=== PATIENT | male | born 1955 | race Caucasian/White ===

== ENCOUNTER 2017-01-21 13:53 | Inpatient (IN) | payer OTHER ==
[~2017-01-21] VITALS: Ht 180.3 cm; Wt 94.9 kg
[2017-01-21] MEDS: ATORVASTATIN 40 MG (LIPITOR) TABLET PO SCH (20:54)
[2017-01-21] MEDS: meTOprolol TARTRATE 25 MG (LOPRESSOR) TABLET PO SCH (20:54)
[2017-01-21] MEDS: inSUlin DETERMIR 1 UNIT/0.01 ML (LEVEMIR) CHARGE PER UNIT SQ SCH (20:54)
[2017-01-21] MEDS: hydrALAZINE (APRESOLINE) 25 MG TAB PO SCH (21:47)
[2017-01-21 21:52] VITALS: BP 176/88
[2017-01-22 06:19] VITALS: BP 161/86
[2017-01-22] MEDS: hydrALAZINE (APRESOLINE) 25 MG TAB PO SCH ×3 (06:22→21:06)
[2017-01-22] MEDS: amLODIPine 5 MG (NORVASC) TAB PO SCH (08:14)
[2017-01-22] MEDS: ASPIRIN 325 MG (5 GR) TABLET PO SCH (08:14)
[2017-01-22] MEDS: meTOprolol TARTRATE 25 MG (LOPRESSOR) TABLET PO SCH ×2 (08:14→21:06)
--- NOTE | 2017-01-22 09:46 | Occupational Therapy Eval ---
OT Evaluation-General/PLF Medical Diagnosis Admission Date Jan 21, 2017 at 18:40 Medical Diagnosis: CVA with right hemiparesis Onset Date: Jan 17, 2017 Therapy Diagnosis Therapy Diagnosis: Weakness, Decreased ADL skills Height/Weight Height (Feet): 5 Height (Inches): 11.00 Weight (Pounds): 206 Weight (Ounces): 12.8 Precautions Precautions/Isolations: Aspiration, Fall Prevention Safety Interventions: Reorient-PRN Weight Bear Status Weight Bearing Restriction: Weight Bearing/Tolerated Referral Physician: Damien Referral Reason: Activity Tolerance, Self Care, Evaluation/Treatment, Strengthening/ROM Medical History Pertinent Medical History: DM Additional Medical History Pt. states that he had a CVA 12 years ago. Current History Pt. fell the night before his CVA. Fell the next morning as well. Went to work. Began having symptoms. Reviewed History: Yes Social History Home: Single Level Current Living Status: Significant Other Entry Into Home: Stairs With Railing Steps Into Home: 3 ADL-Prior Level of Function ADL PLOF Comments Pt. was independent with daily tasks. DME/Equipment: Tub/Shower DME/Equipment Comments Pt. has no equipment at home. 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 Lives in [place] with spouse. Drive Self: Yes OT Current Status Subjective No pain reported. Appearance Pt. in bed. Verbalizes greeting. Agrees to bathe. Mental Status/Objective Patient Orientation: Person Current Hand Dominance: Right Upper Extremity ROM Left- WFL Right- no functional movement noted throughout. Upper Extremity Coordination Left- intact Right- impaired. Upper Extremity Sensation Right- pt. is able to indicate light touch throughout hand, forearm, and upper arm. Upper Extremity Strength No trace movement or strength noted in right UE. Left UE- WFL ADL-Treatment Functional Bieber Measure 0=Not Assessed/NA 4=Minimal Assistance 1=Total Assistance 5=Supervision or Setup 2=Maximal Assistance 6=Modified Bieber 3=Moderate Assistance 7=Complete IndependenceIRFPAI Quality Coding Scale 6 Independent with activity with or without an assistive device 5 Patient requires set up or clean up by helper. Patient completes activity by themselves 4 Supervision or touching assist (CGA). [place] provide cues , steadying assist 3 The helper provides less than half the effort to complete the activity 2 The helper provides more than half the effort to complete the activity 1 Dependent. The helper does all the effort to complete an activity 7 Patient refused to complete or attempt activity 9 The patient did not perform the activity before the current illness or injury 88 Not attempted due to Medical conditions or safety concerns Grooming (FIM): 5 (Pt. is able to comb hair with left hand with set up.) Bathing (FIM): 2 (Overall, pt requires max assist. Unable to reach bilateral feet or LE. Unable to wash left arm or marta area.) Shower/Bathe Self (QC): 2 Upper Body Dressing (FIM): 2 (Max assist to don shirt, mod assist to doff shirt.) Upper Body Dressing (QC): 2 Lower Body Dressing (FIM): 2 (Pt. is able to doff socks, but unable to put them back on. Has difficulty threading feet into brief and pants.) Lower Body Dressing (QC): 2 On/Off Footwear (QC): 2 Toileting (FIM): 2 (Pt. slightly incontinent of bowel in brief. Unaware of this. OT cleansed pt. Pt. attempted to cleanse self, but unable to fully clean self.) Toileting Hygiene (QC): 2 Transfers (B, C, W/C) (FIM): 3 (Mod assist for supine-sit, min/mod for sit- stand and transfer to chair.) Other Treatments OT/PT co-treated this date. PT focused on balance, LE strength, ambulation, and transfers. OT addressed ADL skills and UE ability. Co-treat due to pt's fatigue level and amount of skilled assist needed for fluid and functional assessment. Note that pt. has slight right sided neglect. Will test this more in depth later. Pt. and family educated about rehab stay, and need to be aware of right side. Both verbalize understanding. Noted that pt. does attend to right side during treatment, and attempts to engage right UE. Went back to room with all needs met. Transferred to lift chair. Education OT Patient Education: Correct positioning, Exercise program, Instructions to caregiver, Modified ADL techniques, Progress toward Goal/Update tx plan, Purpose of tx/functional activities, Reviewed precautions, Rehab process, Safety issues, Transfer techniques Teaching Recipient: Patient, Family Teaching Methods: Demonstration, Discussion Response to Teaching: Verbalize Understanding, Return Demonstration OT Short Term Goals Short Term Goals Time Frame: Jan 29, 2017 Eating(FIM): 5 Grooming(FIM): 5 Bathing(FIM): 4 Upper Body Dressing(FIM): 4 Lower Body Dressing(FIM): 4 Toileting(FIM): 4 Transfers (B,C,W/C) (FIM): 4 Toilet/Commode Transfer(FIM): 4 Shower Transfer(FIM): 4 Additional Short Term Goals: 1-Demonstrate ADL Tasks, 2-Verbalize Understanding , 3-ImproveStrength/Delmy 1=Demonstrate adherence to instructed precautions during ADL tasks. 2=Patient will verbalize/demonstrate understanding of assistive devices/ modifications for ADL. 3=Patient will improve strength/tolerance for activity to enable patient to perform ADL's. OT Laboratory Analyst Goals Senior Living Goals Time Frame: Feb 12, 2017 Eating (FIM): 6 Eating (QC): 6 Groomin Oral Hygiene (QC): 6 Bathing(FIM): 5 Shower/Bathe Self (QC): 5 Upper Body Dressing(FIM): 6 Upper Body Dressing (QC): 6 Lower Body Dressing(FIM): 6 Lower Body Dressing (QC): 6 On/Off Footwear (QC): 6 Toileting(FIM): 6 Toileting Hygiene (QC): 6 Transfers (B,C,W/C) (FIM): 6 Toilet/Commode Transfer(FIM): 6 Toilet/Commode Transfer (QC): 6 Shower Transfer(FIM): 6 Additional Goals: 1-Demonstrate ADL Tasks, 2-Verbalize Understanding, 3- ImproveStrength/Delmy 1=Demonstrate adherence to instructed precautions during ADL tasks. 2=Patient will verbalize/demonstrate understanding of assistive devices/ modifications for ADL. 3=Patient will improve strength/tolerance for activity to enable patient to perform ADL's. OT Education/Plan Problem List/Assessment Assessment: Decreased Activ Tolerance, Decreased Safety Aware, Decreased UE Strength, Dependent Transfers, Impaired Bed Mobility, Impaired Cognition, Impaired Coordination, Impaired Funct Balance, Impaired I ADL's, Impaired Self- Care Skills Discharge Recommendations Plan/Recommendations: Continue POC Therapy D/C Recommendations: Home w/ Family Support, Occupational Therapy Home Care Equpiment Recommendations-D/C: Extended Bath Bench, Hip Kit Barriers to Progress right sided weakness Treatment Plan/Plan of Care Treatment,Training & Education: Yes Patient would benefit from OT for education, treatment and training to promote independence in ADL's, mobility, safety and/or upper extremity function for ADL' s. Plan of Care: ADL Retraining, Caregiver Training, Cognitive Retraining, Functional Mobility, Group Exercise/Act as Ind, UE Funct Exercise/Act Treatment Duration: Feb 12, 2017 # of days/week 5-6 Agreement: Yes Rehab Potential: Good Time/GCodes Start Time: 08:35 Stop Time: 09:35 Total Time Billed (hr/min): 50 Billed Treatment Time [id number] 1, EVmod x 10minutes OT eval [id number] PT eval no charge [id number] ADL x 40 minutes (ADL x 2 due to time) co-treat- Please see note above. JL PÉREZ OT Jan 22, 2017 09:46
--- NOTE | 2017-01-22 09:54 | Consultation ---
History of Present Illness History of Present Illness Patient Consulted On(torres/time) 01/22/17 09:43 Date of Admission History of Present Illness patient came from [facility] in [place]. Patient is a 61-year-old male who had hypertension. Blood pressure 240/145 and a blood glucose of 259 patient developed weakness in his right side. Scans showed tiny intracerebral bleeding and bilateral ischemic changes Patient 11 years ago had a stroke on his right side. Patient lost weight and blood pressure went down and has not had to be in any blood pressure pills for the last 2 years Allergies and Home Medications Allergies Coded Allergies: No Known Drug Allergies (Unverified , 01/21/17) Home Medications No Active Prescriptions or Reported Meds Past Qjwkagz-Zhaivl-Lvaxxc Hx Patient Social History Alcohol Use: Denies Use Recreational Drug Use: No Smoking Status: Never a Smoker Recent Foreign Travel: No Recent Hopitalizations: Yes Physical Abuse Screen: No Sexual Abuse: No Immunizations Up To Date PED Vaccines UTD: No Seasonal Allergies Seasonal Allergies: No Surgeries Surgeries: Bladder Surgery Respiratory Hx Respiratory Disorders: No Cardiovascular Cardiac Disorders: Hypertension Cancer Cancer: Bladder Family Medical History Family Medial History: Cataracts 19 MOTHER Dementia 19 MOTHER Review of Systems-General Constitutional: weakness EENTM: no symptoms reported Respiratory: no symptoms reported Cardiovascular: other (hypertension) Gastrointestinal: no symptoms reported Genitourinary: no symptoms reported Physical Exam-General Problems Physical Exam Vital Signs Vital Sign - Last 12Hours 01/21/17 21:52 Temp 96.7 Pulse 69 Resp 20 B/P 176/88 Pulse Ox 99 O2 Delivery Room Air Capillary Refill : General Appearance: WD/WN no apparent distress Eyes: Bilateral Eye Normal Inspection HEENT: normal ENT inspection Neck: normal inspection Respiratory: chest non-tender lungs clear normal breath sounds no respiratory distress no accessory muscle use Cardiovascular: regular rate, rhythm no murmur Gastrointestinal: non tender soft Assessment/Plan Assessment/Plan Admission Diagnosis/Plan CVA on right. Hypertension. Diabetes. Patient when asked questions has a slow thought process. Patient unable to pick up operator right hand. Patient does move his right leg Clinical Quality Measures DVT/VTE Risk/Contraindication: Risk Factor Score Per Nursin RFS Level Per Nursing on Admit: 4+=Very High BENJY SANTANA DO Jan 22, 2017 09:54
[2017-01-22] MEDS: inSUlin ASPART (NovoLOG) 1 UNIT/0.01 ML (CHARGE PER UNIT) SC SCH ×3 (10:57→20:43)
--- NOTE | 2017-01-22 11:19 | Physical Therapy Evaluation ---
PT Evaluation-General Medical Diagnosis Admission Date Jan 21, 2017 at 18:40 Medical Diagnosis: CVA with right hemiparesis Onset Date: Jan 17, 2017 Therapy Diagnosis Therapy Diagnosis: weakness; abn gait Height/Weight Height (Feet): 5 Height (Inches): 11.00 Weight (Pounds): 206 Weight (Ounces): 12.8 Precautions Precautions/Isolations: Aspiration, Fall Prevention, Standard Precautions Weight Bear Status Weight Bearing Restriction: Weight Bearing/Tolerated Referral Physician: Damien Reason for Referral: Evaluation/Treatment Medical History Pertinent Medical History: CVA (11 yrs ago), DM Current History Pt admitted to acute rehab due to CVA with right sided weakness. 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 Reviewed History: Yes Social History Home: Single Level Current Living Status: Significant Other Entry Into Home: Stairs With Railing PT Steps Into Home: 3 Prior/Core FIM Prior Level of Function Functional Person Measure 0=Not Assessed/NA 4=Minimal Assistance 1=Total Assistance 5=Supervision or Setup 2=Maximal Assistance 6=Modified Person 3=Moderate Assistance 7=Complete Person Bed Mobility: 7 Transfers (B,C,W/C) (FIM): 7 Gait: 7 Indep with all mobility. 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 Active. PT Evaluation-Current Subjective Pt reports he had a stroke on Tuesday. 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 Pt agreeable to PT. and son present. Pain Numeric Pain Scale: 0-No Pain Location: No Pain Reported Objective Patient Orientation: Person, Place, Time, Situation Problem Solving: Good (although he is a bit impulsive) ROM/Strength ROM Lower Extremities WNL all planes; AAROM right LE. Strenght Lower Extremities Left LE strength is grossly 5/5 throughout. Right: DF 1/5, quads 2/5, hamstring 2/5, hip flex 2/5 Integumentary/Posture Integumentary intact Bowel Incontinence: No Bladder Incontinence: Yes (urgency ) Posture normal and symmetrical Neuromuscular (Tone, Coordination, Reflexes) No sig increased or decreased tone right side; coordination greatly affected right but reflexes intact. Sensory Vision: Functional Hearing: Functional Hand Dominance: Right Sensation Right Lower Extremit: Intact Sensation Left Lower Extremity: Intact Transfers Functional Person Measure 0=Not Assessed/NA 4=Minimal Assistance 1=Total Assistance 5=Supervision or Setup 2=Maximal Assistance 6=Modified Person 3=Moderate Assistance 7=Complete IndependenceIRFPAI Quality Coding Scale 6 Independent with activity with or without an assistive device 5 Patient requires set up or clean up by helper. Patient completes activity by themselves 4 Supervision or touching assist (CGA). [place] provide cues , steadying assist 3 The helper provides less than half the effort to complete the activity 2 The helper provides more than half the effort to complete the activity 1 Dependent. The helper does all the effort to complete an activity 7 Patient refused to complete or attempt activity 9 The patient did not perform the activity before the current illness or injury 88 Not attempted due to Medical conditions or safety concerns Transfers (B, C, W/C) (FIM): 3 Scootin Rollin Roll Left to Right (QC): 4 Supine to/from Sit: 4 (CGA and skilled cues to sequence. ) Sit to/from Stand: 3 (Lift assist and heavy cues for sequencing and safety) bed t/f WC(FIM only if WC use): 3 (quad cane) Sit to Lying (QC): 4 Lying to Sitting/Side of Bed(Q: 4 Sit to Stand (QC): 3 Chair/Cji-gu-Vvgkn Xfer(QC): 3 Car Transfer (QC): 3 (per family report) Performed SPT x 4 reps with quad cane with mod assist for safety and heavy cues for sequencing. Gait Mode of Locomotion: Both Anticipated Mode of Locomotion: Both Gait (FIM): 2 Distance (FIM): 1=up to 49 ft Walk 10 feet (QC): 3 (mod assist to ambulate 10 ft with QC and skilled cues for safety) Walk 50 ft with 2 Turns(QC): 88 (unable to do so) Walk 150 ft (QC): 88 Walking 10ft/uneven surface-QC: 88 (unsafe and unable to perform) Distance: 10 ft and 5 ft Gait Level of Assist: 3 Gait Persons Needed: 2 Gait Assistive Device: Cane Large Base Quad Comments/Gait Description Step to gait with the left; uncoordinated movement and placement right LE with gait. Lacks DF with heel strike and lacks toe off; difficulty coordinately placing right LE; knee pops back into extension with weight acceptance on the right. Leans to the right ,requiring min to mod assist to maintain upright posture and followed closely by wheelchair. Wheelchair Training Does the Pt Use a Wheelchair?: Yes Wheelchair (FIM): 2 Wheelchair Distance (FIM): 3=610-34 ft Distance: 100ft Wheelchair Level of Assist: 5 Wheel 50 ft with 2 turns (QC): 4 (cues and occas assist for turns) Wheel 150 ft (QC): 88 (not able to go this distance yet; fatigue) Type of Wheelchair: Manual Assist to place right LE on foot peddle; pt propels with left U/LE, skilled cues to perform. Educating on importance of use of brakes at all time. Stairs Stairs (FIM): 0 (unable/unsafe to attempt due to right affected CVA) 1 Step (curb) (QC): 88 4 Steps (QC): 88 12 Steps (QC): 88 Balance Sitting Static: Fair Sitting Dynamic: Fair Standing Static: Fair Standing Dynamic: Fair Picking up an Object (QC): 88 (unsafe to attempt due to fall risk) Treatment Co treat with OT. OT addressed self care and ADL's. Pt focused on directing patient with safety and sequencing with sit to from stand transfers to wash and dress as well as seated trunk stability/balance while bathing and dressing. Pt requires heavy cues for safety and to sequence as he likes to go fast with all tasks. OT directed all self care whilst PT directed the transfers, balance, and safety with upright mobility. Assessment/Needs Pt present post CVA with right sided weakness. He does have movement of the right LE but weak and uncoordinated. He follows cues well and seems to have some decreased safety awareness. He needs assist with all functional transfers , has limited functional gait, needs assist with wheelchair mobility and will need assist/supervision with all mobility at this time. He is an excellent candidate for ARU to work on increaseing his function so he can return home with his . He is motivated and has good potential. he does have a history of previous CVA which may be a barrier. Rehab Potential: Good Post Rehab Potential-Barriers: hx of CVA with righ affected PT Short Term Goals Short Term Goals Time Frame: Feb 05, 2017 Transfers (B,C,W/C) (FIM): 4 Gait (FIM): 4 Distance (FIM): 3=150 ft Gait Assistive Device: Cane Large Base Quad Stairs (FIM): 2 # of Steps: 4 Stairs Level of Assist: 4 PT Custodial Goals Custodial Goals PT Asthma Educator Goals Time Frame: Feb 19, 2017 Transfers (B,C,W/C) (FIM): 6 Sit to Lying (QC): 6 Lying-Sitting on Side/Bed(QC): 6 Sit to Stand (QC): 6 Roll Left to Right (QC): 6 Chair/Ncy-ng-Pyncw Xfer(QC): 6 Car Transfer (QC): 6 Does the Patient Walk: Yes Gait (FIM): 5 (household) Gait distance (FIM): 3=101-51 ft Distance: 50 ft household Walk 10 feet (QC): 5 Walk 10ft-Uneven Surface(QC): 4 Walk 50ft with 2 Turns (QC): 5 Walk 150 ft (QC): 4 (asssit with this, CGA) Gait Assistive Device: Cane Large Base Quad Does the Pt use WC or Scooter?: Yes Wheelchair (FIM): 6 Wheelchair distance (FIM): 3=150 ft Wheel 50 feet with 2 turns (QC: 6 Stairs (FIM): 5 (household) # of Steps: 8 1 Step (curb) (QC): 5 4 Steps (QC): 5 12 Steps (QC): 5 Stairs Level Of Assist: 6 Picking up an Object (QC): 4 Pt's goals are to dischrge in 3 weeks home. I set goals for 4 weeks as I feel this is a reasonable time frame for pateint to return home with a cane and walker for mobility. Goals are set for him to be mod indep with wheelchair and transfers and supervision for gait. PT Plan Problem List Problem List: Activity Tolerance, Functional Strength, Safety, Balance, Gait, Transfer, Bed Mobility Treatment/Plan Treatment Plan: Continue Plan of Care Treatment Plan: Bed Mobility, Education, Functional Activity Delmy, Functional Strength, Group Therapy, Gait, Safety, Therapeutic Exercise, Transfers Treatment Duration: Feb 19, 2017 # of days/week 5-6 Visits Per Week: 10-*15 Minutes/Day (M-F): 60-90 Minutes/Day (Sat/Gonzalez): prn Pt/Family Agrees w/Plan: Yes Safety Risks/Education Patient Education: Transfer Techniques, Safety Issues Teaching Recipient: Patient Teaching Methods: Demonstration, Discussion Response to Teaching: Verbalize Understanding, Return Demonstration, Reinforcement Needed Time/GCodes Time In: 845 Time Out: 935 Total Billed Treatment Time: 50 Total Billed Treatment visit EVM 10 FA 40 (co treat with OT [id number]) CHULA MULLEN PT Jan 22, 2017 11:19
--- NOTE | 2017-01-22 12:09 | HISTORY AND PHYSICAL ---
DATE OF ADMISSION: 01/21/2017 CHIEF COMPLAINT: Right-sided weakness, difficulty with walking. HISTORY OF PRESENT ILLNESS: The patient is a 61-year-old male known to have hypertension who developed right arm and right leg weakness about 24 hours prior to presentation to [facility] ER. Blood pressure was elevated and blood glucose was 259. He reported that he did not know that he had diabetes mellitus. His serum creatinine is 1.37. MRI and CT revealed tiny intracerebral bleeding. An MRI showed bilateral ischemic changes. The patient states that he had a stroke 11 years ago but had no residual from it. He is not taking any medications for his hypertension for the past 2 years. He had been independent prior to this. Currently he requires assistance for his ADLs and mobility skills. His blood pressure and diabetes were brought under control. He was seen by neurology,and managed by hospitalist service at [facility] and medically stabilized. He was referred to Inpatient Rehabilitation Unit at [facility].Currently he is mod assist for transfers and gait with [facility] .He has a mild dysarthria due mild mild labial weakness on the rt.He has a mild memory impairment.He is setup for grooming and requires max assist for dressing and toileting PAST MEDICAL HISTORY: 1. Bladder cancer. 2. Cerebrovascular disease. 3. Hypertension. PAST SURGICAL HISTORY: 1. Tonsillectomy. 2. Heart catheterization. 3. Bladder surgery. ALLERGIES: No known medication allergies. FAMILY HISTORY: Noncontributory. SOCIAL HISTORY: Former , retired [employer]. He lives in [place] with his spouse. No tobacco or alcohol. REVIEW OF SYSTEMS: Ten-point review of systems is significant for mild right-sided weakness and gait imbalance. MEDICATIONS: See EMR. Meds Include Insulin,amlodipine and Metoprolol PHYSICAL EXAMINATION: Significant for a male, appearing his stated age, alert and oriented in no acute distress. VITAL SIGNS: Blood pressure 160/86, pulse is 89. He is afebrile. Respirations 20, height 5 feet 11 inches, weight 215 pounds. O2 sat 99% on room air and BMI 29.99 before meals. HEENT: Vision, speech, hearing, grossly intact. No oral lesion is noted. NECK: Supple without mass. HEART: Regular rhythm. CHEST: Clear. ABDOMEN: Soft, nontender. Bowel sounds present. EXTREMITIES: No lower leg edema, no calf tenderness. MUSCULOSKELETAL: The patient has functional active range of motion of all 4 extremities. NEUROLOGIC: He has mild right-sided labial droop and gait imbalance. Sensation is grossly intact to touch. Cognition is mildly impaired as per above He is rt handed.Coordination impaired on the rt LUE strength within functional limits No volitional strength RUE Sensation is grossly intact to touch LLE strength 5-/5 RT LOwer Extremity 1/5 dorsiflexion quads 2/5 hamstrings 2/5 hip flex 2/5 tone normal in RT Leg . IMPRESSION: 1. Ambulatory dysfunction secondary to CVA with intracerebral bleed due to hypertensive crisis, now with hypertension brought under control. with resulting RT HP, cognitive impairemnt and mild dysarthria 2. Hypertension, controlled with medication. 3. Diabetes mellitus, on medication. 4. History of a bladder cancer, status post surgery. PLAN: The patient will have a comprehensive program of inpatient rehabilitation with goal of maximizing level of functional dependence prior to discharge home with spouse. The patient will have PT/OT 90 minutes per day, each discipline, 5 days a week, when not being seen by speech therapy, for gait strengthening, conditioning, balance, ADLs, any patient/family/caregiver training necessary, any adaptive equipment and training necessary. Speech therapy to see patient in regard to cognition, speech, swallow and treat as indicated 3 to 5 times a week 30 to 45 minutes per day. Rehabilitation nursing assist with bowel, bladder, skin care, medication administration. marketing services specialist to assist with discharge planning, community reentry. Routine admission labs. Monitor Accu-Cheks. Consult Dr. Peck to assist with medical management. ESTIMATED LENGTH OF STAY: Two weeks. PROGNOSIS: Rehab prognosis appears good for goal of discharging home with spouse, modified independent to supervision for ADLs and mobility skills. DIET: Regular. CODE STATUS: Full code. POST ADMISSION PHYSICIAN ASSESSMENT: The preadmission screen agrees with the post admission assessment that the patient is a good candidate for inpatient rehabilitation. The patient appears to be well motivated to participate in 3 hours of therapy a day and he should be able to tolerate 3 hours of therapy a day from a medical standpoint. He should benefit from the 3 hours of therapy a day. He has a reasonable discharge plan, reasonable discharge rehabilitation goals and a supportive family. He has various comorbidities that need to be closely monitored with medications and treatments adjusted on daily basis as needed. These include his hypertension. Barriers for discharge for this patient who had been independent prior to this are for him to be modified independent to supervision for ADLs and mobility skills prior to discharge home with spouse and with home health care most likely. Risks for this patient include: 1. Recurrent stroke. 2. Poorly controlled blood sugars. 3. Poorly controlled hypertension. 4. Fall. 5. Fracture. 6. DVT. 7. Pulmonary embolism. 8. Urinary retention. 9. UTI. 10. Respiratory infection. 11. Aspiration. We will utilize SCDs for DVT prophylaxis as the patient has had a recent bleed. Job ID: [id number] Dictated Date: 01/22/2017 08:33:17 Optical Instrument Assembly Supervisor Date: 01/22/2017 11:53:01/rodri PAUL
[2017-01-22 13:43] VITALS: BP 145/75
[2017-01-22 18:00] VITALS: BP 169/86
[2017-01-22] MEDS: inSUlin DETERMIR 1 UNIT/0.01 ML (LEVEMIR) CHARGE PER UNIT SQ SCH (21:06)
[2017-01-22] MEDS: ATORVASTATIN 40 MG (LIPITOR) TABLET PO SCH (21:06)
[2017-01-23] MEDS: hydrALAZINE (APRESOLINE) 25 MG TAB PO SCH ×3 (05:47→21:05)
[2017-01-23] MEDS: inSUlin ASPART (NovoLOG) 1 UNIT/0.01 ML (CHARGE PER UNIT) SC SCH ×4 (05:52→21:00)
[2017-01-23 05:54] VITALS: BP 157/89
[2017-01-23 06:13] LABS: BILIRUBIN,TOTAL 1.1 MG/DL (0.1-1.0); CREATININE SERUM 1.56 MG/DL (0.60-1.30); POTASSIUM 4.1 MMOL/L (3.6-5.0); TOTAL PROTEIN 6.8 G/DL (6.4-8.2)
[2017-01-23] MEDS: ASPIRIN 325 MG (5 GR) TABLET PO SCH (08:10)
[2017-01-23] MEDS: amLODIPine 5 MG (NORVASC) TAB PO SCH (08:10)
[2017-01-23] MEDS: meTOprolol TARTRATE 25 MG (LOPRESSOR) TABLET PO SCH ×2 (08:10→21:05)
[2017-01-23 13:24] VITALS: BP 138/82
[2017-01-23 17:58] VITALS: BP 144/86
[2017-01-23] MEDS: ATORVASTATIN 40 MG (LIPITOR) TABLET PO SCH (21:05)
[2017-01-23] MEDS: inSUlin DETERMIR 1 UNIT/0.01 ML (LEVEMIR) CHARGE PER UNIT SQ SCH (21:05)
[2017-01-24 04:18] VITALS: BP 149/79
[2017-01-24] MEDS: inSUlin ASPART (NovoLOG) 1 UNIT/0.01 ML (CHARGE PER UNIT) SC SCH ×4 (06:00→20:59)
[2017-01-24] MEDS: hydrALAZINE (APRESOLINE) 25 MG TAB PO SCH ×3 (06:21→21:20)
--- NOTE | 2017-01-24 07:52 | Progress Note (SOAP) ---
Subjective Subjective/Events-last exam CVA on right. Hypertension Patient did walk this weekend. Patient did move right upper extremity by the elbow this this morning.. Patient wasn't able to do that when he came in. Patient voices no complaints Patient disease of occupational therapy and physical therapy Objective Exam Vital Signs Date Time Temp Pulse Resp B/P Pulse Ox O2 Delivery O2 Flow Rate FiO2 01/24/17 04:18 96.9 62 18 149/79 97 Room Air 01/23/17 20:20 Room Air 01/23/17 17:58 97.4 73 18 144/86 97 Room Air 01/23/17 13:24 69 138/82 01/23/17 09:31 Room Air I & O 01/24/17 07:00 Intake Total 1030 ml Output Total 950 ml Balance 80 ml Capillary Refill : General Appearance: No Apparent Distress WD/WN HEENT: Normal ENT Inspection Neck: Full Range of Motion Normal Inspection Respiratory: Chest Non Tender Lungs Clear Normal Breath Sounds No Accessory Muscle Use No Respiratory Distress Cardiovascular: Regular Rate, Rhythm No Murmur Gastrointestinal: non tender soft Results Lab Laboratory Tests 01/23/17 10:55: Glucometer 157H 01/23/17 16:27: Glucometer 157H 01/23/17 20:10: Glucometer 146H 01/24/17 06:21: Glucometer 121H Assessment/Plan Assessment/Plan Assess & Plan/Chief Complaint CVA on right. Hypertension. Diabetes. Patient when asked questions has a slow thought process. Patient unable to mushroom picker right hand. Patient does move his right leg. . 01/24/17. CVA on right. Hypertension. Diabetes. Patient is improving. Patient positive Diagnosis/Problems: Clinical Quality Measures DVT/VTE Risk/Contraindication: Risk Factor Score Per Nursin RFS Level Per Nursing on Admit: 4+=Very High BENJY SANTANA DO Jan 24, 2017 07:52
[2017-01-24] MEDS: ASPIRIN 325 MG (5 GR) TABLET PO SCH (08:11)
[2017-01-24] MEDS: amLODIPine 5 MG (NORVASC) TAB PO SCH (08:11)
[2017-01-24] MEDS: meTOprolol TARTRATE 25 MG (LOPRESSOR) TABLET PO SCH ×2 (08:11→21:20)
--- NOTE | 2017-01-24 10:09 | ST Cognitive Linguistic Eval ---
Speech Evaluation-General Medical Diagnosis CVA with right hemiparesis Onset Date: Jan 17, 2017 Therapy Diagnosis Therapy Diagnosis: Mild Expressive Aphasia, Mild Cognitive Deficit Precautions Precautions/Isolations: Aspiration, Fall Prevention, Standard Precautions Referral Referring Physician: Dr. Akira Quezada Reason for Referral: Evaluation/Treatment Speech, Language, and Cognitive Evaluation Medical History Pertinent Medical History: CVA (11 yrs ago), DM Reviewed History: Yes Social History Home: Single Level Current Living Status: Significant Other Speech PLF-Current Status Prior Level of Function The patient denied any speech, language, or cognitive challenges prior to admission for his recent CVA. Subjective The patient was recently admitted to [facility] Rehabilitation Unit with a diagnosis of a left putamen cerebral hemorrhage (CVA) with resulting right hemiparesis. The patient greeted the clinician appropriately and agreed to participate in the speech, language, and cognitive evaluation on this date. Language Eval: Auditory Comprehends Simple Yes/No Ques: Functional Indent/Objects Multiple Brice: Functional Ident/Pics in Multiple Brice: Functional Follows 1-Step Commands: Functional Follows Complex Directions: Functional Follows General Conversations: Functional Language Eval: Verbal Language Completes Spontaneous Greeting: Functional Produces Auto, Serial Info: Mild Imitates Simple Words/Phrases: Functional Word Finding: Moderate Requests Basic Needs: Functional States Basic Personal Info: Functional Expresses Complex Ideas: Mild Cognitive Patient Orientation The patient was oriented to month, day of week, date, year, and rationale for rehabilitation stay. Objective Cognitive Domain Attention: WNL Memory: Mild Problem Solving: Functional Objective Oral Motor/Speech Production The patient demonstrated mildly imprecise articulation secondary to right labial weakness. The patient remained 100% intelligible in known and unknown contexts. Impression The patient demonstrated mild expressive aphasia characterized by word-finding difficulties. Additionally, the patient demonstrated mild cognitive impairments in the area of memory. Communication/Social Cognition Comprehension: 4 Expression: 4 Social Interaction: 6 Problem Solvin Memory: 4 Speech Patient Assess Expression of Ideas/Wants: Exhibits (3) Understanding [place] Content: Usually Understands (3) Brief Interview-Mental Status: Yes Repetition of Three Words: One (1) Temporal Orientation: Year: Correct (3) Temporal Orientation: Month: Accurate within 5 days(2) Temporal Orientation: Day: Correct (1) Recall : Wear to say "Sock": No, could not recall (0) Recall : Color: Yes, after cueing (1) Recall : Bed: No, could not recall (0) Speech Short Term Goals Short Term Goals Short Term Goals 1. The patient will demonstrated 80% accuracy throughout structured word- finding tasks, independently. 2. The patient will recall and demonstrate two functional memory strategies for use at home, independently. Time Frame-STG: Two Weeks Speech [facility] Goals [facility] Goals 1. The patient will demonstrated improved expressive communication and cognitive skills for increased function and safety with ADL's. Time Frame: Four Weeks Comprehension: 6 Expression: 5 Social Interaction: 6 Problem Solvin Memory: 5 Speech-Plan Treatment Plan Speech Therapy Treatment Plan: Continue Plan of Care Continue skilled speech services for improved expressive communication and functional memory strategies. Treatment Duration: Feb 21, 2017 # of days/week Four to five. Visits Per Week: Four to five. Rehab Potential: Good Safety Risks/Education Teaching Recipient: Patient Teaching Methods: Discussion Response to Teaching: Verbalize Understanding Education Topics Provided: Plan of Care Time Speech Therapy Time In: 09:15 Speech Therapy Time Out: 09:30 Total Billed Time: 15 Billed Treatment Time 1, FRANCOIS PINK Jan 24, 2017 10:09
--- NOTE | 2017-01-24 10:39 | Occupational Ther Daily Note ---
OT Current Status-Daily Note Subjective Pt in bed, agrees to treatment. Pt has no c/o pain. Mental Status/Objective Functional [place] Measure 0=Not Assessed/NA 4=Minimal Assistance 1=Total Assistance 5=Supervision or Setup 2=Maximal Assistance 6=Modified [place] 3=Moderate Assistance 7=Complete [place] ADL-Treatment Supine to sit with moderate assistance. Pt transferred EOB to w/c with moderate assistance and cues for safety. Sponge bath completed while seated in chair. Pt able to wash right UE, chest, abdomen, marta area, bilateral upper legs, and left lower leg. Assist required for other areas. Pt able to recall technique for UE dressing. Pt donned shirt with moderate assistance. Assist required to start Depends and pants over feet. Stood with moderate assistance for balance during pant hike. Assist required to pull pants up over right hip. Max assist required to don socks. Pt requires increased time for all ADL tasks. Pt fatigues with activity and requires frequent rest breaks. Pt combed hair with SBA. Transfer w/c to recliner with moderate assistance. Pt sitting in chair with needs met after session. Functional [place] Measure 0=Not Assessed/NA 4=Minimal Assistance 1=Total Assistance 5=Supervision or Setup 2=Maximal Assistance 6=Modified [place] 3=Moderate Assistance 7=Complete IndependenceIRFPAI Quality Coding Scale 6 Independent with activity with or without an assistive device 5 Patient requires set up or clean up by helper. Patient completes activity by themselves 4 Supervision or touching assist (CGA). [place] provide cues , steadying assist 3 The helper provides less than half the effort to complete the activity 2 The helper provides more than half the effort to complete the activity 1 Dependent. The helper does all the effort to complete an activity 7 Patient refused to complete or attempt activity 9 The patient did not perform the activity before the current illness or injury 88 Not attempted due to Medical conditions or safety concerns Grooming (FIM): 5 (combing hair only) Bathing (FIM): 3 Upper Body (FIM): 3 Lower Body Dressing (FIM): 2 Education OT Patient Education: Modified ADL techniques Teaching Recipient: Patient Teaching Methods: Demonstration, Discussion Response to Teaching: Verbalize Understanding OT Short Term Goals Short Term Goals Time Frame: Jan 29, 2017 Eating(FIM): 5 Grooming(FIM): 5 Bathing(FIM): 4 Upper Body Dressing(FIM): 4 Lower Body Dressing(FIM): 4 Toileting(FIM): 4 Transfers (B,C,W/C) (FIM): 4 Toilet/Commode Transfer(FIM): 4 Shower Transfer(FIM): 4 Additional Short Term Goals: 1-Demonstrate ADL Tasks, 2-Verbalize Understanding , 3-ImproveStrength/Delmy 1=Demonstrate adherence to instructed precautions during ADL tasks. 2=Patient will verbalize/demonstrate understanding of assistive devices/ modifications for ADL. 3=Patient will improve strength/tolerance for activity to enable patient to perform ADL's. OT Jewelry Casting Model Maker Apprentice Goals Shelter Goals Time Frame: Feb 12, 2017 Eating (FIM): 6 Eating (QC): 6 Groomin Oral Hygiene (QC): 6 Bathing(FIM): 5 Shower/Bathe Self (QC): 5 Upper Body Dressing(FIM): 6 Upper Body Dressing (QC): 6 Lower Body Dressing(FIM): 6 Lower Body Dressing (QC): 6 On/Off Footwear (QC): 6 Toileting(FIM): 6 Toileting Hygiene (QC): 6 Transfers (B,C,W/C) (FIM): 6 Toilet/Commode Transfer(FIM): 6 Toilet/Commode Transfer (QC): 6 Shower Transfer(FIM): 6 Additional Goals: 1-Demonstrate ADL Tasks, 2-Verbalize Understanding, 3- ImproveStrength/Delmy 1=Demonstrate adherence to instructed precautions during ADL tasks. 2=Patient will verbalize/demonstrate understanding of assistive devices/ modifications for ADL. 3=Patient will improve strength/tolerance for activity to enable patient to perform ADL's. OT Education/Plan Discharge Recommendations Plan/Recommendations: Continue POC Treatment Plan/Plan of Care Patient would benefit from OT for education, treatment and training to promote independence in ADL's, mobility, safety and/or upper extremity function for ADL' s. Plan of Care: ADL Retraining, Caregiver Training, Cognitive Retraining, Functional Mobility, Group Exercise/Act as Ind, UE Funct Exercise/Act Treatment Duration: Feb 12, 2017 Agreement: Yes Rehab Potential: Good Time/GCodes Start Time: 08:00 Stop Time: 09:15 Total Time Billed (hr/min): 75 Billed Treatment Time 1 visit, ADLx5(75minutes) JOSSIE GALVEZ OT Jan 24, 2017 10:39
--- NOTE | 2017-01-24 11:09 | Occupational Ther Daily Note ---
OT Current Status-Daily Note Subjective Pt sitting in chair, agrees to treatment. Pt has no c/o pain. Mental Status/Objective Functional [place] Measure 0=Not Assessed/NA 4=Minimal Assistance 1=Total Assistance 5=Supervision or Setup 2=Maximal Assistance 6=Modified [place] 3=Moderate Assistance 7=Complete [place] ADL-Treatment Functional [place] Measure 0=Not Assessed/NA 4=Minimal Assistance 1=Total Assistance 5=Supervision or Setup 2=Maximal Assistance 6=Modified [place] 3=Moderate Assistance 7=Complete IndependenceIRFPAI Quality Coding Scale 6 Independent with activity with or without an assistive device 5 Patient requires set up or clean up by helper. Patient completes activity by themselves 4 Supervision or touching assist (CGA). [place] provide cues , steadying assist 3 The helper provides less than half the effort to complete the activity 2 The helper provides more than half the effort to complete the activity 1 Dependent. The helper does all the effort to complete an activity 7 Patient refused to complete or attempt activity 9 The patient did not perform the activity before the current illness or injury 88 Not attempted due to Medical conditions or safety concerns Other Treatment Pt participated in right UE exercises to promote increased active ROM and strength needed for functional tasks. Pt demonstrates minimal active shoulder elevation and scapular retraction. Pt also demonstrates minimal active shoulder abduction. Pt fatigues very quickly with movements. PROM completed at all joints x10 reps. Pt demonstrates ability to perform self ROM to fingers, wrist and elbow. Pt sitting in chair with needs met after session. OT Short Term Goals Short Term Goals Time Frame: Jan 29, 2017 Eating(FIM): 5 Grooming(FIM): 5 Bathing(FIM): 4 Upper Body Dressing(FIM): 4 Lower Body Dressing(FIM): 4 Toileting(FIM): 4 Transfers (B,C,W/C) (FIM): 4 Toilet/Commode Transfer(FIM): 4 Shower Transfer(FIM): 4 Additional Short Term Goals: 1-Demonstrate ADL Tasks, 2-Verbalize Understanding , 3-ImproveStrength/Delmy 1=Demonstrate adherence to instructed precautions during ADL tasks. 2=Patient will verbalize/demonstrate understanding of assistive devices/ modifications for ADL. 3=Patient will improve strength/tolerance for activity to enable patient to perform ADL's. OT [facility] Goals Tying In Machine Operator Goals Time Frame: Feb 12, 2017 Eating (FIM): 6 Eating (QC): 6 Groomin Oral Hygiene (QC): 6 Bathing(FIM): 5 Shower/Bathe Self (QC): 5 Upper Body Dressing(FIM): 6 Upper Body Dressing (QC): 6 Lower Body Dressing(FIM): 6 Lower Body Dressing (QC): 6 On/Off Footwear (QC): 6 Toileting(FIM): 6 Toileting Hygiene (QC): 6 Transfers (B,C,W/C) (FIM): 6 Toilet/Commode Transfer(FIM): 6 Toilet/Commode Transfer (QC): 6 Shower Transfer(FIM): 6 Additional Goals: 1-Demonstrate ADL Tasks, 2-Verbalize Understanding, 3- ImproveStrength/Delmy 1=Demonstrate adherence to instructed precautions during ADL tasks. 2=Patient will verbalize/demonstrate understanding of assistive devices/ modifications for ADL. 3=Patient will improve strength/tolerance for activity to enable patient to perform ADL's. OT Education/Plan Discharge Recommendations Plan/Recommendations: Continue POC Treatment Plan/Plan of Care Patient would benefit from OT for education, treatment and training to promote independence in ADL's, mobility, safety and/or upper extremity function for ADL' s. Plan of Care: ADL Retraining, Caregiver Training, Cognitive Retraining, Functional Mobility, Group Exercise/Act as Ind, UE Funct Exercise/Act Treatment Duration: Feb 12, 2017 Agreement: Yes Rehab Potential: Good Time/GCodes Start Time: 10:45 Stop Time: 11:00 Total Time Billed (hr/min): 15 Billed Treatment Time 1 visit, LEILA(15minutes) JOSSIE GALVEZ OT Jan 24, 2017 11:09
--- NOTE | 2017-01-24 11:59 | Physical Therapy Daily Note ---
PT Daily Note-Current Subjective Patient in recliner pre tx, agrees to PT, no complaints of pain. Appearance Patient BTB post tx, with nurse call, phone, tray, all needs met. Mental Status Patient Orientation: Normal For Age Transfers Functional [place] Measure 0=Not Assessed/NA 4=Minimal Assistance 1=Total Assistance 5=Supervision or Setup 2=Maximal Assistance 6=Modified [place] 3=Moderate Assistance 7=Complete IndependenceIRFPAI Quality Coding Scale 6 Independent with activity with or without an assistive device 5 Patient requires set up or clean up by helper. Patient completes activity by themselves 4 Supervision or touching assist (CGA). [place] provide cues , steadying assist 3 The helper provides less than half the effort to complete the activity 2 The helper provides more than half the effort to complete the activity 1 Dependent. The helper does all the effort to complete an activity 7 Patient refused to complete or attempt activity 9 The patient did not perform the activity before the current illness or injury 88 Not attempted due to Medical conditions or safety concerns Transfers (B, C, W/C) (FIM): 3 Scootin Rollin Supine to/from Sit: 5 Sit to/from Stand: 4 Bed to/from Chair: 3 Patient performs a stand pivot transfer to the left with min assist and to the right with mod assist. Cues for hand placement and safety. Gait Training Does the Patient Walk?: Yes Gait (FIM): 1 Distance: 20'x3 Gait Level of Assist: 4 Gait Persons Needed: 1 Gait Assistive Device: Cane Large Base Quad Right selvin wrap on ankle for dorsiflex assist, min assist for balance and weight shifting, step-to gait pattern Wheelchair Training Does the Pt Use a Wheelchair?: Yes Wheelchair (FIM): 5 Distance: 150'x2 Wheelchair Level of Assist: 5 Type of Wheelchair: Manual occasional cues for obstacles Exercises NuStep Minutes: 15 NuStep Workload: 4 Treatments bed mobility and transfer training, functional strengthening, wheelchair mobility, gait training. Assessment Current Status: Fair Progress improved ambulation PT Short Term Goals Short Term Goals Time Frame: Feb 05, 2017 Transfers (B,C,W/C) (FIM): 4 Gait (FIM): 4 Distance (FIM): 3=150 ft Gait Assistive Device: Cane Large Base Quad Wheelchair Distance: 100ft Stairs (FIM): 2 # of Steps: 4 Stairs Level of Assist: 4 PT Flag Signaler Goals Care Home Goals PT Flag Signaler Goals Time Frame: Feb 19, 2017 Transfers (B,C,W/C) (FIM): 6 Sit to Lying (QC): 6 Lying-Sitting on Side/Bed(QC): 6 Sit to Stand (QC): 6 Rollin Roll Left to Right (QC): 6 Chair/[id number] Xfer(QC): 6 Car Transfer (QC): 6 Does the Patient Walk: Yes Gait (FIM): 5 (household) Gait distance (FIM): 8=433-65 ft Distance: 50 ft household Walk 10 feet (QC): 5 Walk 10ft-Uneven Surface(QC): 4 Walk 50ft with 2 Turns (QC): 5 Walk 150 ft (QC): 4 (asssit with this, CGA) Gait Assistive Device: Cane Large Base Quad Does the Pt use WC or Scooter?: Yes Wheelchair (FIM): 6 Wheelchair distance (FIM): 3=150 ft Wheel 50 feet with 2 turns (QC: 6 Stairs (FIM): 5 (household) # of Steps: 8 1 Step (curb) (QC): 5 4 Steps (QC): 5 12 Steps (QC): 5 Stairs Level Of Assist: 6 Picking up an Object (QC): 4 PT Plan Problem List Problem List: Activity Tolerance, Functional Strength, Safety, Balance, Gait, Transfer, Bed Mobility, ROM Treatment/Plan Treatment Plan: Continue Plan of Care Treatment Plan: Bed Mobility, Education, Functional Activity Delmy, Functional Strength, Group Therapy, Gait, Safety, Therapeutic Exercise, Transfers Treatment Duration: Feb 19, 2017 Visits Per Week: 10-*15 Minutes/Day (M-F): 60-90 Minutes/Day (Sat/Gonzalez): prn Safety Risks/Education Patient Education: Gait Training, Transfer Techniques, Correct Positioning, W/ C Management, Disease Process, Safety Issues Teaching Recipient: Patient Teaching Methods: Demonstration, Discussion Response to Teaching: Reinforcement Needed Time/GCodes Time In: 1100 Time Out: 1200 Total Billed Treatment Time: 60 Total Billed Treatment 1 visit EX 15 min WCH 15 min GT 30 min BROOKE WORLEY PT Jan 24, 2017 11:59
--- NOTE | 2017-01-24 13:33 | Physical Therapy Daily Note ---
PT Daily Note-Current Subjective Patient in bed pre tx, agrees to PT, no complaints of pain. Appearance Patient BTB post tx with nurse call, phone, tray, all needs met. Mental Status Patient Orientation: Normal For Age Transfers Functional [place] Measure 0=Not Assessed/NA 4=Minimal Assistance 1=Total Assistance 5=Supervision or Setup 2=Maximal Assistance 6=Modified [place] 3=Moderate Assistance 7=Complete IndependenceIRFPAI Quality Coding Scale 6 Independent with activity with or without an assistive device 5 Patient requires set up or clean up by helper. Patient completes activity by themselves 4 Supervision or touching assist (CGA). Mobile provide cues , steadying assist 3 The helper provides less than half the effort to complete the activity 2 The helper provides more than half the effort to complete the activity 1 Dependent. The helper does all the effort to complete an activity 7 Patient refused to complete or attempt activity 9 The patient did not perform the activity before the current illness or injury 88 Not attempted due to Medical conditions or safety concerns Transfers (B, C, W/C) (FIM): 3 Scootin Rollin Supine to/from Sit: 5 Sit to/from Stand: 4 Bed to/from Chair: 3 SPT min assist to the left and mod assist to the right. Cues for safety and hand placement, patient always tries to stand using the quad cane. Gait Training Gait (FIM): 1 Distance: 20'x4 Gait Level of Assist: 4 Gait Persons Needed: 1 Gait Assistive Device: Cane Large Base Quad selvin wrap for dorsiflexion assist on right side, cues for step placement, patient slightly impulsive, step to gait pattern Wheelchair Training Wheelchair (FIM): 5 Distance: 150'x2 Wheelchair Level of Assist: 5 Type of Wheelchair: Manual Treatments bed mobility and transfers, ambulation, wheelchair mobility Assessment Current Status: Fair Progress improving ambulation PT Short Term Goals Short Term Goals Time Frame: Feb 05, 2017 Transfers (B,C,W/C) (FIM): 4 Gait (FIM): 4 Distance (FIM): 3=150 ft Gait Assistive Device: Cane Large Base Quad Wheelchair Distance: 150'x2 Stairs (FIM): 2 # of Steps: 4 Stairs Level of Assist: 4 PT Bowl Turner Goals Intermediate Goals PT Intermediate Goals Time Frame: Feb 19, 2017 Transfers (B,C,W/C) (FIM): 6 Sit to Lying (QC): 6 Lying-Sitting on Side/Bed(QC): 6 Sit to Stand (QC): 6 Rollin Roll Left to Right (QC): 6 Chair/Uvg-ah-Ljsay Xfer(QC): 6 Car Transfer (QC): 6 Does the Patient Walk: Yes Gait (FIM): 5 (household) Gait distance (FIM): 2=095-20 ft Distance: 50 ft household Walk 10 feet (QC): 5 Walk 10ft-Uneven Surface(QC): 4 Walk 50ft with 2 Turns (QC): 5 Walk 150 ft (QC): 4 (asssit with this, CGA) Gait Assistive Device: Cane Large Base Quad Does the Pt use WC or Scooter?: Yes Wheelchair (FIM): 6 Wheelchair distance (FIM): 3=150 ft Wheel 50 feet with 2 turns (QC: 6 Stairs (FIM): 5 (household) # of Steps: 8 1 Step (curb) (QC): 5 4 Steps (QC): 5 12 Steps (QC): 5 Stairs Level Of Assist: 6 Picking up an Object (QC): 4 PT Plan Problem List Problem List: Activity Tolerance, Functional Strength, Safety, Balance, Gait, Transfer, Bed Mobility, ROM Treatment/Plan Treatment Plan: Continue Plan of Care Treatment Plan: Bed Mobility, Education, Functional Activity Delmy, Functional Strength, Group Therapy, Gait, Safety, Therapeutic Exercise, Transfers Treatment Duration: Feb 19, 2017 Visits Per Week: 10-*15 Minutes/Day (M-F): 60-90 Minutes/Day (Sat/Gonzalez): prn Safety Risks/Education Patient Education: Gait Training, Transfer Techniques, Correct Positioning, W/ C Management, Disease Process, Safety Issues Teaching Recipient: Patient Teaching Methods: Demonstration, Discussion Response to Teaching: Reinforcement Needed Time/GCodes Time In: 1300 Time Out: 1330 Total Billed Treatment Time: 30 Total Billed Treatment 1 visit GT 20 min [facility] 10 min BROOKE WORLEY PT Jan 24, 2017 13:33
[2017-01-24 18:28] VITALS: BP 169/72
--- NOTE | 2017-01-24 18:44 | PM & R (SOAP) Progress Note ---
Subjective Subjective/Events-last exam Patient was seen in his room this evening Progressing well with therapies Appreciate current labs and dr Zayas and therapy notes.Patient min to mod assist for transfers Review of Systems Neurological: : Weakness Objective Exam Last Set of Vital Signs Vital Signs Date Time Temp Pulse Resp B/P Pulse Ox O2 Delivery O2 Flow Rate FiO2 01/24/17 09:36 Room Air 01/24/17 04:18 96.9 62 18 149/79 97 Capillary Refill : I&O Intake and Output 01/24/17 00:00 Intake Total 1080 ml Output Total 1455 ml Balance -375 ml Intake Oral 1080 ml Output Urine Total 1455 ml # Bowel Movements 1 General: Alert, Oriented X3, Cooperative, No Acute Distress HEENT: Atraumatic, PERRLA, EOMI, Mucous Memb Moist/[place], Other (rt labila droop ) Neck: Supple, No JVD Lungs: Clear to Auscultation Heart: Regular Rate Abdomen: Normal Bowel Sounds, Soft, No Tenderness Extremities: No Edema Neuro: Other (rt HP and mild cognitive impairment and word finding difficulty) Results Lab Laboratory Tests 01/21/17 19:04: Glucometer 131H 01/22/17 06:27: Glucometer 155H 01/22/17 10:52: Glucometer 140H 01/22/17 16:10: Glucometer 128H 01/22/17 20:41: Glucometer 189H 01/23/17 05:45: Alanine Aminotransferase (ALT/SGPT) 55, Albumin 4.0, Alkaline Phosphatase 66, Anion Gap 11, Aspartate Amino Transf (AST/SGOT) 27, BUN/Creatinine Ratio 23, Blood Urea Nitrogen 36H, Calcium Level 9.0, Carbon Dioxide Level 24, Chloride Level 104, Cholesterol Level 190, Creatinine 1.56H, Estimat Glomerular Filtration Rate 45, Glucose Level 168H, HDL Cholesterol 30L, Hemoglobin A1c 7.9H , LDL Cholesterol Direct 143H, Potassium Level 4.1, Sodium Level 139, Total Bilirubin 1.1H, Total Protein 6.8, Triglycerides Level 118, VLDL Cholesterol 24 01/23/17 05:46: Glucometer 166H 01/23/17 10:55: Glucometer 157H 01/23/17 16:27: Glucometer 157H 01/23/17 20:10: Glucometer 146H 01/24/17 06:21: Glucometer 121H 01/24/17 10:40: Glucometer 128H 01/24/17 15:57: Glucometer 124H Assessment/Plan Assessment Left CVA with RT HP HTN controlled DM controlled Plan Continue PT/OT/ST Recheck Labs Team Conference 01/26/17 see orders DANIKA BRADLEY MD Jan 24, 2017 18:44
--- NOTE | 2017-01-24 19:04 | Individualized Plan of Care ---
Individualized Plan of Care Rehab Nursing IPOC Order Admission Date Jan 21, 2017 at 18:40 Current Orders Orders-DANIKA BRADLEY MD Patient Visit (01/24/17 ) Speech Sound Darius Pathak (01/24/17 ) Patient Visit (01/24/17 ) Gait Training, Ea 15 Min (01/24/17 ) Exercise Therap, Ea 15 Min (01/24/17 ) Wheelchair Mgmt/Propulsn 15min (01/24/17 ) Cbc With Automated Diff (01/25/17 06:00) PT IPOC Problem List: Activity Tolerance, Functional Strength, Safety, Balance, Gait, Transfer, Bed Mobility, ROM Treatment Plan: Continue Plan of Care Bed Mobility, Education, Functional Activity Delmy, Functional Strength, Group Therapy, Gait, Safety, Therapeutic Exercise, Transfers Treatment Duration: Feb 19, 2017 Visits Per Week: 10-*15 Minutes/Day (M-F): 60-90 Minutes/Day (Sat/Gonzalez): prn OT IPOC Problems: Decreased Activ Tolerance, Decreased Safety Aware, Decreased UE Strength, Dependent Transfers, Impaired Bed Mobility, Impaired Cognition, Impaired Coordination, Impaired Funct Balance, Impaired I ADL's, Impaired Self- Care Skills Plan of Care: ADL Retraining, Caregiver Training, Cognitive Retraining, Functional Mobility, Group Exercise/Act as Ind, UE Funct Exercise/Act Treatment Duration: Feb 12, 2017 Visits Per Week: 10-12 Minutes/Day (M-F): 60-90 Minutes/Day (Sat/Gonzalez): prn ST IPOC Speech Therapy Treatment Plan: Continue Plan of Care Treatment Duration: Feb 21, 2017 Visits Per Week: Four to five. Minutes/Day (M-F): 30-45 Physician IPOC Medical Issues being managed closely and that require the 24 hour availability of a physician:HTN and DM Medical Issues: Bowel/Bladder Function, DVT Prophylaxis, Falls Precautions, Fluid/Electrolyte/Nutrition Balance, Infection Protection, Other (List) (as per above) Brief Synthesis of Preadmission Screen, Post-Admission Evaluation, and Therapy Evaluations: 61 yo male with PMH significant for HTN and prior stroke without apparent residual who presented to [facility] ED with HTN out of control associate with new Left CVA with RT ICB with resulring RT HP Had been Independent prior to this and living with spouse in [place] 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 Medical Prognosis: good Anticipated Length of Stay: 02/21/17 Rehab Goals Modified Independent to supervision for adls and mobility skills with improved cognition.Good control of HTN and DM Continenec of Bowel and bladder Anticipated discharge destinat: Home with Spouse and [facility] DANIKA BRADLEY MD Jan 24, 2017 19:04
[2017-01-24] MEDS: ATORVASTATIN 40 MG (LIPITOR) TABLET PO SCH (21:20)
[2017-01-24] MEDS: inSUlin DETERMIR 1 UNIT/0.01 ML (LEVEMIR) CHARGE PER UNIT SQ SCH (21:21)
[2017-01-25 06:00] VITALS: BP 178/98
[2017-01-25] MEDS: inSUlin ASPART (NovoLOG) 1 UNIT/0.01 ML (CHARGE PER UNIT) SC SCH ×4 (06:00→21:00)
[2017-01-25] MEDS: hydrALAZINE (APRESOLINE) 25 MG TAB PO SCH ×3 (06:09→21:12)
[2017-01-25 06:18] LABS: BASOPHILS % (AUTO) 1 % (0-10); EOSINOPHILS # (AUTO) 0.2 10^3/uL (0.0-0.3); EOSINOPHILS % (AUTO) 2 % (0-10); LYMPHOCYTES # (AUTO) 1.9 X 10^3 (1.0-4.0); LYMPHOCYTES % (AUTO) 23 % (12-44); MEAN CORPUSCULAR HEMOGLOBIN 29 PG (25-34); MEAN CORPUSCULAR HGB CONC 35 G/DL (32-36); MEAN CORPUSCULAR VOLUME 84 FL (80-99); MEAN PLATELET VOLUME 9.4 FL (7.4-10.4); MONOCYTES # (AUTO) 0.7 X 10^3 (0.0-1.0); MONOCYTES % (AUTO) 9 % (0-12); NEUTROPHILS # (AUTO) 5.5 X 10^3 (1.8-7.8); NEUTROPHILS % (AUTO) 66 % (42-75); PLATELET COUNT 168 10^3/uL (130-400); RED BLOOD COUNT 5.56 10^6/uL (4.35-5.85); RED CELL DISTRIBUTION WIDTH 12.7 % (10.0-14.5); WHITE BLOOD COUNT 8.4 10^3/uL (4.3-11.0)
[2017-01-25 06:48] LABS: CALCIUM 9.1 MG/DL (8.5-10.1); CREATININE SERUM 1.28 MG/DL (0.60-1.30); POTASSIUM 4.1 MMOL/L (3.6-5.0)
--- NOTE | 2017-01-25 07:49 | Progress Note (SOAP) ---
Subjective Subjective/Events-last exam CVA. Hypertension. Patient voices no complaints. Patient moving right leg and right arm better. HCTZ added to patient's regimen Objective Exam Vital Signs Date Time Temp Pulse Resp B/P Pulse Ox O2 Delivery O2 Flow Rate FiO2 01/25/17 06:00 97.5 73 16 178/98 96 01/24/17 21:00 Room Air 01/24/17 18:28 97.4 75 14 169/72 96 01/24/17 09:36 Room Air I & O 01/25/17 07:00 Intake Total 1060 ml Output Total 700 ml Balance 360 ml Capillary Refill : General Appearance: No Apparent Distress WD/WN HEENT: Normal ENT Inspection Neck: Full Range of Motion Normal Inspection Respiratory: Chest Non Tender Lungs Clear Normal Breath Sounds No Accessory Muscle Use No Respiratory Distress Cardiovascular: Regular Rate, Rhythm No Murmur Gastrointestinal: non tender soft Results Lab Laboratory Tests 01/25/17 05:50 Laboratory Tests 01/24/17 10:40: Glucometer 128H 01/24/17 15:57: Glucometer 124H 01/24/17 20:30: Glucometer 124H 01/25/17 05:50: Anion Gap 12, BUN/Creatinine Ratio 23, Basophils # (Auto) 0.0, Basophils (%) ( Auto) 1, Blood Urea Nitrogen 29H, Calcium Level 9.1, Carbon Dioxide Level 19L, Chloride Level 108H, Creatinine 1.28, Eosinophils # (Auto) 0.2, Eosinophils (%) (Auto) 2, Estimat Glomerular Filtration Rate 57, Glucose Level 134H, Hematocrit 47, Hemoglobin 16.2, Lymphocytes # (Auto) 1.9, Lymphocytes (%) (Auto) 23, Mean Corpuscular Hemoglobin 29, Mean Corpuscular Hemoglobin Concent 35, Mean Corpuscular Volume 84, Mean Platelet Volume 9.4, Monocytes # (Auto) 0.7, Monocytes (%) (Auto) 9, Neutrophils # (Auto) 5.5, Neutrophils (%) (Auto) 66, Platelet Count 168, Potassium Level 4.1, Red Blood Count 5.56, Red Cell Distribution Width 12.7, Sodium Level 139, White Blood Count 8.4 01/25/17 06:11: Glucometer 124H Assessment/Plan Assessment/Plan Assess & Plan/Chief Complaint CVA on right. Hypertension. Diabetes. Patient when asked questions has a slow thought process. Patient unable to waste picker right hand. Patient does move his right leg. . 01/24/17. CVA on right. Hypertension. Diabetes. Patient is improving. Patient positive. . 01/25/17. CVA on right. Hypertension. HCTZ added. Patient moving right extremities better. Patient improving Diagnosis/Problems: Clinical Quality Measures DVT/VTE Risk/Contraindication: Risk Factor Score Per Nursin RFS Level Per Nursing on Admit: 4+=Very High BENJY SANTANA DO Jan 25, 2017 07:49
[2017-01-25 08:30] VITALS: BP 151/88
[2017-01-25] MEDS: ASPIRIN 325 MG (5 GR) TABLET PO SCH (08:32)
[2017-01-25] MEDS: amLODIPine 5 MG (NORVASC) TAB PO SCH (08:32)
[2017-01-25] MEDS: meTOprolol TARTRATE 25 MG (LOPRESSOR) TABLET PO SCH ×2 (08:32→21:13)
[2017-01-25] MEDS: HYDROCHLOROTHIAZIDE 25 MG (HCTZ) TAB PO SCH (08:37)
--- NOTE | 2017-01-25 09:00 | Physical Therapy Daily Note ---
PT Daily Note-Current Subjective Patient in bed pre tx, agrees to PT, needs to get dressed. Has no complaints of pain. Appearance Patient in wheelchair post tx to go back to his room by himself. Mental Status Patient Orientation: Normal For Age Transfers Functional [place] Measure 0=Not Assessed/NA 4=Minimal Assistance 1=Total Assistance 5=Supervision or Setup 2=Maximal Assistance 6=Modified [place] 3=Moderate Assistance 7=Complete IndependenceIRFPAI Quality Coding Scale 6 Independent with activity with or without an assistive device 5 Patient requires set up or clean up by helper. Patient completes activity by themselves 4 Supervision or touching assist (CGA). [place] provide cues , steadying assist 3 The helper provides less than half the effort to complete the activity 2 The helper provides more than half the effort to complete the activity 1 Dependent. The helper does all the effort to complete an activity 7 Patient refused to complete or attempt activity 9 The patient did not perform the activity before the current illness or injury 88 Not attempted due to Medical conditions or safety concerns Transfers (B, C, W/C) (FIM): 4 Scootin Rollin Supine to/from Sit: 5 Sit to/from Stand: 4 Bed to/from Chair: 4 stand pivot with CGA to the left and min assist to the right, cues for safety and hand placement Gait Training Gait (FIM): 2 Distance: 50'x3 Gait Level of Assist: 4 Gait Persons Needed: 1 Gait Assistive Device: Cane Large Base Quad [place] wrap right ankle, min assist for balance and cues for safety and foot placement. Wheelchair Training Wheelchair (FIM): 6 Distance: 150'x2 Type of Wheelchair: Manual Exercises Standing: Hip Abduction, Heel/toe raises Standing Reps: 20 toe touch on step with right leg x 20 NuStep Minutes: 10 NuStep Workload: 4 Treatments bed mobility and transfers, ambulation, functional strengthening, dressing Assessment Current Status: Fair Progress improved ambulation and endurance PT Short Term Goals Short Term Goals Time Frame: Feb 05, 2017 Transfers (B,C,W/C) (FIM): 4 Gait (FIM): 4 Distance (FIM): 3=150 ft Gait Assistive Device: Cane Large Base Quad Wheelchair Distance: 150'x2 Stairs (FIM): 2 # of Steps: 4 Stairs Level of Assist: 4 PT Microbiology Technician Goals Prison Goals PT Prison Goals Time Frame: Feb 19, 2017 Transfers (B,C,W/C) (FIM): 6 Sit to Lying (QC): 6 Lying-Sitting on Side/Bed(QC): 6 Sit to Stand (QC): 6 Rollin Roll Left to Right (QC): 6 Chair/Uyu-dl-Rzdci Xfer(QC): 6 Car Transfer (QC): 6 Does the Patient Walk: Yes Gait (FIM): 5 (household) Gait distance (FIM): 9=196-60 ft Distance: 50 ft household Walk 10 feet (QC): 5 Walk 10ft-Uneven Surface(QC): 4 Walk 50ft with 2 Turns (QC): 5 Walk 150 ft (QC): 4 (asssit with this, CGA) Gait Assistive Device: Cane Large Base Quad Does the Pt use WC or Scooter?: Yes Wheelchair (FIM): 6 Wheelchair distance (FIM): 3=150 ft Wheel 50 feet with 2 turns (QC: 6 Stairs (FIM): 5 (household) # of Steps: 8 1 Step (curb) (QC): 5 4 Steps (QC): 5 12 Steps (QC): 5 Stairs Level Of Assist: 6 Picking up an Object (QC): 4 PT Plan Problem List Problem List: Activity Tolerance, Functional Strength, Safety, Balance, Gait, Transfer, Bed Mobility Treatment/Plan Treatment Plan: Continue Plan of Care Treatment Plan: Bed Mobility, Education, Functional Activity Delmy, Functional Strength, Group Therapy, Gait, Safety, Therapeutic Exercise, Transfers Treatment Duration: Feb 19, 2017 Visits Per Week: 10-*15 Minutes/Day (M-F): 60-90 Minutes/Day (Sat/Gonzalez): prn Safety Risks/Education Patient Education: Gait Training, Transfer Techniques, Correct Positioning, W/ C Management, Safety Issues Teaching Recipient: Patient Teaching Methods: Demonstration, Discussion Response to Teaching: Reinforcement Needed Time/GCodes Time In: 800 Time Out: 900 Total Billed Treatment Time: 60 Total Billed Treatment 1 visit GT 30 min EX 30 min BROOKE WORLEY PT Jan 25, 2017 09:00
--- NOTE | 2017-01-25 09:59 | PM & R (SOAP) Progress Note ---
Subjective Subjective/Events-last exam Patient was seen in his room this AM Patient min assist for transfers Systolic Blood pressure elevated DR Peck addressed Appreciate his note and orders repeat labs ordered Objective Exam Last Set of Vital Signs Vital Signs Date Time Temp Pulse Resp B/P Pulse Ox O2 Delivery O2 Flow Rate FiO2 01/25/17 06:00 97.5 73 16 178/98 96 01/24/17 21:00 Room Air Capillary Refill : I&O Intake and Output 01/25/17 00:00 Intake Total 970 ml Output Total 600 ml Balance 370 ml Intake Oral 970 ml Output Urine Total 600 ml # Urine Diapers 1 # Bowel Movements 1 General: Alert, Oriented X3, Cooperative, No Acute Distress HEENT: Atraumatic, PERRLA, EOMI, Mucous Memb Moist/[place], Other (rt labila droop ) Neck: Supple, No JVD Lungs: Clear to Auscultation Heart: Regular Rate Abdomen: Normal Bowel Sounds, Soft, No Tenderness Extremities: No Edema Neuro: Other (rt HP and mild cognitive impairment and word finding difficulty) Results Lab Laboratory Tests 01/22/17 10:52: Glucometer 140H 01/22/17 16:10: Glucometer 128H 01/22/17 20:41: Glucometer 189H 01/23/17 05:45: Alanine Aminotransferase (ALT/SGPT) 55, Albumin 4.0, Alkaline Phosphatase 66, Anion Gap 11, Aspartate Amino Transf (AST/SGOT) 27, BUN/Creatinine Ratio 23, Blood Urea Nitrogen 36H, Calcium Level 9.0, Carbon Dioxide Level 24, Chloride Level 104, Cholesterol Level 190, Creatinine 1.56H, Estimat Glomerular Filtration Rate 45, Glucose Level 168H, HDL Cholesterol 30L, Hemoglobin A1c 7.9H , LDL Cholesterol Direct 143H, Potassium Level 4.1, Sodium Level 139, Total Bilirubin 1.1H, Total Protein 6.8, Triglycerides Level 118, VLDL Cholesterol 24 01/23/17 05:46: Glucometer 166H 01/23/17 10:55: Glucometer 157H 01/23/17 16:27: Glucometer 157H 01/23/17 20:10: Glucometer 146H 01/24/17 06:21: Glucometer 121H 01/24/17 10:40: Glucometer 128H 01/24/17 15:57: Glucometer 124H 01/24/17 20:30: Glucometer 124H 01/25/17 05:50: Anion Gap 12, BUN/Creatinine Ratio 23, Basophils # (Auto) 0.0, Basophils (%) ( Auto) 1, Blood Urea Nitrogen 29H, Calcium Level 9.1, Carbon Dioxide Level 19L, Chloride Level 108H, Creatinine 1.28, Eosinophils # (Auto) 0.2, Eosinophils (%) (Auto) 2, Estimat Glomerular Filtration Rate 57, Glucose Level 134H, Hematocrit 47, Hemoglobin 16.2, Lymphocytes # (Auto) 1.9, Lymphocytes (%) (Auto) 23, Mean Corpuscular Hemoglobin 29, Mean Corpuscular Hemoglobin Concent 35, Mean Corpuscular Volume 84, Mean Platelet Volume 9.4, Monocytes # (Auto) 0.7, Monocytes (%) (Auto) 9, Neutrophils # (Auto) 5.5, Neutrophils (%) (Auto) 66, Platelet Count 168, Potassium Level 4.1, Red Blood Count 5.56, Red Cell Distribution Width 12.7, Sodium Level 139, White Blood Count 8.4 01/25/17 06:11: Glucometer 124H Assessment/Plan Assessment Left CVA with RT HP HTN poorly controlled DM controlled Plan Continue PT/OT/ST Recheck Labs Team Conference tomorrow 01/26/17 HTN meds adjusted see orders DANIKA BRADLEY MD Jan 25, 2017 09:59
--- NOTE | 2017-01-25 11:35 | Speech Therapy Daily Note ---
Speech Daily Progress Note Subjective The patient was sitting upright in wheelchair upon entrance. The patient greeted the clinician and agreed to participate in the speech and language session on this date. Objective Word-Finding Strategies: Word-finding strategies were discussed with the patient , as well as, demonstrated by the clinician. The strategies included description , writing, drawing, association, resting, synonyms, phonemic cues, practicing functional phrases, and gestures. Word-Finding Strategy (Synonym): The patient was asked to provide synonyms for a specific word provided by the clinician. The patient demonstrated fair accuracy with this task, requiring maximum clinician cueing for completion ( approximately 40% accuracy). Assessment Assessment Current Status: Fair Progress Treatment Plan Continue Plan of Care Communication Comprehension: 4 Expression: 4 Social Cognition Social Interaction: 4 Problem Solvin Memory: 4 Speech Short Term Goals Short Term Goals Short Term Goals 1. The patient will demonstrated 80% accuracy throughout structured word- finding tasks, independently. 2. The patient will recall and demonstrate two functional memory strategies for use at home, independently. Time Frame-STG: Two Weeks Speech Penitentiary Goals Penitentiary Goals 1. The patient will demonstrated improved expressive communication and cognitive skills for increased function and safety with ADL's. Time Frame: Four Weeks Speech-Plan Treatment Plan Speech Therapy Treatment Plan: Continue Plan of Care Continued skilled speech therapy to target word-finding through expressive communication. Treatment Duration: Feb 21, 2017 # of days/week Four to five. Visits Per Week: Four to five. Minutes/Day (M-F): 30-45 Rehab Potential: Good Safety Risks/Education Teaching Recipient: Patient Teaching Methods: Demonstration, Handout, Discussion Response to Teaching: Verbalize Understanding, Return Demonstration Education Topics Provided: Word-finding strategies Time Speech Therapy Time In: 09:15 Speech Therapy Time Out: 09:45 Total Billed Time: 30 Billed Treatment Time 1NATYJIN BRAVOYKHADIJAHFRANCOIS Jan 25, 2017 11:35
--- NOTE | 2017-01-25 12:29 | Occupational Ther Daily Note ---
OT Current Status-Daily Note Subjective Pt alert, sitting in w/c. Pt agreed to therapy. No c/o pain only fatigue. Mental Status/Objective Patient Orientation: Person, Place, Time, Situation Functional [place] Measure 0=Not Assessed/NA 4=Minimal Assistance 1=Total Assistance 5=Supervision or Setup 2=Maximal Assistance 6=Modified [place] 3=Moderate Assistance 7=Complete [place] ADL-Treatment Functional [place] Measure 0=Not Assessed/NA 4=Minimal Assistance 1=Total Assistance 5=Supervision or Setup 2=Maximal Assistance 6=Modified [place] 3=Moderate Assistance 7=Complete IndependenceIRFPAI Quality Coding Scale 6 Independent with activity with or without an assistive device 5 Patient requires set up or clean up by helper. Patient completes activity by themselves 4 Supervision or touching assist (CGA). [place] provide cues , steadying assist 3 The helper provides less than half the effort to complete the activity 2 The helper provides more than half the effort to complete the activity 1 Dependent. The helper does all the effort to complete an activity 7 Patient refused to complete or attempt activity 9 The patient did not perform the activity before the current illness or injury 88 Not attempted due to Medical conditions or safety concerns Other Treatment Pt transported to therapy gym via w/c. Pt transferred with mod A from w/c to therapy mat. PROM to R shldr then APROM to R shldr. Pt was able to demonstrate trace movements for shldr retraction and elevation in supine. Pt then was able to go from supine to sitting with min A. Pt worked on AAROM with shldr internal/external rotation while on arm skate board. Then AAROM for shldr stretching by sliding B UE over smooth surface while leaning forward and pulling backward. Pt did demonstrate active movement 3x's in bicep flexion. Wt bearing exercises while sitting on edge of mat with assist to stabilize R elbow. Pt then maneuvered w/c 100 ft by self with L UE/LE. After therapy, pt lying in bed with nrsg present in room. All needs met in room. OT Short Term Goals Short Term Goals Time Frame: Jan 29, 2017 Eating(FIM): 5 Grooming(FIM): 5 Bathing(FIM): 4 Upper Body Dressing(FIM): 4 Lower Body Dressing(FIM): 4 Toileting(FIM): 4 Transfers (B,C,W/C) (FIM): 4 Toilet/Commode Transfer(FIM): 4 Shower Transfer(FIM): 4 Additional Short Term Goals: 1-Demonstrate ADL Tasks, 2-Verbalize Understanding , 3-ImproveStrength/Delmy 1=Demonstrate adherence to instructed precautions during ADL tasks. 2=Patient will verbalize/demonstrate understanding of assistive devices/ modifications for ADL. 3=Patient will improve strength/tolerance for activity to enable patient to perform ADL's. OT Skilled Nursing Goals Skilled Nursing Goals Time Frame: Feb 12, 2017 Eating (FIM): 6 Eating (QC): 6 Groomin Oral Hygiene (QC): 6 Bathing(FIM): 5 Shower/Bathe Self (QC): 5 Upper Body Dressing(FIM): 6 Upper Body Dressing (QC): 6 Lower Body Dressing(FIM): 6 Lower Body Dressing (QC): 6 On/Off Footwear (QC): 6 Toileting(FIM): 6 Toileting Hygiene (QC): 6 Transfers (B,C,W/C) (FIM): 6 Toilet/Commode Transfer(FIM): 6 Toilet/Commode Transfer (QC): 6 Shower Transfer(FIM): 6 Additional Goals: 1-Demonstrate ADL Tasks, 2-Verbalize Understanding, 3- ImproveStrength/Delmy 1=Demonstrate adherence to instructed precautions during ADL tasks. 2=Patient will verbalize/demonstrate understanding of assistive devices/ modifications for ADL. 3=Patient will improve strength/tolerance for activity to enable patient to perform ADL's. OT Education/Plan Discharge Recommendations Plan/Recommendations: Continue POC Treatment Plan/Plan of Care Patient would benefit from OT for education, treatment and training to promote independence in ADL's, mobility, safety and/or upper extremity function for ADL' s. Plan of Care: ADL Retraining, Caregiver Training, Cognitive Retraining, Functional Mobility, Group Exercise/Act as Ind, UE Funct Exercise/Act Treatment Duration: Feb 12, 2017 Visits Per Week: 10-12 Minutes/Day (M-F): 60-90 Minutes/Day (Sat/Gonzalez): prn Agreement: Yes Rehab Potential: Good Time/GCodes Start Time: 11:00 Stop Time: 11:45 Total Time Billed (hr/min): 45 Billed Treatment Time 1 visit-FA 3 (45 min) CHULA NGUYỄN Jan 25, 2017 12:28
--- NOTE | 2017-01-25 13:08 | Occupational Ther Daily Note ---
OT Current Status-Daily Note Subjective Pt alert, lying in bed. Pt stated that he is tired. Agreed to therapy. No c/ o pain. Mental Status/Objective Patient Orientation: Person, Place, Time, Situation Functional [place] Measure 0=Not Assessed/NA 4=Minimal Assistance 1=Total Assistance 5=Supervision or Setup 2=Maximal Assistance 6=Modified [place] 3=Moderate Assistance 7=Complete [place] ADL-Treatment Min A going from supine to sitting EOB. Mod A for transfer from bed to w/c then w/c to shower bench using grabbars. Pt able to bathe upper body and lower body sitting on bench then mod A in standing while pt cleansed buttocks/marta area. Pt able to dry self with min A. Mod A for dressing upper/lower body with one handed technique. After therapy, pt lying in bed with call light/ phone in reach. All needs met in room. Functional [place] Measure 0=Not Assessed/NA 4=Minimal Assistance 1=Total Assistance 5=Supervision or Setup 2=Maximal Assistance 6=Modified [place] 3=Moderate Assistance 7=Complete IndependenceIRFPAI Quality Coding Scale 6 Independent with activity with or without an assistive device 5 Patient requires set up or clean up by helper. Patient completes activity by themselves 4 Supervision or touching assist (CGA). [place] provide cues , steadying assist 3 The helper provides less than half the effort to complete the activity 2 The helper provides more than half the effort to complete the activity 1 Dependent. The helper does all the effort to complete an activity 7 Patient refused to complete or attempt activity 9 The patient did not perform the activity before the current illness or injury 88 Not attempted due to Medical conditions or safety concerns Bathing (FIM): 3 Upper Body (FIM): 3 Lower Body Dressing (FIM): 3 Shower Transfer(FIM): 3 OT Short Term Goals Short Term Goals Time Frame: Jan 29, 2017 Eating(FIM): 5 Grooming(FIM): 5 Bathing(FIM): 4 Upper Body Dressing(FIM): 4 Lower Body Dressing(FIM): 4 Toileting(FIM): 4 Transfers (B,C,W/C) (FIM): 4 Toilet/Commode Transfer(FIM): 4 Shower Transfer(FIM): 4 Additional Short Term Goals: 1-Demonstrate ADL Tasks, 2-Verbalize Understanding , 3-ImproveStrength/Delmy 1=Demonstrate adherence to instructed precautions during ADL tasks. 2=Patient will verbalize/demonstrate understanding of assistive devices/ modifications for ADL. 3=Patient will improve strength/tolerance for activity to enable patient to perform ADL's. OT Group Home Goals Check Scaler Goals Time Frame: Feb 12, 2017 Eating (FIM): 6 Eating (QC): 6 Groomin Oral Hygiene (QC): 6 Bathing(FIM): 5 Shower/Bathe Self (QC): 5 Upper Body Dressing(FIM): 6 Upper Body Dressing (QC): 6 Lower Body Dressing(FIM): 6 Lower Body Dressing (QC): 6 On/Off Footwear (QC): 6 Toileting(FIM): 6 Toileting Hygiene (QC): 6 Transfers (B,C,W/C) (FIM): 6 Toilet/Commode Transfer(FIM): 6 Toilet/Commode Transfer (QC): 6 Shower Transfer(FIM): 6 Additional Goals: 1-Demonstrate ADL Tasks, 2-Verbalize Understanding, 3- ImproveStrength/Delmy 1=Demonstrate adherence to instructed precautions during ADL tasks. 2=Patient will verbalize/demonstrate understanding of assistive devices/ modifications for ADL. 3=Patient will improve strength/tolerance for activity to enable patient to perform ADL's. OT Education/Plan Discharge Recommendations Plan/Recommendations: Continue POC Treatment Plan/Plan of Care Patient would benefit from OT for education, treatment and training to promote independence in ADL's, mobility, safety and/or upper extremity function for ADL' s. Plan of Care: ADL Retraining, Caregiver Training, Cognitive Retraining, Functional Mobility, Group Exercise/Act as Ind, UE Funct Exercise/Act Treatment Duration: Feb 12, 2017 Visits Per Week: 10-12 Minutes/Day (M-F): 60-90 Minutes/Day (Sat/Gonzalez): prn Agreement: Yes Rehab Potential: Good Time/GCodes Start Time: 12:30 Stop Time: 13:15 Total Time Billed (hr/min): 45 Billed Treatment Time 1 visit-ADL 3 (45 min) CHULA NGUYỄN Jan 25, 2017 13:08
--- NOTE | 2017-01-25 13:47 | Physical Therapy Daily Note ---
PT Daily Note-Current Subjective Patient in bed pre tx, agrees to PT, no complaints of pain but he states he is very tired. Appearance Patient in bed post tx, has nurse call, phone, tray, bed alarm on. Mental Status Patient Orientation: Person, Place, Situation Transfers Functional [place] Measure 0=Not Assessed/NA 4=Minimal Assistance 1=Total Assistance 5=Supervision or Setup 2=Maximal Assistance 6=Modified [place] 3=Moderate Assistance 7=Complete IndependenceIRFPAI Quality Coding Scale 6 Independent with activity with or without an assistive device 5 Patient requires set up or clean up by helper. Patient completes activity by themselves 4 Supervision or touching assist (CGA). [place] provide cues , steadying assist 3 The helper provides less than half the effort to complete the activity 2 The helper provides more than half the effort to complete the activity 1 Dependent. The helper does all the effort to complete an activity 7 Patient refused to complete or attempt activity 9 The patient did not perform the activity before the current illness or injury 88 Not attempted due to Medical conditions or safety concerns Transfers (B, C, W/C) (FIM): 4 Scootin Rollin Supine to/from Sit: 5 Sit to/from Stand: 4 Bed to/from Chair: 4 Patient can now perform a stand pivot transfer with min/CGA to both sides. Wheelchair Training Wheelchair (FIM): 6 Distance: 150'x2 Type of Wheelchair: Manual Exercises 3 sets of manually resisted leg press on the right side, PROM to right leg in all planes, SAQ right side for 5 min Treatments bed mobility and transfer training, functional strengthening, ROM/stretching, wheelchair mobility Assessment Current Status: Fair Progress improved transfers PT Short Term Goals Short Term Goals Time Frame: Feb 05, 2017 Transfers (B,C,W/C) (FIM): 4 Gait (FIM): 4 Distance (FIM): 3=150 ft Gait Assistive Device: Cane Large Base Quad Wheelchair Distance: 150'x2 Stairs (FIM): 2 # of Steps: 4 Stairs Level of Assist: 4 PT Cigar Maker Goals Cigar Maker Goals PT Assisted Goals Time Frame: Feb 19, 2017 Transfers (B,C,W/C) (FIM): 6 Sit to Lying (QC): 6 Lying-Sitting on Side/Bed(QC): 6 Sit to Stand (QC): 6 Rollin Roll Left to Right (QC): 6 Chair/Vrx-ai-Zuymi Xfer(QC): 6 Car Transfer (QC): 6 Does the Patient Walk: Yes Gait (FIM): 5 (household) Gait distance (FIM): 3=436-39 ft Distance: 50 ft household Walk 10 feet (QC): 5 Walk 10ft-Uneven Surface(QC): 4 Walk 50ft with 2 Turns (QC): 5 Walk 150 ft (QC): 4 (asssit with this, CGA) Gait Assistive Device: Cane Large Base Quad Does the Pt use WC or Scooter?: Yes Wheelchair (FIM): 6 Wheelchair distance (FIM): 3=150 ft Wheel 50 feet with 2 turns (QC: 6 Stairs (FIM): 5 (household) # of Steps: 8 1 Step (curb) (QC): 5 4 Steps (QC): 5 12 Steps (QC): 5 Stairs Level Of Assist: 6 Picking up an Object (QC): 4 PT Plan Problem List Problem List: Activity Tolerance, Functional Strength, Safety, Balance, Gait, Transfer, Bed Mobility, ROM Treatment/Plan Treatment Plan: Continue Plan of Care Treatment Plan: Bed Mobility, Education, Functional Activity Delmy, Functional Strength, Group Therapy, Gait, Safety, Therapeutic Exercise, Transfers Treatment Duration: Feb 19, 2017 Visits Per Week: 10-*15 Minutes/Day (M-F): 60-90 Minutes/Day (Sat/Gonzalez): prn Safety Risks/Education Patient Education: Transfer Techniques, Correct Positioning, W/C Management, Safety Issues Teaching Recipient: Patient Teaching Methods: Demonstration, Discussion Response to Teaching: Reinforcement Needed Time/GCodes Time In: 1315 Time Out: 1345 Total Billed Treatment Time: 30 Total Billed Treatment 1 visit EX 30 min BROOKE WORLEY PT Jan 25, 2017 13:47
[2017-01-25 17:42] LABS: BILIRUBIN,URINE NEGATIVE (NEGATIVE); KETONES,URINE NEGATIVE (NEGATIVE); LEUKOCYTE ESTERASE ,URINE NEGATIVE (NEGATIVE); NITRITE,URINE NEGATIVE (NEGATIVE); PH,URINE 5 (5-9); PROTEIN,URINE 1+ (NEGATIVE); UROBILINOGEN,URINE NORMAL (NORMAL)
[2017-01-25 18:21] VITALS: BP 171/80
[2017-01-25] MEDS: inSUlin DETERMIR 1 UNIT/0.01 ML (LEVEMIR) CHARGE PER UNIT SQ SCH (21:12)
[2017-01-25] MEDS: ATORVASTATIN 40 MG (LIPITOR) TABLET PO SCH (21:13)
[2017-01-26] MEDS: hydrALAZINE (APRESOLINE) 25 MG TAB PO SCH ×3 (05:59→21:04)
[2017-01-26 06:00] VITALS: BP 150/78
[2017-01-26] MEDS: inSUlin ASPART (NovoLOG) 1 UNIT/0.01 ML (CHARGE PER UNIT) SC SCH ×4 (06:00→20:58)
[2017-01-26] MEDS: amLODIPine 5 MG (NORVASC) TAB PO SCH (08:07)
[2017-01-26] MEDS: ASPIRIN 325 MG (5 GR) TABLET PO SCH (08:07)
[2017-01-26] MEDS: meTOprolol TARTRATE 25 MG (LOPRESSOR) TABLET PO SCH ×2 (08:07→21:04)
[2017-01-26] MEDS: HYDROCHLOROTHIAZIDE 25 MG (HCTZ) TAB PO SCH (08:07)
--- NOTE | 2017-01-26 08:38 | Progress Note (SOAP) ---
Subjective Subjective/Events-last exam CVA on right. Hypertension. Diabetes. Patient is improving. Patient able to do more. Patient moving right leg better. Patient is moving the right arm. Patient not moving his hand Objective Exam Vital Signs Date Time Temp Pulse Resp B/P Pulse Ox O2 Delivery O2 Flow Rate FiO2 01/26/17 06:00 98.8 65 22 150/78 96 Room Air 01/25/17 20:55 Room Air 01/25/17 18:21 96.6 72 14 171/80 97 Room Air I & O 01/26/17 07:00 Intake Total 1640 ml Output Total 150 ml Balance 1490 ml Capillary Refill : General Appearance: No Apparent Distress WD/WN HEENT: Normal ENT Inspection Neck: Full Range of Motion Normal Inspection Respiratory: Chest Non Tender Lungs Clear Normal Breath Sounds No Accessory Muscle Use No Respiratory Distress Cardiovascular: Regular Rate, Rhythm Normal Peripheral Pulses Results Lab Laboratory Tests 01/25/17 11:01: Glucometer 180H 01/25/17 15:58: Glucometer 129H 01/25/17 17:30: Urine Bacteria NEGATIVE, Urine Bilirubin NEGATIVE, Urine Casts NONE, Urine Clarity CLEAR, Urine Color YELLOW, Urine Crystals NONE, Urine Culture Indicated NO, Urine Glucose (UA) NEGATIVE, Urine Ketones NEGATIVE, Urine Leukocyte Esterase NEGATIVE, Urine Mucus NEGATIVE, Urine Nitrite NEGATIVE, Urine Protein 1 +H, Urine RBC NONE, Urine RBC (Auto) NEGATIVE, Urine Specific [place] 1.020, Urine Urobilinogen NORMAL, Urine WBC NONE, Urine pH 5 01/25/17 20:29: Glucometer 155H 01/26/17 05:29: Glucometer 129H Assessment/Plan Assessment/Plan Assess & Plan/Chief Complaint CVA on right. Hypertension. Diabetes. Patient when asked questions has a slow thought process. 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 Patient does move his right leg. . 01/24/17. CVA on right. Hypertension. Diabetes. Patient is improving. Patient positive. . 01/25/17. CVA on right. Hypertension. HCTZ added. Patient moving right extremities better. Patient improving. . 01/26/17 CVA Hypertension Patient moving left extremities better. Patient improving. Blood pressure better today than yesterday Diagnosis/Problems: Clinical Quality Measures DVT/VTE Risk/Contraindication: Risk Factor Score Per Nursin RFS Level Per Nursing on Admit: 4+=Very High BENJY SANTANA DO Jan 26, 2017 08:38
--- NOTE | 2017-01-26 09:24 | Occupational Ther Daily Note ---
OT Current Status-Daily Note Subjective Pt in bed, agrees to treatment. Pt has no c/o pain. Mental Status/Objective Functional [place] Measure 0=Not Assessed/NA 4=Minimal Assistance 1=Total Assistance 5=Supervision or Setup 2=Maximal Assistance 6=Modified [place] 3=Moderate Assistance 7=Complete [place] ADL-Treatment Pt supine to sit with minimal assistance. Pt declined bathing today. Doff shirt with SBA. Pt donned pullover shirt with minimal assistance and skilled cues for technique. Pt required moderate assistance to don pants. Stood with minimal assistance for pant hike. Pt doffed socks with SBA and increased time. Pt has difficulty donning socks. Attempted use of sock aid, pt able to don socks with moderate assistance using adaptive equipment. Pt requires increased time for dressing tasks. Functional [place] Measure 0=Not Assessed/NA 4=Minimal Assistance 1=Total Assistance 5=Supervision or Setup 2=Maximal Assistance 6=Modified [place] 3=Moderate Assistance 7=Complete IndependenceIRFPAI Quality Coding Scale 6 Independent with activity with or without an assistive device 5 Patient requires set up or clean up by helper. Patient completes activity by themselves 4 Supervision or touching assist (CGA). [place] provide cues , steadying assist 3 The helper provides less than half the effort to complete the activity 2 The helper provides more than half the effort to complete the activity 1 Dependent. The helper does all the effort to complete an activity 7 Patient refused to complete or attempt activity 9 The patient did not perform the activity before the current illness or injury 88 Not attempted due to Medical conditions or safety concerns Upper Body (FIM): 4 Upper Body Dressing (QC): 3 Lower Body Dressing (FIM): 3 Lower Body Dressing (QC): 3 On/Off Footwear (QC): 3 Other Treatment Weight bearing activity completed through right UE while seated EOB. Assist required to stabilize elbow joint and maintain proper posture. Pt completed right UE shoulder exercises in supine. Pt demonstrates trace active shoulder elevation and retraction. Also demonstrates minimal shoulder abduction. PROM completed right UE at all joints while seated EOB. Pt demonstrates trace active elbow flexion. No active forearm, wrist, or finger movement noted. Sit to stand and transfer to w/c with minimal assistance. Pt performed w/c mobility to therapy gym using left UE/LE. Requires occasional cues to avoid objects on right side. Attempted to complete AAROM for right shoulder using arm skate, but unable at this time to secondary to fatigue. Pt returned to room, transferred to chair with minimal assistance. Pt sitting in chair with needs met after session. OT Short Term Goals Short Term Goals Time Frame: Jan 29, 2017 Eating(FIM): 5 Grooming(FIM): 5 Bathing(FIM): 4 Upper Body Dressing(FIM): 4 Lower Body Dressing(FIM): 4 Toileting(FIM): 4 Transfers (B,C,W/C) (FIM): 4 Toilet/Commode Transfer(FIM): 4 Shower Transfer(FIM): 4 Additional Short Term Goals: 1-Demonstrate ADL Tasks, 2-Verbalize Understanding , 3-ImproveStrength/Delmy 1=Demonstrate adherence to instructed precautions during ADL tasks. 2=Patient will verbalize/demonstrate understanding of assistive devices/ modifications for ADL. 3=Patient will improve strength/tolerance for activity to enable patient to perform ADL's. OT Rodding Anode Worker Goals Prison Goals Time Frame: Feb 12, 2017 Eating (FIM): 6 Eating (QC): 6 Groomin Oral Hygiene (QC): 6 Bathing(FIM): 5 Shower/Bathe Self (QC): 5 Upper Body Dressing(FIM): 6 Upper Body Dressing (QC): 6 Lower Body Dressing(FIM): 6 Lower Body Dressing (QC): 6 On/Off Footwear (QC): 6 Toileting(FIM): 6 Toileting Hygiene (QC): 6 Transfers (B,C,W/C) (FIM): 6 Toilet/Commode Transfer(FIM): 6 Toilet/Commode Transfer (QC): 6 Shower Transfer(FIM): 6 Additional Goals: 1-Demonstrate ADL Tasks, 2-Verbalize Understanding, 3- ImproveStrength/Delmy 1=Demonstrate adherence to instructed precautions during ADL tasks. 2=Patient will verbalize/demonstrate understanding of assistive devices/ modifications for ADL. 3=Patient will improve strength/tolerance for activity to enable patient to perform ADL's. OT Education/Plan Discharge Recommendations Plan/Recommendations: Continue POC Treatment Plan/Plan of Care Patient would benefit from OT for education, treatment and training to promote independence in ADL's, mobility, safety and/or upper extremity function for ADL' s. Plan of Care: ADL Retraining, Caregiver Training, Cognitive Retraining, Functional Mobility, Group Exercise/Act as Ind, UE Funct Exercise/Act Treatment Duration: Feb 12, 2017 Visits Per Week: 10-12 Minutes/Day (M-F): 60-90 Minutes/Day (Sat/Gonzalez): prn Agreement: Yes Rehab Potential: Good Time/GCodes Start Time: 08:00 Stop Time: 09:00 Total Time Billed (hr/min): 60 Billed Treatment Time 1 visit, ADLx2(30minutes), NMx2(30minutes) JOSSIE GALVEZ OT Jan 26, 2017 09:24
--- NOTE | 2017-01-26 10:56 | Speech Therapy Daily Note ---
Speech Daily Progress Note Subjective The patient was seated upright in recliner upon entrance. The patient greeted the clinician appropriately and agreed to participate in the speech and language treatment session on this date. Objective Word-Finding Strategy (Synonym): The patient was asked to provide synonyms and antonyms for a specific word provided by the clinician. The patient demonstrated fair accuracy with this task, requiring moderate clinician cueing for completion (approximately 40% accuracy with synonyms and 70% accuracy with antonyms). Assessment Assessment Current Status: Fair Progress Treatment Plan Continue Plan of Care Communication Comprehension: 5 Expression: 4 Social Cognition Social Interaction: 5 Problem Solvin Memory: 4 Speech Short Term Goals Short Term Goals Short Term Goals 1. The patient will demonstrated 80% accuracy throughout structured word- finding tasks, independently. 2. The patient will recall and demonstrate two functional memory strategies for use at home, independently. Time Frame-STG: Two Weeks Speech Prison Goals Prison Goals 1. The patient will demonstrated improved expressive communication and cognitive skills for increased function and safety with ADL's. Time Frame: Four Weeks Speech-Plan Treatment Plan Speech Therapy Treatment Plan: Continue Plan of Care Continue skilled speech services to target improved word-finding abilities. Treatment Duration: Feb 21, 2017 # of days/week Four to five. Visits Per Week: Four to five. Minutes/Day (M-F): 30-45 Rehab Potential: Good Safety Risks/Education Teaching Recipient: Patient Teaching Methods: Demonstration, Discussion Response to Teaching: Verbalize Understanding, Return Demonstration, Reinforcement Needed Education Topics Provided: Word-Finding Strategies Time Speech Therapy Time In: 09:15 Speech Therapy Time Out: 09:45 Total Billed Time: 30 Billed Treatment Time 1, FRANCOIS LEWIS Jan 26, 2017 10:56
--- NOTE | 2017-01-26 11:03 | Physical Therapy Daily Note ---
PT Daily Note-Current Subjective Patient in recliner pre tx, agrees to PT, no complaints of pain. Appearance Patient on toilet post tx with nurse call. Mental Status Patient Orientation: Person, Place, Situation Transfers Functional [place] Measure 0=Not Assessed/NA 4=Minimal Assistance 1=Total Assistance 5=Supervision or Setup 2=Maximal Assistance 6=Modified [place] 3=Moderate Assistance 7=Complete IndependenceIRFPAI Quality Coding Scale 6 Independent with activity with or without an assistive device 5 Patient requires set up or clean up by helper. Patient completes activity by themselves 4 Supervision or touching assist (CGA). [place] provide cues , steadying assist 3 The helper provides less than half the effort to complete the activity 2 The helper provides more than half the effort to complete the activity 1 Dependent. The helper does all the effort to complete an activity 7 Patient refused to complete or attempt activity 9 The patient did not perform the activity before the current illness or injury 88 Not attempted due to Medical conditions or safety concerns Transfers (B, C, W/C) (FIM): 4 Sit to/from Stand: 4 Bed to/from Chair: 4 Cues for safety and hand placement, stand pivot min assist to the right and CGA to the left. Gait Training Gait (FIM): 2 Distance: 50'x2 Gait Level of Assist: 4 Gait Persons Needed: 1 Gait Assistive Device: Cane Large Base Quad A heel lift was fashioned for his right foot to try to limit his knee hyperextension but it didn't really seem to make much of a difference. Will recommend a custom fit AFO for patient upon discharge. [place] wrap left foot to assist with dorsiflexion and toe clearance. Min assist for balance. Wheelchair Training Wheelchair (FIM): 5 Distance: 150'x2 Type of Wheelchair: Manual occasional cues for obstacles on the right Exercises NuStep Minutes: 15 NuStep Workload: 4 Treatments wheelchair mobility, transfers, ambulation, functional strengthening Assessment Current Status: Fair Progress improving gait and endurance PT Short Term Goals Short Term Goals Time Frame: Feb 05, 2017 Transfers (B,C,W/C) (FIM): 4 Gait (FIM): 4 Distance (FIM): 3=150 ft Gait Assistive Device: Cane Large Base Quad Wheelchair Distance: 150' Stairs (FIM): 2 # of Steps: 4 Stairs Level of Assist: 4 PT Penitentiary Goals Penitentiary Goals PT 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 Truck Driver Goals Time Frame: Feb 19, 2017 Transfers (B,C,W/C) (FIM): 6 Sit to Lying (QC): 6 Lying-Sitting on Side/Bed(QC): 6 Sit to Stand (QC): 6 Rollin Roll Left to Right (QC): 6 Chair/Obz-lt-Ezdwp Xfer(QC): 6 Car Transfer (QC): 6 Does the Patient Walk: Yes Gait (FIM): 5 (household) Gait distance (FIM): 7=888-26 ft Distance: 50 ft household Walk 10 feet (QC): 5 Walk 10ft-Uneven Surface(QC): 4 Walk 50ft with 2 Turns (QC): 5 Walk 150 ft (QC): 4 (asssit with this, CGA) Gait Assistive Device: Cane Large Base Quad Does the Pt use WC or Scooter?: Yes Wheelchair (FIM): 6 Wheelchair distance (FIM): 3=150 ft Wheel 50 feet with 2 turns (QC: 6 Stairs (FIM): 5 (household) # of Steps: 8 1 Step (curb) (QC): 5 4 Steps (QC): 5 12 Steps (QC): 5 Stairs Level Of Assist: 6 Picking up an Object (QC): 4 PT Plan Problem List Problem List: Activity Tolerance, Functional Strength, Safety, Balance, Gait, Transfer, Bed Mobility, ROM Treatment/Plan Treatment Plan: Continue Plan of Care Treatment Plan: Bed Mobility, Education, Functional Activity Delmy, Functional Strength, Group Therapy, Gait, Safety, Therapeutic Exercise, Transfers Treatment Duration: Feb 19, 2017 Visits Per Week: 10-*15 Minutes/Day (M-F): 60-90 Minutes/Day (Sat/Gonzalez): prn Safety Risks/Education Patient Education: Gait Training, Transfer Techniques, W/C Management, Safety Issues Teaching Recipient: Patient Teaching Methods: Demonstration, Discussion Response to Teaching: Reinforcement Needed Time/GCodes Time In: 1000 Time Out: 1100 Total Billed Treatment Time: 60 Total Billed Treatment 1 visit EX 15 min FA 15 min GT 30 min BROOKE WORLEY PT Jan 26, 2017 11:03
--- NOTE | 2017-01-26 14:39 | Therapy Group Daily Note ---
Therapy Daily Group Note Patient Education Topic Other List Below (Rehab process/expectations) Exercises LE Seated Exercise, UE Exercise Other/Notes Pt attended OT group this pm. Pt performed w/c mobility to/from group therapy session. Pt introduced self to group and participated in socialization/group discussion and memory activity. Education was provided regarding rehab process/ expectations. Pt participated in group education/discussion and was able to identify home safety hazards. Pt participated in seated AROM UE/LE exercises to improve strength and activity tolerance. Pt required assist for right UE exercises. Pt returned to room; in bed with needs met after session. Start Time: 13:00 Stop Time: 14:10 Total Billed Treatment Time: 70 Total Billed Treatment 1 visit, GRP(70minutes) JOSSIE GALVEZ OT Jan 26, 2017 14:39
--- NOTE | 2017-01-26 17:22 | PM & R (SOAP) Progress Note ---
Subjective Subjective/Events-last exam Patient was seen in his room this AM Has footdrop on rt PT using AFO Patient min assist for transfers and gait Review of Systems Neurological: : Weakness Objective Exam Last Set of Vital Signs Vital Signs Date Time Temp Pulse Resp B/P Pulse Ox O2 Delivery O2 Flow Rate FiO2 01/26/17 09:00 Room Air 01/26/17 06:00 98.8 65 22 150/78 96 Capillary Refill : I&O Intake and Output 01/26/17 00:00 Intake Total 1380 ml Output Total 500 ml Balance 880 ml Intake Oral 1380 ml Output Urine Total 500 ml # Bowel Movements 2 General: Alert, Oriented X3, Cooperative, No Acute Distress HEENT: Atraumatic, PERRLA, EOMI, Mucous Memb Moist/[place], Other (rt labila droop ) Neck: Supple, No JVD Lungs: Clear to Auscultation Heart: Regular Rate Abdomen: Normal Bowel Sounds, Soft, No Tenderness Extremities: No Edema Neuro: Other (rt HP and mild cognitive impairment and word finding difficulty) Results Lab Laboratory Tests 01/23/17 20:10: Glucometer 146H 01/24/17 06:21: Glucometer 121H 01/24/17 10:40: Glucometer 128H 01/24/17 15:57: Glucometer 124H 01/24/17 20:30: Glucometer 124H 01/25/17 05:50: Anion Gap 12, BUN/Creatinine Ratio 23, Basophils # (Auto) 0.0, Basophils (%) ( Auto) 1, Blood Urea Nitrogen 29H, Calcium Level 9.1, Carbon Dioxide Level 19L, Chloride Level 108H, Creatinine 1.28, Eosinophils # (Auto) 0.2, Eosinophils (%) (Auto) 2, Estimat Glomerular Filtration Rate 57, Glucose Level 134H, Hematocrit 47, Hemoglobin 16.2, Lymphocytes # (Auto) 1.9, Lymphocytes (%) (Auto) 23, Mean Corpuscular Hemoglobin 29, Mean Corpuscular Hemoglobin Concent 35, Mean Corpuscular Volume 84, Mean Platelet Volume 9.4, Monocytes # (Auto) 0.7, Monocytes (%) (Auto) 9, Neutrophils # (Auto) 5.5, Neutrophils (%) (Auto) 66, Platelet Count 168, Potassium Level 4.1, Red Blood Count 5.56, Red Cell Distribution Width 12.7, Sodium Level 139, White Blood Count 8.4 01/25/17 06:11: Glucometer 124H 01/25/17 11:01: Glucometer 180H 01/25/17 15:58: Glucometer 129H 01/25/17 17:30: Urine Bacteria NEGATIVE, Urine Bilirubin NEGATIVE, Urine Casts NONE, Urine Clarity CLEAR, Urine Color YELLOW, Urine Crystals NONE, Urine Culture Indicated NO, Urine Glucose (UA) NEGATIVE, Urine Ketones NEGATIVE, Urine Leukocyte Esterase NEGATIVE, Urine Mucus NEGATIVE, Urine Nitrite NEGATIVE, Urine Protein 1 +H, Urine RBC NONE, Urine RBC (Auto) NEGATIVE, Urine Specific [place] 1.020, Urine Urobilinogen NORMAL, Urine WBC NONE, Urine pH 5 01/25/17 20:29: Glucometer 155H 01/26/17 05:29: Glucometer 129H 01/26/17 11:12: Glucometer 112H 01/26/17 15:57: Glucometer 114H Assessment/Plan Assessment Left CVA with RT HP HTN better controlled DM controlled Plan Continue PT/OT/ST Recheck Labs-done Team Conference held earlier today-See report for full functional update and POC and ELOS HTN meds adjusted see orders DANIKA BRADLEY MD Jan 26, 2017 17:22
[2017-01-26 18:00] VITALS: BP 145/73
[2017-01-26] MEDS: ATORVASTATIN 40 MG (LIPITOR) TABLET PO SCH (21:04)
[2017-01-26] MEDS: inSUlin DETERMIR 1 UNIT/0.01 ML (LEVEMIR) CHARGE PER UNIT SQ SCH (21:04)
[2017-01-27] MEDS: hydrALAZINE (APRESOLINE) 25 MG TAB PO SCH ×3 (05:54→20:48)
[2017-01-27] MEDS: inSUlin ASPART (NovoLOG) 1 UNIT/0.01 ML (CHARGE PER UNIT) SC SCH ×4 (06:00→20:39)
[2017-01-27 06:40] VITALS: BP 164/93
[2017-01-27] MEDS: amLODIPine 5 MG (NORVASC) TAB PO SCH (08:14)
[2017-01-27] MEDS: meTOprolol TARTRATE 25 MG (LOPRESSOR) TABLET PO SCH ×2 (08:14→20:48)
[2017-01-27] MEDS: ASPIRIN 325 MG (5 GR) TABLET PO SCH (08:14)
[2017-01-27] MEDS: HYDROCHLOROTHIAZIDE 25 MG (HCTZ) TAB PO SCH (08:14)
--- NOTE | 2017-01-27 08:18 | Progress Note (SOAP) ---
Subjective Subjective/Events-last exam CVA. Patient is progressing. Patient moving his right leg. Patient moving his right arm Objective Exam Vital Signs Date Time Temp Pulse Resp B/P Pulse Ox O2 Delivery O2 Flow Rate FiO2 01/27/17 06:40 98.2 67 18 164/93 95 Room Air 01/26/17 20:55 Room Air 01/26/17 18:00 98.1 87 20 145/73 98 Room Air 01/26/17 09:00 Room Air I & O 01/27/17 07:00 Intake Total 1240 ml Output Total 1100 ml Balance 140 ml Capillary Refill : General Appearance: No Apparent Distress WD/WN Results Lab Laboratory Tests 01/26/17 11:12: Glucometer 112H 01/26/17 15:57: Glucometer 114H 01/26/17 20:42: Glucometer 115H 01/27/17 06:25: Glucometer 123H Assessment/Plan Assessment/Plan Assess & Plan/Chief Complaint CVA on right. Hypertension. Diabetes. Patient when asked questions has a slow thought process. Patient unable to mushroom picker right hand. Patient does move his right leg. . 01/24/17. CVA on right. Hypertension. Diabetes. Patient is improving. Patient positive. . 01/25/17. CVA on right. Hypertension. HCTZ added. Patient moving right extremities better. Patient improving. . 01/26/17 CVA Hypertension Patient moving left extremities better. Patient improving. Blood pressure better today than yesterday. . 3/Touche last . CVA on right. Hypertension. Diabetes. Control. Patient talking better Diagnosis/Problems: Clinical Quality Measures DVT/VTE Risk/Contraindication: Risk Factor Score Per Nursin RFS Level Per Nursing on Admit: 4+=Very High BENJY SANTANA DO Jan 27, 2017 08:18
--- NOTE | 2017-01-27 09:47 | Speech Therapy Daily Note ---
Speech Daily Progress Note Subjective The patient was seated upright in recliner upon entrance. The patient greeted the clinician appropriately and agreed to participate in the speech and language treatment session on this date. The patient did report slight fatigue as he just recently finished showering with OT. Objective Word-Finding Strategy (Synonym): The patient was asked to provide synonyms and antonyms for a specific word provided by the clinician. The patient demonstrated fair accuracy with this task, requiring moderate clinician cueing for completion (approximately 30% accuracy with synonyms and 60% accuracy with antonyms). The patient demonstrated a slight decline in comparison to his previous session. Structured Conversation: The patient was asked to discuss past hobbies with the clinician. The patient demonstrated mild to moderate word-finding halts and pauses, requiring intermittent word-finding strategy recall from the clinician. Assessment Assessment Current Status: Good Progress Treatment Plan Continue Plan of Care Communication Comprehension: 4 Expression: 4 Social Cognition Social Interaction: 5 Problem Solvin Memory: 4 Speech Short Term Goals Short Term Goals Short Term Goals 1. The patient will demonstrated 80% accuracy throughout structured word- finding tasks, independently. 2. The patient will recall and demonstrate two functional memory strategies for use at home, independently. Time Frame-STG: Two Weeks Speech Dentist Goals Nursing Home Goals 1. The patient will demonstrated improved expressive communication and cognitive skills for increased function and safety with ADL's. Time Frame: Four Weeks Speech-Plan Treatment Plan Speech Therapy Treatment Plan: Continue Plan of Care Continue skilled speech services to target word-finding and improvement with expressive communication. Treatment Duration: Feb 21, 2017 # of days/week Four to five. Visits Per Week: Four to five. Minutes/Day (M-F): 30-45 Rehab Potential: Good Safety Risks/Education Teaching Recipient: Patient Teaching Methods: Discussion Response to Teaching: Verbalize Understanding, Return Demonstration Education Topics Provided: Word-Finding Strategies Time Speech Therapy Time In: 09:15 Speech Therapy Time Out: 09:45 Total Billed Time: 30 Billed Treatment Time 1, FRANCOIS LEWIS Jan 27, 2017 09:47
--- NOTE | 2017-01-27 11:21 | PM & R (SOAP) Progress Note ---
Subjective Subjective/Events-last exam Patient was seen in gym and on unit with therapy Patient min assist for gait with [facility] Appreciate therapy notes and DR coleman note Objective Exam Last Set of Vital Signs Vital Signs Date Time Temp Pulse Resp B/P Pulse Ox O2 Delivery O2 Flow Rate FiO2 01/27/17 09:00 Room Air 01/27/17 06:40 98.2 67 18 164/93 95 Capillary Refill : I&O Intake and Output 01/26/17 23:59 Intake Total 1100 ml Output Total 400 ml Balance 700 ml Intake Oral 1100 ml Output Urine Total 400 ml # Voids 7 General: Alert, Oriented X3, Cooperative, No Acute Distress HEENT: Atraumatic, PERRLA, EOMI, Mucous Memb Moist/[place], Other (rt labila droop ) Neck: Supple, No JVD Lungs: Clear to Auscultation Heart: Regular Rate Abdomen: Normal Bowel Sounds, Soft, No Tenderness Extremities: No Edema Neuro: Other (rt HP and mild cognitive impairment and word finding difficulty) Results Lab Laboratory Tests 01/24/17 15:57: Glucometer 124H 01/24/17 20:30: Glucometer 124H 01/25/17 05:50: Anion Gap 12, BUN/Creatinine Ratio 23, Basophils # (Auto) 0.0, Basophils (%) ( Auto) 1, Blood Urea Nitrogen 29H, Calcium Level 9.1, Carbon Dioxide Level 19L, Chloride Level 108H, Creatinine 1.28, Eosinophils # (Auto) 0.2, Eosinophils (%) (Auto) 2, Estimat Glomerular Filtration Rate 57, Glucose Level 134H, Hematocrit 47, Hemoglobin 16.2, Lymphocytes # (Auto) 1.9, Lymphocytes (%) (Auto) 23, Mean Corpuscular Hemoglobin 29, Mean Corpuscular Hemoglobin Concent 35, Mean Corpuscular Volume 84, Mean Platelet Volume 9.4, Monocytes # (Auto) 0.7, Monocytes (%) (Auto) 9, Neutrophils # (Auto) 5.5, Neutrophils (%) (Auto) 66, Platelet Count 168, Potassium Level 4.1, Red Blood Count 5.56, Red Cell Distribution Width 12.7, Sodium Level 139, White Blood Count 8.4 01/25/17 06:11: Glucometer 124H 01/25/17 11:01: Glucometer 180H 01/25/17 15:58: Glucometer 129H 01/25/17 17:30: Urine Bacteria NEGATIVE, Urine Bilirubin NEGATIVE, Urine Casts NONE, Urine Clarity CLEAR, Urine Color YELLOW, Urine Crystals NONE, Urine Culture Indicated NO, Urine Glucose (UA) NEGATIVE, Urine Ketones NEGATIVE, Urine Leukocyte Esterase NEGATIVE, Urine Mucus NEGATIVE, Urine Nitrite NEGATIVE, Urine Protein 1 +H, Urine RBC NONE, Urine RBC (Auto) NEGATIVE, Urine Specific [place] 1.020, Urine Urobilinogen NORMAL, Urine WBC NONE, Urine pH 5 01/25/17 20:29: Glucometer 155H 01/26/17 05:29: Glucometer 129H 01/26/17 11:12: Glucometer 112H 01/26/17 15:57: Glucometer 114H 01/26/17 20:42: Glucometer 115H 01/27/17 06:25: Glucometer 123H Assessment/Plan Assessment Left CVA with RT HP HTN better controlled DM controlled Plan Continue PT/OT/ST Recheck Labs-done Team Conference held yesterday-See report for full functional update and POC and ELOS HTN meds adjusted earlier this week with better control see orders DANIKA BRADLEY MD Jan 27, 2017 11:21
--- NOTE | 2017-01-27 11:34 | Occupational Ther Daily Note ---
OT Current Status-Daily Note Subjective Pt in bed, agrees to treatment. Pt has no reports of pain. Mental Status/Objective Functional [place] Measure 0=Not Assessed/NA 4=Minimal Assistance 1=Total Assistance 5=Supervision or Setup 2=Maximal Assistance 6=Modified [place] 3=Moderate Assistance 7=Complete [place] ADL-Treatment Supine to sit with SBA using bed rails. Pt agreeable to shower today. Transfer to w/c with minimal assistance. To restroom via w/c. Pt transferred w/c <-> shower bench with minimal assistance using grab bars. Skilled cues for transfer safety. Seated bathing completed using hand held shower. Pt able to wash right UE, chest, abdomen, marta area, bilateral upper legs, and left lower leg. Assist with left UE, buttocks, and right lower leg. Don long sleeve t-shirt with moderate assistance. Pt has difficulty remembering technique for dressing. Assist required for threading right UE into sleeve and pulling shirt down in back. Don Depends and pants with moderate assistance. Pt requires assist to start over right foot. Stood with moderate assistance for pant hike. Pt donned socks with minimal assistance. Pt requires increased time for all tasks. Pt fatigues with activity and requires rest breaks throughout treatment. Pt combed hair with SBA. Functional [place] Measure 0=Not Assessed/NA 4=Minimal Assistance 1=Total Assistance 5=Supervision or Setup 2=Maximal Assistance 6=Modified [place] 3=Moderate Assistance 7=Complete IndependenceIRFPAI Quality Coding Scale 6 Independent with activity with or without an assistive device 5 Patient requires set up or clean up by helper. Patient completes activity by themselves 4 Supervision or touching assist (CGA). [place] provide cues , steadying assist 3 The helper provides less than half the effort to complete the activity 2 The helper provides more than half the effort to complete the activity 1 Dependent. The helper does all the effort to complete an activity 7 Patient refused to complete or attempt activity 9 The patient did not perform the activity before the current illness or injury 88 Not attempted due to Medical conditions or safety concerns Grooming (FIM): 5 Bathing (FIM): 3 Upper Body (FIM): 3 Lower Body Dressing (FIM): 3 Shower Transfer(FIM): 4 Education OT Patient Education: Modified ADL techniques Teaching Recipient: Patient Teaching Methods: Demonstration, Discussion Response to Teaching: Verbalize Understanding, Reinforcement Needed OT Short Term Goals Short Term Goals Time Frame: Jan 29, 2017 Eating(FIM): 5 Grooming(FIM): 5 Bathing(FIM): 4 Upper Body Dressing(FIM): 4 Lower Body Dressing(FIM): 4 Toileting(FIM): 4 Transfers (B,C,W/C) (FIM): 4 Toilet/Commode Transfer(FIM): 4 Shower Transfer(FIM): 4 Additional Short Term Goals: 1-Demonstrate ADL Tasks, 2-Verbalize Understanding , 3-ImproveStrength/Delmy 1=Demonstrate adherence to instructed precautions during ADL tasks. 2=Patient will verbalize/demonstrate understanding of assistive devices/ modifications for ADL. 3=Patient will improve strength/tolerance for activity to enable patient to perform ADL's. OT Half-Way Goals Supervisor Unloading Goals Time Frame: Feb 12, 2017 Eating (FIM): 6 Eating (QC): 6 Groomin Oral Hygiene (QC): 6 Bathing(FIM): 5 Shower/Bathe Self (QC): 5 Upper Body Dressing(FIM): 6 Upper Body Dressing (QC): 6 Lower Body Dressing(FIM): 6 Lower Body Dressing (QC): 6 On/Off Footwear (QC): 6 Toileting(FIM): 6 Toileting Hygiene (QC): 6 Transfers (B,C,W/C) (FIM): 6 Toilet/Commode Transfer(FIM): 6 Toilet/Commode Transfer (QC): 6 Shower Transfer(FIM): 6 Additional Goals: 1-Demonstrate ADL Tasks, 2-Verbalize Understanding, 3- ImproveStrength/Delmy 1=Demonstrate adherence to instructed precautions during ADL tasks. 2=Patient will verbalize/demonstrate understanding of assistive devices/ modifications for ADL. 3=Patient will improve strength/tolerance for activity to enable patient to perform ADL's. OT Education/Plan Discharge Recommendations Plan/Recommendations: Continue POC Treatment Plan/Plan of Care Patient would benefit from OT for education, treatment and training to promote independence in ADL's, mobility, safety and/or upper extremity function for ADL' s. Plan of Care: ADL Retraining, Caregiver Training, Cognitive Retraining, Functional Mobility, Group Exercise/Act as Ind, UE Funct Exercise/Act Treatment Duration: Feb 12, 2017 Visits Per Week: 10-12 Minutes/Day (M-F): 60-90 Minutes/Day (Sat/Gonzalez): prn Agreement: Yes Rehab Potential: Good Time/GCodes Start Time: 08:00 Stop Time: 09:15 Total Time Billed (hr/min): 75 Billed Treatment Time 1 visit, ADLx5(75minutes) JOSSIE GALVEZ OT Jan 27, 2017 11:34
--- NOTE | 2017-01-27 11:43 | Physical Therapy Daily Note ---
PT Daily Note-Current Subjective Patient in wheelchair pre tx, agrees to PT, just finishing up with OT. Patient has no complaints of pain. Appearance Patient in wheelchair post tx to go back to his room. He is mod I with wheelchair mobility. Mental Status Patient Orientation: Person, Place, Situation Transfers Functional [place] Measure 0=Not Assessed/NA 4=Minimal Assistance 1=Total Assistance 5=Supervision or Setup 2=Maximal Assistance 6=Modified [place] 3=Moderate Assistance 7=Complete IndependenceIRFPAI Quality Coding Scale 6 Independent with activity with or without an assistive device 5 Patient requires set up or clean up by helper. Patient completes activity by themselves 4 Supervision or touching assist (CGA). [place] provide cues , steadying assist 3 The helper provides less than half the effort to complete the activity 2 The helper provides more than half the effort to complete the activity 1 Dependent. The helper does all the effort to complete an activity 7 Patient refused to complete or attempt activity 9 The patient did not perform the activity before the current illness or injury 88 Not attempted due to Medical conditions or safety concerns Transfers (B, C, W/C) (FIM): 4 Scootin Rollin Supine to/from Sit: 5 Sit to/from Stand: 4 Bed to/from Chair: 4 cues for hand placement and safety, stand pivot min assist to the right and CGA to the left, patient practiced bed mobility lying down to each side several times and rolling to each side several times Gait Training Gait (FIM): 2 Distance: 70'x2 Gait Level of Assist: 4 Gait Persons Needed: 1 Gait Assistive Device: Cane Large Base Quad Patient ambulates 70' with a quad cane and min assist for balance, uses right side selvin wrap on ankle to assist with dorsiflexion Wheelchair Training Does the Pt Use a Wheelchair?: Yes Wheelchair (FIM): 6 Distance: 150'x2 Type of Wheelchair: Manual Exercises LAQ right side supine on bolster for 5 min NuStep Minutes: 15 NuStep Workload: 4 Treatments bed mobility and transfer training, ambulation, functional strengthening Assessment Current Status: Fair Progress improving balance and endurance PT Short Term Goals Short Term Goals Time Frame: Feb 05, 2017 Transfers (B,C,W/C) (FIM): 4 Gait (FIM): 4 Distance (FIM): 3=150 ft Gait Assistive Device: Cane Large Base Quad Wheelchair Distance: 150'x2 Stairs (FIM): 2 # of Steps: 4 Stairs Level of Assist: 4 PT Assisted Goals Assisted Goals PT Assisted Goals Time Frame: Feb 19, 2017 Transfers (B,C,W/C) (FIM): 6 Sit to Lying (QC): 6 Lying-Sitting on Side/Bed(QC): 6 Sit to Stand (QC): 6 Rollin Roll Left to Right (QC): 6 Chair/Nzb-rt-Iflbx Xfer(QC): 6 Car Transfer (QC): 6 Does the Patient Walk: Yes Gait (FIM): 5 (household) Gait distance (FIM): 8=979-17 ft Distance: 50 ft household Walk 10 feet (QC): 5 Walk 10ft-Uneven Surface(QC): 4 Walk 50ft with 2 Turns (QC): 5 Walk 150 ft (QC): 4 (asssit with this, CGA) Gait Assistive Device: Cane Large Base Quad Does the Pt use WC or Scooter?: Yes Wheelchair (FIM): 6 Wheelchair distance (FIM): 3=150 ft Wheel 50 feet with 2 turns (QC: 6 Stairs (FIM): 5 (household) # of Steps: 8 1 Step (curb) (QC): 5 4 Steps (QC): 5 12 Steps (QC): 5 Stairs Level Of Assist: 6 Picking up an Object (QC): 4 PT Plan Problem List Problem List: Activity Tolerance, Functional Strength, Safety, Balance, Gait, Transfer, Bed Mobility, ROM Treatment/Plan Treatment Plan: Continue Plan of Care Treatment Plan: Bed Mobility, Education, Functional Activity Delmy, Functional Strength, Group Therapy, Gait, Safety, Therapeutic Exercise, Transfers Treatment Duration: Feb 19, 2017 Visits Per Week: 10-*15 Minutes/Day (M-F): 60-90 Minutes/Day (Sat/Gonzalez): prn Safety Risks/Education Patient Education: Gait Training, Transfer Techniques, Correct Positioning, Safety Issues Teaching Recipient: Patient Teaching Methods: Demonstration, Discussion Response to Teaching: Reinforcement Needed Time/GCodes Time In: 1045 Time Out: 1145 Total Billed Treatment Time: 60 Total Billed Treatment 1 visit EX 20 min GT 30 min FA 10 min BROOKE WORLEY PT Jan 27, 2017 11:43
--- NOTE | 2017-01-27 11:50 | Occupational Ther Daily Note ---
OT Current Status-Daily Note Subjective Pt sitting in w/c, agrees to treatment Mental Status/Objective Functional [place] Measure 0=Not Assessed/NA 4=Minimal Assistance 1=Total Assistance 5=Supervision or Setup 2=Maximal Assistance 6=Modified [place] 3=Moderate Assistance 7=Complete [place] ADL-Treatment Functional [place] Measure 0=Not Assessed/NA 4=Minimal Assistance 1=Total Assistance 5=Supervision or Setup 2=Maximal Assistance 6=Modified [place] 3=Moderate Assistance 7=Complete IndependenceIRFPAI Quality Coding Scale 6 Independent with activity with or without an assistive device 5 Patient requires set up or clean up by helper. Patient completes activity by themselves 4 Supervision or touching assist (CGA). [place] provide cues , steadying assist 3 The helper provides less than half the effort to complete the activity 2 The helper provides more than half the effort to complete the activity 1 Dependent. The helper does all the effort to complete an activity 7 Patient refused to complete or attempt activity 9 The patient did not perform the activity before the current illness or injury 88 Not attempted due to Medical conditions or safety concerns Other Treatment Pt transferred recliner to w/c with minimal assistance. Right UE ROM completed to promote increased active movement and strength. Pt demonstrates minimal active shoulder elevation and scapular retraction. Pt also demonstrates minimal shoulder abduction. Pt fatigues very quickly with movement and he requires cues not to hold breath during exercises. PROM completed at all joints x10 reps. Pt demonstrates trace biceps contraction in gravity eliminated plane. No active movement of forearm, wrist, or hand noted. Pt sitting in w/c with PT present after session. OT Short Term Goals Short Term Goals Time Frame: Jan 29, 2017 Eating(FIM): 5 Grooming(FIM): 5 Bathing(FIM): 4 Upper Body Dressing(FIM): 4 Lower Body Dressing(FIM): 4 Toileting(FIM): 4 Transfers (B,C,W/C) (FIM): 4 Toilet/Commode Transfer(FIM): 4 Shower Transfer(FIM): 4 Additional Short Term Goals: 1-Demonstrate ADL Tasks, 2-Verbalize Understanding , 3-ImproveStrength/Delmy 1=Demonstrate adherence to instructed precautions during ADL tasks. 2=Patient will verbalize/demonstrate understanding of assistive devices/ modifications for ADL. 3=Patient will improve strength/tolerance for activity to enable patient to perform ADL's. OT [place] Goals [place] Goals Time Frame: Feb 12, 2017 Eating (FIM): 6 Eating (QC): 6 Groomin Oral Hygiene (QC): 6 Bathing(FIM): 5 Shower/Bathe Self (QC): 5 Upper Body Dressing(FIM): 6 Upper Body Dressing (QC): 6 Lower Body Dressing(FIM): 6 Lower Body Dressing (QC): 6 On/Off Footwear (QC): 6 Toileting(FIM): 6 Toileting Hygiene (QC): 6 Transfers (B,C,W/C) (FIM): 6 Toilet/Commode Transfer(FIM): 6 Toilet/Commode Transfer (QC): 6 Shower Transfer(FIM): 6 Additional Goals: 1-Demonstrate ADL Tasks, 2-Verbalize Understanding, 3- ImproveStrength/Delmy 1=Demonstrate adherence to instructed precautions during ADL tasks. 2=Patient will verbalize/demonstrate understanding of assistive devices/ modifications for ADL. 3=Patient will improve strength/tolerance for activity to enable patient to perform ADL's. OT Education/Plan Discharge Recommendations Plan/Recommendations: Continue POC Treatment Plan/Plan of Care Patient would benefit from OT for education, treatment and training to promote independence in ADL's, mobility, safety and/or upper extremity function for ADL' s. Plan of Care: ADL Retraining, Caregiver Training, Cognitive Retraining, Functional Mobility, Group Exercise/Act as Ind, UE Funct Exercise/Act Treatment Duration: Feb 12, 2017 Visits Per Week: 10-12 Minutes/Day (M-F): 60-90 Minutes/Day (Sat/Gonzalez): prn Agreement: Yes Rehab Potential: Good Time/GCodes Start Time: 10:30 Stop Time: 10:45 Total Time Billed (hr/min): 15 Billed Treatment Time 1 visit, LEILA(15minutes) JOSSIE GALVEZ OT Jan 27, 2017 11:50
--- NOTE | 2017-01-27 14:02 | Physical Therapy Daily Note ---
PT Daily Note-Current Subjective Patient in bed pre tx, agrees to PT, no complaints of pain Appearance Patient BTB post tx with nurse call, phone, tray, all needs met. Mental Status Patient Orientation: Normal For Age Transfers Functional [place] Measure 0=Not Assessed/NA 4=Minimal Assistance 1=Total Assistance 5=Supervision or Setup 2=Maximal Assistance 6=Modified [place] 3=Moderate Assistance 7=Complete IndependenceIRFPAI Quality Coding Scale 6 Independent with activity with or without an assistive device 5 Patient requires set up or clean up by helper. Patient completes activity by themselves 4 Supervision or touching assist (CGA). [place] provide cues , steadying assist 3 The helper provides less than half the effort to complete the activity 2 The helper provides more than half the effort to complete the activity 1 Dependent. The helper does all the effort to complete an activity 7 Patient refused to complete or attempt activity 9 The patient did not perform the activity before the current illness or injury 88 Not attempted due to Medical conditions or safety concerns Transfers (B, C, W/C) (FIM): 4 Scootin Rollin Supine to/from Sit: 5 Sit to/from Stand: 4 Bed to/from Chair: 4 cues for safety and hand placement Gait Training Gait (FIM): 2 Distance: 70'x2 Gait Level of Assist: 4 Gait Persons Needed: 1 Gait Assistive Device: Cane Large Base Quad min assist for balance, right selvin wrap on ankle for dorsiflexion assist Exercises LAQ alternating for 5 min seated Treatments bed mobility and transfers, ambulation, functional strengthening Assessment Current Status: Fair Progress improving endurance and balance PT Short Term Goals Short Term Goals Time Frame: Feb 05, 2017 Transfers (B,C,W/C) (FIM): 4 Gait (FIM): 4 Distance (FIM): 3=150 ft Gait Assistive Device: Cane Large Base Quad Wheelchair Distance: 150'x2 Stairs (FIM): 2 # of Steps: 4 Stairs Level of Assist: 4 PT Fci Goals Fci Goals 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 Time Frame: Feb 19, 2017 Transfers (B,C,W/C) (FIM): 6 Sit to Lying (QC): 6 Lying-Sitting on Side/Bed(QC): 6 Sit to Stand (QC): 6 Rollin Roll Left to Right (QC): 6 Chair/Khd-og-Yzdvm Xfer(QC): 6 Car Transfer (QC): 6 Does the Patient Walk: Yes Gait (FIM): 5 (household) Gait distance (FIM): 6=189-01 ft Distance: 50 ft household Walk 10 feet (QC): 5 Walk 10ft-Uneven Surface(QC): 4 Walk 50ft with 2 Turns (QC): 5 Walk 150 ft (QC): 4 (asssit with this, CGA) Gait Assistive Device: Cane Large Base Quad Does the Pt use WC or Scooter?: Yes Wheelchair (FIM): 6 Wheelchair distance (FIM): 3=150 ft Wheel 50 feet with 2 turns (QC: 6 Stairs (FIM): 5 (household) # of Steps: 8 1 Step (curb) (QC): 5 4 Steps (QC): 5 12 Steps (QC): 5 Stairs Level Of Assist: 6 Picking up an Object (QC): 4 PT Plan Problem List Problem List: Activity Tolerance, Functional Strength, Safety, Balance, Gait, Transfer, Bed Mobility, ROM Treatment/Plan Treatment Plan: Continue Plan of Care Treatment Plan: Bed Mobility, Education, Functional Activity Delmy, Functional Strength, Group Therapy, Gait, Safety, Therapeutic Exercise, Transfers Treatment Duration: Feb 19, 2017 Visits Per Week: 10-*15 Minutes/Day (M-F): 60-90 Minutes/Day (Sat/Gonzalez): prn Safety Risks/Education Patient Education: Gait Training, Transfer Techniques, Safety Issues Teaching Recipient: Patient Teaching Methods: Demonstration, Discussion Response to Teaching: Reinforcement Needed Time/GCodes Time In: 1330 Time Out: 1400 Total Billed Treatment Time: 30 Total Billed Treatment 1 visit FA 10 min GT 20 min BROOKE WORLEY PT Jan 27, 2017 14:02
[2017-01-27 18:00] VITALS: BP 169/82
[2017-01-27] MEDS ORDERED: MILK OF MAGNESIA 400 MG/5 ML 30 ML UDC PO PRN (18:45)
[2017-01-27] MEDS ORDERED: SENNA W/DOCUSATE (SENOKOT S) TABLET ONE (19:31)
[2017-01-27] MEDS: ATORVASTATIN 40 MG (LIPITOR) TABLET PO SCH (20:48)
[2017-01-27] MEDS: SENNA W/DOCUSATE (SENOKOT S) TABLET PO SCH (20:48)
[2017-01-27] MEDS: inSUlin DETERMIR 1 UNIT/0.01 ML (LEVEMIR) CHARGE PER UNIT SQ SCH (20:49)
[2017-01-28] MEDS: hydrALAZINE (APRESOLINE) 25 MG TAB PO SCH ×3 (05:29→21:00)
[2017-01-28 05:38] VITALS: BP 156/85
[2017-01-28] MEDS: inSUlin ASPART (NovoLOG) 1 UNIT/0.01 ML (CHARGE PER UNIT) SC SCH ×4 (06:00→21:00)
--- NOTE | 2017-01-28 08:02 | Progress Note (SOAP) ---
Subjective Subjective/Events-last exam CVA. Patient is improving. Patient unable to move his right hand and fingers Objective Exam Vital Signs Date Time Temp Pulse Resp B/P Pulse Ox O2 Delivery O2 Flow Rate FiO2 01/28/17 05:38 97.1 67 18 156/85 97 Room Air 01/27/17 20:51 Room Air 01/27/17 18:00 98.0 70 18 169/82 95 Room Air 01/27/17 09:00 Room Air I & O 01/28/17 07:00 Intake Total 1150 ml Output Total 560 ml Balance 590 ml Capillary Refill : General Appearance: No Apparent Distress WD/WN HEENT: Normal ENT Inspection Results Lab Laboratory Tests 01/27/17 11:58: Glucometer 88 01/27/17 16:17: Glucometer 138H 01/27/17 20:37: Glucometer 126H 01/28/17 06:02: Glucometer 116H Assessment/Plan Assessment/Plan Assess & Plan/Chief Complaint CVA on right. Hypertension. Diabetes. Patient when asked questions has a slow thought process. Patient unable to picker / packer right hand. Patient does move his right leg. . 01/24/17. CVA on right. Hypertension. Diabetes. Patient is improving. Patient positive. . 01/25/17. CVA on right. Hypertension. HCTZ added. Patient moving right extremities better. Patient improving. . 01/26/17 CVA Hypertension Patient moving left extremities better. Patient improving. Blood pressure better today than yesterday. . 3/Touche last . CVA on right. Hypertension. Diabetes. Control. Patient talking better. . 01/28/17. CVA on right. Hypertension. Diabetes. Patient continues to improve slowly Diagnosis/Problems: Clinical Quality Measures DVT/VTE Risk/Contraindication: Risk Factor Score Per Nursin RFS Level Per Nursing on Admit: 4+=Very High BENJY SANTANA DO Jan 28, 2017 08:02
[2017-01-28] MEDS: amLODIPine 5 MG (NORVASC) TAB PO SCH (08:04)
[2017-01-28] MEDS: meTOprolol TARTRATE 25 MG (LOPRESSOR) TABLET PO SCH ×2 (08:04→21:00)
[2017-01-28] MEDS: HYDROCHLOROTHIAZIDE 25 MG (HCTZ) TAB PO SCH (08:04)
[2017-01-28] MEDS: ASPIRIN 325 MG (5 GR) TABLET PO SCH (08:04)
[2017-01-28] MEDS: SENNA W/DOCUSATE (SENOKOT S) TABLET PO SCH ×2 (08:04→21:00)
--- NOTE | 2017-01-28 08:13 | PM & R (SOAP) Progress Note ---
Subjective Subjective/Events-last exam Patient was seen in his room this AM Called last evening re patients c/o constipation Meds adjusted with good results Patient min assist for transfers Objective Exam Last Set of Vital Signs Vital Signs Date Time Temp Pulse Resp B/P Pulse Ox O2 Delivery O2 Flow Rate FiO2 01/28/17 05:38 97.1 67 18 156/85 97 Room Air Capillary Refill : I&O Intake and Output 01/28/17 00:00 Intake Total 1440 ml Output Total 1260 ml Balance 180 ml Intake Oral 1440 ml Output Urine Total 1260 ml General: Alert, Oriented X3, Cooperative, No Acute Distress HEENT: Atraumatic, PERRLA, EOMI, Mucous Memb Moist/[place], Other (rt labila droop ) Neck: Supple, No JVD Lungs: Clear to Auscultation Heart: Regular Rate Abdomen: Normal Bowel Sounds, Soft, No Tenderness Extremities: No Edema Neuro: Other (rt HP and mild cognitive impairment and word finding difficulty) Results Lab Laboratory Tests 01/25/17 11:01: Glucometer 180H 01/25/17 15:58: Glucometer 129H 01/25/17 17:30: Urine Bacteria NEGATIVE, Urine Bilirubin NEGATIVE, Urine Casts NONE, Urine Clarity CLEAR, Urine Color YELLOW, Urine Crystals NONE, Urine Culture Indicated NO, Urine Glucose (UA) NEGATIVE, Urine Ketones NEGATIVE, Urine Leukocyte Esterase NEGATIVE, Urine Mucus NEGATIVE, Urine Nitrite NEGATIVE, Urine Protein 1 +H, Urine RBC NONE, Urine RBC (Auto) NEGATIVE, Urine Specific [place] 1.020, Urine Urobilinogen NORMAL, Urine WBC NONE, Urine pH 5 01/25/17 20:29: Glucometer 155H 01/26/17 05:29: Glucometer 129H 01/26/17 11:12: Glucometer 112H 01/26/17 15:57: Glucometer 114H 01/26/17 20:42: Glucometer 115H 01/27/17 06:25: Glucometer 123H 01/27/17 11:58: Glucometer 88 01/27/17 16:17: Glucometer 138H 01/27/17 20:37: Glucometer 126H 01/28/17 06:02: Glucometer 116H Assessment/Plan Assessment Left CVA with RT HP HTN better controlled DM controlled -Diabetic education ordered Constipation treated Plan Continue PT/OT/ST Recheck Labs-done Team Conference held 3/1/17 -See report for full functional update and POC and ELOS HTN meds adjusted earlier this week with better control Constipation treated see orders DANIKA BRADLEY MD Jan 28, 2017 08:13
--- NOTE | 2017-01-28 09:32 | Speech Therapy Daily Note ---
Speech Daily Progress Note Subjective The patient was sitting upright in recliner upon entrance. The patient greeted the clinician appropriately and agreed to participate in the speech and language treatment session on this date. Objective Word-Finding: The patient was provided a specific category and asked to provide three items that would fit into the provided category. The patient demonstrated moderate difficulty with this task, requiring intermittent moderate to maximum cueing to provide one item for each category. The patient does demonstrate frustration and awareness of his word-finding difficulty which does appear to decline his language function throughout the session. Assessment Assessment Current Status: Fair Progress Treatment Plan Continue Plan of Care Communication Comprehension: 5 Expression: 4 Social Cognition Social Interaction: 5 Problem Solvin Memory: 4 Speech Short Term Goals Short Term Goals Short Term Goals 1. The patient will demonstrated 80% accuracy throughout structured word- finding tasks, independently. 2. The patient will recall and demonstrate two functional memory strategies for use at home, independently. Time Frame-STG: Two Weeks Speech Snf Goals [place] Goals 1. The patient will demonstrated improved expressive communication and cognitive skills for increased function and safety with ADL's. Time Frame: Four Weeks Speech-Plan Treatment Plan Speech Therapy Treatment Plan: Continue Plan of Care Continue skilled speech therapy to focus on functional word-finding skills. Treatment Duration: Feb 21, 2017 # of days/week Four to five. Visits Per Week: Four to five. Minutes/Day (M-F): 30-45 Rehab Potential: Good Safety Risks/Education Teaching Recipient: Patient Teaching Methods: Demonstration, Discussion Response to Teaching: Verbalize Understanding, Return Demonstration, Reinforcement Needed Education Topics Provided: Word-Finding Strategies Time Speech Therapy Time In: 09:00 Speech Therapy Time Out: 09:30 Total Billed Time: 30 Billed Treatment Time 1DAHLIA ELIZABETH ST Jan 28, 2017 09:32
--- NOTE | 2017-01-28 11:23 | Occupational Ther Daily Note ---
OT Current Status-Daily Note Subjective Pt in bed, agrees to treatment. Pt has no c/o pain. Mental Status/Objective Functional [place] Measure 0=Not Assessed/NA 4=Minimal Assistance 1=Total Assistance 5=Supervision or Setup 2=Maximal Assistance 6=Modified [place] 3=Moderate Assistance 7=Complete [place] ADL-Treatment Supine to sit with supervision using bed rails. Pt declined bathing today. Has already donned clean shirt. Pt donned shorts while seated EOB. Pt able to start shorts over bilateral feet. Stood with minimal assistance. Pt able to complete pant hike with minimal assistance for balance. Pt doffed socks with SBA. Donned socks with close SBA and increased time. Pt had difficulty starting right sock over toes, but is able to complete task with increased time and cues for technique. Transfer to w/c with minimal assistance. Pt completed grooming tasks while seated at sink. Pt washed face and combed hair with set up. Toilet transfer completed with minimal assistance. Pt requires maximal assistance for toileting. Functional [place] Measure 0=Not Assessed/NA 4=Minimal Assistance 1=Total Assistance 5=Supervision or Setup 2=Maximal Assistance 6=Modified [place] 3=Moderate Assistance 7=Complete IndependenceIRFPAI Quality Coding Scale 6 Independent with activity with or without an assistive device 5 Patient requires set up or clean up by helper. Patient completes activity by themselves 4 Supervision or touching assist (CGA). [place] provide cues , steadying assist 3 The helper provides less than half the effort to complete the activity 2 The helper provides more than half the effort to complete the activity 1 Dependent. The helper does all the effort to complete an activity 7 Patient refused to complete or attempt activity 9 The patient did not perform the activity before the current illness or injury 88 Not attempted due to Medical conditions or safety concerns Grooming (FIM): 5 Lower Body Dressing (FIM): 4 Toileting (FIM): 2 Toilet/Commode Transfer (FIM): 4 Other Treatment Pt performed w/c mobility to therapy gym with occasional cues for safety. Transfer w/c <-> mat with minimal assistance. Weight bearing completed through right UE. Pt requires assist to maintain proper positioning during activity. Sit <-> supine on mat with minimal assistance. Pt completed right UE exercises while in supine. Pt performed shoulder elevation and shoulder abduction. Pt demonstrates minimal active movements. Attempted shoulder flexion in gravity eliminated position, but no active flexion noted. Pt performed scapular retraction while seated edge of mat. PROM completed at right shoulder x10 reps. Pt returned to room, transferred to recliner chair with minimal assistance. Sitting in chair with needs met after session. OT Short Term Goals Short Term Goals Time Frame: Jan 29, 2017 Eating(FIM): 5 Grooming(FIM): 5 Bathing(FIM): 4 Upper Body Dressing(FIM): 4 Lower Body Dressing(FIM): 4 Toileting(FIM): 4 Transfers (B,C,W/C) (FIM): 4 Toilet/Commode Transfer(FIM): 4 Shower Transfer(FIM): 4 Additional Short Term Goals: 1-Demonstrate ADL Tasks, 2-Verbalize Understanding , 3-ImproveStrength/Delmy 1=Demonstrate adherence to instructed precautions during ADL tasks. 2=Patient will verbalize/demonstrate understanding of assistive devices/ modifications for ADL. 3=Patient will improve strength/tolerance for activity to enable patient to perform ADL's. OT Fpc Goals Fpc Goals Time Frame: Feb 12, 2017 Eating (FIM): 6 Eating (QC): 6 Groomin Oral Hygiene (QC): 6 Bathing(FIM): 5 Shower/Bathe Self (QC): 5 Upper Body Dressing(FIM): 6 Upper Body Dressing (QC): 6 Lower Body Dressing(FIM): 6 Lower Body Dressing (QC): 6 On/Off Footwear (QC): 6 Toileting(FIM): 6 Toileting Hygiene (QC): 6 Transfers (B,C,W/C) (FIM): 6 Toilet/Commode Transfer(FIM): 6 Toilet/Commode Transfer (QC): 6 Shower Transfer(FIM): 6 Additional Goals: 1-Demonstrate ADL Tasks, 2-Verbalize Understanding, 3- ImproveStrength/Delmy 1=Demonstrate adherence to instructed precautions during ADL tasks. 2=Patient will verbalize/demonstrate understanding of assistive devices/ modifications for ADL. 3=Patient will improve strength/tolerance for activity to enable patient to perform ADL's. OT Education/Plan Discharge Recommendations Plan/Recommendations: Continue POC Treatment Plan/Plan of Care Patient would benefit from OT for education, treatment and training to promote independence in ADL's, mobility, safety and/or upper extremity function for ADL' s. Plan of Care: ADL Retraining, Caregiver Training, Cognitive Retraining, Functional Mobility, Group Exercise/Act as Ind, UE Funct Exercise/Act Treatment Duration: Feb 12, 2017 Visits Per Week: 10-12 Minutes/Day (M-F): 60-90 Minutes/Day (Sat/Gonzalez): prn Agreement: Yes Rehab Potential: Good Time/GCodes Start Time: 08:00 Stop Time: 09:00 Total Time Billed (hr/min): 60 Billed Treatment Time 1 visit, ADLx2(30minutes), EXx2(30minutes) JOSSIE GALVEZ OT Jan 28, 2017 11:23
--- NOTE | 2017-01-28 11:30 | Occupational Ther Daily Note ---
OT Current Status-Daily Note Subjective Pt sitting in chair, agrees to treatment. Pt has no c/o pain, but reports fatigue after session. Mental Status/Objective Functional [place] Measure 0=Not Assessed/NA 4=Minimal Assistance 1=Total Assistance 5=Supervision or Setup 2=Maximal Assistance 6=Modified [place] 3=Moderate Assistance 7=Complete [place] ADL-Treatment Functional [place] Measure 0=Not Assessed/NA 4=Minimal Assistance 1=Total Assistance 5=Supervision or Setup 2=Maximal Assistance 6=Modified [place] 3=Moderate Assistance 7=Complete IndependenceIRFPAI Quality Coding Scale 6 Independent with activity with or without an assistive device 5 Patient requires set up or clean up by helper. Patient completes activity by themselves 4 Supervision or touching assist (CGA). [place] provide cues , steadying assist 3 The helper provides less than half the effort to complete the activity 2 The helper provides more than half the effort to complete the activity 1 Dependent. The helper does all the effort to complete an activity 7 Patient refused to complete or attempt activity 9 The patient did not perform the activity before the current illness or injury 88 Not attempted due to Medical conditions or safety concerns Other Treatment Transfer recliner to w/c with minimal assistance. Pt performed w/c mobility to therapy gym. Right UE exercises completed to promote increased active movement and ROM. PROM completed x10 reps for elbow flexion/extension, forearm pronation/ supination, wrist flexion/extension, and finger flexion extension. Pt demonstrates some active elbow flexion, but fatigues very quickly with activity. Pt requires cues not to hold breath during exercises. Frequent rest breaks required. Pt demonstrated ability to perform proper self ROM to elbow, shoulder, and fingers. Pt completed w/c mobility back to room. Sitting in w/c with needs met after session. OT Short Term Goals Short Term Goals Time Frame: Jan 29, 2017 Eating(FIM): 5 Grooming(FIM): 5 Bathing(FIM): 4 Upper Body Dressing(FIM): 4 Lower Body Dressing(FIM): 4 Toileting(FIM): 4 Transfers (B,C,W/C) (FIM): 4 Toilet/Commode Transfer(FIM): 4 Shower Transfer(FIM): 4 Additional Short Term Goals: 1-Demonstrate ADL Tasks, 2-Verbalize Understanding , 3-ImproveStrength/Delmy 1=Demonstrate adherence to instructed precautions during ADL tasks. 2=Patient will verbalize/demonstrate understanding of assistive devices/ modifications for ADL. 3=Patient will improve strength/tolerance for activity to enable patient to perform ADL's. OT Employment Instructional Associate Goals Employment Instructional Associate Goals Time Frame: Feb 12, 2017 Eating (FIM): 6 Eating (QC): 6 Groomin Oral Hygiene (QC): 6 Bathing(FIM): 5 Shower/Bathe Self (QC): 5 Upper Body Dressing(FIM): 6 Upper Body Dressing (QC): 6 Lower Body Dressing(FIM): 6 Lower Body Dressing (QC): 6 On/Off Footwear (QC): 6 Toileting(FIM): 6 Toileting Hygiene (QC): 6 Transfers (B,C,W/C) (FIM): 6 Toilet/Commode Transfer(FIM): 6 Toilet/Commode Transfer (QC): 6 Shower Transfer(FIM): 6 Additional Goals: 1-Demonstrate ADL Tasks, 2-Verbalize Understanding, 3- ImproveStrength/Delmy 1=Demonstrate adherence to instructed precautions during ADL tasks. 2=Patient will verbalize/demonstrate understanding of assistive devices/ modifications for ADL. 3=Patient will improve strength/tolerance for activity to enable patient to perform ADL's. OT Education/Plan Discharge Recommendations Plan/Recommendations: Continue POC Treatment Plan/Plan of Care Patient would benefit from OT for education, treatment and training to promote independence in ADL's, mobility, safety and/or upper extremity function for ADL' s. Plan of Care: ADL Retraining, Caregiver Training, Cognitive Retraining, Functional Mobility, Group Exercise/Act as Ind, UE Funct Exercise/Act Treatment Duration: Feb 12, 2017 Visits Per Week: 10-12 Minutes/Day (M-F): 60-90 Minutes/Day (Sat/Gonzalez): prn Agreement: Yes Rehab Potential: Good Time/GCodes Start Time: 10:15 Stop Time: 10:45 Total Time Billed (hr/min): 30 Billed Treatment Time 1, visit, NMx2(30minutes) JOSSIE GALVEZ OT Jan 28, 2017 11:30
--- NOTE | 2017-01-28 11:45 | Physical Therapy Daily Note ---
PT Daily Note-Current Subjective Patient in wheelchair pre tx, agrees to PT, no complaints of pain. Appearance Patient in recliner post tx, has nurse call, phone, tray, all needs met. Mental Status Patient Orientation: Normal For Age Transfers Functional [place] Measure 0=Not Assessed/NA 4=Minimal Assistance 1=Total Assistance 5=Supervision or Setup 2=Maximal Assistance 6=Modified [place] 3=Moderate Assistance 7=Complete IndependenceIRFPAI Quality Coding Scale 6 Independent with activity with or without an assistive device 5 Patient requires set up or clean up by helper. Patient completes activity by themselves 4 Supervision or touching assist (CGA). [place] provide cues , steadying assist 3 The helper provides less than half the effort to complete the activity 2 The helper provides more than half the effort to complete the activity 1 Dependent. The helper does all the effort to complete an activity 7 Patient refused to complete or attempt activity 9 The patient did not perform the activity before the current illness or injury 88 Not attempted due to Medical conditions or safety concerns Transfers (B, C, W/C) (FIM): 4 Sit to/from Stand: 4 Bed to/from Chair: 4 stand pivot min assist to the right and CGA to the left, cues for safety and hand placement Gait Training Gait (FIM): 2 Distance: 100'x4 Gait Level of Assist: 4 Gait Persons Needed: 1 Gait Assistive Device: Cane Large Base Quad selvin wrap on right ankle for dorsiflexion assist, min assist for balance, right knee hyperextension, slow, cues for step length, poor right heel strike Exercises NuStep Minutes: 15 NuStep Workload: 5 Treatments transfers, ambulation, functional strengthening Assessment Current Status: Fair Progress increased patient ambulation today, patient was more fatigued on second and third walks but was able to complete without resting in the middle PT Short Term Goals Short Term Goals Time Frame: Feb 05, 2017 Transfers (B,C,W/C) (FIM): 4 Gait (FIM): 4 Distance (FIM): 3=150 ft Gait Assistive Device: Cane Large Base Quad Wheelchair Distance: 150'x2 Stairs (FIM): 2 # of Steps: 4 Stairs Level of Assist: 4 PT Nursing Home Goals Nursing Home Goals PT Supervisor Assembly Room Goals Time Frame: Feb 19, 2017 Transfers (B,C,W/C) (FIM): 6 Sit to Lying (QC): 6 Lying-Sitting on Side/Bed(QC): 6 Sit to Stand (QC): 6 Rollin Roll Left to Right (QC): 6 Chair/Yjq-hy-Cemsh Xfer(QC): 6 Car Transfer (QC): 6 Does the Patient Walk: Yes Gait (FIM): 5 (household) Gait distance (FIM): 0=711-17 ft Distance: 50 ft household Walk 10 feet (QC): 5 Walk 10ft-Uneven Surface(QC): 4 Walk 50ft with 2 Turns (QC): 5 Walk 150 ft (QC): 4 (asssit with this, CGA) Gait Assistive Device: Cane Large Base Quad Does the Pt use WC or Scooter?: Yes Wheelchair (FIM): 6 Wheelchair distance (FIM): 3=150 ft Wheel 50 feet with 2 turns (QC: 6 Stairs (FIM): 5 (household) # of Steps: 8 1 Step (curb) (QC): 5 4 Steps (QC): 5 12 Steps (QC): 5 Stairs Level Of Assist: 6 Picking up an Object (QC): 4 PT Plan Problem List Problem List: Activity Tolerance, Functional Strength, Safety, Balance, Gait, Transfer, Bed Mobility, ROM Treatment/Plan Treatment Plan: Continue Plan of Care Treatment Plan: Bed Mobility, Education, Functional Activity Delmy, Functional Strength, Group Therapy, Gait, Safety, Therapeutic Exercise, Transfers Treatment Duration: Feb 19, 2017 Visits Per Week: 10-*15 Minutes/Day (M-F): 60-90 Minutes/Day (Sat/Gonzalez): prn Safety Risks/Education Patient Education: Gait Training, Transfer Techniques, Safety Issues Teaching Recipient: Patient Teaching Methods: Demonstration, Discussion Response to Teaching: Reinforcement Needed Time/GCodes Time In: 1045 Time Out: 1145 Total Billed Treatment Time: 60 Total Billed Treatment 1 visit EX 15 min GT 45 min BROOKE WORLEY PT Jan 28, 2017 11:44
--- NOTE | 2017-01-28 17:12 | Physical Therapy Daily Note ---
PT Daily Note-Current Subjective Pt supine in bed with head up upon arrival. Pt agrees to PT. Pain Numeric Pain Scale: 2 Location: Left Location Body Site: Knee Pain Description: Ache Mental Status Patient Orientation: Person, Place, Time, Situation Transfers Functional [place] Measure 0=Not Assessed/NA 4=Minimal Assistance 1=Total Assistance 5=Supervision or Setup 2=Maximal Assistance 6=Modified [place] 3=Moderate Assistance 7=Complete IndependenceIRFPAI Quality Coding Scale 6 Independent with activity with or without an assistive device 5 Patient requires set up or clean up by helper. Patient completes activity by themselves 4 Supervision or touching assist (CGA). [place] provide cues , steadying assist 3 The helper provides less than half the effort to complete the activity 2 The helper provides more than half the effort to complete the activity 1 Dependent. The helper does all the effort to complete an activity 7 Patient refused to complete or attempt activity 9 The patient did not perform the activity before the current illness or injury 88 Not attempted due to Medical conditions or safety concerns Scootin Rollin Roll Left to Right (QC): 5 Supine to/from Sit: 4 Sit to/from Stand: 4 Sit to Lying (QC): 5 Sit to Stand (QC): 4 Chair/Qjq-wm-Xavop Xfer(QC): 4 Bed to/from Chair: 4 Gait Training Does the Patient Walk?: Yes Gait (FIM): 2 Distance (FIM): 1=up to 49 ft Distance: 20' Walk 10 feet (QC): 3 Walk 50 ft with 2 Turns(QC): 88 Walk 150 ft (QC): 88 Gait Level of Assist: 3 Gait Persons Needed: 1 Gait Assistive Device: Cane Large Base Quad Pt was very weak and fatigued this afternoon. Pt required Mod A during ambulation. Wheelchair Training Does the Pt Use a Wheelchair?: Yes Wheelchair Distance: 0=350-96 ft Distance: 100' Wheelchair Level of Assist: 5 Wheel 50 ft with 2 turns (QC): 5 Type of Wheelchair: Manual Pt is pretty independent with [facility] mobility just needing occasional assistance with mobility through doorways. Pt uses foot pedal for R foot. Exercises NuStep Minutes: 12 NuStep Workload: 5 Assessment Current Status: Poor Progress Pt reports that he was very weak/fatigued in his BLE th afternoon. Pt feels he is better earlier in the day when not fatigued. Pt had 2 LOB events when transferring to [facility] and again after ambulation. Pt and PT were able to get pt back to [facility] in both cases. PT Short Term Goals Short Term Goals Time Frame: Feb 05, 2017 Transfers (B,C,W/C) (FIM): 4 Gait (FIM): 4 Distance (FIM): 3=150 ft Gait Assistive Device: Cane Large Base Quad Wheelchair Distance: 150'x2 Stairs (FIM): 2 # of Steps: 4 Stairs Level of Assist: 4 PT Carton Inspector Goals Carton Inspector Goals PT Senior Living Goals Time Frame: Feb 19, 2017 Transfers (B,C,W/C) (FIM): 6 Sit to Lying (QC): 6 Lying-Sitting on Side/Bed(QC): 6 Sit to Stand (QC): 6 Rollin Roll Left to Right (QC): 6 Chair/Yuy-bv-Rplqa Xfer(QC): 6 Car Transfer (QC): 6 Does the Patient Walk: Yes Gait (FIM): 5 (household) Gait distance (FIM): 8=906-11 ft Distance: 50 ft household Walk 10 feet (QC): 5 Walk 10ft-Uneven Surface(QC): 4 Walk 50ft with 2 Turns (QC): 5 Walk 150 ft (QC): 4 (asssit with this, CGA) Gait Assistive Device: Cane Large Base Quad Does the Pt use WC or Scooter?: Yes Wheelchair (FIM): 6 Wheelchair distance (FIM): 3=150 ft Wheel 50 feet with 2 turns (QC: 6 Stairs (FIM): 5 (household) # of Steps: 8 1 Step (curb) (QC): 5 4 Steps (QC): 5 12 Steps (QC): 5 Stairs Level Of Assist: 6 Picking up an Object (QC): 4 PT Plan Problem List Problem List: Activity Tolerance, Functional Strength, Safety, Balance, Gait, Transfer Treatment/Plan Treatment Plan: Continue Plan of Care Treatment Plan: Bed Mobility, Education, Functional Activity Delmy, Functional Strength, Group Therapy, Gait, Safety, Therapeutic Exercise, Transfers Treatment Duration: Feb 19, 2017 Visits Per Week: 10-*15 Minutes/Day (M-F): 60-90 Minutes/Day (Sat/Gonzalez): prn Safety Risks/Education Patient Education: Gait Training, Transfer Techniques, Correct Positioning, Safety Issues Teaching Recipient: Patient Teaching Methods: Discussion Response to Teaching: Verbalize Understanding Time/GCodes Time In: 1550 Time Out: 1620 Total Billed Treatment Time: 30 Total Billed Treatment visit, EX (15m) & GT (15m) CATHERINE WHITEHEAD PTA Jan 28, 2017 17:12
[2017-01-28] MEDS: ATORVASTATIN 40 MG (LIPITOR) TABLET PO SCH (21:00)
[2017-01-28] MEDS: inSUlin DETERMIR 1 UNIT/0.01 ML (LEVEMIR) CHARGE PER UNIT SQ SCH (21:02)
[2017-01-29] MEDS: hydrALAZINE (APRESOLINE) 25 MG TAB PO SCH ×3 (05:50→21:04)
[2017-01-29] MEDS: inSUlin ASPART (NovoLOG) 1 UNIT/0.01 ML (CHARGE PER UNIT) SC SCH ×4 (05:53→21:00)
[2017-01-29 06:00] VITALS: BP 167/86
--- NOTE | 2017-01-29 08:36 | Physical Therapy Daily Note ---
PT Daily Note-Current Subjective Pt denies pain. Pt agreeable. Mental Status Patient Orientation: Person, Place, Situation Transfers Functional [place] Measure 0=Not Assessed/NA 4=Minimal Assistance 1=Total Assistance 5=Supervision or Setup 2=Maximal Assistance 6=Modified [place] 3=Moderate Assistance 7=Complete IndependenceIRFPAI Quality Coding Scale 6 Independent with activity with or without an assistive device 5 Patient requires set up or clean up by helper. Patient completes activity by themselves 4 Supervision or touching assist (CGA). [place] provide cues , steadying assist 3 The helper provides less than half the effort to complete the activity 2 The helper provides more than half the effort to complete the activity 1 Dependent. The helper does all the effort to complete an activity 7 Patient refused to complete or attempt activity 9 The patient did not perform the activity before the current illness or injury 88 Not attempted due to Medical conditions or safety concerns Min A for upper body during Supine -> EOB transfer. Pt CGA for sit to stand transfers. Pt remote dropped on the floor on the R side of his chair. Pt was SBA for reaching with L UE to floor from seated position to retrieve remote. Balance during standing good as pt lifted (R) foot off floor for tech to fix his sock. Gait Training Gait Assistive Device: Cane Small Base Quad Pt amb with Min A and vc's at times for (R) LE placement and wide BRANDI. Pt amb with 2 x 50ft. Exercises Seated Therapy Exercises: Long arc quads, Hip flexion Seated Reps: 20 Assessment Current Status: Good Progress Pt demonstrated good balance throughout gait training. Pt back to chair and all needs met. PT Short Term Goals Short Term Goals Time Frame: Feb 05, 2017 Transfers (B,C,W/C) (FIM): 4 Gait (FIM): 4 Distance (FIM): 3=150 ft Gait Assistive Device: Cane Large Base Quad Wheelchair Distance: 100' Stairs (FIM): 2 # of Steps: 4 Stairs Level of Assist: 4 PT Chinese Language Professor Goals Prison Goals PT Chinese Language Professor Goals Time Frame: Feb 19, 2017 Transfers (B,C,W/C) (FIM): 6 Sit to Lying (QC): 6 Lying-Sitting on Side/Bed(QC): 6 Sit to Stand (QC): 6 Rollin Roll Left to Right (QC): 6 Chair/Vbp-wo-Qcasn Xfer(QC): 6 Car Transfer (QC): 6 Does the Patient Walk: Yes Gait (FIM): 5 (household) Gait distance (FIM): 4=391-62 ft Distance: 50 ft household Walk 10 feet (QC): 5 Walk 10ft-Uneven Surface(QC): 4 Walk 50ft with 2 Turns (QC): 5 Walk 150 ft (QC): 4 (asssit with this, CGA) Gait Assistive Device: Cane Large Base Quad Does the Pt use WC or Scooter?: Yes Wheelchair (FIM): 6 Wheelchair distance (FIM): 3=150 ft Wheel 50 feet with 2 turns (QC: 6 Stairs (FIM): 5 (household) # of Steps: 8 1 Step (curb) (QC): 5 4 Steps (QC): 5 12 Steps (QC): 5 Stairs Level Of Assist: 6 Picking up an Object (QC): 4 PT Plan Treatment/Plan Treatment Plan: Continue Plan of Care Treatment Plan: Bed Mobility, Education, Functional Activity Delmy, Functional Strength, Group Therapy, Gait, Safety, Therapeutic Exercise, Transfers Treatment Duration: Feb 19, 2017 Visits Per Week: 10-*15 Minutes/Day (M-F): 60-90 Minutes/Day (Sat/Gonzalez): prn Time/GCodes Time In: 815 Time Out: 840 Total Billed Treatment Time: 25 Total Billed Treatment 1, gait 15min, ther ex 10min RAE LYONS Jan 29, 2017 08:36
[2017-01-29] MEDS: HYDROCHLOROTHIAZIDE 25 MG (HCTZ) TAB PO SCH (08:58)
[2017-01-29] MEDS: SENNA W/DOCUSATE (SENOKOT S) TABLET PO SCH ×2 (08:58→21:04)
[2017-01-29] MEDS: meTOprolol TARTRATE 25 MG (LOPRESSOR) TABLET PO SCH ×2 (08:58→21:04)
[2017-01-29] MEDS: ASPIRIN 325 MG (5 GR) TABLET PO SCH (08:58)
[2017-01-29] MEDS: amLODIPine 5 MG (NORVASC) TAB PO SCH (08:58)
--- NOTE | 2017-01-29 11:18 | Occupational Ther Daily Note ---
OT Current Status-Daily Note Subjective Pt seen in room, in bed, agreeable to OT. No pain mentioned. Appearance Alert, cooperative Mental Status/Objective Functional [place] Measure 0=Not Assessed/NA 4=Minimal Assistance 1=Total Assistance 5=Supervision or Setup 2=Maximal Assistance 6=Modified [place] 3=Moderate Assistance 7=Complete [place] ADL-Treatment Pt needed min assist to move from supine to sit EOB, getting up toward his R side. He was unable to use R arm to assist with pushing up. Sitting balance good during ADLs except he lost his balance x2 toward R side when putting pants on L leg (weight supported on R hip). R arm positioned by OT to weight bear at his side when putting pants on and he was able to get pants on without falling over. Pt washed face and hands, combed hair, brushed teeth with setup. He was able to place toothbrush in R hand to stabilize it to put toothpaste on brush and to remove and reapply cap. Pt washed and dried chest, R arm, marta and bottom , thighs, sitting EOB, with setup and assist to wash L arm. Some skilled cues needed for thoroughness. Pt donned t-shirt with SBA, recalling modified techniques. Min assist needed with sit to stand but pt was able to pull his shorts up. Pt walked min assist to recliner to groom, with quad cane. Skilled facilitation for placement R arm to assist with sit to stand and stand to sit. Pt education on purpose of positioning arm to facilitate functional movement. Pt demonstrated some active R shoulder and elbow movement during bathing and dressing but did not have enough R finger flexion to hold washcloth to assist with bathing. Pt left up in recliner, all needs met. Functional [place] Measure 0=Not Assessed/NA 4=Minimal Assistance 1=Total Assistance 5=Supervision or Setup 2=Maximal Assistance 6=Modified [place] 3=Moderate Assistance 7=Complete IndependenceIRFPAI Quality Coding Scale 6 Independent with activity with or without an assistive device 5 Patient requires set up or clean up by helper. Patient completes activity by themselves 4 Supervision or touching assist (CGA). [place] provide cues , steadying assist 3 The helper provides less than half the effort to complete the activity 2 The helper provides more than half the effort to complete the activity 1 Dependent. The helper does all the effort to complete an activity 7 Patient refused to complete or attempt activity 9 The patient did not perform the activity before the current illness or injury 88 Not attempted due to Medical conditions or safety concerns Grooming (FIM): 5 Upper Body (FIM): 5 Lower Body Dressing (FIM): 4 Transfers (B, C, W/C) (FIM): 4 Education OT Patient Education: Modified ADL techniques, Purpose of tx/functional activities, Transfer techniques, Other (facilitation techniques) Teaching Recipient: Patient Teaching Methods: Discussion Response to Teaching: Verbalize Understanding OT Short Term Goals Short Term Goals Time Frame: Jan 29, 2017 Eating(FIM): 5 Grooming(FIM): 5 Bathing(FIM): 4 Upper Body Dressing(FIM): 4 Lower Body Dressing(FIM): 4 Toileting(FIM): 4 Transfers (B,C,W/C) (FIM): 4 Toilet/Commode Transfer(FIM): 4 Shower Transfer(FIM): 4 Additional Short Term Goals: 1-Demonstrate ADL Tasks, 2-Verbalize Understanding , 3-ImproveStrength/Delmy 1=Demonstrate adherence to instructed precautions during ADL tasks. 2=Patient will verbalize/demonstrate understanding of assistive devices/ modifications for ADL. 3=Patient will improve strength/tolerance for activity to enable patient to perform ADL's. OT Devil Tender Goals Devil Tender Goals Time Frame: Feb 12, 2017 Eating (FIM): 6 Eating (QC): 6 Groomin Oral Hygiene (QC): 6 Bathing(FIM): 5 Shower/Bathe Self (QC): 5 Upper Body Dressing(FIM): 6 Upper Body Dressing (QC): 6 Lower Body Dressing(FIM): 6 Lower Body Dressing (QC): 6 On/Off Footwear (QC): 6 Toileting(FIM): 6 Toileting Hygiene (QC): 6 Transfers (B,C,W/C) (FIM): 6 Toilet/Commode Transfer(FIM): 6 Toilet/Commode Transfer (QC): 6 Shower Transfer(FIM): 6 Additional Goals: 1-Demonstrate ADL Tasks, 2-Verbalize Understanding, 3- ImproveStrength/Delmy 1=Demonstrate adherence to instructed precautions during ADL tasks. 2=Patient will verbalize/demonstrate understanding of assistive devices/ modifications for ADL. 3=Patient will improve strength/tolerance for activity to enable patient to perform ADL's. OT Education/Plan Discharge Recommendations Plan/Recommendations: Continue POC Treatment Plan/Plan of Care Patient would benefit from OT for education, treatment and training to promote independence in ADL's, mobility, safety and/or upper extremity function for ADL' s. Plan of Care: ADL Retraining, Caregiver Training, Cognitive Retraining, Functional Mobility, Group Exercise/Act as Ind, UE Funct Exercise/Act Treatment Duration: Feb 12, 2017 Visits Per Week: 10-12 Minutes/Day (M-F): 60-90 Minutes/Day (Sat/Gonzalez): prn Agreement: Yes Rehab Potential: Good Time/GCodes Start Time: 10:05 Stop Time: 10:40 Total Time Billed (hr/min): 35 Billed Treatment Time visit, 35 minutes ADL BRUCE PRADHAN OT Jan 29, 2017 11:18
[2017-01-29 14:24] VITALS: BP 158/84
[2017-01-29 18:18] VITALS: BP 166/88
[2017-01-29] MEDS: ATORVASTATIN 40 MG (LIPITOR) TABLET PO SCH (21:04)
[2017-01-29] MEDS: inSUlin DETERMIR 1 UNIT/0.01 ML (LEVEMIR) CHARGE PER UNIT SQ SCH (21:05)
[2017-01-30 05:17] VITALS: BP 136/66
[2017-01-30] MEDS: inSUlin ASPART (NovoLOG) 1 UNIT/0.01 ML (CHARGE PER UNIT) SC SCH ×4 (05:22→21:00)
[2017-01-30] MEDS: hydrALAZINE (APRESOLINE) 25 MG TAB PO SCH ×3 (06:25→21:23)
[2017-01-30] MEDS: SENNA W/DOCUSATE (SENOKOT S) TABLET PO SCH ×2 (09:15→21:23)
[2017-01-30] MEDS: ASPIRIN 325 MG (5 GR) TABLET PO SCH (09:15)
[2017-01-30] MEDS: HYDROCHLOROTHIAZIDE 25 MG (HCTZ) TAB PO SCH (09:16)
[2017-01-30] MEDS: meTOprolol TARTRATE 25 MG (LOPRESSOR) TABLET PO SCH ×2 (09:16→21:23)
[2017-01-30] MEDS: amLODIPine 5 MG (NORVASC) TAB PO SCH (09:16)
[2017-01-30 18:32] VITALS: BP 144/74
[2017-01-30] MEDS: inSUlin DETERMIR 1 UNIT/0.01 ML (LEVEMIR) CHARGE PER UNIT SQ SCH (21:23)
[2017-01-30] MEDS: ATORVASTATIN 40 MG (LIPITOR) TABLET PO SCH (21:23)
[2017-01-31 05:06] VITALS: BP 134/73
[2017-01-31] MEDS: inSUlin ASPART (NovoLOG) 1 UNIT/0.01 ML (CHARGE PER UNIT) SC SCH ×4 (06:00→21:00)
[2017-01-31] MEDS: hydrALAZINE (APRESOLINE) 25 MG TAB PO SCH ×3 (06:12→21:13)
--- NOTE | 2017-01-31 08:00 | Progress Note (SOAP) ---
Subjective Subjective/Events-last exam CVA. Hypertension. Patient work in progress. Objective Exam Vital Signs Date Time Temp Pulse Resp B/P Pulse Ox O2 Delivery O2 Flow Rate FiO2 01/31/17 05:06 97.5 60 18 134/73 96 Room Air 01/30/17 20:10 Room Air 01/30/17 18:32 98.3 59 14 144/74 97 01/30/17 09:00 Room Air I & O 01/31/17 07:00 Intake Total 600 ml Output Total 1150 ml Balance -550 ml Capillary Refill : General Appearance: No Apparent Distress WD/WN HEENT: Normal ENT Inspection Neck: Normal Inspection Respiratory: Chest Non Tender Lungs Clear Normal Breath Sounds No Accessory Muscle Use No Respiratory Distress Cardiovascular: Regular Rate, Rhythm No Murmur Gastrointestinal: non tender soft Results Lab Laboratory Tests 01/30/17 11:05: Glucometer 144H 01/30/17 15:43: Glucometer 136H 01/30/17 21:22: Glucometer 116H 01/31/17 06:13: Glucometer 120H Assessment/Plan Assessment/Plan Assess & Plan/Chief Complaint CVA on right. Hypertension. Diabetes. Patient when asked questions has a slow thought process. Patient unable to fern picker right hand. Patient does move his right leg. . 01/24/17. CVA on right. Hypertension. Diabetes. Patient is improving. Patient positive. . 01/25/17. CVA on right. Hypertension. HCTZ added. Patient moving right extremities better. Patient improving. . 01/26/17 CVA Hypertension Patient moving left extremities better. Patient improving. Blood pressure better today than yesterday. . 3/Touche last . CVA on right. Hypertension. Diabetes. Control. Patient talking better. . 01/28/17. CVA on right. Hypertension. Diabetes. Patient continues to improve slowly. . 01/31/17. CVA on right. Hypertension better. Sugars good. Positive to do PT and OT. Clinical Quality Measures DVT/VTE Risk/Contraindication: Risk Factor Score Per Nursin RFS Level Per Nursing on Admit: 4+=Very High BENJY SANTANA DO Jan 31, 2017 08:00
--- NOTE | 2017-01-31 08:45 | Physical Therapy Daily Note ---
PT Daily Note-Current Subjective Patient in bed pre tx, will need to get dressed. Pain Numeric Pain Scale: 0-No Pain Appearance Patient in wheelchair post tx, has ST right after PT. Mental Status Patient Orientation: Person, Place, Situation Transfers Functional [place] Measure 0=Not Assessed/NA 4=Minimal Assistance 1=Total Assistance 5=Supervision or Setup 2=Maximal Assistance 6=Modified [place] 3=Moderate Assistance 7=Complete IndependenceIRFPAI Quality Coding Scale 6 Independent with activity with or without an assistive device 5 Patient requires set up or clean up by helper. Patient completes activity by themselves 4 Supervision or touching assist (CGA). [place] provide cues , steadying assist 3 The helper provides less than half the effort to complete the activity 2 The helper provides more than half the effort to complete the activity 1 Dependent. The helper does all the effort to complete an activity 7 Patient refused to complete or attempt activity 9 The patient did not perform the activity before the current illness or injury 88 Not attempted due to Medical conditions or safety concerns Transfers (B, C, W/C) (FIM): 4 Scootin Rollin Supine to/from Sit: 5 Sit to/from Stand: 4 Bed to/from Chair: 4 Patient can perform supine to sit with SBA, it is difficult but he can do it by himself. Patient performs a stand pivot transfer with CGA to the left and min assist to the right. Wheelchair Training Wheelchair (FIM): 6 Distance: 150'x2 Type of Wheelchair: Manual Exercises Standing: Hip Abduction, Mini squats, Step-ups Standing Reps: 10 NuStep Minutes: 15 NuStep Workload: 5 Treatments functional strengthening, bed mobility and transfers, patient was dressed both upper and lower body Assessment Current Status: Fair Progress improving strength and endurance PT Short Term Goals Short Term Goals Time Frame: Feb 05, 2017 Transfers (B,C,W/C) (FIM): 4 Gait (FIM): 4 Distance (FIM): 3=150 ft Gait Assistive Device: Cane Large Base Quad Wheelchair Distance: 100' Stairs (FIM): 2 # of Steps: 4 Stairs Level of Assist: 4 PT Printmaker Goals Long-Term Goals PT Long-Term Goals Time Frame: Feb 19, 2017 Transfers (B,C,W/C) (FIM): 6 Sit to Lying (QC): 6 Lying-Sitting on Side/Bed(QC): 6 Sit to Stand (QC): 6 Rollin Roll Left to Right (QC): 6 Chair/Upt-tg-Ijvqo Xfer(QC): 6 Car Transfer (QC): 6 Does the Patient Walk: Yes Gait (FIM): 5 (household) Gait distance (FIM): 3=708-95 ft Distance: 50 ft household Walk 10 feet (QC): 5 Walk 10ft-Uneven Surface(QC): 4 Walk 50ft with 2 Turns (QC): 5 Walk 150 ft (QC): 4 (asssit with this, CGA) Gait Assistive Device: Cane Large Base Quad Does the Pt use WC or Scooter?: Yes Wheelchair (FIM): 6 Wheelchair distance (FIM): 3=150 ft Wheel 50 feet with 2 turns (QC: 6 Stairs (FIM): 5 (household) # of Steps: 8 1 Step (curb) (QC): 5 4 Steps (QC): 5 12 Steps (QC): 5 Stairs Level Of Assist: 6 Picking up an Object (QC): 4 PT Plan Problem List Problem List: Activity Tolerance, Functional Strength, Safety, Balance, Gait, Transfer, Bed Mobility, ROM Treatment/Plan Treatment Plan: Continue Plan of Care Treatment Plan: Bed Mobility, Education, Functional Activity Delmy, Functional Strength, Group Therapy, Gait, Safety, Therapeutic Exercise, Transfers Treatment Duration: Feb 19, 2017 Visits Per Week: 10-*15 Minutes/Day (M-F): 60-90 Minutes/Day (Sat/Gonzalez): prn Safety Risks/Education Patient Education: Transfer Techniques, Correct Positioning, W/C Management, Safety Issues Teaching Recipient: Patient Teaching Methods: Demonstration, Discussion Response to Teaching: Reinforcement Needed Time/GCodes Time In: 800 Time Out: 845 Total Billed Treatment Time: 60 Total Billed Treatment 1 visit [facility] 10 min EX 35 min BROOKE WORLEY PT Jan 31, 2017 08:45
[2017-01-31] MEDS: meTOprolol TARTRATE 25 MG (LOPRESSOR) TABLET PO SCH ×2 (09:16→21:13)
[2017-01-31] MEDS: HYDROCHLOROTHIAZIDE 25 MG (HCTZ) TAB PO SCH (09:16)
[2017-01-31] MEDS: amLODIPine 5 MG (NORVASC) TAB PO SCH (09:16)
[2017-01-31] MEDS: ASPIRIN 325 MG (5 GR) TABLET PO SCH (09:16)
[2017-01-31] MEDS: SENNA W/DOCUSATE (SENOKOT S) TABLET PO SCH ×2 (09:16→21:13)
--- NOTE | 2017-01-31 09:17 | Speech Therapy Daily Note ---
Speech Daily Progress Note Subjective The patient was sitting upright in wheelchair upon entrance. The patient greeted the clinician appropriately and agreed to participate in the speech and language treatment session on this date. Objective Word-Finding: The patient was provided a specific category and asked to provide three items that would fit into the provided category. The patient demonstrated moderate difficulty with this task, requiring intermittent moderate to maximum cueing to provide one item for each category. The patient does demonstrate frustration and awareness of his word-finding difficulty which does appear to decline his language function throughout the session. Following the initial task , the patient was provided three words and asked to provide the category and an additional word that fit into the category. The patient demonstrated mildly to moderate difficulty with this task, displaying 70% accuracy with moderate clinician cueing. Assessment Assessment Current Status: Fair Progress Treatment Plan Continue Plan of Care Communication Comprehension: 4 Expression: 3 Social Cognition Social Interaction: 5 Problem Solvin Memory: 5 Speech Short Term Goals Short Term Goals Short Term Goals 1. The patient will demonstrated 80% accuracy throughout structured word- finding tasks, independently. 2. The patient will recall and demonstrate two functional memory strategies for use at home, independently. Time Frame-STG: Two Weeks Speech Other Sports Official Goals Residential Goals 1. The patient will demonstrated improved expressive communication and cognitive skills for increased function and safety with ADL's. Time Frame: Four Weeks Speech-Plan Treatment Plan Speech Therapy Treatment Plan: Continue Plan of Care Continue skilled speech therapy to target expressive communication. Treatment Duration: Feb 21, 2017 # of days/week Four to five. Visits Per Week: Four to five. Minutes/Day (M-F): 30-45 Rehab Potential: Good Safety Risks/Education Teaching Recipient: Patient Teaching Methods: Demonstration, Discussion Response to Teaching: Verbalize Understanding, Return Demonstration, Reinforcement Needed Education Topics Provided: Word-Finding Strategies Time Speech Therapy Time In: 08:45 Speech Therapy Time Out: 09:15 Total Billed Time: 30 Billed Treatment Time 1DAHLIA ELIZABETH ST Jan 31, 2017 09:17
--- NOTE | 2017-01-31 11:18 | Occupational Ther Daily Note ---
OT Current Status-Daily Note Subjective Pt sitting in w/c, agrees to treatment. Pt has no c/o pain, but reports fatigue today. Mental Status/Objective Functional [place] Measure 0=Not Assessed/NA 4=Minimal Assistance 1=Total Assistance 5=Supervision or Setup 2=Maximal Assistance 6=Modified [place] 3=Moderate Assistance 7=Complete [place] ADL-Treatment Pt states he had a shower yesterday, declined bathing today. Pt is already dressed. Pt practiced doffing/donning socks. Pt able to doff socks with SBA. Pt donned left sock with supervision. Pt has some difficulty donning right sock, but is able to complete task without assistance. Pt demonstrates increased speed from previous session. Functional [place] Measure 0=Not Assessed/NA 4=Minimal Assistance 1=Total Assistance 5=Supervision or Setup 2=Maximal Assistance 6=Modified [place] 3=Moderate Assistance 7=Complete IndependenceIRFPAI Quality Coding Scale 6 Independent with activity with or without an assistive device 5 Patient requires set up or clean up by helper. Patient completes activity by themselves 4 Supervision or touching assist (CGA). [place] provide cues , steadying assist 3 The helper provides less than half the effort to complete the activity 2 The helper provides more than half the effort to complete the activity 1 Dependent. The helper does all the effort to complete an activity 7 Patient refused to complete or attempt activity 9 The patient did not perform the activity before the current illness or injury 88 Not attempted due to Medical conditions or safety concerns Other Treatment Pt transferred w/c to EOB with minimal assistance to right side. Weight bearing completed through right UE while seated EOB. Assist is required to maintain elbow extension and proper posture. Pt able to weight shift side to side and does not have any LOB. Right UE ROM exercises completed to promote increased ROM and active movement. Pt demonstrates minimal active shoulder elevation, scapular retraction, shoulder abduction, and elbow flexion. Pt fatigues very quickly with activity and requires frequent rest breaks during exercises. Cues required for breathing as pt tends to hold breath. PROM completed at forearm, wrist, and hand. Pt demonstrates trace finger flexion. Arm skate was used for elbow flex/ext movements. Pt able to perform minimal active elbow flexion. Pt transferred to bed after session with minimal assistance. Pt able to perform sit to supine with SBA. Pt in bed with needs met after session. OT Short Term Goals Short Term Goals Time Frame: Jan 29, 2017 Eating(FIM): 5 Grooming(FIM): 5 Bathing(FIM): 4 Upper Body Dressing(FIM): 4 Lower Body Dressing(FIM): 4 Toileting(FIM): 4 Transfers (B,C,W/C) (FIM): 4 Toilet/Commode Transfer(FIM): 4 Shower Transfer(FIM): 4 Additional Short Term Goals: 1-Demonstrate ADL Tasks, 2-Verbalize Understanding , 3-ImproveStrength/Delmy 1=Demonstrate adherence to instructed precautions during ADL tasks. 2=Patient will verbalize/demonstrate understanding of assistive devices/ modifications for ADL. 3=Patient will improve strength/tolerance for activity to enable patient to perform ADL's. OT Con[employer] Mason Goals Correction Goals Time Frame: Feb 12, 2017 Eating (FIM): 6 Eating (QC): 6 Groomin Oral Hygiene (QC): 6 Bathing(FIM): 5 Shower/Bathe Self (QC): 5 Upper Body Dressing(FIM): 6 Upper Body Dressing (QC): 6 Lower Body Dressing(FIM): 6 Lower Body Dressing (QC): 6 On/Off Footwear (QC): 6 Toileting(FIM): 6 Toileting Hygiene (QC): 6 Transfers (B,C,W/C) (FIM): 6 Toilet/Commode Transfer(FIM): 6 Toilet/Commode Transfer (QC): 6 Shower Transfer(FIM): 6 Additional Goals: 1-Demonstrate ADL Tasks, 2-Verbalize Understanding, 3- ImproveStrength/Delmy 1=Demonstrate adherence to instructed precautions during ADL tasks. 2=Patient will verbalize/demonstrate understanding of assistive devices/ modifications for ADL. 3=Patient will improve strength/tolerance for activity to enable patient to perform ADL's. OT Education/Plan Discharge Recommendations Plan/Recommendations: Continue POC Treatment Plan/Plan of Care Patient would benefit from OT for education, treatment and training to promote independence in ADL's, mobility, safety and/or upper extremity function for ADL' s. Plan of Care: ADL Retraining, Caregiver Training, Cognitive Retraining, Functional Mobility, Group Exercise/Act as Ind, UE Funct Exercise/Act Treatment Duration: Feb 12, 2017 Visits Per Week: 10-12 Minutes/Day (M-F): 60-90 Minutes/Day (Sat/Gonzalez): prn Agreement: Yes Rehab Potential: Good Time/GCodes Start Time: 09:15 Stop Time: 10:15 Total Time Billed (hr/min): 60 Billed Treatment Time 1 visit, ADL(15minutes), NMx3(45minutes) JOSSIE GALVEZ OT Jan 31, 2017 11:18
--- NOTE | 2017-01-31 12:01 | Occupational Ther Daily Note ---
OT Current Status-Daily Note Subjective Pt in bed, agrees to treatment. Mental Status/Objective Functional [place] Measure 0=Not Assessed/NA 4=Minimal Assistance 1=Total Assistance 5=Supervision or Setup 2=Maximal Assistance 6=Modified [place] 3=Moderate Assistance 7=Complete [place] ADL-Treatment Pt's meal tray arrives at end of session. Assist required to open packages/ containers. Pt then able to feed self Functional [place] Measure 0=Not Assessed/NA 4=Minimal Assistance 1=Total Assistance 5=Supervision or Setup 2=Maximal Assistance 6=Modified [place] 3=Moderate Assistance 7=Complete IndependenceIRFPAI Quality Coding Scale 6 Independent with activity with or without an assistive device 5 Patient requires set up or clean up by helper. Patient completes activity by themselves 4 Supervision or touching assist (CGA). [place] provide cues , steadying assist 3 The helper provides less than half the effort to complete the activity 2 The helper provides more than half the effort to complete the activity 1 Dependent. The helper does all the effort to complete an activity 7 Patient refused to complete or attempt activity 9 The patient did not perform the activity before the current illness or injury 88 Not attempted due to Medical conditions or safety concerns Eating (FIM): 5 Other Treatment Supine to sit with SBA. Pt practiced transfers EOB<-> w/c x5 trials to increase safety during transfers. Pt required minimal assistance for transfers. Pt fatigues with activity and requires rest breaks between trials. W/c mobility to/ from therapy gym. Pt performed left UE exercises to increase strength needed for transfers and ADLs. Pt completed shoulder flexion, abduction,forward press, biceps curls, and triceps extension exercises x20 reps with 2# weight. Rest breaks between exercises. Pt returned to room and transferred to recliner chair with minimal assistance. Pt in chair with needs met, eating lunch after session. OT Short Term Goals Short Term Goals Time Frame: Jan 29, 2017 Eating(FIM): 5 Grooming(FIM): 5 Bathing(FIM): 4 Upper Body Dressing(FIM): 4 Lower Body Dressing(FIM): 4 Toileting(FIM): 4 Transfers (B,C,W/C) (FIM): 4 Toilet/Commode Transfer(FIM): 4 Shower Transfer(FIM): 4 Additional Short Term Goals: 1-Demonstrate ADL Tasks, 2-Verbalize Understanding , 3-ImproveStrength/Delmy 1=Demonstrate adherence to instructed precautions during ADL tasks. 2=Patient will verbalize/demonstrate understanding of assistive devices/ modifications for ADL. 3=Patient will improve strength/tolerance for activity to enable patient to perform ADL's. OT Correction Goals Correction Goals Time Frame: Feb 12, 2017 Eating (FIM): 6 Eating (QC): 6 Groomin Oral Hygiene (QC): 6 Bathing(FIM): 5 Shower/Bathe Self (QC): 5 Upper Body Dressing(FIM): 6 Upper Body Dressing (QC): 6 Lower Body Dressing(FIM): 6 Lower Body Dressing (QC): 6 On/Off Footwear (QC): 6 Toileting(FIM): 6 Toileting Hygiene (QC): 6 Transfers (B,C,W/C) (FIM): 6 Toilet/Commode Transfer(FIM): 6 Toilet/Commode Transfer (QC): 6 Shower Transfer(FIM): 6 Additional Goals: 1-Demonstrate ADL Tasks, 2-Verbalize Understanding, 3- ImproveStrength/Delmy 1=Demonstrate adherence to instructed precautions during ADL tasks. 2=Patient will verbalize/demonstrate understanding of assistive devices/ modifications for ADL. 3=Patient will improve strength/tolerance for activity to enable patient to perform ADL's. OT Education/Plan Discharge Recommendations Plan/Recommendations: Continue POC Treatment Plan/Plan of Care Patient would benefit from OT for education, treatment and training to promote independence in ADL's, mobility, safety and/or upper extremity function for ADL' s. Plan of Care: ADL Retraining, Caregiver Training, Cognitive Retraining, Functional Mobility, Group Exercise/Act as Ind, UE Funct Exercise/Act Treatment Duration: Feb 12, 2017 Visits Per Week: 10-12 Minutes/Day (M-F): 60-90 Minutes/Day (Sat/Gonzalez): prn Agreement: Yes Rehab Potential: Good Time/GCodes Start Time: 11:30 Stop Time: 11:55 Total Time Billed (hr/min): 25 Billed Treatment Time 1 visit, EX(15minutes), FA(10minutes) JOSSIE GALVEZ OT Jan 31, 2017 12:01
--- NOTE | 2017-01-31 14:40 | Physical Therapy Daily Note ---
PT Daily Note-Current Subjective Patient in recliner pre tx, agrees to PT. Patient has no complaints of pain. Appearance Patient in wheelchair in his room post tx, has nurse call, phone, tray, all needs met. Mental Status Patient Orientation: Normal For Age Transfers Functional [place] Measure 0=Not Assessed/NA 4=Minimal Assistance 1=Total Assistance 5=Supervision or Setup 2=Maximal Assistance 6=Modified [place] 3=Moderate Assistance 7=Complete IndependenceIRFPAI Quality Coding Scale 6 Independent with activity with or without an assistive device 5 Patient requires set up or clean up by helper. Patient completes activity by themselves 4 Supervision or touching assist (CGA). [place] provide cues , steadying assist 3 The helper provides less than half the effort to complete the activity 2 The helper provides more than half the effort to complete the activity 1 Dependent. The helper does all the effort to complete an activity 7 Patient refused to complete or attempt activity 9 The patient did not perform the activity before the current illness or injury 88 Not attempted due to Medical conditions or safety concerns Transfers (B, C, W/C) (FIM): 4 Sit to/from Stand: 4 Bed to/from Chair: 4 Patient needs occasional cues for hand placement when standing or sitting, stand pivot with min assist to the right and CGA to the left. Gait Training Gait (FIM): 2 Distance: 100'x3 Gait Level of Assist: 4 Gait Persons Needed: 1 Gait Assistive Device: Cane Large Base Quad right selvin wrap on ankle for dorsiflexion assist, min assist for balance Treatments transfers, ambulation Assessment Current Status: Fair Progress slowly improving endurance and gait PT Short Term Goals Short Term Goals Time Frame: Feb 05, 2017 Transfers (B,C,W/C) (FIM): 4 Gait (FIM): 4 Distance (FIM): 3=150 ft Gait Assistive Device: Cane Large Base Quad Wheelchair Distance: 150'x2 Stairs (FIM): 2 # of Steps: 4 Stairs Level of Assist: 4 PT Fdc Goals Fdc Goals PT Fdc Goals Time Frame: Feb 19, 2017 Transfers (B,C,W/C) (FIM): 6 Sit to Lying (QC): 6 Lying-Sitting on Side/Bed(QC): 6 Sit to Stand (QC): 6 Rollin Roll Left to Right (QC): 6 Chair/Wry-bm-Nvrqb Xfer(QC): 6 Car Transfer (QC): 6 Does the Patient Walk: Yes Gait (FIM): 5 (household) Gait distance (FIM): 6=258-39 ft Distance: 50 ft household Walk 10 feet (QC): 5 Walk 10ft-Uneven Surface(QC): 4 Walk 50ft with 2 Turns (QC): 5 Walk 150 ft (QC): 4 (asssit with this, CGA) Gait Assistive Device: Cane Large Base Quad Does the Pt use WC or Scooter?: Yes Wheelchair (FIM): 6 Wheelchair distance (FIM): 3=150 ft Wheel 50 feet with 2 turns (QC: 6 Stairs (FIM): 5 (household) # of Steps: 8 1 Step (curb) (QC): 5 4 Steps (QC): 5 12 Steps (QC): 5 Stairs Level Of Assist: 6 Picking up an Object (QC): 4 PT Plan Problem List Problem List: Activity Tolerance, Functional Strength, Safety, Balance, Gait, Transfer, Bed Mobility Treatment/Plan Treatment Plan: Continue Plan of Care Treatment Plan: Bed Mobility, Education, Functional Activity Delmy, Functional Strength, Group Therapy, Gait, Safety, Therapeutic Exercise, Transfers Treatment Duration: Feb 19, 2017 Visits Per Week: 10-*15 Minutes/Day (M-F): 60-90 Minutes/Day (Sat/Gonzalez): prn Safety Risks/Education Patient Education: Gait Training, Transfer Techniques, Safety Issues Teaching Recipient: Patient Teaching Methods: Demonstration, Discussion Response to Teaching: Reinforcement Needed Time/GCodes Time In: 1400 Time Out: 1430 Total Billed Treatment Time: 30 Total Billed Treatment 1 visit GT 30 min BROOKE WORLEY PT Jan 31, 2017 14:40
[2017-01-31 17:42] VITALS: BP 149/74
--- NOTE | 2017-01-31 19:28 | PM & R (SOAP) Progress Note ---
Subjective Subjective/Events-last exam Patient was seen in his room this evening Patient min assist for transfers Met with patients briefly Accuchecks noted as well as other labs and therpy and DR Zayas notes Objective Exam Last Set of Vital Signs Vital Signs Date Time Temp Pulse Resp B/P Pulse Ox O2 Delivery O2 Flow Rate FiO2 01/31/17 17:42 97.7 71 18 149/74 98 Room Air Capillary Refill : I&O Intake and Output 01/31/17 00:00 Intake Total 600 ml Output Total 1200 ml Balance -600 ml Intake Oral 600 ml Output Urine Total 1200 ml # Bowel Movements 1 General: Alert, Oriented X3, Cooperative, No Acute Distress HEENT: Atraumatic, PERRLA, EOMI, Mucous Memb Moist/[place], Other (rt labila droop ) Neck: Supple, No JVD Lungs: Clear to Auscultation Heart: Regular Rate Abdomen: Normal Bowel Sounds, Soft, No Tenderness Extremities: No Edema Neuro: Other (rt HP and mild cognitive impairment and word finding difficulty) Results Lab Laboratory Tests 01/28/17 20:40: Glucometer 104 01/29/17 05:52: Glucometer 113H 01/29/17 11:04: Glucometer 96 01/29/17 16:14: Glucometer 102 01/29/17 21:01: Glucometer 149H 01/30/17 05:06: Glucometer 137H 01/30/17 11:05: Glucometer 144H 01/30/17 15:43: Glucometer 136H 01/30/17 21:22: Glucometer 116H 01/31/17 06:13: Glucometer 120H 01/31/17 11:15: Glucometer 99 01/31/17 15:37: Glucometer 128H Assessment/Plan Assessment Left CVA with RT HP HTN better controlled DM controlled -Diabetic education ordered Constipation treated Plan Continue PT/OT/ST Recheck Labs-done HTN meds adjusted earlier this week with better control Constipation treated Next Team Conference 02/02/17 DANIKA BRADLEY MD Jan 31, 2017 19:27
[2017-01-31] MEDS: ATORVASTATIN 40 MG (LIPITOR) TABLET PO SCH (21:13)
[2017-01-31] MEDS: inSUlin DETERMIR 1 UNIT/0.01 ML (LEVEMIR) CHARGE PER UNIT SQ SCH (21:13)
[2017-02-01 05:06] VITALS: BP 150/77
[2017-02-01] MEDS: inSUlin ASPART (NovoLOG) 1 UNIT/0.01 ML (CHARGE PER UNIT) SC SCH ×4 (06:00→20:57)
[2017-02-01] MEDS: hydrALAZINE (APRESOLINE) 25 MG TAB PO SCH ×3 (06:13→21:00)
--- NOTE | 2017-02-01 07:58 | Progress Note (SOAP) ---
Subjective Subjective/Events-last exam CVA. Hypertension. Hypertension doing better. Patient states he is doing better with his foot left. Patient still having problems with his left hand Objective Exam Vital Signs Date Time Temp Pulse Resp B/P Pulse Ox O2 Delivery O2 Flow Rate FiO2 02/01/17 05:06 97.3 61 18 150/77 97 Room Air 01/31/17 20:20 Room Air 01/31/17 17:42 97.7 71 18 149/74 98 Room Air 01/31/17 08:25 Room Air I & O 02/01/17 07:00 Intake Total 880 ml Output Total 800 ml Balance 80 ml Capillary Refill : General Appearance: No Apparent Distress WD/WN Neck: Full Range of Motion Normal Inspection Respiratory: Chest Non Tender Lungs Clear Normal Breath Sounds No Accessory Muscle Use No Respiratory Distress Cardiovascular: Regular Rate, Rhythm No Murmur Results Lab Laboratory Tests 01/31/17 11:15: Glucometer 99 01/31/17 15:37: Glucometer 128H 01/31/17 21:14: Glucometer 137H 02/01/17 06:12: Glucometer 121H Assessment/Plan Assessment/Plan Assess & Plan/Chief Complaint CVA on right. Hypertension. Diabetes. Patient when asked questions has a slow thought process. Patient unable to picker/puller right hand. Patient does move his right leg. . 01/24/17. CVA on right. Hypertension. Diabetes. Patient is improving. Patient positive. . 01/25/17. CVA on right. Hypertension. HCTZ added. Patient moving right extremities better. Patient improving. . 01/26/17 CVA Hypertension Patient moving left extremities better. Patient improving. Blood pressure better today than yesterday. . 3/Touche last . CVA on right. Hypertension. Diabetes. Control. Patient talking better. . 01/28/17. CVA on right. Hypertension. Diabetes. Patient continues to improve slowly. . 01/31/17. CVA on right. Hypertension better. Sugars good. Positive to do PT and OT.. . 02/01/17. CVA in right. Hypertension doing better. Patient's left leg doing better. Slow process with left hand Clinical Quality Measures DVT/VTE Risk/Contraindication: Risk Factor Score Per Nursin RFS Level Per Nursing on Admit: 4+=Very High BENJY SANTANA DO Feb 01, 2017 07:58
[2017-02-01] MEDS: HYDROCHLOROTHIAZIDE 25 MG (HCTZ) TAB PO SCH (08:07)
[2017-02-01] MEDS: ASPIRIN 325 MG (5 GR) TABLET PO SCH (08:07)
[2017-02-01] MEDS: SENNA W/DOCUSATE (SENOKOT S) TABLET PO SCH ×2 (08:07→20:59)
[2017-02-01] MEDS: amLODIPine 5 MG (NORVASC) TAB PO SCH (08:07)
[2017-02-01] MEDS: meTOprolol TARTRATE 25 MG (LOPRESSOR) TABLET PO SCH ×2 (08:07→20:59)
--- NOTE | 2017-02-01 09:10 | Occupational Ther Daily Note ---
OT Current Status-Daily Note Subjective Pt in bed, agrees to treatment. Pt denies pain. Mental Status/Objective Functional [place] Measure 0=Not Assessed/NA 4=Minimal Assistance 1=Total Assistance 5=Supervision or Setup 2=Maximal Assistance 6=Modified [place] 3=Moderate Assistance 7=Complete [place] ADL-Treatment Pt supine to sit with supervision. Transfer to w/c with minimal assistance. Pt brushed teeth seated at sink with SBA. Transfer to shower bench with minimal assistance using grab bar. Seated bathing completed with increased time. Pt able to wash/dry right UE, chest, abdomen, bilateral upper and lower legs, and marta area. Assist for other areas. Pt donned pullover shirt with SBA and increased time. Pt able to start Depends and pants over bilateral feet. Pt has difficulty threading right leg through pant leg, but is able to complete task without assistance. Stood with minimal assistance for pant hike. Pt donned bilateral socks with SBA and increased time, cues for technique. Pt fatigues with activity and requires occasional rest breaks throughout treatment. Pt combed hair with SBA. Transfer to recliner chair with minimal assistance. Sitting in chair with needs met after session. Functional [place] Measure 0=Not Assessed/NA 4=Minimal Assistance 1=Total Assistance 5=Supervision or Setup 2=Maximal Assistance 6=Modified [place] 3=Moderate Assistance 7=Complete IndependenceIRFPAI Quality Coding Scale 6 Independent with activity with or without an assistive device 5 Patient requires set up or clean up by helper. Patient completes activity by themselves 4 Supervision or touching assist (CGA). [place] provide cues , steadying assist 3 The helper provides less than half the effort to complete the activity 2 The helper provides more than half the effort to complete the activity 1 Dependent. The helper does all the effort to complete an activity 7 Patient refused to complete or attempt activity 9 The patient did not perform the activity before the current illness or injury 88 Not attempted due to Medical conditions or safety concerns Grooming (FIM): 5 Bathing (FIM): 4 Bathing Location: R Arm, L Upper Leg, R Upper Leg, L Lower Leg (including foot) , R Lower Leg (including foot), Chest, Abdomen, Perineal Area Shower/Bathe Self (QC): 3 Upper Body (FIM): 5 Upper Body Dressing (QC): 4 Lower Body Dressing (FIM): 4 Lower Body Dressing (QC): 3 On/Off Footwear (QC): 4 Shower Transfer(FIM): 4 OT Short Term Goals Short Term Goals Time Frame: Jan 29, 2017 Eating(FIM): 5 Grooming(FIM): 5 Bathing(FIM): 4 Upper Body Dressing(FIM): 4 Lower Body Dressing(FIM): 4 Toileting(FIM): 4 Transfers (B,C,W/C) (FIM): 4 Toilet/Commode Transfer(FIM): 4 Shower Transfer(FIM): 4 Additional Short Term Goals: 1-Demonstrate ADL Tasks, 2-Verbalize Understanding , 3-ImproveStrength/Delmy 1=Demonstrate adherence to instructed precautions during ADL tasks. 2=Patient will verbalize/demonstrate understanding of assistive devices/ modifications for ADL. 3=Patient will improve strength/tolerance for activity to enable patient to perform ADL's. OT Operating Room Registered Nurse Goals [place] Goals Time Frame: Feb 12, 2017 Eating (FIM): 6 Eating (QC): 6 Groomin Oral Hygiene (QC): 6 Bathing(FIM): 5 Shower/Bathe Self (QC): 5 Upper Body Dressing(FIM): 6 Upper Body Dressing (QC): 6 Lower Body Dressing(FIM): 6 Lower Body Dressing (QC): 6 On/Off Footwear (QC): 6 Toileting(FIM): 6 Toileting Hygiene (QC): 6 Transfers (B,C,W/C) (FIM): 6 Toilet/Commode Transfer(FIM): 6 Toilet/Commode Transfer (QC): 6 Shower Transfer(FIM): 6 Additional Goals: 1-Demonstrate ADL Tasks, 2-Verbalize Understanding, 3- ImproveStrength/Delmy 1=Demonstrate adherence to instructed precautions during ADL tasks. 2=Patient will verbalize/demonstrate understanding of assistive devices/ modifications for ADL. 3=Patient will improve strength/tolerance for activity to enable patient to perform ADL's. OT Education/Plan Discharge Recommendations Plan/Recommendations: Continue POC Treatment Plan/Plan of Care Patient would benefit from OT for education, treatment and training to promote independence in ADL's, mobility, safety and/or upper extremity function for ADL' s. Plan of Care: ADL Retraining, Caregiver Training, Cognitive Retraining, Functional Mobility, Group Exercise/Act as Ind, UE Funct Exercise/Act Treatment Duration: Feb 12, 2017 Visits Per Week: 10-12 Minutes/Day (M-F): 60-90 Minutes/Day (Sat/Gonzalez): prn Agreement: Yes Rehab Potential: Good Time/GCodes Start Time: 08:00 Stop Time: 09:00 Total Time Billed (hr/min): 60 Billed Treatment Time 1 visit, ADLx4(60minutes) JOSSIE GALVEZ OT Feb 01, 2017 09:10
--- NOTE | 2017-02-01 10:05 | Speech Therapy Daily Note ---
Speech Daily Progress Note Subjective The patient was sitting upright in recliner upon entrance. The patient greeted the clinician appropriately and agreed to participate in the speech and language treatment program on this date. Objective Word-Finding: The patient was provided with a specific category and a specific letter. The patient was asked to provide a word that began with the letter and fit into the category provided. The patient demonstrated increased accuracy with this task, displaying 90% with mild clinician verbal cueing. Following the initial task, the patient was provided a category and asked to provide three items that belonged into the category. The patient also demonstrated improvement on this task, displaying 80% accuracy with mild clinician verbal cueing. Assessment Assessment Current Status: Good Progress Treatment Plan Continue Plan of Care Communication Comprehension: 4 Expression: 4 Social Cognition Social Interaction: 5 Problem Solvin Memory: 4 Speech Short Term Goals Short Term Goals Short Term Goals 1. The patient will demonstrated 80% accuracy throughout structured word- finding tasks, independently. 2. The patient will recall and demonstrate two functional memory strategies for use at home, independently. Time Frame-STG: Two Weeks Speech Custodial Goals Custodial Goals 1. The patient will demonstrated improved expressive communication and cognitive skills for increased function and safety with ADL's. Time Frame: Four Weeks Speech-Plan Treatment Plan Speech Therapy Treatment Plan: Continue Plan of Care Continue skilled speech therapy to focus on expressive communication, specifically functional word-finding strategies. Treatment Duration: Feb 21, 2017 # of days/week Four to five. Visits Per Week: Four to five. Minutes/Day (M-F): 30-45 Rehab Potential: Good Safety Risks/Education Teaching Recipient: Patient Teaching Methods: Demonstration, Discussion Response to Teaching: Verbalize Understanding, Return Demonstration, Reinforcement Needed Education Topics Provided: Word-Finding Strategies Time Speech Therapy Time In: 09:00 Speech Therapy Time Out: 09:30 Total Billed Time: 30 Billed Treatment Time DarrylDAHLIA ELIZABETH ST Feb 01, 2017 10:05
--- NOTE | 2017-02-01 10:49 | Physical Therapy Daily Note ---
PT Daily Note-Current Subjective Patient in recliner pre tx, agrees to PT, no complaints of pain. Appearance Patient in recliner post tx with nurse call, phone, tray, all needs met. Mental Status Patient Orientation: Normal For Age Transfers Functional [place] Measure 0=Not Assessed/NA 4=Minimal Assistance 1=Total Assistance 5=Supervision or Setup 2=Maximal Assistance 6=Modified [place] 3=Moderate Assistance 7=Complete IndependenceIRFPAI Quality Coding Scale 6 Independent with activity with or without an assistive device 5 Patient requires set up or clean up by helper. Patient completes activity by themselves 4 Supervision or touching assist (CGA). [place] provide cues , steadying assist 3 The helper provides less than half the effort to complete the activity 2 The helper provides more than half the effort to complete the activity 1 Dependent. The helper does all the effort to complete an activity 7 Patient refused to complete or attempt activity 9 The patient did not perform the activity before the current illness or injury 88 Not attempted due to Medical conditions or safety concerns Transfers (B, C, W/C) (FIM): 4 Sit to/from Stand: 4 Bed to/from Chair: 4 Gait Training Gait (FIM): 4 Distance: 150'x3 Gait Level of Assist: 4 Gait Persons Needed: 1 Gait Assistive Device: Cane Large Base Quad Abdon wrap on right ankle for dorsiflexion assist, min assist for balance, frequent right knee hyperextension Stair Training Stair Training: Handrails/: 1 handrail Stairs (FIM): 2 #of Steps: 8 Stairs: Pattern: Step to Level of Assist: 4 CGA but very close guarding, cues for safety and foot placement Treatments transfers, ambulation, stair training Assessment Current Status: Fair Progress improving strength and endurance, still has trouble with balance during ambulation and transfers to the right side PT Short Term Goals Short Term Goals Time Frame: Feb 05, 2017 Transfers (B,C,W/C) (FIM): 4 Gait (FIM): 4 Distance (FIM): 3=150 ft Gait Assistive Device: Cane Large Base Quad Wheelchair Distance: 150'x2 Stairs (FIM): 2 # of Steps: 4 Stairs Level of Assist: 4 PT Procurement Analyst Goals Procurement Analyst Goals PT Procurement Analyst Goals Time Frame: Feb 19, 2017 Transfers (B,C,W/C) (FIM): 6 Sit to Lying (QC): 6 Lying-Sitting on Side/Bed(QC): 6 Sit to Stand (QC): 6 Rollin Roll Left to Right (QC): 6 Chair/[id number]-Qvnwg Xfer(QC): 6 Car Transfer (QC): 6 Does the Patient Walk: Yes Gait (FIM): 5 (household) Gait distance (FIM): 5=093-05 ft Distance: 50 ft household Walk 10 feet (QC): 5 Walk 10ft-Uneven Surface(QC): 4 Walk 50ft with 2 Turns (QC): 5 Walk 150 ft (QC): 4 (asssit with this, CGA) Gait Assistive Device: Cane Large Base Quad Does the Pt use WC or Scooter?: Yes Wheelchair (FIM): 6 Wheelchair distance (FIM): 3=150 ft Wheel 50 feet with 2 turns (QC: 6 Stairs (FIM): 5 (household) # of Steps: 8 1 Step (curb) (QC): 5 4 Steps (QC): 5 12 Steps (QC): 5 Stairs Level Of Assist: 6 Picking up an Object (QC): 4 PT Plan Problem List Problem List: Activity Tolerance, Functional Strength, Safety, Balance, Gait, Transfer, Bed Mobility, ROM Treatment/Plan Treatment Plan: Continue Plan of Care Treatment Plan: Bed Mobility, Education, Functional Activity Delmy, Functional Strength, Group Therapy, Gait, Safety, Therapeutic Exercise, Transfers Treatment Duration: Feb 19, 2017 Visits Per Week: 10-*15 Minutes/Day (M-F): 60-90 Minutes/Day (Sat/Gonzalez): prn Safety Risks/Education Patient Education: Gait Training, Transfer Techniques, Steps, Safety Issues Teaching Recipient: Patient Teaching Methods: Demonstration, Discussion Response to Teaching: Reinforcement Needed Time/GCodes Time In: 1000 Time Out: 1045 Total Billed Treatment Time: 45 Total Billed Treatment 1 visit GT 30 min FA 15 min BROOKE WORLEY PT Feb 01, 2017 10:49
--- NOTE | 2017-02-01 11:32 | PM & R (SOAP) Progress Note ---
Subjective Subjective/Events-last exam Patient was seen in his room this AM Patient min assist for transfers Accucheks stable Objective Exam Last Set of Vital Signs Vital Signs Date Time Temp Pulse Resp B/P Pulse Ox O2 Delivery O2 Flow Rate FiO2 02/01/17 09:00 Room Air 02/01/17 05:06 97.3 61 18 150/77 97 Capillary Refill : I&O Intake and Output 02/01/17 00:00 Intake Total 880 ml Output Total 825 ml Balance 55 ml Intake Oral 880 ml Output Urine Total 825 ml # Bowel Movements 1 General: Alert, Oriented X3, Cooperative, No Acute Distress HEENT: Atraumatic, PERRLA, EOMI, Mucous Memb Moist/[place], Other (rt labila droop ) Neck: Supple, No JVD Lungs: Clear to Auscultation Heart: Regular Rate Abdomen: Normal Bowel Sounds, Soft, No Tenderness Extremities: No Edema Neuro: Other (rt HP and mild cognitive impairment and word finding difficulty) Results Lab Laboratory Tests 01/29/17 16:14: Glucometer 102 01/29/17 21:01: Glucometer 149H 01/30/17 05:06: Glucometer 137H 01/30/17 11:05: Glucometer 144H 01/30/17 15:43: Glucometer 136H 01/30/17 21:22: Glucometer 116H 01/31/17 06:13: Glucometer 120H 01/31/17 11:15: Glucometer 99 01/31/17 15:37: Glucometer 128H 01/31/17 21:14: Glucometer 137H 02/01/17 06:12: Glucometer 121H Assessment/Plan Assessment Left CVA with RT HP HTN better controlled DM controlled -Diabetic education ordered Constipation treated Plan Continue PT/OT/ST Recheck Labs-done HTN meds adjusted earlier this week with better control Constipation treated Next Team Conference tomorrow 02/02/17 Appreciate Therapy notes and current labs DANIKA BRADLEY MD Feb 01, 2017 11:32
--- NOTE | 2017-02-01 12:46 | Occupational Ther Daily Note ---
OT Current Status-Daily Note Subjective Pt agrees to treatment. No c/o pain. Pt reports fatigue. Mental Status/Objective Functional [place] Measure 0=Not Assessed/NA 4=Minimal Assistance 1=Total Assistance 5=Supervision or Setup 2=Maximal Assistance 6=Modified [place] 3=Moderate Assistance 7=Complete [place] ADL-Treatment Functional [place] Measure 0=Not Assessed/NA 4=Minimal Assistance 1=Total Assistance 5=Supervision or Setup 2=Maximal Assistance 6=Modified [place] 3=Moderate Assistance 7=Complete IndependenceIRFPAI Quality Coding Scale 6 Independent with activity with or without an assistive device 5 Patient requires set up or clean up by helper. Patient completes activity by themselves 4 Supervision or touching assist (CGA). [place] provide cues , steadying assist 3 The helper provides less than half the effort to complete the activity 2 The helper provides more than half the effort to complete the activity 1 Dependent. The helper does all the effort to complete an activity 7 Patient refused to complete or attempt activity 9 The patient did not perform the activity before the current illness or injury 88 Not attempted due to Medical conditions or safety concerns Other Treatment Transfer chair to w/c with minimal assistance. Pt performed w/c mobility to therapy gym with SBA. Transfer w/c <-> mat with minimal assistance. Weight bearing completed through right UE while seated edge of mat. Pt requires assist for proper posture and to maintain elbow extension. Right UE exercises completed to promote increased active ROM and strength. Pt demonstrates some active shoulder and elbow movement, but fatigues very quickly with exercises. ROM x10 reps completed at all joints with pt assisting as able. Pt demonstrates trace finger flexion during exercises. Frequent rest breaks required during session. Pt returned to room, transferred to recliner chair with minimal assistance. Sitting in chair eating lunch after set up. Continue POC. OT Short Term Goals Short Term Goals Time Frame: Jan 29, 2017 Eating(FIM): 5 Grooming(FIM): 5 Bathing(FIM): 4 Upper Body Dressing(FIM): 4 Lower Body Dressing(FIM): 4 Toileting(FIM): 4 Transfers (B,C,W/C) (FIM): 4 Toilet/Commode Transfer(FIM): 4 Shower Transfer(FIM): 4 Additional Short Term Goals: 1-Demonstrate ADL Tasks, 2-Verbalize Understanding , 3-ImproveStrength/Delmy 1=Demonstrate adherence to instructed precautions during ADL tasks. 2=Patient will verbalize/demonstrate understanding of assistive devices/ modifications for ADL. 3=Patient will improve strength/tolerance for activity to enable patient to perform ADL's. OT [facility] Goals Overhead Door Technician Goals Time Frame: Feb 12, 2017 Eating (FIM): 6 Eating (QC): 6 Groomin Oral Hygiene (QC): 6 Bathing(FIM): 5 Shower/Bathe Self (QC): 5 Upper Body Dressing(FIM): 6 Upper Body Dressing (QC): 6 Lower Body Dressing(FIM): 6 Lower Body Dressing (QC): 6 On/Off Footwear (QC): 6 Toileting(FIM): 6 Toileting Hygiene (QC): 6 Transfers (B,C,W/C) (FIM): 6 Toilet/Commode Transfer(FIM): 6 Toilet/Commode Transfer (QC): 6 Shower Transfer(FIM): 6 Additional Goals: 1-Demonstrate ADL Tasks, 2-Verbalize Understanding, 3- ImproveStrength/Delmy 1=Demonstrate adherence to instructed precautions during ADL tasks. 2=Patient will verbalize/demonstrate understanding of assistive devices/ modifications for ADL. 3=Patient will improve strength/tolerance for activity to enable patient to perform ADL's. OT Education/Plan Discharge Recommendations Plan/Recommendations: Continue POC Treatment Plan/Plan of Care Patient would benefit from OT for education, treatment and training to promote independence in ADL's, mobility, safety and/or upper extremity function for ADL' s. Plan of Care: ADL Retraining, Caregiver Training, Cognitive Retraining, Functional Mobility, Group Exercise/Act as Ind, UE Funct Exercise/Act Treatment Duration: Feb 12, 2017 Visits Per Week: 10-12 Minutes/Day (M-F): 60-90 Minutes/Day (Sat/Gonzalez): prn Agreement: Yes Rehab Potential: Good Time/GCodes Start Time: 11:30 Stop Time: 12:00 Total Time Billed (hr/min): 30 Billed Treatment Time 1 visit, NMx2(30minutes) JOSSIE GALVEZ OT Feb 01, 2017 12:46
--- NOTE | 2017-02-01 14:32 | Physical Therapy Daily Note ---
PT Daily Note-Current Subjective Patient in recliner pre tx, agrees to PT, no complaints of pain. Appearance Patient in recliner post tx with nurse call, phone, tray, all needs met. Mental Status Patient Orientation: Normal For Age Transfers Functional [place] Measure 0=Not Assessed/NA 4=Minimal Assistance 1=Total Assistance 5=Supervision or Setup 2=Maximal Assistance 6=Modified [place] 3=Moderate Assistance 7=Complete IndependenceIRFPAI Quality Coding Scale 6 Independent with activity with or without an assistive device 5 Patient requires set up or clean up by helper. Patient completes activity by themselves 4 Supervision or touching assist (CGA). [place] provide cues , steadying assist 3 The helper provides less than half the effort to complete the activity 2 The helper provides more than half the effort to complete the activity 1 Dependent. The helper does all the effort to complete an activity 7 Patient refused to complete or attempt activity 9 The patient did not perform the activity before the current illness or injury 88 Not attempted due to Medical conditions or safety concerns Transfers (B, C, W/C) (FIM): 4 Sit to/from Stand: 4 Gait Training Gait (FIM): 4 Distance: 150'x2 Gait Level of Assist: 4 Gait Persons Needed: 1 Gait Assistive Device: Cane Large Base Quad Abdon wrap for dorsiflexion assist on right side, min assist for balance, right knee hyperextension. Exercises NuStep Minutes: 15 NuStep Workload: 5 Treatments transfers, ambulation, functional strengthening Assessment Current Status: Fair Progress improving endurance PT Short Term Goals Short Term Goals Time Frame: Feb 05, 2017 Transfers (B,C,W/C) (FIM): 4 Gait (FIM): 4 Distance (FIM): 3=150 ft Gait Assistive Device: Cane Large Base Quad Wheelchair Distance: 150'x2 Stairs (FIM): 2 # of Steps: 4 Stairs Level of Assist: 4 PT Fashion Designer Goals Fashion Designer Goals PT Mcc Goals Time Frame: Feb 19, 2017 Transfers (B,C,W/C) (FIM): 6 Sit to Lying (QC): 6 Lying-Sitting on Side/Bed(QC): 6 Sit to Stand (QC): 6 Rollin Roll Left to Right (QC): 6 Chair/[id number]-Njejp Xfer(QC): 6 Car Transfer (QC): 6 Does the Patient Walk: Yes Gait (FIM): 5 (household) Gait distance (FIM): 1=811-95 ft Distance: 50 ft household Walk 10 feet (QC): 5 Walk 10ft-Uneven Surface(QC): 4 Walk 50ft with 2 Turns (QC): 5 Walk 150 ft (QC): 4 (asssit with this, CGA) Gait Assistive Device: Cane Large Base Quad Does the Pt use WC or Scooter?: Yes Wheelchair (FIM): 6 Wheelchair distance (FIM): 3=150 ft Wheel 50 feet with 2 turns (QC: 6 Stairs (FIM): 5 (household) # of Steps: 8 1 Step (curb) (QC): 5 4 Steps (QC): 5 12 Steps (QC): 5 Stairs Level Of Assist: 6 Picking up an Object (QC): 4 PT Plan Problem List Problem List: Activity Tolerance, Functional Strength, Safety, Balance, Gait, Transfer, Bed Mobility, ROM Treatment/Plan Treatment Plan: Continue Plan of Care Treatment Plan: Bed Mobility, Education, Functional Activity Delmy, Functional Strength, Group Therapy, Gait, Safety, Therapeutic Exercise, Transfers Treatment Duration: Feb 19, 2017 Visits Per Week: 10-*15 Minutes/Day (M-F): 60-90 Minutes/Day (Sat/Gonzalez): prn Safety Risks/Education Patient Education: Gait Training, Transfer Techniques, Correct Positioning, Safety Issues Teaching Recipient: Patient Teaching Methods: Demonstration, Discussion Response to Teaching: Reinforcement Needed Time/GCodes Time In: 1400 Time Out: 1430 Total Billed Treatment Time: 30 Total Billed Treatment 1 visit GT 15 min EX 15 min BROOKE WORLEY PT Feb 01, 2017 14:32
[2017-02-01 18:28] VITALS: BP 168/74
[2017-02-01] MEDS: ATORVASTATIN 40 MG (LIPITOR) TABLET PO SCH (20:58)
[2017-02-01] MEDS: inSUlin DETERMIR 1 UNIT/0.01 ML (LEVEMIR) CHARGE PER UNIT SQ SCH (20:58)
[2017-02-02] MEDS: hydrALAZINE (APRESOLINE) 25 MG TAB PO SCH ×3 (05:24→21:04)
[2017-02-02 06:00] VITALS: BP 152/84
[2017-02-02] MEDS: inSUlin ASPART (NovoLOG) 1 UNIT/0.01 ML (CHARGE PER UNIT) SC SCH ×4 (06:00→20:58)
--- NOTE | 2017-02-02 07:59 | Progress Note (SOAP) ---
Subjective Subjective/Events-last exam CVA, Hypertension. Patient toes is going to move. Still not able to move hand. Patient positive Objective Exam Vital Signs Date Time Temp Pulse Resp B/P Pulse Ox O2 Delivery O2 Flow Rate FiO2 02/02/17 06:00 98.4 62 20 152/84 95 Room Air 02/01/17 21:00 Room Air 02/01/17 18:28 98.0 68 16 168/74 97 02/01/17 09:00 Room Air I & O 02/02/17 07:00 Intake Total 950 ml Output Total 650 ml Balance 300 ml Capillary Refill : General Appearance: No Apparent Distress WD/WN Results Lab Laboratory Tests 02/01/17 10:52: Glucometer 111H 02/01/17 15:47: Glucometer 124H 02/01/17 20:51: Glucometer 143H 02/02/17 05:45: Glucometer 115H Assessment/Plan Assessment/Plan Assess & Plan/Chief Complaint CVA on right. Hypertension. Diabetes. Patient when asked questions has a slow thought process. 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 Patient does move his right leg. . 01/24/17. CVA on right. Hypertension. Diabetes. Patient is improving. Patient positive. . 01/25/17. CVA on right. Hypertension. HCTZ added. Patient moving right extremities better. Patient improving. . 01/26/17 CVA Hypertension Patient moving left extremities better. Patient improving. Blood pressure better today than yesterday. . 3/Touche last . CVA on right. Hypertension. Diabetes. Control. Patient talking better. . 01/28/17. CVA on right. Hypertension. Diabetes. Patient continues to improve slowly. . 01/31/17. CVA on right. Hypertension better. Sugars good. Positive to do PT and OT.. . 02/01/17. CVA in right. Hypertension doing better. Patient's left leg doing better. Slow process with left hand. . 02/02/17. CVA on right. Hypertension.. Patient moving toes in right foot. Patient still not moving right hand Clinical Quality Measures DVT/VTE Risk/Contraindication: Risk Factor Score Per Nursin RFS Level Per Nursing on Admit: 4+=Very High BENJY SANTANA DO Feb 02, 2017 07:59
--- NOTE | 2017-02-02 09:08 | Occupational Ther Daily Note ---
OT Current Status-Daily Note Subjective Pt in bed, agrees to treatment. Pt denies pain at this time. Mental Status/Objective Functional [place] Measure 0=Not Assessed/NA 4=Minimal Assistance 1=Total Assistance 5=Supervision or Setup 2=Maximal Assistance 6=Modified [place] 3=Moderate Assistance 7=Complete [place] ADL-Treatment Pt supine to sit with supervision. Transfer to w/c with CGA going to left side. Pt declined shower today, but would like to get dressed. Pt donned pullover shirt with set up. Don Depends and shorts with minimal assistance for balance during standing for pant hike. Pt requires increased time to start shorts over right foot, but able to do so without assistance. Pt doffed/donned socks with SBA and increased time. Pt fatigues with ADL activity and requires occasional rest breaks. Pt sat at sink for grooming. Combed hair, completed oral care, and washed face with SBA using left UE. Functional [place] Measure 0=Not Assessed/NA 4=Minimal Assistance 1=Total Assistance 5=Supervision or Setup 2=Maximal Assistance 6=Modified [place] 3=Moderate Assistance 7=Complete IndependenceIRFPAI Quality Coding Scale 6 Independent with activity with or without an assistive device 5 Patient requires set up or clean up by helper. Patient completes activity by themselves 4 Supervision or touching assist (CGA). [place] provide cues , steadying assist 3 The helper provides less than half the effort to complete the activity 2 The helper provides more than half the effort to complete the activity 1 Dependent. The helper does all the effort to complete an activity 7 Patient refused to complete or attempt activity 9 The patient did not perform the activity before the current illness or injury 88 Not attempted due to Medical conditions or safety concerns Grooming (FIM): 5 Oral Hygiene (QC): 4 Upper Body (FIM): 5 Upper Body Dressing (QC): 5 Lower Body Dressing (FIM): 4 Lower Body Dressing (QC): 3 On/Off Footwear (QC): 4 Other Treatment Pt performed w/c mobility to therapy gym with slow pace. Transfer w/c <-> edge of mat with minimal assistance. Weight bearing was completed through right UE while seated edge of mat. Pt able to complete weight shifting, but requires assist to maintain proper positioning of right UE. Sit to supine with SBA. Pt completed shoulder exercises while in supine. Pt demonstrates some active shoulder elevation and abduction/adduction. While seated edge of mat pt demonstrated minimal active scapular retraction and elbow flexion. PROM completed at forearm and wrist. Pt demonstrates trace finger flexion, requires assist for finger extension. Pt returned to room, transferred to chair with CGA. Pt sitting in chair with needs met after session. OT Short Term Goals Short Term Goals Time Frame: Jan 29, 2017 Eating(FIM): 5 Grooming(FIM): 5 Bathing(FIM): 4 Upper Body Dressing(FIM): 4 Lower Body Dressing(FIM): 4 Toileting(FIM): 4 Transfers (B,C,W/C) (FIM): 4 Toilet/Commode Transfer(FIM): 4 Shower Transfer(FIM): 4 Additional Short Term Goals: 1-Demonstrate ADL Tasks, 2-Verbalize Understanding , 3-ImproveStrength/Delmy 1=Demonstrate adherence to instructed precautions during ADL tasks. 2=Patient will verbalize/demonstrate understanding of assistive devices/ modifications for ADL. 3=Patient will improve strength/tolerance for activity to enable patient to perform ADL's. OT Applied Anthropologist Goals [facility] Goals Time Frame: Feb 12, 2017 Eating (FIM): 6 Eating (QC): 6 Groomin Oral Hygiene (QC): 6 Bathing(FIM): 5 Shower/Bathe Self (QC): 5 Upper Body Dressing(FIM): 6 Upper Body Dressing (QC): 6 Lower Body Dressing(FIM): 6 Lower Body Dressing (QC): 6 On/Off Footwear (QC): 6 Toileting(FIM): 6 Toileting Hygiene (QC): 6 Transfers (B,C,W/C) (FIM): 6 Toilet/Commode Transfer(FIM): 6 Toilet/Commode Transfer (QC): 6 Shower Transfer(FIM): 6 Additional Goals: 1-Demonstrate ADL Tasks, 2-Verbalize Understanding, 3- ImproveStrength/Delmy 1=Demonstrate adherence to instructed precautions during ADL tasks. 2=Patient will verbalize/demonstrate understanding of assistive devices/ modifications for ADL. 3=Patient will improve strength/tolerance for activity to enable patient to perform ADL's. OT Education/Plan Discharge Recommendations Plan/Recommendations: Continue POC Treatment Plan/Plan of Care Patient would benefit from OT for education, treatment and training to promote independence in ADL's, mobility, safety and/or upper extremity function for ADL' s. Plan of Care: ADL Retraining, Caregiver Training, Cognitive Retraining, Functional Mobility, Group Exercise/Act as Ind, UE Funct Exercise/Act Treatment Duration: Feb 12, 2017 Visits Per Week: 10-12 Minutes/Day (M-F): 60-90 Minutes/Day (Sat/Gonzalez): prn Agreement: Yes Rehab Potential: Good Time/GCodes Start Time: 08:00 Stop Time: 09:00 Total Time Billed (hr/min): 60 Billed Treatment Time 1 visit, ADLx2(30minutes), NMx2(30minutes) JOSSIE GALVEZ OT Feb 02, 2017 09:08
[2017-02-02] MEDS: SENNA W/DOCUSATE (SENOKOT S) TABLET PO SCH ×2 (09:13→21:04)
[2017-02-02] MEDS: ASPIRIN 325 MG (5 GR) TABLET PO SCH (09:13)
[2017-02-02] MEDS: amLODIPine 5 MG (NORVASC) TAB PO SCH (09:13)
[2017-02-02] MEDS: meTOprolol TARTRATE 25 MG (LOPRESSOR) TABLET PO SCH ×2 (09:13→21:04)
[2017-02-02] MEDS: HYDROCHLOROTHIAZIDE 25 MG (HCTZ) TAB PO SCH (09:14)
--- NOTE | 2017-02-02 10:17 | Physical Therapy Daily Note ---
PT Daily Note-Current Subjective Patient in recliner pre tx, agrees to PT, no complaints of pain. Appearance Patient in recliner post tx, has nurse call, phone, tray, all needs met. Mental Status Patient Orientation: Person, Place, Situation Transfers Functional [place] Measure 0=Not Assessed/NA 4=Minimal Assistance 1=Total Assistance 5=Supervision or Setup 2=Maximal Assistance 6=Modified [place] 3=Moderate Assistance 7=Complete IndependenceIRFPAI Quality Coding Scale 6 Independent with activity with or without an assistive device 5 Patient requires set up or clean up by helper. Patient completes activity by themselves 4 Supervision or touching assist (CGA). [place] provide cues , steadying assist 3 The helper provides less than half the effort to complete the activity 2 The helper provides more than half the effort to complete the activity 1 Dependent. The helper does all the effort to complete an activity 7 Patient refused to complete or attempt activity 9 The patient did not perform the activity before the current illness or injury 88 Not attempted due to Medical conditions or safety concerns Transfers (B, C, W/C) (FIM): 4 Scootin Rollin Supine to/from Sit: 6 Sit to/from Stand: 4 Bed to/from Chair: 4 stand pivot min assist to the right and CGA to the left, cues for hand placement and safety Gait Training Gait (FIM): 4 Distance: 150'x2 Gait Level of Assist: 4 Gait Persons Needed: 1 Gait Assistive Device: Cane Large Base Quad [place] wrap on right ankle for dorsiflexion assist, right knee hyperextension, min assist for balance Exercises supine SAQ right right leg for 5 min, LAQ with right leg for 5 min, bridges x 20 , supine right knee fallouts x 20 Treatments bed mobility and transfers, ambulation, functional strengthening Assessment Current Status: Fair Progress improving endurance PT Short Term Goals Short Term Goals Time Frame: Feb 05, 2017 Transfers (B,C,W/C) (FIM): 4 Gait (FIM): 4 Distance (FIM): 3=150 ft Gait Assistive Device: Cane Large Base Quad Wheelchair Distance: 150'x2 Stairs (FIM): 2 # of Steps: 4 Stairs Level of Assist: 4 PT Longterm Goals Longterm Goals PT [employer] [place] Goals Time Frame: Feb 19, 2017 Transfers (B,C,W/C) (FIM): 6 Sit to Lying (QC): 6 Lying-Sitting on Side/Bed(QC): 6 Sit to Stand (QC): 6 Rollin Roll Left to Right (QC): 6 Chair/Zmc-ii-Slyju Xfer(QC): 6 Car Transfer (QC): 6 Does the Patient Walk: Yes Gait (FIM): 5 (household) Gait distance (FIM): 0=698-44 ft Distance: 50 ft household Walk 10 feet (QC): 5 Walk 10ft-Uneven Surface(QC): 4 Walk 50ft with 2 Turns (QC): 5 Walk 150 ft (QC): 4 (asssit with this, CGA) Gait Assistive Device: Cane Large Base Quad Does the Pt use WC or Scooter?: Yes Wheelchair (FIM): 6 Wheelchair distance (FIM): 3=150 ft Wheel 50 feet with 2 turns (QC: 6 Stairs (FIM): 5 (household) # of Steps: 8 1 Step (curb) (QC): 5 4 Steps (QC): 5 12 Steps (QC): 5 Stairs Level Of Assist: 6 Picking up an Object (QC): 4 PT Plan Problem List Problem List: Activity Tolerance, Functional Strength, Safety, Balance, Gait, Transfer, Bed Mobility, ROM Treatment/Plan Treatment Plan: Continue Plan of Care Treatment Plan: Bed Mobility, Education, Functional Activity Delmy, Functional Strength, Group Therapy, Gait, Safety, Therapeutic Exercise, Transfers Treatment Duration: Feb 19, 2017 Visits Per Week: 10-*15 Minutes/Day (M-F): 60-90 Minutes/Day (Sat/Gonzalez): prn Safety Risks/Education Patient Education: Gait Training, Transfer Techniques, Safety Issues Teaching Recipient: Patient Teaching Methods: Demonstration, Discussion Response to Teaching: Reinforcement Needed Time/GCodes Time In: 930 Time Out: 1015 Total Billed Treatment Time: 45 Total Billed Treatment 1 visit EX 15 min GT 30 min BROOKE WORLEY PT Feb 02, 2017 10:17
--- NOTE | 2017-02-02 11:04 | Speech Therapy Daily Note ---
Speech Daily Progress Note Subjective The patient was sitting upright in recliner upon entrance. The patient greeted the clinician appropriately and agreed to participate in the speech and language session on this date. Objective Word-Finding: - Picture Description: The patient was provided a specific picture and asked to describe the details to the clinician. The patient demonstrated fair accuracy with this task, requiring moderate clinician verbal prompting for continued verbal responses and complete sentences. - Category Members: The patient was provided a specific category and asked to provide three members that could be included in the category. The patient demonstrated moderate difficulty with this task (slightly increased difficulty in comparison to the previous session), displaying prolonged halts, pauses, and word-finding errors. The patient completed the task with approximately 70% accuracy and moderate clinician verbal prompting. Assessment Assessment Current Status: Good Progress Treatment Plan Continue Plan of Care Communication Comprehension: 4 Expression: 4 Social Cognition Social Interaction: 5 Problem Solvin Memory: 4 Speech Short Term Goals Short Term Goals Short Term Goals 1. The patient will demonstrated 80% accuracy throughout structured word- finding tasks, independently. 2. The patient will recall and demonstrate two functional memory strategies for use at home, independently. Time Frame-STG: Two Weeks Speech Custodial Goals Custodial Goals 1. The patient will demonstrated improved expressive communication and cognitive skills for increased function and safety with ADL's. Time Frame: Four Weeks Speech-Plan Treatment Plan Speech Therapy Treatment Plan: Continue Plan of Care Continue skilled speech pathology intervention to target expressive communication. Treatment Duration: Feb 21, 2017 # of days/week Four to five. Visits Per Week: Four to five. Minutes/Day (M-F): 30 Rehab Potential: Good Safety Risks/Education Teaching Recipient: Patient Teaching Methods: Demonstration, Discussion Response to Teaching: Return Demonstration, Reinforcement Needed Education Topics Provided: Circumlocution Strategies Time Speech Therapy Time In: 09:00 Speech Therapy Time Out: 09:30 Total Billed Time: 30 Billed Treatment Time 1DAHLIA ELIZABETH ST Feb 02, 2017 11:04
--- NOTE | 2017-02-02 14:31 | Therapy Group Daily Note ---
Therapy Daily Group Note Patient Education Topic Exercises (Benefits of Stretching) Exercises LE Seated Exercise, UE Exercise Other/Notes Pt transported to OT/PT group with w/c. Group consisted of introductions (name , place, own relaxation), socialization, education on stretching, UE/LE seated exercises, indoor signs/environmental Bingo. Pt actively participated in group. Pt was able to contribute to discussions each topic. Pt interacted with each peer appropriately. Attempted to complete UE/LE seated exercises, decreased ROM of L shldr. Pt was able to manipulate bingo chips, match pictures and follow directions throughout activities. After group, pt transported via w/c back to room. Call light/phone in reach. All needs met in room. Start Time: 13:00 Stop Time: 14:10 Total Billed Treatment Time: 65 Total Billed Treatment 1-GRP CHULA NGUYỄN Feb 02, 2017 14:31
[2017-02-02 18:00] VITALS: BP 132/69
--- NOTE | 2017-02-02 20:44 | PM & R (SOAP) Progress Note ---
Subjective Subjective/Events-last exam Patient was seen in his room this AM Patient min assist fpr transfers Objective Exam Last Set of Vital Signs Vital Signs Date Time Temp Pulse Resp B/P Pulse Ox O2 Delivery O2 Flow Rate FiO2 02/02/17 18:00 97.4 65 20 132/69 98 Room Air Capillary Refill : I&O Intake and Output 02/02/17 00:00 Intake Total 900 ml Output Total 500 ml Balance 400 ml Intake Oral 900 ml Output Urine Total 500 ml # Voids 3 # Bowel Movements 1 General: Alert, Oriented X3, Cooperative, No Acute Distress HEENT: Atraumatic, PERRLA, EOMI, Mucous Memb Moist/[place], Other (rt labila droop ) Neck: Supple, No JVD Lungs: Clear to Auscultation Heart: Regular Rate Abdomen: Normal Bowel Sounds, Soft, No Tenderness Extremities: No Edema Neuro: Other (rt HP and mild cognitive impairment and word finding difficulty) Results Lab Laboratory Tests 01/30/17 21:22: Glucometer 116H 01/31/17 06:13: Glucometer 120H 01/31/17 11:15: Glucometer 99 01/31/17 15:37: Glucometer 128H 01/31/17 21:14: Glucometer 137H 02/01/17 06:12: Glucometer 121H 02/01/17 10:52: Glucometer 111H 02/01/17 15:47: Glucometer 124H 02/01/17 20:51: Glucometer 143H 02/02/17 05:45: Glucometer 115H 02/02/17 10:47: Glucometer 120H 02/02/17 15:50: Glucometer 118H 02/02/17 20:21: Glucometer 136H Assessment/Plan Assessment Left CVA with RT HP HTN better controlled DM controlled -Diabetic education ordered Constipation treated Plan Continue PT/OT/ST Recheck Labs-done HTN meds adjusted earlier this week with better control Constipation treated Team Conference held earlier today-See report for full functional update and POC and ELOS Appreciate Therapy notes and current labs DANIKA BRADLEY MD Feb 02, 2017 20:44
[2017-02-02] MEDS: inSUlin DETERMIR 1 UNIT/0.01 ML (LEVEMIR) CHARGE PER UNIT SQ SCH (21:04)
[2017-02-02] MEDS: ATORVASTATIN 40 MG (LIPITOR) TABLET PO SCH (21:04)
[2017-02-03] MEDS: hydrALAZINE (APRESOLINE) 25 MG TAB PO SCH ×3 (05:20→21:20)
[2017-02-03] MEDS: inSUlin ASPART (NovoLOG) 1 UNIT/0.01 ML (CHARGE PER UNIT) SC SCH ×4 (05:21→20:40)
[2017-02-03 05:30] VITALS: BP 147/74
[2017-02-03] MEDS: HYDROCHLOROTHIAZIDE 25 MG (HCTZ) TAB PO SCH (08:00)
[2017-02-03] MEDS: amLODIPine 5 MG (NORVASC) TAB PO SCH (08:00)
[2017-02-03] MEDS: SENNA W/DOCUSATE (SENOKOT S) TABLET PO SCH ×2 (08:00→20:39)
[2017-02-03] MEDS: meTOprolol TARTRATE 25 MG (LOPRESSOR) TABLET PO SCH ×2 (08:01→20:39)
[2017-02-03] MEDS: ASPIRIN 325 MG (5 GR) TABLET PO SCH (08:01)
--- NOTE | 2017-02-03 08:27 | Progress Note (SOAP) ---
Subjective Subjective/Events-last exam patient is improving. Patient is able to move his right hand today. CVA. Hypertension or pressure under good control Objective Exam Vital Signs Date Time Temp Pulse Resp B/P Pulse Ox O2 Delivery O2 Flow Rate FiO2 02/03/17 05:30 97.5 63 20 147/74 96 Room Air 02/02/17 20:55 Room Air 02/02/17 18:00 97.4 65 20 132/69 98 Room Air 02/02/17 09:00 Room Air I & O 02/03/17 07:00 Intake Total 1370 ml Output Total 725 ml Balance 645 ml Capillary Refill : General Appearance: No Apparent Distress WD/WN HEENT: Normal ENT Inspection Neck: Full Range of Motion Non Tender Respiratory: Chest Non Tender No Accessory Muscle Use No Respiratory Distress Results Lab Laboratory Tests 02/02/17 10:47: Glucometer 120H 02/02/17 15:50: Glucometer 118H 02/02/17 20:21: Glucometer 136H 02/03/17 05:14: Glucometer 118H Assessment/Plan Assessment/Plan Assess & Plan/Chief Complaint CVA on right. Hypertension. Diabetes. Patient when asked questions has a slow thought process. 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 Patient does move his right leg. . 01/24/17. CVA on right. Hypertension. Diabetes. Patient is improving. Patient positive. . 01/25/17. CVA on right. Hypertension. HCTZ added. Patient moving right extremities better. Patient improving. . 01/26/17 CVA Hypertension Patient moving left extremities better. Patient improving. Blood pressure better today than yesterday. . 3/Touche last . CVA on right. Hypertension. Diabetes. Control. Patient talking better. . 01/28/17. CVA on right. Hypertension. Diabetes. Patient continues to improve slowly. . 01/31/17. CVA on right. Hypertension better. Sugars good. Positive to do PT and OT.. . 02/01/17. CVA in right. Hypertension doing better. Patient's left leg doing better. Slow process with left hand. . 02/02/17. CVA on right. Hypertension.. Patient moving toes in right foot. Patient still not moving right hand. . 02/03/17. CVA on right. Hypertension. Blood pressure better. Patient now starting to move the right hand. Right leg getting stronger. Patient in the right direction Clinical Quality Measures DVT/VTE Risk/Contraindication: Risk Factor Score Per Nursin RFS Level Per Nursing on Admit: 4+=Very High BENJY SANTANA DO Feb 03, 2017 08:27
--- NOTE | 2017-02-03 09:06 | Occupational Ther Daily Note ---
OT Current Status-Daily Note Subjective Pt agrees to treatment this morning. No c/o pain. Pt states he has been exercising right side while in bed. Mental Status/Objective Functional [place] Measure 0=Not Assessed/NA 4=Minimal Assistance 1=Total Assistance 5=Supervision or Setup 2=Maximal Assistance 6=Modified [place] 3=Moderate Assistance 7=Complete [place] ADL-Treatment Pt in w/c. Requests shower this morning. Transfer w/c <-> walk in shower with minimal assistance using grab bar. Seated bathing completed with increased time. Pt able to wash right UE, chest, abdomen, bilateral upper legs, marta area , and bilateral lower legs. Assist for other areas. Don pullover shirt after set up. Pt donned Depends and pants with minimal assistance for standing balance during pant hike. Dons bilateral socks with SBA while seated in w/c. Grooming tasks completed seated at sink. Pt brushed teeth and combed hair with SBA. Pt requires occasional rest breaks during ADLs secondary to fatigue. Transfer to recliner chair with CGA going to left side. Pt sitting in chair with needs met after session. Functional [place] Measure 0=Not Assessed/NA 4=Minimal Assistance 1=Total Assistance 5=Supervision or Setup 2=Maximal Assistance 6=Modified [place] 3=Moderate Assistance 7=Complete IndependenceIRFPAI Quality Coding Scale 6 Independent with activity with or without an assistive device 5 Patient requires set up or clean up by helper. Patient completes activity by themselves 4 Supervision or touching assist (CGA). [place] provide cues , steadying assist 3 The helper provides less than half the effort to complete the activity 2 The helper provides more than half the effort to complete the activity 1 Dependent. The helper does all the effort to complete an activity 7 Patient refused to complete or attempt activity 9 The patient did not perform the activity before the current illness or injury 88 Not attempted due to Medical conditions or safety concerns Grooming (FIM): 5 Bathing (FIM): 4 Bathing Location: R Arm, L Upper Leg, R Upper Leg, L Lower Leg (including foot) , R Lower Leg (including foot), Chest, Abdomen, Perineal Area Upper Body (FIM): 5 Lower Body Dressing (FIM): 4 Shower Transfer(FIM): 4 OT Short Term Goals Short Term Goals Time Frame: Jan 29, 2017 Eating(FIM): 5 Grooming(FIM): 5 Bathing(FIM): 4 Upper Body Dressing(FIM): 4 Lower Body Dressing(FIM): 4 Toileting(FIM): 4 Transfers (B,C,W/C) (FIM): 4 Toilet/Commode Transfer(FIM): 4 Shower Transfer(FIM): 4 Additional Short Term Goals: 1-Demonstrate ADL Tasks, 2-Verbalize Understanding , 3-ImproveStrength/Delmy 1=Demonstrate adherence to instructed precautions during ADL tasks. 2=Patient will verbalize/demonstrate understanding of assistive devices/ modifications for ADL. 3=Patient will improve strength/tolerance for activity to enable patient to perform ADL's. OT Nursing Home Goals Nursing Home Goals Time Frame: Feb 12, 2017 Eating (FIM): 6 Eating (QC): 6 Groomin Oral Hygiene (QC): 6 Bathing(FIM): 5 Shower/Bathe Self (QC): 5 Upper Body Dressing(FIM): 6 Upper Body Dressing (QC): 6 Lower Body Dressing(FIM): 6 Lower Body Dressing (QC): 6 On/Off Footwear (QC): 6 Toileting(FIM): 6 Toileting Hygiene (QC): 6 Transfers (B,C,W/C) (FIM): 6 Toilet/Commode Transfer(FIM): 6 Toilet/Commode Transfer (QC): 6 Shower Transfer(FIM): 6 Additional Goals: 1-Demonstrate ADL Tasks, 2-Verbalize Understanding, 3- ImproveStrength/Delmy 1=Demonstrate adherence to instructed precautions during ADL tasks. 2=Patient will verbalize/demonstrate understanding of assistive devices/ modifications for ADL. 3=Patient will improve strength/tolerance for activity to enable patient to perform ADL's. OT Education/Plan Discharge Recommendations Plan/Recommendations: Continue POC Treatment Plan/Plan of Care Patient would benefit from OT for education, treatment and training to promote independence in ADL's, mobility, safety and/or upper extremity function for ADL' s. Plan of Care: ADL Retraining, Caregiver Training, Cognitive Retraining, Functional Mobility, Group Exercise/Act as Ind, UE Funct Exercise/Act Treatment Duration: Feb 12, 2017 Visits Per Week: 10-12 Minutes/Day (M-F): 60-90 Minutes/Day (Sat/Gonzalez): prn Agreement: Yes Rehab Potential: Good Time/GCodes Start Time: 08:00 Stop Time: 09:00 Total Time Billed (hr/min): 60 Billed Treatment Time 1 visit, ADLx4(60minutes) JOSSIE GALVEZ OT Feb 03, 2017 09:06
--- NOTE | 2017-02-03 09:52 | Speech Therapy Daily Note ---
Speech Daily Progress Note Subjective The patient was seated upright in the recliner upon entrance. The patient greeted the clinician and agreed to participate in the speech and language evaluation on this date. To note, the patient stated he recently completed OT ( showered) and is fatigued. Objective Word-Finding: The patient was provided three words by the clinician. The patient was asked to name the category and provide one additional word that " fit into" the category appropriately. The patient demonstrated moderate difficulty with this task on this date, displaying 75% accuracy with significant word-finding halts and moderate clinician verbal cueing. Assessment Assessment Current Status: Fair Progress Treatment Plan Continue Plan of Care Communication Comprehension: 4 Expression: 4 Social Cognition Social Interaction: 5 Problem Solvin Memory: 4 Speech Short Term Goals Short Term Goals Short Term Goals 1. The patient will demonstrated 80% accuracy throughout structured word- finding tasks, independently. 2. The patient will recall and demonstrate two functional memory strategies for use at home, independently. Time Frame-STG: Two Weeks Speech [facility] Goals Sports Instructor Goals 1. The patient will demonstrated improved expressive communication and cognitive skills for increased function and safety with ADL's. Time Frame: Four Weeks Speech-Plan Treatment Plan Speech Therapy Treatment Plan: Continue Plan of Care Continue skilled speech therapy to target expressive communication. Treatment Duration: Feb 21, 2017 # of days/week Four to five. Visits Per Week: Four to five. Minutes/Day (M-F): 30 Rehab Potential: Good Safety Risks/Education Teaching Recipient: Patient Teaching Methods: Demonstration, Discussion Response to Teaching: Return Demonstration, Reinforcement Needed Education Topics Provided: Word-Finding Strategies Time Speech Therapy Time In: 09:00 Speech Therapy Time Out: 09:30 Total Billed Time: 30 Billed Treatment Time 1DAHLIA ELIZABETH ST Feb 03, 2017 09:52
[2017-02-03 10:26] VITALS: BP 148/88
--- NOTE | 2017-02-03 11:01 | PM & R (SOAP) Progress Note ---
Subjective Subjective/Events-last exam Patient was seen in GYM this AM Patient min assist for transfers and CGA for ambulation with quad cane Objective Exam Last Set of Vital Signs Vital Signs Date Time Temp Pulse Resp B/P Pulse Ox O2 Delivery O2 Flow Rate FiO2 02/03/17 09:17 Room Air 02/03/17 05:30 97.5 63 20 147/74 96 Capillary Refill : I&O Intake and Output 02/03/17 00:00 Intake Total 1170 ml Output Total 1125 ml Balance 45 ml Intake Oral 1170 ml Output Urine Total 1125 ml # Bowel Movements 1 General: Alert, Oriented X3, Cooperative, No Acute Distress HEENT: Atraumatic, PERRLA, EOMI, Mucous Memb Moist/[place], Other (rt labila droop ) Neck: Supple, No JVD Lungs: Clear to Auscultation Heart: Regular Rate Abdomen: Normal Bowel Sounds, Soft, No Tenderness Extremities: No Edema Neuro: Other (rt HP and mild cognitive impairment and word finding difficulty) Results Lab Laboratory Tests 01/31/17 11:15: Glucometer 99 01/31/17 15:37: Glucometer 128H 01/31/17 21:14: Glucometer 137H 02/01/17 06:12: Glucometer 121H 02/01/17 10:52: Glucometer 111H 02/01/17 15:47: Glucometer 124H 02/01/17 20:51: Glucometer 143H 02/02/17 05:45: Glucometer 115H 02/02/17 10:47: Glucometer 120H 02/02/17 15:50: Glucometer 118H 02/02/17 20:21: Glucometer 136H 02/03/17 05:14: Glucometer 118H Assessment/Plan Assessment Left CVA with RT HP HTN better controlled DM controlled -Diabetic education ordered Constipation treated Plan Continue PT/OT/ST Recheck Labs-done HTN meds adjusted earlier during stay with better control Constipation treated Team Conference held yesterday-See report for full functional update and POC and ELOS Appreciate Therapy notes and current labs DANIKA BRADLEY MD Feb 03, 2017 11:01
--- NOTE | 2017-02-03 11:16 | Physical Therapy Daily Note ---
PT Daily Note-Current Subjective Patient in recliner pre tx, agrees to PT, no complaints of pain. Appearance Patient in recliner post tx with nurse call, phone, tray, all needs met. Mental Status Patient Orientation: Person, Place, Situation Transfers Functional [place] Measure 0=Not Assessed/NA 4=Minimal Assistance 1=Total Assistance 5=Supervision or Setup 2=Maximal Assistance 6=Modified [place] 3=Moderate Assistance 7=Complete IndependenceIRFPAI Quality Coding Scale 6 Independent with activity with or without an assistive device 5 Patient requires set up or clean up by helper. Patient completes activity by themselves 4 Supervision or touching assist (CGA). [place] provide cues , steadying assist 3 The helper provides less than half the effort to complete the activity 2 The helper provides more than half the effort to complete the activity 1 Dependent. The helper does all the effort to complete an activity 7 Patient refused to complete or attempt activity 9 The patient did not perform the activity before the current illness or injury 88 Not attempted due to Medical conditions or safety concerns Transfers (B, C, W/C) (FIM): 4 Sit to/from Stand: 4 CGA for sit to stand, stand pivot with CGA to the left and CGA to min assist to the right Gait Training Gait (FIM): 4 Distance: 150'x3 Gait Level of Assist: 4 Gait Persons Needed: 1 Gait Assistive Device: Cane Large Base Quad selvin wrap on right ankle for dorsiflexion assist, min assist for balance, right knee hyperextension Stair Training Stair Training: Handrails/: 1 handrail Patient went up 4 steps and lost his balance to the right side and went down slowly with therapist assist and patient participation. He does have a small abrasion on his wrist on the right side, bandaid applied. Exercises Standing: Hip Abduction, Mini squats Standing Reps: 20 LAQ right side for 5 min NuStep Minutes: 20 NuStep Workload: 5 Treatments transfers, ambulation, functional strengthening, stair training Assessment Current Status: Fair Progress patient is improving with balance during ambulation, he requires less assist and has less losses of balance PT Short Term Goals Short Term Goals Time Frame: Feb 05, 2017 Transfers (B,C,W/C) (FIM): 4 Gait (FIM): 4 Distance (FIM): 3=150 ft Gait Assistive Device: Cane Large Base Quad Wheelchair Distance: 150'x2 Stairs (FIM): 2 # of Steps: 4 Stairs Level of Assist: 4 PT Care Home Goals Care Home Goals PT Care Home Goals Time Frame: Feb 19, 2017 Transfers (B,C,W/C) (FIM): 6 Sit to Lying (QC): 6 Lying-Sitting on Side/Bed(QC): 6 Sit to Stand (QC): 6 Rollin Roll Left to Right (QC): 6 Chair/Bhc-sy-Xxuuu Xfer(QC): 6 Car Transfer (QC): 6 Does the Patient Walk: Yes Gait (FIM): 5 (household) Gait distance (FIM): 0=096-87 ft Distance: 50 ft household Walk 10 feet (QC): 5 Walk 10ft-Uneven Surface(QC): 4 Walk 50ft with 2 Turns (QC): 5 Walk 150 ft (QC): 4 (asssit with this, CGA) Gait Assistive Device: Cane Large Base Quad Does the Pt use WC or Scooter?: Yes Wheelchair (FIM): 6 Wheelchair distance (FIM): 3=150 ft Wheel 50 feet with 2 turns (QC: 6 Stairs (FIM): 5 (household) # of Steps: 8 1 Step (curb) (QC): 5 4 Steps (QC): 5 12 Steps (QC): 5 Stairs Level Of Assist: 6 Picking up an Object (QC): 4 PT Plan Problem List Problem List: Activity Tolerance, Functional Strength, Safety, Balance, Gait, Transfer, Bed Mobility, ROM Treatment/Plan Treatment Plan: Continue Plan of Care Treatment Plan: Bed Mobility, Education, Functional Activity Delmy, Functional Strength, Group Therapy, Gait, Safety, Therapeutic Exercise, Transfers Treatment Duration: Feb 19, 2017 Visits Per Week: 10-*15 Minutes/Day (M-F): 60-90 Minutes/Day (Sat/Gonzalez): prn Safety Risks/Education Patient Education: Gait Training, Transfer Techniques, Steps, Safety Issues Teaching Recipient: Patient Teaching Methods: Demonstration, Discussion Response to Teaching: Reinforcement Needed Time/GCodes Time In: 1000 Time Out: 1115 Total Billed Treatment Time: 75 Total Billed Treatment 1 visit GT 30 min FA 15 min EX 30 min BROOKE WORLEY PT Feb 03, 2017 11:16
--- NOTE | 2017-02-03 12:56 | Occupational Ther Daily Note ---
OT Current Status-Daily Note Subjective Pt sitting in chair, agrees to treatment. Mental Status/Objective Functional [place] Measure 0=Not Assessed/NA 4=Minimal Assistance 1=Total Assistance 5=Supervision or Setup 2=Maximal Assistance 6=Modified [place] 3=Moderate Assistance 7=Complete [place] ADL-Treatment Functional [place] Measure 0=Not Assessed/NA 4=Minimal Assistance 1=Total Assistance 5=Supervision or Setup 2=Maximal Assistance 6=Modified [place] 3=Moderate Assistance 7=Complete IndependenceIRFPAI Quality Coding Scale 6 Independent with activity with or without an assistive device 5 Patient requires set up or clean up by helper. Patient completes activity by themselves 4 Supervision or touching assist (CGA). [place] provide cues , steadying assist 3 The helper provides less than half the effort to complete the activity 2 The helper provides more than half the effort to complete the activity 1 Dependent. The helper does all the effort to complete an activity 7 Patient refused to complete or attempt activity 9 The patient did not perform the activity before the current illness or injury 88 Not attempted due to Medical conditions or safety concerns Other Treatment Transfer recliner to w/c with minimal assistance. Pt performed w/c mobility to therapy gym with occasional cues to avoid objects on right side. Right UE ROM exercises completed to promote increased active ROM and strength. Pt demonstrates minimal shoulder elevation, retraction, and abduction/adduction. AAROM for elbow flexion in gravity eliminated position. PROM completed x10 reps for forearm pronation/supination and wrist flexion/extension. Pt demonstrates minimal finger flexion. No active finger extension or thumb movement noted. Pt requires frequent rest breaks between exercises secondary to fatigue. Pt returned to room, transferred to chair with minimal assistance. Pt sitting in chair eating lunch after session. OT Short Term Goals Short Term Goals Time Frame: Jan 29, 2017 Eating(FIM): 5 Grooming(FIM): 5 Bathing(FIM): 4 Upper Body Dressing(FIM): 4 Lower Body Dressing(FIM): 4 Toileting(FIM): 4 Transfers (B,C,W/C) (FIM): 4 Toilet/Commode Transfer(FIM): 4 Shower Transfer(FIM): 4 Additional Short Term Goals: 1-Demonstrate ADL Tasks, 2-Verbalize Understanding , 3-ImproveStrength/Delmy 1=Demonstrate adherence to instructed precautions during ADL tasks. 2=Patient will verbalize/demonstrate understanding of assistive devices/ modifications for ADL. 3=Patient will improve strength/tolerance for activity to enable patient to perform ADL's. OT Residential Goals Residential Goals Time Frame: Feb 12, 2017 Eating (FIM): 6 Eating (QC): 6 Groomin Oral Hygiene (QC): 6 Bathing(FIM): 5 Shower/Bathe Self (QC): 5 Upper Body Dressing(FIM): 6 Upper Body Dressing (QC): 6 Lower Body Dressing(FIM): 6 Lower Body Dressing (QC): 6 On/Off Footwear (QC): 6 Toileting(FIM): 6 Toileting Hygiene (QC): 6 Transfers (B,C,W/C) (FIM): 6 Toilet/Commode Transfer(FIM): 6 Toilet/Commode Transfer (QC): 6 Shower Transfer(FIM): 6 Additional Goals: 1-Demonstrate ADL Tasks, 2-Verbalize Understanding, 3- ImproveStrength/Delmy 1=Demonstrate adherence to instructed precautions during ADL tasks. 2=Patient will verbalize/demonstrate understanding of assistive devices/ modifications for ADL. 3=Patient will improve strength/tolerance for activity to enable patient to perform ADL's. OT Education/Plan Discharge Recommendations Plan/Recommendations: Continue POC Treatment Plan/Plan of Care Patient would benefit from OT for education, treatment and training to promote independence in ADL's, mobility, safety and/or upper extremity function for ADL' s. Plan of Care: ADL Retraining, Caregiver Training, Cognitive Retraining, Functional Mobility, Group Exercise/Act as Ind, UE Funct Exercise/Act Treatment Duration: Feb 12, 2017 Visits Per Week: 10-12 Minutes/Day (M-F): 60-90 Minutes/Day (Sat/Gonzalez): prn Agreement: Yes Rehab Potential: Good Time/GCodes Start Time: 11:35 Stop Time: 12:00 Total Time Billed (hr/min): 25 Billed Treatment Time 1 visit, NMx2(25minutes) JOSSIE GALVEZ OT Feb 03, 2017 12:56
[2017-02-03 18:27] VITALS: BP 156/76
[2017-02-03] MEDS: ATORVASTATIN 40 MG (LIPITOR) TABLET PO SCH (20:39)
[2017-02-03] MEDS: inSUlin DETERMIR 1 UNIT/0.01 ML (LEVEMIR) CHARGE PER UNIT SQ SCH (20:40)
[2017-02-04] MEDS: hydrALAZINE (APRESOLINE) 25 MG TAB PO SCH ×3 (05:58→21:41)
[2017-02-04] MEDS: inSUlin ASPART (NovoLOG) 1 UNIT/0.01 ML (CHARGE PER UNIT) SC SCH ×4 (05:59→21:00)
[2017-02-04 06:00] VITALS: BP 147/82
--- NOTE | 2017-02-04 07:55 | Progress Note (SOAP) ---
Subjective Subjective/Events-last exam CVA on right. Hypertension under control. Patient trying hard. Patient voices no complaints Objective Exam Vital Signs Date Time Temp Pulse Resp B/P Pulse Ox O2 Delivery O2 Flow Rate FiO2 02/04/17 06:00 98.7 56 18 147/82 95 Room Air 02/03/17 20:45 Room Air 02/03/17 18:27 97.9 69 16 156/76 97 02/03/17 09:17 Room Air I & O 02/04/17 07:00 Intake Total 1230 ml Balance 1230 ml Capillary Refill : General Appearance: No Apparent Distress WD/WN HEENT: Normal ENT Inspection Neck: Full Range of Motion Normal Inspection Respiratory: Chest Non Tender Lungs Clear Normal Breath Sounds No Accessory Muscle Use No Respiratory Distress Cardiovascular: Regular Rate, Rhythm No Murmur Gastrointestinal: non tender soft Results Lab Laboratory Tests 02/03/17 11:29: Glucometer 98 02/03/17 16:07: Glucometer 146H 02/03/17 20:25: Glucometer 147H 02/04/17 05:27: Glucometer 124H Assessment/Plan Assessment/Plan Assess & Plan/Chief Complaint CVA on right. Hypertension. Diabetes. Patient when asked questions has a slow thought process. Patient unable to sampler pickup right hand. Patient does move his right leg. . 01/24/17. CVA on right. Hypertension. Diabetes. Patient is improving. Patient positive. . 01/25/17. CVA on right. Hypertension. HCTZ added. Patient moving right extremities better. Patient improving. . 01/26/17 CVA Hypertension Patient moving left extremities better. Patient improving. Blood pressure better today than yesterday. . 3/Touche last . CVA on right. Hypertension. Diabetes. Control. Patient talking better. . 01/28/17. CVA on right. Hypertension. Diabetes. Patient continues to improve slowly. . 01/31/17. CVA on right. Hypertension better. Sugars good. Positive to do PT and OT.. . 02/01/17. CVA in right. Hypertension doing better. Patient's left leg doing better. Slow process with left hand. . 02/02/17. CVA on right. Hypertension.. Patient moving toes in right foot. Patient still not moving right hand. . 02/03/17. CVA on right. Hypertension. Blood pressure better. Patient now starting to move the right hand. Right leg getting stronger. Patient in the right direction. . 02/04/17. CVA in right. Hypertension. Patient working hard. Patient progressing Clinical Quality Measures DVT/VTE Risk/Contraindication: Risk Factor Score Per Nursin RFS Level Per Nursing on Admit: 4+=Very High BENJY SANTANA DO Feb 04, 2017 07:55
--- NOTE | 2017-02-04 08:05 | PM & R (SOAP) Progress Note ---
Subjective Subjective/Events-last exam Patient was seen in his room this AM Patient Min assist for transfers Progressing well with therapies Objective Exam Last Set of Vital Signs Vital Signs Date Time Temp Pulse Resp B/P Pulse Ox O2 Delivery O2 Flow Rate FiO2 02/04/17 06:00 98.7 56 18 147/82 95 Room Air Capillary Refill : I&O Intake and Output 02/04/17 00:00 Intake Total 1030 ml Balance 1030 ml Intake Oral 1030 ml # Voids 6 General: Alert, Oriented X3, Cooperative, No Acute Distress HEENT: Atraumatic, PERRLA, EOMI, Mucous Memb Moist/Counce, Other (rt labila droop ) Neck: Supple, No JVD Lungs: Clear to Auscultation Heart: Regular Rate Abdomen: Normal Bowel Sounds, Soft, No Tenderness Extremities: No Edema Neuro: Other (rt HP and mild cognitive impairment and word finding difficulty) Results Lab Laboratory Tests 02/01/17 10:52: Glucometer 111H 02/01/17 15:47: Glucometer 124H 02/01/17 20:51: Glucometer 143H 02/02/17 05:45: Glucometer 115H 02/02/17 10:47: Glucometer 120H 02/02/17 15:50: Glucometer 118H 02/02/17 20:21: Glucometer 136H 02/03/17 05:14: Glucometer 118H 02/03/17 11:29: Glucometer 98 02/03/17 16:07: Glucometer 146H 02/03/17 20:25: Glucometer 147H 02/04/17 05:27: Glucometer 124H Assessment/Plan Assessment Left CVA with RT HP HTN better controlled DM controlled -Diabetic education ordered Constipation treated Plan Continue PT/OT/ST Recheck Labs-done HTN meds adjusted earlier during stay with better control Constipation treated Team Conference held 02-02-17-See report for full functional update and POC and ELOS Appreciate Therapy notes and current labs DANIKA BRADLEY MD Feb 04, 2017 08:05
[2017-02-04] MEDS: HYDROCHLOROTHIAZIDE 25 MG (HCTZ) TAB PO SCH (08:16)
[2017-02-04] MEDS: ASPIRIN 325 MG (5 GR) TABLET PO SCH (08:16)
[2017-02-04] MEDS: amLODIPine 5 MG (NORVASC) TAB PO SCH (08:16)
[2017-02-04] MEDS: SENNA W/DOCUSATE (SENOKOT S) TABLET PO SCH ×2 (08:16→21:00)
[2017-02-04] MEDS: meTOprolol TARTRATE 25 MG (LOPRESSOR) TABLET PO SCH ×2 (08:16→21:41)
--- NOTE | 2017-02-04 09:56 | Occupational Ther Daily Note ---
OT Current Status-Daily Note Subjective Pt in bed, agrees to treatment. Pt has no c/o pain, but states he is tired this morning. States he has been doing ROM exercises while in bed since he woke up. Mental Status/Objective Functional [place] Measure 0=Not Assessed/NA 4=Minimal Assistance 1=Total Assistance 5=Supervision or Setup 2=Maximal Assistance 6=Modified [place] 3=Moderate Assistance 7=Complete [place] ADL-Treatment Pt supine to sit with minimal assistance without use of bed rails. Pt donned pullover shirt with set up and increased time. Pt donned Depends and and shorts with CGA for balance during standing for pant hike. Doff/don socks with SBA while seated. Transfer EOB to w/c with CGA to left side. Pt completed grooming tasks while seated at sink. Pt combed hair, brushed teeth, and washed face with set up. Functional [place] Measure 0=Not Assessed/NA 4=Minimal Assistance 1=Total Assistance 5=Supervision or Setup 2=Maximal Assistance 6=Modified [place] 3=Moderate Assistance 7=Complete IndependenceIRFPAI Quality Coding Scale 6 Independent with activity with or without an assistive device 5 Patient requires set up or clean up by helper. Patient completes activity by themselves 4 Supervision or touching assist (CGA). [place] provide cues , steadying assist 3 The helper provides less than half the effort to complete the activity 2 The helper provides more than half the effort to complete the activity 1 Dependent. The helper does all the effort to complete an activity 7 Patient refused to complete or attempt activity 9 The patient did not perform the activity before the current illness or injury 88 Not attempted due to Medical conditions or safety concerns Grooming (FIM): 5 Oral Hygiene (QC): 5 Upper Body (FIM): 5 Upper Body Dressing (QC): 5 Lower Body Dressing (FIM): 4 (CGA) Lower Body Dressing (QC): 4 (CGA) Other Treatment Pt performed w/c mobility to therapy gym with SBA. Pt completed right UE activity to promote increased active ROM. Pt working on horizontal abduction/ adduction with right UE sliding on tabletop. Abduction and shoulder flexion ROM x10 with pt assisting as able. Elbow flexion/extension completed using arm skate. Pt demonstrates active elbow flexion, has trace extension. PROM completed at forearm and wrist as pt has no active ROM in these movements. Pt demonstrates more consistent active finger flexion, but no active extension. Pt fatigues quickly with exercises and requires frequent rest breaks. Pt returned to room, transferred to chair with minimal assistance. Pt sitting with needs met after session. OT Short Term Goals Short Term Goals Time Frame: Jan 29, 2017 Eating(FIM): 5 Grooming(FIM): 5 Bathing(FIM): 4 Upper Body Dressing(FIM): 4 Lower Body Dressing(FIM): 4 Toileting(FIM): 4 Transfers (B,C,W/C) (FIM): 4 Toilet/Commode Transfer(FIM): 4 Shower Transfer(FIM): 4 Additional Short Term Goals: 1-Demonstrate ADL Tasks, 2-Verbalize Understanding , 3-ImproveStrength/Delmy 1=Demonstrate adherence to instructed precautions during ADL tasks. 2=Patient will verbalize/demonstrate understanding of assistive devices/ modifications for ADL. 3=Patient will improve strength/tolerance for activity to enable patient to perform ADL's. OT Detention Goals Grooving Machine Operator Goals Time Frame: Feb 12, 2017 Eating (FIM): 6 Eating (QC): 6 Groomin Oral Hygiene (QC): 6 Bathing(FIM): 5 Shower/Bathe Self (QC): 5 Upper Body Dressing(FIM): 6 Upper Body Dressing (QC): 6 Lower Body Dressing(FIM): 6 Lower Body Dressing (QC): 6 On/Off Footwear (QC): 6 Toileting(FIM): 6 Toileting Hygiene (QC): 6 Transfers (B,C,W/C) (FIM): 6 Toilet/Commode Transfer(FIM): 6 Toilet/Commode Transfer (QC): 6 Shower Transfer(FIM): 6 Additional Goals: 1-Demonstrate ADL Tasks, 2-Verbalize Understanding, 3- ImproveStrength/Delmy 1=Demonstrate adherence to instructed precautions during ADL tasks. 2=Patient will verbalize/demonstrate understanding of assistive devices/ modifications for ADL. 3=Patient will improve strength/tolerance for activity to enable patient to perform ADL's. OT Education/Plan Discharge Recommendations Plan/Recommendations: Continue POC Treatment Plan/Plan of Care Patient would benefit from OT for education, treatment and training to promote independence in ADL's, mobility, safety and/or upper extremity function for ADL' s. Plan of Care: ADL Retraining, Caregiver Training, Cognitive Retraining, Functional Mobility, Group Exercise/Act as Ind, UE Funct Exercise/Act Treatment Duration: Feb 12, 2017 Visits Per Week: 10-12 Minutes/Day (M-F): 60-90 Minutes/Day (Sat/Gonzalez): prn Agreement: Yes Rehab Potential: Good Time/GCodes Start Time: 08:00 Stop Time: 09:00 Total Time Billed (hr/min): 60 Billed Treatment Time 1 visit, ADLx2(25minutes), NMx2(35minutes) JOSSIE GALVEZ OT Feb 04, 2017 09:56
--- NOTE | 2017-02-04 10:59 | Physical Therapy Daily Note ---
PT Daily Note-Current Subjective Patient in recliner pre tx, agrees to PT. Patient has no complaints of pain. Appearance Patient in recliner post tx, with nurse call, phone, tray, all needs met. Mental Status Patient Orientation: Normal For Age Transfers Functional [place] Measure 0=Not Assessed/NA 4=Minimal Assistance 1=Total Assistance 5=Supervision or Setup 2=Maximal Assistance 6=Modified [place] 3=Moderate Assistance 7=Complete IndependenceIRFPAI Quality Coding Scale 6 Independent with activity with or without an assistive device 5 Patient requires set up or clean up by helper. Patient completes activity by themselves 4 Supervision or touching assist (CGA). [place] provide cues , steadying assist 3 The helper provides less than half the effort to complete the activity 2 The helper provides more than half the effort to complete the activity 1 Dependent. The helper does all the effort to complete an activity 7 Patient refused to complete or attempt activity 9 The patient did not perform the activity before the current illness or injury 88 Not attempted due to Medical conditions or safety concerns Transfers (B, C, W/C) (FIM): 4 Scootin Rollin Supine to/from Sit: 6 Sit to/from Stand: 4 Bed to/from Chair: 4 stand pivot CGA to the left and barely min assist to the right, patient needs cues for hand placement with sit to stand Gait Training Gait (FIM): 4 Distance: 300'x2 Gait Level of Assist: 4 Gait Persons Needed: 1 Gait Assistive Device: Cane Large Base Quad selvin wrap on right ankle for dorsiflexion assist, min assist for balance, patient has shown recent improvement and has less losses of balance on average, hyperextension of right knee Exercises SAQ right side for 5 min, supine right knee fallouts x 20, bridging x 20 NuStep Minutes: 15 NuStep Workload: 5 Treatments ambulation, bed mobility and transfers, functional strengthening Assessment Current Status: Fair Progress improving endurance and balance PT Short Term Goals Short Term Goals Time Frame: Feb 05, 2017 Transfers (B,C,W/C) (FIM): 4 Gait (FIM): 4 Distance (FIM): 3=150 ft Gait Assistive Device: Cane Large Base Quad Wheelchair Distance: 150'x2 Stairs (FIM): 2 # of Steps: 4 Stairs Level of Assist: 4 PT Landscaping Supervisor Goals Custodial Goals PT Landscaping Supervisor Goals Time Frame: Feb 19, 2017 Transfers (B,C,W/C) (FIM): 6 Sit to Lying (QC): 6 Lying-Sitting on Side/Bed(QC): 6 Sit to Stand (QC): 6 Rollin Roll Left to Right (QC): 6 Chair/Ggg-ox-Plscd Xfer(QC): 6 Car Transfer (QC): 6 Does the Patient Walk: Yes Gait (FIM): 5 (household) Gait distance (FIM): 2=342-22 ft Distance: 50 ft household Walk 10 feet (QC): 5 Walk 10ft-Uneven Surface(QC): 4 Walk 50ft with 2 Turns (QC): 5 Walk 150 ft (QC): 4 (asssit with this, CGA) Gait Assistive Device: Cane Large Base Quad Does the Pt use WC or Scooter?: Yes Wheelchair (FIM): 6 Wheelchair distance (FIM): 3=150 ft Wheel 50 feet with 2 turns (QC: 6 Stairs (FIM): 5 (household) # of Steps: 8 1 Step (curb) (QC): 5 4 Steps (QC): 5 12 Steps (QC): 5 Stairs Level Of Assist: 6 Picking up an Object (QC): 4 PT Plan Problem List Problem List: Activity Tolerance, Functional Strength, Safety, Balance, Gait, Transfer Treatment/Plan Treatment Plan: Continue Plan of Care Treatment Plan: Bed Mobility, Education, Functional Activity Delmy, Functional Strength, Group Therapy, Gait, Safety, Therapeutic Exercise, Transfers Treatment Duration: Feb 19, 2017 Visits Per Week: 10-*15 Minutes/Day (M-F): 60-90 Minutes/Day (Sat/Gonzalez): prn Safety Risks/Education Patient Education: Gait Training, Transfer Techniques, Correct Positioning, Safety Issues Teaching Recipient: Patient Teaching Methods: Demonstration, Discussion Response to Teaching: Reinforcement Needed Time/GCodes Time In: 1000 Time Out: 1100 Total Billed Treatment Time: 60 Total Billed Treatment 1 visit EX 30 min GT 30 min BROOKE WORLEY PT Feb 04, 2017 10:59
--- NOTE | 2017-02-04 11:56 | Speech Therapy Daily Note ---
Speech Daily Progress Note Subjective The patient was seated upright in the recliner upon entrance. The patient greeted the clinician and agreed to participate in the speech and language evaluation on this date. To note, the patient stated he recently completed OT ( showered) and is fatigued. Objective Word-Finding: The patient was provided three words by the clinician. The patient was asked to name the category and provide one additional word that " fit into" the category appropriately. The patient demonstrated moderate difficulty with this task on this date, displaying 70% accuracy with significant word-finding halts and moderate clinician verbal cueing. Assessment Assessment Current Status: Fair Progress Treatment Plan Continue Plan of Care Communication Comprehension: 5 Expression: 4 Social Cognition Social Interaction: 5 Problem Solvin Memory: 4 Speech Short Term Goals Short Term Goals Short Term Goals 1. The patient will demonstrated 80% accuracy throughout structured word- finding tasks, independently. 2. The patient will recall and demonstrate two functional memory strategies for use at home, independently. Time Frame-STG: Two Weeks Speech Shelter Goals Android Platform Developer Goals 1. The patient will demonstrated improved expressive communication and cognitive skills for increased function and safety with ADL's. Time Frame: Four Weeks Speech-Plan Treatment Plan Speech Therapy Treatment Plan: Continue Plan of Care Continue skilled speech pathology to target functional problem solving and memory strategies. Treatment Duration: Feb 21, 2017 # of days/week Four to five. Visits Per Week: Four to five. Minutes/Day (M-F): 30 Rehab Potential: Good Safety Risks/Education Teaching Recipient: Patient Teaching Methods: Discussion Response to Teaching: Verbalize Understanding Education Topics Provided: Progression Towards Goals Time Speech Therapy Time In: 09:00 Speech Therapy Time Out: 09:30 Total Billed Time: 30 Billed Treatment Time 1DAHLIA ELIZABETH ST Feb 04, 2017 11:56
--- NOTE | 2017-02-04 15:30 | Therapy Group Daily Note ---
Therapy Daily Group Note Patient Education Topic Other List Below (ARU Description) Exercises LE Seated Exercise, UE Exercise Other/Notes Pt participated in PT/OT Group in Therapy [facility] area. Pt propels self to Group via [facility]. Group consisted of Intro. (Name, [place]/Where You Live, Favorite Childhood Memory), Socialization, UE/LE Ex, Memory Recall for Peer Memories shared and Name that Tune Recall. Pt actively participates in Group by naming songs and performing Ex. PT assists pt in returning to room. At end of tx, pt left with all needs met. Start Time: 13:00 Stop Time: 14:00 Total Billed Treatment Time: 60 Total Billed Treatment 1, GRP CATHERINE WHITEHEAD IMPORT/EXPORT AGENT Feb 04, 2017 15:30
[2017-02-04 18:39] VITALS: BP 144/71
[2017-02-04] MEDS: ATORVASTATIN 40 MG (LIPITOR) TABLET PO SCH (21:41)
[2017-02-04] MEDS: inSUlin DETERMIR 1 UNIT/0.01 ML (LEVEMIR) CHARGE PER UNIT SQ SCH (21:42)
[2017-02-05 06:00] VITALS: BP 153/79
[2017-02-05] MEDS: inSUlin ASPART (NovoLOG) 1 UNIT/0.01 ML (CHARGE PER UNIT) SC SCH ×4 (06:00→21:00)
[2017-02-05] MEDS: hydrALAZINE (APRESOLINE) 25 MG TAB PO SCH ×3 (06:07→21:12)
[2017-02-05] MEDS: SENNA W/DOCUSATE (SENOKOT S) TABLET PO SCH ×2 (09:00→21:12)
--- NOTE | 2017-02-05 09:26 | Physical Therapy Daily Note ---
PT Daily Note-Current Subjective Pt is supine in bed upon arrival. Pt agrees to PT. PT assists pt with donning pants for tx. Pain Numeric Pain Scale: 3 Location: Left Pain Description: Ache Comment: Pain in LLE with Ex due to weakness. Mental Status Patient Orientation: Person, Place, Time, Situation Transfers Functional [place] Measure 0=Not Assessed/NA 4=Minimal Assistance 1=Total Assistance 5=Supervision or Setup 2=Maximal Assistance 6=Modified [place] 3=Moderate Assistance 7=Complete IndependenceIRFPAI Quality Coding Scale 6 Independent with activity with or without an assistive device 5 Patient requires set up or clean up by helper. Patient completes activity by themselves 4 Supervision or touching assist (CGA). [place] provide cues , steadying assist 3 The helper provides less than half the effort to complete the activity 2 The helper provides more than half the effort to complete the activity 1 Dependent. The helper does all the effort to complete an activity 7 Patient refused to complete or attempt activity 9 The patient did not perform the activity before the current illness or injury 88 Not attempted due to Medical conditions or safety concerns Transfers (B, C, W/C) (FIM): 4 Scootin Rollin Supine to/from Sit: 4 Sit to/from Stand: 4 Sit to Stand (QC): 4 Chair/Euq-ja-Srpeo Xfer(QC): 4 Bed to/from Chair: 4 Weight Bearing Weight Bearing Restriction: Full Weight Bearing Location Restriction: LE Bilateral Wheelchair Training Does the Pt Use a Wheelchair?: Yes Wheelchair Distance: 2=312-26 ft Distance: 80' Wheelchair Level of Assist: 6 Wheel 50 ft with 2 turns (QC): 6 Type of Wheelchair: Manual Exercises Standing: Marching, Mini squats, Step-ups (7 reps) Standing Reps: 15 Treatments Pt donns his pants with PT assistance. Pt transfers to [facility] towards L side at CGA. Pt propels to Therapy Gym and performs Standing EX at //bars. Pt propels back to room at end of tx. with all needs met. Assessment Current Status: Good Progress Pt is motivated and tries to complete tasks as independently as possible. Pt continues to have weakness in both RUE as well as R dorsiflexors. PT Short Term Goals Short Term Goals Time Frame: Feb 05, 2017 Transfers (B,C,W/C) (FIM): 4 Gait (FIM): 4 Distance (FIM): 3=150 ft Gait Assistive Device: Cane Large Base Quad Wheelchair Distance: 150'x2 Stairs (FIM): 2 # of Steps: 4 Stairs Level of Assist: 4 PT Engineering Faculty Goals Retirement Goals PT Retirement Goals Time Frame: Feb 19, 2017 Transfers (B,C,W/C) (FIM): 6 Sit to Lying (QC): 6 Lying-Sitting on Side/Bed(QC): 6 Sit to Stand (QC): 6 Rollin Roll Left to Right (QC): 6 Chair/Uqy-mv-Fzbqc Xfer(QC): 6 Car Transfer (QC): 6 Does the Patient Walk: Yes Gait (FIM): 5 (household) Gait distance (FIM): 5=230-48 ft Distance: 50 ft household Walk 10 feet (QC): 5 Walk 10ft-Uneven Surface(QC): 4 Walk 50ft with 2 Turns (QC): 5 Walk 150 ft (QC): 4 (asssit with this, CGA) Gait Assistive Device: Cane Large Base Quad Does the Pt use WC or Scooter?: Yes Wheelchair (FIM): 6 Wheelchair distance (FIM): 3=150 ft Wheel 50 feet with 2 turns (QC: 6 Stairs (FIM): 5 (household) # of Steps: 8 1 Step (curb) (QC): 5 4 Steps (QC): 5 12 Steps (QC): 5 Stairs Level Of Assist: 6 Picking up an Object (QC): 4 PT Plan Problem List Problem List: Activity Tolerance, Functional Strength, Safety, Balance, Gait, Transfer Treatment/Plan Treatment Plan: Continue Plan of Care Treatment Plan: Bed Mobility, Education, Functional Activity Delmy, Functional Strength, Group Therapy, Gait, Safety, Therapeutic Exercise, Transfers Treatment Duration: Feb 19, 2017 Visits Per Week: 10-*15 Minutes/Day (M-F): 60-90 Minutes/Day (Sat/Gonzalez): prn Safety Risks/Education Patient Education: Gait Training, Transfer Techniques, Correct Positioning, Safety Issues Teaching Recipient: Patient Teaching Methods: Discussion Response to Teaching: Verbalize Understanding Time/GCodes Time In: 750 Time Out: 820 Total Billed Treatment Time: 30 Total Billed Treatment visit, FA (15m) & EX (15m) CATHERINE WHITEHEAD PTA Feb 05, 2017 09:26
[2017-02-05] MEDS: HYDROCHLOROTHIAZIDE 25 MG (HCTZ) TAB PO SCH (09:42)
[2017-02-05] MEDS: amLODIPine 5 MG (NORVASC) TAB PO SCH (09:42)
[2017-02-05] MEDS: meTOprolol TARTRATE 25 MG (LOPRESSOR) TABLET PO SCH ×2 (09:42→21:13)
[2017-02-05] MEDS: ASPIRIN 325 MG (5 GR) TABLET PO SCH (09:42)
[2017-02-05 18:30] VITALS: BP 102/55
[2017-02-05] MEDS: ATORVASTATIN 40 MG (LIPITOR) TABLET PO SCH (21:13)
[2017-02-05] MEDS: inSUlin DETERMIR 1 UNIT/0.01 ML (LEVEMIR) CHARGE PER UNIT SQ SCH (21:13)
[2017-02-05 21:16] VITALS: BP 147/69
[2017-02-06 05:28] VITALS: BP 147/64
[2017-02-06] MEDS: inSUlin ASPART (NovoLOG) 1 UNIT/0.01 ML (CHARGE PER UNIT) SC SCH ×4 (05:31→20:38)
[2017-02-06] MEDS: hydrALAZINE (APRESOLINE) 25 MG TAB PO SCH ×3 (06:17→20:43)
[2017-02-06] MEDS: meTOprolol TARTRATE 25 MG (LOPRESSOR) TABLET PO SCH ×2 (10:19→20:43)
[2017-02-06] MEDS: ASPIRIN 325 MG (5 GR) TABLET PO SCH (10:19)
[2017-02-06] MEDS: SENNA W/DOCUSATE (SENOKOT S) TABLET PO SCH ×2 (10:20→20:43)
[2017-02-06] MEDS: HYDROCHLOROTHIAZIDE 25 MG (HCTZ) TAB PO SCH (10:20)
[2017-02-06] MEDS: amLODIPine 5 MG (NORVASC) TAB PO SCH (10:20)
[2017-02-06 18:00] VITALS: BP 166/79
[2017-02-06] MEDS: inSUlin DETERMIR 1 UNIT/0.01 ML (LEVEMIR) CHARGE PER UNIT SQ SCH (20:43)
[2017-02-06] MEDS: ATORVASTATIN 40 MG (LIPITOR) TABLET PO SCH (20:43)
[2017-02-07 05:26] VITALS: BP 153/81
[2017-02-07] MEDS: hydrALAZINE (APRESOLINE) 25 MG TAB PO SCH ×3 (05:33→22:12)
[2017-02-07] MEDS: inSUlin ASPART (NovoLOG) 1 UNIT/0.01 ML (CHARGE PER UNIT) SC SCH ×4 (05:33→22:12)
[2017-02-07] MEDS: meTOprolol TARTRATE 25 MG (LOPRESSOR) TABLET PO SCH ×2 (08:10→20:13)
[2017-02-07] MEDS: ASPIRIN 325 MG (5 GR) TABLET PO SCH (08:10)
[2017-02-07] MEDS: HYDROCHLOROTHIAZIDE 25 MG (HCTZ) TAB PO SCH (08:10)
[2017-02-07] MEDS: amLODIPine 5 MG (NORVASC) TAB PO SCH (08:10)
[2017-02-07] MEDS: SENNA W/DOCUSATE (SENOKOT S) TABLET PO SCH ×2 (08:10→20:14)
--- NOTE | 2017-02-07 08:28 | Progress Note (SOAP) ---
Subjective Subjective/Events-last exam CVA. Hypertension. Patient slowly improving Objective Exam Vital Signs Date Time Temp Pulse Resp B/P Pulse Ox O2 Delivery O2 Flow Rate FiO2 02/07/17 05:26 98.0 57 18 153/81 95 Room Air 02/06/17 21:21 Room Air 02/06/17 18:00 99.0 62 18 166/79 98 Room Air 02/06/17 09:00 Room Air I & O 02/07/17 07:00 Intake Total 1470 ml Output Total 1200 ml Balance 270 ml Capillary Refill : General Appearance: No Apparent Distress WD/WN (which one will go He was see 32although see 30) HEENT: Normal ENT Inspection Neck: Full Range of Motion Respiratory: Chest Non Tender Lungs Clear Normal Breath Sounds No Accessory Muscle Use No Respiratory Distress Cardiovascular: Regular Rate, Rhythm No Murmur Gastrointestinal: non tender soft Results Lab Laboratory Tests 02/06/17 12:03: Glucometer 110 02/06/17 20:37: Glucometer 183H 02/07/17 05:30: Glucometer 126H Assessment/Plan Assessment/Plan Assess & Plan/Chief Complaint CVA on right. Hypertension. Diabetes. Patient when asked questions has a slow thought process. Patient unable to turkey picker right hand. Patient does move his right leg. . 01/24/17. CVA on right. Hypertension. Diabetes. Patient is improving. Patient positive. . 01/25/17. CVA on right. Hypertension. HCTZ added. Patient moving right extremities better. Patient improving. . 01/26/17 CVA Hypertension Patient moving left extremities better. Patient improving. Blood pressure better today than yesterday. . 3/Touche last . CVA on right. Hypertension. Diabetes. Control. Patient talking better. . 01/28/17. CVA on right. Hypertension. Diabetes. Patient continues to improve slowly. . 01/31/17. CVA on right. Hypertension better. Sugars good. Positive to do PT and OT.. . 02/01/17. CVA in right. Hypertension doing better. Patient's left leg doing better. Slow process with left hand. . 02/02/17. CVA on right. Hypertension.. Patient moving toes in right foot. Patient still not moving right hand. . 02/03/17. CVA on right. Hypertension. Blood pressure better. Patient now starting to move the right hand. Right leg getting stronger. Patient in the right direction. . 02/04/17. CVA in right. Hypertension. Patient working hard. Patient progressing. . 02/07/17 Patient working hard. CVA. Hypertension. Patient moving right leg better. Patient struggling with right upper extremity Clinical Quality Measures DVT/VTE Risk/Contraindication: Risk Factor Score Per Nursin RFS Level Per Nursing on Admit: 4+=Very High BENJY SANTANA DO Feb 07, 2017 08:28
--- NOTE | 2017-02-07 08:48 | Occupational Ther Daily Note ---
OT Current Status-Daily Note Subjective Pt alert, sitting in chair eating breakfast. Pt agreed to therapy. No c/o pain at this time. Mental Status/Objective Patient Orientation: Person, Place, Time, Situation Functional [place] Measure 0=Not Assessed/NA 4=Minimal Assistance 1=Total Assistance 5=Supervision or Setup 2=Maximal Assistance 6=Modified [place] 3=Moderate Assistance 7=Complete [place] ADL-Treatment Functional [place] Measure 0=Not Assessed/NA 4=Minimal Assistance 1=Total Assistance 5=Supervision or Setup 2=Maximal Assistance 6=Modified [place] 3=Moderate Assistance 7=Complete IndependenceIRFPAI Quality Coding Scale 6 Independent with activity with or without an assistive device 5 Patient requires set up or clean up by helper. Patient completes activity by themselves 4 Supervision or touching assist (CGA). [place] provide cues , steadying assist 3 The helper provides less than half the effort to complete the activity 2 The helper provides more than half the effort to complete the activity 1 Dependent. The helper does all the effort to complete an activity 7 Patient refused to complete or attempt activity 9 The patient did not perform the activity before the current illness or injury 88 Not attempted due to Medical conditions or safety concerns Grooming (FIM): 6 (At w/c level in front of sink, pt is able to complete own grooming skills.) Oral Hygiene (QC): 6 (At w/c level in front of sink, pt is able to complete oral hygiene.) Bathing (FIM): 5 (Using shower bench, grabbars and hand held shower pt is able to complete with supervision. Pt leans toward side to cleanse buttocks.) Bathing Location: L Arm, R Arm, L Upper Leg, R Upper Leg, L Lower Leg ( including foot), R Lower Leg (including foot), Chest, Abdomen, Buttocks, Perineal Area Upper Body (FIM): 4 (After set up, pt required assistance to manipulate long sleeve shirt over R hand then was able to complete by self.) Lower Body Dressing (FIM): 4 (Pt required CGA to doff pants over R foot. After set up, pt required CGA in standing to hike pants over hips. Pt able to don socks using one handed technique while crossing one leg over the other.) Transfers (B, C, W/C) (FIM): 4 (Stand pivot transfer to/from w/c CGA.) Shower Transfer(FIM): 4 (Using grabbars and shower bench pt transferred to/ from w/c with CGA.) Other Treatment Pt maneuvered w/c from room to therapy gym by self. AAROM completed for shldr elevation and protraction, trace movements. Electrical stim for wrist and finger flex/ext then completed active finger flexion to grasp table top edge then relax muscles. After therapy, pt sitting in w/c in room with call light/ phone in reach. All needs met in room. OT Short Term Goals Short Term Goals Time Frame: Jan 29, 2017 Eating(FIM): 5 Grooming(FIM): 5 Bathing(FIM): 4 Upper Body Dressing(FIM): 4 Lower Body Dressing(FIM): 4 Toileting(FIM): 4 Transfers (B,C,W/C) (FIM): 4 Toilet/Commode Transfer(FIM): 4 Shower Transfer(FIM): 4 Additional Short Term Goals: 1-Demonstrate ADL Tasks, 2-Verbalize Understanding , 3-ImproveStrength/Delmy 1=Demonstrate adherence to instructed precautions during ADL tasks. 2=Patient will verbalize/demonstrate understanding of assistive devices/ modifications for ADL. 3=Patient will improve strength/tolerance for activity to enable patient to perform ADL's. OT Halfway Goals Halfway Goals Time Frame: Feb 12, 2017 Eating (FIM): 6 Eating (QC): 6 Groomin Oral Hygiene (QC): 6 Bathing(FIM): 5 Shower/Bathe Self (QC): 5 Upper Body Dressing(FIM): 6 Upper Body Dressing (QC): 6 Lower Body Dressing(FIM): 6 Lower Body Dressing (QC): 6 On/Off Footwear (QC): 6 Toileting(FIM): 6 Toileting Hygiene (QC): 6 Transfers (B,C,W/C) (FIM): 6 Toilet/Commode Transfer(FIM): 6 Toilet/Commode Transfer (QC): 6 Shower Transfer(FIM): 6 Additional Goals: 1-Demonstrate ADL Tasks, 2-Verbalize Understanding, 3- ImproveStrength/Delmy 1=Demonstrate adherence to instructed precautions during ADL tasks. 2=Patient will verbalize/demonstrate understanding of assistive devices/ modifications for ADL. 3=Patient will improve strength/tolerance for activity to enable patient to perform ADL's. OT Education/Plan Discharge Recommendations Plan/Recommendations: Continue POC Treatment Plan/Plan of Care Patient would benefit from OT for education, treatment and training to promote independence in ADL's, mobility, safety and/or upper extremity function for ADL' s. Plan of Care: ADL Retraining, Caregiver Training, Cognitive Retraining, Functional Mobility, Group Exercise/Act as Ind, UE Funct Exercise/Act Treatment Duration: Feb 12, 2017 Visits Per Week: 10-12 Minutes/Day (M-F): 60-90 Minutes/Day (Sat/Gonzalez): prn Agreement: Yes Rehab Potential: Good Time/GCodes Start Time: 07:15 Stop Time: 08:30 Total Time Billed (hr/min): 75 Billed Treatment Time 1 visit-ADL 3 (45min) EX 2 (30 min) CHULA NGUYỄN Feb 07, 2017 08:48
--- NOTE | 2017-02-07 10:55 | Physical Therapy Daily Note ---
PT Daily Note-Current Subjective Patient in recliner pre tx, agrees to PT. Patient has no complaints of pain. Appearance Patient in recliner post tx with nurse call, phone, tray, all needs met. Mental Status Patient Orientation: Normal For Age Transfers Functional [place] Measure 0=Not Assessed/NA 4=Minimal Assistance 1=Total Assistance 5=Supervision or Setup 2=Maximal Assistance 6=Modified [place] 3=Moderate Assistance 7=Complete IndependenceIRFPAI Quality Coding Scale 6 Independent with activity with or without an assistive device 5 Patient requires set up or clean up by helper. Patient completes activity by themselves 4 Supervision or touching assist (CGA). [place] provide cues , steadying assist 3 The helper provides less than half the effort to complete the activity 2 The helper provides more than half the effort to complete the activity 1 Dependent. The helper does all the effort to complete an activity 7 Patient refused to complete or attempt activity 9 The patient did not perform the activity before the current illness or injury 88 Not attempted due to Medical conditions or safety concerns Transfers (B, C, W/C) (FIM): 4 Sit to/from Stand: 4 Patient performs a stand pivot transfer with CGA to the left and min assist to the right. Cues for safety and hand placement. Gait Training Gait (FIM): 4 Distance: 300'x2 Gait Level of Assist: 4 Gait Persons Needed: 1 Gait Assistive Device: Cane Large Base Quad Right selvin wrap on ankle for dorsiflexion assist. Min assist during ambulation for balance. Right knee hyperextension. Exercises bridging x 20, right knee fallouts x 20, manually resisted right leg press 3 sets of 10 NuStep Minutes: 15 NuStep Workload: 5 Treatments bed mobility and transfers, ambulation, functional strengthening, balance training Assessment Patient's progress has slowed down quite a bit. He may have reached a plateau with his mobility at this time. PT Short Term Goals Short Term Goals Time Frame: Feb 05, 2017 Transfers (B,C,W/C) (FIM): 4 Gait (FIM): 4 Distance (FIM): 3=150 ft Gait Assistive Device: Cane Large Base Quad Wheelchair Distance: 80' Stairs (FIM): 2 # of Steps: 4 Stairs Level of Assist: 4 PT Tenant Selector Goals Tenant Selector Goals PT Assisted Goals Time Frame: Feb 19, 2017 Transfers (B,C,W/C) (FIM): 6 Sit to Lying (QC): 6 Lying-Sitting on Side/Bed(QC): 6 Sit to Stand (QC): 6 Rollin Roll Left to Right (QC): 6 Chair/Idy-pp-[place] Xfer(QC): 6 Car Transfer (QC): 6 Does the Patient Walk: Yes Gait (FIM): 5 (household) Gait distance (FIM): 7=763-61 ft Distance: 50 ft household Walk 10 feet (QC): 5 Walk 10ft-Uneven Surface(QC): 4 Walk 50ft with 2 Turns (QC): 5 Walk 150 ft (QC): 4 (asssit with this, CGA) Gait Assistive Device: Cane Large Base Quad Does the Pt use WC or Scooter?: Yes Wheelchair (FIM): 6 Wheelchair distance (FIM): 3=150 ft Wheel 50 feet with 2 turns (QC: 6 Stairs (FIM): 5 (household) # of Steps: 8 1 Step (curb) (QC): 5 4 Steps (QC): 5 12 Steps (QC): 5 Stairs Level Of Assist: 6 Picking up an Object (QC): 4 PT Plan Problem List Problem List: Activity Tolerance, Functional Strength, Safety, Balance, Gait, Transfer, Bed Mobility, ROM Treatment/Plan Treatment Plan: Continue Plan of Care Treatment Plan: Bed Mobility, Education, Functional Activity Delmy, Functional Strength, Group Therapy, Gait, Safety, Therapeutic Exercise, Transfers Treatment Duration: Feb 19, 2017 Visits Per Week: 10-*15 Minutes/Day (M-F): 60-90 Minutes/Day (Sat/Gonzalez): prn Safety Risks/Education Patient Education: Gait Training, Transfer Techniques, Correct Positioning, Safety Issues Teaching Recipient: Patient Teaching Methods: Demonstration, Discussion Response to Teaching: Reinforcement Needed Time/GCodes Time In: 1000 Time Out: 1100 Total Billed Treatment Time: 60 Total Billed Treatment 1 visit EX 30 min GT 30 min BROOKE WORLEY PT Feb 07, 2017 10:55
--- NOTE | 2017-02-07 11:41 | Speech Therapy Daily Note ---
Speech Daily Progress Note Subjective The patient was seated upright in wheelchair upon entrance. The patient greeted the clinician appropriately and agreed to participate in the speech and language treatment session on this date. Objective Word-Finding: The patient was provided three words by the clinician. The patient was asked to name the category and provide one additional word that " fit into" the category appropriately. The patient demonstrated mild difficulty with this task on this date, displaying 90% accuracy with a reduction of significant word-finding halts and mild clinician verbal cueing. Picture Description: The patient demonstrated fair accuracy with this task, displaying intermittent word-finding pauses and halts. Assessment Assessment Current Status: Good Progress Treatment Plan Continue Plan of Care Communication Comprehension: 5 Expression: 4 Social Cognition Social Interaction: 5 Problem Solvin Memory: 5 Speech Short Term Goals Short Term Goals Short Term Goals 1. The patient will demonstrated 80% accuracy throughout structured word- finding tasks, independently. 2. The patient will recall and demonstrate two functional memory strategies for use at home, independently. Time Frame-STG: Two Weeks Speech Longterm Goals Longterm Goals 1. The patient will demonstrated improved expressive communication and cognitive skills for increased function and safety with ADL's. Time Frame: Four Weeks Speech-Plan Treatment Plan Speech Therapy Treatment Plan: Continue Plan of Care Continue skilled speech therapy to target functional expressive communication. Treatment Duration: Feb 21, 2017 # of days/week Four to five. Visits Per Week: Four to five. Minutes/Day (M-F): 30 Rehab Potential: Good Safety Risks/Education Teaching Recipient: Patient Teaching Methods: Discussion Response to Teaching: Verbalize Understanding, Return Demonstration Education Topics Provided: Circumlocution Strategies Time Speech Therapy Time In: 09:00 Speech Therapy Time Out: 09:30 Total Billed Time: 30 Billed Treatment Time DarrylDAHLIA ELIZABETH ST Feb 07, 2017 11:41
--- NOTE | 2017-02-07 13:32 | Physical Therapy Daily Note ---
PT Daily Note-Current Subjective Patient in recliner pre tx, agrees to PT, no complaints of pain. Appearance Patient in recliner post tx with nurse call, phone, tray, all needs met. Mental Status Patient Orientation: Person, Place, Situation Transfers Functional [place] Measure 0=Not Assessed/NA 4=Minimal Assistance 1=Total Assistance 5=Supervision or Setup 2=Maximal Assistance 6=Modified [place] 3=Moderate Assistance 7=Complete IndependenceIRFPAI Quality Coding Scale 6 Independent with activity with or without an assistive device 5 Patient requires set up or clean up by helper. Patient completes activity by themselves 4 Supervision or touching assist (CGA). [place] provide cues , steadying assist 3 The helper provides less than half the effort to complete the activity 2 The helper provides more than half the effort to complete the activity 1 Dependent. The helper does all the effort to complete an activity 7 Patient refused to complete or attempt activity 9 The patient did not perform the activity before the current illness or injury 88 Not attempted due to Medical conditions or safety concerns Transfers (B, C, W/C) (FIM): 4 Sit to/from Stand: 4 Gait Training Gait (FIM): 4 Distance: 300'x2 Gait Level of Assist: 4 Gait Persons Needed: 1 Gait Assistive Device: Cane Large Base Quad [place] wrap on right ankle dorsiflexion assist, min assist for balance, right knee hyperextension Stair Training Stair Training: Handrails/: 1 handrail Stairs (FIM): 4 #of Steps: 12 Stairs: Pattern: Step to Level of Assist: 4 min assist for balance, cues for safety and foot placement Treatments transfers, ambulation, stair training Assessment Current Status: Fair Progress improved performance with stairs PT Short Term Goals Short Term Goals Time Frame: Feb 05, 2017 Transfers (B,C,W/C) (FIM): 4 Gait (FIM): 4 Distance (FIM): 3=150 ft Gait Assistive Device: Cane Large Base Quad Wheelchair Distance: 80' Stairs (FIM): 2 # of Steps: 4 Stairs Level of Assist: 4 PT Risk Control Representative Goals Risk Control Representative Goals PT Fpc Goals Time Frame: Feb 19, 2017 Transfers (B,C,W/C) (FIM): 6 Sit to Lying (QC): 6 Lying-Sitting on Side/Bed(QC): 6 Sit to Stand (QC): 6 Rollin Roll Left to Right (QC): 6 Chair/Vxy-nu-Tnxmp Xfer(QC): 6 Car Transfer (QC): 6 Does the Patient Walk: Yes Gait (FIM): 5 (household) Gait distance (FIM): 3=062-80 ft Distance: 50 ft household Walk 10 feet (QC): 5 Walk 10ft-Uneven Surface(QC): 4 Walk 50ft with 2 Turns (QC): 5 Walk 150 ft (QC): 4 (asssit with this, CGA) Gait Assistive Device: Cane Large Base Quad Does the Pt use WC or Scooter?: Yes Wheelchair (FIM): 6 Wheelchair distance (FIM): 3=150 ft Wheel 50 feet with 2 turns (QC: 6 Stairs (FIM): 5 (household) # of Steps: 8 1 Step (curb) (QC): 5 4 Steps (QC): 5 12 Steps (QC): 5 Stairs Level Of Assist: 6 Picking up an Object (QC): 4 PT Plan Problem List Problem List: Activity Tolerance, Functional Strength, Safety, Balance, Gait, Transfer, Bed Mobility Treatment/Plan Treatment Plan: Continue Plan of Care Treatment Plan: Bed Mobility, Education, Functional Activity Delmy, Functional Strength, Group Therapy, Gait, Safety, Therapeutic Exercise, Transfers Treatment Duration: Feb 19, 2017 Visits Per Week: 10-*15 Minutes/Day (M-F): 60-90 Minutes/Day (Sat/Gonzalez): prn Safety Risks/Education Patient Education: Gait Training, Transfer Techniques, Steps, Safety Issues Teaching Recipient: Patient Teaching Methods: Demonstration, Discussion Response to Teaching: Reinforcement Needed Time/GCodes Time In: 1300 Time Out: 1330 Total Billed Treatment Time: 30 Total Billed Treatment 1 visit GT 30 min BROOKE WORLEY PT Feb 07, 2017 13:31
--- NOTE | 2017-02-07 17:51 | PM & R (SOAP) Progress Note ---
Subjective Subjective/Events-last exam Patient was seen in his room earlier today Progressing well with therapies Patient Min assist for gait Objective Exam Last Set of Vital Signs Vital Signs Date Time Temp Pulse Resp B/P Pulse Ox O2 Delivery O2 Flow Rate FiO2 02/07/17 09:00 Room Air 02/07/17 05:26 98.0 57 18 153/81 95 Capillary Refill : I&O Intake and Output 02/07/17 00:00 Intake Total 1970 ml Output Total 1500 ml Balance 470 ml Intake Oral 1970 ml Output Urine Total 1500 ml General: Alert, Oriented X3, Cooperative, No Acute Distress HEENT: Atraumatic, PERRLA, EOMI, Mucous Memb Moist/[place], Other (rt labila droop ) Neck: Supple, No JVD Lungs: Clear to Auscultation Heart: Regular Rate Abdomen: Normal Bowel Sounds, Soft, No Tenderness Extremities: No Edema Neuro: Other (rt HP and mild cognitive impairment and word finding difficulty) Results Lab Laboratory Tests 02/04/17 21:01: Glucometer 132H 02/05/17 06:05: Glucometer 123H 02/05/17 10:48: Glucometer 115H 02/05/17 16:12: Glucometer 143H 02/05/17 21:10: Glucometer 154H 02/06/17 04:49: Glucometer 123H 02/06/17 12:03: Glucometer 110 02/06/17 20:37: Glucometer 183H 02/07/17 05:30: Glucometer 126H 02/07/17 11:08: Glucometer 93 02/07/17 16:30: Glucometer 136H Assessment/Plan Assessment Left CVA with RT HP HTN better controlled DM controlled -Diabetic education ordered Constipation treated Plan Continue PT/OT/ST Recheck Labs-done HTN meds adjusted earlier during stay with better control Constipation treated Appreciate Therapy notes and current labs Next Team Conference 02/09/17 DANIKA BRADLEY MD Feb 07, 2017 17:51
[2017-02-07 18:24] VITALS: BP 156/75
[2017-02-07] MEDS: ATORVASTATIN 40 MG (LIPITOR) TABLET PO SCH (20:13)
[2017-02-07] MEDS: inSUlin DETERMIR 1 UNIT/0.01 ML (LEVEMIR) CHARGE PER UNIT SQ SCH (22:12)
[2017-02-08 05:11] VITALS: BP 166/78
[2017-02-08] MEDS: hydrALAZINE (APRESOLINE) 25 MG TAB PO SCH ×3 (05:14→21:55)
[2017-02-08] MEDS: inSUlin ASPART (NovoLOG) 1 UNIT/0.01 ML (CHARGE PER UNIT) SC SCH ×4 (05:14→20:43)
--- NOTE | 2017-02-08 07:40 | Progress Note (SOAP) ---
Subjective Subjective/Events-last exam CVA. Hypertension. Patient working hard. Patient improving. Patient did move right hand yesterday Objective Exam Vital Signs Date Time Temp Pulse Resp B/P Pulse Ox O2 Delivery O2 Flow Rate FiO2 02/08/17 05:11 98.9 64 16 166/78 97 Room Air 02/07/17 21:00 Room Air 02/07/17 18:24 98.0 63 14 156/75 98 02/07/17 09:00 Room Air I & O 02/08/17 07:00 Intake Total 1060 ml Output Total 500 ml Balance 560 ml Capillary Refill : General Appearance: No Apparent Distress WD/WN HEENT: Normal ENT Inspection Neck: Normal Inspection Respiratory: Chest Non Tender Lungs Clear Normal Breath Sounds No Accessory Muscle Use No Respiratory Distress Cardiovascular: Regular Rate, Rhythm No Murmur Gastrointestinal: non tender soft Results Lab Laboratory Tests 02/07/17 11:08: Glucometer 93 02/07/17 16:30: Glucometer 136H 02/07/17 20:25: Glucometer 179H 02/08/17 05:13: Glucometer 128H Assessment/Plan Assessment/Plan Assess & Plan/Chief Complaint CVA on right. Hypertension. Diabetes. Patient when asked questions has a slow thought process. Patient unable to lemon picker right hand. Patient does move his right leg. . 01/24/17. CVA on right. Hypertension. Diabetes. Patient is improving. Patient positive. . 01/25/17. CVA on right. Hypertension. HCTZ added. Patient moving right extremities better. Patient improving. . 01/26/17 CVA Hypertension Patient moving left extremities better. Patient improving. Blood pressure better today than yesterday. . 3/Touche last . CVA on right. Hypertension. Diabetes. Control. Patient talking better. . 01/28/17. CVA on right. Hypertension. Diabetes. Patient continues to improve slowly. . 01/31/17. CVA on right. Hypertension better. Sugars good. Positive to do PT and OT.. . 02/01/17. CVA in right. Hypertension doing better. Patient's left leg doing better. Slow process with left hand. . 02/02/17. CVA on right. Hypertension.. Patient moving toes in right foot. Patient still not moving right hand. . 02/03/17. CVA on right. Hypertension. Blood pressure better. Patient now starting to move the right hand. Right leg getting stronger. Patient in the right direction. . 02/04/17. CVA in right. Hypertension. Patient working hard. Patient progressing. . 02/07/17 Patient working hard. CVA. Hypertension. Patient moving right leg better. Patient struggling with right upper extremity. . 02/08/17. CVA on right. Hypertension. Diabetes. Patient working hard with PT and OT Clinical Quality Measures DVT/VTE Risk/Contraindication: Risk Factor Score Per Nursin RFS Level Per Nursing on Admit: 4+=Very High BENJY SANATNA DO Feb 08, 2017 07:40
[2017-02-08] MEDS: HYDROCHLOROTHIAZIDE 25 MG (HCTZ) TAB PO SCH (08:01)
[2017-02-08] MEDS: amLODIPine 5 MG (NORVASC) TAB PO SCH (08:01)
[2017-02-08] MEDS: meTOprolol TARTRATE 25 MG (LOPRESSOR) TABLET PO SCH ×2 (08:01→20:09)
[2017-02-08] MEDS: SENNA W/DOCUSATE (SENOKOT S) TABLET PO SCH ×2 (08:01→20:09)
[2017-02-08] MEDS: ASPIRIN 325 MG (5 GR) TABLET PO SCH (08:01)
--- NOTE | 2017-02-08 09:29 | Occupational Ther Daily Note ---
OT Current Status-Daily Note Subjective Pt alert, lying in bed. Pt appears tired this morning. Pt agreed to therapy. No c/o pain. Mental Status/Objective Patient Orientation: Person, Place, Time, Situation Functional [place] Measure 0=Not Assessed/NA 4=Minimal Assistance 1=Total Assistance 5=Supervision or Setup 2=Maximal Assistance 6=Modified [place] 3=Moderate Assistance 7=Complete [place] ADL-Treatment Mod I to go from supine to sitting EOB. CGA for stand pivot transfer from EOB to w/c. Pt sat in front of sink and completed grooming, bathing upper/lower body by self. Pt doffed/donned shirt by self after set up. Pt then transferred from w/c to toilet with CGA using w/c and grabbars. CGA for balance while pt cleanse self and manipulated clothing. Pt doffed and donned lower body clothing with min A for donning over L foot and CGA for balance when hiking over hips. After therapy, pt sitting in recliner with call light/phone in reach. Functional [place] Measure 0=Not Assessed/NA 4=Minimal Assistance 1=Total Assistance 5=Supervision or Setup 2=Maximal Assistance 6=Modified [place] 3=Moderate Assistance 7=Complete IndependenceIRFPAI Quality Coding Scale 6 Independent with activity with or without an assistive device 5 Patient requires set up or clean up by helper. Patient completes activity by themselves 4 Supervision or touching assist (CGA). [place] provide cues , steadying assist 3 The helper provides less than half the effort to complete the activity 2 The helper provides more than half the effort to complete the activity 1 Dependent. The helper does all the effort to complete an activity 7 Patient refused to complete or attempt activity 9 The patient did not perform the activity before the current illness or injury 88 Not attempted due to Medical conditions or safety concerns Grooming (FIM): 6 Upper Body (FIM): 5 Lower Body Dressing (FIM): 4 Toileting (FIM): 4 Transfers (B, C, W/C) (FIM): 4 Toilet/Commode Transfer (FIM): 4 Other Treatment Pt maneuvered w/c to therapy gym. Pt transferred with CGA to therapy mat. Pt worked on AAROM with L UE and then passive stretch to L UE. Pt is demonstrating trace movement in extensor muscles when gravity and resistance is eliminated. Pt is demonstrating movement with flexor muscles, attempts to use compensatory movements. OT Short Term Goals Short Term Goals Time Frame: Jan 29, 2017 Eating(FIM): 5 Grooming(FIM): 5 Bathing(FIM): 4 Upper Body Dressing(FIM): 4 Lower Body Dressing(FIM): 4 Toileting(FIM): 4 Transfers (B,C,W/C) (FIM): 4 Toilet/Commode Transfer(FIM): 4 Shower Transfer(FIM): 4 Additional Short Term Goals: 1-Demonstrate ADL Tasks, 2-Verbalize Understanding , 3-ImproveStrength/Delmy 1=Demonstrate adherence to instructed precautions during ADL tasks. 2=Patient will verbalize/demonstrate understanding of assistive devices/ modifications for ADL. 3=Patient will improve strength/tolerance for activity to enable patient to perform ADL's. OT Metal Weather Stripper Goals Fdc Goals Time Frame: Feb 12, 2017 Eating (FIM): 6 Eating (QC): 6 Groomin Oral Hygiene (QC): 6 Bathing(FIM): 5 Shower/Bathe Self (QC): 5 Upper Body Dressing(FIM): 6 Upper Body Dressing (QC): 6 Lower Body Dressing(FIM): 6 Lower Body Dressing (QC): 6 On/Off Footwear (QC): 6 Toileting(FIM): 6 Toileting Hygiene (QC): 6 Transfers (B,C,W/C) (FIM): 6 Toilet/Commode Transfer(FIM): 6 Toilet/Commode Transfer (QC): 6 Shower Transfer(FIM): 6 Additional Goals: 1-Demonstrate ADL Tasks, 2-Verbalize Understanding, 3- ImproveStrength/Delmy 1=Demonstrate adherence to instructed precautions during ADL tasks. 2=Patient will verbalize/demonstrate understanding of assistive devices/ modifications for ADL. 3=Patient will improve strength/tolerance for activity to enable patient to perform ADL's. OT Education/Plan Discharge Recommendations Plan/Recommendations: Continue POC Treatment Plan/Plan of Care Patient would benefit from OT for education, treatment and training to promote independence in ADL's, mobility, safety and/or upper extremity function for ADL' s. Plan of Care: ADL Retraining, Caregiver Training, Cognitive Retraining, Functional Mobility, Group Exercise/Act as Ind, UE Funct Exercise/Act Treatment Duration: Feb 12, 2017 Visits Per Week: 10-12 Minutes/Day (M-F): 60-90 Minutes/Day (Sat/Gonzalez): prn Agreement: Yes Rehab Potential: Good Time/GCodes Start Time: 07:30 Stop Time: 08:45 Total Time Billed (hr/min): 75 Billed Treatment Time 1 visit-ADL 2 (30 min) NM 3 (45 min) CHULA NGUYỄN Feb 08, 2017 09:29
--- NOTE | 2017-02-08 09:31 | Speech Therapy Daily Note ---
Speech Daily Progress Note Subjective The patient was seated upright in recliner upon entrance. The patient greeted the clinician appropriately and agreed to participate in the speech and language treatment session on this date. Objective Word-Finding: The patient was provided three words by the clinician. The patient was asked to name the category and provide one additional word that " fit into" the category appropriately. The patient demonstrated moderate difficulty with this task on this date (slightly increased from the previous date), displaying 75% accuracy with a slight increase of word-finding halts and moderate clinician verbal cueing. The patient demonstrated intermittent frustration throughout the session, which did appear to negatively impact the patient's accuracy level. Assessment Assessment Current Status: Fair Progress Treatment Plan Continue Plan of Care Communication Comprehension: 4 Expression: 4 Social Cognition Social Interaction: 5 Problem Solvin Memory: 5 Speech Short Term Goals Short Term Goals Short Term Goals 1. The patient will demonstrated 80% accuracy throughout structured word- finding tasks, independently. 2. The patient will recall and demonstrate two functional memory strategies for use at home, independently. Time Frame-STG: Two Weeks Speech Mcfp Goals Cinder Crane Operator Goals 1. The patient will demonstrated improved expressive communication and cognitive skills for increased function and safety with ADL's. Time Frame: Four Weeks Speech-Plan Treatment Plan Speech Therapy Treatment Plan: Continue Plan of Care Continue skilled speech therapy to target expressive communication needs. Treatment Duration: Feb 21, 2017 # of days/week Four to five. Visits Per Week: Four to five. Minutes/Day (M-F): 30 Rehab Potential: Good Safety Risks/Education Teaching Recipient: Patient Teaching Methods: Discussion Response to Teaching: Verbalize Understanding, Return Demonstration, Reinforcement Needed Education Topics Provided: Word-Finding Strategies Time Speech Therapy Time In: 09:00 Speech Therapy Time Out: 09:30 Total Billed Time: 30 Billed Treatment Time DarrylDAHLIA ELIZABETH ST Feb 08, 2017 09:31
--- NOTE | 2017-02-08 10:57 | Physical Therapy Daily Note ---
PT Daily Note-Current Subjective Patient in recliner pre tx, agrees to PT, no complaints. Pain Numeric Pain Scale: 0-No Pain Appearance Patient in recliner post tx with nurse call, phone, tray, all needs met. Mental Status Patient Orientation: Person, Place, Situation Transfers Functional [place] Measure 0=Not Assessed/NA 4=Minimal Assistance 1=Total Assistance 5=Supervision or Setup 2=Maximal Assistance 6=Modified [place] 3=Moderate Assistance 7=Complete IndependenceIRFPAI Quality Coding Scale 6 Independent with activity with or without an assistive device 5 Patient requires set up or clean up by helper. Patient completes activity by themselves 4 Supervision or touching assist (CGA). [place] provide cues , steadying assist 3 The helper provides less than half the effort to complete the activity 2 The helper provides more than half the effort to complete the activity 1 Dependent. The helper does all the effort to complete an activity 7 Patient refused to complete or attempt activity 9 The patient did not perform the activity before the current illness or injury 88 Not attempted due to Medical conditions or safety concerns Transfers (B, C, W/C) (FIM): 4 Sit to/from Stand: 4 Gait Training Gait (FIM): 4 Distance: 300'x2 Gait Level of Assist: 4 Gait Persons Needed: 1 Gait Assistive Device: Cane Large Base Quad min assist for balance, selvin wrap on right ankle for dorsiflex assist, right knee hyperextension Exercises 3 sets of 10 manually resisted leg extension on the right side, right knee fallouts x20, bridges x20, SAQ right side for 5 min NuStep Minutes: 15 NuStep Workload: 5 Treatments ambulation, bed mobility and transfers, functional strengthening Assessment Current Status: Fair Progress improving balance, patient is needing less and less assist with balance during ambulation PT Short Term Goals Short Term Goals Time Frame: Feb 05, 2017 Transfers (B,C,W/C) (FIM): 4 Gait (FIM): 4 Distance (FIM): 3=150 ft Gait Assistive Device: Cane Large Base Quad Wheelchair Distance: 80' Stairs (FIM): 2 # of Steps: 4 Stairs Level of Assist: 4 PT Oracle Consultant Goals Mcc Goals PT Oracle Consultant Goals Time Frame: Feb 19, 2017 Transfers (B,C,W/C) (FIM): 6 Sit to Lying (QC): 6 Lying-Sitting on Side/Bed(QC): 6 Sit to Stand (QC): 6 Rollin Roll Left to Right (QC): 6 Chair/Yxt-sy-Jnkjg Xfer(QC): 6 Car Transfer (QC): 6 Does the Patient Walk: Yes Gait (FIM): 5 (household) Gait distance (FIM): 8=414-28 ft Distance: 50 ft household Walk 10 feet (QC): 5 Walk 10ft-Uneven Surface(QC): 4 Walk 50ft with 2 Turns (QC): 5 Walk 150 ft (QC): 4 (asssit with this, CGA) Gait Assistive Device: Cane Large Base Quad Does the Pt use WC or Scooter?: Yes Wheelchair (FIM): 6 Wheelchair distance (FIM): 3=150 ft Wheel 50 feet with 2 turns (QC: 6 Stairs (FIM): 5 (household) # of Steps: 8 1 Step (curb) (QC): 5 4 Steps (QC): 5 12 Steps (QC): 5 Stairs Level Of Assist: 6 Picking up an Object (QC): 4 PT Plan Problem List Problem List: Activity Tolerance, Functional Strength, Safety, Balance, Gait, Transfer, Bed Mobility, ROM Treatment/Plan Treatment Plan: Continue Plan of Care Treatment Plan: Bed Mobility, Education, Functional Activity Delmy, Functional Strength, Group Therapy, Gait, Safety, Therapeutic Exercise, Transfers Treatment Duration: Feb 19, 2017 Visits Per Week: 10-*15 Minutes/Day (M-F): 60-90 Minutes/Day (Sat/Gonzalez): prn Safety Risks/Education Patient Education: Gait Training, Transfer Techniques, Safety Issues Teaching Recipient: Patient Teaching Methods: Demonstration, Discussion Response to Teaching: Reinforcement Needed Time/GCodes Time In: 1000 Time Out: 1100 Total Billed Treatment Time: 60 Total Billed Treatment 1 visit GT 30 min EX 30 min BROOKE WORLEY PT Feb 08, 2017 10:57
--- NOTE | 2017-02-08 13:42 | PM & R (SOAP) Progress Note ---
Subjective Subjective/Events-last exam Patient was seen in his room earlier today Patient Min assist for transfers Objective Exam Last Set of Vital Signs Vital Signs Date Time Temp Pulse Resp B/P Pulse Ox O2 Delivery O2 Flow Rate FiO2 02/08/17 09:00 Room Air 02/08/17 05:11 98.9 64 16 166/78 97 Capillary Refill : I&O Intake and Output 02/08/17 00:00 Intake Total 1260 ml Output Total 500 ml Balance 760 ml Intake Oral 1260 ml Output Urine Total 500 ml # Voids 6 # Urine Diapers 3 # Bowel Movements 1 General: Alert, Oriented X3, Cooperative, No Acute Distress HEENT: Atraumatic, PERRLA, EOMI, Mucous Memb Moist/[place], Other (rt labila droop ) Neck: Supple, No JVD Lungs: Clear to Auscultation Heart: Regular Rate Abdomen: Normal Bowel Sounds, Soft, No Tenderness Extremities: No Edema Neuro: Other (rt HP and mild cognitive impairment and word finding difficulty) Results Lab Laboratory Tests 02/05/17 16:12: Glucometer 143H 02/05/17 21:10: Glucometer 154H 02/06/17 04:49: Glucometer 123H 02/06/17 12:03: Glucometer 110 02/06/17 20:37: Glucometer 183H 02/07/17 05:30: Glucometer 126H 02/07/17 11:08: Glucometer 93 02/07/17 16:30: Glucometer 136H 02/07/17 20:25: Glucometer 179H 02/08/17 05:13: Glucometer 128H Assessment/Plan Assessment Left CVA with RT HP HTN better controlled DM controlled -Diabetic education ordered Constipation treated Plan Continue PT/OT/ST Recheck Labs-done HTN meds adjusted earlier during stay with better control Constipation treated Appreciate Therapy notes and current labs Next Team Conference tomorrow 02/09/17 DANIKA BRADLEY MD Feb 08, 2017 13:42
--- NOTE | 2017-02-08 14:40 | Therapy Group Daily Note ---
Therapy Daily Group Note Exercises LE Seated Exercise, UE Exercise Other/Notes Pt was an active participant in OT/PT group. He introduced himself to the group by sharing a place he'd like to visit or a favorite place he has visited. He participated in a memory activity and was able to recall items several minutes after viewing them. He did seated UE and LE exercises and stretches (modifying them as needed) and shared "Words of [place] or Encouragement" with the rest of the group. He took himself back to his room, per w/c. Start Time: 13:00 Stop Time: 14:10 Total Billed Treatment Time: 70 Total Billed Treatment visit, 70 minutes group BRUCE PRADHAN OT Feb 08, 2017 14:40
[2017-02-08 18:31] VITALS: BP 154/75
[2017-02-08] MEDS: inSUlin DETERMIR 1 UNIT/0.01 ML (LEVEMIR) CHARGE PER UNIT SQ SCH (20:09)
[2017-02-08] MEDS: ATORVASTATIN 40 MG (LIPITOR) TABLET PO SCH (20:09)
[2017-02-09 05:43] VITALS: BP 159/90
[2017-02-09] MEDS: hydrALAZINE (APRESOLINE) 25 MG TAB PO SCH ×4 (05:45→21:12)
[2017-02-09] MEDS: inSUlin ASPART (NovoLOG) 1 UNIT/0.01 ML (CHARGE PER UNIT) SC SCH ×4 (05:45→21:00)
[2017-02-09] MEDS: HYDROCHLOROTHIAZIDE 25 MG (HCTZ) TAB PO SCH (08:18)
[2017-02-09] MEDS: meTOprolol TARTRATE 25 MG (LOPRESSOR) TABLET PO SCH ×2 (08:18→21:11)
[2017-02-09] MEDS: ASPIRIN 325 MG (5 GR) TABLET PO SCH (08:19)
[2017-02-09] MEDS: amLODIPine 5 MG (NORVASC) TAB PO SCH (08:19)
[2017-02-09] MEDS: SENNA W/DOCUSATE (SENOKOT S) TABLET PO SCH ×2 (08:19→21:11)
--- NOTE | 2017-02-09 08:39 | PM & R (SOAP) Progress Note ---
Subjective Subjective/Events-last exam Patient was seen in his room this AM Patient min assist for transfers. Objective Exam Last Set of Vital Signs Vital Signs Date Time Temp Pulse Resp B/P Pulse Ox O2 Delivery O2 Flow Rate FiO2 02/09/17 05:43 97.2 69 20 159/90 97 Room Air Capillary Refill : I&O Intake and Output 02/09/17 00:00 Intake Total 840 ml Balance 840 ml Intake Oral 840 ml # Voids 5 # Urine Diapers 1 # Bowel Movements 1 General: Alert, Oriented X3, Cooperative, No Acute Distress HEENT: Atraumatic, PERRLA, EOMI, Mucous Memb Moist/[place], Other (rt labila droop ) Neck: Supple, No JVD Lungs: Clear to Auscultation Heart: Regular Rate Abdomen: Normal Bowel Sounds, Soft, No Tenderness Extremities: No Edema Neuro: Other (rt HP and mild cognitive impairment and word finding difficulty) Results Lab Laboratory Tests 02/06/17 12:03: Glucometer 110 02/06/17 20:37: Glucometer 183H 02/07/17 05:30: Glucometer 126H 02/07/17 11:08: Glucometer 93 02/07/17 16:30: Glucometer 136H 02/07/17 20:25: Glucometer 179H 02/08/17 05:13: Glucometer 128H 02/08/17 11:06: Glucometer 105 02/08/17 16:18: Glucometer 146H 02/08/17 20:33: Glucometer 212H 02/09/17 05:39: Glucometer 161H Assessment/Plan Assessment Left CVA with RT HP HTN better controlled DM controlled -Diabetic education ordered Constipation treated Plan Continue PT/OT/ST Recheck Labs-done HTN meds adjusted earlier during stay with better control Constipation treated Appreciate Therapy notes and current labs Next Team Conference later today 02/09/17-See report for full functional update and POC and ELOS Custom AFO ordered for patient DANIKA BRADLEY MD Feb 09, 2017 08:39
--- NOTE | 2017-02-09 08:42 | Progress Note (SOAP) ---
Subjective Subjective/Events-last exam CVA right. Hypertension. Patient working progress. Patient trying hard Objective Exam Vital Signs Date Time Temp Pulse Resp B/P Pulse Ox O2 Delivery O2 Flow Rate FiO2 02/09/17 05:43 97.2 69 20 159/90 97 Room Air 02/08/17 20:15 Room Air 02/08/17 18:31 98.4 66 16 154/75 96 02/08/17 09:00 Room Air I & O 02/09/17 07:00 Intake Total 940 ml Balance 940 ml Capillary Refill : General Appearance: No Apparent Distress WD/WN HEENT: Normal ENT Inspection Neck: Normal Inspection Respiratory: Chest Non Tender Lungs Clear Normal Breath Sounds No Accessory Muscle Use No Respiratory Distress Cardiovascular: Regular Rate, Rhythm No Murmur Results Lab Laboratory Tests 02/08/17 11:06: Glucometer 105 02/08/17 16:18: Glucometer 146H 02/08/17 20:33: Glucometer 212H 02/09/17 05:39: Glucometer 161H Assessment/Plan Assessment/Plan Assess & Plan/Chief Complaint CVA on right. Hypertension. Diabetes. Patient when asked questions has a slow thought process. Patient unable to case picker right hand. Patient does move his right leg. . 01/24/17. CVA on right. Hypertension. Diabetes. Patient is improving. Patient positive. . 01/25/17. CVA on right. Hypertension. HCTZ added. Patient moving right extremities better. Patient improving. . 01/26/17 CVA Hypertension Patient moving left extremities better. Patient improving. Blood pressure better today than yesterday. . 3/Touche last . CVA on right. Hypertension. Diabetes. Control. Patient talking better. . 01/28/17. CVA on right. Hypertension. Diabetes. Patient continues to improve slowly. . 01/31/17. CVA on right. Hypertension better. Sugars good. Positive to do PT and OT.. . 02/01/17. CVA in right. Hypertension doing better. Patient's left leg doing better. Slow process with left hand. . 02/02/17. CVA on right. Hypertension.. Patient moving toes in right foot. Patient still not moving right hand. . 02/03/17. CVA on right. Hypertension. Blood pressure better. Patient now starting to move the right hand. Right leg getting stronger. Patient in the right direction. . 02/04/17. CVA in right. Hypertension. Patient working hard. Patient progressing. . 02/07/17 Patient working hard. CVA. Hypertension. Patient moving right leg better. Patient struggling with right upper extremity. . 02/08/17. CVA on right. Hypertension. Diabetes. Patient working hard with PT and OT. . 02/09/17. CVA on right. Hypertension. Diabetes. Patient working hard at a stroke Clinical Quality Measures DVT/VTE Risk/Contraindication: Risk Factor Score Per Nursin RFS Level Per Nursing on Admit: 4+=Very High BENJY SANTANA DO Feb 09, 2017 08:42
--- NOTE | 2017-02-09 08:56 | Occupational Ther Daily Note ---
OT Current Status-Daily Note Subjective Pt sleeping in bed, woke to knock on door. Pt agreed to therapy. No c/o pain at this time. Mental Status/Objective Patient Orientation: Person, Place, Time, Situation Functional [place] Measure 0=Not Assessed/NA 4=Minimal Assistance 1=Total Assistance 5=Supervision or Setup 2=Maximal Assistance 6=Modified [place] 3=Moderate Assistance 7=Complete [place] ADL-Treatment Functional [place] Measure 0=Not Assessed/NA 4=Minimal Assistance 1=Total Assistance 5=Supervision or Setup 2=Maximal Assistance 6=Modified [place] 3=Moderate Assistance 7=Complete IndependenceIRFPAI Quality Coding Scale 6 Independent with activity with or without an assistive device 5 Patient requires set up or clean up by helper. Patient completes activity by themselves 4 Supervision or touching assist (CGA). [place] provide cues , steadying assist 3 The helper provides less than half the effort to complete the activity 2 The helper provides more than half the effort to complete the activity 1 Dependent. The helper does all the effort to complete an activity 7 Patient refused to complete or attempt activity 9 The patient did not perform the activity before the current illness or injury 88 Not attempted due to Medical conditions or safety concerns Eating (FIM): 5 (Set up only. Pt uses rocker knife to cut food when needed. Pt is able to use regular utensils to feed self.) Grooming (FIM): 6 (Sitting at sink (w/c) pt is able to complete own grooming.) Bathing (FIM): 6 (Using shower bench, grabbar and hand held shower pt is able to complete own bathing. Pt leans toward side to cleanse buttocks.) Upper Body (FIM): 5 (After set up, pt is able to don/doff short sleeve shirt by self. Pt does need reminded of how far to pull up shirt on L arm before pulling over head.) Lower Body Dressing (FIM): 4 (Using grabbar and CGA when standing, pt is able to don/doff lower body clothes. Pt uses Dycem (non-skid) placed on R knee to keep L LE from slipping off when he crosses L ankle over R knee. Then is able to don/doff over R LE without equipment.) Toileting (FIM): 4 (Using grabbar, pt is able to manipulate clothing and cleanse self in standing with CGA.) Transfers (B, C, W/C) (FIM): 4 (Close SBA with transfers to and from w/c toward either L/R side.) Toilet/Commode Transfer (FIM): 4 (Using grabbar, pt is able to complete transfer with close SBA.) Shower Transfer(FIM): 5 (Using grabbar and shower bench, pt is able to complete transfer with close SBA.) Other Treatment Pt maneuver w/c to therapy gym. Transferred onto therapy mat and went from sitting to supine by self, min A for supine to sitting. Completed AAROM with e- stim on shldr elevation and elbow extension, required level 8 to activate muscle groups. Pt then was able to demonstrate increase shldr elevation in sitting with JONES isolating movement. Pt was able to actively flex bicep and internal rotation, gravity eliminated. After therapy, pt transferred to recliner to eat breakfast. Discussed with pt, nrsg and PHARMACY GRADUATE INTERN about working on pt ordering own food instead of autotray. Call light/phone in reach. All needs met in room. OT Short Term Goals Short Term Goals Time Frame: Jan 29, 2017 Eating(FIM): 5 Grooming(FIM): 5 Bathing(FIM): 4 Upper Body Dressing(FIM): 4 Lower Body Dressing(FIM): 4 Toileting(FIM): 4 Transfers (B,C,W/C) (FIM): 4 Toilet/Commode Transfer(FIM): 4 Shower Transfer(FIM): 4 Additional Short Term Goals: 1-Demonstrate ADL Tasks, 2-Verbalize Understanding , 3-ImproveStrength/Delmy 1=Demonstrate adherence to instructed precautions during ADL tasks. 2=Patient will verbalize/demonstrate understanding of assistive devices/ modifications for ADL. 3=Patient will improve strength/tolerance for activity to enable patient to perform ADL's. OT Switchboard Operator Goals Switchboard Operator Goals Time Frame: Feb 12, 2017 Eating (FIM): 6 Eating (QC): 6 Groomin Oral Hygiene (QC): 6 Bathing(FIM): 5 Shower/Bathe Self (QC): 5 Upper Body Dressing(FIM): 6 Upper Body Dressing (QC): 6 Lower Body Dressing(FIM): 6 Lower Body Dressing (QC): 6 On/Off Footwear (QC): 6 Toileting(FIM): 6 Toileting Hygiene (QC): 6 Transfers (B,C,W/C) (FIM): 6 Toilet/Commode Transfer(FIM): 6 Toilet/Commode Transfer (QC): 6 Shower Transfer(FIM): 6 Additional Goals: 1-Demonstrate ADL Tasks, 2-Verbalize Understanding, 3- ImproveStrength/Delmy 1=Demonstrate adherence to instructed precautions during ADL tasks. 2=Patient will verbalize/demonstrate understanding of assistive devices/ modifications for ADL. 3=Patient will improve strength/tolerance for activity to enable patient to perform ADL's. OT Education/Plan Discharge Recommendations Plan/Recommendations: Continue POC Treatment Plan/Plan of Care Patient would benefit from OT for education, treatment and training to promote independence in ADL's, mobility, safety and/or upper extremity function for ADL' s. Plan of Care: ADL Retraining, Caregiver Training, Cognitive Retraining, Functional Mobility, Group Exercise/Act as Ind, UE Funct Exercise/Act Treatment Duration: Feb 12, 2017 Visits Per Week: 10-12 Minutes/Day (M-F): 60-90 Minutes/Day (Sat/Gonzalez): prn Agreement: Yes Rehab Potential: Good Time/GCodes Start Time: 07:00 Stop Time: 08:15 Total Time Billed (hr/min): 75 Billed Treatment Time 1 visit-ADL 3 (45 min) NM 2 (30 min) CHULA NGUYỄN Feb 09, 2017 08:56
--- NOTE | 2017-02-09 10:32 | Physical Therapy Daily Note ---
PT Daily Note-Current Subjective Patient in recliner pre tx, agrees to PT, no complaints of pain. Appearance Patient in recliner post tx, has nurse call,phone, tray, all needs met. Mental Status Patient Orientation: Person, Place, Situation Transfers Functional [place] Measure 0=Not Assessed/NA 4=Minimal Assistance 1=Total Assistance 5=Supervision or Setup 2=Maximal Assistance 6=Modified [place] 3=Moderate Assistance 7=Complete IndependenceIRFPAI Quality Coding Scale 6 Independent with activity with or without an assistive device 5 Patient requires set up or clean up by helper. Patient completes activity by themselves 4 Supervision or touching assist (CGA). [place] provide cues , steadying assist 3 The helper provides less than half the effort to complete the activity 2 The helper provides more than half the effort to complete the activity 1 Dependent. The helper does all the effort to complete an activity 7 Patient refused to complete or attempt activity 9 The patient did not perform the activity before the current illness or injury 88 Not attempted due to Medical conditions or safety concerns Transfers (B, C, W/C) (FIM): 4 Sit to/from Stand: 4 Gait Training Gait (FIM): 4 Distance: 300'x2 Gait Level of Assist: 4 Gait Persons Needed: 1 Gait Assistive Device: Cane Large Base Quad min assist for balance, right knee hyperextension, selvin wrap on right ankle for dorsiflexion assist Stair Training Stair Training: Handrails/: 1 handrail Stairs (FIM): 4 #of Steps: 12 Stairs: Pattern: Step to Level of Assist: 4 min assist for balance, cues for foot placement Exercises LAQ right side for 5 min NuStep Minutes: 15 NuStep Workload: 5 Treatments transfers, ambulation, stair training, functional strengthening Assessment Current Status: Fair Progress no changes in mobility but slowly improving balance and endurance PT Short Term Goals Short Term Goals Time Frame: Feb 05, 2017 Transfers (B,C,W/C) (FIM): 4 Gait (FIM): 4 Distance (FIM): 3=150 ft Gait Assistive Device: Cane Large Base Quad Wheelchair Distance: 80' Stairs (FIM): 2 # of Steps: 4 Stairs Level of Assist: 4 PT Fpc Goals Fpc Goals PT Gang Vibrator Operator Goals Time Frame: Feb 19, 2017 Transfers (B,C,W/C) (FIM): 6 Sit to Lying (QC): 6 Lying-Sitting on Side/Bed(QC): 6 Sit to Stand (QC): 6 Rollin Roll Left to Right (QC): 6 Chair/Anb-be-Vgmmp Xfer(QC): 6 Car Transfer (QC): 6 Does the Patient Walk: Yes Gait (FIM): 5 (household) Gait distance (FIM): 0=108-98 ft Distance: 50 ft household Walk 10 feet (QC): 5 Walk 10ft-Uneven Surface(QC): 4 Walk 50ft with 2 Turns (QC): 5 Walk 150 ft (QC): 4 (asssit with this, CGA) Gait Assistive Device: Cane Large Base Quad Does the Pt use WC or Scooter?: Yes Wheelchair (FIM): 6 Wheelchair distance (FIM): 3=150 ft Wheel 50 feet with 2 turns (QC: 6 Stairs (FIM): 5 (household) # of Steps: 8 1 Step (curb) (QC): 5 4 Steps (QC): 5 12 Steps (QC): 5 Stairs Level Of Assist: 6 Picking up an Object (QC): 4 PT Plan Problem List Problem List: Activity Tolerance, Functional Strength, Safety, Balance, Gait, Transfer, Bed Mobility Treatment/Plan Treatment Plan: Continue Plan of Care Treatment Plan: Bed Mobility, Education, Functional Activity Delmy, Functional Strength, Group Therapy, Gait, Safety, Therapeutic Exercise, Transfers Treatment Duration: Feb 19, 2017 Visits Per Week: 10-*15 Minutes/Day (M-F): 60-90 Minutes/Day (Sat/Gonzalez): prn Safety Risks/Education Patient Education: Gait Training, Transfer Techniques, Steps, Safety Issues Teaching Recipient: Patient Teaching Methods: Demonstration, Discussion Response to Teaching: Reinforcement Needed Time/GCodes Time In: 945 Time Out: 1030 Total Billed Treatment Time: 45 Total Billed Treatment 1 visit EX 20 min GT 25 min BROOKE WORLEY PT Feb 09, 2017 10:32
--- NOTE | 2017-02-09 11:28 | Speech Therapy Daily Note ---
Speech Daily Progress Note Subjective The patient was seated upright in recliner upon entrance. The patient greeted the clinician appropriately and agreed to participate in language therapy on this date. Objective Word-Finding: The patient was provided pictures containing safety issues present in a home environment. The patient was asked to describe the safety issue and provide a possible solution to the problem. The patient demonstrated reduced word-finding halts and pauses on this date, which did result in decreased frustration and anxiety. The patient demonstrated high accuracy with all solutions to safety issues provided. Assessment Assessment Current Status: Good Progress Treatment Plan Continue Plan of Care Communication Comprehension: 4 Expression: 4 Social Cognition Social Interaction: 5 Problem Solvin Memory: 4 Speech Short Term Goals Short Term Goals Short Term Goals 1. The patient will demonstrated 80% accuracy throughout structured word- finding tasks, independently. 2. The patient will recall and demonstrate two functional memory strategies for use at home, independently. Time Frame-STG: Two Weeks Speech Alf Goals Beam Department Supervisor Goals 1. The patient will demonstrated improved expressive communication and cognitive skills for increased function and safety with ADL's. Time Frame: Four Weeks Speech-Plan Treatment Plan Speech Therapy Treatment Plan: Continue Plan of Care Continue skilled speech therapy to target expressive communication. Treatment Duration: Feb 21, 2017 # of days/week Four to five. Visits Per Week: Four to five. Minutes/Day (M-F): 30 Rehab Potential: Good Safety Risks/Education Teaching Recipient: Patient Teaching Methods: Discussion Response to Teaching: Verbalize Understanding Education Topics Provided: Plan of care, Progressiong towards goals Time Speech Therapy Time In: 09:15 Speech Therapy Time Out: 09:45 Total Billed Time: 30 Billed Treatment Time 1, FRANCOIS LEWIS Feb 09, 2017 11:28
--- NOTE | 2017-02-09 15:04 | Therapy Group Daily Note ---
Therapy Daily Group Note Other/Notes Pt sit to stand transfer with close SBA. Pt maneuvered w/c by self to [facility] for OT/PT group. Group consisted of introductions (name, place living, what do you do when spring comes), socialization, word association activity. Pt was able to state introduction appropriately though required extended time and verbal cues to answer question. Pt contributed to discussions. Complete word association well and worked in a group to find the correct answer to questions. After group, maneuvered w/c to room and SBA to lay down in bed. Call light/phone in reach. All needs met in room. Start Time: 13:00 Stop Time: 14:15 Total Billed Treatment Time: 75 Total Billed Treatment 1-GRP CHULA NGUYỄN Feb 09, 2017 15:04
[2017-02-09 18:00] VITALS: BP 157/86
[2017-02-09] MEDS ORDERED: IBUPROFEN 600 MG (MOTRIN) TAB PO ONE (18:06)
[2017-02-09] MEDS ORDERED: IBUPROFEN 600 MG (MOTRIN) TAB PO PRN (18:15)
[2017-02-09] MEDS: ATORVASTATIN 40 MG (LIPITOR) TABLET PO SCH (21:11)
[2017-02-09] MEDS: inSUlin DETERMIR 1 UNIT/0.01 ML (LEVEMIR) CHARGE PER UNIT SQ SCH (21:12)
[2017-02-10 05:07] VITALS: BP 125/66
[2017-02-10] MEDS: inSUlin ASPART (NovoLOG) 1 UNIT/0.01 ML (CHARGE PER UNIT) SC SCH ×4 (05:15→21:00)
[2017-02-10] MEDS: hydrALAZINE (APRESOLINE) 25 MG TAB PO SCH ×3 (05:31→21:04)
[2017-02-10] MEDS: meTOprolol TARTRATE 25 MG (LOPRESSOR) TABLET PO SCH ×2 (07:52→21:04)
[2017-02-10] MEDS: SENNA W/DOCUSATE (SENOKOT S) TABLET PO SCH ×2 (07:52→21:04)
[2017-02-10] MEDS: ASPIRIN 325 MG (5 GR) TABLET PO SCH (07:52)
[2017-02-10] MEDS: amLODIPine 5 MG (NORVASC) TAB PO SCH (07:52)
[2017-02-10] MEDS: HYDROCHLOROTHIAZIDE 25 MG (HCTZ) TAB PO SCH (07:53)
--- NOTE | 2017-02-10 08:45 | Progress Note (SOAP) ---
Subjective Subjective/Events-last exam CVA. Hypertension. Patient moving better today. Patient states he doesn't have a brace when he walked today Objective Exam Vital Signs Date Time Temp Pulse Resp B/P Pulse Ox O2 Delivery O2 Flow Rate FiO2 02/10/17 05:30 62 02/10/17 05:07 96.2 56 16 125/66 97 Room Air 02/09/17 21:00 Room Air 02/09/17 18:00 97.4 66 18 157/86 97 Room Air 02/09/17 09:00 Room Air I & O 02/10/17 07:00 Intake Total 1700 ml Output Total 400 ml Balance 1300 ml Capillary Refill : General Appearance: No Apparent Distress WD/WN HEENT: Normal ENT Inspection Respiratory: Chest Non Tender Lungs Clear Normal Breath Sounds No Accessory Muscle Use No Respiratory Distress Cardiovascular: Regular Rate, Rhythm No Murmur Results Lab Laboratory Tests 02/09/17 11:23: Glucometer 122H 02/09/17 16:02: Glucometer 126H 02/09/17 21:06: Glucometer 153H Assessment/Plan Assessment/Plan Assess & Plan/Chief Complaint CVA on right. Hypertension. Diabetes. Patient when asked questions has a slow thought process. Patient unable to order picker right hand. Patient does move his right leg. . 01/24/17. CVA on right. Hypertension. Diabetes. Patient is improving. Patient positive. . 01/25/17. CVA on right. Hypertension. HCTZ added. Patient moving right extremities better. Patient improving. . 01/26/17 CVA Hypertension Patient moving left extremities better. Patient improving. Blood pressure better today than yesterday. . 3/e last . CVA on right. Hypertension. Diabetes. Control. Patient talking better. . 01/28/17. CVA on right. Hypertension. Diabetes. Patient continues to improve slowly. . 01/31/17. CVA on right. Hypertension better. Sugars good. Positive to do PT and OT.. . 02/01/17. CVA in right. Hypertension doing better. Patient's left leg doing better. Slow process with left hand. . 02/02/17. CVA on right. Hypertension.. Patient moving toes in right foot. Patient still not moving right hand. . 02/03/17. CVA on right. Hypertension. Blood pressure better. Patient now starting to move the right hand. Right leg getting stronger. Patient in the right direction. . 02/04/17. CVA in right. Hypertension. Patient working hard. Patient progressing. . 02/07/17 Patient working hard. CVA. Hypertension. Patient moving right leg better. Patient struggling with right upper extremity. . 02/08/17. CVA on right. Hypertension. Diabetes. Patient working hard with PT and OT. . 02/09/17. CVA on right. Hypertension. Diabetes. Patient working hard at a stroke. . 01/26 05/14. CVA on right hypertension. Diabetes. Patient able to walk today without the brace on his right leg Clinical Quality Measures DVT/VTE Risk/Contraindication: Risk Factor Score Per Nursin RFS Level Per Nursing on Admit: 4+=Very High BENJY SANTANA DO Feb 10, 2017 08:45
--- NOTE | 2017-02-10 08:49 | Occupational Ther Daily Note ---
OT Current Status-Daily Note Subjective Pt alert, lying in bed. Pt had ordered his own breakfast and had it eaten before OT arrived. Pt agreed to therapy. No c/o pain at this time. Mental Status/Objective Patient Orientation: Person, Place, Time, Situation Functional [place] Measure 0=Not Assessed/NA 4=Minimal Assistance 1=Total Assistance 5=Supervision or Setup 2=Maximal Assistance 6=Modified [place] 3=Moderate Assistance 7=Complete [place] ADL-Treatment Functional [place] Measure 0=Not Assessed/NA 4=Minimal Assistance 1=Total Assistance 5=Supervision or Setup 2=Maximal Assistance 6=Modified [place] 3=Moderate Assistance 7=Complete IndependenceIRFPAI Quality Coding Scale 6 Independent with activity with or without an assistive device 5 Patient requires set up or clean up by helper. Patient completes activity by themselves 4 Supervision or touching assist (CGA). [place] provide cues , steadying assist 3 The helper provides less than half the effort to complete the activity 2 The helper provides more than half the effort to complete the activity 1 Dependent. The helper does all the effort to complete an activity 7 Patient refused to complete or attempt activity 9 The patient did not perform the activity before the current illness or injury 88 Not attempted due to Medical conditions or safety concerns Grooming (FIM): 6 (Sitting at w/c level, pt able to complete by self.) Upper Body (FIM): 5 (After set up, pt able to complete on own.) Lower Body Dressing (FIM): 4 (After set up, pt is able to don/doff lower body clothing over feet by self then close SBA to stand and hike pants over hips. Pt uses grabbar to pull to stand.) Transfers (B, C, W/C) (FIM): 5 (Close SBA with stand pivot transfers.) Pt demonstrated ability to maneuver w/c to open lower cabinet doors/drawers and refrigerator in INU kitchen. Pt stood with close SBA leaning on cabinet to open upper cabinet doors and reach into. Pt discussed home environment and that he has a tub shower at home. Pt states that his family has grabbars to put in though still needs a tub transfer bench. After therapy, pt sitting in recliner with call light/phone in reach. All needs met in room. Other Treatment Pt maneuvered w/c to therapy gym. E-stim completed on pt's R shldr for AAROM with elevation then R bicep for AAROM with elbow flexion. Arm bike completed for 5 min with R hand RAQUEL wrapped to handle going forward then 5 min going backward to increase AROM and strength for daily functional tasks. Pt then worked on decreasing compensatory movements when reaching out then pulling R UE. Pt demonstrated understanding with movement and continued to work on it after JONES left room. OT Short Term Goals Short Term Goals Time Frame: Jan 29, 2017 Eating(FIM): 5 Grooming(FIM): 5 Bathing(FIM): 4 Upper Body Dressing(FIM): 4 Lower Body Dressing(FIM): 4 Toileting(FIM): 4 Transfers (B,C,W/C) (FIM): 4 Toilet/Commode Transfer(FIM): 4 Shower Transfer(FIM): 4 Additional Short Term Goals: 1-Demonstrate ADL Tasks, 2-Verbalize Understanding , 3-ImproveStrength/Delmy 1=Demonstrate adherence to instructed precautions during ADL tasks. 2=Patient will verbalize/demonstrate understanding of assistive devices/ modifications for ADL. 3=Patient will improve strength/tolerance for activity to enable patient to perform ADL's. OT Gas Leak Inspector Helper Goals Skilled Nursing Goals Time Frame: Feb 12, 2017 Eating (FIM): 6 Eating (QC): 6 Groomin Oral Hygiene (QC): 6 Bathing(FIM): 5 Shower/Bathe Self (QC): 5 Upper Body Dressing(FIM): 6 Upper Body Dressing (QC): 6 Lower Body Dressing(FIM): 6 Lower Body Dressing (QC): 6 On/Off Footwear (QC): 6 Toileting(FIM): 6 Toileting Hygiene (QC): 6 Transfers (B,C,W/C) (FIM): 6 Toilet/Commode Transfer(FIM): 6 Toilet/Commode Transfer (QC): 6 Shower Transfer(FIM): 6 Additional Goals: 1-Demonstrate ADL Tasks, 2-Verbalize Understanding, 3- ImproveStrength/Delmy 1=Demonstrate adherence to instructed precautions during ADL tasks. 2=Patient will verbalize/demonstrate understanding of assistive devices/ modifications for ADL. 3=Patient will improve strength/tolerance for activity to enable patient to perform ADL's. OT Education/Plan Discharge Recommendations Plan/Recommendations: Continue POC Treatment Plan/Plan of Care Patient would benefit from OT for education, treatment and training to promote independence in ADL's, mobility, safety and/or upper extremity function for ADL' s. Plan of Care: ADL Retraining, Caregiver Training, Cognitive Retraining, Functional Mobility, Group Exercise/Act as Ind, UE Funct Exercise/Act Treatment Duration: Feb 12, 2017 Visits Per Week: 10-12 Minutes/Day (M-F): 60-90 Minutes/Day (Sat/Gonzalez): prn Agreement: Yes Rehab Potential: Good Time/GCodes Start Time: 07:15 Stop Time: 08:30 Total Time Billed (hr/min): 75 Billed Treatment Time 1-ADL 1 (20 min) FA 1 (10 min) NM 3 (45 min) CHULA NGUYỄN Feb 10, 2017 08:49
--- NOTE | 2017-02-10 09:23 | PM & R (SOAP) Progress Note ---
Subjective Subjective/Events-last exam Patient was seen in his room this AM Progressing wel with therapies Patient Min assist for transfers and ambulation with a LBQC. Objective Exam Last Set of Vital Signs Vital Signs Date Time Temp Pulse Resp B/P Pulse Ox O2 Delivery O2 Flow Rate FiO2 02/10/17 09:00 Room Air 02/10/17 05:30 62 02/10/17 05:07 96.2 16 125/66 97 Capillary Refill : I&O Intake and Output 02/10/17 00:00 Intake Total 1400 ml Output Total 400 ml Balance 1000 ml Intake Oral 1400 ml Output Urine Total 400 ml # Voids 7 # Urine Diapers 1 General: Alert, Oriented X3, Cooperative, No Acute Distress HEENT: Atraumatic, PERRLA, EOMI, Mucous Memb Moist/[place], Other (rt labila droop ) Neck: Supple, No JVD Lungs: Clear to Auscultation Heart: Regular Rate Abdomen: Normal Bowel Sounds, Soft, No Tenderness Extremities: No Edema Neuro: Other (rt HP and mild cognitive impairment and word finding difficulty) Results Lab Laboratory Tests 02/07/17 11:08: Glucometer 93 02/07/17 16:30: Glucometer 136H 02/07/17 20:25: Glucometer 179H 02/08/17 05:13: Glucometer 128H 02/08/17 11:06: Glucometer 105 02/08/17 16:18: Glucometer 146H 02/08/17 20:33: Glucometer 212H 02/09/17 05:39: Glucometer 161H 02/09/17 11:23: Glucometer 122H 02/09/17 16:02: Glucometer 126H 02/09/17 21:06: Glucometer 153H Assessment/Plan Assessment Left CVA with RT HP HTN better controlled DM controlled -Diabetic education ordered Constipation treated Plan Continue PT/OT/ST Recheck Labs-done HTN meds adjusted earlier during stay with better control Constipation treated Appreciate Therapy notes and current labs Team Conference held yesterday 02/09/17-See report for full functional update and POC and ELOS Custom AFO ordered for patient DANIKA BRADLEY MD Feb 10, 2017 09:23
--- NOTE | 2017-02-10 10:05 | Speech Therapy Daily Note ---
Speech Daily Progress Note Subjective The patient was seated upright in recliner upon entrance. The patient greeted the clinician appropriately and agreed to participate in the language session on this date. Objective Word-Finding: The patient was provided a specific letter and cue. The patient was asked to identify the word the clinician was defining. The patient demonstrated good (improved) accuracy, displaying 85% accuracy with mild clinician verbal cueing. Per patient, he believes the cue aids him in filtering vocabulary options rather than leaving it "open." Assessment Assessment Current Status: Good Progress Treatment Plan Continue Plan of Care Communication Comprehension: 4 Expression: 4 Social Cognition Social Interaction: 5 Problem Solvin Memory: 4 Speech Short Term Goals Short Term Goals Short Term Goals 1. The patient will demonstrated 80% accuracy throughout structured word- finding tasks, independently. 2. The patient will recall and demonstrate two functional memory strategies for use at home, independently. Time Frame-STG: Two Weeks Speech Poultry Processor Goals Poultry Processor Goals 1. The patient will demonstrated improved expressive communication and cognitive skills for increased function and safety with ADL's. Time Frame: Four Weeks Speech-Plan Treatment Plan Speech Therapy Treatment Plan: Continue Plan of Care Continue skilled speech therapy to target expressive communication (specifically , word-finding). Treatment Duration: Feb 21, 2017 # of days/week Four to five. Visits Per Week: Four to five. Minutes/Day (M-F): 30 Rehab Potential: Good Safety Risks/Education Teaching Recipient: Patient Teaching Methods: Discussion Response to Teaching: Verbalize Understanding, Return Demonstration Education Topics Provided: Word-Finding Strategies Time Speech Therapy Time In: 09:00 Speech Therapy Time Out: 09:30 Total Billed Time: 30 Billed Treatment Time 1, FRANCOIS LEWIS Feb 10, 2017 10:05
--- NOTE | 2017-02-10 11:35 | Physical Therapy Daily Note ---
PT Daily Note-Current Subjective Patient in recliner pre tx, agrees to PT. No complaints of pain. Appearance Patient back to recliner post tx with nurse call, phone, tray, all needs met. Mental Status Patient Orientation: Person, Place, Situation Transfers Functional [place] Measure 0=Not Assessed/NA 4=Minimal Assistance 1=Total Assistance 5=Supervision or Setup 2=Maximal Assistance 6=Modified [place] 3=Moderate Assistance 7=Complete IndependenceIRFPAI Quality Coding Scale 6 Independent with activity with or without an assistive device 5 Patient requires set up or clean up by helper. Patient completes activity by themselves 4 Supervision or touching assist (CGA). [place] provide cues , steadying assist 3 The helper provides less than half the effort to complete the activity 2 The helper provides more than half the effort to complete the activity 1 Dependent. The helper does all the effort to complete an activity 7 Patient refused to complete or attempt activity 9 The patient did not perform the activity before the current illness or injury 88 Not attempted due to Medical conditions or safety concerns Transfers (B, C, W/C) (FIM): 4 Sit to/from Stand: 4 Bed to/from Chair: 4 Patient performs a stand pivot transfer to the left with CGA and to the right with min A sometimes but usually CGA Gait Training Gait (FIM): 4 Distance: 300'x2 Gait Level of Assist: 4 Gait Persons Needed: 1 Gait Assistive Device: Cane Large Base Quad selvin wrap on right ankle for dorsiflexion assist, right knee hyperextension, min assist for balance Stair Training Stair Training: Handrails/: 1 handrail Stairs (FIM): 4 #of Steps: 12 Stairs: Pattern: Step to Level of Assist: 4 CGA, patient did not have any losses of balance today, but he does need close guarding and cues for foot placement Exercises NuStep Minutes: 15 NuStep Workload: 5 Treatments transfers, ambulation, functional strengthening, stair training Assessment Current Status: Fair Progress Patient is still making slow progress with balance but no change in general mobility at this time. PT Short Term Goals Short Term Goals Time Frame: Feb 05, 2017 Transfers (B,C,W/C) (FIM): 4 Gait (FIM): 4 Distance (FIM): 3=150 ft Gait Assistive Device: Cane Large Base Quad Wheelchair Distance: 80' Stairs (FIM): 2 # of Steps: 4 Stairs Level of Assist: 4 PT Half-Way Goals Half-Way Goals PT Rn Complex Care Goals Time Frame: Feb 19, 2017 Transfers (B,C,W/C) (FIM): 6 Sit to Lying (QC): 6 Lying-Sitting on Side/Bed(QC): 6 Sit to Stand (QC): 6 Rollin Roll Left to Right (QC): 6 Chair/Zwa-kt-Sgihy Xfer(QC): 6 Car Transfer (QC): 6 Does the Patient Walk: Yes Gait (FIM): 5 (household) Gait distance (FIM): 8=169-90 ft Distance: 50 ft household Walk 10 feet (QC): 5 Walk 10ft-Uneven Surface(QC): 4 Walk 50ft with 2 Turns (QC): 5 Walk 150 ft (QC): 4 (asssit with this, CGA) Gait Assistive Device: Cane Large Base Quad Does the Pt use WC or Scooter?: Yes Wheelchair (FIM): 6 Wheelchair distance (FIM): 3=150 ft Wheel 50 feet with 2 turns (QC: 6 Stairs (FIM): 5 (household) # of Steps: 8 1 Step (curb) (QC): 5 4 Steps (QC): 5 12 Steps (QC): 5 Stairs Level Of Assist: 6 Picking up an Object (QC): 4 PT Plan Problem List Problem List: Activity Tolerance, Functional Strength, Safety, Balance, Gait, Transfer Treatment/Plan Treatment Plan: Continue Plan of Care Treatment Plan: Bed Mobility, Education, Functional Activity Delmy, Functional Strength, Group Therapy, Gait, Safety, Therapeutic Exercise, Transfers Treatment Duration: Feb 19, 2017 Visits Per Week: 10-*15 Minutes/Day (M-F): 60-90 Minutes/Day (Sat/Gonzalez): prn Safety Risks/Education Patient Education: Gait Training, Transfer Techniques, Steps, Safety Issues Teaching Recipient: Patient Teaching Methods: Demonstration, Discussion Response to Teaching: Reinforcement Needed Time/GCodes Time In: 1045 Time Out: 1130 Total Billed Treatment Time: 45 Total Billed Treatment 1 visit GT 30 min EX 15 min BROOKE WORLEY PT Feb 10, 2017 11:35
--- NOTE | 2017-02-10 15:00 | Physical Therapy Daily Note ---
PT Daily Note-Current Subjective Patient in recliner pre tx, agrees to PT, no complaints of pain. Appearance Patient in recliner post tx with nurse call,phone, tray, all needs met. Mental Status Patient Orientation: Person, Place, Situation Transfers Functional [place] Measure 0=Not Assessed/NA 4=Minimal Assistance 1=Total Assistance 5=Supervision or Setup 2=Maximal Assistance 6=Modified [place] 3=Moderate Assistance 7=Complete IndependenceIRFPAI Quality Coding Scale 6 Independent with activity with or without an assistive device 5 Patient requires set up or clean up by helper. Patient completes activity by themselves 4 Supervision or touching assist (CGA). [place] provide cues , steadying assist 3 The helper provides less than half the effort to complete the activity 2 The helper provides more than half the effort to complete the activity 1 Dependent. The helper does all the effort to complete an activity 7 Patient refused to complete or attempt activity 9 The patient did not perform the activity before the current illness or injury 88 Not attempted due to Medical conditions or safety concerns Transfers (B, C, W/C) (FIM): 4 Sit to/from Stand: 4 Gait Training Gait (FIM): 4 Distance: 200'x2 Gait Level of Assist: 4 Gait Persons Needed: 1 Gait Assistive Device: Cane Large Base Quad right selvin wrap on ankle for dorsiflexion assist, right knee hyperextension, min assist for balance Exercises LAQ right side for 5 min, sit to stand x10 Treatments functional strengthening, transfers, ambulation Assessment Current Status: Fair Progress patient had a little more trouble with balance during ambulation this afternoon but still min assist PT Short Term Goals Short Term Goals Time Frame: Feb 05, 2017 Transfers (B,C,W/C) (FIM): 4 Gait (FIM): 4 Distance (FIM): 3=150 ft Gait Assistive Device: Cane Large Base Quad Wheelchair Distance: 80' Stairs (FIM): 2 # of Steps: 4 Stairs Level of Assist: 4 PT Level Vial Inside Grinder Goals Level Vial Inside Grinder Goals PT Custodial Goals Time Frame: Feb 19, 2017 Transfers (B,C,W/C) (FIM): 6 Sit to Lying (QC): 6 Lying-Sitting on Side/Bed(QC): 6 Sit to Stand (QC): 6 Rollin Roll Left to Right (QC): 6 Chair/Zjy-bd-Lzsru Xfer(QC): 6 Car Transfer (QC): 6 Does the Patient Walk: Yes Gait (FIM): 5 (household) Gait distance (FIM): 2=108-36 ft Distance: 50 ft household Walk 10 feet (QC): 5 Walk 10ft-Uneven Surface(QC): 4 Walk 50ft with 2 Turns (QC): 5 Walk 150 ft (QC): 4 (asssit with this, CGA) Gait Assistive Device: Cane Large Base Quad Does the Pt use WC or Scooter?: Yes Wheelchair (FIM): 6 Wheelchair distance (FIM): 3=150 ft Wheel 50 feet with 2 turns (QC: 6 Stairs (FIM): 5 (household) # of Steps: 8 1 Step (curb) (QC): 5 4 Steps (QC): 5 12 Steps (QC): 5 Stairs Level Of Assist: 6 Picking up an Object (QC): 4 PT Plan Problem List Problem List: Activity Tolerance, Functional Strength, Safety, Balance, Gait, Transfer Treatment/Plan Treatment Plan: Continue Plan of Care Treatment Plan: Bed Mobility, Education, Functional Activity Delmy, Functional Strength, Group Therapy, Gait, Safety, Therapeutic Exercise, Transfers Treatment Duration: Feb 19, 2017 Visits Per Week: 10-*15 Minutes/Day (M-F): 60-90 Minutes/Day (Sat/Gonzalez): prn Safety Risks/Education Patient Education: Gait Training, Transfer Techniques, Correct Positioning, Safety Issues Teaching Recipient: Patient Teaching Methods: Demonstration, Discussion Response to Teaching: Reinforcement Needed Time/GCodes Time In: 1430 Time Out: 1500 Total Billed Treatment Time: 30 Total Billed Treatment 1 visit EX 10 min GT 20 min BROOKE WORLEY PT Feb 10, 2017 15:00
[2017-02-10 18:00] VITALS: BP 162/85
[2017-02-10] MEDS: ATORVASTATIN 40 MG (LIPITOR) TABLET PO SCH (21:04)
[2017-02-10] MEDS: inSUlin DETERMIR 1 UNIT/0.01 ML (LEVEMIR) CHARGE PER UNIT SQ SCH (21:04)
[2017-02-11 05:06] VITALS: BP 159/81
[2017-02-11] MEDS: inSUlin ASPART (NovoLOG) 1 UNIT/0.01 ML (CHARGE PER UNIT) SC SCH ×4 (05:08→20:27)
[2017-02-11] MEDS: hydrALAZINE (APRESOLINE) 25 MG TAB PO SCH ×3 (05:12→21:11)
--- NOTE | 2017-02-11 07:50 | Progress Note (SOAP) ---
Subjective Subjective/Events-last exam CVA. Hypertension. Rough night last night not able to sleep. Patient refuses medicine for sleep Objective Exam Vital Signs Date Time Temp Pulse Resp B/P Pulse Ox O2 Delivery O2 Flow Rate FiO2 02/11/17 05:06 98.5 67 18 159/81 97 Room Air 02/10/17 21:21 Room Air 02/10/17 18:00 97.2 61 18 162/85 97 Room Air 02/10/17 09:00 Room Air I & O 02/11/17 07:00 Intake Total 1200 ml Output Total 900 ml Balance 300 ml Capillary Refill : General Appearance: No Apparent Distress WD/WN HEENT: Normal ENT Inspection Neck: Normal Inspection Respiratory: Chest Non Tender Lungs Clear Normal Breath Sounds No Accessory Muscle Use No Respiratory Distress Cardiovascular: Regular Rate, Rhythm No Murmur Gastrointestinal: non tender soft Results Lab Laboratory Tests 02/10/17 11:24: Glucometer 107 02/10/17 16:36: Glucometer 112H 02/10/17 20:41: Glucometer 145H 02/11/17 04:27: Glucometer 116H Assessment/Plan Assessment/Plan Assess & Plan/Chief Complaint CVA on right. Hypertension. Diabetes. Patient when asked questions has a slow thought process. Patient unable to brain picker right hand. Patient does move his right leg. . 01/24/17. CVA on right. Hypertension. Diabetes. Patient is improving. Patient positive. . 01/25/17. CVA on right. Hypertension. HCTZ added. Patient moving right extremities better. Patient improving. . 01/26/17 CVA Hypertension Patient moving left extremities better. Patient improving. Blood pressure better today than yesterday. . 3/e last . CVA on right. Hypertension. Diabetes. Control. Patient talking better. . 01/28/17. CVA on right. Hypertension. Diabetes. Patient continues to improve slowly. . 01/31/17. CVA on right. Hypertension better. Sugars good. Positive to do PT and OT.. . 02/01/17. CVA in right. Hypertension doing better. Patient's left leg doing better. Slow process with left hand. . 02/02/17. CVA on right. Hypertension.. Patient moving toes in right foot. Patient still not moving right hand. . 02/03/17. CVA on right. Hypertension. Blood pressure better. Patient now starting to move the right hand. Right leg getting stronger. Patient in the right direction. . 02/04/17. CVA in right. Hypertension. Patient working hard. Patient progressing. . 02/07/17 Patient working hard. CVA. Hypertension. Patient moving right leg better. Patient struggling with right upper extremity. . 02/08/17. CVA on right. Hypertension. Diabetes. Patient working hard with PT and OT. . 02/09/17. CVA on right. Hypertension. Diabetes. Patient working hard at a stroke. . 01/26 05/14. CVA on right hypertension. Diabetes. Patient able to walk today without the brace on his right leg. . 02/11/17 CVA on right. Hypertension. Diabetes. Patient had a rough night and unable to sleep last night Clinical Quality Measures DVT/VTE Risk/Contraindication: Risk Factor Score Per Nursin RFS Level Per Nursing on Admit: 4+=Very High BENJY SANTANA DO Feb 11, 2017 07:50
--- NOTE | 2017-02-11 08:08 | Occupational Ther Daily Note ---
OT Current Status-Daily Note Subjective Pt sleeping, woke easily to name. Pt agreed to therapy. Pt stated that he had a restless night sleeping and pt did appear fatigued. Mental Status/Objective Patient Orientation: Person, Place, Time, Situation Functional [place] Measure 0=Not Assessed/NA 4=Minimal Assistance 1=Total Assistance 5=Supervision or Setup 2=Maximal Assistance 6=Modified [place] 3=Moderate Assistance 7=Complete [place] ADL-Treatment Functional [place] Measure 0=Not Assessed/NA 4=Minimal Assistance 1=Total Assistance 5=Supervision or Setup 2=Maximal Assistance 6=Modified [place] 3=Moderate Assistance 7=Complete IndependenceIRFPAI Quality Coding Scale 6 Independent with activity with or without an assistive device 5 Patient requires set up or clean up by helper. Patient completes activity by themselves 4 Supervision or touching assist (CGA). [place] provide cues , steadying assist 3 The helper provides less than half the effort to complete the activity 2 The helper provides more than half the effort to complete the activity 1 Dependent. The helper does all the effort to complete an activity 7 Patient refused to complete or attempt activity 9 The patient did not perform the activity before the current illness or injury 88 Not attempted due to Medical conditions or safety concerns Grooming (FIM): 6 (At w/c level in front of sink, pt able to complete by self.) Bathing (FIM): 6 (Using shower bench, grabbar and hand held shower pt able to complete own bathing and drying.) Upper Body (FIM): 4 (Due to increase fatigue pt had difficulty getting upper body clothing on today.) Lower Body Dressing (FIM): 4 (Due to increased fatigue pt had difficulty manipulating clothing. Pt able to get underwear and pants over feet then assist to hike pants over hips.) Toileting (FIM): 4 (CGA to manipulate clothing and hygiene) Transfers (B, C, W/C) (FIM): 4 (CGA for stand pivot transfers due to increase fatigue) Toilet/Commode Transfer (FIM): 4 (Due to increased fatigue pt required assistance to transfer using grabbars.) Shower Transfer(FIM): 4 (Using shower bench, grabbars and w/c pt required min A for shower transfer. Pt's L LE buckled during transfer due to increased fatigue.) Pt transferred back to bed, L LE buckled due to fatigue, min A. After therapy, pt lying in bed with call light/phone in reach. All needs met in room. OT Short Term Goals Short Term Goals Time Frame: Jan 29, 2017 Eating(FIM): 5 Grooming(FIM): 5 Bathing(FIM): 4 Upper Body Dressing(FIM): 4 Lower Body Dressing(FIM): 4 Toileting(FIM): 4 Transfers (B,C,W/C) (FIM): 4 Toilet/Commode Transfer(FIM): 4 Shower Transfer(FIM): 4 Additional Short Term Goals: 1-Demonstrate ADL Tasks, 2-Verbalize Understanding , 3-ImproveStrength/Delmy 1=Demonstrate adherence to instructed precautions during ADL tasks. 2=Patient will verbalize/demonstrate understanding of assistive devices/ modifications for ADL. 3=Patient will improve strength/tolerance for activity to enable patient to perform ADL's. OT Filtration Plant Mechanic Goals Mcc Goals Time Frame: Feb 12, 2017 Eating (FIM): 6 Eating (QC): 6 Groomin Oral Hygiene (QC): 6 Bathing(FIM): 5 Shower/Bathe Self (QC): 5 Upper Body Dressing(FIM): 6 Upper Body Dressing (QC): 6 Lower Body Dressing(FIM): 6 Lower Body Dressing (QC): 6 On/Off Footwear (QC): 6 Toileting(FIM): 6 Toileting Hygiene (QC): 6 Transfers (B,C,W/C) (FIM): 6 Toilet/Commode Transfer(FIM): 6 Toilet/Commode Transfer (QC): 6 Shower Transfer(FIM): 6 Additional Goals: 1-Demonstrate ADL Tasks, 2-Verbalize Understanding, 3- ImproveStrength/Delmy 1=Demonstrate adherence to instructed precautions during ADL tasks. 2=Patient will verbalize/demonstrate understanding of assistive devices/ modifications for ADL. 3=Patient will improve strength/tolerance for activity to enable patient to perform ADL's. OT Education/Plan Discharge Recommendations Plan/Recommendations: Continue POC Treatment Plan/Plan of Care Patient would benefit from OT for education, treatment and training to promote independence in ADL's, mobility, safety and/or upper extremity function for ADL' s. Plan of Care: ADL Retraining, Caregiver Training, Cognitive Retraining, Functional Mobility, Group Exercise/Act as Ind, UE Funct Exercise/Act Treatment Duration: Feb 12, 2017 Visits Per Week: 10-12 Minutes/Day (M-F): 60-90 Minutes/Day (Sat/Gonzalez): prn Agreement: Yes Rehab Potential: Good Time/GCodes Start Time: 07:00 Stop Time: 07:45 Total Time Billed (hr/min): 45 Billed Treatment Time 1 visit-ADL 3 (45 min) CHULA NGUYỄN Feb 11, 2017 08:08
[2017-02-11] MEDS: HYDROCHLOROTHIAZIDE 25 MG (HCTZ) TAB PO SCH (08:43)
[2017-02-11] MEDS: amLODIPine 5 MG (NORVASC) TAB PO SCH (08:43)
[2017-02-11] MEDS: ASPIRIN 325 MG (5 GR) TABLET PO SCH (08:43)
[2017-02-11] MEDS: SENNA W/DOCUSATE (SENOKOT S) TABLET PO SCH ×2 (08:44→20:28)
[2017-02-11] MEDS: meTOprolol TARTRATE 25 MG (LOPRESSOR) TABLET PO SCH ×2 (08:44→20:18)
--- NOTE | 2017-02-11 09:38 | PM & R (SOAP) Progress Note ---
Subjective Subjective/Events-last exam Patient was seen in is room earlier today. Progressing well with therapies Patient Min assist for transfers and Gait Objective Exam Last Set of Vital Signs Vital Signs Date Time Temp Pulse Resp B/P Pulse Ox O2 Delivery O2 Flow Rate FiO2 02/11/17 08:47 Room Air 02/11/17 05:06 98.5 67 18 159/81 97 Capillary Refill : I&O Intake and Output 02/11/17 00:00 Intake Total 1600 ml Output Total 600 ml Balance 1000 ml Intake Oral 1600 ml Output Urine Total 600 ml # Voids 8 # Bowel Movements 1 General: Alert, Oriented X3, Cooperative, No Acute Distress HEENT: Atraumatic, PERRLA, EOMI, Mucous Memb Moist/Schriever, Other (rt labila droop ) Neck: Supple, No JVD Lungs: Clear to Auscultation Heart: Regular Rate Abdomen: Normal Bowel Sounds, Soft, No Tenderness Extremities: No Edema Neuro: Other (rt HP and mild cognitive impairment and word finding difficulty) Results Lab Laboratory Tests 02/08/17 11:06: Glucometer 105 02/08/17 16:18: Glucometer 146H 02/08/17 20:33: Glucometer 212H 02/09/17 05:39: Glucometer 161H 02/09/17 11:23: Glucometer 122H 02/09/17 16:02: Glucometer 126H 02/09/17 21:06: Glucometer 153H 02/10/17 04:38: Glucometer 149H 02/10/17 11:24: Glucometer 107 02/10/17 16:36: Glucometer 112H 02/10/17 20:41: Glucometer 145H 02/11/17 04:27: Glucometer 116H Assessment/Plan Assessment Left CVA with RT HP HTN better controlled DM controlled -Diabetic education ordered Constipation treated Plan Continue PT/OT/ST Recheck Labs-done HTN meds adjusted earlier during stay with better control Constipation treated Appreciate Therapy notes and current labs Team Conference held 02/09/17-See report for full functional update and POC and ELOS Custom AFO ordered for patient DANIKA BRADLEY MD Feb 11, 2017 09:38
--- NOTE | 2017-02-11 10:34 | Physical Therapy Daily Note ---
PT Daily Note-Current Subjective Patient in bed pre tx, agrees to PT, no complaints of pain, he states he is very tired because he did not sleep very much last night but still motivated to participate. Appearance Patient in recliner post tx with nurse call, phone, tray, all needs met. Mental Status Patient Orientation: Normal For Age Transfers Functional [place] Measure 0=Not Assessed/NA 4=Minimal Assistance 1=Total Assistance 5=Supervision or Setup 2=Maximal Assistance 6=Modified [place] 3=Moderate Assistance 7=Complete IndependenceIRFPAI Quality Coding Scale 6 Independent with activity with or without an assistive device 5 Patient requires set up or clean up by helper. Patient completes activity by themselves 4 Supervision or touching assist (CGA). [place] provide cues , steadying assist 3 The helper provides less than half the effort to complete the activity 2 The helper provides more than half the effort to complete the activity 1 Dependent. The helper does all the effort to complete an activity 7 Patient refused to complete or attempt activity 9 The patient did not perform the activity before the current illness or injury 88 Not attempted due to Medical conditions or safety concerns Transfers (B, C, W/C) (FIM): 4 Scootin Rollin Supine to/from Sit: 6 Sit to/from Stand: 4 Bed to/from Chair: 4 stand pivot CGA to the right and still occasionally min assist to the left, patient can perform bed mobility with mod I, it does require some effort on occasion on his part but he can still do it himself and in a safe manner Gait Training Gait (FIM): 4 Distance: 200'x2 Gait Level of Assist: 4 Gait Persons Needed: 1 Gait Assistive Device: Cane Large Base Quad [place] wrap on right ankle for dorsiflexion assist, min assist for balance, right knee hyperextension. Exercises Standing: Hip Abduction Standing Reps: 20 right side toe touches on step x20, tried step ups using right leg support but his knee hyperextension was too bad so we stopped after a couple of reps NuStep Minutes: 15 NuStep Workload: 5 Treatments bed mobility and transfers, ambulation, functional strengthening Assessment Current Status: Fair Progress Patient was able to ambulate 200' (the first walk) without a loss of balance, he did have a couple on the second walk though. PT Short Term Goals Short Term Goals Time Frame: Feb 05, 2017 Transfers (B,C,W/C) (FIM): 4 Gait (FIM): 4 Distance (FIM): 3=150 ft Gait Assistive Device: Cane Large Base Quad Wheelchair Distance: 80' Stairs (FIM): 2 # of Steps: 4 Stairs Level of Assist: 4 PT Senior Living Goals [place] Goals PT Senior Living Goals Time Frame: Feb 19, 2017 Transfers (B,C,W/C) (FIM): 6 Sit to Lying (QC): 6 Lying-Sitting on Side/Bed(QC): 6 Sit to Stand (QC): 6 Rollin Roll Left to Right (QC): 6 Chair/Rmr-ug-Xbcko Xfer(QC): 6 Car Transfer (QC): 6 Does the Patient Walk: Yes Gait (FIM): 5 (household) Gait distance (FIM): 2=160-93 ft Distance: 50 ft household Walk 10 feet (QC): 5 Walk 10ft-Uneven Surface(QC): 4 Walk 50ft with 2 Turns (QC): 5 Walk 150 ft (QC): 4 (asssit with this, CGA) Gait Assistive Device: Cane Large Base Quad Does the Pt use WC or Scooter?: Yes Wheelchair (FIM): 6 Wheelchair distance (FIM): 3=150 ft Wheel 50 feet with 2 turns (QC: 6 Stairs (FIM): 5 (household) # of Steps: 8 1 Step (curb) (QC): 5 4 Steps (QC): 5 12 Steps (QC): 5 Stairs Level Of Assist: 6 Picking up an Object (QC): 4 PT Plan Problem List Problem List: Activity Tolerance, Functional Strength, Safety, Balance, Gait, Transfer, Bed Mobility, ROM Treatment/Plan Treatment Plan: Continue Plan of Care Treatment Plan: Bed Mobility, Education, Functional Activity Delmy, Functional Strength, Group Therapy, Gait, Safety, Therapeutic Exercise, Transfers Treatment Duration: Feb 19, 2017 Visits Per Week: 10-*15 Minutes/Day (M-F): 60-90 Minutes/Day (Sat/Gonzalez): prn Safety Risks/Education Patient Education: Gait Training, Transfer Techniques, Correct Positioning, Safety Issues Teaching Recipient: Patient Teaching Methods: Demonstration, Discussion Response to Teaching: Reinforcement Needed Time/GCodes Time In: 945 Time Out: 1030 Total Billed Treatment Time: 45 Total Billed Treatment 1 visit GT 25 min EX 20 min BROOKE WORLEY PT Feb 11, 2017 10:34
--- NOTE | 2017-02-11 11:39 | Speech Therapy Daily Note ---
Speech Daily Progress Note Subjective The patient was seated upright on the edge of bed upon entrance. The patient greeted the clinician appropriately and agreed to participate in the language session on this date. Objective Word-Finding: The patient was provided a specific letter and cue. The patient was asked to identify the word the clinician was defining. The patient demonstrated good (consistent) accuracy, displaying 85% accuracy with mild clinician verbal cueing. Per patient, he continues to believe the cue aids him in filtering vocabulary options rather than leaving it "open." Assessment Assessment Current Status: Good Progress Treatment Plan Continue Plan of Care Communication Comprehension: 5 Expression: 4 Social Cognition Social Interaction: 5 Problem Solvin Memory: 5 Speech Short Term Goals Short Term Goals Short Term Goals 1. The patient will demonstrated 80% accuracy throughout structured word- finding tasks, independently. 2. The patient will recall and demonstrate two functional memory strategies for use at home, independently. Time Frame-STG: Two Weeks Speech Party Plan Demonstrator Goals Half-Way Goals 1. The patient will demonstrated improved expressive communication and cognitive skills for increased function and safety with ADL's. Time Frame: Four Weeks Speech-Plan Treatment Plan Speech Therapy Treatment Plan: Continue Plan of Care Continue skilled speech therapy to target expressive communication. Treatment Duration: Feb 21, 2017 # of days/week Four to Five. Visits Per Week: Four to five. Minutes/Day (M-F): 30 Rehab Potential: Good Safety Risks/Education Teaching Recipient: Patient Teaching Methods: Discussion Response to Teaching: Verbalize Understanding, Return Demonstration Education Topics Provided: Word-Finding Strategies Time Speech Therapy Time In: 09:00 Speech Therapy Time Out: 09:30 Total Billed Time: 30 Billed Treatment Time 1, FRANCOIS LEWIS Feb 11, 2017 11:39
--- NOTE | 2017-02-11 13:17 | Physical Therapy Daily Note ---
PT Daily Note-Current Subjective Patient agrees to PT. No c/o at this time. Pain Numeric Pain Scale: 0-No Pain Mental Status Patient Orientation: Person, Time, Situation Transfers Functional [place] Measure 0=Not Assessed/NA 4=Minimal Assistance 1=Total Assistance 5=Supervision or Setup 2=Maximal Assistance 6=Modified [place] 3=Moderate Assistance 7=Complete IndependenceIRFPAI Quality Coding Scale 6 Independent with activity with or without an assistive device 5 Patient requires set up or clean up by helper. Patient completes activity by themselves 4 Supervision or touching assist (CGA). [place] provide cues , steadying assist 3 The helper provides less than half the effort to complete the activity 2 The helper provides more than half the effort to complete the activity 1 Dependent. The helper does all the effort to complete an activity 7 Patient refused to complete or attempt activity 9 The patient did not perform the activity before the current illness or injury 88 Not attempted due to Medical conditions or safety concerns Transfers (B, C, W/C) (FIM): 4 Scootin Sit to/from Stand: 4 Sit to Stand (QC): 4 CGA for safety with sit to stand transfers Gait Training Does the Patient Walk?: Yes Gait (FIM): 4 Distance (FIM): 3=150 ft Distance: 150' x 2 Gait Level of Assist: 4 Gait Persons Needed: 1 Gait Assistive Device: Cane Large Base Quad step to gait sequence with verbal instruction for hip flexion right LE to advance right LE. Exercises Standin way Ex=Flex, Abd, Ext, Marching, Mini squats Standing Reps: 10 Assessment Patient is advancing with treatment plan and is highly motivated with progress. PT Short Term Goals Short Term Goals Time Frame: Feb 05, 2017 Transfers (B,C,W/C) (FIM): 4 Gait (FIM): 4 Distance (FIM): 3=150 ft Gait Assistive Device: Cane Large Base Quad Wheelchair Distance: 80' Stairs (FIM): 2 # of Steps: 4 Stairs Level of Assist: 4 PT [place] Grader Goals Skilled Nursing Goals PT Skilled Nursing Goals Time Frame: Feb 19, 2017 Transfers (B,C,W/C) (FIM): 6 Sit to Lying (QC): 6 Lying-Sitting on Side/Bed(QC): 6 Sit to Stand (QC): 6 Rollin Roll Left to Right (QC): 6 Chair/Ouv-ho-Nmuvr Xfer(QC): 6 Car Transfer (QC): 6 Does the Patient Walk: Yes Gait (FIM): 5 (household) Gait distance (FIM): 6=055-36 ft Distance: 50 ft household Walk 10 feet (QC): 5 Walk 10ft-Uneven Surface(QC): 4 Walk 50ft with 2 Turns (QC): 5 Walk 150 ft (QC): 4 (asssit with this, CGA) Gait Assistive Device: Cane Large Base Quad Does the Pt use WC or Scooter?: Yes Wheelchair (FIM): 6 Wheelchair distance (FIM): 3=150 ft Wheel 50 feet with 2 turns (QC: 6 Stairs (FIM): 5 (household) # of Steps: 8 1 Step (curb) (QC): 5 4 Steps (QC): 5 12 Steps (QC): 5 Stairs Level Of Assist: 6 Picking up an Object (QC): 4 PT Plan Treatment/Plan Treatment Plan: Continue Plan of Care Treatment Plan: Bed Mobility, Education, Functional Activity Delmy, Functional Strength, Group Therapy, Gait, Safety, Therapeutic Exercise, Transfers Treatment Duration: Feb 19, 2017 Visits Per Week: 10-*15 Minutes/Day (M-F): 60-90 Minutes/Day (Sat/Gonzalez): prn Time/GCodes Time In: 1050 Time Out: 1120 Total Billed Treatment Time: 30 Total Billed Treatment 1 visit EX 15 min GT 15 min CATHERINE CESAR PT Feb 11, 2017 13:17
--- NOTE | 2017-02-11 13:50 | Occupational Ther Daily Note ---
OT Current Status-Daily Note Subjective Pt alert, sitting in recliner. Pt agreed to therapy. No c/o pain. Mental Status/Objective Patient Orientation: Person, Place, Time, Situation Functional [place] Measure 0=Not Assessed/NA 4=Minimal Assistance 1=Total Assistance 5=Supervision or Setup 2=Maximal Assistance 6=Modified [place] 3=Moderate Assistance 7=Complete [place] ADL-Treatment Functional [place] Measure 0=Not Assessed/NA 4=Minimal Assistance 1=Total Assistance 5=Supervision or Setup 2=Maximal Assistance 6=Modified [place] 3=Moderate Assistance 7=Complete IndependenceIRFPAI Quality Coding Scale 6 Independent with activity with or without an assistive device 5 Patient requires set up or clean up by helper. Patient completes activity by themselves 4 Supervision or touching assist (CGA). [place] provide cues , steadying assist 3 The helper provides less than half the effort to complete the activity 2 The helper provides more than half the effort to complete the activity 1 Dependent. The helper does all the effort to complete an activity 7 Patient refused to complete or attempt activity 9 The patient did not perform the activity before the current illness or injury 88 Not attempted due to Medical conditions or safety concerns Other Treatment Pt's stand pivot transfer close SBA to w/c. Then maneuvered w/c to large shower room to work on tub/shower transfers. Pt was able to position w/c correctly then transferred into tub with close SBA. Pt lifted B LE into the tub , assist needed to lift R LE out of tub then transferred off of tub transfer bench with close SBA. Pt then went to therapy gym to work on wt bearing with R UE and functional mobility with rolling to lay on L side. B APROM while in supine for B shldrs. After therapy, pt sitting in recliner with call light/ phone in reach. All needs met in room. OT Short Term Goals Short Term Goals Time Frame: Jan 29, 2017 Eating(FIM): 5 Grooming(FIM): 5 Bathing(FIM): 4 Upper Body Dressing(FIM): 4 Lower Body Dressing(FIM): 4 Toileting(FIM): 4 Transfers (B,C,W/C) (FIM): 4 Toilet/Commode Transfer(FIM): 4 Shower Transfer(FIM): 4 Additional Short Term Goals: 1-Demonstrate ADL Tasks, 2-Verbalize Understanding , 3-ImproveStrength/Delmy 1=Demonstrate adherence to instructed precautions during ADL tasks. 2=Patient will verbalize/demonstrate understanding of assistive devices/ modifications for ADL. 3=Patient will improve strength/tolerance for activity to enable patient to perform ADL's. OT Intermediate Goals Intermediate Goals Time Frame: Feb 12, 2017 Eating (FIM): 6 Eating (QC): 6 Groomin Oral Hygiene (QC): 6 Bathing(FIM): 5 Shower/Bathe Self (QC): 5 Upper Body Dressing(FIM): 6 Upper Body Dressing (QC): 6 Lower Body Dressing(FIM): 6 Lower Body Dressing (QC): 6 On/Off Footwear (QC): 6 Toileting(FIM): 6 Toileting Hygiene (QC): 6 Transfers (B,C,W/C) (FIM): 6 Toilet/Commode Transfer(FIM): 6 Toilet/Commode Transfer (QC): 6 Shower Transfer(FIM): 6 Additional Goals: 1-Demonstrate ADL Tasks, 2-Verbalize Understanding, 3- ImproveStrength/Delmy 1=Demonstrate adherence to instructed precautions during ADL tasks. 2=Patient will verbalize/demonstrate understanding of assistive devices/ modifications for ADL. 3=Patient will improve strength/tolerance for activity to enable patient to perform ADL's. OT Education/Plan Discharge Recommendations Plan/Recommendations: Continue POC Treatment Plan/Plan of Care Patient would benefit from OT for education, treatment and training to promote independence in ADL's, mobility, safety and/or upper extremity function for ADL' s. Plan of Care: ADL Retraining, Caregiver Training, Cognitive Retraining, Functional Mobility, Group Exercise/Act as Ind, UE Funct Exercise/Act Treatment Duration: Feb 12, 2017 Visits Per Week: 10-12 Minutes/Day (M-F): 60-90 Minutes/Day (Sat/Gonzalez): prn Agreement: Yes Rehab Potential: Good Time/GCodes Start Time: 13:00 Stop Time: 13:30 Total Time Billed (hr/min): 30 Billed Treatment Time 1 visit-FA 2 (30 min) CHULA NGUYỄN Feb 11, 2017 13:50
[2017-02-11 17:21] VITALS: BP 143/76
[2017-02-11] MEDS: ATORVASTATIN 40 MG (LIPITOR) TABLET PO SCH (20:18)
[2017-02-11] MEDS: inSUlin DETERMIR 1 UNIT/0.01 ML (LEVEMIR) CHARGE PER UNIT SQ SCH (20:19)
[2017-02-12] MEDS: inSUlin ASPART (NovoLOG) 1 UNIT/0.01 ML (CHARGE PER UNIT) SC SCH ×4 (05:24→21:00)
[2017-02-12] MEDS: hydrALAZINE (APRESOLINE) 25 MG TAB PO SCH ×3 (05:24→21:37)
[2017-02-12 05:38] VITALS: BP 138/82
[2017-02-12] MEDS: amLODIPine 5 MG (NORVASC) TAB PO SCH (08:40)
[2017-02-12] MEDS: SENNA W/DOCUSATE (SENOKOT S) TABLET PO SCH ×2 (08:40→21:38)
[2017-02-12] MEDS: ASPIRIN 325 MG (5 GR) TABLET PO SCH (08:40)
[2017-02-12] MEDS: meTOprolol TARTRATE 25 MG (LOPRESSOR) TABLET PO SCH ×2 (08:40→21:37)
[2017-02-12] MEDS: HYDROCHLOROTHIAZIDE 25 MG (HCTZ) TAB PO SCH (08:40)
--- NOTE | 2017-02-12 09:58 | Physical Therapy Daily Note ---
PT Daily Note-Current Subjective Agrees to PT. Acknowledges that we will be doing family training on Tuesday with his . Pain Numeric Pain Scale: 0-No Pain Location: No Pain Reported Mental Status Patient Orientation: Person, Place, Time, Situation occas word finding difficulties. Transfers Functional [place] Measure 0=Not Assessed/NA 4=Minimal Assistance 1=Total Assistance 5=Supervision or Setup 2=Maximal Assistance 6=Modified [place] 3=Moderate Assistance 7=Complete IndependenceIRFPAI Quality Coding Scale 6 Independent with activity with or without an assistive device 5 Patient requires set up or clean up by helper. Patient completes activity by themselves 4 Supervision or touching assist (CGA). [place] provide cues , steadying assist 3 The helper provides less than half the effort to complete the activity 2 The helper provides more than half the effort to complete the activity 1 Dependent. The helper does all the effort to complete an activity 7 Patient refused to complete or attempt activity 9 The patient did not perform the activity before the current illness or injury 88 Not attempted due to Medical conditions or safety concerns Pt able to get out of bed mod indep with bedrail and sit to stand with SBA. Gait Training Gait training 150 ft , 50 ft x 2 and 250 ft with QC with close CGA and right foot wrapped to provide DF support. 2 incidences of right knee starting to buckle but pt able to self recover. right knee tends to pop into ext with gait , the custom AFO requested should assist with DF assist and limited hyperextension of the right knee. Stair Training Up/down 12 steps with handrail on the left with close CGA and cues 25% of the time for sequencing. Needs close assist due to fall risk and still needing reminders to sequence properly. Assessment Current Status: Good Progress Pt continues to make functional gains, DF and hyperextension will be improved with AFO, still a bit impulsive requiring skilled cueing for safety and sequencing. Pt and family will benefit from family training for optimal success at home upon discharge. PT Short Term Goals Short Term Goals Time Frame: Feb 05, 2017 Transfers (B,C,W/C) (FIM): 4 (met) Gait (FIM): 4 (met) Distance (FIM): 3=150 ft Gait Assistive Device: Cane Large Base Quad Wheelchair Distance: 80' Stairs (FIM): 2 (met) # of Steps: 4 Stairs Level of Assist: 4 PT Prison Goals Prison Goals PT Prison Goals Time Frame: Feb 19, 2017 Transfers (B,C,W/C) (FIM): 6 Sit to Lying (QC): 6 Lying-Sitting on Side/Bed(QC): 6 Sit to Stand (QC): 6 Rollin Roll Left to Right (QC): 6 Chair/Oyw-ba-Msbbj Xfer(QC): 6 Car Transfer (QC): 6 Does the Patient Walk: Yes Gait (FIM): 5 (household) Gait distance (FIM): 8=792-71 ft Distance: 50 ft household Walk 10 feet (QC): 5 Walk 10ft-Uneven Surface(QC): 4 Walk 50ft with 2 Turns (QC): 5 Walk 150 ft (QC): 4 (asssit with this, CGA) Gait Assistive Device: Cane Large Base Quad Does the Pt use WC or Scooter?: Yes Wheelchair (FIM): 6 Wheelchair distance (FIM): 3=150 ft Wheel 50 feet with 2 turns (QC: 6 Stairs (FIM): 5 (household) # of Steps: 8 1 Step (curb) (QC): 5 4 Steps (QC): 5 12 Steps (QC): 5 Stairs Level Of Assist: 6 Picking up an Object (QC): 4 PT Plan Problem List Problem List: Activity Tolerance, Functional Strength, Safety, Balance, Gait, Transfer Treatment/Plan Treatment Plan: Continue Plan of Care Treatment Plan: Bed Mobility, Education, Functional Activity Delmy, Functional Strength, Group Therapy, Gait, Safety, Therapeutic Exercise, Transfers Treatment Duration: Feb 19, 2017 Visits Per Week: 10-*15 Minutes/Day (M-F): 60-90 Minutes/Day (Sat/Gonzalez): prn Safety Risks/Education Patient Education: Transfer Techniques, Steps, Safety Issues Teaching Recipient: Patient Teaching Methods: Demonstration, Discussion Response to Teaching: Return Demonstration, Reinforcement Needed Discharge Recommendations Plan Family training on Tuesday. Time/GCodes Time In: 923 Time Out: 955 Total Billed Treatment Time: 32 Total Billed Treatment visit GT 32 CHULA MULLEN PT Feb 12, 2017 09:58
[2017-02-12 18:20] VITALS: BP 157/77
[2017-02-12] MEDS: ATORVASTATIN 40 MG (LIPITOR) TABLET PO SCH (21:37)
[2017-02-12] MEDS: inSUlin DETERMIR 1 UNIT/0.01 ML (LEVEMIR) CHARGE PER UNIT SQ SCH (21:38)
[2017-02-13 06:00] VITALS: BP 160/69
[2017-02-13] MEDS: inSUlin ASPART (NovoLOG) 1 UNIT/0.01 ML (CHARGE PER UNIT) SC SCH ×4 (06:00→21:00)
[2017-02-13] MEDS: hydrALAZINE (APRESOLINE) 25 MG TAB PO SCH ×3 (06:55→21:00)
[2017-02-13 08:31] VITALS: BP 153/76
[2017-02-13] MEDS: ASPIRIN 325 MG (5 GR) TABLET PO SCH (08:32)
[2017-02-13] MEDS: HYDROCHLOROTHIAZIDE 25 MG (HCTZ) TAB PO SCH (08:32)
[2017-02-13] MEDS: amLODIPine 5 MG (NORVASC) TAB PO SCH (08:32)
[2017-02-13] MEDS: SENNA W/DOCUSATE (SENOKOT S) TABLET PO SCH ×2 (08:32→21:00)
[2017-02-13] MEDS: meTOprolol TARTRATE 25 MG (LOPRESSOR) TABLET PO SCH ×2 (08:32→21:00)
[2017-02-13 17:10] VITALS: BP 150/79
[2017-02-13] MEDS: ATORVASTATIN 40 MG (LIPITOR) TABLET PO SCH (21:00)
[2017-02-13] MEDS: inSUlin DETERMIR 1 UNIT/0.01 ML (LEVEMIR) CHARGE PER UNIT SQ SCH (21:01)
[2017-02-14] MEDS: inSUlin ASPART (NovoLOG) 1 UNIT/0.01 ML (CHARGE PER UNIT) SC SCH ×4 (05:08→21:00)
[2017-02-14] MEDS: hydrALAZINE (APRESOLINE) 25 MG TAB PO SCH ×3 (05:09→21:28)
[2017-02-14 05:24] VITALS: BP 160/78
--- NOTE | 2017-02-14 07:51 | Occ Therapy Rehab Re-Cert ---
OT Re-Certification Form Plan of Care: ADL Retraining, Caregiver Training, Cognitive Retraining, Functional Mobility, Group Exercise/Act as Ind, UE Funct Exercise/Act Pt admitted with CVA and right side deficits. Pt is progressing with therapy. Pt is able to complete grooming with modified independence. Dressing and transfers are completed with minimal assistance. Pt would benefit from continued skilled therapy in ARU setting for further ADL training, transfer training, strengthening, and home safety education to maximize level of function and allow safe return home with spouse. Continue current goals. Treatment Duration: February 19, 2017 # of days/week 5-6 Visits Per Week: 10-12 Minutes/Day (M-F): 60-90 Minutes/Day (Sat/Gonzalez): prn Agreement: Yes Rehab Potential: Good OT Short Term Goals Short Term Goals Time Frame: Jan 29, 2017 Eating(FIM): 5 Grooming(FIM): 5 Bathing(FIM): 4 Upper Body Dressing(FIM): 4 Lower Body Dressing(FIM): 4 Toileting(FIM): 4 Transfers (B,C,W/C) (FIM): 4 (met) Toilet/Commode Transfer(FIM): 4 Shower Transfer(FIM): 4 Additional Short Term Goals: 1-Demonstrate ADL Tasks, 2-Verbalize Understanding , 3-ImproveStrength/Delmy 1=Demonstrate adherence to instructed precautions during ADL tasks. 2=Patient will verbalize/demonstrate understanding of assistive devices/ modifications for ADL. 3=Patient will improve strength/tolerance for activity to enable patient to perform ADL's. OT Architecture Professor Goals Architecture Professor Goals Time Frame: Feb 12, 2017 Eating (FIM): 6 Grooming(FIM): 6 Bathing(FIM): 5 Upper Body Dressing(FIM): 6 Lower Body Dressing(FIM): 6 Toileting(FIM): 6 Transfers (B,C,W/C) (FIM): 6 Toilet/Commode Transfer(FIM): 6 Shower Transfer(FIM): 6 Additional Goals: 1-Demonstrate ADL Tasks, 2-Verbalize Understanding, 3- ImproveStrength/Delmy 1=Demonstrate adherence to instructed precautions during ADL tasks. 2=Patient will verbalize/demonstrate understanding of assistive devices/ modifications for ADL. 3=Patient will improve strength/tolerance for activity to enable patient to perform ADL's. JOSSIE GALVEZ OT Feb 14, 2017 07:51
[2017-02-14 07:57] VITALS: BP 164/86
[2017-02-14] MEDS: SENNA W/DOCUSATE (SENOKOT S) TABLET PO SCH ×2 (08:00→20:00)
[2017-02-14] MEDS: ASPIRIN 325 MG (5 GR) TABLET PO SCH (08:00)
[2017-02-14] MEDS: amLODIPine 5 MG (NORVASC) TAB PO SCH (08:00)
[2017-02-14] MEDS: HYDROCHLOROTHIAZIDE 25 MG (HCTZ) TAB PO SCH (08:00)
[2017-02-14] MEDS: meTOprolol TARTRATE 25 MG (LOPRESSOR) TABLET PO SCH ×2 (08:01→20:01)
--- NOTE | 2017-02-14 08:26 | Progress Note (SOAP) ---
Subjective Subjective/Events-last exam CVA. Hypertension. Patient slowly improving. Objective Exam Vital Signs Date Time Temp Pulse Resp B/P Pulse Ox O2 Delivery O2 Flow Rate FiO2 02/14/17 07:57 81 164/86 02/14/17 05:24 98.2 73 18 160/78 98 Room Air 02/13/17 20:55 Room Air 02/13/17 17:10 99.7 60 18 150/79 98 Room Air 02/13/17 09:34 Room Air 02/13/17 08:31 66 153/76 I & O 02/14/17 07:00 Intake Total 780 ml Output Total 450 ml Balance 330 ml Capillary Refill : General Appearance: No Apparent Distress WD/WN Results Lab Laboratory Tests 02/13/17 17:08: Glucometer 162H 02/13/17 20:52: Glucometer 159H 02/14/17 05:07: Glucometer 131H Assessment/Plan Assessment/Plan Assess & Plan/Chief Complaint CVA on right. Hypertension. Diabetes. Patient when asked questions has a slow thought process. Patient unable to picker/puller right hand. Patient does move his right leg. . 01/24/17. CVA on right. Hypertension. Diabetes. Patient is improving. Patient positive. . 01/25/17. CVA on right. Hypertension. HCTZ added. Patient moving right extremities better. Patient improving. . 01/26/17 CVA Hypertension Patient moving left extremities better. Patient improving. Blood pressure better today than yesterday. . 3/e last . CVA on right. Hypertension. Diabetes. Control. Patient talking better. . 01/28/17. CVA on right. Hypertension. Diabetes. Patient continues to improve slowly. . 01/31/17. CVA on right. Hypertension better. Sugars good. Positive to do PT and OT.. . 02/01/17. CVA in right. Hypertension doing better. Patient's left leg doing better. Slow process with left hand. . 02/02/17. CVA on right. Hypertension.. Patient moving toes in right foot. Patient still not moving right hand. . 02/03/17. CVA on right. Hypertension. Blood pressure better. Patient now starting to move the right hand. Right leg getting stronger. Patient in the right direction. . 02/04/17. CVA in right. Hypertension. Patient working hard. Patient progressing. . 02/07/17 Patient working hard. CVA. Hypertension. Patient moving right leg better. Patient struggling with right upper extremity. . 02/08/17. CVA on right. Hypertension. Diabetes. Patient working hard with PT and OT. . 02/09/17. CVA on right. Hypertension. Diabetes. Patient working hard at a stroke. . 01/26 05/14. CVA on right hypertension. Diabetes. Patient able to walk today without the brace on his right leg. . 02/11/17 CVA on right. Hypertension. Diabetes. Patient had a rough night and unable to sleep last nightarea . CVA on right. Hypertension. Diabetes. Patient slowly improving Clinical Quality Measures DVT/VTE Risk/Contraindication: Risk Factor Score Per Nursin RFS Level Per Nursing on Admit: 4+=Very High BENJY SANTANA DO Feb 14, 2017 08:26
--- NOTE | 2017-02-14 09:23 | Occupational Ther Daily Note ---
OT Current Status-Daily Note Subjective Pt alert, lying in bed. Family present for training. Pt agreed to therapy. No c/o pain at this time. Mental Status/Objective Patient Orientation: Person, Place, Time, Situation Functional [place] Measure 0=Not Assessed/NA 4=Minimal Assistance 1=Total Assistance 5=Supervision or Setup 2=Maximal Assistance 6=Modified [place] 3=Moderate Assistance 7=Complete [place] ADL-Treatment Functional [place] Measure 0=Not Assessed/NA 4=Minimal Assistance 1=Total Assistance 5=Supervision or Setup 2=Maximal Assistance 6=Modified [place] 3=Moderate Assistance 7=Complete IndependenceIRFPAI Quality Coding Scale 6 Independent with activity with or without an assistive device 5 Patient requires set up or clean up by helper. Patient completes activity by themselves 4 Supervision or touching assist (CGA). [place] provide cues , steadying assist 3 The helper provides less than half the effort to complete the activity 2 The helper provides more than half the effort to complete the activity 1 Dependent. The helper does all the effort to complete an activity 7 Patient refused to complete or attempt activity 9 The patient did not perform the activity before the current illness or injury 88 Not attempted due to Medical conditions or safety concerns Eating (FIM): 6 (Pt is able open containers/packages. Uses rocker knife to cut food then regular utensils to feed self.) Eating (QC): 6 (Pt is able open containers/packages. Uses rocker knife to cut food then regular utensils to feed self.) Grooming (FIM): 6 (Sitting at w/c level, pt is able to comlete own grooming.) Oral Hygiene (QC): 6 (Sitting at w/c level, pt is able to comlete own oral care.) Bathing (FIM): 6 (Safety concerns. Using shower bench, grabbars and hand held shower pt is able to complete own bathing/drying. Pt leans side to side to cleanse buttocks.) Bathing Location: L Arm, R Arm, L Upper Leg, R Upper Leg, L Lower Leg ( including foot), R Lower Leg (including foot), Chest, Abdomen, Buttocks, Perineal Area Shower/Bathe Self (QC): 6 (Safety concerns. Using shower bench, grabbars and hand held shower pt is able to complete own bathing/drying. Pt leans side to side to cleanse buttocks.) Upper Body (FIM): 5 (After set up, pt is able to complete upper body dressing with gum puller shirt.) Upper Body Dressing (QC): 5 (After set up, pt is able to complete upper body dressing with gum puller shirt.) Lower Body Dressing (FIM): 5 (After set up, using grabbars to stand then leans on wall to balance self when hiking pants over hips, close SBA. Dons/doffs pants, underwear and socks by self.) Lower Body Dressing (QC): 4 (After set up, using grabbars to stand then leans on wall to balance self when hiking pants over hips, close SBA. Dons/doffs pants, underwear and socks by self.) On/Off Footwear (QC): 5 (After set up, pt is able to complete donning/doffing footwear by crossing one leg over the other.) Toileting (FIM): 5 (Using grabbars pt is able to complete own toileting with SBA for safety.) Toileting Hygiene (QC): 4 (Using grabbars pt is able to complete own toileting with SBA for safety.) Transfers (B, C, W/C) (FIM): 5 (Close SBA for stand pivot transfers) Toilet/Commode Transfer (FIM): 5 (Close SBA for stand pivot transfers using grabbars.) Toilet Transfer (QC): 4 (Close SBA for stand pivot transfers using grabbars.) Shower Transfer(FIM): 5 (Close SBA for stand pivot transfers using grabbars and shower bench.) Pt worked on tub bench transfers today. Pt has tub shower at home and due to decreased mobility and safety concerns tub transfer bench is recommended. Pt demonstrated ability to transfer onto tub transfer bench and swing B LE's into tub, assist to swing R LE out of tub. Other Treatment Educated family on UE exercises in supine and sitting EOB. Pt demonstrated shldr elevation/depression, elbow ext/flex and finger flexion. Wt bearing to R UE to facilitate muscle firing. After therapy, pt sitting in w/c with family present in the [facility] area. Gave family [employer] for information. OT Short Term Goals Short Term Goals Time Frame: Jan 29, 2017 Eating(FIM): 5 Grooming(FIM): 5 Bathing(FIM): 4 Upper Body Dressing(FIM): 4 Lower Body Dressing(FIM): 4 Toileting(FIM): 4 Transfers (B,C,W/C) (FIM): 4 (met) Toilet/Commode Transfer(FIM): 4 Shower Transfer(FIM): 4 Additional Short Term Goals: 1-Demonstrate ADL Tasks, 2-Verbalize Understanding , 3-ImproveStrength/Delmy 1=Demonstrate adherence to instructed precautions during ADL tasks. 2=Patient will verbalize/demonstrate understanding of assistive devices/ modifications for ADL. 3=Patient will improve strength/tolerance for activity to enable patient to perform ADL's. OT Group Home Goals Group Home Goals Time Frame: Feb 12, 2017 Eating (FIM): 6 (met-3/20) Eating (QC): 6 (met-3/20) Groomin (met-3/20) Oral Hygiene (QC): 6 (met-3/20) Bathing(FIM): 5 (met-3/20) Shower/Bathe Self (QC): 5 (met-3/20) Upper Body Dressing(FIM): 6 (not met) Upper Body Dressing (QC): 6 (not met) Lower Body Dressing(FIM): 6 (not met) Lower Body Dressing (QC): 6 (not met) On/Off Footwear (QC): 6 (not met) Toileting(FIM): 6 (not met) Toileting Hygiene (QC): 6 (not met) Transfers (B,C,W/C) (FIM): 6 (not met) Toilet/Commode Transfer(FIM): 6 (not met) Toilet/Commode Transfer (QC): 6 (not met) Shower Transfer(FIM): 6 (not met) Additional Goals: 1-Demonstrate ADL Tasks, 2-Verbalize Understanding, 3- ImproveStrength/Delmy 1=Demonstrate adherence to instructed precautions during ADL tasks. 2=Patient will verbalize/demonstrate understanding of assistive devices/ modifications for ADL. 3=Patient will improve strength/tolerance for activity to enable patient to perform ADL's. OT Education/Plan Discharge Recommendations Plan/Recommendations: Continue POC Treatment Plan/Plan of Care Patient would benefit from OT for education, treatment and training to promote independence in ADL's, mobility, safety and/or upper extremity function for ADL' s. Plan of Care: ADL Retraining, Caregiver Training, Cognitive Retraining, Functional Mobility, Group Exercise/Act as Ind, UE Funct Exercise/Act Treatment Duration: Feb 12, 2017 Visits Per Week: 10-12 Minutes/Day (M-F): 60-90 Minutes/Day (Sat/Gonzalez): prn Agreement: Yes Rehab Potential: Good Time/GCodes Start Time: 08:00 Stop Time: 09:15 Total Time Billed (hr/min): 75 Billed Treatment Time 1 visit-ADL 4 (60 min) FA 1 (15 min) CHULA NGUYỄN Feb 14, 2017 09:23
--- NOTE | 2017-02-14 10:28 | Physical Therapy Daily Note ---
PT Daily Note-Current Subjective Family present and agreeable to PT. Reports they went home over the weekend and did well. Report that he had some difficulty walking in his home on carpet and over thresholds. Pain Numeric Pain Scale: 0-No Pain Location: No Pain Reported Mental Status Patient Orientation: Person, Place, Time, Situation still some word finding difficulties. Transfers Functional [place] Measure 0=Not Assessed/NA 4=Minimal Assistance 1=Total Assistance 5=Supervision or Setup 2=Maximal Assistance 6=Modified [place] 3=Moderate Assistance 7=Complete IndependenceIRFPAI Quality Coding Scale 6 Independent with activity with or without an assistive device 5 Patient requires set up or clean up by helper. Patient completes activity by themselves 4 Supervision or touching assist (CGA). [place] provide cues , steadying assist 3 The helper provides less than half the effort to complete the activity 2 The helper provides more than half the effort to complete the activity 1 Dependent. The helper does all the effort to complete an activity 7 Patient refused to complete or attempt activity 9 The patient did not perform the activity before the current illness or injury 88 Not attempted due to Medical conditions or safety concerns Transfers (B, C, W/C) (FIM): 5 Roll Left to Right (QC): 6 Supine to/from Sit: 6 Sit to/from Stand: 5 (SBA for safety) Sit to Lying (QC): 6 Sit to Stand (QC): 5 (SBA for safety) Chair/Sai-ur-Blegi Xfer(QC): 5 Bed to/from Chair: 5 Car Transfer (QC): 4 (per family report upon going home yesterday) Family training on cueing pt for safety and assisting with transfers as needed. Sit to from stand transfers as well as bed mobility was addressed. Gait Training Does the Patient Walk?: Yes Gait (FIM): 4 (CGA for safety but did not need any physical assist. ) Distance (FIM): 3=150 ft Walk 10 feet (QC): 4 Walk 50 ft with 2 Turns(QC): 4 Walk 150 ft (QC): 5 Walking 10ft/uneven surface-QC: 4 Gait Level of Assist: 4 (CGA for safety) Gait Assistive Device: Cane Large Base Quad Family training in walking and transfer with gait belt and positioning to assist the most safely. Worked on how to manage the pt in the event of LOB or safety concerns. Education on hand placement and body placement for most effective help. Training on how to use/apply RAQUEL wrap to assist with DF for gait; using RAQUEL bandage until he receives a custom AFO. Wheelchair Training Does the Pt Use a Wheelchair?: Yes Wheelchair (FIM): 6 Wheel 50 ft with 2 turns (QC): 6 Wheel 150 ft (QC): 6 Type of Wheelchair: Manual Pt is mod indep with wheelchair mobility and manages safely. Stair Training Stair Training: Handrails/: 1 handrail Stairs (FIM): 4 #of Steps: 12 1 Step (curb) (QC): 4 4 Steps (QC): 4 12 Steps (QC): 4 Stairs: Pattern: Step to Stair training with family to address positioning of family and ways to reduce the risk of falls. Balance Picking up an Object (QC): 88 (unsafe to attempt due to balance deficits.) Treatments Family training on all aspects of functional mobility, safe positioning of family and education on safety and how to cue and manage th patient. Also discussed follow up care recommending [facility] PT initially. Discussed with family his independence level at home. Assessment Current Status: Excellent Progress Pt making excellent progress and is ready for discharge home with family support. Recommend [facility] PT to follow for safety assessment and adaption to his home environment. Recommend custom fit AFO for noted Foot drop with slight DF placement to reduce the amount of knee hyperextension with gait. Pt requires AFO due to poor toe clearance with swing through on gait and incidences of knee hyperextension during gait, requiring a slight DF placement of the AFO. Pt also in need of quad cane for ambulation assist but also still heavily requires wheelchair for mod indep mobility. Pt is currently CGA with use of cane and mod indep with wheelchair. Quad cane is necessary for ambulation and progression of gait with goal to be mod indep; however he is not mod indep with gait; thus a wheelchair is indicated for his indep in his home and safe mobility to get from room to room. Family demonstrates good understanding of transfer and gait training and voiced that they felt safe with him. Family in agreeance with recommended [facility] PT to address needs at home due to significant functional mobility changes and safety concerns since the CVA. Pt will have difficulty initially coming and going from his home due to need for wheelchair for long distance mobility, management of steps in enter/exit home an will need assist to get in/out of his home at this time. PT Short Term Goals Short Term Goals Time Frame: Feb 05, 2017 Transfers (B,C,W/C) (FIM): 4 (met) Gait (FIM): 4 (met) Distance (FIM): 3=150 ft Gait Assistive Device: Cane Large Base Quad Wheelchair Distance: 80' Stairs (FIM): 2 (met) # of Steps: 4 Stairs Level of Assist: 4 PT Senior Care Goals Oncology Nurse Navigator Goals PT Oncology Nurse Navigator Goals Time Frame: Feb 19, 2017 Transfers (B,C,W/C) (FIM): 6 (nmet; SBA with sit to stand) Sit to Lying (QC): 6 (met) Lying-Sitting on Side/Bed(QC): 6 (met) Sit to Stand (QC): 6 (unmet; SBA=5) Rollin Roll Left to Right (QC): 6 (met) Chair/Bmq-un-Efrok Xfer(QC): 6 (unmet; CGA=5) Car Transfer (QC): 6 Does the Patient Walk: Yes Gait (FIM): 5 (household; CGA--scored a 5) Gait distance (FIM): 3=318-34 ft Distance: 50 ft household Walk 10 feet (QC): 5 (unmet, scored a 4) Walk 10ft-Uneven Surface(QC): 4 (unmet; scored a 4) Walk 50ft with 2 Turns (QC): 5 (unmet, scored a 4) Walk 150 ft (QC): 4 (asssit with this, CGA, scored a 4) Gait Assistive Device: Cane Large Base Quad Does the Pt use WC or Scooter?: Yes Wheelchair (FIM): 6 (met) Wheelchair distance (FIM): 3=150 ft Wheel 50 feet with 2 turns (QC: 6 (met) Stairs (FIM): 5 (household;) # of Steps: 8 1 Step (curb) (QC): 5 (unmet, scored a 4) 4 Steps (QC): 5 (unmet; scored a 4) 12 Steps (QC): 5 (unmet; scored a 4) Stairs Level Of Assist: 6 Picking up an Object (QC): 4 (88; unsafe to attempt) PT Plan Problem List Problem List: Activity Tolerance, Functional Strength, Safety, Balance, Gait, Transfer, Bed Mobility Treatment/Plan Treatment Plan: Continue Plan of Care (vs dc today) Treatment Plan: Bed Mobility, Education, Functional Activity Delmy, Functional Strength, Group Therapy, Gait, Safety, Therapeutic Exercise, Transfers Treatment Duration: Feb 19, 2017 Visits Per Week: 10-*15 Minutes/Day (M-F): 60-90 Minutes/Day (Sat/Gonzalez): prn Safety Risks/Education Patient Education: Gait Training, Transfer Techniques, Steps, Instructions to Caregiver, Safety Issues Teaching Recipient: Patient, Family Teaching Methods: Demonstration, Discussion Response to Teaching: Verbalize Understanding, Return Demonstration Family training; pt successful with hands on techniques. Discharge Recommendations Therapy D/C Recommendations: Physical Therapy Home Care Equpiment Recommendations-D/C: Quad Cane, Manual Wheelchair Time/GCodes Time In: 915 Time Out: 1015 Total Billed Treatment Time: 60 Total Billed Treatment visit FA 60 CHULA MULLEN PT Feb 14, 2017 10:27
--- NOTE | 2017-02-14 11:53 | Speech Therapy Daily Note ---
Speech Daily Progress Note Subjective The patient was seated upright in wheelchair upon entrance. The patient's was present at bedside. The patient greeted the clinician appropriately and agreed to participate in the language therapy session on this date. Objective The Koby Cognitive Assessment was completed for a second time to evaluate for improvement. The results are as follows: - Memory: The patient was able to recall five of five single words immediately and five of five single words following a five minute delay and with a provided a category cue. - Attention: The patient was able to repeat five digits forward and three digits in backwards order. Additionally, the patient displayed accuracy with serial seven subtraction and identification of a specific letter from a string of letters. - Language: thee patient was able to repeat short phrases and find common similarities between two items. The patient demonstrated moderate difficulty with word finding. - Orientation: The patient was oriented to date, month, year, day, place, and city. Word-Finding: As the patient continues to demonstrate difficulty with word- finding, word-finding activities were completed following the MoCA. The patient was asked to provide ten words associated with a specific word the clinician provided. The patient demonstrated moderate difficulty with this task, displaying frequent halts and pauses and requiring moderate verbal cueing from the clinician for accuracy. Additionally, the patient was asked to provide antonyms for specific words. The patient demonstrated moderate difficulty with this task, requiring moderate verbal cueing and displaying 70% accuracy. Assessment Assessment Current Status: Good Progress Treatment Plan Continue Plan of Care Communication Comprehension: 5 Expression: 4 Social Cognition Social Interaction: 5 Problem Solvin Memory: 4 Speech Short Term Goals Short Term Goals Short Term Goals 1. The patient will demonstrated 80% accuracy throughout structured word- finding tasks, independently. 2. The patient will recall and demonstrate two functional memory strategies for use at home, independently. Time Frame-STG: Two Weeks Speech Radiology Rn Goals Penitentiary Goals 1. The patient will demonstrated improved expressive communication and cognitive skills for increased function and safety with ADL's. Time Frame: Four Weeks Speech-Plan Treatment Plan Speech Therapy Treatment Plan: Continue Plan of Care Continue skilled speech therapy to target functional word-finding and improved expressive communication. Treatment Duration: Feb 21, 2017 # of days/week Four to five. Visits Per Week: Four to five. Minutes/Day (M-F): 30 Rehab Potential: Good Safety Risks/Education Teaching Recipient: Patient Teaching Methods: Discussion Response to Teaching: Verbalize Understanding, Return Demonstration Education Topics Provided: Word-Finding Strategies Time Speech Therapy Time In: 10:15 Speech Therapy Time Out: 11:15 Total Billed Time: 60 Billed Treatment Time 1, FRANCOIS LEWIS Feb 14, 2017 11:53
--- NOTE | 2017-02-14 14:42 | Physical Therapy Daily Note ---
PT Daily Note-Current Subjective Disappointed that he is having trouble getting his DME. Frustrated with insurance barriers. Agrees to PT this pm Transfers Functional [place] Measure 0=Not Assessed/NA 4=Minimal Assistance 1=Total Assistance 5=Supervision or Setup 2=Maximal Assistance 6=Modified [place] 3=Moderate Assistance 7=Complete IndependenceIRFPAI Quality Coding Scale 6 Independent with activity with or without an assistive device 5 Patient requires set up or clean up by helper. Patient completes activity by themselves 4 Supervision or touching assist (CGA). [place] provide cues , steadying assist 3 The helper provides less than half the effort to complete the activity 2 The helper provides more than half the effort to complete the activity 1 Dependent. The helper does all the effort to complete an activity 7 Patient refused to complete or attempt activity 9 The patient did not perform the activity before the current illness or injury 88 Not attempted due to Medical conditions or safety concerns Treatments SPT performed x 4 reps with QC with CGA. Gait outdoors on cement with QC with CGA x 150 ft. Spent time educating and discussing safety with ambulation on varied surfaces. Assessment Current Status: Good Progress Progressing. PT Short Term Goals Short Term Goals Time Frame: Feb 05, 2017 Transfers (B,C,W/C) (FIM): 4 (met) Gait (FIM): 4 (met) Distance (FIM): 3=150 ft Gait Assistive Device: Cane Large Base Quad Wheelchair Distance: 80' Stairs (FIM): 2 (met) # of Steps: 4 Stairs Level of Assist: 4 PT Financial Aid Administrator Goals Senior Care Goals PT Senior Care Goals Time Frame: Feb 19, 2017 Transfers (B,C,W/C) (FIM): 6 Sit to Lying (QC): 6 Lying-Sitting on Side/Bed(QC): 6 Sit to Stand (QC): 6 Rollin Roll Left to Right (QC): 6 Chair/Soo-jc-Nmovx Xfer(QC): 6 Car Transfer (QC): 6 Does the Patient Walk: Yes Gait (FIM): 5 Gait distance (FIM): 3=884-37 ft Distance: 50 ft household Walk 10 feet (QC): 5 Walk 10ft-Uneven Surface(QC): 4 Walk 50ft with 2 Turns (QC): 5 Walk 150 ft (QC): 4 Gait Assistive Device: Cane Large Base Quad Does the Pt use WC or Scooter?: Yes Wheelchair (FIM): 6 Wheelchair distance (FIM): 3=150 ft Wheel 50 feet with 2 turns (QC: 6 Stairs (FIM): 5 # of Steps: 8 1 Step (curb) (QC): 5 4 Steps (QC): 5 12 Steps (QC): 5 Stairs Level Of Assist: 6 Picking up an Object (QC): 4 PT Plan Problem List Problem List: Activity Tolerance, Functional Strength Treatment/Plan Treatment Plan: Continue Plan of Care Treatment Plan: Bed Mobility, Education, Functional Activity Delmy, Functional Strength, Group Therapy, Gait, Safety, Therapeutic Exercise, Transfers Treatment Duration: Feb 19, 2017 Visits Per Week: 10-*15 Minutes/Day (M-F): 60-90 Minutes/Day (Sat/Gonzalez): prn Discharge Recommendations Plan Plan DC tomorrow. Time/GCodes Time In: 1345 Time Out: 1415 Total Billed Treatment Time: 30 Total Billed Treatment visit GT 30 CHULA MULLEN PT Feb 14, 2017 14:42
[2017-02-14 14:55] VITALS: BP 154/81
[2017-02-14 17:56] VITALS: BP 166/83
--- NOTE | 2017-02-14 19:05 | PM & R (SOAP) Progress Note ---
Subjective Subjective/Events-last exam Patient was seen in his room this evening Patient CGA for transfers and gait.Discussed case with RN Patient was set for discharge tomorrow to home with family but patients insurance wants his PCP to approve his DME.Will f/u with SW in AM re update on this Objective Exam Last Set of Vital Signs Vital Signs Date Time Temp Pulse Resp B/P Pulse Ox O2 Delivery O2 Flow Rate FiO2 02/14/17 17:56 97.6 71 18 166/83 97 Room Air Capillary Refill : I&O Intake and Output 02/14/17 00:00 Intake Total 930 ml Output Total 1125 ml Balance -195 ml Intake Oral 930 ml Output Urine Total 1125 ml # Bowel Movements 1 General: Alert, Oriented X3, Cooperative, No Acute Distress HEENT: Atraumatic, PERRLA, EOMI, Mucous Memb Moist/[place], Other (rt labila droop ) Neck: Supple, No JVD Lungs: Clear to Auscultation Heart: Regular Rate Abdomen: Normal Bowel Sounds, Soft, No Tenderness Extremities: No Edema Neuro: Other (rt HP and mild cognitive impairment and word finding difficulty) Results Lab Laboratory Tests 02/11/17 19:59: Glucometer 154H 02/12/17 05:04: Glucometer 116H 02/12/17 11:03: Glucometer 118H 02/12/17 16:09: Glucometer 150H 02/12/17 20:23: Glucometer 133H 02/13/17 06:53: Glucometer 133H 02/13/17 17:08: Glucometer 162H 02/13/17 20:52: Glucometer 159H 02/14/17 05:07: Glucometer 131H 02/14/17 11:28: Glucometer 117H 02/14/17 16:35: Glucometer 141H Assessment/Plan Assessment Left CVA with RT HP HTN better controlled DM controlled -Diabetic education ordered Constipation treated Plan Continue PT/OT/ST Recheck Labs-done HTN meds adjusted earlier during stay with better control Constipation treated Appreciate Therapy notes and current labs Custom AFO ordered for patient F/U with SW in AM re DME Update and discharge details DANIKA BRADLEY MD Feb 14, 2017 19:05
[2017-02-14] MEDS: inSUlin DETERMIR 1 UNIT/0.01 ML (LEVEMIR) CHARGE PER UNIT SQ SCH (20:01)
[2017-02-14] MEDS: ATORVASTATIN 40 MG (LIPITOR) TABLET PO SCH (20:01)
[2017-02-15 05:42] VITALS: BP 158/80
[2017-02-15] MEDS: inSUlin ASPART (NovoLOG) 1 UNIT/0.01 ML (CHARGE PER UNIT) SC SCH ×2 (05:51→11:00)
[2017-02-15] MEDS: hydrALAZINE (APRESOLINE) 25 MG TAB PO SCH ×2 (06:03→14:46)
[2017-02-15] MEDS: SENNA W/DOCUSATE (SENOKOT S) TABLET PO SCH (08:08)
[2017-02-15] MEDS: ASPIRIN 325 MG (5 GR) TABLET PO SCH (08:09)
[2017-02-15] MEDS: HYDROCHLOROTHIAZIDE 25 MG (HCTZ) TAB PO SCH (08:09)
[2017-02-15] MEDS: meTOprolol TARTRATE 25 MG (LOPRESSOR) TABLET PO SCH (08:09)
[2017-02-15] MEDS: amLODIPine 5 MG (NORVASC) TAB PO SCH (08:09)
--- NOTE | 2017-02-15 08:43 | Progress Note (SOAP) ---
Subjective Subjective/Events-last exam CVA. Stroke. Patient be discharged today. Patient has improved much. Patient working progress and has to have more PT and OT Objective Exam Vital Signs Date Time Temp Pulse Resp B/P Pulse Ox O2 Delivery O2 Flow Rate FiO2 02/15/17 05:42 98.4 60 18 158/80 96 Room Air 02/14/17 20:00 Room Air 02/14/17 17:56 97.6 71 18 166/83 97 Room Air 02/14/17 14:55 57 154/81 02/14/17 09:20 Room Air I & O 02/15/17 07:00 Intake Total 845 ml Output Total 500 ml Balance 345 ml Capillary Refill : General Appearance: No Apparent Distress WD/WN Results Lab Laboratory Tests 02/14/17 11:28: Glucometer 117H 02/14/17 16:35: Glucometer 141H 02/14/17 21:27: Glucometer 129H 02/15/17 05:28: Glucometer 116H Assessment/Plan Assessment/Plan Assess & Plan/Chief Complaint CVA on right. Hypertension. Diabetes. Patient when asked questions has a slow thought process. Patient unable to steel pickler right hand. Patient does move his right leg. . 01/24/17. CVA on right. Hypertension. Diabetes. Patient is improving. Patient positive. . 01/25/17. CVA on right. Hypertension. HCTZ added. Patient moving right extremities better. Patient improving. . 01/26/17 CVA Hypertension Patient moving left extremities better. Patient improving. Blood pressure better today than yesterday. . 3/e last . CVA on right. Hypertension. Diabetes. Control. Patient talking better. . 01/28/17. CVA on right. Hypertension. Diabetes. Patient continues to improve slowly. . 01/31/17. CVA on right. Hypertension better. Sugars good. Positive to do PT and OT.. . 02/01/17. CVA in right. Hypertension doing better. Patient's left leg doing better. Slow process with left hand. . 02/02/17. CVA on right. Hypertension.. Patient moving toes in right foot. Patient still not moving right hand. . 02/03/17. CVA on right. Hypertension. Blood pressure better. Patient now starting to move the right hand. Right leg getting stronger. Patient in the right direction. . 3/10/17. CVA in right. Hypertension. Patient working hard. Patient progressing. . 02/07/17 Patient working hard. CVA. Hypertension. Patient moving right leg better. Patient struggling with right upper extremity. . 02/08/17. CVA on right. Hypertension. Diabetes. Patient working hard with PT and OT. . 02/09/17. CVA on right. Hypertension. Diabetes. Patient working hard at a stroke. . 01/26 05/14. CVA on right hypertension. Diabetes. Patient able to walk today without the brace on his right leg. . 02/11/17 CVA on right. Hypertension. Diabetes. Patient had a rough night and unable to sleep last nightarea . CVA on right. Hypertension. Diabetes. Patient slowly improving. . 02/15/17 patient has improved since he's been here Patient working progress. Patient needs more PT and OT at home. CVA. Hypertension Clinical Quality Measures DVT/VTE Risk/Contraindication: Risk Factor Score Per Nursin RFS Level Per Nursing on Admit: 4+=Very High BENJY SANTANA DO Feb 15, 2017 08:43
--- NOTE | 2017-02-15 09:03 | PM & R (SOAP) Progress Note ---
Subjective Subjective/Events-last exam Patient was seen in his room this AM Has progressed well Strength on hemiparetic side gradually improving.Discussed case with SW Discharge remains set for today Because of patients insurance he will see a Physician in [facility] despite the fact that he lives in [facility]-He is retired [place]. Objective Exam Last Set of Vital Signs Vital Signs Date Time Temp Pulse Resp B/P Pulse Ox O2 Delivery O2 Flow Rate FiO2 02/15/17 05:42 98.4 60 18 158/80 96 Room Air Capillary Refill : I&O Intake and Output 02/14/17 23:59 Intake Total 895 ml Output Total 500 ml Balance 395 ml Intake Oral 895 ml Output Urine Total 500 ml # Voids 5 # Bowel Movements 1 General: Alert, Oriented X3, Cooperative, No Acute Distress HEENT: Atraumatic, PERRLA, EOMI, Mucous Memb Moist/[place], Other (rt labila droop ) Neck: Supple, No JVD Lungs: Clear to Auscultation Heart: Regular Rate Abdomen: Normal Bowel Sounds, Soft, No Tenderness Extremities: No Edema Neuro: Other (rt HP and mild cognitive impairment and word finding difficulty) Results Lab Laboratory Tests 02/12/17 11:03: Glucometer 118H 02/12/17 16:09: Glucometer 150H 02/12/17 20:23: Glucometer 133H 02/13/17 06:53: Glucometer 133H 02/13/17 17:08: Glucometer 162H 02/13/17 20:52: Glucometer 159H 02/14/17 05:07: Glucometer 131H 02/14/17 11:28: Glucometer 117H 02/14/17 16:35: Glucometer 141H 02/14/17 21:27: Glucometer 129H 02/15/17 05:28: Glucometer 116H Assessment/Plan Assessment Left CVA with RT HP with strength on RT generally in the 3+/5 in Lower Limb and 2+/5 to 3/5 in Upper limb HTN better controlled DM controlled -Diabetic education ordered Constipation treated Plan Discharge patient to home with family and HHC F/U with PCP in [facility] See orders DANIKA BRADLEY MD Feb 15, 2017 09:03
[2017-02-15] MEDS ORDERED: INSU100V5 SQ (09:11)
[2017-02-15] MEDS ORDERED: IBUP-1773 PO (09:11)
[2017-02-15] MEDS ORDERED: METO-333 PO (09:11)
[2017-02-15] MEDS ORDERED: ASPI-808 PO (09:11)
[2017-02-15] MEDS ORDERED: HYDR-3923 PO (09:11)
[2017-02-15] MEDS ORDERED: ATOR40TA PO (09:11)
[2017-02-15] MEDS ORDERED: SENN-20 PO (09:11)
[2017-02-15] MEDS ORDERED: HYDR25TA4 PO (09:11)
[2017-02-15] MEDS ORDERED: AMLO5TAB2 PO (09:11)
--- NOTE | 2017-02-15 09:41 | Occupational Ther Daily Note ---
OT Current Status-Daily Note Subjective Pt alert, lying in bed. Pt agreed to therapy. Probable discharge today. No c/ o pain. Mental Status/Objective Functional [place] Measure 0=Not Assessed/NA 4=Minimal Assistance 1=Total Assistance 5=Supervision or Setup 2=Maximal Assistance 6=Modified [place] 3=Moderate Assistance 7=Complete [place] ADL-Treatment Pt maneuvered w/c to toilet then transferred with grabbar to toilet with close SBA. Pt then was able to complete toileting using grabbars to stand then leaned head against wall for balance then cleansed self with close SBA. Pt transferred to w/c with close SBA. After set up, pt was able to dress upper body by self then dressed lower body with close SBA when standing to hike pants over hips. Dons/doffs socks by self. Grooming sitting at sink by self. Maneuvered w/c from room to therapy gym by self. Functional [place] Measure 0=Not Assessed/NA 4=Minimal Assistance 1=Total Assistance 5=Supervision or Setup 2=Maximal Assistance 6=Modified [place] 3=Moderate Assistance 7=Complete IndependenceIRFPAI Quality Coding Scale 6 Independent with activity with or without an assistive device 5 Patient requires set up or clean up by helper. Patient completes activity by themselves 4 Supervision or touching assist (CGA). [place] provide cues , steadying assist 3 The helper provides less than half the effort to complete the activity 2 The helper provides more than half the effort to complete the activity 1 Dependent. The helper does all the effort to complete an activity 7 Patient refused to complete or attempt activity 9 The patient did not perform the activity before the current illness or injury 88 Not attempted due to Medical conditions or safety concerns Grooming (FIM): 6 Oral Hygiene (QC): 6 Upper Body (FIM): 5 Upper Body Dressing (QC): 5 Lower Body Dressing (FIM): 5 Lower Body Dressing (QC): 4 On/Off Footwear (QC): 5 Toileting (FIM): 5 Toileting Hygiene (QC): 4 Transfers (B, C, W/C) (FIM): 5 Toilet/Commode Transfer (FIM): 5 Toilet Transfer (QC): 4 Other Treatment Pt complete AAROM with R UE using arm skate board for internal/external horizontal shldr movement, protraction/retraction of scapula/R UE and finger flexion/extension. UE dowel stormy exercises with R hand wrapped for AAROM. Wt bearing through R elbow resting on arm rest then on knees. After therapy, pt left in care of [employer] CRM DEVELOPER. All needs met in room. OT Short Term Goals Short Term Goals Time Frame: Jan 29, 2017 Eating(FIM): 5 Grooming(FIM): 5 Bathing(FIM): 4 Upper Body Dressing(FIM): 4 Lower Body Dressing(FIM): 4 Toileting(FIM): 4 Transfers (B,C,W/C) (FIM): 4 (met) Toilet/Commode Transfer(FIM): 4 Shower Transfer(FIM): 4 Additional Short Term Goals: 1-Demonstrate ADL Tasks, 2-Verbalize Understanding , 3-ImproveStrength/Delmy 1=Demonstrate adherence to instructed precautions during ADL tasks. 2=Patient will verbalize/demonstrate understanding of assistive devices/ modifications for ADL. 3=Patient will improve strength/tolerance for activity to enable patient to perform ADL's. OT Strainer Tender Goals [place] Goals Time Frame: Feb 12, 2017 Eating (FIM): 6 (met-3/20) Eating (QC): 6 (met-3/20) Groomin (met-3/20) Oral Hygiene (QC): 6 (met-3/20) Bathing(FIM): 5 (met-3/20) Shower/Bathe Self (QC): 5 (met-3/20) Upper Body Dressing(FIM): 6 (not met) Upper Body Dressing (QC): 6 (not met) Lower Body Dressing(FIM): 6 (not met) Lower Body Dressing (QC): 6 (not met) On/Off Footwear (QC): 6 (not met) Toileting(FIM): 6 (not met) Toileting Hygiene (QC): 6 (not met) Transfers (B,C,W/C) (FIM): 6 (not met) Toilet/Commode Transfer(FIM): 6 (not met) Toilet/Commode Transfer (QC): 6 (not met) Shower Transfer(FIM): 6 (not met) Additional Goals: 1-Demonstrate ADL Tasks, 2-Verbalize Understanding, 3- ImproveStrength/Delmy 1=Demonstrate adherence to instructed precautions during ADL tasks. 2=Patient will verbalize/demonstrate understanding of assistive devices/ modifications for ADL. 3=Patient will improve strength/tolerance for activity to enable patient to perform ADL's. OT Education/Plan Discharge Recommendations Plan/Recommendations: Continue POC Treatment Plan/Plan of Care Patient would benefit from OT for education, treatment and training to promote independence in ADL's, mobility, safety and/or upper extremity function for ADL' s. Plan of Care: ADL Retraining, Caregiver Training, Cognitive Retraining, Functional Mobility, Group Exercise/Act as Ind, UE Funct Exercise/Act Treatment Duration: Feb 12, 2017 Visits Per Week: 10-12 Minutes/Day (M-F): 60-90 Minutes/Day (Sat/Gonzalez): prn Agreement: Yes Rehab Potential: Good Time/GCodes Start Time: 08:15 Stop Time: 09:15 Total Time Billed (hr/min): 60 Billed Treatment Time 1 visit-ADL 3 (45 min) EX 1 (15 min) CHULA NGUYỄN Feb 15, 2017 09:41
--- NOTE | 2017-02-15 12:01 | Physical Therapy Daily Note ---
PT Daily Note-Current Subjective Agreeable to PT. Still plans to discharge home today. Pain Numeric Pain Scale: 0-No Pain Location: No Pain Reported Mental Status Patient Orientation: Person, Place, Time, Situation Transfers Functional [place] Measure 0=Not Assessed/NA 4=Minimal Assistance 1=Total Assistance 5=Supervision or Setup 2=Maximal Assistance 6=Modified [place] 3=Moderate Assistance 7=Complete IndependenceIRFPAI Quality Coding Scale 6 Independent with activity with or without an assistive device 5 Patient requires set up or clean up by helper. Patient completes activity by themselves 4 Supervision or touching assist (CGA). [place] provide cues , steadying assist 3 The helper provides less than half the effort to complete the activity 2 The helper provides more than half the effort to complete the activity 1 Dependent. The helper does all the effort to complete an activity 7 Patient refused to complete or attempt activity 9 The patient did not perform the activity before the current illness or injury 88 Not attempted due to Medical conditions or safety concerns Treatments Worked on functional gait training with right foot wrapped with RAQUEL to provide DF support and use of QC. Pt ambulated x 150 ft, 50 ft, 125 ft and 75 ft with QC with CGA. Pt ambulated across a simulated threshold surface x 4 with min assist to complete successfully and across varied surface texture 10 ft x 4 with QC with min assist. Pt in room in chair post treatment with needs. met. Assessment Current Status: Good Progress Progressing with continued progress expected with continued care at home. Pt to discharge home today and recommend [facility] PT to follow. Pt made good progress throughout his stay and is motivated to continue. PT Short Term Goals Short Term Goals Time Frame: Feb 05, 2017 Transfers (B,C,W/C) (FIM): 4 (met) Gait (FIM): 4 (met) Distance (FIM): 3=150 ft Gait Assistive Device: Cane Large Base Quad Wheelchair Distance: 80' Stairs (FIM): 2 (met) # of Steps: 4 Stairs Level of Assist: 4 PT Intermediate Goals Intermediate Goals PT Intermediate Goals Time Frame: Feb 19, 2017 Transfers (B,C,W/C) (FIM): 6 Sit to Lying (QC): 6 Lying-Sitting on Side/Bed(QC): 6 Sit to Stand (QC): 6 Rollin Roll Left to Right (QC): 6 Chair/Djg-md-Hkbzg Xfer(QC): 6 Car Transfer (QC): 6 Does the Patient Walk: Yes Gait (FIM): 5 Gait distance (FIM): 4=482-99 ft Distance: 50 ft household Walk 10 feet (QC): 5 Walk 10ft-Uneven Surface(QC): 4 Walk 50ft with 2 Turns (QC): 5 Walk 150 ft (QC): 4 Gait Assistive Device: Cane Large Base Quad Does the Pt use WC or Scooter?: Yes Wheelchair (FIM): 6 Wheelchair distance (FIM): 3=150 ft Wheel 50 feet with 2 turns (QC: 6 Stairs (FIM): 5 # of Steps: 8 1 Step (curb) (QC): 5 4 Steps (QC): 5 12 Steps (QC): 5 Stairs Level Of Assist: 6 Picking up an Object (QC): 4 PT Plan Treatment/Plan Treatment Plan: Discontinue PT Treatment Plan: Bed Mobility, Education, Functional Activity Delmy, Functional Strength, Group Therapy, Gait, Safety, Therapeutic Exercise, Transfers Treatment Duration: Feb 19, 2017 Visits Per Week: 10-*15 Minutes/Day (M-F): 60-90 Minutes/Day (Sat/Gonzalez): prn Discharge Recommendations Plan Pt to discharge today. Therapy D/C Recommendations: Physical Therapy Home Care Time/GCodes Time In: 950 Time Out: 1035 Total Billed Treatment Time: 45 Total Billed Treatment vsiit GT 45 CHULA MULLEN PT Feb 15, 2017 12:01
--- NOTE | 2017-02-15 12:07 | Therapy Team Discharge Summary ---
Therapy Discharge Summary Discharge Recommendations Date of Discharge Therapy D/C Recommendations: Physical Therapy Home Care Physical Therapy This patient has been seen for skilled PT services post CVA. Upon admission, he required assist with all functional transfers, balance and was significantly limited in his ability to walk. Treatment has consisted of functional gait, transfers, neuro/balance, functional strength, wheelchair training, safety and family training. He has made good progress, albeit he has not achieved all goal , feel continued progress will come with continued therapy services. Pt has had an extended stay on this unit and feels he is ready to discharge to home with family assisting with care as needed. He appears to have a very supportive family and they did great with the training. Pt has excellent potential to continue to improve with [facility] PT, obtaining AFO and progression of functional mobility. Will dc from this unit at this time. PT Intensive Care Unit Nurse Goals Snf Goals PT Intensive Care Unit Nurse Goals Time Frame: Feb 19, 2017 Transfers (B,C,W/C) (FIM): 6 Roll Left to Right (QC): 6 Sit to Lying (QC): 6 Lying-Sitting on Side/Bed(QC): 6 Sit to Stand (QC): 6 Chair/Fdq-fd-Zkthc Xfer(QC): 6 Car Transfer (QC): 6 Does the Patient Walk: Yes Gait (FIM): 5 Gait distance (FIM): 2=414-85 ft Distance: 50 ft household Walk 10 feet (QC): 5 Walk 10ft-Uneven Surface(QC): 4 Walk 50ft with 2 Turns (QC): 5 Walk 150 ft (QC): 4 Gait Assistive Device: Cane Large Base Quad Does the Pt use WC or Scooter?: Yes Wheelchair (FIM): 6 Wheelchair distance (FIM): 3=150 ft Wheel 50 feet with 2 turns (QC: 6 Stairs (FIM): 5 # of Steps: 8 1 Step (curb) (QC): 5 4 Steps (QC): 5 12 Steps (QC): 5 Stairs Level Of Assist: 6 Picking up an Object (QC): 4 OT Snf Goals Intensive Care Unit Nurse Goals Time Frame: Feb 12, 2017 Eating (FIM): 6 (met-3/20) Eating (QC): 6 (met-3/20) Oral Hygiene (QC): 6 (met-3/20) Grooming(FIM): 6 (met-3/20) Bathing(FIM): 5 (met-02/14) Shower/Bathe Self (QC): 5 (met-02/14) Upper Body Dressing(FIM): 6 (not met) Upper Body Dressing (QC): 6 (not met) Lower Body Dressing(FIM): 6 (not met) Lower Body Dressing (QC): 6 (not met) On/Off Footwear (QC): 6 (not met) Toileting(FIM): 6 (not met) Toileting Hygiene (QC): 6 (not met) Transfers (B,C,W/C) (FIM): 6 (not met) Toilet/Commode Transfer(FIM): 6 (not met) Toilet/Commode Transfer (QC): 6 (not met) Shower Transfer(FIM): 6 (not met) Additional Goals: 1-Demonstrate ADL Tasks, 2-Verbalize Understanding, 3- ImproveStrength/Delmy 1=Demonstrate adherence to instructed precautions during ADL tasks. 2=Patient will verbalize/demonstrate understanding of assistive devices/ modifications for ADL. 3=Patient will improve strength/tolerance for activity to enable patient to perform ADL's. Speech Snf Goals Intensive Care Unit Nurse Goals 1. The patient will demonstrated improved expressive communication and cognitive skills for increased function and safety with ADL's. Time Frame: Four Weeks CHULA MULLEN PT Feb 15, 2017 12:07
--- NOTE | 2017-02-15 12:50 | Speech Therapy Daily Note ---
Speech Daily Progress Note Subjective The patient was seated upright in recliner upon entrance. The patient greeted the clinician and agreed to participate in language therapy on this date. Objective Right Sided Neglect Strategies: The patient's discussed concerns regarding a possible right sided neglect. A right sided neglect has not been noted through ST or OT activities, however, strategies to address this occurrence were demonstrated. Per patient, his eyes have a difficult time adjusting to lighting changes from inside to outside, however, he is able to see his complete visual field. Word-Finding Strategies: The ten basic word-finding strategies (including description, rest, synonyms) were discussed, reviewed, and demonstrated on this date. The patient was able to demonstrate strategies with high accuracy and verbalized comprehension. The patient denied any additional questions or concerns regarding the techniques. Assessment Assessment Current Status: Good Progress Treatment Plan Continue Plan of Care Communication Comprehension: 5 Expression: 4 Social Cognition Social Interaction: 5 Problem Solvin Memory: 4 Speech Short Term Goals Short Term Goals Short Term Goals 1. The patient will demonstrated 80% accuracy throughout structured word- finding tasks, independently. 2. The patient will recall and demonstrate two functional memory strategies for use at home, independently. Time Frame-STG: Two Weeks Speech Assisted Goals Motion Graphics Designer Goals 1. The patient will demonstrated improved expressive communication and cognitive skills for increased function and safety with ADL's. Time Frame: Four Weeks Speech-Plan Treatment Plan Speech Therapy Treatment Plan: Continue Plan of Care Continue skilled speech therapy to target functional word-finding skills. Treatment Duration: Feb 21, 2017 # of days/week Four to five. Visits Per Week: Four to five. Minutes/Day (M-F): 30 Rehab Potential: Good Safety Risks/Education Teaching Recipient: Patient Teaching Methods: Demonstration, Handout, Discussion Response to Teaching: Verbalize Understanding, Return Demonstration Education Topics Provided: Word-Finding Strategies, Right Sided Neglect Strategies Time Speech Therapy Time In: 09:25 Speech Therapy Time Out: 09:40 Total Billed Time: 15 Billed Treatment Time 1, FRANCOIS LEWIS Feb 15, 2017 12:50
[2017-02-15 14:40] VITALS: BP 158/80
--- NOTE | 2017-02-16 09:48 | Therapy Team Discharge Summary ---
Therapy Discharge Summary Discharge Recommendations Date of Discharge Feb 15, 2017 at 14:40 Therapy D/C Recommendations: Physical Therapy Home Care Speech-Language Pathology The patient was admitted to [facility] following a CVA. Upon admission, the patient demonstrated moderate expressive aphasia. Skilled speech therapy focused on word-finding strategies and functional problem solving. The patient met all goals placed by ST at arrival. Upon discharge, home health speech services are recommended by this clinician to continue the patient's positive progression and improvement. The patient will be discharged from inpatient acute rehabilitation speech services at this time. PT Metal Window Screen Assembler Goals Custodial Goals PT Metal Window Screen Assembler Goals Time Frame: Feb 19, 2017 Transfers (B,C,W/C) (FIM): 6 Roll Left to Right (QC): 6 Sit to Lying (QC): 6 Lying-Sitting on Side/Bed(QC): 6 Sit to Stand (QC): 6 Chair/Bfu-zr-Sbrda Xfer(QC): 6 Car Transfer (QC): 6 Does the Patient Walk: Yes Gait (FIM): 5 Gait distance (FIM): 7=345-51 ft Distance: 50 ft household Walk 10 feet (QC): 5 Walk 10ft-Uneven Surface(QC): 4 Walk 50ft with 2 Turns (QC): 5 Walk 150 ft (QC): 4 Gait Assistive Device: Cane Large Base Quad Does the Pt use WC or Scooter?: Yes Wheelchair (FIM): 6 Wheelchair distance (FIM): 3=150 ft Wheel 50 feet with 2 turns (QC: 6 Stairs (FIM): 5 # of Steps: 8 1 Step (curb) (QC): 5 4 Steps (QC): 5 12 Steps (QC): 5 Stairs Level Of Assist: 6 Picking up an Object (QC): 4 OT Metal Window Screen Assembler Goals Custodial Goals Time Frame: Feb 12, 2017 Eating (FIM): 6 (met-3/20) Eating (QC): 6 (met-3/20) Oral Hygiene (QC): 6 (met-3/20) Grooming(FIM): 6 (met-3/20) Bathing(FIM): 5 (met-3/20) Shower/Bathe Self (QC): 5 (met-3/20) Upper Body Dressing(FIM): 6 (not met) Upper Body Dressing (QC): 6 (not met) Lower Body Dressing(FIM): 6 (not met) Lower Body Dressing (QC): 6 (not met) On/Off Footwear (QC): 6 (not met) Toileting(FIM): 6 (not met) Toileting Hygiene (QC): 6 (not met) Transfers (B,C,W/C) (FIM): 6 (not met) Toilet/Commode Transfer(FIM): 6 (not met) Toilet/Commode Transfer (QC): 6 (not met) Shower Transfer(FIM): 6 (not met) Additional Goals: 1-Demonstrate ADL Tasks, 2-Verbalize Understanding, 3- ImproveStrength/Delmy 1=Demonstrate adherence to instructed precautions during ADL tasks. 2=Patient will verbalize/demonstrate understanding of assistive devices/ modifications for ADL. 3=Patient will improve strength/tolerance for activity to enable patient to perform ADL's. Speech Custodial Goals Metal Window Screen Assembler Goals 1. The patient will demonstrated improved expressive communication and cognitive skills for increased function and safety with ADL's. Time Frame: Four Weeks Comprehension: 5 (MET) Expression: 4 (MET) Social Interaction: 5 (MET) Problem Solvin (MET) Memory: 4 (MT) FRANCOIS JONES Feb 16, 2017 09:48
--- NOTE | 2017-02-16 13:48 | Therapy Team Discharge Summary ---
Therapy Discharge Summary Discharge Recommendations Date of Discharge Feb 15, 2017 at 14:40 Therapy D/C Recommendations: Physical Therapy Home Care Occupational Therapy Pt admitted to ARU following CVA. On admission pt required max assist for dressing, mod assist for transfers, and SBA for grooming. Skilled OT intervention focused on ADL training, transfers, strengthening, and home safety education. Pt made progress with therapy and by discharge is completing feeding , grooming, and bathing with modified independence and dressing and transfers with SBA. Pt met goals for feeding, grooming, bathing, but did not meet other goals. Pt discharged home with family support. D/c ARU OT at this time. PT Litigation Examiner Goals Litigation Examiner Goals PT Litigation Examiner Goals Time Frame: Feb 19, 2017 Transfers (B,C,W/C) (FIM): 6 Roll Left to Right (QC): 6 Sit to Lying (QC): 6 Lying-Sitting on Side/Bed(QC): 6 Sit to Stand (QC): 6 Chair/Vdg-vf-Jueuz Xfer(QC): 6 Car Transfer (QC): 6 Does the Patient Walk: Yes Gait (FIM): 5 Gait distance (FIM): 8=104-07 ft Distance: 50 ft household Walk 10 feet (QC): 5 Walk 10ft-Uneven Surface(QC): 4 Walk 50ft with 2 Turns (QC): 5 Walk 150 ft (QC): 4 Gait Assistive Device: Cane Large Base Quad Does the Pt use WC or Scooter?: Yes Wheelchair (FIM): 6 Wheelchair distance (FIM): 3=150 ft Wheel 50 feet with 2 turns (QC: 6 Stairs (FIM): 5 # of Steps: 8 1 Step (curb) (QC): 5 4 Steps (QC): 5 12 Steps (QC): 5 Stairs Level Of Assist: 6 Picking up an Object (QC): 4 OT Litigation Examiner Goals Litigation Examiner Goals Time Frame: Feb 12, 2017 Eating (FIM): 6 (met-3/20) Eating (QC): 6 (met-3/20) Oral Hygiene (QC): 6 (met-3/20) Grooming(FIM): 6 (met-3/20) Bathing(FIM): 5 (met-3/20) Shower/Bathe Self (QC): 5 (met-3/20) Upper Body Dressing(FIM): 6 (not met) Upper Body Dressing (QC): 6 (not met) Lower Body Dressing(FIM): 6 (not met) Lower Body Dressing (QC): 6 (not met) On/Off Footwear (QC): 6 (not met) Toileting(FIM): 6 (not met) Toileting Hygiene (QC): 6 (not met) Transfers (B,C,W/C) (FIM): 6 (not met) Toilet/Commode Transfer(FIM): 6 (not met) Toilet/Commode Transfer (QC): 6 (not met) Shower Transfer(FIM): 6 (not met) Comprehension(FIM): 5 (MET) Expression (FIM): 4 (MET) Social Interaction(FIM): 5 (MET) Problem Solving(FIM): 4 (MET) Memory(FIM): 4 (MT) Additional Goals: 1-Demonstrate ADL Tasks, 2-Verbalize Understanding, 3- ImproveStrength/Delmy 1=Demonstrate adherence to instructed precautions during ADL tasks. 2=Patient will verbalize/demonstrate understanding of assistive devices/ modifications for ADL. 3=Patient will improve strength/tolerance for activity to enable patient to perform ADL's. Speech Litigation Examiner Goals Litigation Examiner Goals 1. The patient will demonstrated improved expressive communication and cognitive skills for increased function and safety with ADL's. Time Frame: Four Weeks Comprehension: 5 (MET) Expression: 4 (MET) Social Interaction: 5 (MET) Problem Solvin (MET) Memory: 4 (MT) JOSSIE GALVEZ OT Feb 16, 2017 13:48
--- NOTE | 2017-03-02 14:44 | DISCHARGE SUMMARY ---
DATE OF ADMISSION: 01/21/2017 DATE OF DISCHARGE: 02/15/2017 HISTORY OF PRESENT ILLNESS: The patient is a 61-year-old male known to have hypertension, who developed right arm and right leg weakness about 24 hours prior to presentation to [facility] ER. Blood pressure was elevated, blood glucose was 259. He reported that he did not know that he had diabetes mellitus. His serum creatinine was 1.37. MRI and CT revealed tiny intracerebral bleeding. MRI showed bilateral ischemic changes. The patient states that he had a stroke 11 years ago but had no residual from it and he is not apparently been taking any medications for his hypertension for the past 2 years. He had nonetheless been independent prior to this. He was seen by neurology and managed by hospitalist service as well at [facility] and medically stabilized. He was referred to Inpatient Rehabilitation Unit at [facility]. He lives in [place] with his spouse. He is former retired [employer]. PAST MEDICAL HISTORY: 1. Bladder cancer. 2. Hypertension. 3. CVA. 4. Tonsillectomy. 5. Heart catheterization. 6. Bladder surgery. MEDICAL COURSE: The patient was followed by Dr. Quezada and Dr. Peck while on rehab unit. Medications were adjusted for his blood pressure. Blood pressure showed fairly good control. On 02/15/2017, date of discharge, 158/80, respirations 18, pulse was 60, O2 sat 96% on room air. CBC on 01/25 showed WBC 8.4, hemoglobin and hematocrit 16.2/47, platelet count 168,000. Chemistry showed Accu-Cheks from 02/14 to 02/15 varying between 116 and 141. Chemistry on 01/25 showed chloride elevated at 108 and CO2 at 19, BUN elevated at 29, sodium and potassium within normal limits. Blood glucose was 134, calcium 9.1. The patient had fairly good return of function and speech and overall progressed fairly well. His HDL was low at 30, direct LDL high at 143, bilirubin total 1.1 on 01/23. BUN 36 on 01/23, creatinine 1.56. The patient will have follow-up labs with his PCP. REHABILITATION COURSE: PT notes upon admission, the patient required assistance with all functional transfers and balance and was significantly limited in his ability to walk. He has made good progress and will have assistance from his family upon discharge. He will have home health care PT and obtain an AFO. He is min assist to standby assist for ambulation with a large base quad cane depending upon distance. He is standby assist for bed mobility and transfers. There was some difficulty obtaining his durable medical equipment as he had to get it ordered through a physician at [facility] in [place], even though he lives in [place] but that is due to his medical insurance , I believe. OT notes upon admission the patient required max assist for dressing. Mod assist for transfers and standby assist for grooming. By discharge he was completing feeding, grooming, bathing with modified independence dressing, and transfers and standby assist. Speech therapy notes upon admission, the patient demonstrated moderate expressive aphasia. Skilled speech therapy felt some word finding strategies and functional problem solving. The patient met all goals placed by speech therapy at arrival. Upon discharge home health speech therapy are recommended by his clinician to continue the patient's positive progression and improvement. Speech intelligibility and communication, all markedly improved. DISCHARGE INSTRUCTIONS: From the patient will have follow-up PCP in [place], [place]. Accu-Cheks b.i.d. The patient will have home health care. Continue current diet. DISCHARGE MEDICATIONS: 1. Amlodipine 10 mg p.o. daily. 2. ASA 325 mg p.o. daily. 3. Lipitor 40 mg p.o. at bedtime. 4. Hydralazine 25 mg p.o. q.8 hours. 5. Hydrochlorothiazide 25 mg p.o. daily. 6. Ibuprofen 600 mg p.o. q.6 h. p.r.n. pain. 7. Levemir insulin 8 units subcutaneous at bedtime. 8. Toprol 25 mg p.o. b.i.d. 9. Senokot-S 1 tablet p.o. b.i.d. DISCHARGE DIAGNOSES: 1. Rehabilitation ambulatory dysfunction secondary to intracerebral bleed due to hypertensive crisis, with associated right hemiplegia, all improving. 2. Dysarthria, improving. 3. Mild memory impairment, improving. 4. Difficulty with walking, improving. 5. Right foot drop, AFO ordered. 6. Hypertension, controlled with medication. 7. Diabetes mellitus, controlled on medication. 8. Long-term use insulin. 9. Constipation, treated. 10. History of bladder cancer. CONDITION AT DISCHARGE: Improved and stable. PROGNOSIS: Rehab prognosis appears good for some continued improvement with home health therapies and return to independent living with some assistance from his spouse as needed. Job ID: [id number] Dictated Date: 03/01/2017 11:33:37 Tornado Chaser Date: 03/02/2017 14:32:11/ed PAUL
== END 2017-02-15 14:40 | disposition home health service (06) | DRG 57 ==
PROVIDERS: ADMIT Physical Medicine & Rehabilitation; ATTEND Physical Medicine & Rehabilitation
DX: I69.151 Hemiplegia and hemiparesis following nontraumatic intracerebral hemorrhage affecting right dominant side (principal); I69.122 Dysarthria following nontraumatic intracerebral hemorrhage; I69.111 Memory deficit following nontraumatic intracerebral hemorrhage; I69.198 Other sequelae of nontraumatic intracerebral hemorrhage; R26.2 Difficulty in walking, not elsewhere classified; M21.371 Foot drop, right foot; I10 Essential (primary) hypertension; E11.9 Type 2 diabetes mellitus without complications; Z79.4 Long term (current) use of insulin; K59.00 Constipation, unspecified; Z85.51 Personal history of malignant neoplasm of bladder
CPT/HCPCS: 36415; 80048; 80053; 80061; 81000; 82962; 83036; 85025

== ENCOUNTER 2020-01-17 12:49 | Inpatient (IN) | payer MEDICARE, OTHER ==
[~2020-01-17] VITALS: Ht 180.3 cm; Wt 98.0 kg
[~2020-01-17 12:49] MED LIST: AMLO5TAB9 PO; ASPI-808 PO; ATOR40TA PO; HYDR-3923 PO; HYDR25TA4 PO; IBUP-1773 PO; INSU100V5 SQ; METO-333 PO; SENN-20 PO
[2020-01-17] MEDS ORDERED: FLEET ENEMA ADULT 1 EA BTL PR PRN (13:15)
[2020-01-17] MEDS ORDERED: MELATONIN 3 MG TABLET PO PRN (13:15)
[2020-01-17] MEDS ORDERED: CALCIUM CARBONATE 500 MG (TUMS) TAB.CHEW PO PRN (13:15)
[2020-01-17] MEDS ORDERED: ALPRAZolam 0.25 MG (XANAX) TAB PO PRN (13:15)
[2020-01-17] MEDS ORDERED: diphenhydrAMINE 25 MG TAB (BENADRYL) PO PRN (13:15)
[2020-01-17] MEDS ORDERED: ENOXAPARIN 40 MG/0.4 ML (LOVENOX) SYR SC SCH (13:15)
[2020-01-17] MEDS ORDERED: LACTULOSE SYRUP 10GM/15ML (ENULOSE) 30ML UDC PO PRN (13:15)
[2020-01-17] MEDS ORDERED: BISACODYL 10 MG SUPP (DULCOLAX) PR PRN (13:15)
[2020-01-17] MEDS ORDERED: LOPERAMIDE 2 MG (IMODIUM) TABLET PO PRN (13:15)
[2020-01-17] MEDS ORDERED: ONDANSETRON 4 MG (ZOFRAN) ORAL DISSOLVE TAB PO PRN (13:15)
[2020-01-17] MEDS ORDERED: guaiFENesin/CODEINE (ROBITUSSIN AC) 10ML UDC PO PRN (13:15)
[2020-01-17] MEDS ORDERED: DOCUSATE SODIUM 100 MG (COLACE) CAP PO PRN (13:15)
[2020-01-17] MEDS ORDERED: polyethylene glycoL POWDER 17 GM (MIRALAX) PACK PO SCH (21:00)
[2020-01-17] MEDS ORDERED: SENNA W/DOCUSATE (SENOKOT S) TABLET PO SCH (21:00)
[2020-01-17] MEDS ORDERED: DOCUSATE SODIUM 100 MG (COLACE) CAP PO SCH (21:00)
[2020-01-22] MEDS ORDERED: ONDANSETRON 4 MG (ZOFRAN) ORAL DISSOLVE TAB PO PRN (11:45)
[2020-01-22] MEDS ORDERED: ALPRAZolam 0.25 MG (XANAX) TAB PO PRN (11:45)
[2020-01-22] MEDS ORDERED: LOPERAMIDE 2 MG (IMODIUM) TABLET PO PRN (11:45)
[2020-01-22] MEDS ORDERED: DOCUSATE SODIUM 100 MG (COLACE) CAP PO PRN (11:45)
[2020-01-22] MEDS ORDERED: guaiFENesin/CODEINE (ROBITUSSIN AC) 10ML UDC PO PRN (11:45)
[2020-01-22] MEDS ORDERED: LACTULOSE SYRUP 10GM/15ML (ENULOSE) 30ML UDC PO PRN (11:45)
[2020-01-22] MEDS ORDERED: BISACODYL 10 MG SUPP (DULCOLAX) PR PRN (11:45)
[2020-01-22] MEDS ORDERED: CALCIUM CARBONATE 500 MG (TUMS) TAB.CHEW PO PRN (11:45)
[2020-01-22] MEDS ORDERED: FLEET ENEMA ADULT 1 EA BTL PR PRN (11:45)
[2020-01-22] MEDS ORDERED: ENOXAPARIN 40 MG/0.4 ML (LOVENOX) SYR SC SCH (11:45)
[2020-01-22] MEDS ORDERED: METR500P4 IV (13:55)
[2020-01-22] MEDS ORDERED: GLIP5TAB13 PO (13:55)
[2020-01-22] MEDS ORDERED: ENOX30DI9 SQ (13:55)
[2020-01-22] MEDS ORDERED: CYCL10TA9 PO (13:55)
[2020-01-22] MEDS ORDERED: BISA10SU8 RC (13:55)
[2020-01-22] MEDS ORDERED: ACET325T49 PO (13:55)
[2020-01-22] MEDS ORDERED: PANT40TA2 PO (13:55)
[2020-01-22] MEDS ORDERED: OXYC-473 PO (13:55)
[2020-01-22] MEDS ORDERED: CEFT1PIG2 IV (13:55)
[2020-01-22] MEDS ORDERED: ERGOCALCIFEROL PO (14:48)
[2020-01-22] MEDS ORDERED: MULT-1009 PO (14:48)
[2020-01-22] MEDS ORDERED: ALBU2.5V4 INH (14:48)
[2020-01-22] MEDS ORDERED: SENN1TAB33 PO (14:52)
[2020-01-22] MEDS ORDERED: POLY17PO6 PO (14:52)
[2020-01-22] MEDS ORDERED: METO50TA15 PO (14:53)
[2020-01-22] MEDS ORDERED: [UNRECOGNIZED DRUG - OTHER] IV SCH (17:00)
[2020-01-22] MEDS ORDERED: CYCLOBENZAPRINE 10 MG (FLEXERIL) TAB PO PRN (17:00)
[2020-01-22] MEDS ORDERED: RT-ALBUTEROL SULF 2.5 MG/3 ML PRE-MIX VIAL INH PRN (17:00)
[2020-01-22] MEDS ORDERED: SENNA W/DOCUSATE (SENOKOT S) TABLET PO PRN (17:00)
[2020-01-22] MEDS ORDERED: ENOXAPARIN 30 MG/0.3 ML (LOVENOX) SYR SQ SCH (17:00)
[2020-01-22] MEDS ORDERED: polyethylene glycoL POWDER 17 GM (MIRALAX) PACK PO PRN (17:00)
[2020-01-22] MEDS ORDERED: ACETAMINOPHEN 325 MG TABLET PO PRN (17:00)
[2020-01-22] MEDS ORDERED: METRONIDAZOLE IV SCH (17:00)
--- NOTE | 2020-01-22 17:04 | NUR ---
HALEY NEWTON admitted to room 225, with an admitting diagnosis of RIGHT HIP FX, on 01/22/[address] [facility] via PRIVATE VEHICLE, accompanied by SPOUSE. HALEY TY introduced to surroundings, call light, bed controls, phone, TV, temperature control, lights, meal times, smoking policy, visitor policy, side rail policy, bathrooms and showers. Patient Rights given to patient in the handbook. HALEY TY verbalizes understanding that [facility] is not responsible for the loss or damage to any personal effects or valuables that are kept in the patient's possession during their hospitalization. The following Patient Care Plans were discussed with the PATIENT: Discharge Planning, ALTERED PERIPHERAL TISSUE PERFUSION, PAIN, HIGH RISK: POST OP COMPLICATIONS, KNOWLEDGE DEFICIT: TOTAL HIP REPLACEMENT, POTENTIAL FOR FALL, HIGH RISK: INJURY, AND HIGH RISK: ACTIVITY INTOLERANCE. HALEY TY verbalizes understanding of Interdisciplinary Patient Education. Patient received Patient Rights Booklet, which includes Privacy Act Statement and Data Collection Information Summary.
--- NOTE | 2020-01-22 17:43 | PM&R Post Admission Assessment ---
PM&R HP Date of Visit: Jan 22, 2020 Time of Visit: 17:45 History of Present Illness CC: Right hip fracture POD # 12 HPI: This is a 64yoWM clinic patient of [facility] who lives in [place] and has been to IRF before for rehab following a CVA who presents to the IRF due to recent hip fracture. He has had multiple issues delaying his arrival to the unit including ileus with colonic obstruction, post operative PNA, FUO, UGIB and increased debility. He has a midline in his left arm. His bowels are moving now and is ready to begin rehab. He has residual right sided weakness from the CVA December 2016. He was also noted to have had a prior CVA 14 yrs ago with no residual. He served in the [employer] for 27 years and is . Past Jktwgen-Gmqbol-Jxaiiv Hx Past Med/Social Hx: Reviewed Nursing Past Med/Soc Hx, Reviewed and Corrections made Patient Social History Marrital Status: Employed/Student: retired ([employer]) Alcohol Use: Denies Use Smoking Status: Never a Smoker Recent Foreign Travel: No Contact w/other who traveled: No Recent Hopitalizations: Yes ([facility] RIGHT HIP FX. ) Recent Infectious Disease Expo: No Immunizations Up To Date Pediatric: No Date of Pneumonia Vaccine: Jan 11, 2020 Date of Influenza Vaccine: Jan 11, 2020 Seasonal Allergies Seasonal Allergies: No Past Medical History Surgeries: Bladder Surgery Respiratory: Pneumonia Cardiac: High Cholesterol, Hypertension Neurological: Stroke Genitourinary: Bladder Infection, Renal Failure Gastrointestinal: Gastrointestinal Bleed, Obstructive Bowel, Chronic Constipation Musculoskeletal: Foot Drop Endocrine: Diabetes, Non-Insulin dep Cancer: Bladder Did You Recieve Any Treatments: Yes What Type of Treatment Did You: Surgical Intervention History of Blood Disorders: No Family History Cataracts 19 MOTHER Dementia 19 MOTHER 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 Lives in [place] with spouse. PM&R Allergy/Meds/Data Review Allergies Coded Allergies: No Known Drug Allergies (Unverified , 01/21/17) Home Medications Scheduled Amlodipine Besylate (Amlodipine Besylate), 10 MG PO DAILY Atorvastatin Calcium (Lipitor), 40 MG PO HS Bisacodyl (Bisacodyl), 10 MG RC DAILY, (Reported) Ceftazidime in Dextrose5%Water (Ceftazidime 1 gm Piggyback), 1 GM IV Q8H, (Reported) Enoxaparin Sodium (Lovenox), 30 MG SQ Q12H, (Reported) Glipizide (Glipizide), 5 MG PO DAILY, (Reported) Metoprolol Tartrate (Metoprolol Tartrate), 50 MG PO BID, (Reported) Metronidazole/Sodium Chloride (Metronidazole 500 mg/100 ml), 500 MG IV Q8H, (Reported) Multivits,Ca,Minerals/Iron/FA (Thera M Plus Tablet), 1 EACH PO DAILY, (Reported) Pantoprazole Sodium (Protonix), 40 MG PO DAILY, (Reported) [Ergocalciferol], 50,000 UNITS PO Q7DAYS, (Reported) Scheduled PRN Acetaminophen (Acetaminophen), 650 MG PO Q6H PRN for PAIN-MILD (1-4), (Reported) Albuterol Sulfate (Albuterol Sulfate), 2.5 MG INH Q6H PRN for SOA OR WHEEZING, (Reported) Cyclobenzaprine HCl (Cyclobenzaprine HCl), 10 MG PO TID PRN for SPASMS, (Reported) Oxycodone HCl (Roxicodone), 10 MG PO Q6H PRN for PAIN-SEVERE (8-10), (Reported) Polyethylene Glycol 3350 (Miralax), 17 GM PO DAILY PRN for CONSTIPATION-2ND LINE, (Reported) Sennosides/Docusate Sodium (Sennosides-Docusate Sodium Tab), 1 EACH PO Q12H PRN for CONSTIPATION-1ST LINE, (Reported) Discontinued Medications Aspirin (Aspirin), 325 MG PO DAILY Discontinued Reason: No Longer Taking Hydralazine HCl (Hydralazine HCl), 25 MG PO Q8HR Discontinued Reason: No Longer Taking Hydrochlorothiazide (Hydrochlorothiazide), 25 MG PO DAILY Discontinued Reason: No Longer Taking Ibuprofen (Ibuprofen), 600 MG PO Q6HR PRN for PAIN Discontinued Reason: No Longer Taking Insulin Determir (Levemir), 8 UNIT SQ HS Discontinued Reason: No Longer Taking Metoprolol Tartrate (Metoprolol Tartrate), 25 MG PO BID Discontinued Reason: No Longer Taking Sennosides/Docusate Sodium (Senna-Time S Tablet), 1 EA PO BID Discontinued Reason: No Longer Taking Current Medications Current Medications Reviewed Review of Systems Constitutional: see HPI, malaise, weakness EENTM: no symptoms reported Respiratory: no symptoms reported Cardiovascular: edema Gastrointestinal: diarrhea Genitourinary: no symptoms reported Musculoskeletal: back pain, joint pain (right hip) Skin: no symptoms reported Psychiatric/Neurological: Anxiety, Depressed Physical Exam Physical Exam Vital Signs Capillary Refill : Height, Weight, BMI Height: 5'11.00" Weight: 209lbs. 4.0oz. [id number]; 28.8 BMI Method: General Appearance: No Apparent Distress, WD/WN, Anxious, Chronically ill Eyes: Bilateral Eye Normal Inspection, Bilateral Eye PERRL HEENT: PERRL/EOMI, Normal ENT Inspection, Pharynx Normal Neck: Full Range of Motion, Normal Inspection, Non Tender, Supple, Carotid Bruit Respiratory: Chest Non Tender, Lungs Clear, No Accessory Muscle Use, No Respiratory Distress, Decreased Breath Sounds Cardiovascular: Regular Rate, Rhythm, No Gallop, No JVD, No Murmur, Normal Peripheral Pulses Gastrointestinal: Normal Bowel Sounds, No Organomegaly, No Pulsatile Mass, Non Tender, Soft Back: Normal Inspection, No CVA Tenderness, No Vertebral Tenderness Extremity: Normal Capillary Refill, Normal Inspection, Normal Range of Motion (limited ROM right leg), Non Tender, No Calf Tenderness, Pedal Edema Neurologic/Psychiatric: Alert, Oriented x3, No Motor/Sensory Deficits, Normal Mood/Affect, catcher filter tip II-XII Norm as Tested, Motor Weakness (right sided chronic) Skin: Normal Color, Warm/Dry Lymphatic: No Adenopathy PM&R Medical Assessment & Plan REHAB/MEDICAL ASSESSMENT AND PLAN: REHAB IMPAIRMENT GROUP: Right hip fracture ETIOLOGIC DIAGNOSIS: Right hip fracture The comorbidities that impact the patients function and/or functional outcome by: Prior CVA right sided weakness, fall risk, CRI, DM, HTN, bladder cancer REHAB PLAN: The patient is being admitted to our comprehensive inpatient rehabilitation facility and can tolerate the intensity of service consisting of at least: 180 minutes of therapy a day, 5 out of 7 days a week Rehab treatment will consist of: PT OT will focus on increasing ambulation and ROM right leg considering prior CVA with right sided weakness The patient/family has a good understanding of our discharge process and will benefit from an interdisciplinary inpatient rehabilitation program. The patient has potential to make improvement and is in need of at least two of the following multidisciplinary therapies including but not limited to physical, occupational, speech, and prosthetics and orthotics. Additionally the patient will need services from respiratory, nutritional services, wound care, psychology, etc. (Customize this to each patient). Given the patients complex condition and risk of further medical complications, rehabilitation services cannot be safely or effectively provided at a lower level of care such as a prison facility. BARRIERS TO DISCHARGE: Prior CVA right sided weakness and high risk for falls ESTIMATED LOS: 10 days DISPOSITION: Home with RELEVANT CHANGES SINCE PREADMISSION SCREENING: I have compared the patients medical and functional status at the time of the preadmission screening and there are: no changes PROGNOSIS: Good REHABILITATION GOALS: 1.PT OT will focus on increasing ambulation and ROM right leg considering prior CVA with right sided weakness All the above goals were reviewed with the patient and he/she is in agreement. By signing this document, I acknowledge that I have personally performed a full physical examination on this patient within 24 hours of admission to this inpatient rehabilitation facility and have determined the patient to be able to tolerate the above course of treatment at an intensive level for a reasonable period of time. I will be completing a detailed individualized Plan of Care for this patient by day #4 of the patients stay based upon the Preadmission Screen, the Post-Admission Evaluation, and the therapy evaluations. Admission Dx/Comorbidities: (1) Hip fracture ICD Codes: S72.009A - Fracture of unspecified part of neck of unspecified femur, initial encounter for closed fracture (2) History of CVA with residual deficit ICD Codes: I69.30 - Unspecified sequelae of cerebral infarction (3) Right sided weakness ICD Codes: R53.1 - Weakness (4) Hypertension ICD Codes: I10 - Essential (primary) hypertension (5) Diabetes ICD Codes: E11.9 - Type 2 diabetes mellitus without complications (6) Hyperlipemia ICD Codes: E78.5 - Hyperlipidemia, unspecified (7) Renal insufficiency ICD Codes: N28.9 - Disorder of kidney and ureter, unspecified (8) Anemia ICD Codes: D64.9 - Anemia, unspecified (9) Ileus ICD Codes: K56.7 - Ileus, unspecified (10) Colonic obstruction ICD Codes: K56.609 - Unspecified intestinal obstruction, unspecified as to partial versus complete obstruction (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
--- NOTE | 2020-01-22 17:59 | NUR ---
DR. JIM HERE TO SEE PATIENT.
[2020-01-22 18:00] VITALS: BP 149/85
[2020-01-22 18:02] VITALS: BP 149/85
[2020-01-22] MEDS ORDERED: VITAMIN D2 1.25 MG (50,000 UNITS) CAP PO SCH (18:45)
[2020-01-22] MEDS: polyethylene glycoL POWDER 17 GM (MIRALAX) PACK PO SCH (20:00)
[2020-01-22] MEDS: DOCUSATE SODIUM 100 MG (COLACE) CAP PO SCH (20:00)
[2020-01-22] MEDS: SENNA W/DOCUSATE (SENOKOT S) TABLET PO SCH (20:02)
[2020-01-22] MEDS ORDERED: WATER (STERILE) FOR INJECTION 10 ML ONE (20:07)
[2020-01-22] MEDS: meTOprolol TARTRATE 50 MG (LOPRESSOR) TAB PO SCH (21:00)
[2020-01-22] MEDS: CEFEPIME 1 GM (MAXIPIME) VIAL IV SCH (21:01)
[2020-01-22] MEDS: metroNIDAZOLE 500MG/100ML IVPB 100 ML IV SCH (21:12)
[2020-01-23 05:35] VITALS: BP 161/95
[2020-01-23] MEDS: metroNIDAZOLE 500MG/100ML IVPB 100 ML IV SCH ×3 (06:10→21:22)
[2020-01-23 06:48] LABS: BASOPHILS % (AUTO) 0 % (0-10); EOSINOPHILS # (AUTO) 0.3 10^3/uL (0.0-0.3); EOSINOPHILS % (AUTO) 3 % (0-10); HEMATOCRIT 27 % (40-54); LYMPHOCYTES # (AUTO) 1.2 X 10^3 (1.0-4.0); LYMPHOCYTES % (AUTO) 14 % (12-44); MEAN CORPUSCULAR HEMOGLOBIN 29 PG (25-34); MEAN CORPUSCULAR HGB CONC 33 G/DL (32-36); MEAN CORPUSCULAR VOLUME 88 FL (80-99); MONOCYTES # (AUTO) 0.9 X 10^3 (0.0-1.0); MONOCYTES % (AUTO) 10 % (0-12); NEUTROPHILS # (AUTO) 6.2 X 10^3 (1.8-7.8); NEUTROPHILS % (AUTO) 72 % (42-75); PLATELET COUNT 371 10^3/uL (130-400); RED CELL DISTRIBUTION WIDTH 14.1 % (10.0-14.5); WHITE BLOOD COUNT 8.5 10^3/uL (4.3-11.0)
[2020-01-23 07:16] LABS: ALANINE AMINOTRANSFERASE 21 U/L (0-55); ALBUMIN 2.8 GM/DL (3.2-4.5); ALKALINE PHOSPHATASE 41 U/L (40-136); BILIRUBIN,TOTAL 0.5 MG/DL (0.1-1.0); BUN/CREATININE RATIO 10; CALCIUM 7.8 MG/DL (8.5-10.1); CARBON DIOXIDE 24 MMOL/L (21-32); CHLORIDE 106 MMOL/L (98-107); GFR ESTIMATED > 60; GLUCOSE 155 MG/DL (70-105); POTASSIUM 3.5 MMOL/L (3.6-5.0); SODIUM 137 MMOL/L (135-145); TOTAL PROTEIN 5.5 GM/DL (6.4-8.2)
[2020-01-23] MEDS: DOCUSATE SODIUM 100 MG (COLACE) CAP PO SCH ×2 (08:00→21:20)
[2020-01-23] MEDS: polyethylene glycoL POWDER 17 GM (MIRALAX) PACK PO SCH ×2 (08:00→21:20)
[2020-01-23] MEDS ORDERED: KCL 10 MEQ TAB (MICRO K) PO NR (09:15)
[2020-01-23] MEDS: glipiZIDE 5 MG (GLUCOTROL) TAB PO SCH (09:50)
[2020-01-23] MEDS: meTOprolol TARTRATE 50 MG (LOPRESSOR) TAB PO SCH ×2 (09:50→21:21)
[2020-01-23] MEDS: PANTOPRAZOLE 40 MG (PROTONIX) TAB PO SCH (09:50)
[2020-01-23] MEDS: amLODIPine 5 MG (NORVASC) TAB PO SCH (09:50)
[2020-01-23] MEDS: CEFEPIME 1 GM (MAXIPIME) VIAL IV SCH ×2 (09:50→21:22)
[2020-01-23] MEDS: MULTIVIT W/MINERALS TAB (THERAGRAN M) PO SCH (09:51)
--- NOTE | 2020-01-23 09:53 | Occupational Therapy Eval ---
OT Evaluation-General/PLF Medical Diagnosis Admission Date Jan 22, 2020 at 17:04 Medical Diagnosis: R hemiarthroplasty Onset Date: Jan 23, 2020 Therapy Diagnosis Therapy Diagnosis: Decreased ADL function Height/Weight Height (Feet): 5 Height (Inches): 11.00 Weight (Pounds): 209 Weight (Ounces): 4.0 Precautions Precautions/Isolations: Fall Prevention, Standard Precautions Safety Interventions: Reorient-PRN Weight Bear Status Weight Bearing Restriction: Weight Bearing/Tolerated Location Restriction: R LE Posterior hip precautions: no cross legs, no internal rotation, no bend past 90* hip flexion. Referral Physician: Najma Lindo DO Referral Reason: Activity Tolerance, Self Care, Evaluation/Treatment, Strengthening/ROM Medical History Pertinent Medical History: CVA, DM Additional Medical History HTN, DM2, CKD, CVA (R side affected), CVD, bladder Ca 2012 Current History Pt fell from stance on R hip on 01/09, posterior hemiarthroplasty completed. Pt then experienced abdominal distension with persisten ileus on 01/19, colonoscopy completed 01/20. Pt admits to ARU on 01/22. Reviewed History: Yes Social History Home: Single Level Current Living Status: Significant Other Entry Into Home: Ramp Pt having ramp installed currently. Pt has ~4 steps to enter. ADL-Prior Level of Function SCALE: Activities may be completed with or without assistive devices. 7-Kltttclsku-bcmakpx completes the activity by him/herself with no assistance from a helper. 5-Set-up or Clean-up Assistance-helper sets up or cleans up; patient completes activity. Anthony assists only prior to or following the activity. 4-Supervision or Touching Assistance-helper provides verbal cues and/or touching/steadying and/or contact guard assistance as patient completes activity. Assistance may be provided throughout the activity or intermittently. 3-Partial/Moderate Assistance-helper does LESS THAN HALF the effort. Anthony lifts, holds or supports trunk or limbs, but provides less than half the effort. 2-Substantial/Maximal Assistance-helper does MORE THAN HALF the effort. Anthony lifts or holds trunk or limbs and provides more than half the effort. 5-Mncvzkkpq-kqsbac does ALL the effort. Patient does none of the effort to complete the activity. Or, the assistance of 2 or more helpers is required for the patient to complete the activity. If activity was not attempted, code reason: 7-Patient Refused. 9-Not Applicable-not attempted and the patient did not perform the activity before the current illness, exacerbation or injury. 10-Not Attempted due to Environmental Limitations-(lack of equipment, weather restraints, etc.). 88-Not Attempted due to Medical Conditions or Safety Concerns. ADL PLOF Comments Pt states IND with ADLs (excluding showering where assists with washing underarms). 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 Self Care: Needed Some Help Functional Cognition: Independent DME/Equipment: Bath Chair, Grab Bars, Tub/Shower DME/Equipment Comments quad cane, shower chair, one gb in shower. Occupation: retired [employer] Current Status Subjective Pt seen supine in bed, alert/ awake. Pt oriented x3. Pt denies pain, agreeable to OT eval/ treat. Mental Status/Objective Patient Orientation: Person, Place, Situation Current Glasses/Contacts: Yes Hearing Aids: No Dentures/Partials: No Hand Dominance: Left Upper Extremity ROM Pt hx of CVA ~3 years ago. Pt's natural dominant side R, now utilizes L due to lack of movement. R shoulder flexion (0), shoulder abduction (~75*), elbow flexion (~10*), finger extension palpable, finger flexion to ~functional range L WFL Upper Extremity Coordination WFL LUE Diminished RUE Upper Extremity Sensation WFL - denies UE paresthesias, states RLE experiences tingling/ numbness Upper Extremity Strength L WFL R diminished/ palpable 2/5 ADL-Treatment Eating (QC): 5 (s/u for cutting/ opening items) Oral Hygiene (QC): 7 Shower/Bathe Self (QC): 2 (max A on this date with assist underarms, back, BLE, and bottom. Takes skill of two therapists to complete 10 min stance for LB wash/ dressing.) Upper Body Dressing (QC): 5 (s/u) Lower Body Dressing (QC): 2 (max A for threading bilaterally, educated on AE. Pt able to raise over hips with min A.) On/Off Footwear (QC): 1 (L min AR TDpt requires cues for maintaining precautions.) Toileting Hygiene (QC): 3 (Min A for sit to stand and maintaining safety in stance. Min A for thoroughness.) Other Treatments Pt oriented. Pt able to state 2/3 precautions. Pt educated on use of AE, utilizes during session (QC's taken prior to use of AE). Pt demonstrates residual deficits of R side affected stroke, states only requires assist in shower and is IND at home; Pt utilizes quad cane at home.. Pt searches for words through session, repeats self for thorough pronunciation, and states he feels as though his hip fx will "set him back 3 years." Pt educated on OT role and continuation of therapy to increase his fx IND. Pt agrees to complete ADLs, completes sponge bath EOB. Bed mob with min A for RLE movement, slight edema from R hip. OT individual eval/ treat from [id number], co-treat from [id number] (10 min), co-treat rendered in stance for LB washing/ LB dressing due to decreased balance and strength requiring the skill of two therapists that an aide could not provide. OT focused on hand placement and ADLs as PT focused on transfer, use of walking aides, and balance. Pt sit to stand ~3 times during 10 min, completes with min A x2 for stance, CGA-min A to continue maintenance of balance in stance as pt is unable to maintain balance with R and therefore completes tasks with L hand. Pt returns to sit, pt educated on continued use of AE and training. Pt agrees, pt left with PT end of session EOB. Education OT Patient Education: Correct positioning, Modified ADL techniques, Purpose of tx/functional activities, Reviewed precautions, Rehab process, Safety issues, Transfer techniques, Use of adapted equipment Teaching Recipient: Patient Teaching Methods: Demonstration, Discussion Response to Teaching: Verbalize Understanding, Return Demonstration, Reinforcement Needed OT Short Term Goals Short Term Goals Time Frame: Jan 30, 2020 Oral hygiene: 6 Lower body dressin Putting on/taking off footwear: 3 OT Machine Inker Goals [facility]ci Goals Time Frame: Feb 06, 2020 Eating (QC): 6 Oral Hygiene (QC): 6 Toileting Hygiene (QC): 6 Shower/Bathe Self (QC): 6 Upper Body Dressing (QC): 6 Lower Body Dressing (QC): 6 On/Off Footwear (QC): 6 Additional Goals: 1-Demonstrate ADL Tasks, 2-Verbalize Understanding, 3- ImproveStrength/Delmy 1=Demonstrate adherence to instructed precautions during ADL tasks. 2=Patient will verbalize/demonstrate understanding of assistive devices/modifications for ADL. 3=Patient will improve strength/tolerance for activity to enable patient to perform ADL's. OT Education/Plan Problem List/Assessment Assessment: Decreased Activ Tolerance, Decreased UE Strength, Dependent Soto sfers, Edema, Impaired Bed Mobility, Impaired Coordination, Impaired Funct Balance, Impaired I ADL's, Impaired Self-Care Skills, Restricted Funct UE ROM Discharge Recommendations Plan/Recommendations: Continue POC Therapy Discharge Recommendati: Intermittent Supervision, Home & Family, Post Acute OT Equpiment Recommendations-D/C: Hip Kit Treatment Plan/Plan of Care Treatment,Training & Education: Yes Patient would benefit from OT for education, treatment and training to promote independence in ADL's, mobility, safety and/or upper extremity function for ADL's. Plan of Care: ADL Retraining, Caregiver Training, Functional Mobility, Group Exercise/Act as Ind, Orthotic Fitting/Training, UE Funct Exercise/Act, UE Neuromus Re-Ed/Coord, W/C Management Training Treatment Duration: Feb 06, 2020 Frequency: At least 5 of 7 days/Wk (IRF) Estimated Hrs Per Day: 1.5 hours per day Agreement: Yes Rehab Potential: Good Time/GCodes Start Time: 09:00 Stop Time: 09:45 Total Time Billed (hr/min): 45 Billed Treatment Time 1, EVM (10) 1, ADL 3 (35)= 45 OT individual eval/ treat from [id number] OT/ PT co-treat from [id number] OT individual eval/ treat from [id number], co-treat from [id number] (10 min), co- treat rendered in stance for LB washing/ LB dressing due to decreased balance and strength requiring the skill of two therapists that an aide could not provide. OT focused on hand placement and ADLs as PT focused on transfer, use of walking aides, and balance. GIOVANNA ARMENTA OTR Jan 23, 2020 09:53
[2020-01-23] MEDS: ENOXAPARIN 40 MG/0.4 ML (LOVENOX) SYR SC SCH (09:54)
--- NOTE | 2020-01-23 10:23 | ST Cognitive Linguistic Eval ---
Speech Evaluation-General Medical Diagnosis R hemiarthroplasty Onset Date: Jan 23, 2020 Therapy Diagnosis Therapy Diagnosis: Cognitive-communication Referral Referring Physician: Dr. Lindo Reason for Referral: Evaluation/Treatment Medical History Pertinent Medical History: CVA, DM Reviewed History: Yes Social History Current Living Status: Significant Other Speech PLF-Current Status Prior Level of Function Patient reported experiencing a CVA approximately 3 years ago and recieved minimal speech therapy during that time. He reports having some deficits in his recall of information. Subjective Patient was alert, pleasant, and cooperative for all evaluation tasks. Patient reported that he was feeling good, however takes a while to process information and recall information. Patient sat upright in his bed for the duration of the evaluation. Language Eval: Auditory Comprehends Simple Yes/No Ques: Functional Indent/Objects Multiple Brice: Functional Ident/Pics in Multiple Brice: Functional Follows 1-Step Commands: Functional Follows Complex Directions: Mild Follows General Conversations: Functional Language Eval: Verbal Language Completes Spontaneous Greeting: Functional Produces Auto, Serial Info: Mild Imitates Simple Words/Phrases: Functional Word Finding: Mild Requests Basic Needs: Functional States Basic Personal Info: Functional Expresses Complex Ideas: Mild Objective Cognitive Domain Attention: WNL Memory: Moderate Problem Solving: Mild Executive Functions: Mild Visuospatial Skills: WNL Composite Severity Rating: Moderate Clock Drawing Severity Rating: WNL Objective Formal/Standardized Tests The [facility] Mental Status (UMS) Examination was administered. Results The patient was administered the SLUMS and scored 18/30 which falls within the moderate dementia range of cognitive functions. Oral Motor/Speech Production Within functional limits. Impression The patient is a 64-year-old male who was admitted to the ARU s/p R hemiarthroplasty. The patient was administered the SLUMS and scored 18/30 which falls within the moderate dementia level of cognitive function. The patient will receive skilled ST therapy to address cognitive deficits in the areas of memory and problem solving. Treatment will focus on increasing cognitive functions and effectively communicate wants/needs both in the ARU and upon discharge. Speech Patient Assess Expression of Ideas/Wants: Exhibits (3) Understanding Verbal Content: Usually Understands (3) Brief Interview-Mental Status: Yes Repetition of Three Words: Three (3) Temporal Orientation: Year: Correct (3) Temporal Orientation: Month: Missed by 6 days-1 month (1) Temporal Orientation: Day: Incorrect or No Answer(0) Recall : Wear to say "Sock": Yes, no cue required (2) Recall : Color: Yes, after cueing (1) Recall : Bed: No, could not recall (0) Memory/Recall Ability: Current season, That he or she is in a hsp/hsp unit Speech Short Term Goals Short Term Goals Short Term Goals 1. The patient will complete memory tasks at 90% accuracy with minimal cues. 2. The patient will complete problem-solving tasks at 90% accuracy with minimal cues. 3. The patient will complete safety awareness tasks at 90% accuracy with minimal cues. Speech Shelter Goals Shelter Goals Patient will improve cognitive-communication necessary for safety and daily living tasks with minimal assist. Speech-Plan Patient/Family Goals Patient/Family Goals: Patient reported wanting to return to prior level of independence and mobility. Treatment Plan Speech Therapy Treatment Plan: Continue Plan of Care Treatment Duration: Feb 01, 2020 Frequency: 4 times per week (4-5x's per week) Estimated Hrs Per Day: .5 hour per day Rehab Potential: Good Barriers to Learning: Moderate cognitive deficits Pt/Family Agrees to Plan: Yes Safety Risks/Education Teaching Recipient: Patient Teaching Methods: Demonstration, Discussion Response to Teaching: Verbalize Understanding Education Topics Provided: Evaluation tasks and benefits of skilled ST therapy Time Speech Therapy Time In: 08:30 Speech Therapy Time Out: 08:45 Total Billed Time: 15 Billed Treatment Time 1LA [address] ST Jan 23, 2020 10:23
[2020-01-23] MEDS ORDERED: AMLO10TA7 PO (10:50)
[2020-01-23] MEDS ORDERED: ATOR40TA70 PO (10:50)
--- NOTE | 2020-01-23 11:15 | Physical Therapy Evaluation ---
PT Evaluation-General Medical Diagnosis Admission Date Jan 22, 2020 at 17:04 Medical Diagnosis: R hemiarthroplasty Onset Date: Jan 22, 2020 Therapy Diagnosis Therapy Diagnosis: Muscle weakness, loss of ROM, debility Height/Weight Height (Feet): 5 Height (Inches): 11.00 Weight (Pounds): 209 Weight (Ounces): 4.0 Precautions Precautions/Isolations: Fall Prevention, Standard Precautions Weight Bear Status Right Lower Extremity: Right Weight Bearing/Tolerated Left Lower Extremity: Left Full Weight Bearing Referral Physician: Najma Lindo DO Reason for Referral: Evaluation/Treatment Medical History Pertinent Medical History: CVA, DM Additional Medical History CVA (R side affected), bladder Ca 2012 Current History Pt fell from stance on R hip on 01/09, posterior hemiarthroplasty completed. Pt then experienced abdominal distension with persisten ileus on 01/19, colonoscopy completed 01/20. Pt admits to ARU on 01/22. Reviewed History: Yes Social History Home: Single Level Current Living Status: Significant Other Entry Into Home: Ramp PT Steps Into Home: 4 Patient has approximately 4 steps to get into house but a ramp is currently being installed. Prior Prior Level of Function SCALE: Activities may be completed with or without assistive devices. 1-Efgtmwlczr-bgxmfnt completes the activity by him/herself with no assistance from a helper. 5-Set-up or Clean-up Assistance-helper sets up or cleans up; patient completes activity. [place] assists only prior to or following the activity. 4-Supervision or Touching Assistance-helper provides verbal cues and/or touching/steadying and/or contact guard assistance as patient completes activity. Assistance may be provided throughout the activity or intermittently. 3-Partial/Moderate Assistance-helper does LESS THAN HALF the effort. [place] lifts, holds or supports trunk or limbs, but provides less than half the effort. 2-Substantial/Maximal Assistance-helper does MORE THAN HALF the effort. [place] lifts or holds trunk or limbs and provides more than half the effort. 1-Bwtxkyekn-vdaxgm does ALL the effort. Patient does none of the effort to complete the activity. Or, the assistance of 2 or more helpers is required for the patient to complete the activity. If activity was not attempted, code reason: 7-Patient Refused. 9-Not Applicable-not attempted and the patient did not perform the activity before the current illness, exacerbation or injury. 10-Not Attempted due to Environmental Limitations-(lack of equipment, weather restraints, etc.). 88-Not Attempted due to Medical Conditions or Safety Concerns. Bed Mobility: 6 Transfers (B,C,W/C): 6 Gait: 6 Stairs: 6 Indoor Mobility (Ambulation): Independent Stairs: Independent Prior Devices Use: Other-see list below Prior Device Use: Cane PT Evaluation-Current Subjective Patient is agreeable to therapy at this time. Co-treatment for a few minutes due to poor patient mobility, right hemiplegia, poor standing balance, the need to coordinate UE and LE during activity. Co-treatment from [id number] for standing and dressing, changing brief. Pain Numeric Pain Scale: 7 Location: Right Location Body Site: Hip Objective Patient Orientation: Person, Place, Situation ROM/Strength ROM Lower Extremities WNL LLE, some limitations in RLE Strength Lower Extremities R side impaired - unable to actively move R ankle, moves R knee and hip in limited ROM actively. L side 4/5 Integumentary/Posture Integumentary See nursing notes. Bowel Incontinence: Yes Neuromuscular (Tone, Coordination, Reflexes) No increased or decreased tone on RLE Sensory Vision: Wears Glasses Hearing: Hearing Aid/Aides Hand Dominance: Left Sensation Right Lower Extremit: Intact Sensation Left Lower Extremity: Intact Transfers Roll Left to Right (QC): 3 Sit to Lying (QC): 3 Lying to Sitting/Side of Bed(Q: 3 Sit to Stand (QC): 3 Chair/Cqe-ka-Olbac Xfer(QC): 3 Toilet Transfer: 3 Car Transfer (QC): 3 Gait Does the Patient Walk?: No and Walking Goal IS indicated Mode of Locomotion: Walk Anticipated Mode of Locomotion: Both Walk 10 feet (QC): 88 Walk 50 ft with 2 Turns(QC): 88 Walk 150 ft (QC): 88 Walking 10ft/uneven surface-QC: 88 Wheelchair Training Does the Pt Use a Wheelchair?: Yes Distance: 150' Wheel 50 ft with 2 turns (QC): 5 Wheel 150 ft (QC): 5 Type of Wheelchair: Manual Stairs 1 Step (curb) (QC): 88 4 Steps (QC): 88 12 Steps (QC): 88 Balance Sitting Static: Fair Sitting Dynamic: Fair Standing Static: Poor Standing Dynamic: Poor Picking up an Object (QC): 88 Treatment BLE supine exercises x 10 each leg: SLR, SAQ, quad set, heel slides, ankle pumps, hip abduction. Right side AAROM Assessment/Needs Patient fatigued quickly during exercises and increased his pain level. Patient required frequent breaks while performing exercises and was unable to perform exercises IND on the right side. Patient was unsteady when standing and could not safely walk at this time due weakness of the right side. Patient can perform stand pivot transfer but during a few of transfer patient stated he "got stuck" and needed to sit back down and start over. Rehab Potential: Fair Post Rehab Potential-Barriers: R sided weakness following CVA. PT Short Term Goals Short Term Goals Time Frame: Jan 30, 2020 Roll Left & Right: 6 Sit to lyin Lying to sitting on side of be: 4 Sit to stand: 4 Chair/kqv-lt-rpahk transfer: 4 Walk 10 feet: 4 PT [employer] [place] Goals Prison Goals PT Prison Goals Time Frame: Feb 13, 2020 Roll Left & Right (QC): 6 Sit to Lying (QC): 6 Lying-Sitting on Side/Bed(QC): 6 Sit to Stand (QC): 4 (SBA) Chair/Nqo-ny-Nlhlg Xfer(QC): 4 (SBA) Toilet Transfer (QC): 4 (SBA) Car Transfer (QC): 4 (SBA) Does the Patient Walk: Yes Walk 10 feet (QC): 4 Walk 50ft with 2 Turns (QC): 4 Walking 10ft on Uneven Surface: 4 1 Step (curb) (QC): 4 PT Plan Problem List Problem List: Activity Tolerance, Functional Strength, Safety, Balance, Gait, Transfer, Bed Mobility, ROM Treatment/Plan Treatment Plan: Continue Plan of Care Treatment Plan: Bed Mobility, Education, Functional Activity Delmy, Functional Strength, Group Therapy, Gait, Safety, Therapeutic Exercise, Transfers Treatment Duration: Feb 13, 2020 Frequency: At least 5 of 7 days/Wk (IRF) Estimated Hrs Per Day: 1.5 hours per day Patient and/or Family Agrees t: Yes Safety Risks/Education Patient Education: Gait Training, Transfer Techniques, Reviewed Precautions, Correct Positioning, Safety Issues Teaching Recipient: Patient Teaching Methods: Demonstration, Discussion Response to Teaching: Reinforcement Needed Discharge Recommendations Plan Patient will perform bed mobility training, strength and endurance training, stair training, gait and balance training. Therapy Discharge Recommendati: Home & Family Time/GCodes Time In: 0935 Time Out: 1030 Total Billed Treatment Time: 55 Total Billed Treatment 1 visit EVM 15 EX 15 FA 25 Co-treat with OT for 10 min. BROOKE WORLEY PT Jan 23, 2020 11:15
--- NOTE | 2020-01-23 11:21 | PM&R Progress Note ---
Subjective HPI/CC On Admission Date Seen by Provider: Jan 23, 2020 Time Seen by Provider: 10:00 Subjective/Events-last exam Right sided weakness makes it difficult Right heel decubitus ulcer being managed by wound care Loose stools now Incontinent of bowel at times IV antibiotics of Flagyl and Ceptaz noted Midline is functioning okay Incision of the left hip fracture okay Cognition is a bit compromised since the stroke in 2017 Appointment tomorrow with orthopedics will be hopefully changed since that would disrupt his recovery Reviewed therapy notes Checked meds and labs Conferred with fine grader of Systems General: Fatigue Gastrointestinal: Constipation Genitourinary: Incontinence Musculoskeletal: leg pain Objective Exam Vital Signs Vital Signs Date Time Temp Pulse Resp B/P (MAP) Pulse Ox O2 Delivery O2 Flow Rate FiO2 01/24/20 18:00 37.2 86 16 151/88 (109) 97 Room Air Capillary Refill : Less Than 3 SecondsLess Than 3 Seconds General Appearance: No Apparent Distress, WD/WN, Anxious, Chronically ill HEENT: PERRL/EOMI, Normal ENT Inspection, Pharynx Normal Neck: Full Range of Motion, Normal Inspection, Non Tender, Supple, Carotid Bruit Respiratory: Chest Non Tender, Lungs Clear, No Accessory Muscle Use, No Respiratory Distress, Decreased Breath Sounds Cardiovascular: Regular Rate, Rhythm, No Gallop, No JVD, No Murmur, Normal Peripheral Pulses Gastrointestinal: Normal Bowel Sounds, No Organomegaly, No Pulsatile Mass, Non Tender, Soft Back: Normal Inspection, No CVA Tenderness, No Vertebral Tenderness Extremity: Normal Capillary Refill, Normal Inspection, Normal Range of Motion (limited ROM right leg), Non Tender, No Calf Tenderness, Pedal Edema Neurologic/Psychiatric: Alert, Oriented x3, No Motor/Sensory Deficits, Normal Mood/Affect, reinforcer II-XII Norm as Tested, Motor Weakness (right sided chronic) Skin: Normal Color, Warm/Dry Lymphatic: No Adenopathy Results/Procedures Lab Patient resulted labs reviewed. FIM Transfers Therapy Code Descriptions/Definitions Functional [place] Measure: 0=Not Assessed/NA 4=Minimal Assistance 1=Total Assistance 5=Supervision or Setup 2=Maximal Assistance 6=Modified [place] 3=Moderate Assistance 7=Complete IndependenceSCALE: Activities may be completed with or without assistive devices. 9-Kbaufxprvq-eiudmgw completes the activity by him/herself with no assistance from a helper. 5-Set-up or Clean-up Assistance-helper sets up or cleans up; patient completes activity. [place] assists only prior to or following the activity. 4-Supervision or Touching Assistance-helper provides verbal cues and/or touching/steadying and/or contact guard assistance as patient completes activity. Assistance may be provided throughout the activity or intermittently. 3-Partial/Moderate Assistance-helper does LESS THAN HALF the effort. [place] lifts, holds or supports trunk or limbs, but provides less than half the effort. 2-Substantial/Maximal Assistance-helper does MORE THAN HALF the effort. [place] lifts or holds trunk or limbs and provides more than half the effort. 0-Qrapimbmf-fjvihg does ALL the effort. Patient does none of the effort to complete the activity. Or, the assistance of 2 or more helpers is required for the patient to complete the activity. If activity was not attempted, code reason: 7-Patient Refused. 9-Not Applicable-not attempted and the patient did not perform the activity before the current illness, exacerbation or injury. 10-Not Attempted due to Environmental Limitations-(lack of equipment, weather restraints, etc.). 88-Not Attempted due to Medical Conditions or Safety Concerns. ADL-Treatment Eating (QC): 5 (s/u for cutting/ opening items) Oral Hygiene (QC): 7 Shower/Bathe Self (QC): 2 (max A on this date with assist underarms, back, BLE, and bottom. Takes skill of two therapists to complete 10 min stance for LB wash/ dressing.) Upper Body Dressing (QC): 5 (s/u) Lower Body Dressing (QC): 2 (max A for threading bilaterally, educated on AE. Pt able to raise over hips with min A.) On/Off Footwear (QC): 1 (L min AR TDpt requires cues for maintaining precautions.) Toileting Hygiene (QC): 3 (Min A for sit to stand and maintaining safety in stance. Min A for thoroughness.) Assessment/Plan Assessment and Plan Assess & Plan/Chief Complaint Assessment: s/p right hip fracture FUO at [facility] completing abx 6 more days IV h/o CVA with right sided weakness HTN DM HTN CRI Entercolitis Plan: IRF protocol Bladder and bowel management Manage incontinence Pain control (1) Hip fracture (2) History of CVA with residual deficit (3) Right sided weakness (4) Hypertension (5) Diabetes (6) Hyperlipemia (7) Renal insufficiency (8) Anemia (9) Ileus (10) Colonic obstruction (11) [place]'s syndrome (12) GI bleed (13) Edema (14) Enterocolitis (15) FUO (fever of unknown origin) MARTIN JIM DO Jan 23, 2020 11:21
--- NOTE | 2020-01-23 11:26 | Individualized Plan of Care ---
Individualized Plan of Care Rehab Nursing IPOC Order Admission Date Jan 22, 2020 at 17:04 Current Orders Orders Admission Order(Inpt,Obs,Sdc) (01/17/20 13:07) Vital Signs: Per Unit Policy ( (01/17/20 13:07) Jason Hose 09,21 (01/17/20 13:07) Sequential Compression Device Q4H (01/17/20 13:07) Nurse Special-Inpt Rehab Con (01/17/20 13:07) Rehab Nursing Orders-Ipoc (01/17/20 13:07) Physical Therapy Rehab Orders (01/17/20 13:07) Occupational Therapy Rehab Ord (01/17/20 13:07) Speech Therapy Rehab Orders (01/17/20 13:07) General/Regular (01/17/20 Dinner) Intake & Output 06,14,22 (01/17/20 13:07) Precautions (Aru) (01/17/20 13:07) Weekly Weight WEEK (01/17/20 13:07) Rehab-Intensity Of Therapy (01/17/20 13:07) Initiate Admission Nursing Pro .admission (01/17/20 13:07) Initiate Admission Nursing Pro .admission (01/17/20 13:07) Admission Order(Inpt,Obs,Sdc) (01/22/20 11:45) Vital Signs: Per Unit Policy ( (01/22/20 11:45) Jason Hose 09,21 (01/22/20 11:45) Sequential Compression Device Q4H (01/22/20 11:45) Nurse Special-Inpt Rehab Con (01/22/20 11:45) Rehab Nursing Orders-Ipoc (01/22/20 11:45) Physical Therapy Rehab Orders (01/22/20 11:45) Occupational Therapy Rehab Ord (01/22/20 11:45) Speech Therapy Rehab Orders (01/22/20 11:45) Cbc With Automated Diff (01/23/20 06:00) Comprehensive Metabolic Panel (01/23/20 06:00) General/Regular (01/22/20 Dinner) Intake & Output 06,14,22 (01/22/20 11:45) Precautions (Aru) (01/22/20 11:45) Weekly Weight WEEK (01/22/20 11:45) Rehab-Intensity Of Therapy (01/22/20 11:45) Initiate Admission Nursing Pro .admission (01/22/20 11:45) Alprazolam Tablet (Xanax Tablet) (01/22/20 11:45) Calcium Carbonate Chew Tablet (Antacid C (01/22/20 11:45) Diphenhydramine Tablet (Benadryl Tablet) (01/22/20 11:45) Docusate Sodium Capsule (Colace Capsule) (01/22/20 21:00) Docusate Sodium Capsule (Colace Capsule) (01/22/20 11:45) Bisacodyl Suppository (Dulcolax Supposit (01/22/20 11:45) Lactulose Oral Solution (Enulose Oral So (01/22/20 11:45) Na Phos/Na Biphos Enema (Fleet Enema Aleksandar (01/22/20 11:45) Guaifenesin/Codeine Syrup (Robitussin Ac (01/22/20 11:45) Loperamide Tablet (Imodium Tablet) (01/22/20 11:45) Enoxaparin Injection (Lovenox Injection) (01/22/20 11:45) Melatonin Tablet (Melatonin Tablet) (01/22/20 11:45) Polyethylene Glycol Powder Pkt (Miralax (01/22/20 21:00) Ondansetron Oral Dissolve Tab (Zofran (01/22/20 11:45) Senna S Tablet (Senokot S Tablet) (01/22/20 21:00) Initiate Admission Nursing Pro .admission (01/22/20 11:45) Acetaminophen Tablet/Caplet (Tylenol T (01/22/20 17:00) Albuterol Pre-Mix Nebs (Rt) (Proventil (01/22/20 17:00) Amlodipine Tablet (Norvasc Tablet) (01/23/20 09:00) Atorvastatin Tablet (Lipitor) (01/22/20 21:00) Bisacodyl Suppository (Dulcolax Supposit (01/23/20 09:00) Cyclobenzaprine Tablet (Flexeril Tablet) (01/22/20 17:00) Enoxaparin Injection (Lovenox Injection) (01/22/20 17:00) Glipizide Tablet (Glucotrol Tablet) (01/23/20 09:00) Metoprolol Tartrate (Ir) Tab (Lopressor (01/22/20 21:00) Metronidazole 500mg/100ml Ivpb (Flagyl 5 (01/22/20 17:00) Therapeutic Multivitamin Tab (Vitamins, (01/23/20 09:00) Oxycodone Immediate Rel Tablet (Oxyir Ta (01/22/20 17:00) Pantoprazole Tablet (Protonix Tablet) (01/23/20 09:00) Polyethylene Glycol Powder Pkt (Miralax (01/22/20 17:00) Senna S Tablet (Senokot S Tablet) (01/22/20 17:00) Cefepime Injection (Maxipime Injection) (01/22/20 21:00) Ergocalciferol Capsule (Vitamin D2 Capsu (01/22/20 18:45) Svn Small Volume Nebulizer (01/22/20 16:46) Admission Arrival Bed Request (01/22/20 17:04) Follow-Up Appointment (01/22/20 18:00) Nursing Communication (Order) (01/22/20 18:00) Staple/Suture Removal (01/22/20 18:00) Weight Bearing Status (01/22/20 18:00) Nursing Communication (Order) (01/22/20 18:00) Accucheck Daily DAILY (01/22/20 18:05) Ambulate 08,12,20 (01/22/20 18:26) Sequential Compression Device Q4H (01/22/20 18:26) Dvt/Vte Risk - Notifiy Physici Q4H (01/22/20 18:26) Enoxaparin Injection (Lovenox Injection) (01/23/20 09:00) Metronidazole 500mg/100ml Ivpb (Flagyl 5 (01/22/20 22:00) Ergocalciferol Capsule (Vitamin D2 Capsu (01/27/20 09:00) Water (Sterile) For Injection (Sterile W (01/22/20 20:07) Potassium Chloride (Tablet) (Klor Con Ta (01/24/20 07:00) Potassium Chloride (Tablet) (Klor Con Ta (01/23/20 09:15) Patient Visit (01/23/20 ) Speech Sound Lang Comp (01/23/20 ) Nursing Communication (Order) (01/23/20 11:05) Patient Visit (01/23/20 ) Pt Eval Moderate Complexity (01/23/20 ) Exercise Therap, Ea 15 Min (01/23/20 ) Functional Activities, Ea 15 (01/23/20 ) Patient Visit (01/23/20 ) Therapeutic, Group (01/23/20 ) Water (Sterile) For Injection (Sterile W (01/23/20 19:28) Rehab Nursing Orders: Ongoing Assess. of Cognitive Status, Ongoing Assess. of Function Status, Bladder Management, Bladder Scan, Bladder Training, Bowel Management, Bowel Training, Disease Management & Educaiton, DVT Prophylaxis, Fall Prevention, Fluid/Electrolyte/Nutrition Mgmt, Infection Prevention, Medication Management & Education, Management of Risks & Complications, Management of Skin Intergrity, Nutrition Management, Pain Management, Patient/Family Support, Safety Management, Swallow Precautions Intensity of Therapy to be met Patient to be seen: Min.3h per day/5 of 7d PT IPOC Problem List: Activity Tolerance, Functional Strength, Safety, Balance, Gait, Transfer, Bed Mobility, ROM Treatment Plan: Continue Plan of Care Bed Mobility, Concurrent Therapy, Education, Functional Activity Delmy, Functional Strength, Group Therapy, Gait, Safety, Therapeutic Exercise, Transfers Treatment Duration: Feb 06, 2020 Frequency: At least 5 of 7 days/Wk (IRF) Estimated Hrs Per Day: 1.5 hours per day OT IPOC Problems: Decreased Activ Tolerance, Decreased UE Strength, Dependent Transfers, Edema, Impaired Bed Mobility, Impaired Coordination, Impaired Funct Balance, Impaired I ADL's, Impaired Self-Care Skills, Restricted Funct UE ROM OT Treatment, Training and Edu: Yes Plan of Care: ADL Retraining, Caregiver Training, Functional Mobility, Group Exercise/Act as Ind, Orthotic Fitting/Training, UE Funct Exercise/Act, UE Neuromus Re-Ed/Coord, W/C Management Training Treatment Duration: Feb 06, 2020 Frequency: At least 5 of 7 days/Wk (IRF) Estimated Hrs Per Day: 1.[address] IPOC Speech Therapy Treatment Plan: Continue Plan of Care Treatment Duration: Feb 01, 2020 Frequency: 4 times per week (4-5x's per week) Estimated Hrs Per Day: .5 hour per day Nurse Special/Case Mgmt Nurse Special/Case Managemen: Discharge Planning Dietitian/Display Fabrication Supervisor Dietitian/Display Fabrication Supervisor to monitor nutritional status and make changes and/or recommendations as needed and work with speech pathology on dietary upgrades as the occur. Physician IPOC Medical Issues being managed closely and that require the 24 hour availability of a physician: Recent ileus and FUO will require close monitoring for decompensation Medical Issues: Bowel/Bladder Function, DVT Prophylaxis, Falls Precautions, Fluid/Electrolyte/Nutrition Balance, Infection Protection, Pain Management Brief Synthesis of Preadmission Screen, Post-Admission Evaluation, and Therapy Evaluations: PT OT and ST will focus on improving ADL's and ambulation in order to return home. Medical Prognosis: Good Anticipated Length of Stay: 7 days MARTIN JIM DO Jan 23, 2020 11:26
--- NOTE | 2020-01-23 12:10 | NUR ---
PT UP IN CHAIR, CUSHION PLACE UNDER R HEEL, PT EDUCATED ON THE IMPORTANCE OF RELIEVING PRESSURE TO HIS R HEEL BY REPOSITIONING FREQUENTLY (Q2HRS) AND ELEVATING TO RESTORE BLOOD FLOW.
[2020-01-23] MEDS: SENNA W/DOCUSATE (SENOKOT S) TABLET PO SCH ×2 (12:26→21:19)
[2020-01-23] MEDS: BISACODYL 10 MG SUPP (DULCOLAX) RC SCH (12:27)
--- NOTE | 2020-01-23 15:21 | Therapy Group Daily Note ---
Therapy Daily Group Note Patient Education Topic Exercises Exercises LE Seated Exercise, UE Exercise Session Ratio (pt:therapist): 3:1 Goal of Session: Education on ARU Expectations, UE/LE Strengthing Goal Met for this Session: Yes Pt Benefit of Group: Contributions to Others, F/U Use of Strategies @Home, Increased Functional Safety, Increased Functional Strength, Improved Cognition, Recognition of Peers, Socialization Other/Notes Pt was propelled in W/C to [facility] area for OT/PT group. Group consisted of introductions (name, place living, blessings of nature), socialization, pt led UE/LE seated exercises and benefits of exercise. Pt introduced self appropriately and actively listened to peers. Pt was able to lead one exercise for group then completed other exercises needing assistance for R UE as well as R LE during seated UE/LE exercises. Pt acknowledge understanding of educational topic by giving own personal stories and completed each exercise with good technique. After group, pt lying in bed with call light/phone in reach. All needs met in room. Start Time: 13:00 Stop Time: 14:15 Total Billed Treatment Time: 75 Total Billed Treatment 1, BUDDY CATHERINE WHITEHEAD PRECONSTRUCTION MANAGER Jan 23, 2020 15:21
--- NOTE | 2020-01-23 15:59 | NUR ---
CM/SS ADMISSION Patient was admitted from [facility] to ARU 01/22/20 with diagnosis Right Hip Fracture. Patient has history of CVA 2017 and was a patient here from 01/21/17-02/15/17. Prior to hospitalization at [facility] post fall with fracture, he states he resided at home with his spouse of 34 years, Lauren Kulkarni. He plans to return there when safely able to do so. 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 He did share that at age 64 he has not been able to enjoy his snf thus far due to his stroke and now fall with fracture. DME: Patient was ambulatory with a quad cane, he does have a wheelchair. He indicates he does not have FWW. Will partner with therapy team regarding recommendations for adaptive devices. PCP: [facility] NP. PH [phone] and FX [phone] INSURANCE: Medicare, [facility] PHARMACY: [facility] CONTACTS: Lauren Kulkarni, Spouse [phone] Patient has three sons he indicates reside in reasonable proximity to him: Darci Kulkarni, age 33 Arian Kulkarni, age 28 Jamin Kulkarni, age 18 Patient indicated understanding of the process and purpose of the weekly team conference.
[2020-01-23 17:11] VITALS: BP 153/79
[2020-01-23] MEDS ORDERED: WATER (STERILE) FOR INJECTION 10 ML ONE (19:28)
[2020-01-24] MEDS: metroNIDAZOLE 500MG/100ML IVPB 100 ML IV SCH ×3 (05:45→21:54)
[2020-01-24 06:07] VITALS: BP 156/90
[2020-01-24] MEDS: KCL 10 MEQ TAB (MICRO K) PO SCH (06:21)
[2020-01-24 09:32] VITALS: BP 124/82
[2020-01-24] MEDS: PANTOPRAZOLE 40 MG (PROTONIX) TAB PO SCH (09:32)
[2020-01-24] MEDS: MULTIVIT W/MINERALS TAB (THERAGRAN M) PO SCH (09:32)
[2020-01-24] MEDS: meTOprolol TARTRATE 50 MG (LOPRESSOR) TAB PO SCH ×2 (09:32→21:53)
[2020-01-24] MEDS: ENOXAPARIN 40 MG/0.4 ML (LOVENOX) SYR SC SCH (09:32)
[2020-01-24] MEDS: glipiZIDE 5 MG (GLUCOTROL) TAB PO SCH (09:32)
[2020-01-24] MEDS: amLODIPine 5 MG (NORVASC) TAB PO SCH (09:32)
[2020-01-24] MEDS: DOCUSATE SODIUM 100 MG (COLACE) CAP PO SCH ×2 (09:33→21:48)
[2020-01-24] MEDS: SENNA W/DOCUSATE (SENOKOT S) TABLET PO SCH ×2 (09:33→21:51)
[2020-01-24] MEDS: BISACODYL 10 MG SUPP (DULCOLAX) RC SCH (09:33)
[2020-01-24] MEDS: polyethylene glycoL POWDER 17 GM (MIRALAX) PACK PO SCH ×2 (09:33→21:51)
[2020-01-24] MEDS: CEFEPIME 1 GM (MAXIPIME) VIAL IV SCH (09:54)
--- NOTE | 2020-01-24 10:07 | Speech Therapy Daily Note ---
Speech Daily Progress Note Subjective Date Seen by Provider: Jan 24, 2020 Time Seen by Provider: 09:00 Patient was alert, pleasant, and cooperative for all therapy tasks. Patient reported that he's feeling good today, however his short term memory continues to give him problems. Patient sat upright in his chair for the duration of treatment. Objective Patient completed memory tasks pertaining to short term paragraph recall with 75% accuracy and minimal cues. Assessment Assessment Current Status: Good Progress Treatment Plan Continue Plan of Care Speech Short Term Goals Short Term Goals Short Term Goals 1. The patient will complete memory tasks at 90% accuracy with minimal cues. 2. The patient will complete problem-solving tasks at 90% accuracy with minimal cues. 3. The patient will complete safety awareness tasks at 90% accuracy with minimal cues. 4. The patient will complete word-finding tasks at 90% accuracy with minimal cues. Speech Dairy Cattle Farmer Goals Senior Care Goals Patient will improve cognitive-communication necessary for safety and daily living tasks with minimal assist. Speech-Plan Patient/Family Goals Patient/Family Goals: Patient reported that he wishes to return home and hold conversations with his family members. Treatment Plan Speech Therapy Treatment Plan: Continue Plan of Care Treatment Duration: Feb 01, 2020 Frequency: 4 times per week (4-5x's per week) Estimated Hrs Per Day: .5 hour per day Rehab Potential: Fair Barriers to Learning: Moderate cognitive deficits Pt/Family Agrees to Plan: Yes Safety Risks/Education Teaching Recipient: Patient Teaching Methods: Demonstration, Discussion Response to Teaching: Verbalize Understanding Education Topics Provided: Utilization of memory strategies to recall important information Time Speech Therapy Time In: 09:00 Speech Therapy Time Out: 09:30 Total Billed Time: 30 Billed Treatment Time 1, OSVALDO West Jan 24, 2020 10:07
--- NOTE | 2020-01-24 10:27 | Occupational Ther Daily Note ---
OT Current Status-Daily Note Subjective Pt seen in bed, pt agreeable to OT tx session with goals of dressing/ use of AE on this date. Pt states "some pain" in R hip, states he is getting guru out on this date. Mental Status/Objective Patient Orientation: Person, Place, Situation ADL-Treatment Therapy Code Descriptions/Definitions Functional [place] Measure: 0=Not Assessed/NA 4=Minimal Assistance 1=Total Assistance 5=Supervision or Setup 2=Maximal Assistance 6=Modified [place] 3=Moderate Assistance 7=Complete IndependenceSCALE: Activities may be completed with or without assistive devices. 5-Hfcgyzdwhi-nqnxfot completes the activity by him/herself with no assistance from a helper. 5-Set-up or Clean-up Assistance-helper sets up or cleans up; patient completes activity. [place] assists only prior to or following the activity. 4-Supervision or Touching Assistance-helper provides verbal cues and/or touching/steadying and/or contact guard assistance as patient completes activity. Assistance may be provided throughout the activity or intermittently. 3-Partial/Moderate Assistance-helper does LESS THAN HALF the effort. [place] lifts, holds or supports trunk or limbs, but provides less than half the effort. 2-Substantial/Maximal Assistance-helper does MORE THAN HALF the effort. [place] lifts or holds trunk or limbs and provides more than half the effort. 7-Vhgizcfsf-ofhkwp does ALL the effort. Patient does none of the effort to complete the activity. Or, the assistance of 2 or more helpers is required for the patient to complete the activity. If activity was not attempted, code reason: 7-Patient Refused. 9-Not Applicable-not attempted and the patient did not perform the activity before the current illness, exacerbation or injury. 10-Not Attempted due to Environmental Limitations-(lack of equipment, weather restraints, etc.). 88-Not Attempted due to Medical Conditions or Safety Concerns. Eating (QC): 5 Oral Hygiene (QC): 6 (completes seated in chair- able to complete with mod I (use of L hand while seated)) Upper Body Dressing (QC): 5 Lower Body Dressing (QC): 3 (min A and CGA in stance. Use of corporate risk analyst for LB dressing, skilled cues for positioning and sequencing. Pt able to complete with increased IND on this date.) On/Off Footwear: 2 (Pt training with sock aide, completes L sock with OT holding sock aide, utilizes L hand to thread sock over sock aide. Pt completes process with skilled cues for placement/ sequencing/ ease.) Toileting Hygiene (QC): 4 (Pt completes BSC transfer with CGA, use of annie cane, BSC placed to L side of bed. Pt completes BM. CGA in stance post-BM, able to complete with s/u for wipes) Toilet Transfer (QC): 4 (CGA and cues for positioning) Other Treatment [id number]: Pt completes bed mob with min A for R LE movement. Pt states didn't sleep too well and that boot on R foot bothered him. pt states this is his pressure reducing boot is his from home, states had pressure area on R heel for over a year. Pt educated on importance of continued use. Pt agreed. Pt completes UB dressing EOB, toilet transfer and LB dressing on commode. Pt then transfers to recliner chair, completes 3 exercises with L UE with theraband (20 reps each) of shoulder flexion, shoulder abduction, and bicep curls with skilled cues for placement and tension needs. Pt states he feels as though his balance has been slightly altered since fall, continued balance training during ADLs and R UE stretching/ AAROM techniques discussed for future tx sessions. Pt educated on AUTOMOTIVE FUEL INJECTION SERVICER session post-OT, pt left in recliner with call light in reach/ all needs met. [id number]: Pt seen in recliner chair, nursing present. Pt agreeable to OT tx session, denying pain. Pt educated on HEP to exercise/ strengthen L UE and stretching/ AAROM of RUE. Pt completes ther ex with L UE with theraband placed around pt's L leg for resistance point. Pt completes 20 reps of bicep curls and shoulder flexions. PROM completed upon all joints of RUE- pt educated on safe AAROM with use of LUE. Pt return demonstrates with cues/ demonstration throughout. Pt states he desires written instructions- will provide later date. Pt completes AAROM on towel/ tabletop with cues. Pt completes and denies needs, call light in reach, denies additional ADLs. Education OT Patient Education: Correct positioning, Exercise program, Home exercise program, Modified ADL techniques, Reviewed precautions, Safety issues, Transfer techniques, Use of adapted equipment Teaching Recipient: Patient Teaching Methods: Demonstration, Discussion Response to Teaching: Verbalize Understanding, Return Demonstration, Reinforcement Needed OT Short Term Goals Short Term Goals Time Frame: Jan 30, 2020 Oral hygiene: 6 Lower body dressin Putting on/taking off footwear: 3 OT Spring Encaser Goals Spring Encaser Goals Time Frame: Feb 06, 2020 Eating (QC): 6 Oral Hygiene (QC): 6 Toileting Hygiene (QC): 6 Shower/Bathe Self (QC): 6 Upper Body Dressing (QC): 6 Lower Body Dressing (QC): 6 On/Off Footwear (QC): 6 Additional Goals: 1-Demonstrate ADL Tasks, 2-Verbalize Understanding, 3-ImproveStrength/Delmy 1=Demonstrate adherence to instructed precautions during ADL tasks. 2=Patient will verbalize/demonstrate understanding of assistive devices/modifications for ADL. 3=Patient will improve strength/tolerance for activity to enable patient to perform ADL's. OT Education/Plan Problem List/Assessment Assessment: Decreased Activ Tolerance, Decreased UE Strength, Dependent Transfers, Edema, Impaired Coordination, Impaired Funct Balance, Impaired I ADL's, Impaired Self-Care Skills, Restricted Funct UE ROM Discharge Recommendations Plan/Recommendations: Continue POC Equpiment Recommendations-D/C: Hip Kit Treatment Plan/Plan of Care Treatment,Training & Education: Yes Patient would benefit from OT for education, treatment and training to promote independence in ADL's, mobility, safety and/or upper extremity function for ADL's. Plan of Care: ADL Retraining, Caregiver Training, Functional Mobility, Group Exercise/Act as Ind, Orthotic Fitting/Training, UE Funct Exercise/Act, UE Neuromus Re-Ed/Coord, W/C Management Training Treatment Duration: Feb 06, 2020 Frequency: At least 5 of 7 days/Wk (IRF) Estimated Hrs Per Day: 1.5 hours per day Agreement: Yes Rehab Potential: Fair Time/GCodes Start Time: 08:00 Stop Time: 09:00 Total Time Billed (hr/min): 90 Billed Treatment Time [id number]: 1, ADL 3 (45), EX (15)= 60 1920-9007: 1, EX 2 (30) GIOVANNA ARMENTA OTR Jan 24, 2020 10:27
--- NOTE | 2020-01-24 10:57 | Physical Therapy Daily Note ---
PT Daily Note-Current Subjective Patient in recliner pre tx, agrees to PT, has significant unrated pain with activity. Patient needs shoes on, will not wear an AFO due to a sore on his right heel, dependent to put shoes on. Appearance Patient in recliner post tx with nurse call, phone, tray, all needs met. Mental Status Patient Orientation: Person, Place, Situation Transfers SCALE: Activities may be completed with or without assistive devices. 2-Tikxnpixzd-vxzlmwu completes the activity by him/herself with no assistance from a helper. 5-Set-up or Clean-up Assistance-helper sets up or cleans up; patient completes activity. [place] assists only prior to or following the activity. 4-Supervision or Touching Assistance-helper provides verbal cues and/or touching /steadying and/or contact guard assistance as patient completes activity. Assistance may be provided throughout the activity or intermittently. 3-Partial/Moderate Assistance-helper does LESS THAN HALF the effort. [place] lifts, holds or supports trunk or limbs, but provides less than half the effort. 2-Substantial/Maximal Assistance-helper does MORE THAN HALF the effort. [place] lifts or holds trunk or limbs and provides more than half the effort. 1-Ibuvnhdrn-hemcwe does ALL the effort. Patient does none of the effort to complete the activity. Or, the assistance of 2 or more helpers is required for the patient to complete the activity. If activity was not attempted, code reason: 7-Patient Refused. 9-Not Applicable-not attempted and the patient did not perform the activity before the current illness, exacerbation or injury. 10-Not Attempted due to Environmental Limitations-(lack of equipment, weather restraints, etc.). 88-Not Attempted due to Medical Conditions or Safety Concerns. Sit to Stand (QC): 3 Chair/Nkc-xl-Vlevw Xfer(QC): 3 Min assist to stand from low or high surfaces, min assist for stand pivot transfer to the right and CGA to the left. Weight Bearing Right Lower Extremity: Right Weight Bearing/Tolerated Left Lower Extremity: Left Full Weight Bearing Gait Training Distance: 20' Walk 10 feet (QC): 3 Gait Persons Needed: 1 Gait Assistive Device: Walker Haresh difficulty advancing his right leg, very slow ambulation Wheelchair Training Does the Pt Use a Wheelchair?: Yes Wheel 50 ft with 2 turns (QC): 4 Wheel 150 ft (QC): 4 Type of Wheelchair: Manual SBA Exercises Seated Therapy Exercises: Ankle pumps, Long arc quads, Hip abd/add (with RTB and ball) Seated Reps: 15 Standing: Mini squats Standing Reps: 15 sidestepping in parallel bars 8'x4 Treatments ambulation, WC mobility, functional strengthening Assessment Current Status: Fair Progress Patient fatigues quickly, needs frequent rest breaks PT Short Term Goals Short Term Goals Time Frame: Jan 30, 2020 Roll Left & Right: 6 Sit to lyin Lying to sitting on side of be: 4 Sit to stand: 4 Chair/epk-kv-cmvhz transfer: 4 Walk 10 feet: 4 PT Inspector Canned Food Reconditioning Goals Inspector Canned Food Reconditioning Goals PT Inspector Canned Food Reconditioning Goals Time Frame: Feb 13, 2020 Roll Left & Right (QC): 6 Sit to Lying (QC): 6 Lying-Sitting on Side/Bed(QC): 6 Sit to Stand (QC): 4 (SBA) Chair/Oup-jo-Ausvk Xfer(QC): 4 (SBA) Toilet Transfer (QC): 4 (SBA) Car Transfer (QC): 4 (SBA) Does the Patient Walk: Yes Walk 10 feet (QC): 4 Walk 50ft with 2 Turns (QC): 4 Walking 10ft on Uneven Surface: 4 1 Step (curb) (QC): 4 PT Plan Problem List Problem List: Activity Tolerance, Functional Strength, Safety, Balance, Gait, Transfer, Bed Mobility, ROM Treatment/Plan Treatment Plan: Continue Plan of Care Treatment Plan: Bed Mobility, Education, Functional Activity Delmy, Functional Strength, Group Therapy, Gait, Safety, Therapeutic Exercise, Transfers Treatment Duration: Feb 13, 2020 Frequency: At least 5 of 7 days/Wk (IRF) Estimated Hrs Per Day: 1.5 hours per day Patient and/or Family Agrees t: Yes Safety Risks/Education Patient Education: Gait Training, Transfer Techniques, Correct Positioning, W/C Management, Safety Issues Teaching Recipient: Patient Teaching Methods: Demonstration, Discussion Response to Teaching: Reinforcement Needed Time/GCodes Time In: 1000 Time Out: 1100 Total Billed Treatment Time: 60 Total Billed Treatment 1 visit [facility] 20' GT 15' FA 25' BROOKE WORLEY PT Jan 24, 2020 10:57
[2020-01-24] MEDS ORDERED: WATER (STERILE) FOR INJECTION 10 ML ONE (11:12)
--- NOTE | 2020-01-24 11:46 | PM&R Progress Note ---
Subjective HPI/CC On Admission Date Seen by Provider: Jan 24, 2020 Time Seen by Provider: 10:00 Subjective/Events-last exam Incontinent of bowel and bladder last night and did not call the nurse Will have an appointment at orthopedics on the 3rd Will remove guru every other today and two days later will remove the rest Outpatient wound care for heel Oxycodone is helping the pain Reviewed therapy notes Checked meds and labs Conferred with signaling design engineer of Systems General: Fatigue Pulmonary: Dyspnea Musculoskeletal: leg pain Objective Exam Vital Signs Vital Signs Date Time Temp Pulse Resp B/P (MAP) Pulse Ox O2 Delivery O2 Flow Rate FiO2 01/24/20 18:00 37.2 86 16 151/88 (109) 97 Room Air Capillary Refill : Less Than 3 SecondsLess Than 3 Seconds General Appearance: No Apparent Distress, WD/WN, Anxious, Chronically ill HEENT: PERRL/EOMI, Normal ENT Inspection, Pharynx Normal Neck: Full Range of Motion, Normal Inspection, Non Tender, Supple, Carotid Bruit Respiratory: Chest Non Tender, Lungs Clear, No Accessory Muscle Use, No Respiratory Distress, Decreased Breath Sounds Cardiovascular: Regular Rate, Rhythm, No Gallop, No JVD, No Murmur, Normal Peripheral Pulses Gastrointestinal: Normal Bowel Sounds, No Organomegaly, No Pulsatile Mass, Non Tender, Soft Back: Normal Inspection, No CVA Tenderness, No Vertebral Tenderness Extremity: Normal Capillary Refill, Normal Inspection, Normal Range of Motion (limited ROM right leg), Non Tender, No Calf Tenderness, Pedal Edema Neurologic/Psychiatric: Alert, Oriented x3, No Motor/Sensory Deficits, Normal Mood/Affect, software development leader II-XII Norm as Tested, Motor Weakness (right sided chronic) Skin: Normal Color, Warm/Dry Lymphatic: No Adenopathy Results/Procedures Lab Patient resulted labs reviewed. FIM Transfers Therapy Code Descriptions/Definitions Functional [place] Measure: 0=Not Assessed/NA 4=Minimal Assistance 1=Total Assistance 5=Supervision or Setup 2=Maximal Assistance 6=Modified [place] 3=Moderate Assistance 7=Complete IndependenceSCALE: Activities may be completed with or without assistive devices. 6-Qbdmnnrojm-xgjmdwl completes the activity by him/herself with no assistance from a helper. 5-Set-up or Clean-up Assistance-helper sets up or cleans up; patient completes activity. [place] assists only prior to or following the activity. 4-Supervision or Touching Assistance-helper provides verbal cues and/or touching/steadying and/or contact guard assistance as patient completes activity. Assistance may be provided throughout the activity or intermittently. 3-Partial/Moderate Assistance-helper does LESS THAN HALF the effort. [place] lifts, holds or supports trunk or limbs, but provides less than half the effort. 2-Substantial/Maximal Assistance-helper does MORE THAN HALF the effort. [place] lifts or holds trunk or limbs and provides more than half the effort. 3-Xzzsmpper-jmepyz does ALL the effort. Patient does none of the effort to complete the activity. Or, the assistance of 2 or more helpers is required for the patient to complete the activity. If activity was not attempted, code reason: 7-Patient Refused. 9-Not Applicable-not attempted and the patient did not perform the activity before the current illness, exacerbation or injury. 10-Not Attempted due to Environmental Limitations-(lack of equipment, weather restraints, etc.). 88-Not Attempted due to Medical Conditions or Safety Concerns. Roll Left to Right (QC): 3 Sit to Lying (QC): 3 Sit to Stand (QC): 3 Chair/Uqn-mg-Litjl Xfer(QC): 3 Car Transfer (QC): 3 Gait Training Does the Patient Walk?: Yes Distance: 20' Walk 10 feet (QC): 3 Walk 50 ft with 2 Turns(QC): 88 Walk 150 ft (QC): 88 Walking 10ft/uneven surface-QC: 88 Gait Persons Needed: 1 Gait Assistive Device: Walker Haresh Wheelchair Training Does the Pt Use a Wheelchair?: Yes Distance: 150' Wheel 50 ft with 2 turns (QC): 4 Wheel 150 ft (QC): 4 Type of Wheelchair: Manual Stair Training 1 Step (curb) (QC): 88 4 Steps (QC): 88 12 Steps (QC): 88 Balance Picking up an Object (QC): 88 ADL-Treatment Eating (QC): 5 Oral Hygiene (QC): 6 (completes seated in chair- able to complete with mod I (use of L hand while seated)) Shower/Bathe Self (QC): 2 (max A on this date with assist underarms, back, BLE, and bottom. Takes skill of two therapists to complete 10 min stance for LB wash/ dressing.) Upper Body Dressing (QC): 5 Lower Body Dressing (QC): 3 (min A and CGA in stance. Use of stabilizer operator for LB dressing, skilled cues for positioning and sequencing. Pt able to complete with increased IND on this date.) On/Off Footwear (QC): 2 (Pt training with sock aide, completes L sock with OT holding sock aide, utilizes L hand to thread sock over sock aide. Pt completes process with skilled cues for placement/ sequencing/ ease.) Toileting Hygiene (QC): 4 (Pt completes BSC transfer with CGA, use of haresh cane, BSC placed to L side of bed. Pt completes BM. CGA in stance post-BM, able to complete with s/u for wipes) Toilet Transfer (QC): 4 (CGA and cues for positioning) Assessment/Plan Assessment and Plan Assess & Plan/Chief Complaint Assessment: s/p right hip fracture FUO at [facility] completing abx 6 more days IV h/o CVA with right sided weakness HTN DM HTN CRI Entercolitis Plan: IRF protocol Bladder and bowel management Manage incontinence Pain control (1) Hip fracture (2) History of CVA with residual deficit (3) Right sided weakness (4) Hypertension (5) Diabetes (6) Hyperlipemia (7) Renal insufficiency (8) Anemia (9) Ileus (10) Colonic obstruction (11) [place]'s syndrome (12) GI bleed (13) Edema (14) Enterocolitis (15) FUO (fever of unknown origin) MARTIN JIM DO Jan 24, 2020 11:46
--- NOTE | 2020-01-24 13:43 | Physical Therapy Daily Note ---
PT Daily Note-Current Subjective Agreeable to PT. Transfers SCALE: Activities may be completed with or without assistive devices. 5-Fgcrmqbnbd-dmivkaa completes the activity by him/herself with no assistance from a helper. 5-Set-up or Clean-up Assistance-helper sets up or cleans up; patient completes activity. [place] assists only prior to or following the activity. 4-Supervision or Touching Assistance-helper provides verbal cues and/or touching/steadying and/or contact guard assistance as patient completes activity. Assistance may be provided throughout the activity or intermittently. 3-Partial/Moderate Assistance-helper does LESS THAN HALF the effort. [place] lifts, holds or supports trunk or limbs, but provides less than half the effort. 2-Substantial/Maximal Assistance-helper does MORE THAN HALF the effort. [place] lifts or holds trunk or limbs and provides more than half the effort. 7-Tljvjymfb-axxpxu does ALL the effort. Patient does none of the effort to complete the activity. Or, the assistance of 2 or more helpers is required for the patient to complete the activity. If activity was not attempted, code reason: 7-Patient Refused. 9-Not Applicable-not attempted and the patient did not perform the activity before the current illness, exacerbation or injury. 10-Not Attempted due to Environmental Limitations-(lack of equipment, weather restraints, etc.). 88-Not Attempted due to Medical Conditions or Safety Concerns. Sit to Lying (QC): 3 (min assist to left right leg into bed. Skilled cues for sequencing. ) Sit to Stand (QC): 3 Chair/Kcz-ht-Vxirf Xfer(QC): 3 (SPT x 4 reps with min assist to his left with skilled cues for sequencing and safety. ) Weight Bearing Right Lower Extremity: Right Weight Bearing/Tolerated Left Lower Extremity: Left Full Weight Bearing Wheelchair Training Wheel 150 ft (QC): 5 Type of Wheelchair: Manual 150 ft x 2 Exercises NuStep Minutes: 10 (To promote LE strength and functional act tolerance. ) Treatments Functional transfer trainin; LE strength; pt in bed post treatment with needs met and right heel elevated. Assessment Current Status: Good Progress Pt needs cues for sequencing and safety. PT Short Term Goals Short Term Goals Time Frame: Jan 30, 2020 Roll Left & Right: 6 Sit to lyin Lying to sitting on side of be: 4 Sit to stand: 4 Chair/bzf-ig-nkogn transfer: 4 Walk 10 feet: 4 PT Multimedia Technician Goals Multimedia Technician Goals PT Multimedia Technician Goals Time Frame: Feb 13, 2020 Roll Left & Right (QC): 6 Sit to Lying (QC): 6 Lying-Sitting on Side/Bed(QC): 6 Sit to Stand (QC): 4 (SBA) Chair/Ulh-bd-Ufwhq Xfer(QC): 4 (SBA) Toilet Transfer (QC): 4 (SBA) Car Transfer (QC): 4 (SBA) Does the Patient Walk: Yes Walk 10 feet (QC): 4 Walk 50ft with 2 Turns (QC): 4 Walking 10ft on Uneven Surface: 4 1 Step (curb) (QC): 4 PT Plan Problem List Problem List: Activity Tolerance, Functional Strength, Safety, Balance, Gait, Transfer, Bed Mobility Treatment/Plan Treatment Plan: Continue Plan of Care Treatment Plan: Bed Mobility, Education, Functional Activity Delmy, Functional Strength, Group Therapy, Gait, Safety, Therapeutic Exercise, Transfers Treatment Duration: Feb 13, 2020 Frequency: At least 5 of 7 days/Wk (IRF) Estimated Hrs Per Day: 1.5 hours per day Patient and/or Family Agrees t: Yes Safety Risks/Education Patient Education: Transfer Techniques Teaching Recipient: Patient Teaching Methods: Discussion Response to Teaching: Reinforcement Needed Time/GCodes Time In: 1305 Time Out: 1338 Total Billed Treatment Time: 33 Total Billed Treatment visit FA 23 (1 unit billed) EX 10 CHULA MULLEN PT Jan 24, 2020 13:43
--- NOTE | 2020-01-24 14:08 | NUR ---
CM/SS WEEKLY TEAM CONFERENCE SUMMARY Met with patient to discuss Summary, he is in agreement to a continued stay with reevaluation in 7 days. Continue intermittent review of EMR and patient updates as it pertains to post hospital care plan.
[2020-01-24 18:00] VITALS: BP 151/88
[2020-01-24 20:00] VITALS: BP 153/90
--- NOTE | 2020-01-24 20:06 | NUR ---
Earlier today, around noon, Received call from Jeannie, at [facility] in [place] for pt to have guru removed today, since it has been 2 weeks since surgery. Notified that Dr. Lindo had already given the order to remove every other staple today, & the remaining guru in 2 days. Jeannie stated that this was fine. New appt scheduled for F/U appt for pt to see Dr. Ady Cancino on February 11, @ 9:15. Notified pt & of this.
--- NOTE | 2020-01-24 20:12 | NUR ---
Pt tolerated well the removal of every other staple, as ordered, from Rt hip incision.
[2020-01-24] MEDS: CEFEPIME 1,000 MG/SWFI 10 ML IV PUSH IV SCH ×2 (21:45)
--- NOTE | 2020-01-24 22:00 | NUR ---
RESTLESS, CAN'T GET COMFORTABLE. TOOK OFF SCD'S. DENIES PAIN. AGREED TO MELATONIN TO TRY TO REST. DENIES WANTING TO BE TURNED. STATES SLEEPS ON HIS BACK. REFUSES BOOT TO RIGHT FOOT. RIGHT LEG ELEVATED ON PILLOW TO KEEP HEEL OFF BED.
[2020-01-24] MEDS: MELATONIN 3 MG TABLET PO PRN (22:13)
--- NOTE | 2020-01-25 04:00 | NUR ---
INCONTINENT OF URINE AND STOOL AND VERY FRUSTRATED WITH SELF.
[2020-01-25] MEDS: metroNIDAZOLE 500MG/100ML IVPB 100 ML IV SCH ×3 (05:23→22:47)
[2020-01-25] MEDS: CATHETER FLUSH 10 ML SYR IV SCH ×3 (05:24→22:47)
[2020-01-25 05:58] VITALS: BP 135/87
[2020-01-25] MEDS: KCL 10 MEQ TAB (MICRO K) PO SCH (06:05)
[2020-01-25] MEDS: PANTOPRAZOLE 40 MG (PROTONIX) TAB PO SCH (08:45)
[2020-01-25] MEDS: MULTIVIT W/MINERALS TAB (THERAGRAN M) PO SCH (08:45)
[2020-01-25] MEDS: amLODIPine 5 MG (NORVASC) TAB PO SCH (08:45)
[2020-01-25] MEDS: meTOprolol TARTRATE 50 MG (LOPRESSOR) TAB PO SCH ×2 (08:45→20:35)
[2020-01-25] MEDS: glipiZIDE 5 MG (GLUCOTROL) TAB PO SCH (08:45)
[2020-01-25] MEDS: CEFEPIME 1,000 MG/SWFI 10 ML IV PUSH IV SCH ×4 (08:46→20:23)
[2020-01-25] MEDS: ENOXAPARIN 40 MG/0.4 ML (LOVENOX) SYR SC SCH (08:46)
[2020-01-25] MEDS: polyethylene glycoL POWDER 17 GM (MIRALAX) PACK PO SCH ×2 (08:48→20:35)
[2020-01-25] MEDS: DOCUSATE SODIUM 100 MG (COLACE) CAP PO SCH ×2 (08:48→20:35)
[2020-01-25] MEDS: SENNA W/DOCUSATE (SENOKOT S) TABLET PO SCH ×2 (08:49→20:36)
[2020-01-25] MEDS: BISACODYL 10 MG SUPP (DULCOLAX) RC SCH (08:49)
--- NOTE | 2020-01-25 09:04 | Occupational Ther Daily Note ---
OT Current Status-Daily Note Subjective Pt seen in w/c, sleeping. Pt startles awake, states slept ~2 hours last night as he had to urinate multiple times and then couldn't get comfortable. Pt agrees to OT, states mild discomfort/ stiffness in R leg. Mental Status/Objective Patient Orientation: Person, Place, Situation ADL-Treatment Therapy Code Descriptions/Definitions Functional [place] Measure: 0=Not Assessed/NA 4=Minimal Assistance 1=Total Assistance 5=Supervision or Setup 2=Maximal Assistance 6=Modified [place] 3=Moderate Assistance 7=Complete IndependenceSCALE: Activities may be completed with or without assistive devices. 5-Vmnvriyxwr-mxodnal completes the activity by him/herself with no assistance from a helper. 5-Set-up or Clean-up Assistance-helper sets up or cleans up; patient completes activity. [place] assists only prior to or following the activity. 4-Supervision or Touching Assistance-helper provides verbal cues and/or touching/steadying and/or contact guard assistance as patient completes activity. Assistance may be provided throughout the activity or intermittently. 3-Partial/Moderate Assistance-helper does LESS THAN HALF the effort. [place] lifts, holds or supports trunk or limbs, but provides less than half the effort. 2-Substantial/Maximal Assistance-helper does MORE THAN HALF the effort. [place] lifts or holds trunk or limbs and provides more than half the effort. 8-Gnrpfpzif-lfaxik does ALL the effort. Patient does none of the effort to complete the activity. Or, the assistance of 2 or more helpers is required for the patient to complete the activity. If activity was not attempted, code reason: 7-Patient Refused. 9-Not Applicable-not attempted and the patient did not perform the activity before the current illness, exacerbation or injury. 10-Not Attempted due to Environmental Limitations-(lack of equipment, weather restraints, etc.). 88-Not Attempted due to Medical Conditions or Safety Concerns. Eating (QC): 6 Oral Hygiene (QC): 7 Upper Body Dressing (QC): 6 Lower Body Dressing (QC): 3 (min A- cues for use of metal flow coordinator and dressing R leg first (did not carry over from yesterday's tx)) On/Off Footwear: 2 (max A- pt able to complete L sock with sock aide with min AACE bandage rewrapped post-feet cleaning. Heel avoided due to pressure. Sock donned with TD) Other Treatment Pt completes ADLs in room/ w/c. Pt states 3/3 precautions, though during pant donning states doesn't know why he needs AE/ why he can't brain picker LB dressing from floor. Pt educated and pt agrees and states he understands. Pt moves to recliner chair with CGA. Pt completes RUE AAROM with cues for positioning. Pt then completes PROM from OT within all joints to full range and mm relaxation techniques utilized for tight mms. Pt then completes L hand extensor/ strategy director strength activity with weighted bands and hand sponge. Pt states very tired, reclined in recliner with pillows and cushion to manage pressure and comfort. All needs met, call light in reach, pt educated on schedule. Education OT Patient Education: Correct positioning, Exercise program, Home exercise program, Modified ADL techniques, Purpose of tx/functional activities, Reviewed precautions, Use of adapted equipment Teaching Recipient: Patient Teaching Methods: Demonstration Response to Teaching: Verbalize Understanding, Return Demonstration, Reinforcement Needed OT Short Term Goals Short Term Goals Time Frame: Jan 30, 2020 Oral hygiene: 6 Lower body dressin Putting on/taking off footwear: 3 OT Assisted Goals Sales Operations Manager Goals Time Frame: Feb 06, 2020 Eating (QC): 6 Oral Hygiene (QC): 6 Toileting Hygiene (QC): 6 Shower/Bathe Self (QC): 6 Upper Body Dressing (QC): 6 Lower Body Dressing (QC): 6 On/Off Footwear (QC): 6 Additional Goals: 1-Demonstrate ADL Tasks, 2-Verbalize Understanding, 3- ImproveStrength/Delmy 1=Demonstrate adherence to instructed precautions during ADL tasks. 2=Patient will verbalize/demonstrate understanding of assistive devices/modific ations for ADL. 3=Patient will improve strength/tolerance for activity to enable patient to perform ADL's. OT Education/Plan Problem List/Assessment Assessment: Decreased Activ Tolerance, Decreased UE Strength, Dependent Transfers, Edema, Impaired Coordination, Impaired Funct Balance, Impaired I ADL's, Impaired Self-Care Skills, Restricted Funct UE ROM Discharge Recommendations Plan/Recommendations: Continue POC Therapy Discharge Recommendati: Intermittent Supervision, Scheduled Assistance Treatment Plan/Plan of Care Treatment,Training & Education: Yes Patient would benefit from OT for education, treatment and training to promote independence in ADL's, mobility, safety and/or upper extremity function for ADL's. Plan of Care: ADL Retraining, Caregiver Training, Functional Mobility, Group Exercise/Act as Ind, Orthotic Fitting/Training, UE Funct Exercise/Act, UE Neuromus Re-Ed/Coord, W/C Management Training Treatment Duration: Feb 06, 2020 Frequency: At least 5 of 7 days/Wk (IRF) Estimated Hrs Per Day: 1.5 hours per day Agreement: Yes Rehab Potential: Fair Time/GCodes Start Time: 08:00 Stop Time: 09:00 Total Time Billed (hr/min): 60 Billed Treatment Time 1, ADL 2, EX 2 (60) GIOVANNA ARMENTA OTR Jan 25, 2020 09:04
--- NOTE | 2020-01-25 10:59 | Physical Therapy Daily Note ---
PT Daily Note-Current Subjective Pt. states he is not in any pain until he is exercising or walking or TRFing. Speaks of his medical history. States "I think Im too late but I need to get in that bathroom Pain Numeric Pain Scale: 6 Location: Right Location Body Site: Hip Pain Description: Stabbing Mental Status Patient Orientation: Person, Place, Time, Situation Transfers SCALE: Activities may be completed with or without assistive devices. 8-Khbotjcvem-pfjuwsh completes the activity by him/herself with no assistance from a helper. 5-Set-up or Clean-up Assistance-helper sets up or cleans up; patient completes activity. [place] assists only prior to or following the activity. 4-Supervision or Touching Assistance-helper provides verbal cues and/or touching/steadying and/or contact guard assistance as patient completes activity. Assistance may be provided throughout the activity or intermittently. 3-Partial/Moderate Assistance-helper does LESS THAN HALF the effort. [place] lifts, holds or supports trunk or limbs, but provides less than half the effort. 2-Substantial/Maximal Assistance-helper does MORE THAN HALF the effort. [place] lifts or holds trunk or limbs and provides more than half the effort. 7-Hlgaiilwv-kkkrch does ALL the effort. Patient does none of the effort to complete the activity. Or, the assistance of 2 or more helpers is required for the patient to complete the activity. If activity was not attempted, code reason: 7-Patient Refused. 9-Not Applicable-not attempted and the patient did not perform the activity bef ore the current illness, exacerbation or injury. 10-Not Attempted due to Environmental Limitations-(lack of equipment, weather r estraints, etc.). 88-Not Attempted due to Medical Conditions or Safety Concerns. Roll Left & Right (QC): 3 Sit to Lying (QC): 3 Lying to Sitting/Side of Bed(Q: 3 Sit to Stand (QC): 4 Chair/Nti-gq-Jbslu Xfer(QC): 3 Toilet Transfer (QC): 4 Weight Bearing Right Lower Extremity: Right Weight Bearing/Tolerated Left Lower Extremity: Left Full Weight Bearing Gait Training Does the Patient Walk?: Yes Walk 10 feet (QC): 4 Walk 50 ft with 2 Turns(QC): 4 Gait Persons Needed: 1 Gait Assistive Device: Walker Haresh this DESK OPERATOR made some suggestions regarding the positioning of the haresh walker as pt has it too far away from him at times and positioned in the way of his advancing step with left foot. Pt. right LE knee is in flexed position all the time and he is unable to extend it for better stability for gait Wheelchair Training Does the Pt Use a Wheelchair?: Yes Wheel 50 ft with 2 turns (QC): 5 Wheel 150 ft (QC): 5 Type of Wheelchair: Manual requires assist to lock brake on right and needs directed as well as requiring R foot rest as right LE impaired from previous CVA and now this fracture etc Exercises Supine Ex: Ankle pumps (HC stretch right 4 x 20s), Quad Set, Glut sets, Heel Slides (assisted right), Short Arc Quads (assisted right), Straight leg raise (assisted right), Hip abd/add (assisted right) Supine Reps: 10 (x2) Seated Therapy Exercises: Ankle pumps, Sit to stand, Long arc quads Seated Reps: 15 Treatments emphasis on gait and safety, positioning and TRFs and safety Assessment Current Status: Good Progress pain and hemiplegia secondary to Hx CVA complicates functional mobility and is painful PT Short Term Goals Short Term Goals Time Frame: Jan 30, 2020 Roll Left & Right: 6 Sit to lyin Lying to sitting on side of be: 4 Sit to stand: 4 Chair/wdr-pb-faojw transfer: 4 Walk 10 feet: 4 PT Shelter Goals Shelter Goals PT Donor Center Technician Goals Time Frame: Feb 13, 2020 Roll Left & Right (QC): 6 Sit to Lying (QC): 6 Lying-Sitting on Side/Bed(QC): 6 Sit to Stand (QC): 4 (SBA) Chair/Jjf-dc-Fracx Xfer(QC): 4 (SBA) Toilet Transfer (QC): 4 (SBA) Car Transfer (QC): 4 (SBA) Does the Patient Walk: Yes Walk 10 feet (QC): 4 Walk 50ft with 2 Turns (QC): 4 Walking 10ft on Uneven Surface: 4 1 Step (curb) (QC): 4 PT Plan Treatment/Plan Treatment Plan: Continue Plan of Care Treatment Plan: Bed Mobility, Education, Functional Activity Delmy, Functional Strength, Group Therapy, Gait, Safety, Therapeutic Exercise, Transfers Treatment Duration: Feb 13, 2020 Frequency: At least 5 of 7 days/Wk (IRF) Estimated Hrs Per Day: 1.5 hours per day Patient and/or Family Agrees t: Yes Safety Risks/Education Patient Education: Gait Training, Transfer Techniques, Correct Positioning, W/C Management, Disease Process, Safety Issues Teaching Recipient: Patient Teaching Methods: Demonstration, Discussion Response to Teaching: Verbalize Understanding, Return Demonstration, Reinforcement Needed Time/GCodes Time In: 1000 Time Out: 1100 Total Billed Treatment Time: 60 Total Billed Treatment 1,GT15m,FA20m,EX25m KULWINDER LOPEZ DESK OPERATOR Jan 25, 2020 10:59
--- NOTE | 2020-01-25 11:37 | Speech Therapy Daily Note ---
Speech Daily Progress Note Subjective Date Seen by Provider: Jan 25, 2020 Time Seen by Provider: 09:15 Patient was alert, upbeat, and cooperative for all therapy tasks. Patient reported that he did not sleep well last night and feeling very fatigued. Patient sat upright in his chair for the duration of treatment. Objective Patient completed word-finding tasks pertaining to category members with 75% accuracy. Patient completed memory tasks pertaining to internal and external strategies with 80% accuracy with moderate cues. Assessment Assessment Current Status: Good Progress Treatment Plan Continue Plan of Care Speech Short Term Goals Short Term Goals Short Term Goals 1. The patient will complete memory tasks at 90% accuracy with minimal cues. 2. The patient will complete problem-solving tasks at 90% accuracy with minimal cues. 3. The patient will complete safety awareness tasks at 90% accuracy with minimal cues. 4. The patient will complete word-finding tasks at 90% accuracy with minimal cues. Speech [place] Goals Nursing Home Goals Patient will improve cognitive-communication necessary for safety and daily living tasks with minimal assist. Speech-Plan Patient/Family Goals Patient/Family Goals: Patient reported that he wishes to return home to prior level of mobility and independence. Treatment Plan Speech Therapy Treatment Plan: Continue Plan of Care Treatment Duration: Feb 01, 2020 Frequency: 4 times per week (4-5x's per week) Estimated Hrs Per Day: .5 hour per day Rehab Potential: Fair Barriers to Learning: Moderate cognitive deficits Pt/Family Agrees to Plan: Yes Safety Risks/Education Teaching Recipient: Patient Teaching Methods: Demonstration, Discussion Response to Teaching: Verbalize Understanding Education Topics Provided: Utilization of external and internal strategies to recall important information Time Speech Therapy Time In: 09:15 Speech Therapy Time Out: 10:00 Total Billed Time: 45 Billed Treatment Time 1DAHLIA BETHANIA ST Jan 25, 2020 11:37
--- NOTE | 2020-01-25 12:03 | PM&R Progress Note ---
Subjective HPI/CC On Admission Date Seen by Provider: Jan 25, 2020 Time Seen by Provider: 06:00 Subjective/Events-last exam Incontinent of bowel and bladder last night frustrates him Will have an appointment at orthopedics on the 01/29/20 Removed guru yesterday every other and Tuesday will remove the rest Outpatient wound care for heel is recommended Declines to use the heel boots Oxycodone is helping the pain Reviewed therapy notes Checked meds and labs Conferred with ballast cleaning machine operator of Systems General: Fatigue Genitourinary: Incontinence Musculoskeletal: leg pain Objective Exam Vital Signs Vital Signs Date Time Temp Pulse Resp B/P (MAP) Pulse Ox O2 Delivery O2 Flow Rate FiO2 01/25/20 15:22 Room Air 01/25/20 08:37 93 01/25/20 05:58 37.0 84 20 135/87 (103) Capillary Refill : Less Than 3 SecondsLess Than 3 Seconds General Appearance: No Apparent Distress, WD/WN, Anxious, Chronically ill HEENT: PERRL/EOMI, Normal ENT Inspection, Pharynx Normal Neck: Full Range of Motion, Normal Inspection, Non Tender, Supple, Carotid Bruit Respiratory: Chest Non Tender, Lungs Clear, No Accessory Muscle Use, No Respiratory Distress, Decreased Breath Sounds Cardiovascular: Regular Rate, Rhythm, No Gallop, No JVD, No Murmur, Normal Peripheral Pulses Gastrointestinal: Normal Bowel Sounds, No Organomegaly, No Pulsatile Mass, Non Tender, Soft Back: Normal Inspection, No CVA Tenderness, No Vertebral Tenderness Extremity: Normal Capillary Refill, Normal Inspection, Normal Range of Motion (limited ROM right leg), Non Tender, No Calf Tenderness, Pedal Edema Neurologic/Psychiatric: Alert, Oriented x3, No Motor/Sensory Deficits, Normal Mood/Affect, hat conditioner II-XII Norm as Tested, Motor Weakness (right sided chronic) Skin: Normal Color, Warm/Dry Lymphatic: No Adenopathy Results/Procedures Lab Patient resulted labs reviewed. FIM Transfers Therapy Code Descriptions/Definitions Functional [place] Measure: 0=Not Assessed/NA 4=Minimal Assistance 1=Total Assistance 5=Supervision or Setup 2=Maximal Assistance 6=Modified [place] 3=Moderate Assistance 7=Complete IndependenceSCALE: Activities may be completed with or without assistive devices. 8-Smuzanldds-scfwfjf completes the activity by him/herself with no assistance from a helper. 5-Set-up or Clean-up Assistance-helper sets up or cleans up; patient completes activity. [place] assists only prior to or following the activity. 4-Supervision or Touching Assistance-helper provides verbal cues and/or touching/steadying and/or contact guard assistance as patient completes activity. Assistance may be provided throughout the activity or intermittently. 3-Partial/Moderate Assistance-helper does LESS THAN HALF the effort. [place] lifts, holds or supports trunk or limbs, but provides less than half the effort. 2-Substantial/Maximal Assistance-helper does MORE THAN HALF the effort. [place] lifts or holds trunk or limbs and provides more than half the effort. 5-Gksuffmbt-mvcgkd does ALL the effort. Patient does none of the effort to complete the activity. Or, the assistance of 2 or more helpers is required for the patient to complete the activity. If activity was not attempted, code reason: 7-Patient Refused. 9-Not Applicable-not attempted and the patient did not perform the activity before the current illness, exacerbation or injury. 10-Not Attempted due to Environmental Limitations-(lack of equipment, weather restraints, etc.). 88-Not Attempted due to Medical Conditions or Safety Concerns. Roll Left to Right (QC): 3 Sit to Lying (QC): 3 Sit to Stand (QC): 4 Chair/Pkr-fp-Zbajc Xfer(QC): 3 Car Transfer (QC): 3 Gait Training Does the Patient Walk?: Yes Distance: 20' Walk 10 feet (QC): 4 Walk 50 ft with 2 Turns(QC): 4 Walk 150 ft (QC): 88 Walking 10ft/uneven surface-QC: 88 Gait Persons Needed: 1 Gait Assistive Device: Walker Haresh Wheelchair Training Does the Pt Use a Wheelchair?: Yes Distance: 150' Wheel 50 ft with 2 turns (QC): 5 Wheel 150 ft (QC): 5 Type of Wheelchair: Manual Stair Training 1 Step (curb) (QC): 88 4 Steps (QC): 88 12 Steps (QC): 88 Balance Picking up an Object (QC): 88 ADL-Treatment Eating (QC): 6 Oral Hygiene (QC): 7 Shower/Bathe Self (QC): 2 (max A on this date with assist underarms, back, BLE, and bottom. Takes skill of two therapists to complete 10 min stance for LB wash/ dressing.) Upper Body Dressing (QC): 6 Lower Body Dressing (QC): 3 (min A- cues for use of pin inserter and dressing R leg first (did not carry over from yesterday's tx)) On/Off Footwear (QC): 2 (max A- pt able to complete L sock with sock aide with min AACE bandage rewrapped post-feet cleaning. Heel avoided due to pressure. Sock donned with TD) Toileting Hygiene (QC): 4 (Pt completes BSC transfer with CGA, use of haresh cane, BSC placed to L side of bed. Pt completes BM. CGA in stance post-BM, able to complete with s/u for wipes) Toilet Transfer (QC): 4 (CGA and cues for positioning) Assessment/Plan Assessment and Plan Assess & Plan/Chief Complaint Assessment: s/p right hip fracture FUO at [facility] completing abx 6 more days IV h/o CVA with right sided weakness HTN DM HTN CRI Entercolitis Plan: IRF protocol Bladder and bowel management Manage incontinence Pain control Complete IV abx (1) Hip fracture (2) History of CVA with residual deficit (3) Right sided weakness (4) Hypertension (5) Diabetes (6) Hyperlipemia (7) Renal insufficiency (8) Anemia (9) Ileus (10) Colonic obstruction (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
--- NOTE | 2020-01-25 14:34 | Therapy Group Daily Note ---
Therapy Daily Group Note Patient Education Topic Home Safety, Exercises, Other List Below (safe home exercise ideas) Exercises LE Seated Exercise, UE Exercise Session Ratio (pt:therapist): 4:1 Goal of Session: Education on ARU Expectations, UE/LE Strengthing, Other (list) (demonstration of ways to exercise safely at home) Goal Met for this Session: Yes Pt Benefit of Group: F/U Use of Strategies @Home, Socialization Other/Notes Pt. participated in group PT OT session. Pt. came and went via w/c and assist. Pt. was social, introducing himself and sharing a bit about his career. Pts we re educated in ARU practices and expectations . Pts all participated in seated U&L extremity exercises using for instance a can of vegetables, a rubber band and sponges for resistance. Standing Exercise at counter top was demonstrated as well. Pt to room after Rx with assist to bed , rao at hand. Start Time: 13:00 Stop Time: 14:10 Total Billed Treatment Time: 70 Total Billed Treatment 1,GRP KULWINDER LOPEZ CLAIM CLINICIAN Jan 25, 2020 14:34
[2020-01-25 17:00] VITALS: BP 150/92
[2020-01-25] MEDS: MELATONIN 3 MG TABLET PO PRN (20:23)
[2020-01-26] MEDS: KCL 10 MEQ TAB (MICRO K) PO SCH (05:43)
[2020-01-26] MEDS: CATHETER FLUSH 10 ML SYR IV SCH ×3 (05:44→21:03)
[2020-01-26] MEDS: metroNIDAZOLE 500MG/100ML IVPB 100 ML IV SCH ×3 (05:44→22:09)
[2020-01-26 06:09] VITALS: BP 165/91
[2020-01-26 08:00] VITALS: BP 144/83
[2020-01-26 08:36] LABS: BASOPHILS # (AUTO) 0.1 10^3/uL (0.0-0.1); BASOPHILS % (AUTO) 1 % (0-10); EOSINOPHILS # (AUTO) 0.2 10^3/uL (0.0-0.3); EOSINOPHILS % (AUTO) 2 % (0-10); HEMATOCRIT 33 % (40-54); HEMOGLOBIN 10.6 G/DL (13.3-17.7); LYMPHOCYTES # (AUTO) 1.1 X 10^3 (1.0-4.0); LYMPHOCYTES % (AUTO) 12 % (12-44); MEAN CORPUSCULAR HEMOGLOBIN 29 PG (25-34); MEAN CORPUSCULAR HGB CONC 32 G/DL (32-36); MEAN CORPUSCULAR VOLUME 90 FL (80-99); MEAN PLATELET VOLUME 8.3 FL (7.4-10.4); MONOCYTES # (AUTO) 0.7 X 10^3 (0.0-1.0); MONOCYTES % (AUTO) 8 % (0-12); NEUTROPHILS # (AUTO) 7.3 X 10^3 (1.8-7.8); NEUTROPHILS % (AUTO) 78 % (42-75); PLATELET COUNT 480 10^3/uL (130-400); RED CELL DISTRIBUTION WIDTH 14.9 % (10.0-14.5); WHITE BLOOD COUNT 9.4 10^3/uL (4.3-11.0)
[2020-01-26 09:05] LABS: ALBUMIN 3.4 GM/DL (3.2-4.5); BILIRUBIN,TOTAL 0.5 MG/DL (0.1-1.0); CALCIUM 8.6 MG/DL (8.5-10.1); CREATININE SERUM 1.56 MG/DL (0.60-1.30); POTASSIUM 4.1 MMOL/L (3.6-5.0); TOTAL PROTEIN 6.8 GM/DL (6.4-8.2)
--- NOTE | 2020-01-26 09:07 | Physical Therapy Daily Note ---
PT Daily Note-Current Subjective Agrees to PT. Reports he is happy to have therapy today. denies pain. Pain Numeric Pain Scale: 0-No Pain Mental Status Patient Orientation: Person, Place, Time, Situation Transfers SCALE: Activities may be completed with or without assistive devices. 1-Goextcoslh-wonnsie completes the activity by him/herself with no assistance from a helper. 5-Set-up or Clean-up Assistance-helper sets up or cleans up; patient completes activity. [place] assists only prior to or following the activity. 4-Supervision or Touching Assistance-helper provides verbal cues and/or touching/steadying and/or contact guard assistance as patient completes activity. Assistance may be provided throughout the activity or intermittently. 3-Partial/Moderate Assistance-helper does LESS THAN HALF the effort. [place] lifts, holds or supports trunk or limbs, but provides less than half the effort. 2-Substantial/Maximal Assistance-helper does MORE THAN HALF the effort. [place] lifts or holds trunk or limbs and provides more than half the effort. 7-Rbramerei-xdncjf does ALL the effort. Patient does none of the effort to complete the activity. Or, the assistance of 2 or more helpers is required for the patient to complete the activity. If activity was not attempted, code reason: 7-Patient Refused. 9-Not Applicable-not attempted and the patient did not perform the activity before the current illness, exacerbation or injury. 10-Not Attempted due to Environmental Limitations-(lack of equipment, weather restraints, etc.). 88-Not Attempted due to Medical Conditions or Safety Concerns. Sit to Stand (QC): 3 (min to CGA with skilled cues for hand and foot placement 25% of the time. ) Chair/Vel-sz-Dbeky Xfer(QC): 3 (min assist for balacne) multiple sit to stand transfers and SPT performed during session. Weight Bearing Right Lower Extremity: Right Weight Bearing/Tolerated Left Lower Extremity: Left Full Weight Bearing Gait Training Does the Patient Walk?: Yes Distance: 70', 100', 100', 50' Walk 50 ft with 2 Turns(QC): 3 Gait Assistive Device: Walker Haresh Steppage gait with the right LE with knee either hyperextending or starting to buckle but able to control it. Step to with the left LE; CG-Min asssist for balance and safety but no LOB noted; limited quad control right LE but pt seems to manage it well. Wheelchair Training Does the Pt Use a Wheelchair?: Yes Wheel 50 ft with 2 turns (QC): 5 Wheel 150 ft (QC): 5 Type of Wheelchair: Manual WC mobility throughout the unit and outdoors with pt using left U/LE to propel with multiple turns, obstacle, forward and backing in lifelike situations. Pt completed with supervision. Exercises Seated Therapy Exercises: Ankle pumps, Long arc quads, Hip flexion LE ther ex as able on the right x 12 with assist as needed; to promote functional strength for transfers and mobility. Treatments Transfers, gait, wc mobiltiy and ther ex Assessment Current Status: Good Progress Pt is making funcitonal progress and did well with transfers and gait this date. Increased gait distance and ambulated withoutLOB noted. Pt is motivated and progrssing well. PT Short Term Goals Short Term Goals Time Frame: Jan 30, 2020 Roll Left & Right: 6 Sit to lyin Lying to sitting on side of be: 4 Sit to stand: 4 Chair/gkl-vg-oofxs transfer: 4 Walk 10 feet: 4 PT [facility] Goals Nursing Home Goals PT [employer] Goals Time Frame: Feb 13, 2020 Roll Left & Right (QC): 6 Sit to Lying (QC): 6 Lying-Sitting on Side/Bed(QC): 6 Sit to Stand (QC): 4 (SBA) Chair/Gru-cr-Qxkoj Xfer(QC): 4 (SBA) Toilet Transfer (QC): 4 (SBA) Car Transfer (QC): 4 (SBA) Does the Patient Walk: Yes Walk 10 feet (QC): 4 Walk 50ft with 2 Turns (QC): 4 Walking 10ft on Uneven Surface: 4 1 Step (curb) (QC): 4 PT Plan Problem List Problem List: Activity Tolerance, Functional Strength, Safety, Balance, Gait, Transfer, Bed Mobility Treatment/Plan Treatment Plan: Continue Plan of Care Treatment Plan: Bed Mobility, Education, Functional Activity Delmy, Functional Strength, Group Therapy, Gait, Safety, Therapeutic Exercise, Transfers Treatment Duration: Feb 13, 2020 Frequency: At least 5 of 7 days/Wk (IRF) Estimated Hrs Per Day: 1.5 hours per day Patient and/or Family Agrees t: Yes Safety Risks/Education Patient Education: Transfer Techniques, Safety Issues Time/GCodes Time In: 735 Time Out: 905 Total Billed Treatment Time: 90 Total Billed Treatment visit EX 15 WC 30 GT 30 FA 15 CHULA MULLEN PT Jan 26, 2020 09:07
[2020-01-26] MEDS: glipiZIDE 5 MG (GLUCOTROL) TAB PO SCH (09:31)
[2020-01-26] MEDS: MULTIVIT W/MINERALS TAB (THERAGRAN M) PO SCH (09:31)
[2020-01-26] MEDS: PANTOPRAZOLE 40 MG (PROTONIX) TAB PO SCH (09:31)
[2020-01-26] MEDS: meTOprolol TARTRATE 50 MG (LOPRESSOR) TAB PO SCH ×2 (09:31→20:55)
[2020-01-26] MEDS: CEFEPIME 1,000 MG/SWFI 10 ML IV PUSH IV SCH ×4 (09:34→20:50)
[2020-01-26] MEDS: CATHETER FLUSH 10 ML SYR IV PRN (09:34)
[2020-01-26] MEDS: ENOXAPARIN 40 MG/0.4 ML (LOVENOX) SYR SC SCH (09:34)
[2020-01-26] MEDS: DOCUSATE SODIUM 100 MG (COLACE) CAP PO SCH ×2 (09:35→21:01)
[2020-01-26] MEDS: BISACODYL 10 MG SUPP (DULCOLAX) RC SCH (09:35)
[2020-01-26] MEDS: polyethylene glycoL POWDER 17 GM (MIRALAX) PACK PO SCH ×2 (09:35→21:01)
[2020-01-26] MEDS: SENNA W/DOCUSATE (SENOKOT S) TABLET PO SCH ×2 (09:35→21:02)
[2020-01-26] MEDS: amLODIPine 5 MG (NORVASC) TAB PO SCH (09:49)
--- NOTE | 2020-01-26 10:18 | Occupational Ther Daily Note ---
OT Current Status-Daily Note Subjective Pt sitting in recliner at start of session, he denied having any pain. Pt agreed to OT tx with focus on ADLs. ADL-Treatment Therapy Code Descriptions/Definitions Functional [place] Measure: 0=Not Assessed/NA 4=Minimal Assistance 1=Total Assistance 5=Supervision or Setup 2=Maximal Assistance 6=Modified [place] 3=Moderate Assistance 7=Complete IndependenceSCALE: Activities may be completed with or without assistive devices. 9-Gonbfbjzsh-nshahxr completes the activity by him/herself with no assistance from a helper. 5-Set-up or Clean-up Assistance-helper sets up or cleans up; patient completes activity. [place] assists only prior to or following the activity. 4-Supervision or Touching Assistance-helper provides verbal cues and/or touching/steadying and/or contact guard assistance as patient completes activity. Assistance may be provided throughout the activity or intermittently. 3-Partial/Moderate Assistance-helper does LESS THAN HALF the effort. [place] lifts, holds or supports trunk or limbs, but provides less than half the effort. 2-Substantial/Maximal Assistance-helper does MORE THAN HALF the effort. [place] lifts or holds trunk or limbs and provides more than half the effort. 3-Qvkfnedxa-jhlerz does ALL the effort. Patient does none of the effort to complete the activity. Or, the assistance of 2 or more helpers is required for the patient to complete the activity. If activity was not attempted, code reason: 7-Patient Refused. 9-Not Applicable-not attempted and the patient did not perform the activity before the current illness, exacerbation or injury. 10-Not Attempted due to Environmental Limitations-(lack of equipment, weather restraints, etc.). 88-Not Attempted due to Medical Conditions or Safety Concerns. Eating (QC): 5 (Per pt report, he is able to open almost all containers by himself and complete eating. He needs assistance with salad dressing packets and other packets due to decreased functional use of right hand. ) Shower/Bathe Self (QC): 3 (Sponge bath: pt able to wash chest, abdomen, periarea, right arm, upper legs, and lower legs. He required assistance with washing left arm, and his feet. OT educated pt on using long handled sponge, and adaptive techniques to dry his lower legs.) Upper Body Dressing (QC): 3 (Pt able to doff shirt, he attempted to thread right arm into his shirt but ended up requiring assistance. He was then able to finish donning shirt without assistance.) Lower Body Dressing (QC): 2 (Pt attempted to don LE clothing with chlorobutadiene scrubber operator but required assistance threading BLE into underwear and RLE into pants. During stand, pt able to pull pants up on left side but required assistance with the right side due to fatigue.) On/Off Footwear: 2 (Pt doffed socks using sock aide. Pt attempted to don socks onto sockaide using left hand. The sock aide kept slipping so OT assisted pt with steading the aide, then he was able to thread sock onto aide. He was able to pull sock onto his left foot, required assistance with right due to pressure dressings. ) Other Treatment Pt seated in recliner, he completed sponge bath and dressing (see notes above). Pt required multiple rest breaks with task due to fatigue. Nursing present to give pt meds, he was able to take meds with his water without assistance. Pt then completed a functional, fine motor activity in order to increase endurance with tasks, he completed 1" pegboard, placing and removing x90 pegs with LUE, requiring 1 rest break with task. Pt reports he is very tired after OT session, requesting to go back to bed. OT assisted pt from recliner to bed with mod A, pt using hemicane. Noted his knee wanted to buckle multiple times during transfer. Pt sat EOB, then he was able to scoot himself up close to HOB. Pt required assistance lifting right leg into bed. Post OT session, pt laying in bed, call light in reach and all needs met. Education OT Patient Education: Correct positioning, Energy conservation, Modified ADL techniques, Progress toward Goal/Update tx plan, Purpose of tx/functional activities, Transfer techniques Teaching Recipient: Patient Teaching Methods: Discussion Response to Teaching: Verbalize Understanding OT Short Term Goals Short Term Goals Time Frame: Jan 30, 2020 Oral hygiene: 6 Lower body dressin Putting on/taking off footwear: 3 OT Intermediate Goals Air Motor Repairer Goals Time Frame: Feb 06, 2020 Eating (QC): 6 Oral Hygiene (QC): 6 Toileting Hygiene (QC): 6 Shower/Bathe Self (QC): 6 Upper Body Dressing (QC): 6 Lower Body Dressing (QC): 6 On/Off Footwear (QC): 6 Additional Goals: 1-Demonstrate ADL Tasks, 2-Verbalize Understanding, 3-ImproveStrength/Delmy 1=Demonstrate adherence to instructed precautions during ADL tasks. 2=Patient will verbalize/demonstrate understanding of assistive devices/modifications for ADL. 3=Patient will improve strength/tolerance for activity to enable patient to perform ADL's. OT Education/Plan Problem List/Assessment Assessment: Decreased Activ Tolerance, Decreased UE Strength, Impaired Bed Mobility, Impaired Funct Balance, Impaired I ADL's, Impaired Self-Care Skills Discharge Recommendations Plan/Recommendations: Continue POC Treatment Plan/Plan of Care Patient would benefit from OT for education, treatment and training to promote independence in ADL's, mobility, safety and/or upper extremity function for ADL's. Plan of Care: ADL Retraining, Caregiver Training, Functional Mobility, Group Exercise/Act as Ind, Orthotic Fitting/Training, UE Funct Exercise/Act, UE Neuromus Re-Ed/Coord, W/C Management Training Treatment Duration: Feb 06, 2020 Frequency: At least 5 of 7 days/Wk (IRF) Estimated Hrs Per Day: 1.5 hours per day Agreement: Yes Rehab Potential: Fair Time/GCodes Start Time: 09:05 Stop Time: 10:35 Total Time Billed (hr/min): 90 Billed Treatment Time 1, ADL 4 (60'), FA 2 (30') DOMINICK RILEY OT Jan 26, 2020 10:18
--- NOTE | 2020-01-26 11:00 | NUR ---
THE LAST OF THE BILLY OF RIGHT HIP INCISION REMOVED BY Bhavani ALONZO RN AND STERI STRIPS APPLIED.
--- NOTE | 2020-01-26 14:02 | PM&R Progress Note ---
Subjective HPI/CC On Admission Date Seen by Provider: Jan 26, 2020 Time Seen by Provider: 06:00 Subjective/Events-last exam Incontinent of bowel and bladder is embarrassing for him he reports Will go to appointment at orthopedics on the 01/29/20 Removed guru the rest today Outpatient wound care for heel is recommended Declines to use the heel boots Oxycodone is helping the pain Labs reviewed, creat 1.57 but that is his baseline Reviewed therapy notes Checked meds and labs Conferred with commissioner of relocation services of Systems General: Fatigue Genitourinary: Incontinence Objective Exam Vital Signs Vital Signs Date Time Temp Pulse Resp B/P (MAP) Pulse Ox O2 Delivery O2 Flow Rate FiO2 01/26/20 09:00 Room Air 01/26/20 06:09 37.0 77 20 165/91 (115) 96 Capillary Refill : Less Than 3 SecondsLess Than 3 Seconds General Appearance: No Apparent Distress, WD/WN, Anxious, Chronically ill HEENT: PERRL/EOMI, Normal ENT Inspection, Pharynx Normal Neck: Full Range of Motion, Normal Inspection, Non Tender, Supple, Carotid Bruit Respiratory: Chest Non Tender, Lungs Clear, No Accessory Muscle Use, No Respiratory Distress, Decreased Breath Sounds Cardiovascular: Regular Rate, Rhythm, No Gallop, No JVD, No Murmur, Normal Peripheral Pulses Gastrointestinal: Normal Bowel Sounds, No Organomegaly, No Pulsatile Mass, Non Tender, Soft Back: Normal Inspection, No CVA Tenderness, No Vertebral Tenderness Extremity: Normal Capillary Refill, Normal Inspection, Normal Range of Motion (limited ROM right leg), Non Tender, No Calf Tenderness, Pedal Edema Neurologic/Psychiatric: Alert, Oriented x3, No Motor/Sensory Deficits, Normal Mood/Affect, shuttle repairer II-XII Norm as Tested, Motor Weakness (right sided chronic) Skin: Normal Color, Warm/Dry Lymphatic: No Adenopathy Results/Procedures Lab Laboratory Tests 01/26/20 08:26 Patient resulted labs reviewed. FIM Transfers Therapy Code Descriptions/Definitions Functional [place] Measure: 0=Not Assessed/NA 4=Minimal Assistance 1=Total Assistance 5=Supervision or Setup 2=Maximal Assistance 6=Modified [place] 3=Moderate Assistance 7=Complete IndependenceSCALE: Activities may be completed with or without assistive devices. 7-Xxvkmpbbel-pzbywch completes the activity by him/herself with no assistance from a helper. 5-Set-up or Clean-up Assistance-helper sets up or cleans up; patient completes activity. [place] assists only prior to or following the activity. 4-Supervision or Touching Assistance-helper provides verbal cues and/or touching/steadying and/or contact guard assistance as patient completes activity. Assistance may be provided throughout the activity or intermittently. 3-Partial/Moderate Assistance-helper does LESS THAN HALF the effort. [place] lifts, holds or supports trunk or limbs, but provides less than half the effort. 2-Substantial/Maximal Assistance-helper does MORE THAN HALF the effort. [place] lifts or holds trunk or limbs and provides more than half the effort. 1-Edlyldyrb-rimbjp does ALL the effort. Patient does none of the effort to complete the activity. Or, the assistance of 2 or more helpers is required for the patient to complete the activity. If activity was not attempted, code reason: 7-Patient Refused. 9-Not Applicable-not attempted and the patient did not perform the activity before the current illness, exacerbation or injury. 10-Not Attempted due to Environmental Limitations-(lack of equipment, weather restraints, etc.). 88-Not Attempted due to Medical Conditions or Safety Concerns. Roll Left to Right (QC): 3 Sit to Lying (QC): 3 Sit to Stand (QC): 3 (min to CGA with skilled cues for hand and foot placement 25% of the time. ) Chair/Gvk-ts-Htdwa Xfer(QC): 3 (min assist for balacne) Car Transfer (QC): 3 Gait Training Does the Patient Walk?: Yes Distance: 70', 100', 100', 50' Walk 10 feet (QC): 4 Walk 50 ft with 2 Turns(QC): 3 Walk 150 ft (QC): 88 Walking 10ft/uneven surface-QC: 88 Gait Persons Needed: 1 Gait Assistive Device: Walker Haresh Wheelchair Training Does the Pt Use a Wheelchair?: Yes Distance: 150' Wheel 50 ft with 2 turns (QC): 5 Wheel 150 ft (QC): 5 Type of Wheelchair: Manual Stair Training 1 Step (curb) (QC): 88 4 Steps (QC): 88 12 Steps (QC): 88 Balance Picking up an Object (QC): 88 ADL-Treatment Eating (QC): 5 (Per pt report, he is able to open almost all containers by himself and complete eating. He needs assistance with salad dressing packets and other packets due to decreased functional use of right hand. ) Oral Hygiene (QC): 7 Shower/Bathe Self (QC): 3 (Sponge bath: pt able to wash chest, abdomen, periarea, right arm, upper legs, and lower legs. He required assistance with washing left arm, and his feet. OT educated pt on using long handled sponge, and adaptive techniques to dry his lower legs.) Upper Body Dressing (QC): 3 (Pt able to doff shirt, he attempted to thread right arm into his shirt but ended up requiring assistance. He was then able to finish donning shirt without assistance.) Lower Body Dressing (QC): 2 (Pt attempted to don LE clothing with project manager entertainment and media but required assistance threading BLE into underwear and RLE into pants. During stand, pt able to pull pants up on left side but required assistance with the right side due to fatigue.) On/Off Footwear (QC): 2 (Pt doffed socks using sock aide. Pt attempted to don socks onto sockaide using left hand. The sock aide kept slipping so OT assisted pt with steading the aide, then he was able to thread sock onto aide. He was able to pull sock onto his left foot, required assistance with right due to pressure dressings. ) Toileting Hygiene (QC): 4 (Pt completes BSC transfer with CGA, use of haresh cane, BSC placed to L side of bed. Pt completes BM. CGA in stance post-BM, able to complete with s/u for wipes) Toilet Transfer (QC): 4 (CGA and cues for positioning) Assessment/Plan Assessment and Plan Assess & Plan/Chief Complaint Assessment: s/p right hip fracture FUO at [facility] completing abx IV h/o CVA with right sided weakness HTN DM HTN CRI Entercolitis Plan: IRF protocol Bladder and bowel management Manage incontinence Pain control Complete IV abx (1) Hip fracture (2) History of CVA with residual deficit (3) Right sided weakness (4) Hypertension (5) Diabetes (6) Hyperlipemia (7) Renal insufficiency (8) Anemia (9) Ileus (10) Colonic obstruction (11) [place]'s syndrome (12) GI bleed (13) Edema (14) Enterocolitis (15) FUO (fever of unknown origin) MARTIN JIM DO Jan 26, 2020 14:02
[2020-01-26 16:00] VITALS: BP 122/79
--- NOTE | 2020-01-26 19:22 | NUR ---
bedside report received from JOSE L GONZALEZ, assume care of pt
[2020-01-26 20:45] VITALS: BP 132/86
--- NOTE | 2020-01-26 20:50 | NUR ---
pt refused Colace, miralax & Senokot , took Benadryl 25mg for allergies
[2020-01-26] MEDS: diphenhydrAMINE 25 MG TAB (BENADRYL) PO PRN (21:00)
[2020-01-27] MEDS: metroNIDAZOLE 500MG/100ML IVPB 100 ML IV SCH ×3 (06:04→22:00)
[2020-01-27] MEDS: CATHETER FLUSH 10 ML SYR IV SCH ×3 (06:04→22:29)
[2020-01-27] MEDS: KCL 10 MEQ TAB (MICRO K) PO SCH (06:09)
[2020-01-27 06:13] VITALS: BP 146/87
--- NOTE | 2020-01-27 08:00 | NUR ---
CONTINUES TO HAVE LOOSE STOOLS, BUT PATIENT STATES IT IS IMPROVED. STOOL THIS AM HAD GREEN BEANS IN IT FROM SUPPER LAST NIGHT. DENIES PAIN.
[2020-01-27] MEDS ORDERED: VITAMIN D2 1.25 MG (50,000 UNITS) CAP PO SCH ×2 (09:00→09:30)
[2020-01-27] MEDS: amLODIPine 5 MG (NORVASC) TAB PO SCH (09:14)
[2020-01-27] MEDS: glipiZIDE 5 MG (GLUCOTROL) TAB PO SCH (09:14)
[2020-01-27] MEDS: MULTIVIT W/MINERALS TAB (THERAGRAN M) PO SCH (09:15)
[2020-01-27] MEDS: PANTOPRAZOLE 40 MG (PROTONIX) TAB PO SCH (09:15)
[2020-01-27] MEDS: meTOprolol TARTRATE 50 MG (LOPRESSOR) TAB PO SCH ×2 (09:15→20:19)
[2020-01-27] MEDS: polyethylene glycoL POWDER 17 GM (MIRALAX) PACK PO SCH ×2 (09:17→22:28)
[2020-01-27] MEDS: DOCUSATE SODIUM 100 MG (COLACE) CAP PO SCH ×2 (09:17→22:28)
[2020-01-27] MEDS: SENNA W/DOCUSATE (SENOKOT S) TABLET PO SCH ×2 (09:18→22:29)
[2020-01-27] MEDS: BISACODYL 10 MG SUPP (DULCOLAX) RC SCH (09:18)
[2020-01-27] MEDS: ENOXAPARIN 40 MG/0.4 ML (LOVENOX) SYR SC SCH (09:21)
[2020-01-27] MEDS: CEFEPIME 1,000 MG/SWFI 10 ML IV PUSH IV SCH ×4 (09:22→20:19)
[2020-01-27] MEDS: CATHETER FLUSH 10 ML SYR IV PRN (09:28)
--- NOTE | 2020-01-27 16:21 | Consultation - Surgery ---
[facility] 01/27/20 1621: History of Present Illness History of Present Illness Patient Consulted On(torres/time) 01/27/20 16:13 Date Seen by Provider: Jan 27, 2020 Time Seen by Provider: 15:30 Reason for Visit: Right Hip Wound History of Present Illness Ash is a 64 year old man recovering from recent right hip fracture and repair. General Surgery was consulted by Dr. Najma Foreman to inspect and evaluate right hip incision. The patient is alert and oriented and in no acute distress. Right hip had final guru removed today. The incision is well approximated with no discharge. The surround tissue is slightly edematous with increased intensity located over the IT Band. The patient is not on pain medication and denies any pain at this time. The patient has been placing weight on it while performing PT tasks and has not noticed any changes. Allergies and Home Medications Allergies Coded Allergies: No Known Drug Allergies (Unverified , 01/21/17) Home Medications Acetaminophen 325 Mg Tablet, 650 MG PO Q6H PRN for PAIN-MILD (1-4), (Reported) Albuterol Sulfate 2.5 Mg/3 Ml Vial.neb, 2.5 MG INH Q6H PRN for SOA OR WHEEZING, (Reported) Amlodipine Besylate 10 Mg Tablet, 10 MG PO DAILY, (Reported) Atorvastatin Calcium 40 Mg Tablet, 40 MG PO HS, (Reported) Bisacodyl 10 Mg Supp.rect, 10 MG RC DAILY, (Reported) Ceftazidime in Dextrose5%Water 1 Gm/50 Ml Piggyback, 1 GM IV Q8H, (Reported) Cyclobenzaprine HCl 10 Mg Tablet, 10 MG PO TID PRN for SPASMS, (Reported) Enoxaparin Sodium 30 Mg/0.3 Ml Syringe, 30 MG SQ Q12H, (Reported) Glipizide 5 Mg Tablet, 5 MG PO DAILY, (Reported) Metoprolol Tartrate 50 Mg Tablet, 50 MG PO BID, (Reported) Metronidazole/Sodium Chloride 500 Mg/100 Ml Piggyback, 500 MG IV Q8H, (Reported) Multivits,Ca,Minerals/Iron/FA 1 Each Tablet, 1 EACH PO DAILY, (Reported) Oxycodone HCl 5 Mg Tablet, 10 MG PO Q6H PRN for PAIN-SEVERE (8-10), (Reported) Pantoprazole Sodium 40 Mg Tablet.dr, 40 MG PO DAILY, (Reported) Polyethylene Glycol 3350 17 Gm Powd.pack, 17 GM PO DAILY PRN for CONSTIPATION- 2ND LINE, (Reported) Sennosides/Docusate Sodium 1 Each Tablet, 1 EACH PO Q12H PRN for CONSTIPATION- 1ST LINE, (Reported) [Ergocalciferol] , 50,000 UNITS PO Q7DAYS, (Reported) Past Xbyibly-Zmmyrb-Ibjxok Hx Patient Social History Alcohol Use: Denies Use Smoking Status: Never a Smoker Recent Foreign Travel: No Contact w/Someone Who Travel: No Recent Infectious Disease Expo: No Recent Hopitalizations: Yes ([facility] RIGHT HIP FX. ) Immunizations Up To Date PED Vaccines UTD: No Date of Pneumonia Vaccine: Jan 11, 2020 Date of Influenza Vaccine: Jan 11, 2020 Seasonal Allergies Seasonal Allergies: No Surgeries History of Surgeries: Yes (RIGHT HIP, BLADDER CA REMOVAL, COLONOSCOPY) Surgeries: Bladder Surgery Respiratory History of Respiratory Disorde: No Cardiovascular History of Cardiac Disorders: Yes Cardiac Disorders: High Cholesterol, Hypertension Neurological History of Neurological Disord: Yes (CVA 2016) Neurological Disorders: Stroke Genitourinary History of Genitourinary Disor: Yes (STAGE 3 KIDNEY DX. ) Genitourinary Disorders: Bladder Infection, Renal Failure Gastrointestinal History of Gastrointestinal Di: No (ILEUS) Gastrointestinal Disorders: Gastrointestinal Bleed, Obstructive Bowel, Chronic Constipation Musculoskeletal History of Musculoskeletal Dis: Yes (RIGHT KNEE ARTHRITIS; RIGHT FOOT DROP FROM THE CVA. ) Musculoskeletal Disorders: Foot Drop Endocrine History of Endocrine Disorders: Yes Endocrine Disorders: Diabetes, Non-Insulin dep HEENT History of HEENT Disorders: No Cancer History of Cancer: Yes Cancer: Bladder Psychosocial History of Psychiatric Problem: No Integumentary History of Skin or Integumenta: No Blood Transfusions History of Blood Disorders: No Family Medical History Family Medial History: Cataracts 19 MOTHER Dementia 19 MOTHER Review of Systems-General Constitutional: no symptoms reported EENTM: no symptoms reported Respiratory: no symptoms reported Cardiovascular: no symptoms reported Gastrointestinal: no symptoms reported Genitourinary: no symptoms reported Musculoskeletal: no symptoms reported Skin: no symptoms reported Psychiatric/Neurological: No Symptoms Reported Physical Exam-General Problems Physical Exam Vital Signs Vital Signs - First Documented 01/22/20 18:00 Temp 36.8 Pulse 96 Resp 16 B/P (MAP) 149/85 (106) Pulse Ox 97 O2 Delivery Room Air Capillary Refill : Less Than 3 SecondsLess Than 3 Seconds General Appearance: WD/WN, no apparent distress HEENT: PERRL/EOMI; No scleral icterus (R), No scleral icterus (L) Neck: non-tender, full range of motion Respiratory: chest non-tender, no respiratory distress, no accessory muscle use Cardiovascular: normal peripheral pulses (2/4 radila pulse, 1/4 on dorsal pedial pulse on right do to minor swelling that has imporved. 2/4 on left dorsal pedial pulse. ) Extremities: no calf tenderness, pedal edema (minor on right leg), other (Pt has decreased strength on right side of body due to CVA) Neurologic/Psychiatric: alert, normal mood/affect, oriented x 3 Skin: normal color (Right hip has normal progression of healing with bruise in stage 4 (yellowing) of surround skin on right hip) Lymphatic: no adenopathy Data Review Labs Laboratory Tests 01/27/20 05:24: Glucometer 140H Assessment/Plan Assessment/Plan Assessment/Plan Post Right hip fracture Possible hematoma Patients right hip fracture is well approximated and non tender to palpation. The patient is currently not on pain medication and is tolerating PT well. The surrounding skin on right hip incision has minor erythema and stage 4 bruising. Minor swelling noted with increase tissue along the IT band. The incision line is pink and without discharge. Will continue to monitor for possible hematoma, we have outlined the wound and will continue to follow. The patient is finishing up last dose of cefepime and will monitor for possible cellulitis. Thank you for consult.Please call if there is any questions. Will continue to monitor. Clinical Quality Measures DVT/VTE Risk/Contraindication: Risk Factor Score Per Nursin RFS Level Per Nursing on Admit: 4+=Very High ERICH MENESES DO 01/27/20 7278: History of Present Illness History of Present Illness History of Present Illness 64r year old male in rehab unit after right femur fracture and right partial hip replacement. Patient has had guru removed. He has noticed slight increasing tightness around the incision and erythema around the incision. He has been moving the leg around more and feels this may be making it be more swollen. Nothing really making better. Not really having any pain. Denies n/v fever sweats chills shortness of breath or chest pain. Allergies and Home Medications Allergies Coded Allergies: No Known Drug Allergies (Unverified , 01/21/17) Home Medications Acetaminophen 325 Mg Tablet, 650 MG PO Q6H PRN for PAIN-MILD (1-4), (Reported) Albuterol Sulfate 2.5 Mg/3 Ml Vial.neb, 2.5 MG INH Q6H PRN for SOA OR WHEEZING, (Reported) Amlodipine Besylate 10 Mg Tablet, 10 MG PO DAILY, (Reported) Atorvastatin Calcium 40 Mg Tablet, 40 MG PO HS, (Reported) Bisacodyl 10 Mg Supp.rect, 10 MG RC DAILY, (Reported) Ceftazidime in Dextrose5%Water 1 Gm/50 Ml Piggyback, 1 GM IV Q8H, (Reported) Cyclobenzaprine HCl 10 Mg Tablet, 10 MG PO TID PRN for SPASMS, (Reported) Enoxaparin Sodium 30 Mg/0.3 Ml Syringe, 30 MG SQ Q12H, (Reported) Glipizide 5 Mg Tablet, 5 MG PO DAILY, (Reported) Metoprolol Tartrate 50 Mg Tablet, 50 MG PO BID, (Reported) Metronidazole/Sodium Chloride 500 Mg/100 Ml Piggyback, 500 MG IV Q8H, (Reported) Multivits,Ca,Minerals/Iron/FA 1 Each Tablet, 1 EACH PO DAILY, (Reported) Oxycodone HCl 5 Mg Tablet, 10 MG PO Q6H PRN for PAIN-SEVERE (8-10), (Reported) Pantoprazole Sodium 40 Mg Tablet.dr, 40 MG PO DAILY, (Reported) Polyethylene Glycol 3350 17 Gm Powd.pack, 17 GM PO DAILY PRN for CONSTIPATION- 2ND LINE, (Reported) Sennosides/Docusate Sodium 1 Each Tablet, 1 EACH PO Q12H PRN for CONSTIPATION- 1ST LINE, (Reported) [Ergocalciferol] , 50,000 UNITS PO Q7DAYS, (Reported) Patient Home Medication List Home Medication List Reviewed: Yes Past Hieyjai-Pjylar-Ukxnjg Hx Reviewed Nursing Assessment Reviewed/Agree w Nursing PMH: Yes Family Medical History Significant Family History: No Pertinent Family Hx Family Medial History: Cataracts 19 MOTHER Dementia 19 MOTHER Review of Systems-General Constitutional: no symptoms reported; No chills, No diaphoresis EENTM: no symptoms reported; No ear pain, No blurred vision Respiratory: no symptoms reported; No cough, No dyspnea on exertion Cardiovascular: no symptoms reported; No chest pain, No edema Gastrointestinal: no symptoms reported; No constipation, No diarrhea, No dysphagia Genitourinary: no symptoms reported; No decreased output, No discharge Musculoskeletal: No back pain, No gout Skin: change in color (right thigh) Psychiatric/Neurological: Denies Anxiety, Denies Depressed Physical Exam-General Problems Physical Exam General Appearance: WD/WN, no apparent distress HEENT: PERRL/EOMI Neck: non-tender, full range of motion Respiratory: chest non-tender, no respiratory distress, no accessory muscle use Cardiovascular: normal peripheral pulses, regular rate, rhythm Gastrointestinal: non tender, soft Rectal: deferred Back: no CVA tenderness Extremities: other (Pt has decreased strength on right side of body due to CVA) Neurologic/Psychiatric: alert, normal mood/affect, oriented x 3 Skin: normal color (right hip with slight erythema and yelllowing around as well some induration around as well, likely bruising) Lymphatic: no adenopathy Assessment/Plan Assessment/Plan Assessment/Plan Patient with right femur fracuture and partial right hip replacement feel wound is likely bruising, will have outlined and monitored for infection no changes at this time, will follow. Supervisory-Addendum Brief Verification & Attestation Participated in pt care: history, MDM, physical Personally performed: exam, history, MDM, supervision of care Care discussed with: Medical Student Procedures: n/a Results interpretation: Verified all documentation Verification and Attestation of Medical Student E/M Service A medical student performed and documented this service in my presence. I reviewed and verified all information documented by the medical student and made modifications to such information, when appropriate. I personally performed the physical exam and medical decision making. Erich Meneses, Jan 27, 2020,17:44 [facility] Jan 27, 2020 16:21 ERICH MENESES DO Jan 27, 2020 17:39
--- NOTE | 2020-01-27 16:30 | NUR ---
DR. JIM WAS NOTIFIED OF INCREASED REDNESS AND FIRMNESS OF RIGHT HIP INCISION. DR. CHAVEZ WAS CONSULTED AND HERE TO SEE PATIENT. HE FEELS IT IS A HEMATOMA AND IT WAS OUTLINED WITH MARKER.
[2020-01-27 18:36] VITALS: BP 132/73
--- NOTE | 2020-01-27 18:55 | PM&R Progress Note ---
Subjective HPI/CC On Admission Date Seen by Provider: Jan 27, 2020 Time Seen by Provider: 12:15 Subjective/Events-last exam Using a type of condom catheter that his brought in to help with incontinence which [place] [id number] supplement restarted today All guru out now IV abx complete tomorrow Surgery was consulted for redness and puffiness to his incision and it does not appear to be anything of significance Reviewed therapy notes Checked meds and labs Conferred with supervisor edging of Systems General: Fatigue Genitourinary: Incontinence Objective Exam Vital Signs Vital Signs Date Time Temp Pulse Resp B/P (MAP) Pulse Ox O2 Delivery O2 Flow Rate FiO2 01/27/20 18:36 36.4 73 18 132/73 (92) 94 Room Air Capillary Refill : Less Than 3 SecondsLess Than 3 Seconds General Appearance: No Apparent Distress, WD/WN, Anxious, Chronically ill HEENT: PERRL/EOMI, Normal ENT Inspection, Pharynx Normal Neck: Full Range of Motion, Normal Inspection, Non Tender, Supple, Carotid Bruit Respiratory: Chest Non Tender, Lungs Clear, No Accessory Muscle Use, No Respiratory Distress, Decreased Breath Sounds Cardiovascular: Regular Rate, Rhythm, No Gallop, No JVD, No Murmur, Normal Peripheral Pulses Gastrointestinal: Normal Bowel Sounds, No Organomegaly, No Pulsatile Mass, Non Tender, Soft Back: Normal Inspection, No CVA Tenderness, No Vertebral Tenderness Extremity: Normal Capillary Refill, Normal Inspection, Normal Range of Motion (limited ROM right leg), Non Tender, No Calf Tenderness, Pedal Edema Neurologic/Psychiatric: Alert, Oriented x3, No Motor/Sensory Deficits, Normal Mood/Affect, paste mixer liquid II-XII Norm as Tested, Motor Weakness (right sided chronic) Skin: Normal Color, Warm/Dry Lymphatic: No Adenopathy Results/Procedures Lab Patient resulted labs reviewed. FIM Transfers Therapy Code Descriptions/Definitions Functional [place] Measure: 0=Not Assessed/NA 4=Minimal Assistance 1=Total Assistance 5=Supervision or Setup 2=Maximal Assistance 6=Modified [place] 3=Moderate Assistance 7=Complete IndependenceSCALE: Activities may be completed with or without assistive devices. 8-Oamnxkfytd-tzrrniz completes the activity by him/herself with no assistance from a helper. 5-Set-up or Clean-up Assistance-helper sets up or cleans up; patient completes activity. [place] assists only prior to or following the activity. 4-Supervision or Touching Assistance-helper provides verbal cues and/or touching/steadying and/or contact guard assistance as patient completes activity. Assistance may be provided throughout the activity or intermittently. 3-Partial/Moderate Assistance-helper does LESS THAN HALF the effort. [place] lifts, holds or supports trunk or limbs, but provides less than half the effort. 2-Substantial/Maximal Assistance-helper does MORE THAN HALF the effort. [place] lifts or holds trunk or limbs and provides more than half the effort. 6-Ahaasjvdu-jumbor does ALL the effort. Patient does none of the effort to complete the activity. Or, the assistance of 2 or more helpers is required for the patient to complete the activity. If activity was not attempted, code reason: 7-Patient Refused. 9-Not Applicable-not attempted and the patient did not perform the activity before the current illness, exacerbation or injury. 10-Not Attempted due to Environmental Limitations-(lack of equipment, weather restraints, etc.). 88-Not Attempted due to Medical Conditions or Safety Concerns. Roll Left to Right (QC): 3 Sit to Lying (QC): 3 Sit to Stand (QC): 3 (min to CGA with skilled cues for hand and foot placement 25% of the time. ) Chair/Cbx-dj-Uhsah Xfer(QC): 3 (min assist for balacne) Car Transfer (QC): 3 Gait Training Does the Patient Walk?: Yes Distance: 70', 100', 100', 50' Walk 10 feet (QC): 4 Walk 50 ft with 2 Turns(QC): 3 Walk 150 ft (QC): 88 Walking 10ft/uneven surface-QC: 88 Gait Persons Needed: 1 Gait Assistive Device: Walker Haresh Wheelchair Training Does the Pt Use a Wheelchair?: Yes Distance: 150' Wheel 50 ft with 2 turns (QC): 5 Wheel 150 ft (QC): 5 Type of Wheelchair: Manual Stair Training 1 Step (curb) (QC): 88 4 Steps (QC): 88 12 Steps (QC): 88 Balance Picking up an Object (QC): 88 ADL-Treatment Eating (QC): 5 (Per pt report, he is able to open almost all containers by himself and complete eating. He needs assistance with salad dressing packets and other packets due to decreased functional use of right hand. ) Oral Hygiene (QC): 7 Shower/Bathe Self (QC): 3 (Sponge bath: pt able to wash chest, abdomen, periarea, right arm, upper legs, and lower legs. He required assistance with washing left arm, and his feet. OT educated pt on using long handled sponge, and adaptive techniques to dry his lower legs.) Upper Body Dressing (QC): 3 (Pt able to doff shirt, he attempted to thread right arm into his shirt but ended up requiring assistance. He was then able to finish donning shirt without assistance.) Lower Body Dressing (QC): 2 (Pt attempted to don LE clothing with change over but required assistance threading BLE into underwear and RLE into pants. During stand, pt able to pull pants up on left side but required assistance with the right side due to fatigue.) On/Off Footwear (QC): 2 (Pt doffed socks using sock aide. Pt attempted to don socks onto sockaide using left hand. The sock aide kept slipping so OT assisted pt with steading the aide, then he was able to thread sock onto aide. He was able to pull sock onto his left foot, required assistance with right due to pressure dressings. ) Toileting Hygiene (QC): 4 (Pt completes BSC transfer with CGA, use of haresh cane, BSC placed to L side of bed. Pt completes BM. CGA in stance post-BM, able to complete with s/u for wipes) Toilet Transfer (QC): 4 (CGA and cues for positioning) Assessment/Plan Assessment and Plan Assess & Plan/Chief Complaint Assessment: s/p right hip fracture FUO at [facility] completing abx IV h/o CVA with right sided weakness HTN DM HTN CRI Entercolitis Right hip incision redness Plan: IRF protocol Bladder and bowel management Manage incontinence Pain control Complete IV abx Tuesday Appreciate Dr Meneses's reassurance (1) Hip fracture (2) History of CVA with residual deficit (3) Right sided weakness (4) Hypertension (5) Diabetes (6) Hyperlipemia (7) Renal insufficiency (8) Anemia (9) Ileus (10) Colonic obstruction (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
[2020-01-27] MEDS: diphenhydrAMINE 25 MG TAB (BENADRYL) PO PRN (20:17)
[2020-01-27] MEDS: MELATONIN 3 MG TABLET PO PRN (20:17)
[2020-01-28] MEDS: KCL 10 MEQ TAB (MICRO K) PO SCH (05:07)
[2020-01-28] MEDS: CATHETER FLUSH 10 ML SYR IV SCH ×3 (05:07→20:14)
[2020-01-28] MEDS: metroNIDAZOLE 500MG/100ML IVPB 100 ML IV SCH ×2 (05:07→14:22)
[2020-01-28 05:26] VITALS: BP 162/86
--- NOTE | 2020-01-28 07:03 | Progress Note - Surgery ---
[facility] 01/28/20 0703: Subjective Date Seen by a Provider: Jan 28, 2020 Time Seen by a Provider: 06:58 Subjective/Events-last exam Pt is alert and oriented and in no acute distress. No family at bedside. The patient is sitting comfortably in bed eating breakfast. Patient denies: leg pain, chest pain, SOB, N/V, or the feeling of F/C. Review of Systems General: No Chills Pulmonary: No Dyspnea, No Cough Cardiovascular: No: Chest Pain, Palpitations Gastrointestinal: No: Nausea, Vomiting Neurological: Other (weakness right side of body secondary to CVA) Objective Exam Vital Signs Date Time Temp Pulse Resp B/P (MAP) Pulse Ox O2 Delivery O2 Flow Rate FiO2 01/28/20 05:26 37.0 72 18 162/86 (111) 97 Room Air 01/27/20 20:30 94 Room Air 01/27/20 18:36 36.4 73 18 132/73 (92) 94 Room Air 01/27/20 09:00 Room Air I & O 01/28/20 07:00 Intake Total 1570 ml Output Total 500 ml Balance 1070 ml Capillary Refill : Less Than 3 SecondsLess Than 3 Seconds General Appearance: No Apparent Distress, WD/WN, Chronically ill HEENT: PERRL/EOMI, Normal ENT Inspection, Pharynx Normal Neck: Full Range of Motion, Normal Inspection, Non Tender, Supple Respiratory: Chest Non Tender, Lungs Clear, No Accessory Muscle Use, No Respiratory Distress, Decreased Breath Sounds Cardiovascular: Regular Rate, Rhythm, No Gallop, No JVD, No Murmur, Normal Peripheral Pulses Gastrointestinal: non tender, soft Extremity: Normal Capillary Refill, Normal Inspection, Normal Range of Motion (limited ROM right leg), Non Tender, No Calf Tenderness, Pedal Edema (Right juana ws minor swelling ) Neurologic/Psychiatric: Alert, Oriented x3, No Motor/Sensory Deficits, Normal Mood/Affect, senior mobile developer II-XII Norm as Tested, Motor Weakness (right sided chronic) Skin: Normal Color, Warm/Dry Lymphatic: No Adenopathy Assessment/Plan Assessment/Plan Assessment/Plan Post Right hip fracture Possible hematoma Patients right hip fracture is well approximated and non tender to palpation. The patient is currently not on pain medication and is tolerating PT well. The surrounding skin on right hip incision has minor erythema and stage 4 bruising. There is minor invasion of the border created aroudn the erythema yesterday. There is more intensity located around the right hip. The incision line is pink and without discharge. Will continue to monitor for possible hematoma, consider getting x-ray of the right hip. The patient is finishing up last dose of cefepime and metronidazole. Will continue to monitor for cellulitis. - Consider order imaging - consider CBC with diff Thank you for consult.Please call if there is any questions. Will continue to monitor. Patient with right femur fracuture and partial right hip replacement feel wound is likely bruising, will have outlined and monitored for infection no changes at this time, will follow. Clinical Quality Measures DVT/VTE Risk/Contraindication: Risk Factor Score Per Nursin RFS Level Per Nursing on Admit: 4+=Very High ERICH MENESES DO 01/28/20 1221: Subjective Subjective/Events-last exam Patient with no new complaints. Not having any changes to the right lower leg. No drainage. Denies n/v fever sweats chills shortness of breath or chest pain. Objective Exam General Appearance: No Apparent Distress, WD/WN, Chronically ill HEENT: PERRL/EOMI, Normal ENT Inspection, Pharynx Normal Neck: Full Range of Motion, Non Tender Respiratory: Chest Non Tender, No Accessory Muscle Use, No Respiratory Distress Cardiovascular: Regular Rate, Rhythm Gastrointestinal: non tender, soft Extremity: Other (right thigh with swelling and erythema and yellowing, some induration likely hematoma) Neurologic/Psychiatric: Alert, Oriented x3, No Motor/Sensory Deficits, Normal Mood/Affect, senior mobile developer II-XII Norm as Tested, Motor Weakness (right sided chronic) Skin: Normal Color, Warm/Dry Lymphatic: No Adenopathy Assessment/Plan Assessment/Plan Assessment/Plan right femur fx s/p right partial hip replacement erythema right thigh likely hematoma less likely cellulitis continue medical management will continue to follow Supervisory-Addendum Brief Verification & Attestation Participated in pt care: history, MDM, physical Personally performed: exam, history, MDM, supervision of care Care discussed with: Medical Student Procedures: n/a Results interpretation: Verified all documentation Verification and Attestation of Medical Student E/M Service A medical student performed and documented this service in my presence. I reviewed and verified all information documented by the medical student and made modifications to such information, when appropriate. I personally performed the physical exam and medical decision making. Erich Meneses, Jan 28, 2020,12:21 [facility] Jan 28, 2020 07:03 ERICH MENESES DO Jan 28, 2020 12:21
[2020-01-28 07:43] LABS: BASOPHILS % (AUTO) 0 % (0-10); EOSINOPHILS # (AUTO) 0.3 10^3/uL (0.0-0.3); EOSINOPHILS % (AUTO) 4 % (0-10); HEMATOCRIT 33 % (40-54); HEMOGLOBIN 10.5 G/DL (13.3-17.7); LYMPHOCYTES # (AUTO) 1.4 X 10^3 (1.0-4.0); LYMPHOCYTES % (AUTO) 18 % (12-44); MEAN CORPUSCULAR HEMOGLOBIN 29 PG (25-34); MEAN CORPUSCULAR HGB CONC 32 G/DL (32-36); MEAN CORPUSCULAR VOLUME 90 FL (80-99); MEAN PLATELET VOLUME 8.6 FL (7.4-10.4); MONOCYTES # (AUTO) 0.8 X 10^3 (0.0-1.0); MONOCYTES % (AUTO) 11 % (0-12); NEUTROPHILS # (AUTO) 4.9 X 10^3 (1.8-7.8); NEUTROPHILS % (AUTO) 66 % (42-75); PLATELET COUNT 417 10^3/uL (130-400); RED CELL DISTRIBUTION WIDTH 15.2 % (10.0-14.5); WHITE BLOOD COUNT 7.4 10^3/uL (4.3-11.0)
[2020-01-28 08:06] LABS: ALBUMIN 3.3 GM/DL (3.2-4.5); BILIRUBIN,TOTAL 0.3 MG/DL (0.1-1.0); CALCIUM 8.6 MG/DL (8.5-10.1); CREATININE SERUM 1.47 MG/DL (0.60-1.30); POTASSIUM 4.4 MMOL/L (3.6-5.0); TOTAL PROTEIN 6.4 GM/DL (6.4-8.2)
[2020-01-28] MEDS ORDERED: LISI1TAB26 PO (08:08)
[2020-01-28] MEDS ORDERED: METO-333 PO (08:08)
--- NOTE | 2020-01-28 08:09 | NUR ---
ENTERED MED REC USING THE [facility] DISCHARGE ORDERS. INTERVIEWED THE PT AND UPDATED THE MED REC TO WHAT THE PT WAS TAKING BEFORE HIS [facility] STAY. MEDICATIONS THAT HAVE BEEN REMOVED FROM THE MED REC DUE TO THE PT NOT BEING ON THEM BEFORE [facility]: ALBUTEROL NEB BISACODYL 10MG SUPP CEFTAZIDIME 1,000 CYCLOBENZAPRINE 10MG ENOXAPARIN 30MG VIT D 50,000 METRONIDAZOLE 500MG/100ML MTV OXYCODONE 10MG PANTOPRAZOLE 40MG MIRALAX SENNA S CHANGES: [facility] ORDERS: METOPROLOL 50MG- 1 TAB BID PREVIOUS ORDER THAT HAS BEEN UPDATED: METOPROLOL 25MG- 1 TAB BID DISCONTINUED MEDS( ADDED BACK TO MED REC FOR DISCHARGE ORDERS) LISINOPRIL /HCTZ 20/25MG- 1 TAB DAILY MEDICATIONS THAT HAVE STAYED THE SAME AND NO CHANGED NEEED TO BE MADE: AMLODIPINE 10MG ATORVASTATIN 40MG GLIPIZIDE 5MG
--- NOTE | 2020-01-28 08:58 | Physical Therapy Daily Note ---
PT Daily Note-Current Subjective Patient sitting EOB pre tx, agrees to PT, has no complaints of pain at rest. Patient needs dressed, max assist for pants and shirt. Appearance Patient in recliner post tx with nurse call, phone, tray, all needs met. Mental Status Patient Orientation: Person, Place, Situation Transfers SCALE: Activities may be completed with or without assistive devices. 7-Hxpasywlfx-jzbrhnr completes the activity by him/herself with no assistance from a helper. 5-Set-up or Clean-up Assistance-helper sets up or cleans up; patient completes activity. [place] assists only prior to or following the activity. 4-Supervision or Touching Assistance-helper provides verbal cues and/or touching/steadying and/or contact guard assistance as patient completes activity. Assistance may be provided throughout the activity or intermittently. 3-Partial/Moderate Assistance-helper does LESS THAN HALF the effort. [place] lifts, holds or supports trunk or limbs, but provides less than half the effort. 2-Substantial/Maximal Assistance-helper does MORE THAN HALF the effort. [place] lifts or holds trunk or limbs and provides more than half the effort. 2-Mtajthmit-mokebr does ALL the effort. Patient does none of the effort to complete the activity. Or, the assistance of 2 or more helpers is required for the patient to complete the activity. If activity was not attempted, code reason: 7-Patient Refused. 9-Not Applicable-not attempted and the patient did not perform the activity before the current illness, exacerbation or injury. 10-Not Attempted due to Environmental Limitations-(lack of equipment, weather restraints, etc.). 88-Not Attempted due to Medical Conditions or Safety Concerns. Sit to Stand (QC): 3 Chair/Agp-ls-Gklmd Xfer(QC): 3 Min assist to stand from lower surfaces, min assist for stand pivot transfer to the right side, CGA to the left. Weight Bearing Right Lower Extremity: Right Weight Bearing/Tolerated Left Lower Extremity: Left Full Weight Bearing Gait Training Distance: 75' Walk 10 feet (QC): 4 Walk 50 ft with 2 Turns(QC): 4 Gait Persons Needed: 1 Gait Assistive Device: Walker Haresh Patient ambulated with CGA, has right knee buckling and hyperextension, needs to use an AFO but has pain with one and has a sore on his right foot. Wheelchair Training Does the Pt Use a Wheelchair?: Yes Wheel 50 ft with 2 turns (QC): 6 Wheel 150 ft (QC): 6 Type of Wheelchair: Manual 150'x2 Exercises Seated Therapy Exercises: Hip flexion (LLE only), Hip abd/add (with ball and RTB) Seated Reps: 15 Standing: Hip Abduction, Marching Standing Reps: 15 LAQ alternating for 5 min Treatments functional strengthening, transfers, ambulation, WC mobility Assessment Current Status: Poor Progress increased right knee instability, poor endurance, needs frequent rest breaks PT Short Term Goals Short Term Goals Time Frame: Jan 30, 2020 Roll Left & Right: 6 Sit to lyin Lying to sitting on side of be: 4 Sit to stand: 4 Chair/aob-bo-noylq transfer: 4 Walk 10 feet: 4 PT Intermediate Goals Mri Tech Goals PT Mri Tech Goals Time Frame: Feb 13, 2020 Roll Left & Right (QC): 6 Sit to Lying (QC): 6 Lying-Sitting on Side/Bed(QC): 6 Sit to Stand (QC): 4 (SBA) Chair/Mmu-ph-Rvxde Xfer(QC): 4 (SBA) Toilet Transfer (QC): 4 (SBA) Car Transfer (QC): 4 (SBA) Does the Patient Walk: Yes Walk 10 feet (QC): 4 Walk 50ft with 2 Turns (QC): 4 Walking 10ft on Uneven Surface: 4 1 Step (curb) (QC): 4 PT Plan Problem List Problem List: Activity Tolerance, Functional Strength, Safety, Balance, Gait, Transfer, Bed Mobility, ROM Treatment/Plan Treatment Plan: Continue Plan of Care Treatment Plan: Bed Mobility, Education, Functional Activity Delmy, Functional Strength, Group Therapy, Gait, Safety, Therapeutic Exercise, Transfers Treatment Duration: Feb 13, 2020 Frequency: At least 5 of 7 days/Wk (IRF) Estimated Hrs Per Day: 1.5 hours per day Patient and/or Family Agrees t: Yes Safety Risks/Education Patient Education: Gait Training, Transfer Techniques, Correct Positioning, W/C Management, Safety Issues Teaching Recipient: Patient Teaching Methods: Demonstration, Discussion Response to Teaching: Reinforcement Needed Time/GCodes Time In: 815 Time Out: 0900 Total Billed Treatment Time: 45 Total Billed Treatment 1 visit [facility] 15' FA 15' EX 15' BROOKE WORLEY PT Jan 28, 2020 08:58
[2020-01-28] MEDS: SENNA W/DOCUSATE (SENOKOT S) TABLET PO SCH ×2 (09:00→20:13)
[2020-01-28] MEDS: polyethylene glycoL POWDER 17 GM (MIRALAX) PACK PO SCH ×2 (09:00→20:13)
[2020-01-28] MEDS: BISACODYL 10 MG SUPP (DULCOLAX) RC SCH (09:00)
[2020-01-28] MEDS: DOCUSATE SODIUM 100 MG (COLACE) CAP PO SCH ×2 (09:00→20:13)
--- NOTE | 2020-01-28 09:33 | PM&R Progress Note ---
Subjective HPI/CC On Admission Date Seen by Provider: Jan 28, 2020 Time Seen by Provider: 09:15 Subjective/Events-last exam Hematoma managed by Dr. Meneses of the right hip. Maxipime and Flagyl maintained and will be completing today. Midline is functioning well. Catheter that his brought in seems to help quite a bit with his incontinence. No significant pain reported otherwise. Reviewed therapy notes Checked meds and labs Conferred with roller coaster operator of Systems General: Fatigue Musculoskeletal: leg pain Neurological: Weakness, Numbness, Incoordination Objective Exam Vital Signs Vital Signs Date Time Temp Pulse Resp B/P (MAP) Pulse Ox O2 Delivery O2 Flow Rate FiO2 01/28/20 18:48 Room Air 01/28/20 16:00 36.8 78 16 155/90 (111) 98 Capillary Refill : Less Than 3 SecondsLess Than 3 Seconds General Appearance: No Apparent Distress, WD/WN, Chronically ill HEENT: PERRL/EOMI, Normal ENT Inspection, Pharynx Normal Neck: Full Range of Motion, Normal Inspection, Non Tender, Supple Respiratory: Chest Non Tender, Lungs Clear, No Accessory Muscle Use, No Respiratory Distress, Decreased Breath Sounds Cardiovascular: Regular Rate, Rhythm, No Gallop, No JVD, No Murmur, Normal Peripheral Pulses Gastrointestinal: Normal Bowel Sounds, No Organomegaly, No Pulsatile Mass, Non Tender, Soft Back: Normal Inspection, No CVA Tenderness, No Vertebral Tenderness Extremity: Normal Capillary Refill, Normal Inspection, Normal Range of Motion (limited ROM right leg), Non Tender, No Calf Tenderness, Pedal Edema (Right shows minor swelling ) Neurologic/Psychiatric: Alert, Oriented x3, No Motor/Sensory Deficits, Normal Mood/Affect, epic ambulatory specialists II-XII Norm as Tested, Motor Weakness (right sided chronic) Skin: Normal Color, Warm/Dry Lymphatic: No Adenopathy Results/Procedures Lab Laboratory Tests 01/28/20 05:25 Patient resulted labs reviewed. FIM Transfers Therapy Code Descriptions/Definitions Functional [place] Measure: 0=Not Assessed/NA 4=Minimal Assistance 1=Total Assistance 5=Supervision or Setup 2=Maximal Assistance 6=Modified [place] 3=Moderate Assistance 7=Complete IndependenceSCALE: Activities may be completed with or without assistive devices. 9-Uvgiibczca-otdprdz completes the activity by him/herself with no assistance from a helper. 5-Set-up or Clean-up Assistance-helper sets up or cleans up; patient completes activity. [place] assists only prior to or following the activity. 4-Supervision or Touching Assistance-helper provides verbal cues and/or touching/steadying and/or contact guard assistance as patient completes activity. Assistance may be provided throughout the activity or intermittently. 3-Partial/Moderate Assistance-helper does LESS THAN HALF the effort. [place] lifts, holds or supports trunk or limbs, but provides less than half the effort. 2-Substantial/Maximal Assistance-helper does MORE THAN HALF the effort. [place] lifts or holds trunk or limbs and provides more than half the effort. 0-Ouytposox-dwsqyc does ALL the effort. Patient does none of the effort to complete the activity. Or, the assistance of 2 or more helpers is required for the patient to complete the activity. If activity was not attempted, code reason: 7-Patient Refused. 9-Not Applicable-not attempted and the patient did not perform the activity before the current illness, exacerbation or injury. 10-Not Attempted due to Environmental Limitations-(lack of equipment, weather restraints, etc.). 88-Not Attempted due to Medical Conditions or Safety Concerns. Roll Left to Right (QC): 3 Sit to Lying (QC): 3 Sit to Stand (QC): 3 Chair/Zir-mb-Hhsjq Xfer(QC): 3 Car Transfer (QC): 3 Gait Training Does the Patient Walk?: Yes Distance: 75' Walk 10 feet (QC): 4 Walk 50 ft with 2 Turns(QC): 4 Walk 150 ft (QC): 88 Walking 10ft/uneven surface-QC: 88 Gait Persons Needed: 1 Gait Assistive Device: Walker Haresh Wheelchair Training Does the Pt Use a Wheelchair?: Yes Distance: 150' Wheel 50 ft with 2 turns (QC): 6 Wheel 150 ft (QC): 6 Type of Wheelchair: Manual Stair Training 1 Step (curb) (QC): 88 4 Steps (QC): 88 12 Steps (QC): 88 Balance Picking up an Object (QC): 88 ADL-Treatment Eating (QC): 5 (Per pt report, he is able to open almost all containers by himself and complete eating. He needs assistance with salad dressing packets and other packets due to decreased functional use of right hand. ) Oral Hygiene (QC): 7 Shower/Bathe Self (QC): 3 (Sponge bath: pt able to wash chest, abdomen, periarea, right arm, upper legs, and lower legs. He required assistance with washing left arm, and his feet. OT educated pt on using long handled sponge, and adaptive techniques to dry his lower legs.) Upper Body Dressing (QC): 3 (Pt able to doff shirt, he attempted to thread right arm into his shirt but ended up requiring assistance. He was then able to finish donning shirt without assistance.) Lower Body Dressing (QC): 2 (Pt attempted to don LE clothing with automobile radio repairer but required assistance threading BLE into underwear and RLE into pants. During stand, pt able to pull pants up on left side but required assistance with the right side due to fatigue.) On/Off Footwear (QC): 2 (Pt doffed socks using sock aide. Pt attempted to don socks onto sockaide using left hand. The sock aide kept slipping so OT assisted pt with steading the aide, then he was able to thread sock onto aide. He was able to pull sock onto his left foot, required assistance with right due to pressure dressings. ) Toileting Hygiene (QC): 4 (Pt completes BSC transfer with CGA, use of haresh cane, BSC placed to L side of bed. Pt completes BM. CGA in stance post-BM, able to complete with s/u for wipes) Toilet Transfer (QC): 4 (CGA and cues for positioning) Assessment/Plan Assessment and Plan Assess & Plan/Chief Complaint Assessment: s/p right hip fracture FUO at [facility] completing abx IV today h/o CVA with right sided weakness HTN DM HTN CRI Entercolitis Right hip incision redness hematoma assessed by general surgery Plan: IRF protocol Bladder and bowel management Manage incontinence Pain control Complete IV abx today Appreciate Dr Meneses's reassurance (1) Hip fracture (2) History of CVA with residual deficit (3) Right sided weakness (4) Hypertension (5) Diabetes (6) Hyperlipemia (7) Renal insufficiency (8) Anemia (9) Ileus (10) Colonic obstruction (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
[2020-01-28] MEDS: CEFEPIME 1,000 MG/SWFI 10 ML IV PUSH IV SCH ×2 (09:51)
[2020-01-28] MEDS: meTOprolol TARTRATE 50 MG (LOPRESSOR) TAB PO SCH ×2 (09:52→20:11)
[2020-01-28] MEDS: glipiZIDE 5 MG (GLUCOTROL) TAB PO SCH (09:52)
[2020-01-28] MEDS: ENOXAPARIN 40 MG/0.4 ML (LOVENOX) SYR SC SCH (09:52)
[2020-01-28] MEDS: amLODIPine 5 MG (NORVASC) TAB PO SCH (09:52)
[2020-01-28] MEDS: MULTIVIT W/MINERALS TAB (THERAGRAN M) PO SCH (09:52)
[2020-01-28] MEDS: PANTOPRAZOLE 40 MG (PROTONIX) TAB PO SCH (09:52)
--- NOTE | 2020-01-28 10:49 | Occupational Ther Daily Note ---
OT Current Status-Daily Note Subjective Pt seen in room, pt agreeable to OT tx session. Pt states slept well, states min pain in R hip. ADL-Treatment Therapy Code Descriptions/Definitions Functional [place] Measure: 0=Not Assessed/NA 4=Minimal Assistance 1=Total Assistance 5=Supervision or Setup 2=Maximal Assistance 6=Modified [place] 3=Moderate Assistance 7=Complete IndependenceSCALE: Activities may be completed with or without assistive devices. 3-Hcvnhihmlf-wclrljg completes the activity by him/herself with no assistance from a helper. 5-Set-up or Clean-up Assistance-helper sets up or cleans up; patient completes activity. [place] assists only prior to or following the activity. 4-Supervision or Touching Assistance-helper provides verbal cues and/or touching/steadying and/or contact guard assistance as patient completes activity. Assistance may be provided throughout the activity or intermittently. 3-Partial/Moderate Assistance-helper does LESS THAN HALF the effort. [place] lifts, holds or supports trunk or limbs, but provides less than half the effort. 2-Substantial/Maximal Assistance-helper does MORE THAN HALF the effort. [place] lifts or holds trunk or limbs and provides more than half the effort. 5-Mleqhbupv-rnneij does ALL the effort. Patient does none of the effort to complete the activity. Or, the assistance of 2 or more helpers is required for the patient to complete the activity. If activity was not attempted, code reason: 7-Patient Refused. 9-Not Applicable-not attempted and the patient did not perform the activity before the current illness, exacerbation or injury. 10-Not Attempted due to Environmental Limitations-(lack of equipment, weather restraints, etc.). 88-Not Attempted due to Medical Conditions or Safety Concerns. Oral Hygiene (QC): 6 Shower/Bathe Self (QC): 7 Upper Body Dressing (QC): 7 Lower Body Dressing (QC): 7 On/Off Footwear: 7 Toileting Hygiene (QC): 4 (CGA in stance.) Toilet Transfer (QC): 4 (CGA. use of grab bars and annie walker) Other Treatment Pt completes sit to stand with SBA, ambulates to toilet with CGA as pt states his R LE may give out. Pt completes toileting on commode in bathroom with SUP, hygiene with CGA. Pt ambulates to w/c, sits and completes oral hygiene in front of sink. Pt states agreement to work towards increased balance and use of senior software analyst for pant donning. Pt compeltes w/c mob with gym with SUP. Sit to stand/ transfer to EOM with CGA. Pt completes theraband exercises (utilizes senior software analyst to don over RLE toward knee), then completes 20 bicep curls with LUE, doffs with senior software analyst. Pt completes this 3x. Pt then requests we work towards increased mobility of RUE. Pt educated on gravity neutral positions (requires an delinquent tax collection assistant to help him to this position), pt then completes 5 horizontal ab/adductions with RUE with R arm held in gravity eliminated. Pt then completes AAROM of RUE with use of LUE. Pt returns to room with w/c, squat pivot to recliner chair with CGA. Pt left in room with call light in reach, all needs met, PACKAGE REINSPECTOR student present. Education OT Patient Education: Correct positioning, Exercise program, Home exercise program, Modified ADL techniques, Safety issues, Use of adapted equipment Teaching Recipient: Patient Teaching Methods: Demonstration, Discussion Response to Teaching: Verbalize Understanding, Return Demonstration OT Short Term Goals Short Term Goals Time Frame: Jan 30, 2020 Oral hygiene: 6 Lower body dressin Putting on/taking off footwear: 3 OT Director Of Social Services Goals Director Of Social Services Goals Time Frame: Feb 06, 2020 Eating (QC): 6 Oral Hygiene (QC): 6 (met) Toileting Hygiene (QC): 6 Shower/Bathe Self (QC): 6 Upper Body Dressing (QC): 6 Lower Body Dressing (QC): 6 On/Off Footwear (QC): 6 Additional Goals: 1-Demonstrate ADL Tasks, 2-Verbalize Understanding, 3- ImproveStrength/Delmy 1=Demonstrate adherence to instructed precautions during ADL tasks. 2=Patient will verbalize/demonstrate understanding of assistive devices/modifications for ADL. 3=Patient will improve strength/tolerance for activity to enable patient to perform ADL's. OT Education/Plan Problem List/Assessment Assessment: Decreased Activ Tolerance, Decreased UE Strength, Dependent Tr ansfers, Edema (pitted edema knee to distal ankle ), Impaired Funct Balance, Impaired I ADL's, Impaired Self-Care Skills Discharge Recommendations Plan/Recommendations: Continue POC Therapy Discharge Recommendati: Intermittent Supervision, Home & Family, Post Acute OT Treatment Plan/Plan of Care Treatment,Training & Education: Yes Patient would benefit from OT for education, treatment and training to promote independence in ADL's, mobility, safety and/or upper extremity function for ADL's. Plan of Care: ADL Retraining, Caregiver Training, Functional Mobility, Group Exercise/Act as Ind, Orthotic Fitting/Training, UE Funct Exercise/Act, UE Neuromus Re-Ed/Coord, W/C Management Training Treatment Duration: Feb 06, 2020 Frequency: At least 5 of 7 days/Wk (IRF) Estimated Hrs Per Day: 1.5 hours per day Agreement: Yes Rehab Potential: Fair Time/GCodes Start Time: 09:45 Stop Time: 10:30 Total Time Billed (hr/min): 45 Billed Treatment Time 1, ADL 2 (30), EX (15)= 45 GIOVANNA ARMENTA OTR Jan 28, 2020 10:49
--- NOTE | 2020-01-28 11:06 | Progress Note ---
JAMES[facility]IE [facility] 01/28/20 1106: Progress Note Ash has participated in 6 days of therapy and is making poor progress. He has poor endurance, knee instability, and needs frequent breaks. He is independent for showering and dressing but requires assistance for transfers and toileting. Patient would benefit from continued therapy for his right sided weakness after his stroke, however, stroke was over two years ago and assessment needs to be made on how much improvement will be expected for him and whether or not he has reached his maximum level of improvement. This assessment should be made after 5 more days of therapy. Plan for discharge on 02/01/2020. Pain is controlled. There seems to be a hematoma around his incision site which is of no concern at this time per surgery. There is no other medical concern requiring additional barriers to his discharge. Upon discharge later this week, bowel management will be of concern since he continues to be incontinent, he may benefit from seeing a neurologist since this could be a result of his stroke. He should continue to follow up with wound care for the ulcer in his heel. Concern for his mobility and ADLs should be re-evaluated closer to discharge to assess what he will need at home. NAJMA JIM DO 01/28/20 2110: Supervisory-Addendum Brief Verification & Attestation Participated in pt care: history, MDM, physical Personally performed: exam, history, MDM, supervision of care Care discussed with: Medical Student Procedures: n/a Results interpretation: Verified all documentation Verification and Attestation of Medical Student E/M Service A medical student performed and documented this service in my presence. I reviewed and verified all information documented by the medical student and made modifications to such information, when appropriate. I personally performed the physical exam and medical decision making. Najma Jim Jan 28, 2020,21:09 ANNIE RAMIREZ [facility] Jan 28, 2020 11:06 NAJMA JIM DO Jan 28, 2020 21:10
--- NOTE | 2020-01-28 13:25 | Speech Therapy Daily Note ---
Speech Daily Progress Note Subjective Date Seen by Provider: Jan 28, 2020 Time Seen by Provider: 10:30 Patient was alert, pleasant, and cooperative for all therapy tasks. Patient reported that he had a good weekend, however was feeling a little tired and down about his word-finding and memory deficits. Patient sat upright in his chair for the duration of treatment. Objective Patient completed word-finding tasks pertaining to given category name and items with 60% accuracy and moderate cues. Patient completed memory tasks pertaining to delayed recall with 85% and moderate cues. Assessment Assessment Current Status: Good Progress Treatment Plan Continue Plan of Care Speech Short Term Goals Short Term Goals Short Term Goals 1. The patient will complete memory tasks at 90% accuracy with minimal cues. 2. The patient will complete problem-solving tasks at 90% accuracy with minimal cues. 3. The patient will complete safety awareness tasks at 90% accuracy with minimal cues. 4. The patient will complete word-finding tasks at 90% accuracy with minimal cues. Speech Halfway Goals Halfway Goals Patient will improve cognitive-communication necessary for safety and daily living tasks with minimal assist. Speech-Plan Patient/Family Goals Patient/Family Goals: Patient reported that he wishes to return home to prior level of indpenedence and mobility. Treatment Plan Speech Therapy Treatment Plan: Continue Plan of Care Treatment Duration: Feb 01, 2020 Frequency: 5 times per week Estimated Hrs Per Day: .5 hour per day Rehab Potential: Fair Barriers to Learning: Moderate cognitive deficits Pt/Family Agrees to Plan: Yes Safety Risks/Education Teaching Recipient: Patient Teaching Methods: Demonstration, Discussion Response to Teaching: Verbalize Understanding Education Topics Provided: Continued utilization of internal and external memory aids to improve recall of important information Time Speech Therapy Time In: 10:30 Speech Therapy Time Out: 11:15 Total Billed Time: 45 Billed Treatment Time 1, OSVALDO West Jan 28, 2020 13:25
--- NOTE | 2020-01-28 14:32 | Therapy Group Daily Note ---
Therapy Daily Group Note Patient Education Topic Exercises, Other List Below (Cognition/memory/anxiety) Exercises LE Seated Exercise Session Ratio (pt:therapist): 3:1 Goal of Session: Memory Strategies To increase education overall of memory strategies, nutrition for brain health, and cognitive processing. To improve education on anxiety and stress relief. Goal Met for this Session: Yes Pt Benefit of Group: Contributions to Others, Increased Functional Strength, Improved Cognition, Socialization Pt. participated in socialization activity with emphasis on memory strategies, nutrition for brain health, and anxiety education. Pt. participated in cognitive memory game and participated well. Engaged in education to improve overall mood, memory, and processing health. Completed breathing exercises and "grounding" technique to decrease anxiety. Start Time: 13:00 Stop Time: 14:15 Total Billed Treatment Time: 75 Total Billed Treatment 1, Group JL PÉREZ OT Jan 28, 2020 14:32
--- NOTE | 2020-01-28 14:54 | NUR ---
"RD ASSESSMENT PMHx: hypercholesterolemia; HTN; stroke; GERD; obstructive bowel; chronic constipation; DM; CA(bladder); hip fracture PT INTERACTION: Pt was awake and pleasant during nutrition assessment. Pt states current appetite is good and has been for some time. Note avg PO intake of 98% x4d, per chart review. Pt states following a regular diet at home and has no issues with chewing/swallowing food. Pt states no recent issues with n/v/c/d at this time. Note last BM was 01/26 and pt currently on bowel regimen of senna BID; colace BID; and miralax BID, per chart review. Pt states no recent wt changes. Note unable to determine recent wt hx, per chart review. Pt states current DM management is pretty good and he guesses his avg blood glucose levels are between 135-140. Note unable to determine recent HbA1c, per chart review. ABNORMAL NUTRITION-RELATED LAB VALUES LOW: HIGH: Cl 108; cr 1.48; glu 126 Est. kcal needs: 2329-9015 kcal | 20-25 kcal/kg Est. Pro needs: 80-100 g Pro | 0.8-1.0 g Pro/kg PES STATEMENT: Given PO intake, no nutrition diagnosis at this time (NO-1.1) INTERVENTION: Continue with current diet order of Regular diet. Will continue to follow and reassess as pt needs, intake and status change. MONITOR/EVALUATE: PO Intake; Plan of Care; Hydration Status; Weight Status; Lab Values Damaso Salgado, MS, RD, LD"
[2020-01-28 16:00] VITALS: BP 155/90
[2020-01-28] MEDS: MELATONIN 3 MG TABLET PO PRN (20:11)
[2020-01-28] MEDS: diphenhydrAMINE 25 MG TAB (BENADRYL) PO PRN (20:11)
[2020-01-29 06:00] VITALS: BP 159/89
[2020-01-29] MEDS: CATHETER FLUSH 10 ML SYR IV SCH ×3 (06:22→20:55)
[2020-01-29] MEDS: KCL 10 MEQ TAB (MICRO K) PO SCH (06:22)
--- NOTE | 2020-01-29 07:38 | Progress Note - Surgery ---
[facility] 01/29/20 0738: Subjective Date Seen by a Provider: Jan 29, 2020 Time Seen by a Provider: 07:15 Subjective/Events-last exam Alert and oriented no acute distress. No family at bedside. No questions or concerns at this time. Denies pain, and is sleeping good Denies the following: CHest pain, Abdominal pain, SOB, MSK pain , N/V and the feeling of fever or chills Objective Exam Vital Signs Date Time Temp Pulse Resp B/P (MAP) Pulse Ox O2 Delivery O2 Flow Rate FiO2 01/28/20 21:00 Room Air 01/28/20 18:48 Room Air 01/28/20 16:00 36.8 78 16 155/90 (111) 98 Room Air 01/28/20 09:00 Room Air 01/28/20 07:55 98 Room Air I & O 01/29/20 07:00 Intake Total 1000 ml Balance 1000 ml Capillary Refill : Less Than 3 SecondsLess Than 3 Seconds General Appearance: No Apparent Distress, WD/WN, Chronically ill HEENT: PERRL/EOMI, Normal ENT Inspection, Pharynx Normal Neck: Full Range of Motion, Normal Inspection, Non Tender, Supple Respiratory: Chest Non Tender, Lungs Clear, No Accessory Muscle Use, No Respiratory Distress, Decreased Breath Sounds Cardiovascular: Regular Rate, Rhythm, Normal Peripheral Pulses, Other (Right leg edema ) Gastrointestinal: non tender, soft Extremity: Normal Capillary Refill, Normal Inspection, Normal Range of Motion (limited ROM right leg), Non Tender, No Calf Tenderness, Pedal Edema (Right shows minor swelling ) Neurologic/Psychiatric: Alert, Oriented x3, No Motor/Sensory Deficits, Normal Mood/Affect, Motor Weakness (right sided chronic) Skin: Normal Color, Warm/Dry Lymphatic: No Adenopathy Assessment/Plan Assessment/Plan Assessment/Plan Right femur fx s/p right partil hip replacement. The area of concern seems pretty stable, difficult to discern if it was warm or not because patient was laying on that side. I recommended that he keep weight and pressure of off right hip when laying in bed. He has difficulty changing position, may need assistance with turning when in bed. Patient has swelling and erythema of the right hip that is unchanged since previous day. May consider ultrasound of area due to hematoma or if warmth is associated with wound itself. Overall, patient is doing well. Continue medical management, Will continue to follow. Clinical Quality Measures DVT/VTE Risk/Contraindication: Risk Factor Score Per Nursin RFS Level Per Nursing on Admit: 4+=Very High HALLIE MENESES DO 01/29/201922: Subjective Subjective/Events-last exam No new complaints. Redness stayed the same. No change in pain. Denies n/v fever sweats chills shortness of breath or chest pain. Right heal blister, which he states Dr. Crocker is coming to see. Objective Exam General Appearance: No Apparent Distress HEENT: PERRL/EOMI Neck: Full Range of Motion, Non Tender Respiratory: Chest Non Tender, No Accessory Muscle Use, No Respiratory Distress Cardiovascular: Regular Rate, Rhythm Gastrointestinal: non tender, soft, no organomegaly Extremity: Normal Capillary Refill, No Calf Tenderness, Other (right thigh with erythema and yellowing and indurated tissues likely bruising/hematoma) Neurologic/Psychiatric: Alert, Oriented x3, Motor Weakness (right sided chronic) Skin: Warm/Dry, Other (right thigh changes as above) Lymphatic: No Adenopathy Assessment/Plan Assessment/Plan Assessment/Plan right femur fx s/p right partial hip replacement hematoma/bruising right thigh wound, feel this is less likely cellulitis it's stable right heel ulcer- Dr. Crocker coming to evaluate continue to monitor Supervisory-Addendum Brief Verification & Attestation Participated in pt care: history, MDM, physical Personally performed: exam, history, MDM, supervision of care Care discussed with: Medical Student Procedures: n/a Results interpretation: Verified all documentation Verification and Attestation of Medical Student E/M Service A medical student performed and documented this service in my presence. I reviewed and verified all information documented by the medical student and made modifications to such information, when appropriate. I personally performed the physical exam and medical decision making. Hallie Meneses, Jan 29, 2020,19:26 [facility] Jan 29, 2020 07:38 HALLIE MENESES DO Jan 29, 2020 19:23
--- NOTE | 2020-01-29 08:00 | NUR ---
DR. CHAVEZ AND MEDICAL STUDENT HERE TO SEE PATIENT.
[2020-01-29] MEDS: glipiZIDE 5 MG (GLUCOTROL) TAB PO SCH (08:45)
[2020-01-29] MEDS: ENOXAPARIN 40 MG/0.4 ML (LOVENOX) SYR SC SCH (08:45)
[2020-01-29] MEDS: PANTOPRAZOLE 40 MG (PROTONIX) TAB PO SCH (08:45)
[2020-01-29] MEDS: MULTIVIT W/MINERALS TAB (THERAGRAN M) PO SCH (08:46)
[2020-01-29] MEDS: BISACODYL 10 MG SUPP (DULCOLAX) RC SCH (08:48)
[2020-01-29] MEDS: SENNA W/DOCUSATE (SENOKOT S) TABLET PO SCH ×2 (08:48→21:06)
[2020-01-29] MEDS: DOCUSATE SODIUM 100 MG (COLACE) CAP PO SCH ×2 (08:48→21:03)
[2020-01-29] MEDS: polyethylene glycoL POWDER 17 GM (MIRALAX) PACK PO SCH ×2 (08:48→21:03)
--- NOTE | 2020-01-29 09:06 | Occupational Ther Daily Note ---
OT Current Status-Daily Note Subjective Pt seen in recliner chair, completing breakfast. Pt agreeable to OT tx session, denies pain. Mental Status/Objective Patient Orientation: Person, Place, Situation ADL-Treatment Therapy Code Descriptions/Definitions Functional [place] Measure: 0=Not Assessed/NA 4=Minimal Assistance 1=Total Assistance 5=Supervision or Setup 2=Maximal Assistance 6=Modified [place] 3=Moderate Assistance 7=Complete IndependenceSCALE: Activities may be completed with or without assistive devices. 2-Nkwohwyqvv-wdfexjw completes the activity by him/herself with no assistance from a helper. 5-Set-up or Clean-up Assistance-helper sets up or cleans up; patient completes activity. [place] assists only prior to or following the activity. 4-Supervision or Touching Assistance-helper provides verbal cues and/or touching/steadying and/or contact guard assistance as patient completes activity. Assistance may be provided throughout the activity or intermittently. 3-Partial/Moderate Assistance-helper does LESS THAN HALF the effort. [place] lifts, holds or supports trunk or limbs, but provides less than half the effort. 2-Substantial/Maximal Assistance-helper does MORE THAN HALF the effort. [place] lifts or holds trunk or limbs and provides more than half the effort. 8-Ojtgvlgke-cwlyji does ALL the effort. Patient does none of the effort to complete the activity. Or, the assistance of 2 or more helpers is required for the patient to complete the activity. If activity was not attempted, code reason: 7-Patient Refused. 9-Not Applicable-not attempted and the patient did not perform the activity before the current illness, exacerbation or injury. 10-Not Attempted due to Environmental Limitations-(lack of equipment, weather restraints, etc.). 88-Not Attempted due to Medical Conditions or Safety Concerns. Eating (QC): 6 Oral Hygiene (QC): 6 (completes in w/c in front of sink) Bathing Location: R Arm, L Upper Leg, R Upper Leg, L Lower Leg (including foot), R Lower Leg (including foot), Chest, Abdomen, Perineal Area Shower/Bathe Self (QC): 3 (Min A for L underarm/ arm and bottom. Pt utilizes LHS for LE's) Upper Body Dressing (QC): 6 Lower Body Dressing (QC): 3 (S/u for breif donningMin A pant donning on R LE (use of nut process helper)) On/Off Footwear: 2 (Pt completes L sock with cues for positioning, pt completes R sock with max A) Toileting Hygiene (QC): 3 (min A and CGA through hygiene) Toilet Transfer (QC): 7 Other Treatment Pt agrees to showering. Pt completes transfer from recliner to shower bench with CGA and annie walker. Pt completes shower and ADLs (see above). Pt returns to recliner, completes 25 reps of the following theraband exercises: shoulder flexion shoulder extension, bicep curls, back flies, internal shoulder rotation, and shoulder horizontal ab/ adduction. Pt's nurse notified of dampening of heel protectors, pt educated on therapy schedule, all needs met, pt left in recliner chair with call light in reach. Education OT Patient Education: Correct positioning, Exercise program, Home exercise program, Modified ADL techniques, Progress toward Goal/Update tx plan, Purpose of tx/functional activities, Reviewed precautions, Transfer techniques, Use of adapted equipment Teaching Recipient: Patient Teaching Methods: Demonstration, Discussion Response to Teaching: Verbalize Understanding, Return Demonstration OT Short Term Goals Short Term Goals Time Frame: Jan 30, 2020 Oral hygiene: 6 Lower body dressin Putting on/taking off footwear: 3 OT Usp Goals Product Grader Goals Time Frame: Feb 06, 2020 Eating (QC): 6 Oral Hygiene (QC): 6 (met) Toileting Hygiene (QC): 6 Shower/Bathe Self (QC): 6 Upper Body Dressing (QC): 6 Lower Body Dressing (QC): 6 On/Off Footwear (QC): 6 Additional Goals: 1-Demonstrate ADL Tasks, 2-Verbalize Understanding, 3- ImproveStrength/Delmy 1=Demonstrate adherence to instructed precautions during ADL tasks. 2=Patient will verbalize/demonstrate understanding of assistive devices/modifications for ADL. 3=Patient will improve strength/tolerance for activity to enable patient to perform ADL's. OT Education/Plan Problem List/Assessment Assessment: Decreased Activ Tolerance, Decreased UE Strength, Dependent Transfers, Impaired Funct Balance, Impaired I ADL's, Impaired Self-Care Skills Discharge Recommendations Plan/Recommendations: Continue POC Therapy Discharge Recommendati: Intermittent Supervision, Home & Family, Post Acute OT Treatment Plan/Plan of Care Treatment,Training & Education: Yes Patient would benefit from OT for education, treatment and training to promote independence in ADL's, mobility, safety and/or upper extremity function for ADL's. Plan of Care: ADL Retraining, Caregiver Training, Functional Mobility, Group Exercise/Act as Ind, Orthotic Fitting/Training, UE Funct Exercise/Act, UE Neuromus Re-Ed/Coord, W/C Management Training Treatment Duration: Feb 06, 2020 Frequency: At least 5 of 7 days/Wk (IRF) Estimated Hrs Per Day: 1.5 hours per day Agreement: Yes Rehab Potential: Fair Time/GCodes Start Time: 07:45 Stop Time: 09:00 Total Time Billed (hr/min): 75 Billed Treatment Time 1, ADL 3 (45), EX 2 (30)= 75 GIOVANNA ARMENTA OTR Jan 29, 2020 09:06
--- NOTE | 2020-01-29 09:15 | PM&R Progress Note ---
Subjective HPI/CC On Admission Date Seen by Provider: Jan 29, 2020 Time Seen by Provider: 09:00 Subjective/Events-last exam Completed IV antibiotics Dr. Meneses evaluated the hematoma Pt will be assessing him for a right knee brace Used and AFO brace before but rubbed a blister so he doesn't use that anymore Reviewed therapy notes Checked meds and labs Conferred with director card of Systems General: Fatigue Musculoskeletal: leg pain Objective Exam Vital Signs Vital Signs Date Time Temp Pulse Resp B/P (MAP) Pulse Ox O2 Delivery O2 Flow Rate FiO2 01/29/20 16:28 36.9 75 14 131/81 (98) 96 Room Air Capillary Refill : Less Than 3 SecondsLess Than 3 Seconds General Appearance: No Apparent Distress, WD/WN, Chronically ill HEENT: PERRL/EOMI, Normal ENT Inspection, Pharynx Normal Neck: Full Range of Motion, Normal Inspection, Non Tender, Supple Respiratory: Chest Non Tender, Lungs Clear, No Accessory Muscle Use, No Respiratory Distress, Decreased Breath Sounds Cardiovascular: Regular Rate, Rhythm, Normal Peripheral Pulses, Other (Right leg edema ) Gastrointestinal: Normal Bowel Sounds, No Organomegaly, No Pulsatile Mass, Non Tender, Soft Back: Normal Inspection, No CVA Tenderness, No Vertebral Tenderness Extremity: Normal Capillary Refill, Normal Inspection, Normal Range of Motion (limited ROM right leg), Non Tender, No Calf Tenderness, Pedal Edema (Right shows minor swelling ) Neurologic/Psychiatric: Alert, Oriented x3, No Motor/Sensory Deficits, Normal Mood/Affect, Motor Weakness (right sided chronic) Skin: Normal Color, Warm/Dry Lymphatic: No Adenopathy Results/Procedures Lab Patient resulted labs reviewed. FIM Transfers Therapy Code Descriptions/Definitions Functional [place] Measure: 0=Not Assessed/NA 4=Minimal Assistance 1=Total Assistance 5=Supervision or Setup 2=Maximal Assistance 6=Modified [place] 3=Moderate Assistance 7=Complete IndependenceSCALE: Activities may be completed with or without assistive devices. 7-Evbzifailj-nebtqwt completes the activity by him/herself with no assistance from a helper. 5-Set-up or Clean-up Assistance-helper sets up or cleans up; patient completes activity. [place] assists only prior to or following the activity. 4-Supervision or Touching Assistance-helper provides verbal cues and/or touching/steadying and/or contact guard assistance as patient completes activity. Assistance may be provided throughout the activity or intermittently. 3-Partial/Moderate Assistance-helper does LESS THAN HALF the effort. [place] lifts, holds or supports trunk or limbs, but provides less than half the effort. 2-Substantial/Maximal Assistance-helper does MORE THAN HALF the effort. [place] lifts or holds trunk or limbs and provides more than half the effort. 3-Pfocjvjuy-lkikuk does ALL the effort. Patient does none of the effort to complete the activity. Or, the assistance of 2 or more helpers is required for the patient to complete the activity. If activity was not attempted, code reason: 7-Patient Refused. 9-Not Applicable-not attempted and the patient did not perform the activity before the current illness, exacerbation or injury. 10-Not Attempted due to Environmental Limitations-(lack of equipment, weather restraints, etc.). 88-Not Attempted due to Medical Conditions or Safety Concerns. Roll Left to Right (QC): 3 Sit to Lying (QC): 3 Sit to Stand (QC): 3 Chair/Pjl-qe-Loneo Xfer(QC): 3 Car Transfer (QC): 3 Gait Training Does the Patient Walk?: Yes Distance: 75' Walk 10 feet (QC): 4 Walk 50 ft with 2 Turns(QC): 4 Walk 150 ft (QC): 88 Walking 10ft/uneven surface-QC: 88 Gait Persons Needed: 1 Gait Assistive Device: Walker Haresh Wheelchair Training Does the Pt Use a Wheelchair?: Yes Distance: 150' Wheel 50 ft with 2 turns (QC): 6 Wheel 150 ft (QC): 6 Type of Wheelchair: Manual Stair Training 1 Step (curb) (QC): 88 4 Steps (QC): 88 12 Steps (QC): 88 Balance Picking up an Object (QC): 88 ADL-Treatment Eating (QC): 6 Oral Hygiene (QC): 6 (completes in w/c in front of sink) Bathing Location: R Arm, L Upper Leg, R Upper Leg, L Lower Leg (including foot), R Lower Leg (including foot), Chest, Abdomen, Perineal Area Shower/Bathe Self (QC): 3 (Min A for L underarm/ arm and bottom. Pt utilizes LHS for LE's) Upper Body Dressing (QC): 6 Lower Body Dressing (QC): 3 (S/u for breif donningMin A pant donning on R LE (use of dewaterer operator)) On/Off Footwear (QC): 2 (Pt completes L sock with cues for positioning, pt completes R sock with max A) Toileting Hygiene (QC): 3 (min A and CGA through hygiene) Toilet Transfer (QC): 7 Assessment/Plan Assessment and Plan Assess & Plan/Chief Complaint Assessment: s/p right hip fracture FUO at [facility] completing abx IV yesterday h/o CVA with right sided weakness HTN DM HTN CRI Entercolitis Right hip incision redness hematoma assessed by general surgery Plan: IRF protocol Bladder and bowel management Manage incontinence Pain control Complete IV abx yesterday Appreciate Dr Meneses's reassurance (1) Hip fracture (2) History of CVA with residual deficit (3) Right sided weakness (4) Hypertension (5) Diabetes (6) Hyperlipemia (7) Renal insufficiency (8) Anemia (9) Ileus (10) Colonic obstruction (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
[2020-01-29] MEDS: amLODIPine 5 MG (NORVASC) TAB PO SCH (09:46)
[2020-01-29] MEDS: meTOprolol TARTRATE 50 MG (LOPRESSOR) TAB PO SCH ×2 (09:46→20:53)
[2020-01-29 09:47] VITALS: BP 124/87
--- NOTE | 2020-01-29 10:31 | Speech Therapy Daily Note ---
Speech Daily Progress Note Subjective Date Seen by Provider: Jan 29, 2020 Time Seen by Provider: 09:15 Patient was alert, upbeat, and cooperative for all therapy tasks. Patient reported that he was feeling better today and not as down on himself. Patient sat upright in his chair for the duration of treatment. Objective Patient completed word-finding tasks pertaining to categorical items with 70% accuracy and minimal cues. Patient completed memory tasks pertaining to occupation and family history with 80% accuracy and minimal cues. Assessment Assessment Current Status: Good Progress Treatment Plan Continue Plan of Care Speech Short Term Goals Short Term Goals Short Term Goals 1. The patient will complete memory tasks at 90% accuracy with minimal cues. 2. The patient will complete problem-solving tasks at 90% accuracy with minimal cues. 3. The patient will complete safety awareness tasks at 90% accuracy with minimal cues. 4. The patient will complete word-finding tasks at 90% accuracy with minimal cues. Speech Conference Organizer Goals Conference Organizer Goals Patient will improve cognitive-communication necessary for safety and daily living tasks with minimal assist. Speech-Plan Patient/Family Goals Patient/Family Goals: Patient reported wishing to return home to prior level of independence and mobility. Treatment Plan Speech Therapy Treatment Plan: Continue Plan of Care Treatment Duration: Feb 01, 2020 Frequency: 5 times per week Estimated Hrs Per Day: .5 hour per day Rehab Potential: Fair Barriers to Learning: Moderate cognitive deficits Pt/Family Agrees to Plan: Yes Safety Risks/Education Education Topics Provided: Continued utilization of external memory aids to recall important information Time Speech Therapy Time In: 09:15 Speech Therapy Time Out: 10:00 Total Billed Time: 45 Billed Treatment Time 1, OSVALDO [place] Jan 29, 2020 10:31
--- NOTE | 2020-01-29 11:53 | Physical Therapy Daily Note ---
PT Daily Note-Current Subjective Patient in recliner pre tx, agrees to PT, has no complaints of pain at rest. Patient requests an AFO to help him ambulate because ambulating without one is causing a lot of pain due to right knee hyperextension and buckling. His quality of ambulation and been declining recently. However, he has a very large blister on his right heel which will certainly burst open if he uses one of our AFO's. He cannot ambulate without one at this time due to pain in right knee. This is explained to nurse to pass on to doctor and written here for doctor to review. Appearance Patient in recliner post tx with nurse call, phone, tray, all needs met. Mental Status Patient Orientation: Person, Place, Situation Transfers SCALE: Activities may be completed with or without assistive devices. 2-Moazxausgz-frbhjzn completes the activity by him/herself with no assistance from a helper. 5-Set-up or Clean-up Assistance-helper sets up or cleans up; patient completes activity. [place] assists only prior to or following the activity. 4-Supervision or Touching Assistance-helper provides verbal cues and/or touching/steadying and/or contact guard assistance as patient completes activity. Assistance may be provided throughout the activity or intermittently. 3-Partial/Moderate Assistance-helper does LESS THAN HALF the effort. [place] lifts, holds or supports trunk or limbs, but provides less than half the effort. 2-Substantial/Maximal Assistance-helper does MORE THAN HALF the effort. [place] lifts or holds trunk or limbs and provides more than half the effort. 7-Ejahrndje-sjvtla does ALL the effort. Patient does none of the effort to complete the activity. Or, the assistance of 2 or more helpers is required for the patient to complete the activity. If activity was not attempted, code reason: 7-Patient Refused. 9-Not Applicable-not attempted and the patient did not perform the activity before the current illness, exacerbation or injury. 10-Not Attempted due to Environmental Limitations-(lack of equipment, weather restraints, etc.). 88-Not Attempted due to Medical Conditions or Safety Concerns. Sit to Stand (QC): 3 Chair/Gmi-hq-Smrgi Xfer(QC): 3 Min assist for sit to stand, min assist for stand pivot transfers to the right side but CGA to the left. Weight Bearing Right Lower Extremity: Right Weight Bearing/Tolerated Left Lower Extremity: Left Full Weight Bearing Wheelchair Training Does the Pt Use a Wheelchair?: Yes Wheel 50 ft with 2 turns (QC): 4 Wheel 150 ft (QC): 4 Type of Wheelchair: Manual SBA Exercises Seated Therapy Exercises: Ankle pumps (not RLE), Long arc quads (AAROM on the right side), Hip flexion, Hip abd/add (squeeze pillow for hip add) Standing: Hip Abduction, 3 way Ex=Flex, Abd, Ext (just flexion), Marching, Mini squats Treatments transfers, LE exercise, WC mobility, Assessment Current Status: Poor Progress obtained AFO for patient and modified shoe so it will be more likely to fit, however patient cannot wear it at this time due to blister PT Short Term Goals Short Term Goals Time Frame: Jan 30, 2020 Roll Left & Right: 6 Sit to lyin Lying to sitting on side of be: 4 Sit to stand: 4 Chair/djw-sn-tmksn transfer: 4 Walk 10 feet: 4 PT Wheel Tuner Goals Wheel Tuner Goals PT Wheel Tuner Goals Time Frame: Feb 13, 2020 Roll Left & Right (QC): 6 Sit to Lying (QC): 6 Lying-Sitting on Side/Bed(QC): 6 Sit to Stand (QC): 4 (SBA) Chair/Cod-ne-Dusku Xfer(QC): 4 (SBA) Toilet Transfer (QC): 4 (SBA) Car Transfer (QC): 4 (SBA) Does the Patient Walk: Yes Walk 10 feet (QC): 4 Walk 50ft with 2 Turns (QC): 4 Walking 10ft on Uneven Surface: 4 1 Step (curb) (QC): 4 PT Plan Problem List Problem List: Activity Tolerance, Functional Strength, Safety, Balance, Gait, Transfer, Bed Mobility, ROM Treatment/Plan Treatment Plan: Continue Plan of Care Treatment Plan: Bed Mobility, Education, Functional Activity Delmy, Functional Strength, Group Therapy, Gait, Safety, Therapeutic Exercise, Transfers Treatment Duration: Feb 13, 2020 Frequency: At least 5 of 7 days/Wk (IRF) Estimated Hrs Per Day: 1.5 hours per day Patient and/or Family Agrees t: Yes Safety Risks/Education Patient Education: Transfer Techniques, Correct Positioning, W/C Management, Safety Issues Teaching Recipient: Patient Teaching Methods: Demonstration, Discussion Response to Teaching: Reinforcement Needed Time/GCodes Time In: 1100 Time Out: 1200 Total Billed Treatment Time: 60 Total Billed Treatment 1 visit EX 30' FA 30' BROOKE WORLEY PT Jan 29, 2020 11:53
--- NOTE | 2020-01-29 13:31 | Physical Therapy Daily Note ---
PT Daily Note-Current Subjective Patient in recliner pre tx, agrees to PT, has only 2/10 pain in right knee during ambulation. Appearance Patient in recliner post tx with nurse call, phone, tray, family in the room. Mental Status Patient Orientation: Normal For Age Transfers SCALE: Activities may be completed with or without assistive devices. 3-Wdaeawjoty-grllbnj completes the activity by him/herself with no assistance from a helper. 5-Set-up or Clean-up Assistance-helper sets up or cleans up; patient completes activity. [place] assists only prior to or following the activity. 4-Supervision or Touching Assistance-helper provides verbal cues and/or touching/steadying and/or contact guard assistance as patient completes activity. Assistance may be provided throughout the activity or intermittently. 3-Partial/Moderate Assistance-helper does LESS THAN HALF the effort. [place] lift s, holds or supports trunk or limbs, but provides less than half the effort. 2-Substantial/Maximal Assistance-helper does MORE THAN HALF the effort. [place] lifts or holds trunk or limbs and provides more than half the effort. 5-Ezlizcguu-faahyr does ALL the effort. Patient does none of the effort to complete the activity. Or, the assistance of 2 or more helpers is required for the patient to complete the activity. If activity was not attempted, code reason: 7-Patient Refused. 9-Not Applicable-not attempted and the patient did not perform the activity before the current illness, exacerbation or injury. 10-Not Attempted due to Environmental Limitations-(lack of equipment, weather restraints, etc.). 88-Not Attempted due to Medical Conditions or Safety Concerns. Sit to Stand (QC): 4 Chair/Ewz-ky-Frrrx Xfer(QC): 4 Weight Bearing Right Lower Extremity: Right Weight Bearing/Tolerated Left Lower Extremity: Left Full Weight Bearing Gait Training Distance: 50' Walk 10 feet (QC): 4 Walk 50 ft with 2 Turns(QC): 4 Gait Persons Needed: 1 Gait Assistive Device: Walker Haresh CGA, knee buckling and hyperextension, slow, step to gait with right leg leading Treatments ambulation. Tried knee cage to help control knee hyperextension but it would not fit. Used selvin wrap to provide some compression on right knee during ambulation. Dr. Crocker is supposed to assess patient later. Hopefully he can prescribe a boot to help protect heel. Patient also may need to try an adjustable knee immobilizer Assessment Current Status: Poor Progress very unstable right knee during ambulation PT Short Term Goals Short Term Goals Time Frame: Jan 30, 2020 Roll Left & Right: 6 Sit to lyin Lying to sitting on side of be: 4 Sit to stand: 4 Chair/ppt-qz-sbifp transfer: 4 Walk 10 feet: 4 PT Mcc Goals [employer] Grinder Goals PT Mcc Goals Time Frame: Feb 13, 2020 Roll Left & Right (QC): 6 Sit to Lying (QC): 6 Lying-Sitting on Side/Bed(QC): 6 Sit to Stand (QC): 4 (SBA) Chair/Bjd-ce-Srqjl Xfer(QC): 4 (SBA) Toilet Transfer (QC): 4 (SBA) Car Transfer (QC): 4 (SBA) Does the Patient Walk: Yes Walk 10 feet (QC): 4 Walk 50ft with 2 Turns (QC): 4 Walking 10ft on Uneven Surface: 4 1 Step (curb) (QC): 4 PT Plan Problem List Problem List: Activity Tolerance, Functional Strength, Safety, Balance, Gait, Transfer, Bed Mobility, ROM Treatment/Plan Treatment Plan: Continue Plan of Care Treatment Plan: Bed Mobility, Education, Functional Activity Delmy, Functional Strength, Group Therapy, Gait, Safety, Therapeutic Exercise, Transfers Treatment Duration: Feb 13, 2020 Frequency: At least 5 of 7 days/Wk (IRF) Estimated Hrs Per Day: 1.5 hours per day Patient and/or Family Agrees t: Yes Safety Risks/Education Patient Education: Gait Training, Transfer Techniques, Correct Positioning, Safety Issues Teaching Recipient: Patient Teaching Methods: Demonstration, Discussion Response to Teaching: Reinforcement Needed Time/GCodes Time In: 1300 Time Out: 1330 Total Billed Treatment Time: 30 Total Billed Treatment 1 visit FA 20' GT 10' BROOKE WORLEY PT Jan 29, 2020 13:31
--- NOTE | 2020-01-29 13:54 | NUR ---
DR. CANAS NOTIFIED OF CONSULT FOR RIGHT HEEL BLISTER.
[2020-01-29 16:28] VITALS: BP 131/81
--- NOTE | 2020-01-29 18:16 | NUR ---
DR. CANAS HERE TO ASSESS RIGHT HEEL BLISTER. RECOMMENDS CONTINUING SAME TREATMENT... ALLEVYN TO RIGHT HEEL AND PRIMO OFFLOADING HEEL PROTECTOR BOOT WHEN IN BED. DR. CANAS STATES THAT NOTHING ABOUT THIS WOUND SHOULD PREVENT WEIGHT BEARING ON THE RIGHT SIDE. MAY AMBULATE LONG ALLEVYN IS ON TO PROTECT BLISTER. DOES NOT RECOMMEND WEARING AN AFO OF ANY KIND OR ANY SORT OF CAM BOOT. RECOMMENDS THAT THERAPY LOOK IN TO SOME SORT OF KNEE IMMOBILIZER TO HELP WITH KNEE HYPEREXTENSION.
--- NOTE | 2020-01-29 18:18 | Wound Care Assessment ---
Wound Care Assessment Date Seen by Provider: Jan 29, 2020 Time Seen by Provider: 18:00 Chief Complaint Wound R heel. HPI The patient is a 64 year old male with a Stage 2 pressure ulcer of the R heel, present on admission to this facility, due to an ill-fitting AFO prosthesis for foot-drop due to remote stroke. He had recently had repair of R hip fracture, and in his recovery was using an old prosthesis, which he states had never fit well. The resulting R heel blister is intact, has some bloody fluid in it, is not infected, and should be allowed to desiccate spontaneously. Further use of the AFO or other device that makes contact with the foot in the area previously injured is not recommended. I would recommend that, if possible, physical therapy pursue a work-around, whereby he can walk safely without compromising the healing of his Stage 2 pressure ulcer of the R heel. History of stroke with foot drop, R. Smoking Status: Never a Smoker Alcohol Use: Denies Use Review of Systems Pulmonary: No Dyspnea Cardiovascular: No: Chest Pain Exam Vital Signs Date Time Temp Pulse Resp B/P (MAP) Pulse Ox O2 Delivery O2 Flow Rate FiO2 01/29/20 16:28 36.9 75 14 131/81 (98) 96 Room Air Capillary Refill : Less Than 3 SecondsLess Than 3 Seconds General Appearance: no apparent distress HEENT: normal ENT inspection Respiratory: no respiratory distress Extremities: other (R heel -- 4.5 x 4.5 x 0.1 cm blister with mostly clear but some purple fluid in blister.) Results Laboratory Tests 01/29/20 07:36: Glucometer 194H Assessment/Plan/Dx 1. Stage 2 pressure ulcer, R heel, stable. 2. 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 3. Recent R hip fracture with repair, now pursuing rehabilitation. Plan: would recommend ambulation as is safe without orthosis compromising injured tissue of R heel. Nothing about this ulcer should prevent weight bearing on the R leg. LIU CANAS MD Jan 29, 2020 18:18
--- NOTE | 2020-01-29 19:27 | NUR ---
GROIN IS RED. DR. JIM NOTIFIED. NEW ORDERS FOR NYSTATIN CREAM TID AND DESENEX POWDER BID.
[2020-01-29] MEDS: MELATONIN 3 MG TABLET PO PRN (20:54)
[2020-01-29] MEDS: MICONAZOLE 2% POWDER (DESENEX AF) 90 GM TOP SCH (20:54)
[2020-01-29] MEDS: NYSTATIN CREAM (MYCOSTATIN) 30 GM TUBE TP SCH (20:54)
[2020-01-30 06:00] VITALS: BP 171/95
[2020-01-30] MEDS: CATHETER FLUSH 10 ML SYR IV SCH ×3 (06:00→20:13)
[2020-01-30] MEDS: KCL 10 MEQ TAB (MICRO K) PO SCH (06:00)
--- NOTE | 2020-01-30 07:42 | Progress Note - Surgery ---
[facility] 01/30/20 0742: Subjective Date Seen by a Provider: Jan 30, 2020 Time Seen by a Provider: 07:20 Subjective/Events-last exam Patient is alert and oriented and in no acute distress. No family at bedside Patient denies pain of the right thigh and no change noticed. Erythema of the wound is still present but has not invaded beyond the outline created. No sensory changes noted over this area. Wound is well approximated and no discharge is noted. Denies the following: Leg pain, chest pain, SOB, F/C, N/V Review of Systems General: No Chills HEENT: No Visual Changes, No Eye Pain Pulmonary: No Dyspnea, No Cough Cardiovascular: No: Chest Pain, Palpitations Gastrointestinal: No: Nausea, Vomiting, Abdominal Pain Objective Exam Vital Signs Date Time Temp Pulse Resp B/P (MAP) Pulse Ox O2 Delivery O2 Flow Rate FiO2 01/30/20 06:00 37.0 78 20 171/95 (120) 96 Room Air 01/29/20 21:00 Room Air 01/29/20 16:28 36.9 75 14 131/81 (98) 96 Room Air 01/29/20 09:47 86 124/87 (99) 01/29/20 09:37 Room Air 01/29/20 08:25 95 Room Air I & O 01/30/20 07:00 Intake Total 940 ml Output Total 500 ml Balance 440 ml Capillary Refill : Less Than 3 SecondsLess Than 3 Seconds General Appearance: No Apparent Distress, WD/WN HEENT: PERRL/EOMI, Normal ENT Inspection, Pharynx Normal Neck: Full Range of Motion, Normal Inspection, Non Tender, Supple Respiratory: Chest Non Tender, No Accessory Muscle Use, No Respiratory Distress Cardiovascular: Normal Peripheral Pulses, Other (Right leg edema, currently has SCDs on ) Peripheral Pulses: 2+ Dorsalis Pedis (R), 2+ Left Dors-Pedis (L), 2+ Radial Pulses (R), 2+ Radial Pulses (L) Gastrointestinal: non tender, soft, no organomegaly Extremity: Normal Capillary Refill, No Calf Tenderness, Pedal Edema (Right leg) Neurologic/Psychiatric: Alert, Oriented x3, Normal 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 right heel ulcer- Dr. Crocker is managing continue to monitor Clinical Quality Measures DVT/VTE Risk/Contraindication: Risk Factor Score Per Nursin RFS Level Per Nursing on Admit: 4+=Very High HALLIE MENESES DO 01/30/202126: Subjective Subjective/Events-last exam No new complaints. Right leg skin incision he feels is the same. Still working with PT. Denies n/v fever sweats chills shortness of breath or chest pain. Objective Exam General Appearance: No Apparent Distress, WD/WN HEENT: PERRL/EOMI, Normal ENT Inspection Neck: Normal Inspection, Non Tender, Supple Respiratory: Chest Non Tender, No Accessory Muscle Use, No Respiratory Distress Cardiovascular: Regular Rate, Rhythm Gastrointestinal: non tender, soft, no organomegaly Extremity: Normal Capillary Refill Neurologic/Psychiatric: Alert, Oriented x3, Motor Weakness (right sided chronic) Skin: Warm/Dry, Other (skin with erythema and yellowing consistent with bruising and induration improving) Assessment/Plan Assessment/Plan Assessment/Plan right femur fx s/p right partial hip replacement hematoma/bruising right thigh wound, area stable continue to monitor do not feel is infected but watch closely Supervisory-Addendum Brief Verification & Attestation Participated in pt care: history, MDM, physical Personally performed: exam, history, MDM, supervision of care Care discussed with: Medical Student Procedures: n/a Results interpretation: Verified all documentation Verification and Attestation of Medical Student E/M Service A medical student performed and documented this service in my presence. I reviewed and verified all information documented by the medical student and made modifications to such information, when appropriate. I personally performed the physical exam and medical decision making. Hallie Meneses, Jan 30, 2020,21:27 [facility] Jan 30, 2020 07:42 HALLIE MENESES DO Jan 30, 2020 21:27
--- NOTE | 2020-01-30 08:11 | PM&R Progress Note ---
Subjective HPI/CC On Admission Date Seen by Provider: Jan 30, 2020 Time Seen by Provider: 08:30 Subjective/Events-last exam Bowels moved on 01/28. Incision looks good, just inflammation. No AFO able to be worn due to blister. Foot cushion maintained. Right knee brace helps hyper-reflexion and has made all the difference in his participation with OT and he is very thrilled about that. Nystatin cream will be placed in the folds of his abdomen and groin. Reviewed therapy notes Checked meds and labs Conferred with hazard mitigation officer of Systems Genitourinary: Incontinence Musculoskeletal: leg pain Neurological: Weakness, Numbness, Incoordination Objective Exam Vital Signs Vital Signs Date Time Temp Pulse Resp B/P (MAP) Pulse Ox O2 Delivery O2 Flow Rate FiO2 01/31/20 06:00 36.6 79 18 157/89 (111) 97 Room Air Capillary Refill : Less Than 3 SecondsLess Than 3 Seconds General Appearance: No Apparent Distress, WD/WN, Chronically ill HEENT: PERRL/EOMI, Normal ENT Inspection, Pharynx Normal Neck: Full Range of Motion, Normal Inspection, Non Tender, Supple Respiratory: Chest Non Tender, No Accessory Muscle Use, No Respiratory Distress, Decreased Breath Sounds Cardiovascular: Regular Rate, Rhythm, Normal Peripheral Pulses, Other (Right leg edema, currently has SCDs on ) Gastrointestinal: Normal Bowel Sounds, No Organomegaly, No Pulsatile Mass, Non Tender, Soft Back: Normal Inspection, No CVA Tenderness, No Vertebral Tenderness Extremity: Normal Capillary Refill, No Calf Tenderness, Pedal Edema (Right shows minor swelling ) Neurologic/Psychiatric: Alert, Oriented x3, Normal Mood/Affect, Motor Weakness (right sided chronic) Skin: Normal Color, Warm/Dry Lymphatic: No Adenopathy Results/Procedures Lab Patient resulted labs reviewed. FIM Transfers Therapy Code Descriptions/Definitions Functional [place] Measure: 0=Not Assessed/NA 4=Minimal Assistance 1=Total Assistance 5=Supervision or Setup 2=Maximal Assistance 6=Modified [place] 3=Moderate Assistance 7=Complete IndependenceSCALE: Activities may be completed with or without assistive devices. 6-Zourjnibcp-ocgoilh completes the activity by him/herself with no assistance from a helper. 5-Set-up or Clean-up Assistance-helper sets up or cleans up; patient completes activity. [place] assists only prior to or following the activity. 4-Supervision or Touching Assistance-helper provides verbal cues and/or touching/steadying and/or contact guard assistance as patient completes activity. Assistance may be provided throughout the activity or intermittently. 3-Partial/Moderate Assistance-helper does LESS THAN HALF the effort. [place] lifts, holds or supports trunk or limbs, but provides less than half the effort. 2-Substantial/Maximal Assistance-helper does MORE THAN HALF the effort. [place] lifts or holds trunk or limbs and provides more than half the effort. 4-Ztavzdowv-bryvnb does ALL the effort. Patient does none of the effort to complete the activity. Or, the assistance of 2 or more helpers is required for the patient to complete the activity. If activity was not attempted, code reason: 7-Patient Refused. 9-Not Applicable-not attempted and the patient did not perform the activity before the current illness, exacerbation or injury. 10-Not Attempted due to Environmental Limitations-(lack of equipment, weather restraints, etc.). 88-Not Attempted due to Medical Conditions or Safety Concerns. Roll Left to Right (QC): 3 Sit to Lying (QC): 3 Sit to Stand (QC): 4 Chair/Tgv-ij-Enytr Xfer(QC): 4 Car Transfer (QC): 3 Gait Training Does the Patient Walk?: Yes Distance: 50' Walk 10 feet (QC): 4 Walk 50 ft with 2 Turns(QC): 4 Walk 150 ft (QC): 88 Walking 10ft/uneven surface-QC: 88 Gait Persons Needed: 1 Gait Assistive Device: Walker Haresh Wheelchair Training Does the Pt Use a Wheelchair?: Yes Distance: 150' Wheel 50 ft with 2 turns (QC): 4 Wheel 150 ft (QC): 4 Type of Wheelchair: Manual Stair Training 1 Step (curb) (QC): 88 4 Steps (QC): 88 12 Steps (QC): 88 Balance Picking up an Object (QC): 88 ADL-Treatment Eating (QC): 6 Oral Hygiene (QC): 6 (completes in w/c in front of sink) Bathing Location: R Arm, L Upper Leg, R Upper Leg, L Lower Leg (including foot), R Lower Leg (including foot), Chest, Abdomen, Perineal Area Shower/Bathe Self (QC): 3 (Min A for L underarm/ arm and bottom. Pt utilizes LHS for LE's) Upper Body Dressing (QC): 6 Lower Body Dressing (QC): 3 (S/u for breif donningMin A pant donning on R LE (use of vacuum extractor operator)) On/Off Footwear (QC): 2 (Pt completes L sock with cues for positioning, pt completes R sock with max A) Toileting Hygiene (QC): 3 (min A and CGA through hygiene) Toilet Transfer (QC): 7 Assessment/Plan Assessment and Plan Assess & Plan/Chief Complaint Assessment: s/p right hip fracture FUO at [facility] completing abx IV h/o CVA with right sided weakness HTN DM HTN CRI Entercolitis Right hip incision redness hematoma assessed by general surgery Plan: IRF protocol Bladder and bowel management Manage incontinence Pain control Complete IV abx yesterday Appreciate Dr Meneses's reassurance Knee brace to prevent hyperreflexia (1) Hip fracture (2) History of CVA with residual deficit (3) Right sided weakness (4) Hypertension (5) Diabetes (6) Hyperlipemia (7) Renal insufficiency (8) Anemia (9) Ileus (10) Colonic obstruction (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
[2020-01-30] MEDS: MULTIVIT W/MINERALS TAB (THERAGRAN M) PO SCH (08:59)
[2020-01-30] MEDS: ENOXAPARIN 40 MG/0.4 ML (LOVENOX) SYR SC SCH (08:59)
[2020-01-30] MEDS: SENNA W/DOCUSATE (SENOKOT S) TABLET PO SCH ×2 (08:59→20:12)
[2020-01-30] MEDS: DOCUSATE SODIUM 100 MG (COLACE) CAP PO SCH ×2 (08:59→20:11)
[2020-01-30] MEDS: glipiZIDE 5 MG (GLUCOTROL) TAB PO SCH (09:00)
[2020-01-30] MEDS: PANTOPRAZOLE 40 MG (PROTONIX) TAB PO SCH (09:00)
[2020-01-30] MEDS: amLODIPine 5 MG (NORVASC) TAB PO SCH (09:02)
[2020-01-30] MEDS: meTOprolol TARTRATE 50 MG (LOPRESSOR) TAB PO SCH ×2 (09:02→20:11)
[2020-01-30] MEDS: NYSTATIN CREAM (MYCOSTATIN) 30 GM TUBE TP SCH ×3 (09:03→20:12)
[2020-01-30] MEDS: MICONAZOLE 2% POWDER (DESENEX AF) 90 GM TOP SCH ×2 (09:03→20:12)
[2020-01-30] MEDS: BISACODYL 10 MG SUPP (DULCOLAX) RC SCH (09:04)
[2020-01-30] MEDS: polyethylene glycoL POWDER 17 GM (MIRALAX) PACK PO SCH ×2 (09:04→20:12)
--- NOTE | 2020-01-30 09:16 | Occupational Ther Daily Note ---
OT Current Status-Daily Note Subjective Pt seen in recliner chair, states slept well though has "kink" in neck. Pt agrees to OT tx session with goals of stretching/ strengthening/ ADLs/ balance. Pt denies pain throughout. ADL-Treatment Therapy Code Descriptions/Definitions Functional [place] Measure: 0=Not Assessed/NA 4=Minimal Assistance 1=Total Assistance 5=Supervision or Setup 2=Maximal Assistance 6=Modified [place] 3=Moderate Assistance 7=Complete IndependenceSCALE: Activities may be completed with or without assistive devices. 7-Ctfehaseow-wuksetv completes the activity by him/herself with no assistance from a helper. 5-Set-up or Clean-up Assistance-helper sets up or cleans up; patient completes activity. [place] assists only prior to or following the activity. 4-Supervision or Touching Assistance-helper provides verbal cues and/or touching/steadying and/or contact guard assistance as patient completes activity. Assistance may be provided throughout the activity or intermittently. 3-Partial/Moderate Assistance-helper does LESS THAN HALF the effort. [place] lifts, holds or supports trunk or limbs, but provides less than half the effort. 2-Substantial/Maximal Assistance-helper does MORE THAN HALF the effort. [place] lifts or holds trunk or limbs and provides more than half the effort. 2-Sxphbghls-jcvvrn does ALL the effort. Patient does none of the effort to complete the activity. Or, the assistance of 2 or more helpers is required for the patient to complete the activity. If activity was not attempted, code reason: 7-Patient Refused. 9-Not Applicable-not attempted and the patient did not perform the activity before the current illness, exacerbation or injury. 10-Not Attempted due to Environmental Limitations-(lack of equipment, weather restraints, etc.). 88-Not Attempted due to Medical Conditions or Safety Concerns. Eating (QC): 6 Oral Hygiene (QC): 6 Shower/Bathe Self (QC): 7 Upper Body Dressing (QC): 7 Lower Body Dressing (QC): 3 (Pt completes LB dressing with min A for RLE threading and maintenance of precautions. Pt then requires CGA during pulling over hips.) On/Off Footwear: 7 Toileting Hygiene (QC): 4 (CGA) Toilet Transfer (QC): 4 (CGA from w/c to commode.) Other Treatment Pt completes pant donning, cues for use of shipping lead as pt begins to reach down to don pants. Pt then requires cues for not crossing legs/ abduction of R hip as he attempts to pull up to knee. Pt educated on risks of breaking precautions. Pt able to state 2/3 precautions. Pt then sit to stand to w/c with SBA, completes oral hygiene/ hair grooming in front of sink. Pt completes w/c mob with s/u and IND to therapy gym. Pt completes AAROM in gravity eliminated position, educated on benefits of AAROM and different uses of non-friction surfaces to move RUE for increased stretch/ increased strengthening. Pt unable to complete AROM of elbow/ hand, completes 10 sets of shoulder horizontal ab/ adduction with skilled tactile cues for mm activation. Pt completes theraband ex with LUE: 25 reps of bicep curls, scaption, horizontal ab/ adduction. Pt then stands for ~10 min session, completes peg doff/ donning with LUE (standing freely with CGA), pins placed around pants/ shirt, pt able to doff all and replace back onto clothes pin rack. Pt returns to room (then able to state 2/3 precautions once more), requests bathroom and completes BM on commode. Left with nursing in room, pt notified to pull string, all needs met. Education OT Patient Education: Correct positioning, Exercise program, Home exercise program, Modified ADL techniques, Purpose of tx/functional activities, Reviewed precautions, Safety issues, Use of adapted equipment Teaching Recipient: Patient Teaching Methods: Demonstration, Discussion Response to Teaching: Verbalize Understanding, Return Demonstration OT Short Term Goals Short Term Goals Time Frame: Jan 30, 2020 Oral hygiene: 6 Lower body dressin Putting on/taking off footwear: 3 OT Fpc Goals Fpc Goals Time Frame: Feb 06, 2020 Eating (QC): 6 (met) Oral Hygiene (QC): 6 (met) Toileting Hygiene (QC): 6 Shower/Bathe Self (QC): 6 Upper Body Dressing (QC): 6 Lower Body Dressing (QC): 6 On/Off Footwear (QC): 6 Additional Goals: 1-Demonstrate ADL Tasks, 2-Verbalize Understanding, 3- ImproveStrength/Delmy 1=Demonstrate adherence to instructed precautions during ADL tasks. 2=Patient will verbalize/demonstrate understanding of assistive devices/modifications for ADL. 3=Patient will improve strength/tolerance for activity to enable patient to perform ADL's. OT Education/Plan Problem List/Assessment Assessment: Decreased Activ Tolerance, Decreased UE Strength, Edema, Impaired Funct Balance, Impaired I ADL's, Impaired Self-Care Skills Discharge Recommendations Plan/Recommendations: Continue POC Therapy Discharge Recommendati: Intermittent Supervision, Home & Family Equpiment Recommendations-D/C: Hip Kit Treatment Plan/Plan of Care Treatment,Training & Education: Yes Patient would benefit from OT for education, treatment and training to promote independence in ADL's, mobility, safety and/or upper extremity function for ADL's. Plan of Care: ADL Retraining, Caregiver Training, Functional Mobility, Group Exercise/Act as Ind, Orthotic Fitting/Training, UE Funct Exercise/Act, UE Neuromus Re-Ed/Coord, W/C Management Training Treatment Duration: Feb 06, 2020 Frequency: At least 5 of 7 days/Wk (IRF) Estimated Hrs Per Day: 1.5 hours per day Agreement: Yes Rehab Potential: Fair Time/GCodes Start Time: 08:00 Stop Time: 09:00 Total Time Billed (hr/min): 60 Billed Treatment Time 1, ADL (15), EX 3 (45)= 60 GIOVANNA ARMENTA OTR Jan 30, 2020 09:16
--- NOTE | 2020-01-30 10:09 | Physical Therapy Daily Note ---
PT Daily Note-Current Subjective Patient in WC pre tx, agrees to PT, has no complaints of pain at rest. Patient has been cleared to ambulate by Dr. Crocker and we will try a knee immobilizer to try to support his right knee during ambulation. Appearance Patient in recliner post tx with nurse call, phone, tray, all needs met. Mental Status Patient Orientation: Person, Place, Situation Transfers SCALE: Activities may be completed with or without assistive devices. 6-Gqlilwtsky-ljpnusj completes the activity by him/herself with no assistance from a helper. 5-Set-up or Clean-up Assistance-helper sets up or cleans up; patient completes activity. [place] assists only prior to or following the activity. 4-Supervision or Touching Assistance-helper provides verbal cues and/or touching/steadying and/or contact guard assistance as patient completes activity. Assistance may be provided throughout the activity or intermittently. 3-Partial/Moderate Assistance-helper does LESS THAN HALF the effort. [place] lifts, holds or supports trunk or limbs, but provides less than half the effort. 2-Substantial/Maximal Assistance-helper does MORE THAN HALF the effort. [place] lifts or holds trunk or limbs and provides more than half the effort. 8-Urthtzrxj-vhzduh does ALL the effort. Patient does none of the effort to complete the activity. Or, the assistance of 2 or more helpers is required for the patient to complete the activity. If activity was not attempted, code reason: 7-Patient Refused. 9-Not Applicable-not attempted and the patient did not perform the activity before the current illness, exacerbation or injury. 10-Not Attempted due to Environmental Limitations-(lack of equipment, weather restraints, etc.). 88-Not Attempted due to Medical Conditions or Safety Concerns. Sit to Stand (QC): 4 Chair/Fok-dr-Klgdq Xfer(QC): 4 Weight Bearing Right Lower Extremity: Right Weight Bearing/Tolerated Left Lower Extremity: Left Full Weight Bearing Gait Training Distance: 100'x2 Walk 10 feet (QC): 4 Walk 50 ft with 2 Turns(QC): 4 Gait Persons Needed: 1 Gait Assistive Device: Walker Haresh follow, improved knee buckling and hyperextension, mostly step to with right leg leading, slow but steady ambulation Wheelchair Training Does the Pt Use a Wheelchair?: Yes Wheel 50 ft with 2 turns (QC): 5 Type of Wheelchair: Manual 100'x2 Exercises Standin way Ex=Flex, Abd, Ext (not extension), Marching, Mini squats Standing Reps: 15 (only right leg except for mini-squats) NuStep Minutes: 10 NuStep Workload: 4 (adjusted to not violate 90 degree limit of hip flexion) Treatments WC mobility, transfers, ambulation, functional strengthening Assessment Current Status: Fair Progress improved ambulation PT Short Term Goals Short Term Goals Time Frame: Jan 30, 2020 Roll Left & Right: 6 Sit to lyin Lying to sitting on side of be: 4 Sit to stand: 4 Chair/zyp-fn-pycfp transfer: 4 Walk 10 feet: 4 PT Cube Machine Tender Goals Custodial Goals PT Cube Machine Tender Goals Time Frame: Feb 13, 2020 Roll Left & Right (QC): 6 Sit to Lying (QC): 6 Lying-Sitting on Side/Bed(QC): 6 Sit to Stand (QC): 4 (SBA) Chair/Hxe-xo-Nfnjt Xfer(QC): 4 (SBA) Toilet Transfer (QC): 4 (SBA) Car Transfer (QC): 4 (SBA) Does the Patient Walk: Yes Walk 10 feet (QC): 4 Walk 50ft with 2 Turns (QC): 4 Walking 10ft on Uneven Surface: 4 1 Step (curb) (QC): 4 PT Plan Problem List Problem List: Activity Tolerance, Functional Strength, Safety, Balance, Gait, Transfer, Bed Mobility, ROM Treatment/Plan Treatment Plan: Continue Plan of Care Treatment Plan: Bed Mobility, Education, Functional Activity Delmy, Functional Strength, Group Therapy, Gait, Safety, Therapeutic Exercise, Transfers Treatment Duration: Feb 13, 2020 Frequency: At least 5 of 7 days/Wk (IRF) Estimated Hrs Per Day: 1.5 hours per day Patient and/or Family Agrees t: Yes Safety Risks/Education Patient Education: Gait Training, Transfer Techniques, Correct Positioning, W/C Management, Safety Issues Teaching Recipient: Patient Teaching Methods: Demonstration, Discussion Response to Teaching: Reinforcement Needed Time/GCodes Time In: 0900 Time Out: 1000 Total Billed Treatment Time: 60 Total Billed Treatment 1 visit GT 20' EX 30' FA 10' BROOKE WORLEY PT Jan 30, 2020 10:09
--- NOTE | 2020-01-30 12:13 | Speech Therapy Daily Note ---
Speech Daily Progress Note Subjective Date Seen by Provider: Jan 30, 2020 Time Seen by Provider: 10:45 Patient was alert, content, and cooperative for all therapy tasks. Patient reported that he was feeling much better today and had a positive outlook on his therapy. Patient sat upright in his chair for the duration of treatment. Objective Patient completed memory tasks pertaining to immediate and delayed recall of a wilmer with 90% accuracy and moderate cues. Patient completed word-finding tasks pertaining to categorical items with 80% accuracy and moderate cues. Assessment Assessment Current Status: Good Progress Treatment Plan Continue Plan of Care Speech Short Term Goals Short Term Goals Short Term Goals 1. The patient will complete memory tasks at 90% accuracy with minimal cues. 2. The patient will complete problem-solving tasks at 90% accuracy with minimal cues. 3. The patient will complete safety awareness tasks at 90% accuracy with minimal cues. 4. The patient will complete word-finding tasks at 90% accuracy with minimal cues. Speech Diamond Driller Goals Diamond Driller Goals Patient will improve cognitive-communication necessary for safety and daily living tasks with minimal assist. Speech-Plan Patient/Family Goals Patient/Family Goals: Patient reported wanting to return to prior level of independence and mobility. Treatment Plan Speech Therapy Treatment Plan: Continue Plan of Care Treatment Duration: Feb 01, 2020 Frequency: 5 times per week Estimated Hrs Per Day: .5 hour per day Rehab Potential: Fair Barriers to Learning: Moderate cognitive deficits Pt/Family Agrees to Plan: Yes Safety Risks/Education Teaching Recipient: Patient Teaching Methods: Demonstration, Discussion Response to Teaching: Verbalize Understanding Education Topics Provided: Continued utilization of internal and external memory aids to increase recall of important information Time Speech Therapy Time In: 10:45 Speech Therapy Time Out: 11:30 Total Billed Time: 45 Billed Treatment Time 1DAHLIA BETHANIA ST Jan 30, 2020 12:13
--- NOTE | 2020-01-30 14:25 | NUR ---
RN NOTIFIED BY PCT, PATIENT HAS HAD CONTROLLED FALL TO THE FLOOR. PT VOICES DENIES PAIN. VITAL SIGNS 147, hr 69, O2 97%, RESP 18. NO SKIN TEARS NOTED, BLISTER rt HEEL STILL INTACT. DR. JIM AND LEARNING COACH NOTIFIED. POST FALL HUDDLE COMPLETE. , MK NOTIFIED. THANKED THIS RN FOR CALLING, STATES SHE WAS PLANNING TO COME UP WITHIN THE NEXT HOUR TO VISIT, WILL ASK QUESTIONS AT THAT TIME IF THEY HAVE ANY FURTHER QUESTIONS. WILL CONTINUE TO MONITOR./
--- NOTE | 2020-01-30 14:42 | Therapy Group Daily Note ---
Therapy Daily Group Note Patient Education Topic Exercises, Other List Below (ARU description, handwashing) Exercises LE Seated Exercise, UE Exercise Session Ratio (pt:therapist): 3:1 Goal of Session: Education on ARU Expectations, UE/LE Strengthing Goal Met for this Session: Yes Pt Benefit of Group: Contributions to Others, Increased Functional Strength, Improved Cognition, Recognition of Peers, Socialization Other/Notes Pt propelled self in w/c to ARU [facility] area for OT/PT group. Group consisted of introductions (name, place living, what did you want to grow up to be), socialization, pt lead UE/LE seated exercises, education on benefits of exercise and handwashing. Pt introduced self appropriately and actively listened to peers. Pt able to lead one exercise for group and tolerated completing other exercises, assist needed for R UE. Pt acknowledge understanding of exercises by verbalizing understanding and given own personal strategies to complete. After session, pt sitting up in w/c with call light/phone in reach. All needs met in room. Start Time: 13:00 Stop Time: 14:00 Total Billed Treatment Time: 60 Total Billed Treatment 1-GRP CHULA NGUYỄN Jan 30, 2020 14:41
[2020-01-30 16:00] VITALS: BP 135/82
[2020-01-30 17:43] VITALS: BP 131/81
[2020-01-30] MEDS: diphenhydrAMINE 25 MG TAB (BENADRYL) PO PRN (20:11)
[2020-01-30] MEDS: MELATONIN 3 MG TABLET PO PRN (20:11)
[2020-01-31] MEDS: CATHETER FLUSH 10 ML SYR IV SCH ×4 (05:12→20:40)
[2020-01-31 06:00] VITALS: BP 157/89
[2020-01-31] MEDS: KCL 10 MEQ TAB (MICRO K) PO SCH (06:22)
[2020-01-31 08:00] VITALS: BP 133/87
--- NOTE | 2020-01-31 08:38 | Occupational Ther Daily Note ---
OT Current Status-Daily Note Subjective Pt seen in recliner, eating breakfast. Pt completes with L UE, pt denies pain. Pt does express he expects more from rehab, stating he is 3 years post-stroke and has been told (prior to ARU) that his healing rate is 3-6 years. Pt and OT have long discussion of stroke symptoms, neuro pathways, and mm activation and activities that OT/ pt has been completing with shoulder mms to encourage strengthening. Pt reminded that he has compensated with LUE and was functioning with mod I-IND at home and that is where we are striving to get to. Pt denies discouragement, but states that his hip fx has "sent (him) back a year." Pt encouraged to participate and practice as though home environment, as we have been doing, to discover his true IND level currently. Pt again encouraged that he will continue to have OT/ PT HH and that he will continue working towards higher functional IND at home. Pt agrees to shower, as he states this is main issue for him. Mental Status/Objective Patient Orientation: Person, Place, Situation ADL-Treatment Therapy Code Descriptions/Definitions Functional [place] Measure: 0=Not Assessed/NA 4=Minimal Assistance 1=Total Assistance 5=Supervision or Setup 2=Maximal Assistance 6=Modified [place] 3=Moderate Assistance 7=Complete IndependenceSCALE: Activities may be completed with or without assistive devices. 1-Chjwabxynu-kcncnaz completes the activity by him/herself with no assistance from a helper. 5-Set-up or Clean-up Assistance-helper sets up or cleans up; patient completes activity. [place] assists only prior to or following the activity. 4-Supervision or Touching Assistance-helper provides verbal cues and/or touching/steadying and/or contact guard assistance as patient completes activity. Assistance may be provided throughout the activity or intermittently. 3-Partial/Moderate Assistance-helper does LESS THAN HALF the effort. [place] lifts, holds or supports trunk or limbs, but provides less than half the effort. 2-Substantial/Maximal Assistance-helper does MORE THAN HALF the effort. [place] lifts or holds trunk or limbs and provides more than half the effort. 1-Blwjrjjmi-zntmoz does ALL the effort. Patient does none of the effort to complete the activity. Or, the assistance of 2 or more helpers is required for the patient to complete the activity. If activity was not attempted, code reason: 7-Patient Refused. 9-Not Applicable-not attempted and the patient did not perform the activity before the current illness, exacerbation or injury. 10-Not Attempted due to Environmental Limitations-(lack of equipment, weather restraints, etc.). 88-Not Attempted due to Medical Conditions or Safety Concerns. Eating (QC): 6 Oral Hygiene (QC): 6 Bathing Location: R Arm, L Upper Leg, R Upper Leg, L Lower Leg (including foot) Shower/Bathe Self (QC): 3 (min A with LUE and SBA with bottom hygiene. Pt states assists with back, bottom, and L underarm. Pt completes with increased IND compared to home.) Upper Body Dressing (QC): 6 Lower Body Dressing (QC): 4 (SBA: pt completes all tasks with ply bander/ mod I) On/Off Footwear: 2 (IND L footPt completes R sock donning with mod A for donning (use of sock aide with min A), pt completes shoe donning with max A, edu of shoe horn but unable to complete due to decreased manipulation) Toileting Hygiene (QC): 4 (SBA) Toilet Transfer (QC): 4 (CGA for toilet/ shower transfer.) Other Treatment Pt completes showering/ dressing tasks with increased IND. Pt requires assist with R shoe/ sock donning- cues for precautions as pt use to bring R leg to L knee and begins to do this, requires reminders and pt corrects. Pt decreased mood post-sock/ shoe, stating "It shouldn't take 15 min each for my shoes and socks." Pt educated that we were both learning adaptive techniques together and first time takes a while and will get easier. Pt expresses he will wear slip on shoes and no socks at home upon questioning. Pt's can assist in socks and shoes when plan to leave house as pt does not leave house without . Pt left in recliner chair with nursing present, all needs met, call light in reach. Education OT Patient Education: Correct positioning, Modified ADL techniques, Purpose of tx/functional activities, Reviewed precautions, Safety issues, Use of adapted equipment Teaching Recipient: Patient Teaching Methods: Demonstration, Discussion Response to Teaching: Verbalize Understanding, Return Demonstration OT Short Term Goals Short Term Goals Time Frame: Jan 30, 2020 Oral hygiene: 6 Lower body dressin Putting on/taking off footwear: 3 OT Snf Goals Snf Goals Time Frame: Feb 06, 2020 Eating (QC): 6 (met) Oral Hygiene (QC): 6 (met) Toileting Hygiene (QC): 6 Shower/Bathe Self (QC): 6 Upper Body Dressing (QC): 6 Lower Body Dressing (QC): 6 On/Off Footwear (QC): 6 Additional Goals: 1-Demonstrate ADL Tasks, 2-Verbalize Understanding, 3-ImproveStrength/Delmy 1=Demonstrate adherence to instructed precautions during ADL tasks. 2=Patient will verbalize/demonstrate understanding of assistive devices/modifications for ADL. 3=Patient will improve strength/tolerance for activity to enable patient to perform ADL's. OT Education/Plan Problem List/Assessment Assessment: Decreased Activ Tolerance, Decreased UE Strength, Impaired Funct Balance, Impaired I ADL's, Impaired Self-Care Skills Discharge Recommendations Plan/Recommendations: Continue POC Therapy Discharge Recommendati: Intermittent Supervision, Home & Family, Post Acute OT Equpiment Recommendations-D/C: Hip Kit Treatment Plan/Plan of Care Treatment,Training & Education: Yes Patient would benefit from OT for education, treatment and training to promote independence in ADL's, mobility, safety and/or upper extremity function for ADL's. Plan of Care: ADL Retraining, Caregiver Training, Functional Mobility, Group Exercise/Act as Ind, Orthotic Fitting/Training, UE Funct Exercise/Act, UE Neuromus Re-Ed/Coord, W/C Management Training Treatment Duration: Feb 06, 2020 Frequency: At least 5 of 7 days/Wk (IRF) Estimated Hrs Per Day: 1.5 hours per day Agreement: Yes Rehab Potential: Fair Time/GCodes Start Time: 08:00 Stop Time: 09:15 Total Time Billed (hr/min): 75 Billed Treatment Time 1, ADL 5 (75) GIOVANNA ARMENTA OTR Jan 31, 2020 08:38
--- NOTE | 2020-01-31 09:01 | PM&R Progress Note ---
Subjective HPI/CC On Admission Date Seen by Provider: Jan 31, 2020 Time Seen by Provider: 09:00 Subjective/Events-last exam Pt doing very well Had a fall yesterday No injury on the fall No significant new issues Difficulty communicating at times and that is chronic form his stroke Bowels are moving Completed Toshia Canales for 6 days on Tuesday Reviewed therapy notes Checked meds and labs Conferred with pattern generator operator of Systems General: Fatigue Musculoskeletal: leg pain Neurological: Weakness, Incoordination Objective Exam Vital Signs Vital Signs Date Time Temp Pulse Resp B/P (MAP) Pulse Ox O2 Delivery O2 Flow Rate FiO2 02/01/20 09:21 96 Room Air 02/01/20 05:51 36.8 74 18 154/90 (111) Capillary Refill : Less Than 3 SecondsLess Than 3 Seconds General Appearance: No Apparent Distress, WD/WN, Chronically ill HEENT: PERRL/EOMI, Normal ENT Inspection, Pharynx Normal Neck: Full Range of Motion, Normal Inspection, Non Tender, Supple Respiratory: Chest Non Tender, No Accessory Muscle Use, No Respiratory Distress, Decreased Breath Sounds Cardiovascular: Regular Rate, Rhythm, Normal Peripheral Pulses, Other (Right leg edema, currently has SCDs on ) Gastrointestinal: Normal Bowel Sounds, No Organomegaly, No Pulsatile Mass, Non Tender, Soft Back: Normal Inspection, No CVA Tenderness, No Vertebral Tenderness Extremity: Normal Capillary Refill, No Calf Tenderness, Pedal Edema (Right shows minor swelling ) Neurologic/Psychiatric: Alert, Oriented x3, Normal Mood/Affect, Motor Weakness (right sided chronic) Skin: Normal Color, Warm/Dry Lymphatic: No Adenopathy Results/Procedures Lab Patient resulted labs reviewed. FIM Transfers Therapy Code Descriptions/Definitions Functional [place] Measure: 0=Not Assessed/NA 4=Minimal Assistance 1=Total Assistance 5=Supervision or Setup 2=Maximal Assistance 6=Modified [place] 3=Moderate Assistance 7=Complete IndependenceSCALE: Activities may be completed with or without assistive devices. 8-Yljgjfkcun-swzdfkx completes the activity by him/herself with no assistance from a helper. 5-Set-up or Clean-up Assistance-helper sets up or cleans up; patient completes activity. [place] assists only prior to or following the activity. 4-Supervision or Touching Assistance-helper provides verbal cues and/or touching/steadying and/or contact guard assistance as patient completes activity. Assistance may be provided throughout the activity or intermittently. 3-Partial/Moderate Assistance-helper does LESS THAN HALF the effort. [place] lifts, holds or supports trunk or limbs, but provides less than half the effort. 2-Substantial/Maximal Assistance-helper does MORE THAN HALF the effort. [place] lifts or holds trunk or limbs and provides more than half the effort. 4-Qhrrrqjpc-usqnbs does ALL the effort. Patient does none of the effort to complete the activity. Or, the assistance of 2 or more helpers is required for the patient to complete the activity. If activity was not attempted, code reason: 7-Patient Refused. 9-Not Applicable-not attempted and the patient did not perform the activity bef ore the current illness, exacerbation or injury. 10-Not Attempted due to Environmental Limitations-(lack of equipment, weather r estraints, etc.). 88-Not Attempted due to Medical Conditions or Safety Concerns. Roll Left to Right (QC): 3 Sit to Lying (QC): 3 Sit to Stand (QC): 4 Chair/Osz-zn-Esuhw Xfer(QC): 4 Car Transfer (QC): 3 Gait Training Does the Patient Walk?: Yes Distance: 100'x2 Walk 10 feet (QC): 4 Walk 50 ft with 2 Turns(QC): 4 Walk 150 ft (QC): 88 Walking 10ft/uneven surface-QC: 88 Gait Persons Needed: 1 Gait Assistive Device: Walker Haresh Wheelchair Training Does the Pt Use a Wheelchair?: Yes Distance: 150' Wheel 50 ft with 2 turns (QC): 5 Wheel 150 ft (QC): 4 Type of Wheelchair: Manual Stair Training 1 Step (curb) (QC): 88 4 Steps (QC): 88 12 Steps (QC): 88 Balance Picking up an Object (QC): 88 ADL-Treatment Eating (QC): 6 Oral Hygiene (QC): 6 Bathing Location: R Arm, L Upper Leg, R Upper Leg, L Lower Leg (including foot) Shower/Bathe Self (QC): 7 Upper Body Dressing (QC): 7 Lower Body Dressing (QC): 3 (Pt completes LB dressing with min A for RLE threading and maintenance of precautions. Pt then requires CGA during pulling over hips.) On/Off Footwear (QC): 7 Toileting Hygiene (QC): 4 (CGA) Toilet Transfer (QC): 4 (CGA from w/c to commode.) Assessment/Plan Assessment and Plan Assess & Plan/Chief Complaint Assessment: s/p right hip fracture FUO at [facility] completed abx IV h/o CVA with right sided weakness HTN DM HTN CRI Entercolitis Right hip incision redness hematoma assessed by general surgery Plan: IRF protocol Bladder and bowel management Manage incontinence Pain control Complete IV abx Tuesday Appreciate Dr Meneses's reassurance Knee brace to prevent hyperreflexia (1) Hip fracture (2) History of CVA with residual deficit (3) Right sided weakness (4) Hypertension (5) Diabetes (6) Hyperlipemia (7) Renal insufficiency (8) Anemia (9) Ileus (10) Colonic obstruction (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
--- NOTE | 2020-01-31 10:56 | Physical Therapy Daily Note ---
PT Daily Note-Current Subjective Patient in recliner pre tx, agrees to PT, has no complaints of pain. Appearance Patient in recliner post tx with nurse call, phone, tray, all needs met. Mental Status Patient Orientation: Person, Place, Situation Transfers SCALE: Activities may be completed with or without assistive devices. 2-Trprfxzrek-ogsfszy completes the activity by him/herself with no assistance from a helper. 5-Set-up or Clean-up Assistance-helper sets up or cleans up; patient completes activity. [place] assists only prior to or following the activity. 4-Supervision or Touching Assistance-helper provides verbal cues and/or evelia rachelle/steadying and/or contact guard assistance as patient completes activity. Assistance may be provided throughout the activity or intermittently. 3-Partial/Moderate Assistance-helper does LESS THAN HALF the effort. [place] lifts, holds or supports trunk or limbs, but provides less than half the effort. 2-Substantial/Maximal Assistance-helper does MORE THAN HALF the effort. [place] lifts or holds trunk or limbs and provides more than half the effort. 6-Zyleslhxs-nfukud does ALL the effort. Patient does none of the effort to complete the activity. Or, the assistance of 2 or more helpers is required for the patient to complete the activity. If activity was not attempted, code reason: 7-Patient Refused. 9-Not Applicable-not attempted and the patient did not perform the activity before the current illness, exacerbation or injury. 10-Not Attempted due to Environmental Limitations-(lack of equipment, weather restraints, etc.). 88-Not Attempted due to Medical Conditions or Safety Concerns. Sit to Stand (QC): 4 Chair/Mlt-zd-Lldrw Xfer(QC): 4 CGA Weight Bearing Right Lower Extremity: Right Weight Bearing/Tolerated Left Lower Extremity: Left Full Weight Bearing Gait Training Distance: 100'x4 Walk 10 feet (QC): 4 Walk 50 ft with 2 Turns(QC): 4 Gait Assistive Device: Walker Haresh CGA, slow, less step through on the left side, sometimes a step to gait pattern, uses right knee immobilizer to control knee hyperextension and buckling Wheelchair Training Does the Pt Use a Wheelchair?: Yes Wheel 50 ft with 2 turns (QC): 5 Wheel 150 ft (QC): 5 Type of Wheelchair: Manual 150'x2 Exercises NuStep Minutes: 15 NuStep Workload: 4 Treatments transfers, ambulation, WC mobility, functional strengthening Assessment Current Status: Fair Progress Improved ambulation. Patient's blister on his right foot started leaking, nurse notified and she put a bandage on it. PT Short Term Goals Short Term Goals Time Frame: Jan 30, 2020 Roll Left & Right: 6 Sit to lyin Lying to sitting on side of be: 4 Sit to stand: 4 Chair/ppc-cu-pbwke transfer: 4 Walk 10 feet: 4 PT Calender Operator Helper Goals Senior Living Goals PT Senior Living Goals Time Frame: Feb 13, 2020 Roll Left & Right (QC): 6 Sit to Lying (QC): 6 Lying-Sitting on Side/Bed(QC): 6 Sit to Stand (QC): 4 (SBA) Chair/Mbd-ju-Bjlcl Xfer(QC): 4 (SBA) Toilet Transfer (QC): 4 (SBA) Car Transfer (QC): 4 (SBA) Does the Patient Walk: Yes Walk 10 feet (QC): 4 Walk 50ft with 2 Turns (QC): 4 Walking 10ft on Uneven Surface: 4 1 Step (curb) (QC): 4 PT Plan Problem List Problem List: Activity Tolerance, Functional Strength, Safety, Balance, Gait, Transfer, Bed Mobility, ROM Treatment/Plan Treatment Plan: Continue Plan of Care Treatment Plan: Bed Mobility, Education, Functional Activity Delmy, Functional Strength, Group Therapy, Gait, Safety, Therapeutic Exercise, Transfers Treatment Duration: Feb 13, 2020 Frequency: At least 5 of 7 days/Wk (IRF) Estimated Hrs Per Day: 1.5 hours per day Patient and/or Family Agrees t: Yes Safety Risks/Education Patient Education: Gait Training, Transfer Techniques, Correct Positioning, W/C Management, Safety Issues Teaching Recipient: Patient Teaching Methods: Demonstration, Discussion Response to Teaching: Reinforcement Needed Time/GCodes Time In: 1000 Time Out: 1100 Total Billed Treatment Time: 60 Total Billed Treatment 1 visit EX 15' GT 30' FA 15' BROOKE WORLEY PT Jan 31, 2020 10:56
[2020-01-31] MEDS: MULTIVIT W/MINERALS TAB (THERAGRAN M) PO SCH (11:21)
[2020-01-31] MEDS: ENOXAPARIN 40 MG/0.4 ML (LOVENOX) SYR SC SCH (11:21)
[2020-01-31] MEDS: PANTOPRAZOLE 40 MG (PROTONIX) TAB PO SCH (11:21)
[2020-01-31] MEDS: meTOprolol TARTRATE 50 MG (LOPRESSOR) TAB PO SCH ×2 (11:22→20:33)
[2020-01-31] MEDS: glipiZIDE 5 MG (GLUCOTROL) TAB PO SCH (11:22)
[2020-01-31] MEDS: amLODIPine 5 MG (NORVASC) TAB PO SCH (11:22)
--- NOTE | 2020-01-31 11:24 | NUR ---
CM/SS REHAB TEAM CONFERENCE and DISCHARGE PLANNING Met with patient and spouse, Lauren Kulkarni, yesterday afternoon to review Summary from team conference. It was noted that patient participation had improved since the addition of a knee stabilizer, and target discharge was set for Tuesday, February 06, 2020. Patient and spouse in agreement for continued stay with goal for return home with [facility] RN/WOUND CARE/PT/OT. [facility]: Patient and spouse explored a specific therapist they had after patient's stroke, and then requested the current agency she is working for at this time. Referral will be with [employer] Jose Alfredo. Clinical Boiler Fireman came this a.m. to meet/greet chief underwriter and to visit with patient, contact information obtained. Continue to follow patient progress and coordinated post hospital care.
[2020-01-31] MEDS: BISACODYL 10 MG SUPP (DULCOLAX) RC SCH (11:27)
[2020-01-31] MEDS: SENNA W/DOCUSATE (SENOKOT S) TABLET PO SCH ×2 (11:27→19:40)
[2020-01-31] MEDS: DOCUSATE SODIUM 100 MG (COLACE) CAP PO SCH ×2 (11:27→19:40)
[2020-01-31] MEDS: polyethylene glycoL POWDER 17 GM (MIRALAX) PACK PO SCH ×2 (11:27→19:40)
--- NOTE | 2020-01-31 14:07 | Physical Therapy Daily Note ---
PT Daily Note-Current Subjective Patient in recliner pre tx, agrees to PT, has no complaints of pain. Patient has a smaller, better fitting knee immobilizer to use during ambulation. Appearance Patient in recliner post tx with nurse call, phone, tray, all needs met. Mental Status Patient Orientation: Normal For Age Transfers SCALE: Activities may be completed with or without assistive devices. 7-Lgsywkqbku-vxccuxq completes the activity by him/herself with no assistance from a helper. 5-Set-up or Clean-up Assistance-helper sets up or cleans up; patient completes activity. [place] assists only prior to or following the activity. 4-Supervision or Touching Assistance-helper provides verbal cues and/or touching/steadying and/or contact guard assistance as patient completes activity. Assistance may be provided throughout the activity or intermittently. 3-Partial/Moderate Assistance-helper does LESS THAN HALF the effort. [place] lifts, holds or supports trunk or limbs, but provides less than half the effort. 2-Substantial/Maximal Assistance-helper does MORE THAN HALF the effort. [place] lifts or holds trunk or limbs and provides more than half the effort. 0-Aekwnshdm-zygtru does ALL the effort. Patient does none of the effort to complete the activity. Or, the assistance of 2 or more helpers is required for the patient to complete the activity. If activity was not attempted, code reason: 7-Patient Refused. 9-Not Applicable-not attempted and the patient did not perform the activity before the current illness, exacerbation or injury. 10-Not Attempted due to Environmental Limitations-(lack of equipment, weather restraints, etc.). 88-Not Attempted due to Medical Conditions or Safety Concerns. Sit to Stand (QC): 4 Chair/Yxg-fu-Ismcp Xfer(QC): 4 Weight Bearing Right Lower Extremity: Right Weight Bearing/Tolerated Left Lower Extremity: Left Full Weight Bearing Gait Training Distance: 100'x2, 120' Walk 10 feet (QC): 4 Walk 50 ft with 2 Turns(QC): 4 Gait Assistive Device: Walker Haresh mostly step to ambulation but patient has no LOB Treatments ambulation Assessment Current Status: Fair Progress improving ambulation, right side knee immobilizer PT Short Term Goals Short Term Goals Time Frame: Jan 30, 2020 Roll Left & Right: 6 Sit to lyin Lying to sitting on side of be: 4 Sit to stand: 4 Chair/yua-qm-baswg transfer: 4 Walk 10 feet: 4 PT [facility] Director Goals Senior Living Goals PT Senior Living Goals Time Frame: Feb 13, 2020 Roll Left & Right (QC): 6 Sit to Lying (QC): 6 Lying-Sitting on Side/Bed(QC): 6 Sit to Stand (QC): 4 (SBA) Chair/Egu-ee-Fhenq Xfer(QC): 4 (SBA) Toilet Transfer (QC): 4 (SBA) Car Transfer (QC): 4 (SBA) Does the Patient Walk: Yes Walk 10 feet (QC): 4 Walk 50ft with 2 Turns (QC): 4 Walking 10ft on Uneven Surface: 4 1 Step (curb) (QC): 4 PT Plan Problem List Problem List: Activity Tolerance, Functional Strength, Safety, Balance, Gait, Transfer, Bed Mobility, ROM Treatment/Plan Treatment Plan: Continue Plan of Care Treatment Plan: Bed Mobility, Education, Functional Activity Delmy, Functional Strength, Group Therapy, Gait, Safety, Therapeutic Exercise, Transfers Treatment Duration: Feb 13, 2020 Frequency: At least 5 of 7 days/Wk (IRF) Estimated Hrs Per Day: 1.5 hours per day Patient and/or Family Agrees t: Yes Safety Risks/Education Patient Education: Gait Training, Transfer Techniques, Correct Positioning, Safety Issues Teaching Recipient: Patient Teaching Methods: Demonstration, Discussion Response to Teaching: Reinforcement Needed Time/GCodes Time In: 1300 Time Out: 1330 Total Billed Treatment Time: 30 Total Billed Treatment 1 visit GT 30' BROOKE OWRLEY PT Jan 31, 2020 14:07
--- NOTE | 2020-01-31 14:38 | Speech Therapy Daily Note ---
Speech Daily Progress Note Subjective Date Seen by Provider: Jan 31, 2020 Time Seen by Provider: 11:00 Patient was alert, upbeat, and cooperative for all therapy tasks. Patient reported that he is feeling good and trying his best each day to get better. Patient sat upright in his chair for the duration of treatment. Objective Patient completed word finding tasks pertaining to categorical members and divergent naming at 80% accuracy and minimal cues. Patient completed problem-solving tasks pertaining to word problems with 85% accuracy and minimal cues. Assessment Assessment Current Status: Good Progress Treatment Plan Continue Plan of Care Speech Short Term Goals Short Term Goals Short Term Goals 1. The patient will complete memory tasks at 90% accuracy with minimal cues. 2. The patient will complete problem-solving tasks at 90% accuracy with minimal cues. 3. The patient will complete safety awareness tasks at 90% accuracy with minimal cues. 4. The patient will complete word-finding tasks at 90% accuracy with minimal cues. Speech Prison Goals Prison Goals Patient will improve cognitive-communication necessary for safety and daily living tasks with minimal assist. Speech-Plan Patient/Family Goals Patient/Family Goals: Patient reported wanting to return to prior level of independence and mobility. Treatment Plan Speech Therapy Treatment Plan: Continue Plan of Care Treatment Duration: Feb 06, 2020 Frequency: 5 times per week Estimated Hrs Per Day: .5 hour per day Rehab Potential: Fair Barriers to Learning: Moderate cognitive deficits Pt/Family Agrees to Plan: Yes Safety Risks/Education Teaching Recipient: Patient Teaching Methods: Demonstration, Discussion Response to Teaching: Verbalize Understanding Education Topics Provided: Word-finding strategies to improve recall during conversation Time Speech Therapy Time In: 11:00 Speech Therapy Time Out: 11:45 Total Billed Time: 45 Billed Treatment Time DAHLIA Andrews [facility] [facility] Jan 31, 2020 14:38
--- NOTE | 2020-01-31 16:00 | NUR ---
Patient noted to be ambulating well with knee brace during therapy session. Senna and Miralax held this am per patient request d/t frequent soft stools.
[2020-01-31] MEDS: MICONAZOLE 2% POWDER (DESENEX AF) 90 GM TOP SCH ×2 (16:43→20:33)
[2020-01-31] MEDS: NYSTATIN CREAM (MYCOSTATIN) 30 GM TUBE TP SCH ×3 (16:43→20:33)
--- NOTE | 2020-01-31 16:59 | Progress Note - Surgery ---
JAMES LANZA [facility] 01/31/209: Subjective Date Seen by a Provider: Jan 31, 2020 Time Seen by a Provider: 15:50 Subjective/Events-last exam Patient is alert and oriented and in no acute distress. Sister is at the bedside. Denies pain in the right hip and states swelling is going down around the knee. Participating in PT and doing fine Eating and drinking without issue Urinating and having bowel movements without issue. No questions or concerns at this time. Denies the following: Chest pain, SOB, MSK pain, N/V, F/C Review of Systems General: No Chills HEENT: No Visual Changes, No Eye Pain Pulmonary: No Dyspnea, No Cough Cardiovascular: No: Chest Pain, Palpitations, Orthopnea Gastrointestinal: No: Nausea, Vomiting Musculoskeletal: No: leg pain (Denies right hip pain ) Objective Exam Vital Signs Date Time Temp Pulse Resp B/P (MAP) Pulse Ox O2 Delivery O2 Flow Rate FiO2 01/31/20 09:09 Room Air 01/31/20 09:00 Room Air 01/31/20 08:00 82 133/87 (102) 01/31/20 06:00 36.6 79 18 157/89 (111) 97 Room Air 01/30/20 21:00 Room Air 01/30/20 17:43 37.3 78 18 131/81 (98) 97 Room Air I & O 01/31/20 07:00 Intake Total 950 ml Output Total 1000 ml Balance -50 ml Capillary Refill : Less Than 3 SecondsLess Than 3 Seconds General Appearance: No Apparent Distress, WD/WN, Chronically ill HEENT: PERRL/EOMI, Normal ENT Inspection, Pharynx Normal Neck: Full Range of Motion, Normal Inspection, Non Tender, Supple Respiratory: Chest Non Tender, No Accessory Muscle Use, No Respiratory Distress, Decreased Breath Sounds Cardiovascular: Regular Rate, Rhythm, Normal Peripheral Pulses, Other (Right leg edema, currently has SCDs on ) Peripheral Pulses: 2+ Dorsalis Pedis (R), 2+ Left Dors-Pedis (L), 2+ Radial Pulses (R), 2+ Radial Pulses (L) Gastrointestinal: non tender, soft, no organomegaly Extremity: Normal Capillary Refill, No Calf Tenderness, Pedal Edema (Right shows minor swelling but is improving. ) Neurologic/Psychiatric: Alert, Oriented x3, Normal Mood/Affect, Motor Weakness (right sided chronic) Skin: Normal Color, Warm/Dry Lymphatic: No Adenopathy Results Lab Laboratory Tests 01/31/20 05:09: Glucometer 141H Assessment/Plan Assessment/Plan Assessment/Plan right femur fx s/p right partial hip replacement hematoma/bruising right thigh wound, Patients right side hip wound is becoming softer and the area of erythema has not progressed beyond the marking. The patient continues to denies pain and any concern at this time. Will continue to monitor recommended CBC with diff last known testing was on 01/28/2020. Less likely cellulitis and more hematoma and bruising is the suspected cause. Clinical Quality Measures DVT/VTE Risk/Contraindication: Risk Factor Score Per Nursin RFS Level Per Nursing on Admit: 4+=Very High HALLIE MENESES DO 02/01/20 1451: Subjective Subjective/Events-last exam Patient no new complaints. Right thigh same. Denies n/v fever sweats chills shortness of breath or chest pain. Objective Exam General Appearance: No Apparent Distress, WD/WN, Chronically ill HEENT: PERRL/EOMI, Normal ENT Inspection Neck: Full Range of Motion, Normal Inspection, Non Tender Respiratory: Chest Non Tender Cardiovascular: Regular Rate, Rhythm Gastrointestinal: non tender, soft, no organomegaly Extremity: Normal Capillary Refill Neurologic/Psychiatric: Alert, Oriented x3, Motor Weakness (right sided chronic) Skin: Normal Color, Warm/Dry, Other (right thigh as above.) Lymphatic: No Adenopathy Assessment/Plan Assessment/Plan Assessment/Plan right femur fx s/p right partial hip replacement hematoma/bruising right thigh wound, continue to monitor. Supervisory-Addendum Brief Verification & Attestation Participated in pt care: history, MDM, physical Personally performed: exam, history, MDM, supervision of care Care discussed with: Medical Student Procedures: n/a Results interpretation: Verified all documentation Verification and Attestation of Medical Student E/M Service A medical student performed and documented this service in my presence. I reviewed and verified all information documented by the medical student and made modifications to such information, when appropriate. I personally performed the physical exam and medical decision making. Hallie Meneses Jan 31, 2020,15:50 JAMES LANZA Jan 31, 2020 16:59 HALLIE MENESES DO Feb 01, 2020 14:51
[2020-01-31 18:00] VITALS: BP 129/84
[2020-02-01] MEDS: KCL 10 MEQ TAB (MICRO K) PO SCH (05:50)
[2020-02-01 05:51] VITALS: BP 154/90
--- NOTE | 2020-02-01 08:28 | Progress Note - Surgery ---
EMILY THIBODEAUX MEDICAL STUDENT 02/01/20 0807: Subjective Date Seen by a Provider: Feb 01, 2020 Time Seen by a Provider: 06:40 Subjective/Events-last exam Ash Kulkarni is a 64 y/o male Pt was alert and oriented when I came in the room. Pt is in NAD. Pt has no family at bedside. Pt states he is feeling well and is eating breakfast in bed. States he is in accordance with his eating and drinking recommendations. Pt states he is defecating well and had 5 bowel movements yesterday. Pt is able to ambulate with walker and assistance Pt has no questions and is fine recovering till discharge on 02/06/2020 Pt states he is doing well, no complaints of chest pain, SOB, n/v/d/, fever, chills Review of Systems General: No Chills, No Night Sweats HEENT: No Head Aches Pulmonary: No Cough Cardiovascular: No: Chest Pain Gastrointestinal: No: Nausea, Vomiting Genitourinary: No Hematuria Neurological: No: Weakness, Change in speech Focused Exam Skin: normal color, cyanosis Objective Exam Vital Signs Date Time Temp Pulse Resp B/P (MAP) Pulse Ox O2 Delivery O2 Flow Rate FiO2 02/01/20 05:51 36.8 74 18 154/90 (111) 95 Room Air 01/31/20 20:36 Room Air 01/31/20 19:33 Room Air 01/31/20 18:00 36.4 71 20 129/84 (99) 97 Room Air 01/31/20 09:09 Room Air 01/31/20 09:00 Room Air I & O 02/01/20 07:00 Intake Total 1210 ml Balance 1210 ml Capillary Refill : Less Than 3 SecondsLess Than 3 Seconds General Appearance: No Apparent Distress, WD/WN, Chronically ill HEENT: PERRL/EOMI, Normal ENT Inspection, Pharynx Normal Neck: Full Range of Motion, Normal Inspection, Non Tender, Supple Respiratory: Chest Non Tender, No Accessory Muscle Use, No Respiratory Distress, Decreased Breath Sounds Cardiovascular: Regular Rate, Rhythm, Normal Peripheral Pulses, Other (Right leg edema, currently has SCDs on ) Peripheral Pulses: 2+ Dorsalis Pedis (R), 2+ Left Dors-Pedis (L), 2+ Radial Pul ses (R), 2+ Radial Pulses (L) Gastrointestinal: non tender, soft, no organomegaly Extremity: Normal Capillary Refill, No Calf Tenderness, Pedal Edema (Right shows minor swelling but is improving. ) Neurologic/Psychiatric: Alert, Oriented x3, Normal Mood/Affect, Motor Weakness (right sided chronic) Skin: Normal Color, Warm/Dry Lymphatic: No Adenopathy Results Lab Laboratory Tests 02/01/20 05:52: Glucometer 159H Assessment/Plan Assessment/Plan Assessment/Plan right femur fx s/p right partial hip replacement hematoma/bruising right thigh wound, Patients right side hip wound is becoming softer and the area of erythema has not progressed beyond the marking. The patient continues to denies pain and any concern at this time. Will continue to monitor recommended CBC with diff last known testing was on 01/28/2020. Less likely cellulitis and more hematoma and bruising is the suspected cause. Clinical Quality Measures DVT/VTE Risk/Contraindication: Risk Factor Score Per Nursin RFS Level Per Nursing on Admit: 4+=Very High HALLIE MENESES DO 02/01/20 1500: Subjective Subjective/Events-last exam No complaints. Doing well with PT. Denies any changes to right thigh. Denies n/v fever sweats chills shortness of breath or chest pain. Objective Exam General Appearance: No Apparent Distress, Chronically ill HEENT: PERRL/EOMI, Normal ENT Inspection, Pharynx Normal Neck: Full Range of Motion, Non Tender Respiratory: Chest Non Tender, No Accessory Muscle Use, No Respiratory Distress Cardiovascular: Regular Rate, Rhythm Gastrointestinal: non tender, soft Extremity: Other (right thigh) Neurologic/Psychiatric: Alert, Oriented x3, Normal Mood/Affect, Motor Weakness (right sided chronic) Skin: Normal Color, Warm/Dry Lymphatic: No Adenopathy Assessment/Plan Assessment/Plan Assessment/Plan right femur fx s/p right partial hip replacement hematoma/bruising right thigh wound, patient doing well likely bruising, no surgical intervention, will sign off. Please call if needed. Supervisory-Addendum Brief Verification & Attestation Participated in pt care: history, MDM, physical Personally performed: exam, history, MDM, supervision of care Care discussed with: Medical Student Procedures: n/a Results interpretation: Verified all documentation Verification and Attestation of Medical Student E/M Service A medical student performed and documented this service in my presence. I reviewed and verified all information documented by the medical student and made modifications to such information, when appropriate. I personally performed the physical exam and medical decision making. Hallie Meneses, Feb 01, 2020,15:00 EMILY THIBODEAUX MEDICAL STUDENT Feb 01, 2020 08:07 HALLIE MENESES DO Feb 01, 2020 15:00
[2020-02-01] MEDS: ENOXAPARIN 40 MG/0.4 ML (LOVENOX) SYR SC SCH (09:29)
[2020-02-01] MEDS: amLODIPine 5 MG (NORVASC) TAB PO SCH (09:29)
[2020-02-01] MEDS: PANTOPRAZOLE 40 MG (PROTONIX) TAB PO SCH (09:29)
[2020-02-01] MEDS: meTOprolol TARTRATE 50 MG (LOPRESSOR) TAB PO SCH ×2 (09:30→20:30)
[2020-02-01] MEDS: MULTIVIT W/MINERALS TAB (THERAGRAN M) PO SCH (09:30)
[2020-02-01] MEDS: glipiZIDE 5 MG (GLUCOTROL) TAB PO SCH (09:30)
[2020-02-01] MEDS: SENNA W/DOCUSATE (SENOKOT S) TABLET PO SCH ×2 (09:31→19:37)
[2020-02-01] MEDS: polyethylene glycoL POWDER 17 GM (MIRALAX) PACK PO SCH ×2 (09:32→19:37)
[2020-02-01] MEDS: BISACODYL 10 MG SUPP (DULCOLAX) RC SCH (09:32)
[2020-02-01] MEDS: DOCUSATE SODIUM 100 MG (COLACE) CAP PO SCH ×2 (09:32→19:36)
[2020-02-01] MEDS: MICONAZOLE 2% POWDER (DESENEX AF) 90 GM TOP SCH ×2 (09:32→20:30)
[2020-02-01] MEDS: NYSTATIN CREAM (MYCOSTATIN) 30 GM TUBE TP SCH ×3 (09:33→20:30)
--- NOTE | 2020-02-01 09:50 | PM&R Progress Note ---
Subjective HPI/CC On Admission Date Seen by Provider: Feb 01, 2020 Time Seen by Provider: 10:00 Subjective/Events-last exam Patient participating well Knee brace really helps Strength is improving No pain is reported except for mild hip pain Bowels moving well Reviewed therapy notes Checked meds and labs Conferred with publicity person of Systems General: Fatigue Musculoskeletal: leg pain Objective Exam Vital Signs Vital Signs Date Time Temp Pulse Resp B/P (MAP) Pulse Ox O2 Delivery O2 Flow Rate FiO2 02/01/20 09:21 96 Room Air 02/01/20 05:51 36.8 74 18 154/90 (111) Capillary Refill : Less Than 3 SecondsLess Than 3 Seconds General Appearance: No Apparent Distress, WD/WN, Chronically ill HEENT: PERRL/EOMI, Normal ENT Inspection, Pharynx Normal Neck: Full Range of Motion, Normal Inspection, Non Tender, Supple Respiratory: Chest Non Tender, No Accessory Muscle Use, No Respiratory Distress, Decreased Breath Sounds Cardiovascular: Regular Rate, Rhythm, Normal Peripheral Pulses, Other (Right leg edema, currently has SCDs on ) Gastrointestinal: Normal Bowel Sounds, No Organomegaly, No Pulsatile Mass, Non Tender, Soft Back: Normal Inspection, No CVA Tenderness, No Vertebral Tenderness Extremity: Normal Capillary Refill, No Calf Tenderness, Pedal Edema (Right shows minor swelling but is improving. ) Neurologic/Psychiatric: Alert, Oriented x3, Normal Mood/Affect, Motor Weakness (right sided chronic) Skin: Normal Color, Warm/Dry Lymphatic: No Adenopathy Results/Procedures Lab Patient resulted labs reviewed. FIM Transfers Therapy Code Descriptions/Definitions Functional [place] Measure: 0=Not Assessed/NA 4=Minimal Assistance 1=Total Assistance 5=Supervision or Setup 2=Maximal Assistance 6=Modified [place] 3=Moderate Assistance 7=Complete IndependenceSCALE: Activities may be completed with or without assistive devices. 7-Wlbcoszjet-vphgvbl completes the activity by him/herself with no assistance from a helper. 5-Set-up or Clean-up Assistance-helper sets up or cleans up; patient completes activity. [place] assists only prior to or following the activity. 4-Supervision or Touching Assistance-helper provides verbal cues and/or touching/steadying and/or contact guard assistance as patient completes activity. Assistance may be provided throughout the activity or intermittently. 3-Partial/Moderate Assistance-helper does LESS THAN HALF the effort. [place] lifts, holds or supports trunk or limbs, but provides less than half the effort. 2-Substantial/Maximal Assistance-helper does MORE THAN HALF the effort. [place] lifts or holds trunk or limbs and provides more than half the effort. 4-Qcglnvwlq-vqafdn does ALL the effort. Patient does none of the effort to complete the activity. Or, the assistance of 2 or more helpers is required for the patient to complete the activity. If activity was not attempted, code reason: 7-Patient Refused. 9-Not Applicable-not attempted and the patient did not perform the activity before the current illness, exacerbation or injury. 10-Not Attempted due to Environmental Limitations-(lack of equipment, weather restraints, etc.). 88-Not Attempted due to Medical Conditions or Safety Concerns. Roll Left to Right (QC): 3 Sit to Lying (QC): 3 Sit to Stand (QC): 4 Chair/Rei-sv-Syqwa Xfer(QC): 4 Car Transfer (QC): 3 Gait Training Does the Patient Walk?: Yes Distance: 100'x2, 120' Walk 10 feet (QC): 4 Walk 50 ft with 2 Turns(QC): 4 Walk 150 ft (QC): 88 Walking 10ft/uneven surface-QC: 88 Gait Persons Needed: 1 Gait Assistive Device: Walker Haresh Wheelchair Training Does the Pt Use a Wheelchair?: Yes Distance: 150' Wheel 50 ft with 2 turns (QC): 5 Wheel 150 ft (QC): 5 Type of Wheelchair: Manual Stair Training 1 Step (curb) (QC): 88 4 Steps (QC): 88 12 Steps (QC): 88 Balance Picking up an Object (QC): 88 ADL-Treatment Eating (QC): 6 Oral Hygiene (QC): 6 Bathing Location: R Arm, L Upper Leg, R Upper Leg, L Lower Leg (including foot) Shower/Bathe Self (QC): 3 (min A with LUE and SBA with bottom hygiene. Pt states assists with back, bottom, and L underarm. Pt completes with increased IND compared to home.) Upper Body Dressing (QC): 6 Lower Body Dressing (QC): 4 (SBA: pt completes all tasks with supervisor pipe joints/ mod I) On/Off Footwear (QC): 2 (IND L footPt completes R sock donning with mod A for donning (use of sock aide with min A), pt completes shoe donning with max A, edu of shoe horn but unable to complete due to decreased manipulation) Toileting Hygiene (QC): 4 (SBA) Toilet Transfer (QC): 4 (CGA for toilet/ shower transfer.) Assessment/Plan Assessment and Plan Assess & Plan/Chief Complaint Assessment: s/p right hip fracture FUO at [facility] completing abx IV h/o CVA with right sided weakness HTN DM HTN CRI Entercolitis Right hip incision redness hematoma assessed by general surgery Plan: IRF protocol Bladder and bowel management Manage incontinence Pain control Complete IV abx yesterday Appreciate Dr Meneses's reassurance Knee brace to prevent hyperreflexia Improving by the day (1) Hip fracture (2) History of CVA with residual deficit (3) Right sided weakness (4) Hypertension (5) Diabetes (6) Hyperlipemia (7) Renal insufficiency (8) Anemia (9) Ileus (10) Colonic obstruction (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
--- NOTE | 2020-02-01 10:20 | Occupational Ther Daily Note ---
OT Current Status-Daily Note Subjective Pt seen in bed, agreeable to OT. Pt states 6 BMs since yesterday. Min pain noted in R hip. Mental Status/Objective Patient Orientation: Person, Place, Situation ADL-Treatment Therapy Code Descriptions/Definitions Functional [place] Measure: 0=Not Assessed/NA 4=Minimal Assistance 1=Total Assistance 5=Supervision or Setup 2=Maximal Assistance 6=Modified [place] 3=Moderate Assistance 7=Complete IndependenceSCALE: Activities may be completed with or without assistive devices. 2-Oeulcznqqz-kxidrji completes the activity by him/herself with no assistance from a helper. 5-Set-up or Clean-up Assistance-helper sets up or cleans up; patient completes activity. [place] assists only prior to or following the activity. 4-Supervision or Touching Assistance-helper provides verbal cues and/or to uching/steadying and/or contact guard assistance as patient completes activity. Assistance may be provided throughout the activity or intermittently. 3-Partial/Moderate Assistance-helper does LESS THAN HALF the effort. [place] lifts, holds or supports trunk or limbs, but provides less than half the effort. 2-Substantial/Maximal Assistance-helper does MORE THAN HALF the effort. [place] lifts or holds trunk or limbs and provides more than half the effort. 3-Cxnyzbgnd-cczeey does ALL the effort. Patient does none of the effort to complete the activity. Or, the assistance of 2 or more helpers is required for the patient to complete the activity. If activity was not attempted, code reason: 7-Patient Refused. 9-Not Applicable-not attempted and the patient did not perform the activity before the current illness, exacerbation or injury. 10-Not Attempted due to Environmental Limitations-(lack of equipment, weather restraints, etc.). 88-Not Attempted due to Medical Conditions or Safety Concerns. Eating (QC): 6 Oral Hygiene (QC): 7 Shower/Bathe Self (QC): 7 Upper Body Dressing (QC): 6 Lower Body Dressing (QC): 4 (SBA. use of open end spinning operator. Pt able to complete with increased time this date.) On/Off Footwear: 7 Toileting Hygiene (QC): 4 (SBA) Toilet Transfer (QC): 4 (SUP) Other Treatment Pt bed mob with increased time. Completes pant donning EOB- increased IND on this date. Pt completes ambulation/ toileting with SBA. Pt returns to recliner, DO student enters and wound care for heel. Pt educated on metal sock clementina during this time with instruction/ demonstration and recommendations for rope for pulling to maintain precautions. Pt agrees, stating it would be easier though can assist at home. Pt completes w/c mob with SUP, nursing notified of pt leaving floor. Pt completes environmental navigation to 1st floor/ outside with min instruction. Pt completes theraband ex with LUE outdoors. Pt completes 30 reps of: bicep curls, internal/ external rotation, shoulder flexion, shoulder scaption, and shoulder extensions. Pt states he requires more resistance on shoulder extensions, pt educated on good amount of feedback and to continue communicating his needs. Pt completes w/c mob to 2nd floor with SBA/ no i nstruction for directionality. Pt returns to room, completion of AAROM/ guided PROM for pt's RUE. Pt left in w/c next to call light, all needs met, PT post OT session. Education OT Patient Education: Correct positioning, Exercise program, Home exercise program, Modified ADL techniques, Purpose of tx/functional activities, Reviewed precautions, Safety issues Teaching Recipient: Patient Teaching Methods: Demonstration, Discussion Response to Teaching: Verbalize Understanding, Return Demonstration OT Short Term Goals Short Term Goals Time Frame: Jan 30, 2020 Oral hygiene: 6 Lower body dressin Putting on/taking off footwear: 3 OT Detention Goals Quality Assurance Nurse Goals Time Frame: Feb 06, 2020 Eating (QC): 6 (met) Oral Hygiene (QC): 6 (met) Toileting Hygiene (QC): 6 Shower/Bathe Self (QC): 6 Upper Body Dressing (QC): 6 Lower Body Dressing (QC): 6 On/Off Footwear (QC): 6 Additional Goals: 1-Demonstrate ADL Tasks, 2-Verbalize Understanding, 3- ImproveStrength/Delmy 1=Demonstrate adherence to instructed precautions during ADL tasks. 2=Patient will verbalize/demonstrate understanding of assistive de vices/modifications for ADL. 3=Patient will improve strength/tolerance for activity to enable patient to perform ADL's. OT Education/Plan Problem List/Assessment Assessment: Decreased Activ Tolerance, Decreased UE Strength, Dependent Transfers, Impaired Funct Balance, Impaired I ADL's, Impaired Self-Care Skills Discharge Recommendations Plan/Recommendations: Continue POC Therapy Discharge Recommendati: Intermittent Supervision, Home & Family, Post Acute OT Treatment Plan/Plan of Care Treatment,Training & Education: Yes Patient would benefit from OT for education, treatment and training to promote independence in ADL's, mobility, safety and/or upper extremity function for ADL's. Plan of Care: ADL Retraining, Caregiver Training, Functional Mobility, Group Exercise/Act as Ind, Orthotic Fitting/Training, UE Funct Exercise/Act, UE Neuromus Re-Ed/Coord, W/C Management Training Treatment Duration: Feb 06, 2020 Frequency: At least 5 of 7 days/Wk (IRF) Estimated Hrs Per Day: 1.5 hours per day Agreement: Yes Rehab Potential: Fair Time/GCodes Start Time: 08:00 Stop Time: 09:15 Total Time Billed (hr/min): 75 Billed Treatment Time 1, ADL 2, EX 3 (75) GIOVANNA ARMENTA OTR Feb 01, 2020 10:20
--- NOTE | 2020-02-01 10:47 | Physical Therapy Daily Note ---
PT Daily Note-Current Subjective Patient in WC in room pre tx, agrees to PT, has no complaints of pain. Appearance Patient in recliner post tx, has nurse call, phone, tray, all needs met. Mental Status Patient Orientation: Person, Place, Situation Transfers SCALE: Activities may be completed with or without assistive devices. 6-Bwnqgpnsrw-mcfnvuh completes the activity by him/herself with no assistance from a helper. 5-Set-up or Clean-up Assistance-helper sets up or cleans up; patient completes activity. [place] assists only prior to or following the activity. 4-Supervision or Touching Assistance-helper provides verbal cues and/or t ouching/steadying and/or contact guard assistance as patient completes activity. Assistance may be provided throughout the activity or intermittently. 3-Partial/Moderate Assistance-helper does LESS THAN HALF the effort. [place] lifts, holds or supports trunk or limbs, but provides less than half the effort. 2-Substantial/Maximal Assistance-helper does MORE THAN HALF the effort. [place] lifts or holds trunk or limbs and provides more than half the effort. 9-Bxoxikasz-ihuvqk does ALL the effort. Patient does none of the effort to complete the activity. Or, the assistance of 2 or more helpers is required for the patient to complete the activity. If activity was not attempted, code reason: 7-Patient Refused. 9-Not Applicable-not attempted and the patient did not perform the activity before the current illness, exacerbation or injury. 10-Not Attempted due to Environmental Limitations-(lack of equipment, weather restraints, etc.). 88-Not Attempted due to Medical Conditions or Safety Concerns. Roll Left & Right (QC): 6 Sit to Lying (QC): 3 Lying to Sitting/Side of Bed(Q: 3 Sit to Stand (QC): 4 Chair/Yno-is-Htqki Xfer(QC): 4 CGA transfer both sides Weight Bearing Right Lower Extremity: Right Weight Bearing/Tolerated Left Lower Extremity: Left Full Weight Bearing Gait Training Distance: 160'x3 Walk 10 feet (QC): 4 Walk 50 ft with 2 Turns(QC): 4 Walk 150 ft (QC): 4 Gait Persons Needed: 1 Gait Assistive Device: Walker Haresh SBA when ambulating in a straight line down the hallway, CGA when turning, uses right knee immobilizer, right foot drop, slow ambulation, decreased step through on left side Wheelchair Training Does the Pt Use a Wheelchair?: Yes Wheel 50 ft with 2 turns (QC): 5 Wheel 150 ft (QC): 5 Type of Wheelchair: Manual Exercises Standin way Ex=Flex, Abd, Ext (not ext), Marching, Mini squats Standing Reps: 20 (only used right LE except for mini-squats) NuStep Minutes: 15 NuStep Workload: 4 Treatments transfers, ambulation, functional strengthening Assessment Current Status: Fair Progress improving ambulation, patient very tired after tx, needs frequent rest breaks due to fatigue PT Short Term Goals Short Term Goals Time Frame: Jan 30, 2020 Roll Left & Right: 6 Sit to lyin Lying to sitting on side of be: 4 Sit to stand: 4 Chair/msa-ws-kanue transfer: 4 Walk 10 feet: 4 PT Buttonholer Goals Mcc Goals PT Buttonholer Goals Time Frame: Feb 13, 2020 Roll Left & Right (QC): 6 Sit to Lying (QC): 6 Lying-Sitting on Side/Bed(QC): 6 Sit to Stand (QC): 4 (SBA) Chair/Gkt-in-Hdyek Xfer(QC): 4 (SBA) Toilet Transfer (QC): 4 (SBA) Car Transfer (QC): 4 (SBA) Does the Patient Walk: Yes Walk 10 feet (QC): 4 Walk 50ft with 2 Turns (QC): 4 Walking 10ft on Uneven Surface: 4 1 Step (curb) (QC): 4 PT Plan Problem List Problem List: Activity Tolerance, Functional Strength, Safety, Balance, Gait, Transfer, Bed Mobility, ROM Treatment/Plan Treatment Plan: Continue Plan of Care Treatment Plan: Bed Mobility, Education, Functional Activity Delmy, Functional Strength, Group Therapy, Gait, Safety, Therapeutic Exercise, Transfers Treatment Duration: Feb 13, 2020 Frequency: At least 5 of 7 days/Wk (IRF) Estimated Hrs Per Day: 1.5 hours per day Patient and/or Family Agrees t: Yes Safety Risks/Education Patient Education: Gait Training, Transfer Techniques, Correct Positioning, W/C Management, Safety Issues Teaching Recipient: Patient Teaching Methods: Demonstration, Discussion Response to Teaching: Reinforcement Needed Time/GCodes Time In: 0930 Time Out: 1100 Total Billed Treatment Time: 90 Total Billed Treatment 1 visit EX 30' FA 15' GT 45' BROOKE WORLEY PT Feb 01, 2020 10:47
--- NOTE | 2020-02-01 13:00 | Speech Therapy Daily Note ---
Speech Daily Progress Note Subjective Date Seen by Provider: Feb 01, 2020 Time Seen by Provider: 11:00 Patient was alert, upbeat, and cooperative for all therapy tasks. Patient reported that he's feeling excited to be discharging home next week. Patient sat upright in his chair for the duration of treatment. Objective Patient completed memory tasks pertaining to short term and dedicated intermodal truck driver tasks with 90% accuracy. Patient completed word finding tasks pertaining to categorical members with 80% accuracy and moderate cues. Assessment Assessment Current Status: Good Progress Treatment Plan Continue Plan of Care Speech Short Term Goals Short Term Goals Short Term Goals 1. The patient will complete memory tasks at 90% accuracy with minimal cues. 2. The patient will complete problem-solving tasks at 90% accuracy with minimal cues. 3. The patient will complete safety awareness tasks at 90% accuracy with minimal cues. 4. The patient will complete word-finding tasks at 90% accuracy with minimal cues. Speech Retirement Goals Field Examiner Goals Patient will improve cognitive-communication necessary for safety and daily living tasks with minimal assist. Speech-Plan Patient/Family Goals Patient/Family Goals: Patient reported that he is excited to be return home next week to prior level of independence. Treatment Plan Speech Therapy Treatment Plan: Continue Plan of Care Treatment Duration: Feb 06, 2020 Frequency: 5 times per week Estimated Hrs Per Day: .5 hour per day Rehab Potential: Fair Barriers to Learning: Moderate cognitive deficits Pt/Family Agrees to Plan: Yes Safety Risks/Education Teaching Recipient: Patient Teaching Methods: Demonstration, Discussion Response to Teaching: Verbalize Understanding Education Topics Provided: Continued utilization of memory and word-finding strategies to improve recall of information Time Speech Therapy Time In: 11:00 Speech Therapy Time Out: 11:45 Total Billed Time: 45 Billed Treatment Time 1DAHLIA BETH[address] ST Feb 01, 2020 13:00
[2020-02-01] MEDS: CATHETER FLUSH 10 ML SYR IV SCH ×2 (16:09→20:32)
[2020-02-01 17:06] VITALS: BP 146/89
--- NOTE | 2020-02-01 18:30 | Wound Care Assessment ---
Wound Care Assessment Date Seen by Provider: Feb 01, 2020 Time Seen by Provider: 18:20 Chief Complaint Wound R heel. HPI The patient is a 64 year old male with a Stage 2 pressure ulcer of the R heel, present on admission to this facility, due to an ill-fitting AFO prosthesis for foot-drop due to remote stroke. He had recently had repair of R hip fracture, and in his recovery was using an old prosthesis, which he states had never fit well. The resulting R heel blister is intact, has some bloody fluid in it, is not infected, and should be allowed to desiccate spontaneously. Further use of the AFO or other device that makes contact with the foot in the area previously injured is not recommended. I would recommend that, if possible, physical therapy pursue a work-around, whereby he can walk safely without compromising the healing of his Stage 2 pressure ulcer of the R heel. 02/01/20 Interval Note: Minimal discomfort in R heel wound. Drainage noted on dressing due to spontaneous rupture. The blister is unroofed to avoid bacterial infection in exposed fluid. Smoking Status: Never a Smoker Alcohol Use: Denies Use Exam Vital Signs Date Time Temp Pulse Resp B/P (MAP) Pulse Ox O2 Delivery O2 Flow Rate FiO2 02/01/20 17:06 36.2 74 16 146/89 (108) 99 Room Air Capillary Refill : Less Than 3 SecondsLess Than 3 Seconds Results Laboratory Tests 02/01/20 05:52: Glucometer 159H Assessment/Plan/Dx 1. Stage 2 pressure ulcer, R heel, stable. 2. 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 3. Recent R hip fracture with repair, now pursuing rehabilitation. Plan: would recommend ambulation as is safe without orthosis compromising injured tissue of R heel. Nothing about this ulcer should prevent weight bearing on the R leg. LIU CANAS MD Feb 01, 2020 18:30
[2020-02-02 06:00] VITALS: BP 150/89
[2020-02-02] MEDS: KCL 10 MEQ TAB (MICRO K) PO SCH (06:01)
[2020-02-02] MEDS: CATHETER FLUSH 10 ML SYR IV SCH ×3 (06:01→20:44)
[2020-02-02 08:00] VITALS: BP 121/83
--- NOTE | 2020-02-02 08:00 | NUR ---
STATES FEELS YEAST INFECTION IS BETTER. STATES FRIENDS ARE BUILDING A WALKWAY TODAY AT HIS HOUSE AND HOPE TO FINISH IT TODAY.
[2020-02-02] MEDS: MULTIVIT W/MINERALS TAB (THERAGRAN M) PO SCH (08:23)
[2020-02-02] MEDS: PANTOPRAZOLE 40 MG (PROTONIX) TAB PO SCH (08:23)
[2020-02-02] MEDS: glipiZIDE 5 MG (GLUCOTROL) TAB PO SCH (08:24)
[2020-02-02] MEDS: meTOprolol TARTRATE 50 MG (LOPRESSOR) TAB PO SCH ×2 (08:24→20:39)
[2020-02-02] MEDS: amLODIPine 5 MG (NORVASC) TAB PO SCH (08:24)
[2020-02-02] MEDS: DOCUSATE SODIUM 100 MG (COLACE) CAP PO SCH ×2 (08:26→20:39)
[2020-02-02] MEDS: polyethylene glycoL POWDER 17 GM (MIRALAX) PACK PO SCH ×2 (08:26→20:39)
[2020-02-02] MEDS: ENOXAPARIN 40 MG/0.4 ML (LOVENOX) SYR SC SCH (08:28)
[2020-02-02] MEDS: BISACODYL 10 MG SUPP (DULCOLAX) RC SCH (08:29)
[2020-02-02] MEDS: SENNA W/DOCUSATE (SENOKOT S) TABLET PO SCH ×2 (08:29→20:39)
[2020-02-02] MEDS: NYSTATIN CREAM (MYCOSTATIN) 30 GM TUBE TP SCH ×3 (10:54→20:43)
[2020-02-02] MEDS: MICONAZOLE 2% POWDER (DESENEX AF) 90 GM TOP SCH ×2 (10:54→20:43)
--- NOTE | 2020-02-02 12:23 | PM&R Progress Note ---
Subjective HPI/CC On Admission Date Seen by Provider: Feb 02, 2020 Time Seen by Provider: 12:30 Subjective/Events-last exam Patient participating well Knee brace really helps Dr Crocker debrided the callous on his heel and it is now a lot larger than originally evaluated so healing process will be helped with the debridement DC planned for 02/06/20 Incision is stable Reviewed therapy notes Checked meds and labs Conferred with farm operator of Systems Musculoskeletal: leg pain Objective Exam Vital Signs Vital Signs Date Time Temp Pulse Resp B/P (MAP) Pulse Ox O2 Delivery O2 Flow Rate FiO2 02/02/20 17:09 36.7 71 20 127/83 (98) 99 Room Air Capillary Refill : Less Than 3 SecondsLess Than 3 Seconds General Appearance: No Apparent Distress, Chronically ill HEENT: PERRL/EOMI, Normal ENT Inspection, Pharynx Normal Neck: Full Range of Motion, Non Tender Respiratory: Chest Non Tender, No Accessory Muscle Use, No Respiratory Distress Cardiovascular: Regular Rate, Rhythm Gastrointestinal: Normal Bowel Sounds, No Organomegaly, No Pulsatile Mass, Non Tender, Soft Back: Normal Inspection, No CVA Tenderness, No Vertebral Tenderness Extremity: Other (right thigh) Neurologic/Psychiatric: Alert, Oriented x3, Normal Mood/Affect, Motor Weakness (right sided chronic) Skin: Normal Color, Warm/Dry Lymphatic: No Adenopathy Results/Procedures Lab Patient resulted labs reviewed. FIM Transfers Therapy Code Descriptions/Definitions Functional [place] Measure: 0=Not Assessed/NA 4=Minimal Assistance 1=Total Assistance 5=Supervision or Setup 2=Maximal Assistance 6=Modified [place] 3=Moderate Assistance 7=Complete IndependenceSCALE: Activities may be completed with or without assistive devices. 3-Iyxawocqni-whiywuc completes the activity by him/herself with no assistance from a helper. 5-Set-up or Clean-up Assistance-helper sets up or cleans up; patient completes activity. [place] assists only prior to or following the activity. 4-Supervision or Touching Assistance-helper provides verbal cues and/or touching/steadying and/or contact guard assistance as patient completes activity. Assistance may be provided throughout the activity or intermittently. 3-Partial/Moderate Assistance-helper does LESS THAN HALF the effort. [place] lifts, holds or supports trunk or limbs, but provides less than half the effort. 2-Substantial/Maximal Assistance-helper does MORE THAN HALF the effort. [place] lifts or holds trunk or limbs and provides more than half the effort. 0-Fmwlklehy-hfjmlp does ALL the effort. Patient does none of the effort to complete the activity. Or, the assistance of 2 or more helpers is required for the patient to complete the activity. If activity was not attempted, code reason: 7-Patient Refused. 9-Not Applicable-not attempted and the patient did not perform the activity before the current illness, exacerbation or injury. 10-Not Attempted due to Environmental Limitations-(lack of equipment, weather restraints, etc.). 88-Not Attempted due to Medical Conditions or Safety Concerns. Roll Left to Right (QC): 6 Sit to Lying (QC): 3 Sit to Stand (QC): 4 Chair/Tlv-cl-Uirrg Xfer(QC): 4 Car Transfer (QC): 3 Gait Training Does the Patient Walk?: Yes Distance: 160'x3 Walk 10 feet (QC): 4 Walk 50 ft with 2 Turns(QC): 4 Walk 150 ft (QC): 4 Walking 10ft/uneven surface-QC: 88 Gait Persons Needed: 1 Gait Assistive Device: Walker Haresh Wheelchair Training Does the Pt Use a Wheelchair?: Yes Distance: 150' Wheel 50 ft with 2 turns (QC): 5 Wheel 150 ft (QC): 5 Type of Wheelchair: Manual Stair Training 1 Step (curb) (QC): 88 4 Steps (QC): 88 12 Steps (QC): 88 Balance Picking up an Object (QC): 88 ADL-Treatment Eating (QC): 6 Oral Hygiene (QC): 7 Bathing Location: R Arm, L Upper Leg, R Upper Leg, L Lower Leg (including foot) Shower/Bathe Self (QC): 7 Upper Body Dressing (QC): 6 Lower Body Dressing (QC): 4 (SBA. use of agricultural crop farm manager. Pt able to complete with increased time this date.) On/Off Footwear (QC): 7 Toileting Hygiene (QC): 4 (SBA) Toilet Transfer (QC): 4 (SUP) Assessment/Plan Assessment and Plan Assess & Plan/Chief Complaint Assessment: s/p right hip fracture FUO at [facility] completing abx IV h/o CVA with right sided weakness HTN DM HTN CRI Entercolitis Right hip incision redness hematoma assessed by general surgery Right heel callous with ulcer managed by Dr Crocker Plan: IRF protocol Bladder and bowel management Manage incontinence Pain control Completed IV abx Appreciate Dr Meneses's reassurance Knee brace to prevent hyperreflexia Improving by the day (1) Hip fracture (2) History of CVA with residual deficit (3) Right sided weakness (4) Hypertension (5) Diabetes (6) Hyperlipemia (7) Renal insufficiency (8) Anemia (9) Ileus (10) Colonic obstruction (11) [place]'s syndrome (12) GI bleed (13) Edema (14) Enterocolitis (15) FUO (fever of unknown origin) MARTIN JIM DO Feb 02, 2020 12:23
--- NOTE | 2020-02-02 13:00 | NUR ---
SISTER VISITED AND TOOK PATIENT OUTSIDE IN WHEELCHAIR.
[2020-02-02 17:09] VITALS: BP 127/83
--- NOTE | 2020-02-02 22:55 | NUR ---
Ash is a 64 yo male who is currently inpatient on ARU post R RAMONA completed on 01/10 at [facility] by Dr. Cancino. Patient is A&O X4 and has denied all pain to this nurse. He does has a past medical history of a CVA right sides neglect. He has significant functional impairment to his right side which is baseline per his and patient. He currently has a blister present on his right heel that Dr. Crocker has been following. It was reported he debrided the heel at the bedside on 01/31 and currently has an Allevyn dressing in place, which was changed by day shift RN, no drainage currently noted to bandage. Patient did refused his PRAFO boot tonight but allows his heel to be floated with a pillow. This nurse will complete frequent checks to ensure it remains pressure free. Ash does have a urinal device his brought from home the he utilizes at night. This is present at bedside and this nurse will check frequently. No further issues noted. Patient currently in bed and resting. This nurse will continue to monitor patient throughout shift.
[2020-02-03] MEDS: KCL 10 MEQ TAB (MICRO K) PO SCH (05:54)
[2020-02-03] MEDS: CATHETER FLUSH 10 ML SYR IV SCH ×3 (05:55→21:02)
[2020-02-03 06:03] VITALS: BP 163/92
[2020-02-03] MEDS ORDERED: VITAMIN D2 1.25 MG (50,000 UNITS) CAP PO SCH (07:00)
[2020-02-03] MEDS: ENOXAPARIN 40 MG/0.4 ML (LOVENOX) SYR SC SCH (09:13)
[2020-02-03] MEDS: meTOprolol TARTRATE 50 MG (LOPRESSOR) TAB PO SCH ×2 (09:13→21:01)
[2020-02-03] MEDS: glipiZIDE 5 MG (GLUCOTROL) TAB PO SCH (09:13)
[2020-02-03] MEDS: DOCUSATE SODIUM 100 MG (COLACE) CAP PO SCH ×2 (09:13→21:01)
[2020-02-03] MEDS: amLODIPine 5 MG (NORVASC) TAB PO SCH (09:13)
[2020-02-03] MEDS: PANTOPRAZOLE 40 MG (PROTONIX) TAB PO SCH (09:13)
[2020-02-03] MEDS: MULTIVIT W/MINERALS TAB (THERAGRAN M) PO SCH (09:13)
[2020-02-03] MEDS: MICONAZOLE 2% POWDER (DESENEX AF) 90 GM TOP SCH ×2 (09:14→21:02)
[2020-02-03] MEDS: NYSTATIN CREAM (MYCOSTATIN) 30 GM TUBE TP SCH ×3 (09:17→21:02)
[2020-02-03] MEDS: polyethylene glycoL POWDER 17 GM (MIRALAX) PACK PO SCH ×2 (11:15→21:01)
[2020-02-03] MEDS: SENNA W/DOCUSATE (SENOKOT S) TABLET PO SCH ×2 (11:15→21:02)
[2020-02-03] MEDS: BISACODYL 10 MG SUPP (DULCOLAX) RC SCH (11:16)
--- NOTE | 2020-02-03 15:40 | PM&R Progress Note ---
Subjective HPI/CC On Admission Date Seen by Provider: Feb 03, 2020 Time Seen by Provider: 11:00 Subjective/Events-last exam Patient participating well Knee brace really helps and seems to prevent falls Dr Crocker will see him for the right heel DC planned for 02/06/20 Incision is stable only dark pink Reviewed therapy notes Checked meds and labs Conferred with nuclear logging engineer of Systems General: Fatigue Musculoskeletal: leg pain Neurological: Weakness, Numbness, Incoordination Objective Exam Vital Signs Vital Signs Date Time Temp Pulse Resp B/P (MAP) Pulse Ox O2 Delivery O2 Flow Rate FiO2 02/03/20 17:08 36.6 59 18 173/82 (112) 97 Room Air Capillary Refill : Less Than 3 SecondsLess Than 3 Seconds General Appearance: No Apparent Distress, WD/WN, Chronically ill HEENT: PERRL/EOMI, Normal ENT Inspection, Pharynx Normal Neck: Full Range of Motion, Non Tender Respiratory: Chest Non Tender, Lungs Clear, Normal Breath Sounds, No Accessory Muscle Use, No Respiratory Distress Cardiovascular: Regular Rate, Rhythm, No Edema, No Gallop, No JVD, No Murmur, Normal Peripheral Pulses Gastrointestinal: Normal Bowel Sounds, No Organomegaly, No Pulsatile Mass, Non Tender, Soft Back: Normal Inspection, No CVA Tenderness, No Vertebral Tenderness Extremity: Other (right thigh) Neurologic/Psychiatric: Alert, Oriented x3, Normal Mood/Affect, Motor Weakness (right sided chronic) Skin: Normal Color, Warm/Dry Lymphatic: No Adenopathy Results/Procedures Lab Patient resulted labs reviewed. FIM Transfers Therapy Code Descriptions/Definitions Functional [place] Measure: 0=Not Assessed/NA 4=Minimal Assistance 1=Total Assistance 5=Supervision or Setup 2=Maximal Assistance 6=Modified [place] 3=Moderate Assistance 7=Complete IndependenceSCALE: Activities may be completed with or without assistive devices. 7-Gllpotkrnc-jaktnvj completes the activity by him/herself with no assistance from a helper. 5-Set-up or Clean-up Assistance-helper sets up or cleans up; patient completes activity. [place] assists only prior to or following the activity. 4-Supervision or Touching Assistance-helper provides verbal cues and/or touching/steadying and/or contact guard assistance as patient completes activity. Assistance may be provided throughout the activity or intermittently. 3-Partial/Moderate Assistance-helper does LESS THAN HALF the effort. [place] lifts, holds or supports trunk or limbs, but provides less than half the effort. 2-Substantial/Maximal Assistance-helper does MORE THAN HALF the effort. [place] lifts or holds trunk or limbs and provides more than half the effort. 5-Qwvatpbkg-mzidds does ALL the effort. Patient does none of the effort to complete the activity. Or, the assistance of 2 or more helpers is required for the patient to complete the activity. If activity was not attempted, code reason: 7-Patient Refused. 9-Not Applicable-not attempted and the patient did not perform the activity before the current illness, exacerbation or injury. 10-Not Attempted due to Environmental Limitations-(lack of equipment, weather restraints, etc.). 88-Not Attempted due to Medical Conditions or Safety Concerns. Roll Left to Right (QC): 6 Sit to Lying (QC): 3 Sit to Stand (QC): 4 Chair/Iyr-tq-Czssj Xfer(QC): 4 Car Transfer (QC): 3 Gait Training Does the Patient Walk?: Yes Distance: 160'x3 Walk 10 feet (QC): 4 Walk 50 ft with 2 Turns(QC): 4 Walk 150 ft (QC): 4 Walking 10ft/uneven surface-QC: 88 Gait Persons Needed: 1 Gait Assistive Device: Walker Haresh Wheelchair Training Does the Pt Use a Wheelchair?: Yes Distance: 150' Wheel 50 ft with 2 turns (QC): 5 Wheel 150 ft (QC): 5 Type of Wheelchair: Manual Stair Training 1 Step (curb) (QC): 88 4 Steps (QC): 88 12 Steps (QC): 88 Balance Picking up an Object (QC): 88 ADL-Treatment Eating (QC): 6 Oral Hygiene (QC): 7 Bathing Location: R Arm, L Upper Leg, R Upper Leg, L Lower Leg (including foot) Shower/Bathe Self (QC): 7 Upper Body Dressing (QC): 6 Lower Body Dressing (QC): 4 (SBA. use of roughener. Pt able to complete with increased time this date.) On/Off Footwear (QC): 7 Toileting Hygiene (QC): 4 (SBA) Toilet Transfer (QC): 4 (SUP) Assessment/Plan Assessment and Plan Assess & Plan/Chief Complaint Assessment: s/p right hip fracture FUO at 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 HTN DM HTN CRI Entercolitis Right hip incision redness hematoma assessed by general surgery Right heel callous with ulcer managed by Dr Crocker Plan: IRF protocol Bladder and bowel management Manage incontinence Pain control Completed IV abx Appreciate Dr Meneses's reassurance Knee brace to prevent hyperreflexia Improving by the day DC 02/06/20 (1) Hip fracture (2) History of CVA with residual deficit (3) Right sided weakness (4) Hypertension (5) Diabetes (6) Hyperlipemia (7) Renal insufficiency (8) Anemia (9) Ileus (10) Colonic obstruction (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
[2020-02-03 17:08] VITALS: BP 173/82
[2020-02-04 06:00] VITALS: BP 160/88
[2020-02-04] MEDS: KCL 10 MEQ TAB (MICRO K) PO SCH (06:19)
[2020-02-04] MEDS: CATHETER FLUSH 10 ML SYR IV SCH ×3 (06:20→22:02)
[2020-02-04 07:20] LABS: BASOPHILS % (AUTO) 1 % (0-10); EOSINOPHILS # (AUTO) 0.2 10^3/uL (0.0-0.3); EOSINOPHILS % (AUTO) 4 % (0-10); HEMATOCRIT 35 % (40-54); HEMOGLOBIN 11.3 G/DL (13.3-17.7); LYMPHOCYTES # (AUTO) 1.3 X 10^3 (1.0-4.0); LYMPHOCYTES % (AUTO) 21 % (12-44); MEAN CORPUSCULAR HEMOGLOBIN 29 PG (25-34); MEAN CORPUSCULAR HGB CONC 32 G/DL (32-36); MEAN CORPUSCULAR VOLUME 91 FL (80-99); MEAN PLATELET VOLUME 8.9 FL (7.4-10.4); MONOCYTES # (AUTO) 0.6 X 10^3 (0.0-1.0); MONOCYTES % (AUTO) 10 % (0-12); NEUTROPHILS % (AUTO) 65 % (42-75); PLATELET COUNT 219 10^3/uL (130-400); RED CELL DISTRIBUTION WIDTH 14.5 % (10.0-14.5); WHITE BLOOD COUNT 6.2 10^3/uL (4.3-11.0)
[2020-02-04 07:44] LABS: ALBUMIN 3.7 GM/DL (3.2-4.5); BILIRUBIN,TOTAL 0.4 MG/DL (0.1-1.0); CREATININE SERUM 1.44 MG/DL (0.60-1.30); POTASSIUM 4.1 MMOL/L (3.6-5.0); TOTAL PROTEIN 6.8 GM/DL (6.4-8.2)
[2020-02-04] MEDS: PANTOPRAZOLE 40 MG (PROTONIX) TAB PO SCH (08:12)
[2020-02-04] MEDS: meTOprolol TARTRATE 50 MG (LOPRESSOR) TAB PO SCH ×2 (08:12→20:45)
[2020-02-04] MEDS: MULTIVIT W/MINERALS TAB (THERAGRAN M) PO SCH (08:12)
[2020-02-04] MEDS: ENOXAPARIN 40 MG/0.4 ML (LOVENOX) SYR SC SCH (08:12)
[2020-02-04] MEDS: amLODIPine 5 MG (NORVASC) TAB PO SCH (08:12)
[2020-02-04] MEDS: glipiZIDE 5 MG (GLUCOTROL) TAB PO SCH (08:13)
[2020-02-04] MEDS: SENNA W/DOCUSATE (SENOKOT S) TABLET PO SCH ×2 (08:13→21:00)
[2020-02-04] MEDS: polyethylene glycoL POWDER 17 GM (MIRALAX) PACK PO SCH ×2 (08:13→21:00)
[2020-02-04] MEDS: DOCUSATE SODIUM 100 MG (COLACE) CAP PO SCH ×2 (08:13→21:00)
[2020-02-04] MEDS: BISACODYL 10 MG SUPP (DULCOLAX) RC SCH (08:14)
[2020-02-04] MEDS: NYSTATIN CREAM (MYCOSTATIN) 30 GM TUBE TP SCH ×3 (08:14→20:45)
[2020-02-04] MEDS: MICONAZOLE 2% POWDER (DESENEX AF) 90 GM TOP SCH ×2 (08:14→20:46)
--- NOTE | 2020-02-04 10:25 | PM&R Progress Note ---
Subjective HPI/CC On Admission Date Seen by Provider: Feb 04, 2020 Time Seen by Provider: 08:45 Subjective/Events-last exam Creatinine 1.44 Had a large BM today Chronic renal insufficiency creatinine 1.4 DC is planned for Tuesday Reviewed therapy notes Checked meds and labs Conferred with rubber press tender of Systems General: Fatigue Musculoskeletal: leg pain Neurological: Incoordination Objective Exam Vital Signs Vital Signs Date Time Temp Pulse Resp B/P (MAP) Pulse Ox O2 Delivery O2 Flow Rate FiO2 02/04/20 17:29 36.0 79 16 133/87 (102) 98 Room Air Capillary Refill : Less Than 3 SecondsLess Than 3 Seconds General Appearance: No Apparent Distress, WD/WN, Chronically ill HEENT: PERRL/EOMI, Normal ENT Inspection, Pharynx Normal Neck: Full Range of Motion, Non Tender Respiratory: Chest Non Tender, Lungs Clear, Normal Breath Sounds, No Accessory Muscle Use, No Respiratory Distress Cardiovascular: Regular Rate, Rhythm, No Edema, No Gallop, No JVD, No Murmur, Normal Peripheral Pulses Gastrointestinal: Normal Bowel Sounds, No Organomegaly, No Pulsatile Mass, Non Tender, Soft Back: Normal Inspection, No CVA Tenderness, No Vertebral Tenderness Extremity: Other (right thigh) Neurologic/Psychiatric: Alert, Oriented x3, Normal Mood/Affect, Motor Weakness (right sided chronic) Skin: Normal Color, Warm/Dry Lymphatic: No Adenopathy Results/Procedures Lab Laboratory Tests 02/04/20 05:40 Patient resulted labs reviewed. FIM Transfers Therapy Code Descriptions/Definitions Functional [place] Measure: 0=Not Assessed/NA 4=Minimal Assistance 1=Total Assistance 5=Supervision or Setup 2=Maximal Assistance 6=Modified [place] 3=Moderate Assistance 7=Complete IndependenceSCALE: Activities may be completed with or without assistive devices. 8-Ierckzmzdn-iabrmid completes the activity by him/herself with no assistance from a helper. 5-Set-up or Clean-up Assistance-helper sets up or cleans up; patient completes activity. [place] assists only prior to or following the activity. 4-Supervision or Touching Assistance-helper provides verbal cues and/or evelia rachelle/steadying and/or contact guard assistance as patient completes activity. Assistance may be provided throughout the activity or intermittently. 3-Partial/Moderate Assistance-helper does LESS THAN HALF the effort. [place] lifts, holds or supports trunk or limbs, but provides less than half the effort. 2-Substantial/Maximal Assistance-helper does MORE THAN HALF the effort. [place] lifts or holds trunk or limbs and provides more than half the effort. 0-Siwjvpwnj-kuxlbb does ALL the effort. Patient does none of the effort to complete the activity. Or, the assistance of 2 or more helpers is required for the patient to complete the activity. If activity was not attempted, code reason: 7-Patient Refused. 9-Not Applicable-not attempted and the patient did not perform the activity b efore the current illness, exacerbation or injury. 10-Not Attempted due to Environmental Limitations-(lack of equipment, weather restraints, etc.). 88-Not Attempted due to Medical Conditions or Safety Concerns. Roll Left to Right (QC): 6 Sit to Lying (QC): 3 Sit to Stand (QC): 4 Chair/Rag-li-Zuirl Xfer(QC): 4 Car Transfer (QC): 3 Gait Training Does the Patient Walk?: Yes Distance: 160'x3 Walk 10 feet (QC): 4 Walk 50 ft with 2 Turns(QC): 4 Walk 150 ft (QC): 4 Walking 10ft/uneven surface-QC: 88 Gait Persons Needed: 1 Gait Assistive Device: Walker Haresh Wheelchair Training Does the Pt Use a Wheelchair?: Yes Distance: 150' Wheel 50 ft with 2 turns (QC): 5 Wheel 150 ft (QC): 5 Type of Wheelchair: Manual Stair Training 1 Step (curb) (QC): 88 4 Steps (QC): 88 12 Steps (QC): 88 Balance Picking up an Object (QC): 88 ADL-Treatment Eating (QC): 6 Oral Hygiene (QC): 7 Bathing Location: R Arm, L Upper Leg, R Upper Leg, L Lower Leg (including foot) Shower/Bathe Self (QC): 7 Upper Body Dressing (QC): 6 Lower Body Dressing (QC): 4 (SBA. use of animal pathology teacher. 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 HTN DM HTN CRI Entercolitis Right hip incision redness hematoma assessed by general surgery Right heel callous with ulcer managed by Dr Crocker Plan: IRF protocol Bladder and bowel management Manage incontinence Pain control Completed IV abx Appreciate Dr Meneses's reassurance Knee brace to prevent hyperreflexia Improving by the day DC 02/06/20 (1) Hip fracture (2) History of CVA with residual deficit (3) Right sided weakness (4) Hypertension (5) Diabetes (6) Hyperlipemia (7) Renal insufficiency (8) Anemia (9) Ileus (10) Colonic obstruction (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
--- NOTE | 2020-02-04 11:02 | Physical Therapy Daily Note ---
PT Daily Note-Current Subjective Patient in recliner pre tx, agrees to PT, has no complaints of pain. Appearance Patient in recliner post tx with nurse call, phone, tray, speech therapy in room. Mental Status Patient Orientation: Person, Place, Situation Transfers SCALE: Activities may be completed with or without assistive devices. 5-Krjuqttedb-oyxeydr completes the activity by him/herself with no assistance from a helper. 5-Set-up or Clean-up Assistance-helper sets up or cleans up; patient completes activity. [place] assists only prior to or following the activity. 4-Supervision or Touching Assistance-helper provides verbal cues and/or touching/steadying and/or contact guard assistance as patient completes activity. Assistance may be provided throughout the activity or intermittently. 3-Partial/Moderate Assistance-helper does LESS THAN HALF the effort. [place] lifts, holds or supports trunk or limbs, but provides less than half the effort. 2-Substantial/Maximal Assistance-helper does MORE THAN HALF the effort. [place] lifts or holds trunk or limbs and provides more than half the effort. 8-Aybudmybi-iounbf does ALL the effort. Patient does none of the effort to complete the activity. Or, the assistance of 2 or more helpers is required for the patient to complete the activity. If activity was not attempted, code reason: 7-Patient Refused. 9-Not Applicable-not attempted and the patient did not perform the activity before the current illness, exacerbation or injury. 10-Not Attempted due to Environmental Limitations-(lack of equipment, weather restraints, etc.). 88-Not Attempted due to Medical Conditions or Safety Concerns. Roll Left & Right (QC): 6 Sit to Lying (QC): 3 Lying to Sitting/Side of Bed(Q: 3 Sit to Stand (QC): 4 Chair/Buw-ib-Xcqjt Xfer(QC): 4 Min assist for sit to supine, mod assist for supine to sit. Weight Bearing Right Lower Extremity: Right Weight Bearing/Tolerated Left Lower Extremity: Left Full Weight Bearing Gait Training Distance: 200'x2 Walk 10 feet (QC): 4 Walk 50 ft with 2 Turns(QC): 4 Walk 150 ft (QC): 4 Gait Persons Needed: 1 Gait Assistive Device: Walker Haresh Slow, right foot drop, uses a right knee immobilizer to control knee hyperextension and buckling, mostly a step-to gait with right leg leading. Wheelchair Training Does the Pt Use a Wheelchair?: Yes Wheel 50 ft with 2 turns (QC): 4 Wheel 150 ft (QC): 4 Type of Wheelchair: Manual Exercises NuStep Minutes: 15 NuStep Workload: 4 Treatments bed mobility and transfers, ambulation, functional strengthening Assessment Current Status: Fair Progress improving ambulation and endurance PT Short Term Goals Short Term Goals Time Frame: Jan 30, 2020 Roll Left & Right: 6 Sit to lyin Lying to sitting on side of be: 4 Sit to stand: 4 Chair/nap-tc-kmqxl transfer: 4 Walk 10 feet: 4 PT Tree Deadener Goals Tree Deadener Goals PT Skilled Nursing Goals Time Frame: Feb 13, 2020 Roll Left & Right (QC): 6 Sit to Lying (QC): 6 Lying-Sitting on Side/Bed(QC): 6 Sit to Stand (QC): 4 (SBA) Chair/Opx-sy-Ewkhw Xfer(QC): 4 (SBA) Toilet Transfer (QC): 4 (SBA) Car Transfer (QC): 4 (SBA) Does the Patient Walk: Yes Walk 10 feet (QC): 4 Walk 50ft with 2 Turns (QC): 4 Walking 10ft on Uneven Surface: 4 1 Step (curb) (QC): 4 PT Plan Problem List Problem List: Activity Tolerance, Functional Strength, Safety, Balance, Gait, Transfer, Bed Mobility, ROM Treatment/Plan Treatment Plan: Continue Plan of Care Treatment Plan: Bed Mobility, Education, Functional Activity Delmy, Functional Strength, Group Therapy, Gait, Safety, Therapeutic Exercise, Transfers Treatment Duration: Feb 13, 2020 Frequency: At least 5 of 7 days/Wk (IRF) Estimated Hrs Per Day: 1.5 hours per day Patient and/or Family Agrees t: Yes Safety Risks/Education Patient Education: Gait Training, Transfer Techniques, Correct Positioning, W/C Management, Safety Issues Teaching Recipient: Patient Teaching Methods: Demonstration, Discussion Response to Teaching: Reinforcement Needed Time/GCodes Time In: 1000 Time Out: 1100 Total Billed Treatment Time: 60 Total Billed Treatment 1 visit EX 15' FA 15' GT 30' BROOKE WORLEY PT Feb 04, 2020 11:02
--- NOTE | 2020-02-04 11:35 | Occupational Ther Daily Note ---
OT Current Status-Daily Note Subjective Pt seen supine in bed, utilizing urinal. Pt denies pain, states slept well and had busy weekend though was not very active. Mental Status/Objective Patient Orientation: Person, Place, Time, Situation ADL-Treatment Therapy Code Descriptions/Definitions Functional [place] Measure: 0=Not Assessed/NA 4=Minimal Assistance 1=Total Assistance 5=Supervision or Setup 2=Maximal Assistance 6=Modified [place] 3=Moderate Assistance 7=Complete IndependenceSCALE: Activities may be completed with or without assistive devices. 2-Ckqbehgkjx-stxqbpi completes the activity by him/herself with no assistance from a helper. 5-Set-up or Clean-up Assistance-helper sets up or cleans up; patient completes activity. [place] assists only prior to or following the activity. 4-Supervision or Touching Assistance-helper provides verbal cues and/or touching/steadying and/or contact guard assistance as patient completes activity. Assistance may be provided throughout the activity or intermittently. 3-Partial/Moderate Assistance-helper does LESS THAN HALF the effort. [place] lifts, holds or supports trunk or limbs, but provides less than half the effort. 2-Substantial/Maximal Assistance-helper does MORE THAN HALF the effort. [place] lifts or holds trunk or limbs and provides more than half the effort. 6-Fmtalalrm-xwcshz does ALL the effort. Patient does none of the effort to complete the activity. Or, the assistance of 2 or more helpers is required for the patient to complete the activity. If activity was not attempted, code reason: 7-Patient Refused. 9-Not Applicable-not attempted and the patient did not perform the activity before the current illness, exacerbation or injury. 10-Not Attempted due to Environmental Limitations-(lack of equipment, weather restraints, etc.). 88-Not Attempted due to Medical Conditions or Safety Concerns. Eating (QC): 6 Oral Hygiene (QC): 4 (SBA in stance at sink.) Bathing Location: L Arm, R Arm, R Upper Leg, L Lower Leg (including foot), R Lower Leg (including foot), Chest, Abdomen, Buttocks, Perineal Area Shower/Bathe Self (QC): 4 (Intermittent assist (L arm), CGA in stance for bottom hygiene. Utilized LHS for BLE) Upper Body Dressing (QC): 6 (IND in w/c.) Lower Body Dressing (QC): 4 (SBA in stance. Cues for use of foreign car mechanic, pt continues to attempt to thread RLE into pant leg, requires cues for redirection/ problem solving.) On/Off Footwear: 2 (Pt completes LLE, pt max A with RLE- pt's to complete at home. ) Toileting Hygiene (QC): 4 (CGA in stance without use of grab bar for LUE movement.) Toilet Transfer (QC): 4 (SBA, use of annie walker.) Other Treatment Pt agrees to showering/ ADLs in room. Pt completes in bathroom, requires cues for importance and need of precautions as pt states he will not have to utilize foreign car mechanic at home. After education, pt expresses understanding. Pt completes sit to stands with SBA, completes oral/ hair hygiene in stance at sink, walks to recliner chair. Pt educated on stretching/ AAROM/ PROM techniques of RUE to complete at home. Pt expresses desire for continued HEP for home use, plans to complete tomorrow. PROM to RUE completed to full range with skilled muscular relaxation techniques for increased stretch. Pt left in recliner with all needs met, call light in reach. Education OT Patient Education: Correct positioning, Exercise program, Home exercise pr ogram, Modified ADL techniques, Purpose of tx/functional activities, Reviewed precautions, Use of adapted equipment Teaching Recipient: Patient Teaching Methods: Demonstration, Discussion Response to Teaching: Verbalize Understanding, Return Demonstration, Reinforcement Needed OT Short Term Goals Short Term Goals Time Frame: Jan 30, 2020 Oral hygiene: 6 (met) Lower body dressin (met) Putting on/taking off footwear: 3 OT Component Prep Operator Goals Component Prep Operator Goals Time Frame: Feb 06, 2020 Eating (QC): 6 (met) Oral Hygiene (QC): 6 (met) Toileting Hygiene (QC): 6 Shower/Bathe Self (QC): 6 Upper Body Dressing (QC): 6 (met) Lower Body Dressing (QC): 6 On/Off Footwear (QC): 6 Additional Goals: 1-Demonstrate ADL Tasks, 2-Verbalize Understanding, 3-ImproveStrength/Delmy 1=Demonstrate adherence to instructed precautions during ADL tasks. 2=Patient will verbalize/demonstrate understanding of assistive devices/modifications for ADL. 3=Patient will improve strength/tolerance for activity to enable patient to perform ADL's. OT Education/Plan Problem List/Assessment Assessment: Decreased Activ Tolerance, Decreased UE Strength, Dependent Transfers, Impaired Funct Balance, Impaired I ADL's, Impaired Self-Care Skills Discharge Recommendations Plan/Recommendations: Continue POC Therapy Discharge Recommendati: Intermittent Supervision, Home & Family, Post Acute OT Equpiment Recommendations-D/C: Hip Kit Treatment Plan/Plan of Care Treatment,Training & Education: Yes Patient would benefit from OT for education, treatment and training to promote independence in ADL's, mobility, safety and/or upper extremity function for A DL's. Plan of Care: ADL Retraining, Caregiver Training, Functional Mobility, Group Exercise/Act as Ind, Orthotic Fitting/Training, UE Funct Exercise/Act, UE Neuromus Re-Ed/Coord, W/C Management Training Treatment Duration: Feb 06, 2020 Frequency: At least 5 of 7 days/Wk (IRF) Estimated Hrs Per Day: 1.5 hours per day Agreement: Yes Rehab Potential: Fair Time/GCodes Start Time: 08:30 Stop Time: 09:45 Total Time Billed (hr/min): 75 Billed Treatment Time 1, ADL 4 (60), EX (15)= 75 GIOVANNA ARMENTA OTR Feb 04, 2020 11:35
--- NOTE | 2020-02-04 11:37 | Speech Therapy Daily Note ---
Speech Daily Progress Note Subjective Date Seen by Provider: Feb 04, 2020 Time Seen by Provider: 00:30 Patient reports he is a little apprehensive about his return home, feeling as though 2 weeks hasn't been long enough. Objective Patient completed a re-eval with the SLUMS with a score of 21/30 obtained. Assessment Assessment Current Status: Fair Progress Treatment Plan Discontinue ST Speech Short Term Goals Short Term Goals Short Term Goals 1. The patient will complete memory tasks at 90% accuracy with minimal cues. 2. The patient will complete problem-solving tasks at 90% accuracy with minimal cues. 3. The patient will complete safety awareness tasks at 90% accuracy with minimal cues. 4. The patient will complete word-finding tasks at 90% accuracy with minimal cues. Speech Fdc Goals Photostat Operator Helper Goals Patient will improve cognitive-communication necessary for safety and daily living tasks with minimal assist. Speech-Plan Patient/Family Goals Patient/Family Goals: Patient will be returning to his home where he lives with his upon discharge. Treatment Plan Speech Therapy Treatment Plan: Discontinue ST Treatment Duration: Feb 06, 2020 Frequency: 5 times per week Estimated Hrs Per Day: .5 hour per day Rehab Potential: Fair Barriers to Learning: Patient continues to exhibit cognitive deficits. Pt/Family Agrees to Plan: Yes Safety Risks/Education Teaching Recipient: Patient Teaching Methods: Discussion Response to Teaching: Verbalize Understanding Education Topics Provided: Continued safety at the home and communication of wants/needs Time Speech Therapy Time In: 10:45 Speech Therapy Time Out: 11:15 Total Billed Time: 30 Billed Treatment Time 1, SLTS No QUALITY CODES: EXPRESSION OF IDEAS/WANTS: 4 UNDERSTANDING VERBAL CONTENT: 3 BRIEF INTERVIEW MENTAL STATUS: YES REPETITION OF 3 WORDS: 3 TEMPORAL ORIENTATION: YEAR: YES, MONTH: YES:, DAY: YES RECALL SOCK: YES, COLOR: YES WITH CUE, BED: YES WITH CUE MEMORY/RECALL ABILITY: SEASON, THAT HE'S IN THE HOSPITAL, LOCATION OF ROOM ; OSVALDO FIELDS Feb 04, 2020 11:37
--- NOTE | 2020-02-04 13:35 | NUR ---
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 He expressed belief that there is a God, however did not share a caodaism affiliation. He said it felt good to talk and that he shared experiences he has not talked about in many years, and some he has never shared.
--- NOTE | 2020-02-04 15:30 | Physical Therapy Daily Note ---
PT Daily Note-Current Subjective Pt agrees to PT. No complaints. Pt reports he is going home Tuesday. Pain Numeric Pain Scale: 0-No Pain Location: No Pain Reported Mental Status Patient Orientation: Person, Place, Time, Situation Transfers SCALE: Activities may be completed with or without assistive devices. 3-Lefusvnwdz-fueyejm completes the activity by him/herself with no assistance from a helper. 5-Set-up or Clean-up Assistance-helper sets up or cleans up; patient completes activity. [place] assists only prior to or following the activity. 4-Supervision or Touching Assistance-helper provides verbal cues and/or touching/steadying and/or contact guard assistance as patient completes activity. Assistance may be provided throughout the activity or intermittently. 3-Partial/Moderate Assistance-helper does LESS THAN HALF the effort. [place] lifts, holds or supports trunk or limbs, but provides less than half the effort. 2-Substantial/Maximal Assistance-helper does MORE THAN HALF the effort. [place] lifts or holds trunk or limbs and provides more than half the effort. 7-Etpcjvjlw-vavwwn does ALL the effort. Patient does none of the effort to complete the activity. Or, the assistance of 2 or more helpers is required for the patient to complete the activity. If activity was not attempted, code reason: 7-Patient Refused. 9-Not Applicable-not attempted and the patient did not perform the activity before the current illness, exacerbation or injury. 10-Not Attempted due to Environmental Limitations-(lack of equipment, weather restraints, etc.). 88-Not Attempted due to Medical Conditions or Safety Concerns. Sit to Stand (QC): 4 (CGA for safety with occas cues for sequencing and hand placement) CGA with functional trasnfers for safety and sequencing. Weight Bearing Right Lower Extremity: Right Weight Bearing/Tolerated Left Lower Extremity: Left Full Weight Bearing Gait Training Does the Patient Walk?: Yes Gait Assistive Device: FWW Pt ambulated with knee immobizer right LE; Pt walked 4 bouts of 150 ft with hemiwalker with CGA with obstacles and turns to challenge balance and sequ encing/safety. Treatments Pt in chair post treatment with needs met. Assessment Current Status: Good Progress Pt making functional gains and did will with challenging gait obstacles. PT Short Term Goals Short Term Goals Time Frame: Jan 30, 2020 Roll Left & Right: 6 Sit to lyin Lying to sitting on side of be: 4 Sit to stand: 4 Chair/ume-oa-zfunq transfer: 4 Walk 10 feet: 4 PT Auto Body Repair Technician Goals Auto Body Repair Technician Goals PT Correction Goals Time Frame: Feb 13, 2020 Roll Left & Right (QC): 6 Sit to Lying (QC): 6 Lying-Sitting on Side/Bed(QC): 6 Sit to Stand (QC): 4 (SBA) Chair/Vfg-ub-Twrko Xfer(QC): 4 (SBA) Toilet Transfer (QC): 4 (SBA) Car Transfer (QC): 4 (SBA) Does the Patient Walk: Yes Walk 10 feet (QC): 4 Walk 50ft with 2 Turns (QC): 4 Walking 10ft on Uneven Surface: 4 1 Step (curb) (QC): 4 PT Plan Problem List Problem List: Activity Tolerance, Functional Strength, Safety, Balance, Gait, Transfer Treatment/Plan Treatment Plan: Continue Plan of Care Treatment Plan: Bed Mobility, Education, Functional Activity Delmy, Functional Strength, Group Therapy, Gait, Safety, Therapeutic Exercise, Transfers Treatment Duration: Feb 13, 2020 Frequency: At least 5 of 7 days/Wk (IRF) Estimated Hrs Per Day: 1.5 hours per day Patient and/or Family Agrees t: Yes Safety Risks/Education Patient Education: Gait Training, Transfer Techniques Teaching Recipient: Patient Teaching Methods: Discussion Response to Teaching: Return Demonstration Time/GCodes Time In: 1300 Time Out: 1330 Total Billed Treatment Time: 30 Total Billed Treatment visit GT 30 CHULA MULLEN PT Feb 04, 2020 15:30
--- NOTE | 2020-02-04 15:43 | NUR ---
"RD ASSESSMENT PMHx: hypercholesterolemia; HTN; GERD; obstructive bowel; chronic constipation; DM; CA(bladder); hip fracture PT INTERACTION: Pt was awake and pleasant during nutrition follow-up. Pt states he has been eating fair since last assessment. Note avg PO intake of 100% x3d, per chart review. Pt states no issues with n/v/c/d since last assessment. Note last BM was 02/02 and pt currently on bowel regimen of bisacodyl qd; colace BID; senna BID; and miralax BID, per chart review. ABNORMAL NUTRITION-RELATED LAB VALUES LOW: HIGH: BUN 23; cr 1.44; glu 145 Est. kcal needs: 2096-4264 kcal | 20-25 kcal/kg Est. Pro needs: 78-98 g Pro | 0.8-1.0 g Pro/kg PES STATEMENT: Given PO intake, no nutrition diagnosis at this time (NO-1.1) INTERVENTION: Continue with current diet order of Regular diet. Will continue to follow and reassess as pt needs, intake and status change. MONITOR/EVALUATE: PO Intake; Plan of Care; Hydration Status; Weight Status; Lab Values Damaso Salgado, MS, RD, LD"
[2020-02-04 17:29] VITALS: BP 133/87
[2020-02-04] MEDS ORDERED: SENN-20 PO (20:35)
[2020-02-04] MEDS ORDERED: MICO90PO TOP (20:35)
[2020-02-04] MEDS ORDERED: PANT40TA3 PO (20:35)
[2020-02-04] MEDS ORDERED: NYST15CR TP (20:35)
[2020-02-04] MEDS ORDERED: MULT1TAB63 PO (20:35)
[2020-02-04] MEDS ORDERED: CYCL10TA9 PO (20:35)
[2020-02-04] MEDS ORDERED: OXC5T PO (20:35)
[2020-02-04] MEDS ORDERED: ERGO50006 PO (20:35)
[2020-02-04] MEDS ORDERED: METO50TA15 PO (20:35)
[2020-02-04] MEDS ORDERED: ENOX40DI8 SC (20:35)
[2020-02-04] MEDS: MELATONIN 3 MG TABLET PO PRN (20:45)
[2020-02-05 06:00] VITALS: BP 153/84
[2020-02-05] MEDS: KCL 10 MEQ TAB (MICRO K) PO SCH (06:08)
[2020-02-05] MEDS: CATHETER FLUSH 10 ML SYR IV SCH ×3 (06:12→20:53)
--- NOTE | 2020-02-05 08:43 | PM&R Progress Note ---
Subjective HPI/CC On Admission Date Seen by Provider: Feb 05, 2020 Time Seen by Provider: 08:45 Subjective/Events-last exam Pt doing very well Finishing his ramp today Had a large BM today No fever Incision looks good, its just now a dark pink Discharge is planned for tomorrow Reviewed therapy notes Checked meds and labs Conferred with bicycle technician of Systems General: Fatigue Musculoskeletal: leg pain Objective Exam Vital Signs Vital Signs Date Time Temp Pulse Resp B/P (MAP) Pulse Ox O2 Delivery O2 Flow Rate FiO2 02/05/20 18:31 36.4 73 20 131/86 (101) 97 Room Air Capillary Refill : Less Than 3 SecondsLess Than 3 Seconds General Appearance: No Apparent Distress, WD/WN, Chronically ill HEENT: PERRL/EOMI, Normal ENT Inspection, Pharynx Normal Neck: Full Range of Motion, Non Tender Respiratory: Chest Non Tender, Lungs Clear, Normal Breath Sounds, No Accessory Muscle Use, No Respiratory Distress Cardiovascular: Regular Rate, Rhythm, No Edema, No Gallop, No JVD, No Murmur, Normal Peripheral Pulses Gastrointestinal: Normal Bowel Sounds, No Organomegaly, No Pulsatile Mass, Non Tender, Soft Back: Normal Inspection, No CVA Tenderness, No Vertebral Tenderness Extremity: Other (right thigh) Neurologic/Psychiatric: Alert, Oriented x3, Normal Mood/Affect, Motor Weakness (right sided chronic) Skin: Normal Color, Warm/Dry Lymphatic: No Adenopathy Results/Procedures Lab Patient resulted labs reviewed. FIM Transfers Therapy Code Descriptions/Definitions Functional [place] Measure: 0=Not Assessed/NA 4=Minimal Assistance 1=Total Assistance 5=Supervision or Setup 2=Maximal Assistance 6=Modified [place] 3=Moderate Assistance 7=Complete IndependenceSCALE: Activities may be completed with or without assistive devices. 7-Wsxunxlsgq-coigzmg completes the activity by him/herself with no assistance from a helper. 5-Set-up or Clean-up Assistance-helper sets up or cleans up; patient completes activity. [place] assists only prior to or following the activity. 4-Supervision or Touching Assistance-helper provides verbal cues and/or touching/steadying and/or contact guard assistance as patient completes activity. Assistance may be provided throughout the activity or intermittently. 3-Partial/Moderate Assistance-helper does LESS THAN HALF the effort. [place] lifts, holds or supports trunk or limbs, but provides less than half the effort. 2-Substantial/Maximal Assistance-helper does MORE THAN HALF the effort. [place] lifts or holds trunk or limbs and provides more than half the effort. 1-Lleeiyvtz-parcda does ALL the effort. Patient does none of the effort to complete the activity. Or, the assistance of 2 or more helpers is required for the patient to complete the activity. If activity was not attempted, code reason: 7-Patient Refused. 9-Not Applicable-not attempted and the patient did not perform the activity before the current illness, exacerbation or injury. 10-Not Attempted due to Environmental Limitations-(lack of equipment, weather restraints, etc.). 88-Not Attempted due to Medical Conditions or Safety Concerns. Roll Left to Right (QC): 6 Sit to Lying (QC): 3 Sit to Stand (QC): 4 (CGA for safety with occas cues for sequencing and hand placement) Chair/Dqs-cy-Timhb Xfer(QC): 4 Car Transfer (QC): 3 Gait Training Does the Patient Walk?: Yes Distance: 200'x2 Walk 10 feet (QC): 4 Walk 50 ft with 2 Turns(QC): 4 Walk 150 ft (QC): 4 Walking 10ft/uneven surface-QC: 88 Gait Persons Needed: 1 Gait Assistive Device: FWW Wheelchair Training Does the Pt Use a Wheelchair?: Yes Distance: 150' Wheel 50 ft with 2 turns (QC): 4 Wheel 150 ft (QC): 4 Type of Wheelchair: Manual Stair Training 1 Step (curb) (QC): 88 4 Steps (QC): 88 12 Steps (QC): 88 Balance Picking up an Object (QC): 88 ADL-Treatment Eating (QC): 6 Oral Hygiene (QC): 4 (SBA in stance at sink.) Bathing Location: L Arm, R Arm, R Upper Leg, L Lower Leg (including foot), R Lower Leg (including foot), Chest, Abdomen, Buttocks, Perineal Area Shower/Bathe Self (QC): 4 (Intermittent assist (L arm), CGA in stance for bottom hygiene. Utilized LHS for BLE) Upper Body Dressing (QC): 6 (IND in w/c.) Lower Body Dressing (QC): 4 (SBA in stance. Cues for use of [place] [employer], pt continues to attempt to thread RLE into pant leg, requires cues for redirection/ problem solving.) On/Off Footwear (QC): 2 (Pt completes LLE, pt max A with RLE- pt's to complete at home. ) Toileting Hygiene (QC): 4 (CGA in stance without use of grab bar for LUE movement.) Toilet Transfer (QC): 4 (SBA, use of annie walker.) Assessment/Plan Assessment and Plan Assess & Plan/Chief Complaint Assessment: s/p right hip fracture FUO at [facility] completed abx IV h/o CVA with right sided weakness HTN DM HTN CRI Entercolitis Right hip incision redness hematoma assessed by general surgery Right heel callous with ulcer managed by Dr Crocker Plan: IRF protocol Bladder and bowel management Manage incontinence Pain control Completed IV abx Appreciate Dr Meneses's reassurance Knee brace to prevent hyperreflexia Improving by the day DC 02/06/20 (1) Hip fracture (2) History of CVA with residual deficit (3) Right sided weakness (4) Hypertension (5) Diabetes (6) Hyperlipemia (7) Renal insufficiency (8) Anemia (9) Ileus (10) Colonic obstruction (11) [place]'s syndrome (12) GI bleed (13) Edema (14) Enterocolitis (15) FUO (fever of unknown origin) MARTIN JIM DO Feb 05, 2020 08:42
--- NOTE | 2020-02-05 09:49 | Occupational Ther Daily Note ---
OT Current Status-Daily Note Subjective Pt seen in bed, agreeable to OT tx session. Pt expresses minimal discomfort in R hip. pt agrees to modified sponge bath and home ex. Mental Status/Objective Patient Orientation: Person, Place, Time, Situation ADL-Treatment Therapy Code Descriptions/Definitions Functional [place] Measure: 0=Not Assessed/NA 4=Minimal Assistance 1=Total Assistance 5=Supervision or Setup 2=Maximal Assistance 6=Modified [place] 3=Moderate Assistance 7=Complete IndependenceSCALE: Activities may be completed with or without assistive devices. 7-Ioexlellov-nstbwma completes the activity by him/herself with no assistance from a helper. 5-Set-up or Clean-up Assistance-helper sets up or cleans up; patient completes activity. [place] assists only prior to or following the activity. 4-Supervision or Touching Assistance-helper provides verbal cues and/or touching/steadying and/or contact guard assistance as patient completes activity. Assistance may be provided throughout the activity or intermittently. 3-Partial/Moderate Assistance-helper does LESS THAN HALF the effort. [place] lifts, holds or supports trunk or limbs, but provides less than half the effort. 2-Substantial/Maximal Assistance-helper does MORE THAN HALF the effort. [place] lifts or holds trunk or limbs and provides more than half the effort. 3-Riwppwilw-cmqzxd does ALL the effort. Patient does none of the effort to complete the activity. Or, the assistance of 2 or more helpers is required for the patient to complete the activity. If activity was not attempted, code reason: 7-Patient Refused. 9-Not Applicable-not attempted and the patient did not perform the activity before the current illness, exacerbation or injury. 10-Not Attempted due to Environmental Limitations-(lack of equipment, weather restraints, etc.). 88-Not Attempted due to Medical Conditions or Safety Concerns. Eating (QC): 6 Oral Hygiene (QC): 4 (CGA in stance at sink. ) Bathing Location: R Arm, L Upper Leg, R Upper Leg, Chest, Abdomen, Buttocks, Perineal Area Shower/Bathe Self (QC): 3 (L arm assist for thoroughnessCGA in stance during bottom/ marta hygiene (sponge bath)) Upper Body Dressing (QC): 6 Lower Body Dressing (QC): 4 (CGA in stance to wire puller hipsPt requires cues throughout for maintenance of precautions, picks pants off of floor without AE- pt requires cues for correction; pt completes pants with AE correctly) On/Off Footwear: 2 (max- Pt dons L sock, unable to complete R sock. Pt expressed will complete at home as pt will wear slip on shoes.) Toileting Hygiene (QC): 4 (CGA) Toilet Transfer (QC): 4 (SBA-CGA) Other Treatment Pt completes QC's on this date. Pt plans to d/c tomorrow with . Pt does not express hesitation. Pt completes bed mob from semi-supine position with use of hand rail and SUP. Pt states no hand rail in bed- pt sleeps until 9am and is not present at this time- recommendation of bed rail. Pt completes ADLs EOB. Pt requires CGA to ambulate with annie walker to sink/ bathroom. Pt pushes manual w/c with SUP to therapy gym. pt given HEP/ completes with cues for positioning and repetitions/ purpose of each on tabletop with frictionless surface. Pt completes 10 reps of theraband exercises to be completed at home including: bicep curls, scaption, int/ external shoulder rotation, shoulder flexion, horizontal ab/ adduction. Pt expresses ability to complete at home. Pt completes 10 min standing/ reaching activity (peg dominos), pt expresses ability to problem solve activity and complete with accuracy. Expresses discomfort in R knee. Pt returns to sit, pushes self back to room with CLINIC ASSISTANT. Education OT Patient Education: Correct positioning, Exercise program, Home exercise program, Modified ADL techniques, Purpose of tx/functional activities, Reviewed precautions, Rehab process, Safety issues, Use of adapted equipment Teaching Recipient: Patient Teaching Methods: Demonstration, Discussion Response to Teaching: Verbalize Understanding, Return Demonstration OT Short Term Goals Short Term Goals Time Frame: Jan 30, 2020 Oral hygiene: 6 (met) Lower body dressin (met) Putting on/taking off footwear: 3 OT Government Teacher Goals Government Teacher Goals Time Frame: Feb 06, 2020 Eating (QC): 6 (met) Oral Hygiene (QC): 6 (met) Toileting Hygiene (QC): 6 Shower/Bathe Self (QC): 6 Upper Body Dressing (QC): 6 (met) Lower Body Dressing (QC): 6 On/Off Footwear (QC): 6 Additional Goals: 1-Demonstrate ADL Tasks, 2-Verbalize Understanding, 3- ImproveStrength/Delmy 1=Demonstrate adherence to instructed precautions during ADL tasks. 2=Patient will verbalize/demonstrate understanding of assistive devices/modifications for ADL. 3=Patient will improve strength/tolerance for activity to enable patient to perform ADL's. OT Education/Plan Problem List/Assessment Assessment: Decreased Activ Tolerance, Dependent Transfers, Impaired Bed Mobility, Impaired I ADL's, Impaired Self-Care Skills Discharge Recommendations Plan/Recommendations: Continue POC Therapy Discharge Recommendati: Intermittent Supervision, Home & Family, Post Acute OT Equpiment Recommendations-D/C: Hip Kit Comment other recommendation: bed rail. Treatment Plan/Plan of Care Treatment,Training & Education: Yes Patient would benefit from OT for education, treatment and training to promote independence in ADL's, mobility, safety and/or upper extremity function for ADL's. Plan of Care: ADL Retraining, Caregiver Training, Functional Mobility, Group Exercise/Act as Ind, Orthotic Fitting/Training, UE Funct Exercise/Act, UE Neuromus Re-Ed/Coord, W/C Management Training Treatment Duration: Feb 06, 2020 Frequency: At least 5 of 7 days/Wk (IRF) Estimated Hrs Per Day: 1.5 hours per day Agreement: Yes Rehab Potential: Fair Time/GCodes Start Time: 08:00 Stop Time: 09:30 Total Time Billed (hr/min): 90 Billed Treatment Time 1, ADL 3 (45), EX 3(45)= 90 GIOVANNA ARMENTA OTR Feb 05, 2020 09:49
--- NOTE | 2020-02-05 10:47 | Speech Therapy Daily Note ---
Speech Daily Progress Note Subjective Date Seen by Provider: Feb 05, 2020 Time Seen by Provider: 00:30 Patient is anxious to return home tomorrow. Objective Patient completed a series of general information q/a with >90% accuracy with 5% cues. Assessment Assessment Current Status: Good Progress Treatment Plan Discontinue ST Speech Short Term Goals Short Term Goals Short Term Goals 1. The patient will complete memory tasks at 90% accuracy with minimal cues. 2. The patient will complete problem-solving tasks at 90% accuracy with minimal cues. 3. The patient will complete safety awareness tasks at 90% accuracy with minimal cues. 4. The patient will complete word-finding tasks at 90% accuracy with minimal cues. Speech Medical Assistant Prn Goals Medical Assistant Prn Goals Patient will improve cognitive-communication necessary for safety and daily living tasks with minimal assist. Speech-Plan Patient/Family Goals Patient/Family Goals: Patient is returning to his home where he lives with his upon rehab discharge tomorrow. Treatment Plan Speech Therapy Treatment Plan: Discontinue ST Treatment Duration: Feb 06, 2020 Frequency: 5 times per week Estimated Hrs Per Day: .5 hour per day Rehab Potential: Fair Barriers to Learning: Patient has memory deficits for short term. Pt/Family Agrees to Plan: Yes Safety Risks/Education Teaching Recipient: Patient Teaching Methods: Demonstration, Discussion Response to Teaching: Verbalize Understanding, Return Demonstration Education Topics Provided: Safety upon his return home. Time Speech Therapy Time In: 09:30 Speech Therapy Time Out: 10:00 Total Billed Time: 30 Billed Treatment Time 1DAHLIA BETHANIA ST Feb 05, 2020 10:47
--- NOTE | 2020-02-05 10:59 | Physical Therapy Daily Note ---
PT Daily Note-Current Subjective Patient reports no pain or other symptoms. Appearance Patient was returned to room recliner with call light, tray, and urinal in reach. Mental Status Patient Orientation: Normal For Age Transfers SCALE: Activities may be completed with or without assistive devices. 9-Pgkuqzgmfr-mdplkbi completes the activity by him/herself with no assistance from a helper. 5-Set-up or Clean-up Assistance-helper sets up or cleans up; patient completes activity. [place] assists only prior to or following the activity. 4-Supervision or Touching Assistance-helper provides verbal cues and/or touching/steadying and/or contact guard assistance as patient completes activity. Assistance may be provided throughout the activity or intermittently. 3-Partial/Moderate Assistance-helper does LESS THAN HALF the effort. [place] lifts, holds or supports trunk or limbs, but provides less than half the effort. 2-Substantial/Maximal Assistance-helper does MORE THAN HALF the effort. [place] lifts or holds trunk or limbs and provides more than half the effort. 7-Afceyqrqk-ojssfp does ALL the effort. Patient does none of the effort to co mplete the activity. Or, the assistance of 2 or more helpers is required for the patient to complete the activity. If activity was not attempted, code reason: 7-Patient Refused. 9-Not Applicable-not attempted and the patient did not perform the activity before the current illness, exacerbation or injury. 10-Not Attempted due to Environmental Limitations-(lack of equipment, weather restraints, etc.). 88-Not Attempted due to Medical Conditions or Safety Concerns. Roll Left & Right (QC): 5 Sit to Lying (QC): 3 (mod A) Lying to Sitting/Side of Bed(Q: 3 (Needed PT to help with RLE and trunk less then 50% help needed) Sit to Stand (QC): 4 (SBA) Chair/Set-to-Efqbc Xfer(QC): 4 (CGA needed going to weak side and SBA going to strong side) Toilet Transfer (QC): 88 Car Transfer (QC): 4 (SBA strong side) Completed well with verbal cues for safety Weight Bearing Right Lower Extremity: Right Weight Bearing/Tolerated Left Lower Extremity: Left Full Weight Bearing Gait Training Does the Patient Walk?: Yes Distance: 200 ft Walk 10 feet (QC): 4 Walk 50 ft with 2 Turns(QC): 4 Walk 150 ft (QC): 4 Walking 10ft/uneven surface-QC: 4 (CGA) Gait Persons Needed: 1 Gait Assistive Device: Walker Haresh No sign of weakness or SBO during ambulation. CGA with turning, patient uses a right side knee immobilizer to control knee hyperextension and buckling. Patient performs mostly a step-to gait pattern with right leg leading, has right foot drop. Wheelchair Training Does the Pt Use a Wheelchair?: Yes Wheel 50 ft with 2 turns (QC): 5 Wheel 150 ft (QC): 5 Type of Wheelchair: Manual Stair Training 1 Step (curb) (QC): 4 (CGA) 4 Steps (QC): 88 12 Steps (QC): 88 Stairs: Pattern: Step to Patient educated to ambulate up step with good side first and down with the weak side first Balance Picking up an Object (QC): 88 Exercises Seated Therapy Exercises: Ankle pumps (LLE only 2x20), Long arc quads (2x10 ) Used attachment on Nustep to prevent greater then 90 degree flexion of RLE. NuStep Minutes: 15 NuStep Workload: 4 Treatments bed mobility and transfer training, balance and endurance training, functional strengthening, stair training, gait training, and education. Assessment Current Status: Fair Progress Patient needed a little more assist with supine <-> sit but otherwise is improving with general mobility. PT Short Term Goals Short Term Goals Time Frame: Jan 30, 2020 Roll Left & Right: 6 Sit to lyin Lying to sitting on side of be: 4 Sit to stand: 4 Chair/zxz-zt-qhnha transfer: 4 Walk 10 feet: 4 PT Usp Goals Composition Tile Layer Goals PT Composition Tile Layer Goals Time Frame: Feb 13, 2020 Roll Left & Right (QC): 6 Sit to Lying (QC): 6 Lying-Sitting on Side/Bed(QC): 6 Sit to Stand (QC): 4 (SBA) Chair/Egb-hh-Pbjio Xfer(QC): 4 (SBA) Toilet Transfer (QC): 4 (SBA) Car Transfer (QC): 4 (SBA) Does the Patient Walk: Yes Walk 10 feet (QC): 4 Walk 50ft with 2 Turns (QC): 4 Walking 10ft on Uneven Surface: 4 1 Step (curb) (QC): 4 PT Plan Problem List Problem List: Activity Tolerance, Functional Strength, Safety, Balance, Gait, Transfer, Bed Mobility Treatment/Plan Treatment Plan: Continue Plan of Care Treatment Plan: Bed Mobility, Education, Functional Activity Delmy, Functional Strength, Group Therapy, Gait, Safety, Therapeutic Exercise, Transfers Treatment Duration: Feb 13, 2020 Frequency: At least 5 of 7 days/Wk (IRF) Estimated Hrs Per Day: 1.5 hours per day Patient and/or Family Agrees t: Yes Safety Risks/Education Patient Education: Gait Training, Transfer Techniques, Steps, Reviewed Precautions, Correct Positioning, W/C Management, Safety Issues Teaching Recipient: Patient Teaching Methods: Demonstration, Discussion Response to Teaching: Reinforcement Needed Time/GCodes Time In: 1000 Time Out: 1100 Total Billed Treatment Time: 60 Total Billed Treatment 1 visit GT 15' EX 20' FA 25 BROOKE WORLEY PT Feb 05, 2020 10:59
[2020-02-05] MEDS: DOCUSATE SODIUM 100 MG (COLACE) CAP PO SCH ×2 (11:10→20:51)
[2020-02-05] MEDS: meTOprolol TARTRATE 50 MG (LOPRESSOR) TAB PO SCH ×2 (11:10→20:51)
[2020-02-05] MEDS: MULTIVIT W/MINERALS TAB (THERAGRAN M) PO SCH (11:10)
[2020-02-05] MEDS: PANTOPRAZOLE 40 MG (PROTONIX) TAB PO SCH (11:10)
[2020-02-05] MEDS: amLODIPine 5 MG (NORVASC) TAB PO SCH (11:10)
[2020-02-05] MEDS: glipiZIDE 5 MG (GLUCOTROL) TAB PO SCH (11:10)
[2020-02-05] MEDS: ENOXAPARIN 40 MG/0.4 ML (LOVENOX) SYR SC SCH (11:12)
[2020-02-05] MEDS: MICONAZOLE 2% POWDER (DESENEX AF) 90 GM TOP SCH ×2 (11:14→20:52)
[2020-02-05] MEDS: NYSTATIN CREAM (MYCOSTATIN) 30 GM TUBE TP SCH ×3 (11:14→20:52)
[2020-02-05] MEDS: BISACODYL 10 MG SUPP (DULCOLAX) RC SCH (11:15)
[2020-02-05] MEDS: polyethylene glycoL POWDER 17 GM (MIRALAX) PACK PO SCH ×2 (11:15→20:01)
[2020-02-05] MEDS: SENNA W/DOCUSATE (SENOKOT S) TABLET PO SCH ×2 (11:15→20:01)
--- NOTE | 2020-02-05 13:31 | Physical Therapy Daily Note ---
PT Daily Note-Current Subjective No pain or increase in fatigue Appearance Patient returned to room recliner with call light, urinal, and tray in reach. Mental Status Patient Orientation: Person, Place, Situation Transfers SCALE: Activities may be completed with or without assistive devices. 2-Ouwoxpnsdd-orzjjeh completes the activity by him/herself with no assistance from a helper. 5-Set-up or Clean-up Assistance-helper sets up or cleans up; patient completes activity. [place] assists only prior to or following the activity. 4-Supervision or Touching Assistance-helper provides verbal cues and/or touching/steadying and/or contact guard assistance as patient completes activity. Assistance may be provided throughout the activity or intermittently. 3-Partial/Moderate Assistance-helper does LESS THAN HALF the effort. [place] lifts, holds or supports trunk or limbs, but provides less than half the effort. 2-Substantial/Maximal Assistance-helper does MORE THAN HALF the effort. [place] lifts or holds trunk or limbs and provides more than half the effort. 3-Plqngwdhd-fcqfud does ALL the effort. Patient does none of the effort to complete the activity. Or, the assistance of 2 or more helpers is required for the patient to complete the activity. If activity was not attempted, code reason: 7-Patient Refused. 9-Not Applicable-not attempted and the patient did not perform the activity be fore the current illness, exacerbation or injury. 10-Not Attempted due to Environmental Limitations-(lack of equipment, weather restraints, etc.). 88-Not Attempted due to Medical Conditions or Safety Concerns. Sit to Lying (QC): 3 (Mod A lifting RLE and trunk to supine) Lying to Sitting/Side of Bed(Q: 3 (Less then 50% help to sitting at EOB) Sit to Stand (QC): 4 (CGA ) Toilet Transfer (QC): 3 (Mod A with standing from toilet due to dougie of the seat) Patient is bearing increase weight through RLE Weight Bearing Right Lower Extremity: Right Weight Bearing/Tolerated Left Lower Extremity: Left Full Weight Bearing Gait Training Does the Patient Walk?: Yes Distance: 100 Walk 10 feet (QC): 4 (CGA) Walk 50 ft with 2 Turns(QC): 4 (CGA) Gait Assistive Device: Walker Haresh Patient ambulated slow but no rest breaks needed between start and end points Wheelchair Training Does the Pt Use a Wheelchair?: Yes Wheel 50 ft with 2 turns (QC): 5 Type of Wheelchair: Manual Patient is complete independent Exercises Seated Therapy Exercises: Ankle pumps, Hip flexion Seated Reps: 10 Treatments Ambulation, strength, transfers, functional mobility, toileting, patient was on toilet pre tx, assisted patient with standing and cleaning and redressing Assessment Current Status: Good Progress Patient is improving with increase body weight bearing through RLE during ambulation. This has improved his speed and timing with gait. Patient understands safety precautions needed to transfer and ambulate safely. PT Short Term Goals Short Term Goals Time Frame: Jan 30, 2020 Roll Left & Right: 6 Sit to lyin Lying to sitting on side of be: 4 Sit to stand: 4 Chair/psi-zl-jhibu transfer: 4 Walk 10 feet: 4 PT Molded Parts Inspector Goals Molded Parts Inspector Goals PT Mcc Goals Time Frame: Feb 13, 2020 Roll Left & Right (QC): 6 Sit to Lying (QC): 6 Lying-Sitting on Side/Bed(QC): 6 Sit to Stand (QC): 4 (SBA) Chair/Wpd-uh-Mrinl Xfer(QC): 4 (SBA) Toilet Transfer (QC): 4 (SBA) Car Transfer (QC): 4 (SBA) Does the Patient Walk: Yes Walk 10 feet (QC): 4 Walk 50ft with 2 Turns (QC): 4 Walking 10ft on Uneven Surface: 4 1 Step (curb) (QC): 4 PT Plan Problem List Problem List: Activity Tolerance, Functional Strength, Safety, Balance, Gait, Transfer, Bed Mobility Treatment/Plan Treatment Plan: Continue Plan of Care Treatment Plan: Bed Mobility, Education, Functional Activity Delmy, Functional Strength, Group Therapy, Gait, Safety, Therapeutic Exercise, Transfers Treatment Duration: Feb 13, 2020 Frequency: At least 5 of 7 days/Wk (IRF) Estimated Hrs Per Day: 1.5 hours per day Patient and/or Family Agrees t: Yes Safety Risks/Education Patient Education: Gait Training, Transfer Techniques, W/C Management, Safety Issues Teaching Recipient: Patient Teaching Methods: Demonstration, Discussion Response to Teaching: Verbalize Understanding educated to bring w/c closer to the bed to decrease the gap needed to transfer from w/c<>bed for increase safety. Time/GCodes Time In: 1300 Time Out: 1330 Total Billed Treatment Time: 2 Total Billed Treatment Visit 1 GT 15' FA 15' BROOKE WORLEY PT Feb 05, 2020 13:31
[2020-02-05 15:23] VITALS: BP 131/86
[2020-02-05 18:31] VITALS: BP 131/86
[2020-02-06 05:03] VITALS: BP 136/84
[2020-02-06] MEDS: KCL 10 MEQ TAB (MICRO K) PO SCH (05:40)
[2020-02-06] MEDS: CATHETER FLUSH 10 ML SYR IV SCH (05:40)
[2020-02-06] MEDS: polyethylene glycoL POWDER 17 GM (MIRALAX) PACK PO SCH (08:01)
[2020-02-06] MEDS: SENNA W/DOCUSATE (SENOKOT S) TABLET PO SCH (08:01)
[2020-02-06] MEDS: MULTIVIT W/MINERALS TAB (THERAGRAN M) PO SCH (08:37)
[2020-02-06] MEDS: PANTOPRAZOLE 40 MG (PROTONIX) TAB PO SCH (08:37)
[2020-02-06] MEDS: glipiZIDE 5 MG (GLUCOTROL) TAB PO SCH (08:37)
[2020-02-06] MEDS: DOCUSATE SODIUM 100 MG (COLACE) CAP PO SCH (08:37)
[2020-02-06] MEDS: meTOprolol TARTRATE 50 MG (LOPRESSOR) TAB PO SCH (08:37)
[2020-02-06] MEDS: ENOXAPARIN 40 MG/0.4 ML (LOVENOX) SYR SC SCH (08:37)
[2020-02-06] MEDS: NYSTATIN CREAM (MYCOSTATIN) 30 GM TUBE TP SCH (08:38)
[2020-02-06] MEDS: MICONAZOLE 2% POWDER (DESENEX AF) 90 GM TOP SCH (08:38)
[2020-02-06] MEDS: BISACODYL 10 MG SUPP (DULCOLAX) RC SCH (08:38)
--- NOTE | 2020-02-06 08:39 | Discharge Summary ---
Diagnosis/Chief Complaint Date of Admission Jan 22, 2020 at 17:04 Date of Discharge Discharge Date: Feb 06, 2020 Discharge Diagnosis Assessment: s/p right hip fracture FUO at [facility] completed abx IV h/o CVA with right sided weakness HTN DM HTN CRI Entercolitis Right hip incision redness hematoma assessed by general surgery Right heel callous with ulcer managed by Dr Crocker Plan: IRF protocol Bladder and bowel management Manage incontinence Pain control Completed IV abx Appreciate Dr Meneses's reassurance Knee brace to prevent hyperreflexia Improving by the day DC 02/06/20 (1) Hip fracture (2) History of CVA with residual deficit (3) Right sided weakness (4) Hypertension (5) Diabetes (6) Hyperlipemia (7) Renal insufficiency (8) Anemia (9) Ileus (10) Colonic obstruction (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 (12) GI bleed (13) Edema (14) Enterocolitis (15) FUO (fever of unknown origin) Discharge Summary Discharge Physical Examination Allergies: Coded Allergies: No Known Drug Allergies (Unverified , 01/21/17) Vitals & I&Os Vital Signs Date Time Temp Pulse Resp B/P (MAP) Pulse Ox O2 Delivery O2 Flow Rate FiO2 02/06/20 10:50 02/06/20 08:00 Room Air 02/06/20 05:03 37.2 72 16 97 General Appearance: Alert, Oriented X3, Cooperative Respiratory: Clear to Auscultation Cardiovascular: Regular Rate Abdominal: Normal Bowel Sounds Psych/Mental Status: Mental Status NL Hospital Course Was the Problem List Reviewed?: Yes Hospital Course: Pt had an uneventful hospital course for 15 days after he was admitted for a right hip fracture, hx of stroke with right sided hemiparesis. Pt overall participated very well, obtained a knee brace from PT that helped hyperreflexic tendency for the right leg. He was able to ambulate with a annie cane and completed IV antibiotics of Cefepime and Flagyl and incision was monitored by general surgery, no evidence of an infection and pt was discharged in improved condition with home health. Labs (last 24 hrs) Laboratory Tests 01/23/20 06:08: Glucometer 158H 01/23/20 06:36: White Blood Count 8.5, Red Blood Count 3.11L, Hemoglobin 9.0L, Hematocrit 27L, Mean Corpuscular Volume 88, Mean Corpuscular Hemoglobin 29, Mean Corpuscular Hemoglobin Concent 33, Red Cell Distribution Width 14.1, Platelet Count 371, Mean Platelet Volume 8.0, Neutrophils (%) (Auto) 72, Lymphocytes (%) (Auto) 14, Monocytes (%) (Auto) 10, Eosinophils (%) (Auto) 3, Basophils (%) (Auto) 0, Neutrophils # (Auto) 6.2, Lymphocytes # (Auto) 1.2, Monocytes # (Auto) 0.9, Eosinophils # (Auto) 0.3, Basophils # (Auto) 0.0, Sodium Level 137, Potassium Level 3.5L, Chloride Level 106, Carbon Dioxide Level 24, Anion Gap 7, Blood Urea Nitrogen 12, Creatinine 1.20, Estimat Glomerular Filtration Rate > 60, BUN/Creatinine Ratio 10, Glucose Level 155H, Calcium Level 7.8L, Corrected Calcium 8.8, Total Bilirubin 0.5, Aspartate Amino Transf (AST/SGOT) 22, Alanine Aminotransferase (ALT/SGPT) 21, Alkaline Phosphatase 41, Total Protein 5.5L, Albumin 2.8L 01/24/20 06:25: Glucometer 171H 01/25/20 05:24: Glucometer 133H 01/26/20 06:27: Glucometer 147H 01/26/20 08:26: White Blood Count 9.4, Red Blood Count 3.66L, Hemoglobin 10.6L, Hematocrit 33L, Mean Corpuscular Volume 90, Mean Corpuscular Hemoglobin 29, Mean Corpuscular Hemoglobin Concent 32, Red Cell Distribution Width 14.9H, Platelet Count 480H, Mean Platelet Volume 8.3, Neutrophils (%) (Auto) 78H, Lymphocytes (%) (Auto) 12, Monocytes (%) (Auto) 8, Eosinophils (%) (Auto) 2, Basophils (%) (Auto) 1, Neutrophils # (Auto) 7.3, Lymphocytes # (Auto) 1.1, Monocytes # (Auto) 0.7, Eosinophils # (Auto) 0.2, Basophils # (Auto) 0.1, Sodium Level 135, Potassium Level 4.1, Chloride Level 104, Carbon Dioxide Level 23, Anion Gap 8, Blood Urea Nitrogen 17, Creatinine 1.56H, Estimat Glomerular Filtration Rate 45, BUN/Creatinine Ratio 11, Glucose Level 208H, Calcium Level 8.6, Corrected Calcium 9.1, Total Bilirubin 0.5, Aspartate Amino Transf (AST/SGOT) 26, Alanine Aminotransferase (ALT/SGPT) 25, Alkaline Phosphatase 53, Total Protein 6.8, Albumin 3.4 01/27/20 05:24: Glucometer 140H 01/28/20 05:25: White Blood Count 7.4, Red Blood Count 3.66L, Hemoglobin 10.5L, Hematocrit 33L, Mean Corpuscular Volume 90, Mean Corpuscular Hemoglobin 29, Mean Corpuscular Hemoglobin Concent 32, Red Cell Distribution Width 15.2H, Platelet Count 417H, Mean Platelet Volume 8.6, Neutrophils (%) (Auto) 66, Lymphocytes (%) (Auto) 18, Monocytes (%) (Auto) 11, Eosinophils (%) (Auto) 4, Basophils (%) (Auto) 0, Neutrophils # (Auto) 4.9, Lymphocytes # (Auto) 1.4, Monocytes # (Auto) 0.8, Eosinophils # (Auto) 0.3, Basophils # (Auto) 0.0, Sodium Level 140, Potassium Level 4.4, Chloride Level 108H, Carbon Dioxide Level 24, Anion Gap 8, Blood Urea Nitrogen 17, Creatinine 1.47H, Estimat Glomerular Filtration Rate 48, BU N/Creatinine Ratio 12, Glucose Level 126H, Calcium Level 8.6, Corrected Calcium 9.2, Total Bilirubin 0.3, Aspartate Amino Transf (AST/SGOT) 23, Alanine Aminotransferase (ALT/SGPT) 23, Alkaline Phosphatase 58, Total Protein 6.4, Albumin 3.3 01/29/20 07:36: Glucometer 194H 01/30/20 06:54: Glucometer 151H 01/31/20 05:09: Glucometer 141H 02/01/20 05:52: Glucometer 159H 02/02/20 05:35: Glucometer 179H 02/03/20 05:53: Glucometer 167H 02/04/20 05:40: White Blood Count 6.2, Red Blood Count 3.85L, Hemoglobin 11.3L, Hematocrit 35L, Mean Corpuscular Volume 91, Mean Corpuscular Hemoglobin 29, Mean Corpuscular Hemoglobin Concent 32, Red Cell Distribution Width 14.5, Platelet Count 219, Mean Platelet Volume 8.9, Neutrophils (%) (Auto) 65, Lymphocytes (%) (Auto) 21, Monocytes (%) (Auto) 10, Eosinophils (%) (Auto) 4, Basophils (%) (Auto) 1, Neutrophils # (Auto) 4.0, Lymphocytes # (Auto) 1.3, Monocytes # (Auto) 0.6, Eosinophils # (Auto) 0.2, Basophils # (Auto) 0.0, Sodium Level 140, Potassium Level 4.1, Chloride Level 106, Carbon Dioxide Level 24, Anion Gap 10, Blood Urea Nitrogen 23H, Creatinine 1.44H, Estimat Glomerular Filtration Rate 49, BUN /Creatinine Ratio 16, Glucose Level 145H, Calcium Level 9.0, Corrected Calcium 9.2, Total Bilirubin 0.4, Aspartate Amino Transf (AST/SGOT) 25, Alanine Aminotransferase (ALT/SGPT) 39, Alkaline Phosphatase 80, Total Protein 6.8, Albumin 3.7 02/05/20 06:39: Glucometer 155H 02/06/20 05:39: Glucometer 146H Pending Labs Laboratory Tests 01/23/20 06:08: Glucometer 158 01/23/20 06:36: White Blood Count 8.5, Red Blood Count 3.11, Hemoglobin 9.0, Hematocrit 27, Mean Corpuscular Volume 88, Mean Corpuscular Hemoglobin 29, Mean Corpuscular Hemo globin Concent 33, Red Cell Distribution Width 14.1, Platelet Count 371, Mean Platelet Volume 8.0, Neutrophils (%) (Auto) 72, Lymphocytes (%) (Auto) 14, Monocytes (%) (Auto) 10, Eosinophils (%) (Auto) 3, Basophils (%) (Auto) 0, Neutrophils # (Auto) 6.2, Lymphocytes # (Auto) 1.2, Monocytes # (Auto) 0.9, Eosinophils # (Auto) 0.3, Basophils # (Auto) 0.0, Sodium Level 137, Potassium Le carolyn 3.5, Chloride Level 106, Carbon Dioxide Level 24, Anion Gap 7, Blood Urea Nitrogen 12, Creatinine 1.20, Estimat Glomerular Filtration Rate > 60, BUN/Creatinine Ratio 10, Glucose Level 155, Calcium Level 7.8, Corrected Calcium 8.8, Total Bilirubin 0.5, Aspartate Amino Transf (AST/SGOT) 22, Alanine Aminotransferase (ALT/SGPT) 21, Alkaline Phosphatase 41, Total Protein 5.5, Albumin 2.8 01/24/20 06:25: Glucometer 171 01/25/20 05:24: Glucometer 133 01/26/20 06:27: Glucometer 147 01/26/20 08:26: White Blood Count 9.4, Red Blood Count 3.66, Hemoglobin 10.6, Hematocrit 33, Mean Corpuscular Volume 90, Mean Corpuscular Hemoglobin 29, Mean Corpuscular Hemoglobin Concent 32, Red Cell Distribution Width 14.9, Platelet Count 480, Mean Platelet Volume 8.3, Neutrophils (%) (Auto) 78, Lymphocytes (%) (Auto) 12, Monocytes (%) (Auto) 8, Eosinophils (%) (Auto) 2, Basophils (%) (Auto) 1, Neutrophils # (Auto) 7.3, Lymphocytes # (Auto) 1.1, Monocytes # (Auto) 0.7, Eosinophils # (Auto) 0.2, Basophils # (Auto) 0.1, Sodium Level 135, Potassium Level 4.1, Chloride Level 104, Carbon Dioxide Level 23, Anion Gap 8, Blood Urea Nitrogen 17, Creatinine 1.56, Estimat Glomerular Filtration Rate 45, BUN/Creatinine Ratio 11, Glucose Level 208, Calcium Level 8.6, Corrected Calcium 9.1, Total Bilirubin 0.5, Aspartate Amino Transf (AST/SGOT) 26, Alanine Aminotransferase (ALT/SGPT) 25, Alkaline Phosphatase 53, Total Protein 6.8, Albumin 3.4 01/27/20 05:24: Glucometer 140 01/28/20 05:25: White Blood Count 7.4, Red Blood Count 3.66, Hemoglobin 10.5, Hematocrit 33, Mean Corpuscular Volume 90, Mean Corpuscular Hemoglobin 29, Mean Corpuscular Hemoglobin Concent 32, Red Cell Distribution Width 15.2, Platelet Count 417, Mean Platelet Volume 8.6, Neutrophils (%) (Auto) 66, Lymphocytes (%) (Auto) 18, Monocytes (%) (Auto) 11, Eosinophils (%) (Auto) 4, Basophils (%) (Auto) 0, Neutrophils # (Auto) 4.9, Lymphocytes # (Auto) 1.4, Monocytes # (Auto) 0.8, Eosinophils # (Auto) 0.3, Basophils # (Auto) 0.0, Sodium Level 140, Potassium Level 4.4, Chloride Level 108, Carbon Dioxide Level 24, Anion Gap 8, Blood Urea Nitrogen 17, Creatinine 1.47, Estimat Glomerular Filtration Rate 48, BUN/Creatinine Ratio 12, Glucose Level 126, Calcium Level 8.6, Corrected Calcium 9.2, Total Bilirubin 0.3, Aspartate Amino Transf (AST/SGOT) 23, Alanine Aminotransferase (ALT/SGPT) 23, Alkaline Phosphatase 58, Total Protein 6.4, Albumin 3.3 01/29/20 07:36: Glucometer 194 01/30/20 06:54: Glucometer 151 01/31/20 05:09: Glucometer 141 02/01/20 05:52: Glucometer 159 02/02/20 05:35: Glucometer 179 02/03/20 05:53: Glucometer 167 02/04/20 05:40: White Blood Count 6.2, Red Blood Count 3.85, Hemoglobin 11.3, Hematocrit 35, Mean Corpuscular Volume 91, Mean Corpuscular Hemoglobin 29, Mean Corpuscular Hemoglobin Concent 32, Red Cell Distribution Width 14.5, Platelet Count 219, Mean Platelet Volume 8.9, Neutrophils (%) (Auto) 65, Lymphocytes (%) (Auto) 21, Monocytes (%) (Auto) 10, Eosinophils (%) (Auto) 4, Basophils (%) (Auto) 1, Neutrophils # (Auto) 4.0, Lymphocytes # (Auto) 1.3, Monocytes # (Auto) 0.6, Eosinophils # (Auto) 0.2, Basophils # (Auto) 0.0, Sodium Level 140, Potassium Level 4.1, Chloride Level 106, Carbon Dioxide Level 24, Anion Gap 10, Blood Urea Nitrogen 23, Creatinine 1.44, Estimat Glomerular Filtration Rate 49, BUN/Creatinine Ratio 16, Glucose Level 145, Calcium Level 9.0, Corrected Calcium 9.2, Total Bilirubin 0.4, Aspartate Amino Transf (AST/SGOT) 25, Alanine Aminotra nsferase (ALT/SGPT) 39, Alkaline Phosphatase 80, Total Protein 6.8, Albumin 3.7 02/05/20 06:39: Glucometer 155 02/06/20 05:39: Glucometer 146 Discharge Home Medications: Active Scripts Active Oxycodone IR (Oxycodone HCl) 5 Mg Tab 10 Mg PO Q4H PRN Thera-M Tablet (Multivits,Ca,Minerals/Iron/FA) 1 Each Tablet 1 Ea PO DAILY Vitamin D2 (Ergocalciferol (Vitamin D2)) 1,250 Mcg Capsule 1.25 Mg PO AGUILAR@0700 Nystatin 15 Gm Cream..g. 0 Gm TP TID Lotrimin AF (Miconazole Nitrate) 90 Gm Powder 0 Gm TOP BID Pantoprazole Sodium 40 Mg Tablet.dr 40 Mg PO DAILY Senna-Time S Tablet (Sennosides/Docusate Sodium) 1 Each Tablet 1 Ea PO Q12H PRN Metoprolol Tartrate 50 Mg Tablet 50 Mg PO BID Enoxaparin Sodium 40 Mg/0.4 Ml Syringe 40 Mg SC Q24H Cyclobenzaprine HCl 10 Mg Tablet 10 Mg PO TID PRN Reported Atorvastatin Calcium 40 Mg Tablet 40 Mg PO HS Amlodipine Besylate 10 Mg Tablet 10 Mg PO DAILY Glipizide 5 Mg Tablet 5 Mg PO DAILY Acetaminophen 325 Mg Tablet 650 Mg PO Q6H PRN Instructions to patient/family Please see electronic discharge instructions given to patient. 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
[2020-02-06] MEDS: amLODIPine 5 MG (NORVASC) TAB PO SCH (08:40)
--- NOTE | 2020-02-06 10:39 | Therapy Team Discharge Summary ---
Therapy Discharge Summary Discharge Recommendations Date of Discharge Occupational Therapy Decreased Activ Tolerance, Dependent Transfers, Impaired Bed Mobility, Impaired I ADL's, Impaired Self-Care Skills Speech-Language Pathology Patient was admitted to the ARU due to debility. The patient was given the SLUMS and was noted to have decreased cognitive function. The patient received skilled ST services with focus on safety awareness and memory for a safe return home. The patient will be discharged to home with his this date as well as ST. PT Jail Goals Line Mover Goals PT Jail Goals Time Frame: Feb 13, 2020 Roll Left to Right (QC): 6 Sit to Lying (QC): 6 Lying-Sitting on Side/Bed(QC): 6 Sit to Stand (QC): 4 (SBA) Chair/Qsm-oh-Jtihw Xfer(QC): 4 (SBA) Car Transfer (QC): 4 (SBA) Does the Patient Walk: Yes Walk 10 feet (QC): 4 Walk 10ft-Uneven Surface(QC): 4 Walk 50ft with 2 Turns (QC): 4 1 Step (curb) (QC): 4 OT Line Mover Goals Jail Goals Time Frame: Feb 06, 2020 Eating (FIM): 6 Eating (QC): 6 (met) Oral Hygiene (QC): 6 (met) Shower/Bathe Self (QC): 6 Upper Body Dressing (QC): 6 (met) Lower Body Dressing (QC): 6 On/Off Footwear (QC): 6 Toileting(FIM): 6 Toileting Hygiene (QC): 6 Toilet/Commode Transfer (QC): 4 (SBA) Additional Goals: 1-Demonstrate ADL Tasks, 2-Verbalize Understanding, 3- ImproveStrength/Delmy 1=Demonstrate adherence to instructed precautions during ADL tasks. 2=Patient will verbalize/demonstrate understanding of assistive devices/modifications for ADL. 3=Patient will improve strength/tolerance for activity to enable patient to perform ADL's. Speech Jail Goals Jail Goals Patient will improve cognitive-communication necessary for safety and daily living tasks with minimal assist. OSVALDO FIELDS Feb 06, 2020 10:39
--- NOTE | 2020-02-06 11:18 | D/C HH Face to Face Order ---
D/C Face to Face Orders Reconcile Patient Problems Problems Reviewed?: Yes Instructions for Patient [facility] Patient Instructions/FollowUp: PCP 1 week Ortho as scheduled Physician to follow Patient: PCP Discharge Diet for Home: ADA Diet Patient Problems: right hip fracture h/o CVA right sided weakness Goals for Patient: [place] Patient Data-Allergies,Ht & Wt Patient Allergies: Coded Allergies: No Known Drug Allergies (Unverified , 01/21/17) Height (Feet): 5 Height (Inches): 11.00 Weight (Pounds): 209 Weight (Ounces): 4.0 Home Health Need/Face to Face Date of Face to Face: Feb 06, 2020 Clinical Findings: Generalized weakness and fatigue, Instability, Muscle weakness, Pain with ambulation, Unsteady gait I have seen Pt dpfd-[id number]: Yes Discharged To: Home Diagnosis/Conditions: right hip fracture h/o CVA right sided weakness Patient is Homebound due to: Pavithra fall risk due to instabilty, Muscle weakness, Pain w/ambulation Homebound Status Due to the above stated illness, injury or surgical procedure (medical condition or diagnosis) and associated clinical findings, the patient is homebound because of his/her inability to leave home except with aid of a supportive device and/or person AND leaving the home requires a considerable and taxing effort or is medically contraindicated. Pt req the following assistanc: Cane, Walker Home Health Nursing Orders Home Health Services Order: Nursing Services (heel wound evaluation and management and Lovenox injections daily), Therapy Administrative Assistant-Evaluate & Treat, Physical Therapy-Evaluate & Treat Certify Stmt I certify that this patient is under my care and that I, a nurse practitioner or a physician; a assistant bookkeeper working with me, had a face to face encounter that - meets the physician face to face encounter requirements with this patient as dated. MARTIN JIM DO Feb 06, 2020 11:18
--- NOTE | 2020-02-06 12:36 | NUR ---
CM/SS DISCHARGE [facility]: Referral finalized with [facility] as planned for RN, PT, OT. Warping Machine Operator confirmed agency received discharge instructions and orders. Patient spouse here this a.m. to transport, patient was dressed and ready to leave. Unit RN aware of all arrangements. Addendum: 02/06/20 at 1447 by CHAPIS ROCHE Faxed continuum of care information to PCP: Layla Vail NP [facility] [phone] PH [phone]
--- NOTE | 2020-02-06 14:17 | Therapy Team Discharge Summary ---
Therapy Discharge Summary Discharge Recommendations Date of Discharge Feb 06, 2020 at 10:50 Physical Therapy Patient came to rehab with a hip R hemiarthroplasty. Upon evaluation patient performed bed mobility and transfers with min assist, car transfer min assist, setup with WC for 150'. Patient has been performing bed mobility and transfer training, balance and endurance training, functional strengthening, stair training, gait training, and education. Patient has made fair progress and has met all of his fpc goals except for bed mobility. Now, patient performs bed mobility with CGA/Urszula, transfers with CGA, car transfer CGA, ambulates 200' with a hemiwalker and right knee immobilizer with CGA (including 50' with at least 2 turns of 90 degrees and 10' over an uneven surface), and can go up and down 1 step using a hemiwalker with CGA. Patient has been discharged from this facility and will be discharged from PT at this time. Occupational Therapy Decreased Activ Tolerance, Dependent Transfers, Impaired Bed Mobility, Impaired I ADL's, Impaired Self-Care Skills PT Intermediate Goals Intermediate Goals PT Intermediate Goals Time Frame: Feb 13, 2020 Roll Left to Right (QC): 6 Sit to Lying (QC): 6 Lying-Sitting on Side/Bed(QC): 6 Sit to Stand (QC): 4 (SBA) Chair/Rqk-my-Zfoaq Xfer(QC): 4 (SBA) Car Transfer (QC): 4 (SBA) Does the Patient Walk: Yes Walk 10 feet (QC): 4 Walk 10ft-Uneven Surface(QC): 4 Walk 50ft with 2 Turns (QC): 4 1 Step (curb) (QC): 4 OT Intermediate Goals Hand I Blocker Goals Time Frame: Feb 06, 2020 Eating (FIM): 6 Eating (QC): 6 (met) Oral Hygiene (QC): 6 (met) Shower/Bathe Self (QC): 6 Upper Body Dressing (QC): 6 (met) Lower Body Dressing (QC): 6 On/Off Footwear (QC): 6 Toileting(FIM): 6 Toileting Hygiene (QC): 6 Toilet/Commode Transfer (QC): 4 (SBA) Additional Goals: 1-Demonstrate ADL Tasks, 2-Verbalize Understanding, 3- ImproveStrength/Delmy 1=Demonstrate adherence to instructed precautions during ADL tasks. 2=Patient will verbalize/demonstrate understanding of assistive devices/mo difications for ADL. 3=Patient will improve strength/tolerance for activity to enable patient to perform ADL's. Speech Intermediate Goals Intermediate Goals Patient will improve cognitive-communication necessary for safety and daily living tasks with minimal assist. BROOKE WORLEY PT Feb 06, 2020 14:17
--- NOTE | 2020-02-07 10:10 | NUR ---
CM/JANELLE LATE ENTRY. Call from [facility] [place] that PCP was not willing to sign for services until patient could be seen in their [facility] clinic. [employer] contacted clinic, they stated patient had only had one visit there in 2019; therefore, they requested he return for current assessment. [employer] followed up with spouse Lauren, she had been proactive and gotten patient scheduled for an appointment 02/11/20, at a [facility]. She has updated [employer] re same and they are prepared to provide same day services once primary care is established. Patient's had connected with [facility] in [place], a great distance from their home in [place]. Spouse explained that now that he has Medicare and , they are more free financially to obtain local healthcare. [employer] reminded that if wishing to continue within the [facility] network, there are clinics within close proximity to transfer into. Addendum: 02/07/20 at 1456 by CHAPIS LUIS Final summary. Dr. Lindo agreed to sign for [facility] services so that patient could be seen for [facility] per his discharge orders. Physician care, monitor, and [facility] service management will transition to Dr. Matthews on Tuesday. Leona Whelan confirmed that all interim arrangements were completed and they will see patient tomorrow.
--- NOTE | 2020-02-07 12:03 | Therapy Team Discharge Summary ---
Therapy Discharge Summary Discharge Recommendations Date of Discharge Feb 06, 2020 at 10:50 Occupational Therapy Pt admits to ARU with R hip hemiarthroplasty. Pt QC;s upon admission: eating 5, showering 2, UB dress 5, LB dress 2, footwear 1, toileting 3; pt and OT work towards higher functional IND through UE exercise, safety awareness, AE training, ADL retraining. Pt limited by short term memory status, lack of compliance/ recall of precautions. pt d/cs without reaching all LTGs. Pt's d/c QC's: eating 6, showering 3, UB 6, LB 4, footwear 2 ( will complete socks at home), toileting 4. D/c OT at this time with recommendations of OT and hip kit. Decreased Activ Tolerance, Dependent Transfers, Impaired Bed Mobility, Impaired I ADL's, Impaired Self-Care Skills PT Head Greenskeeper Goals Longterm Goals PT Longterm Goals Time Frame: Feb 13, 2020 Roll Left to Right (QC): 6 Sit to Lying (QC): 6 Lying-Sitting on Side/Bed(QC): 6 Sit to Stand (QC): 4 (SBA) Chair/Yvt-as-Nkoxn Xfer(QC): 4 (SBA) Car Transfer (QC): 4 (SBA) Does the Patient Walk: Yes Walk 10 feet (QC): 4 Walk 10ft-Uneven Surface(QC): 4 Walk 50ft with 2 Turns (QC): 4 1 Step (curb) (QC): 4 OT Head Greenskeeper Goals Head Greenskeeper Goals Time Frame: Feb 06, 2020 Eating (FIM): 6 Eating (QC): 6 (met) Oral Hygiene (QC): 6 (met) Shower/Bathe Self (QC): 6 Upper Body Dressing (QC): 6 (met) Lower Body Dressing (QC): 6 On/Off Footwear (QC): 6 Toileting(FIM): 6 Toileting Hygiene (QC): 6 Toilet/Commode Transfer (QC): 4 (SBA) Additional Goals: 1-Demonstrate ADL Tasks, 2-Verbalize Understanding, 3- ImproveStrength/Delmy 1=Demonstrate adherence to instructed precautions during ADL tasks. 2=Patient will verbalize/demonstrate understanding of assistive devices/modifications for ADL. 3=Patient will improve strength/tolerance for activity to enable patient to perform ADL's. Speech Longterm Goals Longterm Goals Patient will improve cognitive-communication necessary for safety and daily living tasks with minimal assist. GIOVANNA ARMENTA OTR Feb 07, 2020 12:03
== END 2020-02-06 10:50 | disposition home health service (06) | DRG 560 ==
PROVIDERS: ADMIT Internal Medicine; ATTEND Internal Medicine
DX: S72.001D Fracture of unspecified part of neck of right femur, subsequent encounter for closed fracture with routine healing (principal); I69.351 Hemiplegia and hemiparesis following cerebral infarction affecting right dominant side; I69.319 Unspecified symptoms and signs involving cognitive functions following cerebral infarction; I69.398 Other sequelae of cerebral infarction; M21.371 Foot drop, right foot; L76.32 Postprocedural hematoma of skin and subcutaneous tissue following other procedure; L89.612 Pressure ulcer of right heel, stage 2; K52.9 Noninfective gastroenteritis and colitis, unspecified; R15.9 Full incontinence of feces; R32 Unspecified urinary incontinence; I12.9 Hypertensive chronic kidney disease with stage 1 through stage 4 chronic kidney disease, or unspecified chronic kidney disease; N18.9 Chronic kidney disease, unspecified; E11.9 Type 2 diabetes mellitus without complications; F41.9 Anxiety disorder, unspecified; F32.9 Major depressive disorder, single episode, unspecified; E78.00 Pure hypercholesterolemia, unspecified; Z85.51 Personal history of malignant neoplasm of bladder; Z79.84 Long term (current) use of oral hypoglycemic drugs; Z87.01 Personal history of pneumonia (recurrent)
CPT/HCPCS: 36415; 80053; 82962; 85025; 94760